=== PATIENT | female | born 1980 | race Caucasian/White ===

== ENCOUNTER 2016-06-30 07:32 | Inpatient (IN) ==
--- NOTE | 2016-06-30 07:42 | Emergency Department Note ---
Disposition Clinical Impression: Pleural effusion Anemia Qualifiers: Anemia type: unspecified type Qualified Code(s): D64.9 - Anemia, unspecified Chest pain Qualifiers: Chest pain type: unspecified Qualified Code(s): R07.9 - Chest pain, unspecified Pneumonia Qualifiers: Pneumonia type: due to unspecified organism Laterality: unspecified laterality Lung location: unspecified part of lung Qualified Code(s): J18.9 - Pneumonia, unspecified organism Disposition: Admitted As Inpatient Condition: Fair Referrals: Colt Espinoza MD [Primary Care Provider] - Time of Disposition: 09:41 SOB HPI - General Stated Complaint: MARCO/ Chest tightness Time Seen by Provider: 06/30/16 07:35 Source: patient Mode of arrival: wheelchair Limitations: no limitations Nursing Notes Reviewed: Yes Vital Signs Reviewed: Yes - History of Present Illness 35-year-old renal failure patient who comes in complaining of shortness of breath and chest pain. Patient was hospitalized outside facility discharge yesterday. Patient did have dialysis yesterday at [facility]. Renal dialysis doctor is Dr. Aly. Pt Subjective Complaint: shortness of breath, chest pain Onset (ago): week(s) (2) Context: recent illness Severity: moderate Consistency/Duration: constant Worsens with: exertion Known history of: congestive heart failure Associated symptoms: Reports: chest pain Treatment prior to arrival: none - Related Data Home Medications Medication Instructions Recorded Confirmed HYDROcodone/Acet 10/325 mg [[place] 1 tab PO QID PRN 01/21/16 04/21/16 10-325 mg] Atorvastatin [Lipitor] 40 mg PO DAILY 04/20/16 04/21/16 CloNIDine HCl [Kapvay] 0.1 mg PO DAILY 04/20/16 04/21/16 ClonazePAM [Klonopin] 2 mg PO BID PRN 04/20/16 04/20/16 Metoclopramide [Reglan] 10 mg PO Q6HR PRN 04/20/16 04/21/16 Pantoprazole Sodium [Protonix] 40 mg PO DAILY 04/20/16 04/20/16 Venlafaxine XR (24 HR) [Effexor XR] 37.5 mg PO HS 04/20/16 04/21/16 Insulin ASPART [NovoLOG] 2 - 10 unit SQ TIDWM 04/21/16 04/21/16 Previous Rx's Medication Instructions Recorded Insulin DETEMIR [Levemir] 80 unit SQ HS [id number] 12/18/15 Aspirin 81 mg PO DAILY #30 tab.chew 12/22/15 Darbepoetin [Aranesp] 60 mcg SQ QWEEK syringe 01/23/16 Ibuprofen [Motrin] 400 mg PO Q6HR PRN 10 Days 01/26/16 Metoprolol [Lopressor] 25 mg PO BID 30 Days 01/26/16 Amlodipine [Norvasc] 5 mg PO BID 30 Days 04/23/16 CloNIDine HCl 0.1 mg PO TID 14 Days 04/23/16 Clopidogrel [Plavix] 75 mg PO DAILY tablet 04/23/16 Isosorbide MONOnitrate (24 HR) 120 mg PO DAILY 30 Days 04/23/16 [Imdur] Lisinopril [Zestril] 20 mg PO BID 30 Days 04/23/16 Omeprazole [PriLOSEC] 20 mg PO BID capsule. 04/23/16 Sennosides/Docusate Sodium [Senna 2 each PO BID PRN #0 tablet 04/23/16 Plus] Allergies Allergy/AdvReac Type Severity Reaction Status Date / Time Amoxicillin Allergy Hives Verified 04/21/16 08:16 ondansetron AdvReac Vomiting Verified 01/25/16 10:04 [From Zofran (as hydrochloride)] Constitutional: Denies: fever, chills, weakness, weight change Eyes: Denies: eye pain, eye discharge, vision change ENT ED: Denies: ear pain, throat pain, dental pain, hearing loss, epistaxis, congestion, dysphagia Cardiovascular: Reports: chest pain, dyspnea on exertion. Denies: palpitations , edema, syncope Respiratory: Reports: dyspnea. Denies: cough, wheezes, hemoptysis, stridor Gastrointestinal: Denies: abdominal pain, nausea, vomiting, diarrhea, constipation, hematemesis, melena, hematochezia Genitourinary: Denies: dysuria, frequency, hematuria, discharge Musculoskeletal: Denies: back pain, neck pain, arthralgia, myalgia Integumentary: Denies: rash, abrasion, lesions Neurological: Denies: headache, weakness, numbness, paresthesias, confusion, abnormal gait, vertigo Psychiatric: Denies: anxiety, depression, suicidal thoughts, homicidal thoughts , auditory hallucinations, visual hallucinations Endocrine: Denies: fatigue Hematological/Lymphatic: Denies: easy bleeding, easy bruising Allergic/Immunologic: Denies: facial swelling, urticaria Past Medical History - Past Medical History Medical history: Reports: diabetes, dialysis, hypertension, renal disease Surgical history: Reports: hysterectomy, other Psychiatric history: Reports: anxiety, depression [employer] history: Reports: other - Social History Smoking Status: Former smoker Smokeless Tobacco Status: No Alcohol use: Reports: none Drug use: Reports: none Physical Exam - General Limitations: no limitations General appearance: alert, in no apparent distress - Head Head exam: atraumatic, normocephalic, normal inspection - Eye Eye exam: Present: normal appearance, PERRL, EOMI - ENT ENT exam: normal exam, normal oropharynx, mucous membranes moist - Neck Neck exam: Present: normal inspection, full ROM, trachea midline - Chest Chest inspection: Present: normal inspection, symmetric chest wall rise - Respiratory Respiratory exam: Present: normal lung sounds bilaterally - Cardiovascular Cardiovascular exam: Present: regular rate, normal rhythm, normal heart sounds - Abdominal Exam Abdominal exam: Present: soft, Non-Tender. Absent: tenderness, distention, guarding, rebound, rigidity - Extremities Exam Extremities exam: Present: other (Transmetatarsal amputation of the left foot). Absent: tenderness, pedal edema - Expanded Lower Extremity Exam Neurovascular/Tendon exam: Absent: motor deficit, sensory deficit, tendon deficit Gait: not tested/not observed - Back Exam Back exam: Present: normal inspection - Neurological Exam Neurological exam: Present: alert, oriented X3. Absent: motor sensory deficit - Psychiatric Psychiatric exam: Present: normal affect, normal mood Course - Consultations Consultation #1: Discussed with , admit. Time: 09:40 Consultation #2: Discussed with , admit. Time: 10:25 Vital Signs Temperature 97.8 F 06/30/16 07:40 Pulse Rate 90 06/30/16 07:40 Respiratory Rate 20 06/30/16 07:40 Blood Pressure 194/96 06/30/16 07:40 O2 Sat by Pulse Oximetry 98 06/30/16 07:40 Temperature 97.8 F 06/30/16 07:40 Pulse Rate 90 06/30/16 09:30 Respiratory Rate 18 06/30/16 09:30 Blood Pressure 181/90 06/30/16 09:30 O2 Sat by Pulse Oximetry 100 06/30/16 09:30 Oxygen Delivery Oxygen Delivery Nasal Cannula Shortness of Breath/Dyspnea - Lab Data Result diagrams: 06/30/16 08:46 06/30/16 08:46 Lab Results 06/30/16 06/30/16 06/30/16 Range/Units 08:46 08:46 08:46 WBC 6.9 (4.3-11.1) K/mcL RBC 2.55 L (3.82-4.97) M/mcL Hgb 6.8 L (11.5-15.4) g/dL Hct 21.9 L (35.3-44.9) % MCV 85.9 (83.0-100.0) fL MCH 26.7 L (28.0-33.3) pg MCHC 31.1 L (31.6-35.5) g/dL RDW 16.9 H (11.5-14.5) % Plt Count 378 (140-400) K/mcL MPV 9.8 (9.4-12.4) fL Immature Gran % 1.0 (0-4) % Seg Neutrophils % 78.9 % Lymphocytes % 7.4 % Monocytes % 10.0 % Eosinophils % 2.6 % Basophils % 0.1 % Neutrophils # 5.5 (1.6-8.9) K/mcL Lymphocytes # 0.5 L (0.6-4.6) K/mcL Monocytes # 0.7 (0.0-1.3) K/mcL Eosinophils # 0.2 (0.0-0.6) K/mcL Basophils # 0.0 (0.0-0.2) K/mcL PT 12.2 H (9.4-12.1) Seconds INR 1.1 APTT 32.0 (26.0-36.0) Seconds Sodium (136-145) mEq/L Potassium (3.5-4.5) mEq/L Chloride (98-109) mEq/L Carbon Dioxide (19-29) mEq/L BUN (7-20) mg/dL Creatinine (0.57-1.11) mg/dL Est GFR ( Amer) (> 60) Est GFR (Non-Af Amer) (> 60) BUN/Creatinine Ratio (6-26) Glucose (70-99) mg/dL Calculated Osmolality (280-300) Calcium (8.6-10.8) mg/dL Total Bilirubin (0.2-1.2) mg/dL Direct Bilirubin (0.0-0.5) mg/dL Indirect Bilirubin (0.0-1.2) mg/dL AST (5-34) Units/L ALT (0-55) Units/L Alkaline Phosphatase (38-126) Units/L Troponin I (0-0.03) ng/mL B-Natriuretic Peptide 1593 H (0-100) pg/mL Serum Total Protein (6.0-8.3) g/dL Albumin (3.5-5.0) g/dL Globulin (2.4-3.5) g/dL Albumin/Globulin Ratio (1.1-2.2) Amylase (25-125) Units/L Lipase (8-78) Units/L 06/30/16 06/30/16 Range/Units 08:46 08:46 WBC (4.3-11.1) K/mcL RBC (3.82-4.97) M/mcL Hgb (11.5-15.4) g/dL Hct (35.3-44.9) % MCV (83.0-100.0) fL MCH (28.0-33.3) pg MCHC (31.6-35.5) g/dL RDW (11.5-14.5) % Plt Count (140-400) K/mcL MPV (9.4-12.4) fL Immature Gran % (0-4) % Seg Neutrophils % % Lymphocytes % % Monocytes % % Eosinophils % % Basophils % % Neutrophils # (1.6-8.9) K/mcL Lymphocytes # (0.6-4.6) K/mcL Monocytes # (0.0-1.3) K/mcL Eosinophils # (0.0-0.6) K/mcL Basophils # (0.0-0.2) K/mcL PT (9.4-12.1) Seconds INR APTT (26.0-36.0) Seconds Sodium 129 L (136-145) mEq/L Potassium 4.5 (3.5-4.5) mEq/L Chloride 96 L (98-109) mEq/L Carbon Dioxide 20 (19-29) mEq/L BUN 59 H (7-20) mg/dL Creatinine 6.99 H (0.57-1.11) mg/dL Est GFR ( Amer) 8 L (> 60) Est GFR (Non-Af Amer) 7 L (> 60) BUN/Creatinine Ratio 8 (6-26) Glucose 158 H (70-99) mg/dL Calculated Osmolality 288 (280-300) Calcium 8.5 L (8.6-10.8) mg/dL Total Bilirubin 0.4 (0.2-1.2) mg/dL Direct Bilirubin 0.2 (0.0-0.5) mg/dL Indirect Bilirubin 0.2 (0.0-1.2) mg/dL AST 10 (5-34) Units/L ALT 7 (0-55) Units/L Alkaline Phosphatase 126 (38-126) Units/L Troponin I 0.06 H* (0-0.03) ng/mL B-Natriuretic Peptide (0-100) pg/mL Serum Total Protein 7.5 (6.0-8.3) g/dL Albumin 2.6 L (3.5-5.0) g/dL Globulin 4.9 H (2.4-3.5) g/dL Albumin/Globulin Ratio 0.5 L (1.1-2.2) Amylase 31 (25-125) Units/L Lipase 26 (8-78) Units/L - EKG Data EKG attestation: Yes I reviewed and interpreted this EKG. EKG shows normal: Reports: sinus rhythm Rate: Reports: normal Rhythm: Reports: NSR T wave inversions noted in: Reports: I, aVL, v6 When compared to previous EKG there are: changes noted (New T-wave inversion in lead 1 aVL and V6) Interpretation: Reports: no acute changes
[2016-06-30 09:00] LABS: Basophils % 0.1 %; Eosinophils # 0.2 K/mcL (0.0-0.6); Eosinophils % 2.6 %; Hematocrit 21.9 % (35.3-44.9); Hemoglobin 6.8 g/dL (11.5-15.4); Lymphocytes # 0.5 K/mcL (0.6-4.6); Lymphocytes % 7.4 %; Mean Corpuscular HGB Conc 31.1 g/dL (31.6-35.5); Mean Corpuscular Hemoglobin 26.7 pg (28.0-33.3); Mean Corpuscular Volume 85.9 fL (83.0-100.0); Mean Platelet Volume 9.8 fL (9.4-12.4); Monocytes # 0.7 K/mcL (0.0-1.3); Neutrophils # 5.5 K/mcL (1.6-8.9); Platelet Count 378 K/mcL (140-400); Red Blood Count 2.55 M/mcL (3.82-4.97); Red Cell Distribution Width 16.9 % (11.5-14.5); Segmented Neutrophils % 78.9 %
[2016-06-30] MEDS ORDERED: *HR* HYDROmorphone (PF) 1 MG/ML SYRINGE IVP ONE ×2 (09:09→10:27)
[2016-06-30 09:11] LABS: INR 1.1; Prothrombin Time 12.2 Seconds (9.4-12.1)
[2016-06-30] MEDS ORDERED: Metoclopramide 10 MG/2 ML VIAL IVP ONE (09:13)
[2016-06-30 09:16] LABS: Albumin 2.6 g/dL (3.5-5.0); Albumin/Globulin Ratio 0.5 (1.1-2.2); Bilirubin,Direct 0.2 mg/dL (0.0-0.5); Bilirubin,Indirect 0.2 mg/dL (0.0-1.2); Bilirubin,Total 0.4 mg/dL (0.2-1.2); Calcium 8.5 mg/dL (8.6-10.8); Globulin 4.9 g/dL (2.4-3.5); Potassium 4.5 mEq/L (3.5-4.5); Total Protein 7.5 g/dL (6.0-8.3)
[2016-06-30] MEDS ORDERED: Azithromycin 500 MG in D5% in Water 250 ML IVPB ONE (09:42)
[2016-06-30] MEDS ORDERED: cloNIDine HCl 0.1 MG TABLET PO ONE (10:52)
[2016-06-30] MEDS ORDERED: Acetaminophen 325 MG TABLET PO PRN (10:57)
[2016-06-30] MEDS ORDERED: Naloxone 0.4 MG/ML INJ IVP PRN (10:57)
[2016-06-30] MEDS ORDERED: Sennosides/Docusate Sodium TABLET PO PRN (11:11)
[2016-06-30] MEDS ORDERED: Metoclopramide 10 MG/10 ML UD.LIQ PO PRN (11:11)
[2016-06-30] MEDS ORDERED: *HR* HYDROcodone/Acet 10/325 mg TABLET PO PRN (11:11)
[2016-06-30] MEDS ORDERED: Isosorbide MONOnitrate (24 HR) 30 MG TAB.ER.24H PO SCH (11:15)
[2016-06-30] MEDS: *HR* Morphine 2 MG/ML SYRINGE IVP PRN ×3 (12:47→20:55)
--- NOTE | 2016-06-30 12:57 | Internal Med History&Physical ---
Date of Encounter: 06/30/16 Time of Encounter: 10:30 Assessment and Plan (1) Hypertensive urgency Current visit: Yes Status: Acute noted to have h/o- uncontrolled HTN; will give all her home meds, FIRST DOSE NOW ; she is noted to be on multiple antihypertensives- beta-keesha, ACEI, nitrate , calcium channel keesha, Clonidine; (2) Anemia Current visit: Yes Status: Acute Acute on chronic anemia, normocytic, related to chronic disease- Case d/w Nephrology by ER physician, plan to transfuse 1unit PRBC and monitor Hb; check stool for occult blood and avoid anticoagulation if possible; need to continue antiplatelets for now in light of new coronary stents; no evidence of active blood loss; receives Epogen and Aranesp; Qualifiers: Anemia type: unspecified type Qualified Code(s): D64.9 - Anemia, unspecified (3) Chest pain Current visit: Yes Status: Acute likely related to uncontrolled HTN; Troponin leak is likely related to HTN and ESRD, noted to have chronic slight elevation in Troponin; continue Telemetry monitoring; trend Troponins; continue ASA, Plavix and statin and beta-keesha; patient underwent recent stent placement, try to obtain records; will consult Cardiology if Troponins trend up or if patient has acute chest pain; Qualifiers: Chest pain type: precordial chest pain Qualified Code(s): R07.2 - Precordial pain (4) Pleural effusion Current visit: Yes Status: Chronic Recurrent chronic left pleural effusion; less likely Pneumonia after reviewing previous chest XRay imaging; this is likely due to noncompliance with HD sessions; reinforced compliance; (5) Medical non-compliance Current visit: Yes Status: Chronic (6) CAD (coronary artery disease) Current visit: Yes Status: Chronic plan as above; continue home meds; Qualifiers: Coronary Disease-Associated Artery/Lesion type: [place] artery [place] vs. transplanted heart: [place] heart Associated angina: without angina Qualified Code(s): I25.10 - Atherosclerotic heart disease of [place] coronary artery without angina pectoris (7) DM type 1 (diabetes mellitus, type 1) Current visit: Yes Status: Chronic Accucheck blood glucose monitoring with basal bolus insulin regimen; diabetic diet; noted to be non-compliant with insulin at home; Qualifiers: Diabetes mellitus complication status: with kidney complications Diabetes mellitus complication detail: with chronic kidney disease Chronic kidney disease stage: on chronic dialysis Qualified Code(s): E10.22 - Type 1 diabetes mellitus with diabetic chronic kidney disease; N18.6 - End stage renal disease; Z99.2 - Dependence on renal dialysis (8) ESRD (end stage renal disease) on dialysis Current visit: Yes Status: Chronic Reports change in HD schedule to MWF; underwent HD yesterday; Nephrology consulted by ER physician; continue home meds; (9) Gastroparesis Current visit: Yes Status: Chronic diabetic; continue prokinetics and PRN antiemetics; Internal Medicine - H&P: HPI Chief complaint: Shortness of breath Admitted From: Emergency Dept Plans for Post Hospital Care: Home History of present illness: Ms. Benavidez is a 35 year old female with history of end-stage renal disease on hemodialysis, type 1 diabetes and hypertension with medical noncompliance presents with complaints of shortness of breath and chest tightness that started last night. Patient provides a vague history and unable to provide specific details regarding her complaints. She reports her pain was retrosternal, radiating to both sides of her back, intermittent, relieved with using oxygen facemask, moderate in intensity and pressure-like sensation. No orthopnea, leg swelling, palpitations or syncope. She also had some difficulty breathing associated with the chest pain, with no wheezing. She reports chronic dry cough with no fever or chills, no nausea or vomiting. No hematemesis, melena or hematochezia. She does use oxygen at home at 2-3 L/m via nasal cannula but she also has a simple face mask that she uses during episodes of anxiety. She is noted to be noncompliant with her medications and hemodialysis sessions and noted to have uncontrolled blood pressure and chronic left-sided pleural effusion. She was recently hospitalized at [facility] with similar complaints and discharged 2 days back. Past Med Surg Social Fam HX - Past Medical History Medical history: coronary artery disease, diabetes, dialysis, hypertension, renal disease Psychiatric history: anxiety, depression - Past Surgical History Surgical History: hysterectomy (Tubal ligation), other (Adenoidectomy, right below-knee amputation) - Social History Smoking Status: Current some day smoker (Smoked about 1 pack per day for 20 years, quit smoking 2 months ago, smokes a few occasionally) Smokeless Tobacco Status: No Alcohol use: none Drug use: none Occupational status: disabled Current living situation: Home Activity Level: Independent ambulation Recent Out of Country Travel Within the Last 8 Weeks: No Exposure or Possible Exposure to Illness During Travel: No - Family History Mother Adopted: No Family Member Ethnicity: Non- Living Status: Still Living Hx Family Cardiac Disorders: Yes (Father with coronary artery disease) Hx Family Respiratory Disorders: No Hx Family Cancer: Yes (2008 breast cancer) Hx Family GI Disorders: No Hx Family Endocrine Disorder: Yes (Mother with dm) Hx Family Neuromuscular Disorders: No Hx Family Neurologic Disorders: No Hx Family HEENT Disorders: No Hx Family Autoimmune Disorders: No - Additional Family History Additional family history: Multiple family members with DM Internal Medicine - H&P: Meds Insulin DETEMIR [Levemir] 80 unit SQ HS [id number] 12/18/15 [Rx] Aspirin 81 mg PO DAILY #30 tab.chew 12/22/15 [Rx] HYDROcodone/Acet 10/325 mg [[place] 10-325 mg] 1 tab PO QID PRN 01/21/16 [History] Darbepoetin [Aranesp] 60 mcg SQ QWEEK syringe 01/23/16 [Rx] Ibuprofen [Motrin] 400 mg PO Q6HR PRN 10 Days 01/26/16 [Rx] Metoprolol [Lopressor] 25 mg PO BID 30 Days 01/26/16 [Rx] ClonazePAM [Klonopin] 2 mg PO BID PRN 04/20/16 [History] Metoclopramide [Reglan] 10 mg PO Q6HR PRN 04/20/16 [History] Pantoprazole Sodium [Protonix] 40 mg PO DAILY 04/20/16 [History] Venlafaxine XR (24 HR) [Effexor XR] 37.5 mg PO HS 04/20/16 [History] Insulin ASPART [NovoLOG] 2 - 10 unit SQ TIDWM 04/21/16 [History] Clopidogrel [Plavix] 75 mg PO DAILY tablet 04/23/16 [Rx] Isosorbide MONOnitrate (24 HR) [Imdur] 120 mg PO DAILY 30 Days 04/23/16 [Rx] Lisinopril [Zestril] 20 mg PO BID 30 Days 04/23/16 [Rx] Omeprazole [PriLOSEC] 20 mg PO BID raymond. 04/23/16 [Rx] Sennosides/Docusate Sodium [Senna Plus] 2 each PO BID PRN #0 tablet 04/23/16 [Rx ] Amlodipine/Atorvastatin [[place] 5 mg-40 mg Tablet] 1 tab PO DAILY 06/30/16 [ History] CloNIDine [Catapres-Tts 1] 0.2 mg TD QWEEK 06/30/16 [History] NIFEdipine [Nifedical Xl] 60 mg PO DAILY 06/30/16 [History] Allergies Amoxicillin Allergy (Verified 04/21/16 08:16) Hives ondansetron [From Zofran (as hydrochloride)] Adverse Reaction (Verified 10:04) Vomiting All Systems PM: A 10-system review of systems was performed and is negative for pertinent findings except as documented above in the HPI. - Constitutional Constitutional: no chills, no fever(s), no night sweats - EENT Eyes: no change in vision, no discharge, no pain, no photophobia Ears: no ear discharge, no ear pain, no tinnitus Nose, mouth and throat: no dysphagia, no nasal discharge, no neck pain, no sore throat - Cardiovascular Cardiovascular ROS IM: chest pain, dyspnea - Respiratory Respiratory: cough - Gastrointestinal Gastrointestinal: dysphagia, no abdominal pain, no diarrhea, no hematemesis, no hematochezia, no melena, no nausea, no vomiting - Genitourinary Genitourinary: no change in urinary stream, no dysuria, no flank pain, no hematuria - Musculoskeletal Musculoskeletal ROS IM: no numbness, no tingling - Integumentary Integumentary IM: no rash, no unusual bruising - Neurological Neurological ROS: no confusion, no convulsions, no focal weakness, no numbness, no tingling, no tremor(s) - Hematologic/Lymphatic Hematologic/Lymphatic: no easy bruising - Constitutional Vitals: Temp Pulse Resp BP Pulse Ox 98.4 F 89 16 173/94 100 06/30/16 11:03 06/30/16 11:03 06/30/16 11:03 06/30/16 11:03 06/30/16 11:03 General appearance: Present: A&O X 3, answers questions appropriately - Head Head exam: Present: atraumatic, normocephalic - Neck Neck exam general surgery: Present: supple, trachea midline. Absent: lymphadenopathy - Respiratory Respiratory exam: Present: decreased breath sounds (At left base), CTAB. Absent : accessory muscle use, rales, rhonchi, wheezes - Cardiovascular Cardiovascular exam: Present: RRR, +S1, +S2. Absent: diastolic murmur, gallop, rubs, systolic murmur - GI/Abdominal GI/Abdominal exam: Present: normal bowel sounds, soft (obese and nontender), no peritoneal signs. Absent: distended, tenderness - Extremities Exam Extremities exam: Present: warm, radial pulses palpable and symetrical. Absent : calf tenderness, cyanotic, pedal edema Additional comments: s/p right BKA, stump clean; no significant pedal edema in left leg - Neurological Exam Neurological exam: Present: CN II-XII intact, oriented X3, no focal deficits. Absent: pronater drift, facial droop, speech deficit - Skin Skin exam: Present: dry, intact Internal Med - H&P Results - Labs CBC & Chem 7: 06/30/16 08:46 06/30/16 08:46 Labs: Cardiac Enzymes 06/30/16 Range/Units 11:35 Troponin I 0.06 H* (0-0.03) ng/mL
[2016-06-30] MEDS ORDERED: D5% in Water 1,000 ML IV PRN (14:11)
[2016-06-30] MEDS ORDERED: *HR* Dextrose 50 % in Water (Syg) 50 ML SYRINGE IVP PRN (14:11)
[2016-06-30] MEDS ORDERED: Dextrose Gel 15 GM PO PRN ×2 (14:11)
[2016-06-30] MEDS: NIFEdipine XL (24 HR) 60 MG TAB.ER.24 PO SCH (14:31)
[2016-06-30] MEDS: Isosorbide MONOnitrate (24 HR) 60 MG TAB.ER.24H PO SCH (14:31)
[2016-06-30] MEDS: Lisinopril 20 MG TABLET PO SCH ×2 (14:31→20:54)
[2016-06-30 15:09] LABS: Hemoglobin A1C 7.4 %
[2016-06-30] MEDS: Insulin LISPRO 300 UNITS/3 ML VIAL SQ SCH ×2 (15:38→22:47)
[2016-06-30] MEDS ORDERED: 0.9 % Sodium Chloride 500 ML ONE (16:22)
[2016-06-30] MEDS: *HR* Promethazine 25 MG/ML VIAL IVP PRN (18:34)
[2016-06-30] MEDS ORDERED: Venlafaxine XR (24 HR) 75 MG CAP.ER.24H PO SCH (21:00)
[2016-06-30] MEDS: Insulin DETEMIR 100 UNIT/ML X5UNITS SQ SCH (22:47)
[2016-06-30] MEDS: Venlafaxine XR (24 HR) 37.5 MG CAP.ER.24H PO SCH (22:47)
[2016-06-30] MEDS: clonazePAM 1 MG TABLET PO PRN (22:50)
[2016-07-01] MEDS: *HR* Promethazine 25 MG/ML VIAL IVP PRN ×4 (00:46→20:59)
[2016-07-01 01:43] LABS: Basophils % 0.5 %; Eosinophils # 0.2 K/mcL (0.0-0.6); Hematocrit 27.1 % (35.3-44.9); Immature Granulocytes % 0.9 % (0-4); Lymphocytes % 12.3 %; Mean Corpuscular HGB Conc 31.4 g/dL (31.6-35.5); Mean Corpuscular Hemoglobin 27.2 pg (28.0-33.3); Mean Corpuscular Volume 86.9 fL (83.0-100.0); Mean Platelet Volume 10.2 fL (9.4-12.4); Monocytes # 0.9 K/mcL (0.0-1.3); Monocytes % 11.1 %; Neutrophils # 5.7 K/mcL (1.6-8.9); Nucleated Red Blood Cells 0.3 /100 WBC (0); Platelet Count 293 K/mcL (140-400); Red Blood Count 3.12 M/mcL (3.82-4.97); Red Cell Distribution Width 16.4 % (11.5-14.5); Segmented Neutrophils % 72.2 %
[2016-07-01 01:51] LABS: Hemoglobin 8.5 g/dL (11.5-15.4)
[2016-07-01 01:55] LABS: Calcium 8.3 mg/dL (8.6-10.8); Magnesium 2.2 mg/dL (1.6-2.6); Potassium 4.9 mEq/L (3.5-4.5)
[2016-07-01 02:20] LABS: Hypochromasia Present (Not Present); Platelet Estimate Normal (Normal)
[2016-07-01] MEDS: *HR* Morphine 2 MG/ML SYRINGE IVP PRN ×3 (04:11→20:59)
[2016-07-01 04:59] LABS: Hematocrit 24.4 % (35.3-44.9); Hemoglobin 7.7 g/dL (11.5-15.4)
[2016-07-01] MEDS ORDERED: Aspirin 81 MG TAB.CHEW ONE (06:18)
[2016-07-01] MEDS: Aspirin 81 MG TAB.CHEW PO SCH (06:20)
[2016-07-01] MEDS: Lisinopril 20 MG TABLET PO SCH ×2 (07:41→19:51)
[2016-07-01] MEDS: cloNIDine HCl 0.1 MG TABLET PO SCH (07:41)
[2016-07-01] MEDS: NIFEdipine XL (24 HR) 60 MG TAB.ER.24 PO SCH (07:41)
[2016-07-01] MEDS: Isosorbide MONOnitrate (24 HR) 60 MG TAB.ER.24H PO SCH (07:41)
[2016-07-01] MEDS: Insulin LISPRO 300 UNITS/3 ML VIAL SQ SCH ×4 (07:42→20:11)
--- NOTE | 2016-07-01 08:12 | Nephrology Consult Note ---
Date of Encounter: 07/01/16 Time of Encounter: 08:10 Assessment and Plan (1) ESRD (end stage renal disease) on dialysis Current Visit: Yes Status: Chronic The patient will undergo her usual dialysis today. We will do a workup of her anemia including iron studies and stool guaiacs. She will receive additional blood transfusions on dialysis today. She will be maintained on Aranesp. She is just received her outpatient antihypertensive medications. We will make adjustments as necessary. (2) Anemia Current Visit: Yes Status: Acute Qualifiers: Anemia type: unspecified type Qualified Code(s): D64.9 - Anemia, unspecified (3) Chest pain Current Visit: Yes Status: Acute Qualifiers: Chest pain type: precordial chest pain Qualified Code(s): R07.2 - Precordial pain (4) Hypertensive urgency Current Visit: Yes Status: Acute (5) DM type 1 (diabetes mellitus, type 1) Current Visit: Yes Status: Chronic Qualifiers: Diabetes mellitus complication status: with kidney complications Diabetes mellitus complication detail: with chronic kidney disease Chronic kidney disease stage: on chronic dialysis Qualified Code(s): E10.22 - Type 1 diabetes mellitus with diabetic chronic kidney disease; N18.6 - End stage renal disease; Z99.2 - Dependence on renal dialysis History of Present Illness - History of Present Illness This is a 35-year-old female with end-stage renal disease in the setting of insulin requiring diabetes. Patient receives dialysis in [place] via a tunneled dialysis catheter 3 days per week. Patient has a history of poor compliance with dialysis attendance as well as poor compliance with medications. She has a history of chronic nausea for which she is seeing GI in the past. She has a history of drug-seeking behavior. She is admitted at this time with chest pain. She recently was hospitalized at [place] on multiple occasions. She reports that she had a coronary stent placed back in April. Currently her main complaint is that of some chest discomfort and shortness of breath. Her blood pressure is poorly controlled. She has a history of poor compliance with her antihypertensive medications. She presents with severe anemia with a hemoglobin of about 6.7. She denies any melena or hematochezia. She does have a history of chronic nausea as noted above. Past Med Surg Social Fam HX - Past Medical History Medical history: coronary artery disease, diabetes, dialysis, hypertension, renal disease Psychiatric history: anxiety, depression - Past Surgical History Surgical History: hysterectomy, other - Social History Smoking Status: Current some day smoker Smokeless Tobacco Status: No Alcohol use: none Drug use: none - Family History Mother Adopted: No Family Member Ethnicity: Non- Living Status: Still Living Hx Family Cardiac Disorders: Yes (Father with coronary artery disease) Hx Family Respiratory Disorders: No Hx Family Cancer: Yes (Breast) Hx Family GI Disorders: No Hx Family Endocrine Disorder: Yes (Mother with dm) Hx Family Neuromuscular Disorders: No Hx Family Neurologic Disorders: No Hx Family HEENT Disorders: No Hx Family Autoimmune Disorders: No Medications and Allergies Insulin DETEMIR [Levemir] 80 unit SQ HS [id number] 12/18/15 [Rx] Aspirin 81 mg PO DAILY #30 tab.chew 12/22/15 [Rx] HYDROcodone/Acet 10/325 mg [[place] 10-325 mg] 1 tab PO QID PRN 01/21/16 [History] Darbepoetin [Aranesp] 60 mcg SQ QWEEK syringe 01/23/16 [Rx] Ibuprofen [Motrin] 400 mg PO Q6HR PRN 10 Days 01/26/16 [Rx] Metoprolol [Lopressor] 25 mg PO BID 30 Days 01/26/16 [Rx] ClonazePAM [Klonopin] 2 mg PO BID PRN 04/20/16 [History] Metoclopramide [Reglan] 10 mg PO Q6HR PRN 04/20/16 [History] Pantoprazole Sodium [Protonix] 40 mg PO DAILY 04/20/16 [History] Venlafaxine XR (24 HR) [Effexor XR] 37.5 mg PO HS 04/20/16 [History] Insulin ASPART [NovoLOG] 2 - 10 unit SQ TIDWM 04/21/16 [History] Clopidogrel [Plavix] 75 mg PO DAILY tablet 04/23/16 [Rx] Isosorbide MONOnitrate (24 HR) [Imdur] 120 mg PO DAILY 30 Days 04/23/16 [Rx] Lisinopril [Zestril] 20 mg PO BID 30 Days 04/23/16 [Rx] Omeprazole [PriLOSEC] 20 mg PO BID capsule. 04/23/16 [Rx] Sennosides/Docusate Sodium [Senna Plus] 2 each PO BID PRN #0 tablet 04/23/16 [Rx ] Amlodipine/Atorvastatin [Caduet 5 mg-40 mg Tablet] 1 tab PO DAILY 06/30/16 [ History] CloNIDine [Catapres-Tts 1] 0.2 mg TD QWEEK 06/30/16 [History] NIFEdipine [Nifedical Xl] 60 mg PO DAILY 06/30/16 [History] Allergies Amoxicillin Allergy (Verified 04/21/16 08:16) Hives ondansetron [From Zofran (as hydrochloride)] Adverse Reaction (Verified 10:04) Vomiting Review of Systems Constitutional: weakness, no excessive sweating, no weight loss Eyes: bilateral: blurred vision (patient denies), diplopia (patient denies) Nose, mouth and throat: no dizziness, no headache(s) Cardiovascular: chest pain at rest, chest pain with activity, dyspnea on exertion Respiratory: dyspnea, dyspnea on exertion Gastrointestinal: as per HPI, nausea Musculoskeletal: as per HPI Integumentary: no hirsutism, no striae Neurological: weakness Psychiatric: no depression, no difficulty concentrating Endocrine: as per HPI Hematologic/Lymphatic: no easy bruising, no lymphadenopathy Exam - Vital Signs Vital signs: Initial Vital Signs Temp Pulse Resp BP Pulse Ox 97.8 F 90 20 194/96 98 06/30/16 07:40 06/30/16 07:40 06/30/16 07:40 06/30/16 07:40 06/30/16 07:40 Vital Signs - Last 8 Hours Temp Pulse Resp BP Pulse Ox 07/01/16 08:01 96 07/01/16 07:38 97.5 F L 86 16 210/98 96 07/01/16 05:06 97.4 F L 83 18 189/111 97 07/01/16 01:27 97.5 F L 83 18 181/96 96 Intake and Output 06/30/16 07/01/16 07/01/16 23:59 07:59 15:59 Intake Total 350 / 350 Balance 350 / 350 Intake: Blood Product 350 / 350 Rbcs Leuko Poor As-1 350 / 350 Unit [id number] Other: Stool Size Large Stool Consistency loose soft Stool Characteristics Normal for Patient Stool Color Brown # Bowel Movements 1 Weight 98.883 kg Blood Glucose* 154 52 Patient Weight 07/01/16 23:59 Weight 98.883 kg - General Appearance Exam: Patient is alert and oriented. She appears chronically ill. Supple. Lungs mesh breath sounds otherwise clear. Heart regular rhythm with a 2/6 systolic ejection murmur. Abdomen demonstrates no bowel sounds no bruits masses in a megaly or tenderness. Patient is status post left transmetatarsal amputation right below-knee amputation. There is no peripheral edema. There is a tunnel dialysis catheter in the right side of the chest. Results - Lab Results 07/01/16 04:50 07/01/16 01:27 Most recent lab results Calcium 8.3 mg/dL (8.6-10.8) L 07/01/16 01:27 Magnesium 2.2 mg/dL (1.6-2.6) 07/01/16 01:27 Consult Discharge Plan - Plan
[2016-07-01] MEDS ORDERED: 0.9 % Sodium Chloride 250 ML IV PRN (08:16)
--- NOTE | 2016-07-01 09:35 | Electrocardiograph Report ---
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
[2016-07-01 11:13] LABS: Phosphorous 8.2 mg/dL (2.3-4.7)
[2016-07-01 11:39] LABS: Hepatitis B Surface Antigen Nonreactive (Nonreactive)
[2016-07-01 11:40] LABS: Hepatitis B Surface Antibody 20.87 mIU/mL
[2016-07-01 11:52] LABS: Folate 4.8 ng/mL (7.0-31.4)
[2016-07-01] MEDS ORDERED: *HR* HYDROcodone/Acet 7.5/325 mg TABLET PO PRN (13:21)
[2016-07-01] MEDS: *HR* HYDROcodone/Acet 10/325 mg TABLET PO PRN (16:28)
[2016-07-01] MEDS: clonazePAM 1 MG TABLET PO PRN (19:51)
[2016-07-01] MEDS: Venlafaxine XR (24 HR) 37.5 MG CAP.ER.24H PO SCH (19:51)
[2016-07-01] MEDS: Insulin DETEMIR 100 UNIT/ML X5UNITS SQ SCH (20:10)
[2016-07-02] MEDS: *HR* Morphine 2 MG/ML SYRINGE IVP PRN ×3 (01:45→10:22)
[2016-07-02] MEDS: *HR* Promethazine 25 MG/ML VIAL IVP PRN ×3 (03:25→17:25)
[2016-07-02 08:14] LABS: Basophils % 0.6 %; Eosinophils # 0.2 K/mcL (0.0-0.6); Eosinophils % 2.7 %; Hematocrit 29.4 % (35.3-44.9); Hemoglobin 9.6 g/dL (11.5-15.4); Immature Platelets 2.3 % (1.1-6.1); Lymphocytes # 0.8 K/mcL (0.6-4.6); Lymphocytes % 12.1 %; Mean Corpuscular HGB Conc 32.7 g/dL (31.6-35.5); Mean Corpuscular Hemoglobin 27.2 pg (28.0-33.3); Mean Corpuscular Volume 83.3 fL (83.0-100.0); Mean Platelet Volume 9.5 fL (9.4-12.4); Monocytes % 14.4 %; Neutrophils # 4.8 K/mcL (1.6-8.9); Platelet Count 427 K/mcL (140-400); Red Blood Count 3.53 M/mcL (3.82-4.97); Red Cell Distribution Width 16.7 % (11.5-14.5); Segmented Neutrophils % 69.2 %
--- NOTE | 2016-07-02 08:23 | Nephrology Progress Note ---
Date of Encounter: 07/02/16 Time of Encounter: 08:05 - Assessment and Plan (1) ESRD (end stage renal disease) on dialysis Current Visit: Yes Status: Chronic Denies CP. HD tomorrow, keeping MWF schedule. Subjective Interval history: Sitting up in bed watching tv and eating breakfast. Denies CP. Admits SOB and states cannot lay down because MAR[place]. O2NC. Does not appear in any distress and there is no conversational SOB. Objective - Vital Signs Vital signs: Vital Signs Temp Pulse Resp BP Pulse Ox 07/02/16 07:20 97.4 F L 89 18 182/81 95 07/02/16 03:32 97.4 F L 90 18 176/84 96 07/01/16 23:57 97.6 F 94 16 183/81 96 07/01/16 20:04 98.1 F 97 16 167/85 98 07/01/16 14:20 97.7 F 20 162/88 07/01/16 14:10 153/78 07/01/16 14:00 158/85 07/01/16 13:45 138/89 07/01/16 13:43 97.6 F 81 20 150/86 07/01/16 13:30 150/86 07/01/16 13:15 158/92 07/01/16 13:00 146/87 07/01/16 12:45 176/95 07/01/16 12:30 171/98 07/01/16 12:20 97.5 F L 83 20 161/99 07/01/16 12:15 161/99 07/01/16 12:05 97.7 F 84 18 175/104 07/01/16 12:00 175/104 07/01/16 11:56 97.7 F 83 18 175/104 07/01/16 11:46 97.6 F 83 20 181/105 07/01/16 11:45 181/105 07/01/16 11:31 97.6 F 96 20 93/49 07/01/16 11:30 153/102 07/01/16 11:15 186/109 07/01/16 11:00 182/111 07/01/16 10:45 196/109 07/01/16 10:40 97.5 F L 20 194/115 Intake and Output 07/01/16 07/02/16 07/02/16 23:59 07:59 15:59 Intake Total 120 / 120 480 / 480 Output Total 0 / 0 Balance 120 / 120 480 / 480 Intake: Oral 120 / 120 480 / 480 Output: Urine 0 / 0 Other: Meal SNACK JELLO Stool Size Moderate Stool Consistency soft Stool Color Brown Weight 96.116 kg Blood Glucose* 198 100 Patient Weight 07/02/16 23:59 Weight 96.116 kg - General Appearance General appearance: Present: well-developed, well-nourished, appears started age , obese EENT: Present: mucous membranes moist Neck: Present: no JVD Additional Comments: scattered rhonchi Cardiology: Present: no edema, regular rate, regular rhythm Additional Comments: R BKA Gastrointestinal: Present: hypoactive bowel sounds, no tenderness, no guarding Integumentary: Present: warm and dry Neurologic: Present: alert and oriented x3 Psychiatric: Present: mood/affect appropriate, cooperative - Lab 07/02/16 08:00 07/01/16 01:27 Most recent lab results Calcium 8.3 mg/dL (8.6-10.8) L 07/01/16 01:27 Phosphorus 8.2 mg/dL (2.3-4.7) H 07/01/16 10:42 Magnesium 2.2 mg/dL (1.6-2.6) 07/01/16 01:27 Consult Discharge Plan - Plan Referrals: Colt Espinoza MD [Primary Care Provider] - (possible ecf)
[2016-07-02] MEDS: Isosorbide MONOnitrate (24 HR) 60 MG TAB.ER.24H PO SCH (08:31)
[2016-07-02] MEDS: Lisinopril 20 MG TABLET PO SCH ×2 (08:31→21:00)
[2016-07-02] MEDS: cloNIDine HCl 0.1 MG TABLET PO SCH ×3 (08:31→20:59)
[2016-07-02] MEDS: Insulin LISPRO 300 UNITS/3 ML VIAL SQ SCH ×4 (08:32→21:30)
[2016-07-02] MEDS: Aspirin 81 MG TAB.CHEW PO SCH (08:46)
[2016-07-02] MEDS: NIFEdipine XL (24 HR) 60 MG TAB.ER.24 PO SCH ×2 (08:47→21:30)
[2016-07-02] MEDS: Metoclopramide 10 MG/10 ML UD.LIQ PO SCH ×2 (14:32→19:40)
--- NOTE | 2016-07-02 16:23 | Internal Med Progress Note ---
Date of Encounter: 07/02/16 Time of Encounter: 16:16 - Assessment and plan (1) Hypertensive urgency Current Visit: Yes Status: Acute Assessment and plan: was noted that clonidine was changed to oral daily and was using as patch will change to oral tid. have also increased to nifedipine 60mg bid. will observe for now, if BP still high will add hydralazine. (2) DM type 1 (diabetes mellitus, type 1) Current Visit: Yes Status: Chronic Qualifiers: Diabetes mellitus complication status: with kidney complications Diabetes mellitus complication detail: with chronic kidney disease Chronic kidney disease stage: on chronic dialysis Qualified Code(s): E10.22 - Type 1 diabetes mellitus with diabetic chronic kidney disease; N18.6 - End stage renal disease; Z99.2 - Dependence on renal dialysis (3) ESRD (end stage renal disease) on dialysis Current Visit: Yes Status: Chronic Assessment and plan: being managed by renal. (4) Gastroparesis Current Visit: Yes Status: Chronic (5) Abdominal pain Current Visit: No Status: Acute Assessment and plan: reports that she has persistent nausea and says that she has vomiting with blood in it. also reports that she sees blood in the stool\ Hb is stable, s/p 1 unit of trasnfusion, will consult GI today for possible EGD. Qualifiers: Abdominal location: left upper quadrant Qualified Code(s): R10.12 - Left upper quadrant pain - Time Spent With Patient 25 - 35 minutes - Subjective Interval history: Patient seen at the bedside, today complains of abdominal pain and reports that she has been vomiting and seen blood in the vomit also complains of passing blood in the stool. She did come in with drop in hemoglobin from her baseline and was transfused 1 unit yesterday at hemodialysis. She denies any chest pain, shortness of breath - Constitutional Vitals: Temp Pulse Resp BP Pulse Ox 97.6 F 88 18 170/95 98 07/02/16 10:59 07/02/16 10:59 07/02/16 10:59 07/02/16 12:15 07/02/16 10:59 General appearance: Present: A&O X 3, answers questions appropriately Exam: General appearance: Present: A&O X 3, answers questions appropriately - Head Head exam: Present: atraumatic, normocephalic - Neck Neck exam general surgery: Present: supple, trachea midline. Absent: lymphadenopathy - Respiratory Respiratory exam: Present: decreased breath sounds (At left base), CTAB. Absent : accessory muscle use, rales, rhonchi, wheezes - Cardiovascular Cardiovascular exam: Present: RRR, +S1, +S2. Absent: diastolic murmur, gallop, rubs, systolic murmur - GI/Abdominal GI/Abdominal exam: Present: normal bowel sounds, soft (obese and nontender), no peritoneal signs. Absent: distended, tenderness - Extremities Exam Extremities exam: Present: warm, radial pulses palpable and symetrical. Absent : calf tenderness, cyanotic, pedal edema Additional comments: s/p right BKA, stump clean; no significant pedal edema in left leg - Neurological Exam Neurological exam: Present: CN II-XII intact, oriented X3, no focal deficits. Absent: pronater drift, facial droop, speech deficit - Skin Skin exam: Present: dry, intact Internal Medicine: Result - Labs CBC & Chem 7: 07/02/16 08:00 07/01/16 01:27 Labs: Short CBC 07/02/16 Range/Units 08:00 WBC 7.0 (4.3-11.1) K/mcL Hgb 9.6 L D (11.5-15.4) g/dL Hct 29.4 L (35.3-44.9) % Plt Count 427 H (140-400) K/mcL Neutrophils # 4.8 (1.6-8.9) K/mcL - ABG Interpretation ABG results: PT/INR, D-dimer PT 12.2 Seconds (9.4-12.1) H 06/30/16 08:46 - Impressions Impressions Chest X-Ray 07/01/16 18:44 IMPRESSION: 1. Cardiomegaly with findings of mild congestive heart failure having slightly improved since the prior study. 2. Left greater than right pleural effusions with left base opacity that may reflect atelectasis. Superimposed pneumonia is conceivable if the patient has fever or leukocytosis. D/ / Diogenes Brannon MD / Diogenes Brannon MD Interpreting Provider: Diogenes Brannon MD Consult Discharge Plan - Plan Referrals: Colt Espinoza MD [Primary Care Provider] - 07/14/16 3:00 pm (please follow up as schedule...)
[2016-07-02] MEDS: *HR* HYDROcodone/Acet 10/325 mg TABLET PO PRN (20:56)
[2016-07-02] MEDS: Venlafaxine XR (24 HR) 37.5 MG CAP.ER.24H PO SCH (21:00)
[2016-07-03] MEDS: *HR* Promethazine 25 MG/ML VIAL IVP PRN ×4 (00:01→17:46)
[2016-07-03] MEDS ORDERED: *HR* Morphine 2 MG/ML SYRINGE IVP ONE (00:13)
[2016-07-03] MEDS ORDERED: Acetaminophen IV 1,000 MG/100 ML INFUS..BTL IVPB ONE (00:14)
[2016-07-03] MEDS: Metoclopramide 10 MG/10 ML UD.LIQ PO SCH ×6 (00:27→23:05)
[2016-07-03] MEDS: Insulin DETEMIR 100 UNIT/ML X5UNITS SQ SCH ×2 (00:28→22:57)
--- NOTE | 2016-07-03 08:30 | Nephrology Progress Note ---
Date of Encounter: 07/03/16 Time of Encounter: 08:20 - Assessment and Plan (1) ESRD (end stage renal disease) on dialysis Current Visit: Yes Status: Chronic No further chest pain, no SOB. BP improved. HD on Wednesday. Subjective Interval history: side lying, layin with head down. No respratory effort noted. denies CP. States is feeling better except has sore throat. Objective - Vital Signs Vital signs: Vital Signs Temp Pulse Resp BP Pulse Ox 07/03/16 07:20 97.5 F L 78 18 143/77 96 07/03/16 04:00 97.5 F L 80 18 152/72 99 07/03/16 00:00 97.7 F 82 17 152/76 99 07/02/16 20:00 97.6 F 86 17 160/89 99 07/02/16 16:13 97.7 F 85 18 163/93 99 07/02/16 12:15 170/95 07/02/16 10:59 97.6 F 88 18 198/110 98 Intake and Output 07/02/16 07/03/16 07/03/16 23:59 07:59 15:59 Intake Total 100 / 100 Balance 100 / 100 Intake: IV Fluids 100 / 100 Ofirmev 1,000 mg In 100 100 / 100 ml @ 400 mls/hr IVPB ONCE ONE Rx#:[id number] Other: Weight 96.7 kg Blood Glucose* 165 72 Patient Weight 07/03/16 23:59 Weight 96.7 kg - General Appearance General appearance: Present: well-developed, well-nourished, appears started age EENT: Present: mucous membranes moist Neck: Present: no JVD Respiratory: Present: clear Cardiology: Present: no edema, regular rate, regular rhythm Additional Comments: right BKA Gastrointestinal: Present: normoactive bowel sounds, no tenderness Integumentary: Present: warm and dry Neurologic: Present: alert and oriented x3 Psychiatric: Present: mood/affect appropriate, cooperative - Lab 07/02/16 08:00 07/01/16 01:27 Most recent lab results Calcium 8.3 mg/dL (8.6-10.8) L 07/01/16 01:27 Phosphorus 8.2 mg/dL (2.3-4.7) H 07/01/16 10:42 Magnesium 2.2 mg/dL (1.6-2.6) 07/01/16 01:27 Consult Discharge Plan - Plan Referrals: Colt Espinoza MD [Primary Care Provider] - 07/14/16 3:00 pm (please follow up as schedule...)
[2016-07-03] MEDS: Insulin LISPRO 300 UNITS/3 ML VIAL SQ SCH ×4 (08:39→22:24)
[2016-07-03] MEDS: cloNIDine HCl 0.1 MG TABLET PO SCH ×3 (09:12→22:57)
[2016-07-03] MEDS: Isosorbide MONOnitrate (24 HR) 60 MG TAB.ER.24H PO SCH (09:12)
[2016-07-03] MEDS: NIFEdipine XL (24 HR) 60 MG TAB.ER.24 PO SCH ×2 (09:13→22:58)
[2016-07-03] MEDS: Lisinopril 20 MG TABLET PO SCH ×2 (09:13→22:58)
[2016-07-03] MEDS ORDERED: 0.9 % Sodium Chloride 250 ML IV PRN ×2 (09:32→09:52)
[2016-07-03 09:41] LABS: Basophils % 0.5 %; Eosinophils # 0.4 K/mcL (0.0-0.6); Eosinophils % 4.1 %; Hematocrit 30.6 % (35.3-44.9); Hemoglobin 9.6 g/dL (11.5-15.4); Immature Granulocytes % 0.7 % (0-4); Lymphocytes # 1.1 K/mcL (0.6-4.6); Lymphocytes % 12.7 %; Mean Corpuscular HGB Conc 31.4 g/dL (31.6-35.5); Mean Corpuscular Hemoglobin 26.4 pg (28.0-33.3); Mean Corpuscular Volume 84.1 fL (83.0-100.0); Mean Platelet Volume 9.3 fL (9.4-12.4); Monocytes # 1.1 K/mcL (0.0-1.3); Monocytes % 12.3 %; Neutrophils # 6.1 K/mcL (1.6-8.9); Platelet Count 405 K/mcL (140-400); Red Blood Count 3.64 M/mcL (3.82-4.97); Red Cell Distribution Width 16.5 % (11.5-14.5); Segmented Neutrophils % 69.7 %
--- NOTE | 2016-07-03 10:35 | Anesthesia Evaluation PreOp ---
Date of Encounter: 07/03/16 Time of Encounter: 10:33 - Past History Planned Operation: Colonoscopy Cardiac History: HTN (Hypertensive urgency this admission 06/30/2016. Reportedly non-compliant with medications. Maintained on Metoprolol, Nifedipine, Lisinopril , Imdur, Clonidine), Hyperlipidemia (maintained on Amlodipine-Atorvastatin [ Caduet]), Other (CAD - maintained on ASA, Plavix. Anemia of Chronic dz) Pulmonary History: Smoker (1ppd x 20 yrs. "Quit" 2 months ago), Other (Recurent L-Pleural effusion) [employer] History: Other (Anxiety/Depression) Other Medical History: Renal (ESRD on hemodialysis. Non-compliance w/HD noted per chart), Diabetes Type I (maintained on Insulin), GERD (gastroparesis maintained on REglan, Protonix) Anesthesia History: Past Anesthesia (Hyster/Tubal Ligation, Adneoidectomy, R-BKA ) Alcohol Use: none Drug use: none Medications and Allergies Insulin DETEMIR [Levemir] 80 unit SQ HS [id number] 12/18/15 [Rx] Aspirin 81 mg PO DAILY #30 tab.chew 12/22/15 [Rx] HYDROcodone/Acet 10/325 mg [[place] 10-325 mg] 1 tab PO QID PRN 01/21/16 [History] Darbepoetin [Aranesp] 60 mcg SQ QWEEK syringe 01/23/16 [Rx] Ibuprofen [Motrin] 400 mg PO Q6HR PRN 10 Days 01/26/16 [Rx] Metoprolol [Lopressor] 25 mg PO BID 30 Days 01/26/16 [Rx] ClonazePAM [Klonopin] 2 mg PO BID PRN 04/20/16 [History] Metoclopramide [Reglan] 10 mg PO Q6HR PRN 04/20/16 [History] Pantoprazole Sodium [Protonix] 40 mg PO DAILY 04/20/16 [History] Venlafaxine XR (24 HR) [Effexor XR] 37.5 mg PO HS 04/20/16 [History] Insulin ASPART [NovoLOG] 2 - 10 unit SQ TIDWM 04/21/16 [History] Clopidogrel [Plavix] 75 mg PO DAILY tablet 04/23/16 [Rx] Isosorbide MONOnitrate (24 HR) [Imdur] 120 mg PO DAILY 30 Days 04/23/16 [Rx] Lisinopril [Zestril] 20 mg PO BID 30 Days 04/23/16 [Rx] Omeprazole [PriLOSEC] 20 mg PO BID capsule. 04/23/16 [Rx] Sennosides/Docusate Sodium [Senna Plus] 2 each PO BID PRN #0 tablet 04/23/16 [Rx ] Amlodipine/Atorvastatin [Caduet 5 mg-40 mg Tablet] 1 tab PO DAILY 06/30/16 [ History] CloNIDine [Catapres-Tts 1] 0.2 mg TD QWEEK 06/30/16 [History] NIFEdipine [Nifedical Xl] 60 mg PO DAILY 06/30/16 [History] Allergies Amoxicillin Allergy (Verified 04/21/16 08:16) Hives ondansetron [From Zofran (as hydrochloride)] Adverse Reaction (Verified 10:04) Vomiting Anesthesia Results - Labs 07/03/16 09:32 07/01/16 01:27
[2016-07-03] MEDS ORDERED: *HR* Midazolam HCl 5 MG/5 ML VIAL IVP ONE (11:16)
[2016-07-03] MEDS ORDERED: *HR* FentaNYL (PF) 100 MCG/2 ML VIAL ONE (11:17)
--- NOTE | 2016-07-03 11:28 | Gastroenterology Consult Note ---
<IreneChester abdullahi Noemí - Last Filed: 07/03/16 11:26> Date of Encounter: 07/03/16 Time of Encounter: 09:40 - Assessment and plan (1) Hematemesis Current Visit: Yes Status: Acute Assessment and plan: Pt with c/o nausea and vomiting, and states there was bright red blood in the vomitus. Plan for EGD today to r/o esophagitis, gastritis, duodenitis, PUD, MW tear, or AVM. Qualifiers: Nausea presence: with nausea Qualified Code(s): K92.0 - Hematemesis; R11.0 - Nausea (2) BRBPR (bright red blood per rectum) Current Visit: Yes Status: Acute Assessment and plan: Likely secondary to hemorrhoids. Recommend daily fiber supplement. Consider colonoscopy tomorrow. Will speak to Dr. Bonilla after EGD. If plan to proceed with colonoscopy: Clear liquid diet today, no red or purple. NPO at midnight. If unable tolerate NuLytely please use MiraLAX prep. If not clear by 6 AM, give 2 tap water enemas. (3) Anemia Current Visit: Yes Status: Acute Assessment and plan: Hgb 6.8 on admission and 9.6 this AM. Continue to monitor CBC and transfuse PRBC as needed. Qualifiers: Anemia type: unspecified type Qualified Code(s): D64.9 - Anemia, unspecified (4) Abdominal pain Current Visit: No Status: Acute Assessment and plan: Plan for EGD today. Continue PPI. Qualifiers: Abdominal location: left upper quadrant Qualified Code(s): R10.12 - Left upper quadrant pain (5) ESRD (end stage renal disease) on dialysis Current Visit: Yes Status: Chronic Assessment and plan: Management per nephrology (6) Constipation Current Visit: Yes Status: Acute Assessment and plan: Recommend daily fiber supplement and use MiraLAX up to twice a day. Qualifiers: Constipation type: unspecified constipation type Qualified Code(s): K59.00 - Constipation, unspecified - Time Spent With Patient Total time spent is greater than 50% in coordination of care (as documented) at patient's floor/unit and/or counseling patient: GI History of Present Illness - Data of Consult Patient: new to practice Consult date: 07/03/16 Requesting Physician: Mare Jensen - Consult Narrative Reason for consult: anemia, blood in vomit and stool History of present illness: Ms. Benavidez is a 35 year old female with PMHx of CAD, DM, ESRD on dialysis, HTN who presented with SOB and chest tightness. She uses home O2 at 2-3 L/min. She has history of being noncompliant with her medications and hemodialysis sessions. She has a history of drug-seeking behavior. She presented with an Hgb of 6.8 and has received 3 units of PRBC. Hgb yesterday AM was 9.6. Yesterday she began to complain of abdominal pain, bloody vomitus, and blood in her stool. She states she has 1 BM per week, and is using Miralax 1-2 times per week. She states when she passes stool, it is very large and will notice occasional BRBPR. Procedures: None NSAIDs: Ibuprofen, ASA Anticoagulation: Plavix Past Med Surg Social Fam HX - Past Medical History Medical history: coronary artery disease, diabetes, dialysis, hypertension, renal disease Psychiatric history: anxiety, depression - Past Surgical History Surgical History: hysterectomy, other - Social History Smoking Status: Never smoker Smokeless Tobacco Status: No Alcohol use: none Drug use: none - Family History Mother Adopted: No Family Member Ethnicity: Non- Living Status: Still Living Hx Family Cardiac Disorders: Yes (Father with coronary artery disease) Hx Family Respiratory Disorders: No Hx Family Cancer: Yes (Breast) Hx Family GI Disorders: No Hx Family Endocrine Disorder: Yes (Mother with dm) Hx Family Neuromuscular Disorders: No Hx Family Neurologic Disorders: No Hx Family HEENT Disorders: No Hx Family Autoimmune Disorders: No - Gastrointestinal Gastrointestinal: Present: as per HPI - Constitutional Constitutional: as per HPI - EENT Eyes: as per HPI Ears: Present: as per HPI Nose, mouth and throat: Present: as per HPI - Cardiovascular Cardiovascular ROS: Present: as per HPI - Respiratory Respiratory IM: Present: as per HPI - Genitourinary Genitourinary: Absent: change in color, Urinary frequency - Neurological ROS Neurological GI: Present: as per HPI - Hematologic/Lymphatic Hematologic/Lymphatic pediatric: Present: as per HPI - Musculoskeletal Musculoskeletal ROS GI: Present: as per HPI - Integumentary Integumentary GI: Present: as per HPI - Psychiatric ROS Psychiatric GI: Present: as per HPI - Endocrine Endocrine IM: Present: as per HPI - Constitutional Vitals: Temp Pulse Resp BP Pulse Ox 98.3 F 74 16 153/84 96 07/03/16 11:01 07/03/16 11:25 07/03/16 11:25 07/03/16 11:25 07/03/16 11:25 General appearance: Present: cooperative, A&O X 3, no acute distress, answers questions appropriately - Head Head exam: Present: atraumatic, normocephalic - Eye Eye exam: Present: normal appearance, sclera anicteric - ENT ENT exam: Present: mucous membranes moist - Neck Neck exam general surgery: Present: normal inspection, trachea midline - Respiratory Respiratory exam: Present: CTAB. Absent: rales, rhonchi - Cardiovascular Cardiovascular exam: Present: RRR, +S1, +S2 - GI/Abdominal GI/Abdominal exam: Present: soft, no peritoneal signs. Absent: distended, firm , guarding, tenderness Additional comments: obese - Rectal Rectal exam: Present: deferred - Extremities Exam Extremities exam: Present: warm Additional comments: Right BKA - Neurological Exam Neurological exam: Present: no focal deficits - Psychiatric Psychiatric exam: Present: normal affect, normal mood - Skin Skin exam: Present: dry, intact, normal color, warm Results - Labs CBC & Chem 7: 07/03/16 09:32 07/01/16 01:27 Labs: Last Result Calcium 8.3 mg/dL (8.6-10.8) L 07/01/16 01:27 Iron 31 mcg/dL (50-170) L 07/01/16 10:42 % Saturation 13 % (15-50) L 07/01/16 10:42 Transferrin 171 mg/dL (180-382) L 07/01/16 10:42 Ferritin 884 ng/ml (5-204) H 07/01/16 10:42 Troponin I 0.07 ng/mL (0-0.03) H* 07/01/16 01:27 Vitamin B12 481 pg/mL (213-816) 07/01/16 10:42 Folate 4.8 ng/mL (7.0-31.4) L 07/01/16 10:42 Entire Visit Hgb 9.6 g/dL (11.5-15.4) L 07/03/16 09:32 Hct 30.6 % (35.3-44.9) L 07/03/16 09:32 PT 12.2 Seconds (9.4-12.1) H 06/30/16 08:46 Ferritin 884 ng/ml (5-204) H 07/01/16 10:42 Total Bilirubin 0.4 mg/dL (0.2-1.2) 06/30/16 08:46 AST 10 Units/L (5-34) 06/30/16 08:46 ALT 7 Units/L (0-55) 06/30/16 08:46 Amylase 31 Units/L (25-125) 06/30/16 08:46 Lipase 26 Units/L (8-78) 06/30/16 08:46 Folate 4.8 ng/mL (7.0-31.4) L 07/01/16 10:42 - ABG ABG results: PT/INR, D-dimer PT 12.2 Seconds (9.4-12.1) H 06/30/16 08:46 Consult Discharge Plan - Plan Referrals: Colt Espinoza MD [Primary Care Provider] - 07/14/16 3:00 pm (please follow up as schedule...) <Mark Bonilla - Last Filed: 07/03/16 12:09> Time of Encounter: 15:00 - Time Spent With Patient Total time spent is greater than 50% in coordination of care (as documented) at patient's floor/unit and/or counseling patient: GI History of Present Illness - Data of Consult Requesting Physician: Mare Jensen - Consult Narrative History of present illness: Ms. Benavidez is a 35 year old female - Constitutional Vitals: Temp Pulse Resp BP Pulse Ox 98.6 F 83 16 162/91 95 07/03/16 12:05 07/03/16 12:05 07/03/16 12:05 07/03/16 12:05 07/03/16 12:05 Results - Labs CBC & Chem 7: 07/03/16 09:32 07/01/16 01:27 Labs: Last Result Calcium 8.3 mg/dL (8.6-10.8) L 07/01/16 01:27 Iron 31 mcg/dL (50-170) L 07/01/16 10:42 % Saturation 13 % (15-50) L 07/01/16 10:42 Transferrin 171 mg/dL (180-382) L 07/01/16 10:42 Ferritin 884 ng/ml (5-204) H 07/01/16 10:42 Troponin I 0.07 ng/mL (0-0.03) H* 07/01/16 01:27 Vitamin B12 481 pg/mL (213-816) 07/01/16 10:42 Folate 4.8 ng/mL (7.0-31.4) L 07/01/16 10:42 Entire Visit Hgb 9.6 g/dL (11.5-15.4) L 07/03/16 09:32 Hct 30.6 % (35.3-44.9) L 07/03/16 09:32 PT 12.2 Seconds (9.4-12.1) H 06/30/16 08:46 Ferritin 884 ng/ml (5-204) H 07/01/16 10:42 Total Bilirubin 0.4 mg/dL (0.2-1.2) 06/30/16 08:46 AST 10 Units/L (5-34) 06/30/16 08:46 ALT 7 Units/L (0-55) 06/30/16 08:46 Amylase 31 Units/L (25-125) 06/30/16 08:46 Lipase 26 Units/L (8-78) 06/30/16 08:46 Folate 4.8 ng/mL (7.0-31.4) L 07/01/16 10:42 - ABG ABG results: PT/INR, D-dimer PT 12.2 Seconds (9.4-12.1) H 06/30/16 08:46 - Attending Attestation I examined this patient and my medical decision-making was reviewed with the RETAIL SHIFT SUPERVISOR/PA/Advanced Practice Nurse/Resident Physician. I agree with the documented findings, disposition and treatment plan as described except to the extent set forth below. Patient with end-stage renal disease on hemodialysis. Now with anemia with melena/red blood per rectum. Plan is for EGD today and if negative then will do colonoscopy tomorrow
[2016-07-03] MEDS: *HR* Midazolam HCl 5 MG/5 ML VIAL IVP PRN ×2 (11:31→11:36)
[2016-07-03] MEDS: *HR* FentaNYL (PF) 100 MCG/2 ML VIAL IVP PRN ×2 (11:31→11:36)
[2016-07-03] MEDS ORDERED: Simethicone 40 MG/0.6 ML MLS IR ONE (11:33)
[2016-07-03] MEDS ORDERED: Tetracaine/Benzocaine/Butamben 200MG/SPRAY (100SPY/BOT) MM ONE (11:33)
[2016-07-03] MEDS ORDERED: *HR* Promethazine 25 MG/ML VIAL ONE (11:38)
[2016-07-03] MEDS ORDERED: 0.9 % Sodium Chloride 2,000 ML ONE (12:06)
[2016-07-03] MEDS ORDERED: SODIUM CHLORIDE/NAHCO3/KCL/PEG 4,000 ML SOLN.RECON PO ONE ×2 (12:13)
[2016-07-03] MEDS ORDERED: Fluconazole 100 MG/50 ML 100 MG/50 ML BAG IVPB SCH (12:30)
[2016-07-03] MEDS: Aspirin 81 MG TAB.CHEW PO SCH (12:37)
[2016-07-03] MEDS ORDERED: Fluconazole 100 MG TABLET PO SCH (16:07)
--- NOTE | 2016-07-03 17:18 | Internal Med Progress Note ---
Date of Encounter: 07/03/16 Time of Encounter: 11:00 - Assessment and plan (1) Esophageal candidiasis Current Visit: Yes Status: Acute Assessment and plan: start fluconazole (2) Anemia Current Visit: Yes Status: Chronic Qualifiers: Anemia type: other cause Other causes of anemia: chronic disease, kidney Qualified Code(s): N18.9 - Chronic kidney disease, unspecified; D63.1 - Anemia in chronic kidney disease (3) Anemia Current Visit: No Status: Chronic Assessment and plan: at base line nephrology to determine if pt needs colony stimulating factors Qualifiers: Anemia type: unspecified type Qualified Code(s): D64.9 - Anemia, unspecified (4) Pleural effusion Current Visit: Yes Status: Acute Assessment and plan: possible due to volume overload wiil repeat chest X ray in AM - Time Spent With Patient 25 - 35 minutes - Subjective Interval history: pt denies hemathemesis or melenas, had EGD today results consistant iwth esophageal candidiasis - Constitutional Vitals: Temp Pulse Resp BP Pulse Ox 97.4 F L 81 16 159/89 97 07/03/16 16:20 07/03/16 12:14 07/03/16 16:20 07/03/16 16:20 07/03/16 12:14 General appearance: Present: A&O X 3, answers questions appropriately - Respiratory Respiratory exam: Present: decreased breath sounds - Cardiovascular Cardiovascular exam: Present: RRR, +S1, +S2 - GI/Abdominal GI/Abdominal exam: Present: normal bowel sounds, soft - Extremities Exam Additional comments: bilateral feet amputation Internal Medicine: Result - Labs CBC & Chem 7: 07/03/16 09:32 07/01/16 01:27 Labs: Short CBC 07/03/16 Range/Units 09:32 WBC 8.8 (4.3-11.1) K/mcL Hgb 9.6 L (11.5-15.4) g/dL Hct 30.6 L (35.3-44.9) % Plt Count 405 H (140-400) K/mcL Neutrophils # 6.1 (1.6-8.9) K/mcL - ABG Interpretation ABG results: PT/INR, D-dimer PT 12.2 Seconds (9.4-12.1) H 06/30/16 08:46 Consult Discharge Plan - Plan Referrals: Colt Espinoza MD [Primary Care Provider] - 07/14/16 3:00 pm (please follow up as schedule...)
[2016-07-03] MEDS: Venlafaxine XR (24 HR) 37.5 MG CAP.ER.24H PO SCH (22:57)
[2016-07-03] MEDS: *HR* HYDROcodone/Acet 10/325 mg TABLET PO PRN (23:06)
[2016-07-04] MEDS: *HR* Promethazine 25 MG/ML VIAL IVP PRN ×2 (01:27→09:47)
[2016-07-04] MEDS ORDERED: Polyethylene Glycol 3350 255 GM POWDER PO ONE (02:34)
[2016-07-04] MEDS: Metoclopramide 10 MG/10 ML UD.LIQ PO SCH ×2 (04:16→11:47)
--- NOTE | 2016-07-04 08:02 | Nephrology Progress Note ---
Date of Encounter: 07/04/16 Time of Encounter: 08:00 - Assessment and Plan (1) ESRD (end stage renal disease) on dialysis Current Visit: Yes Status: Chronic Patient is stable from a dialysis perspective. Her blood pressures under much better control. She has been diagnosed with esophageal candidiasis and she is on Diflucan. She likely also has a component of gastroparesis. She is on Reglan. She is scheduled to undergo a colonoscopy later today. She will continue to receive dialysis every Wednesday and Wednesday. (2) Anemia Current Visit: Yes Status: Chronic Qualifiers: Anemia type: other cause Other causes of anemia: chronic disease, kidney Qualified Code(s): N18.9 - Chronic kidney disease, unspecified; D63.1 - Anemia in chronic kidney disease (3) Chest pain Current Visit: Yes Status: Acute Qualifiers: Chest pain type: precordial chest pain Qualified Code(s): R07.2 - Precordial pain (4) Hypertensive urgency Current Visit: Yes Status: Acute (5) DM type 1 (diabetes mellitus, type 1) Current Visit: Yes Status: Chronic Qualifiers: Diabetes mellitus complication status: with kidney complications Diabetes mellitus complication detail: with chronic kidney disease Chronic kidney disease stage: on chronic dialysis Qualified Code(s): E10.22 - Type 1 diabetes mellitus with diabetic chronic kidney disease; N18.6 - End stage renal disease; Z99.2 - Dependence on renal dialysis Subjective Interval history: Patient is complaining of some nausea this morning. EGD results are noted. She has been started on Diflucan for fungal esophagitis. She is undergoing a prep for a colonoscopy later today. Her blood pressure is better controlled. She had dialysis yesterday. Objective - Vital Signs Vital signs: Vital Signs Temp Pulse Resp BP Pulse Ox 07/04/16 07:55 98.2 F 82 16 139/78 95 07/04/16 04:38 98.2 F 80 18 143/78 98 07/03/16 23:56 98.2 F 76 18 129/73 96 07/03/16 20:05 98.2 F 84 18 137/78 96 07/03/16 17:31 97.4 F L 94 16 168/85 97 07/03/16 16:20 97.4 F L 16 150/87 07/03/16 16:05 162/80 07/03/16 15:50 164/84 07/03/16 15:35 147/87 07/03/16 15:20 137/83 07/03/16 15:05 130/81 07/03/16 14:50 135/83 07/03/16 14:35 132/73 07/03/16 14:20 141/76 07/03/16 14:05 136/85 07/03/16 13:50 140/84 07/03/16 13:35 155/84 07/03/16 13:20 148/90 07/03/16 13:05 162/94 07/03/16 12:50 97.4 F L 18 152/92 07/03/16 12:14 97.4 F L 81 18 147/85 97 07/03/16 12:05 98.6 F 83 16 162/91 95 07/03/16 11:45 90 16 160/90 95 07/03/16 11:40 88 16 155/87 96 07/03/16 11:35 980 16 166/87 94 L 07/03/16 11:25 74 16 153/84 96 07/03/16 11:01 98.3 F 77 16 161/86 96 Intake and Output 07/03/16 07/04/16 07/04/16 23:59 07:59 15:59 Intake Total 650 / 650 Output Total 3600 / 3600 Balance -2950 / -2950 Intake: Oral 650 / 650 Output: Urine 0 / 0 Total Dialysis Output 3600 / 3600 Other: Weight 100.6 kg Blood Glucose* 175 173 Hemodialysis Net Fluid 3600 Removed (mL) Patient Weight 07/04/16 23:59 Weight 100.6 kg - General Appearance Exam: Patient is alert and oriented. She is in no acute distress. Lungs clear to auscultation. Heart regular rate and rhythm. Abdomen is benign. There is no lower extremity swelling. 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 There is a tunnel dialysis catheter in the right chest. - Lab 07/03/16 09:32 07/01/16 01:27 Most recent lab results Calcium 8.3 mg/dL (8.6-10.8) L 07/01/16 01:27 Phosphorus 8.2 mg/dL (2.3-4.7) H 07/01/16 10:42 Magnesium 2.2 mg/dL (1.6-2.6) 07/01/16 01:27 Consult Discharge Plan - Plan Referrals: Colt Espinoza MD [Primary Care Provider] - 07/14/16 3:00 pm (please follow up as schedule...)
[2016-07-04] MEDS: Insulin LISPRO 300 UNITS/3 ML VIAL SQ SCH ×2 (08:20→11:47)
[2016-07-04] MEDS: cloNIDine HCl 0.1 MG TABLET PO SCH (08:25)
[2016-07-04] MEDS: NIFEdipine XL (24 HR) 60 MG TAB.ER.24 PO SCH (08:25)
[2016-07-04] MEDS: Lisinopril 20 MG TABLET PO SCH (08:25)
[2016-07-04] MEDS: Isosorbide MONOnitrate (24 HR) 60 MG TAB.ER.24H PO SCH (08:25)
[2016-07-04] MEDS: Aspirin 81 MG TAB.CHEW PO SCH (08:25)
[2016-07-04 11:42] VITALS: BP 157/80
--- NOTE | 2016-07-04 13:21 | Discharge Summary ---
Date of Encounter: 07/04/16 Time of Encounter: 11:00 - Discharge Diagnosis (1) Esophageal candidiasis Priority: Primary Status: Acute (2) Anemia Priority: Secondary Status: Chronic Qualifiers: Anemia type: other cause Other causes of anemia: chronic disease, kidney Qualified Code(s): N18.9 - Chronic kidney disease, unspecified; D63.1 - Anemia in chronic kidney disease (3) Anemia Priority: Primary Status: Chronic Qualifiers: Anemia type: unspecified type Qualified Code(s): D64.9 - Anemia, unspecified - Discharge Medications Prescriptions: CloNIDine HCl 0.2 mg PO TID #90 tablet Fluconazole [Diflucan] 100 mg PO 1600 #7 tablet Home Medications: Insulin DETEMIR [Levemir] 80 unit SQ HS [id number] 12/18/15 [Rx] Aspirin 81 mg PO DAILY #30 tab.chew 12/22/15 [Rx] HYDROcodone/Acet 10/325 mg [[place] 10-325 mg] 1 tab PO QID PRN 01/21/16 [History] Darbepoetin [Aranesp] 60 mcg SQ QWEEK syringe 01/23/16 [Rx] Metoprolol [Lopressor] 25 mg PO BID 30 Days 01/26/16 [Rx] ClonazePAM [Klonopin] 2 mg PO BID PRN 04/20/16 [History] Metoclopramide [Reglan] 10 mg PO Q6HR PRN 04/20/16 [History] Pantoprazole Sodium [Protonix] 40 mg PO DAILY 04/20/16 [History] Venlafaxine XR (24 HR) [Effexor XR] 37.5 mg PO HS 04/20/16 [History] Insulin ASPART [NovoLOG] 2 - 10 unit SQ TIDWM 04/21/16 [History] Clopidogrel [Plavix] 75 mg PO DAILY tablet 04/23/16 [Rx] Lisinopril [Zestril] 20 mg PO BID 30 Days 04/23/16 [Rx] Omeprazole [PriLOSEC] 20 mg PO BID capsule. 04/23/16 [Rx] Sennosides/Docusate Sodium [Senna Plus] 2 each PO BID PRN #0 tablet 04/23/16 [Rx ] Amlodipine/Atorvastatin [Caduet 5 mg-40 mg Tablet] 1 tab PO DAILY 06/30/16 [ History] NIFEdipine [Nifedical Xl] 60 mg PO DAILY 06/30/16 [History] CloNIDine HCl 0.2 mg PO TID #90 tablet 07/04/16 [Rx] Fluconazole [Diflucan] 100 mg PO 1600 #7 tablet 07/04/16 [Rx] Isosorbide MONOnitrate (24 HR) [Imdur] 120 mg PO DAILY tab.er.24h 07/04/16 [Rx] Allergies/Adverse Reactions: Allergies Amoxicillin Allergy (Verified 04/21/16 08:16) Hives ondansetron [From Zofran (as hydrochloride)] Adverse Reaction (Verified 10:04) Vomiting Date of admission: 06/30/16 10:57 Primary care physician: Colt Espinoza MD Consults: 06/30/16 11:11 Consult to Nephrology [CONS] Routine Consulting Provider: [facility] Reason for Consult: ESRD on HD, uncontrolled HTN Call Completed: Yes 07/01/16 08:30 Consult to Dialysis [CONS] ONCE 07/02/16 12:11 Consult to Gastroenterology [CONS] Routine Consulting Provider: [facility] [place] Reason for Consult: Hgb drop. Pt states blood in vomit and stool. Dr Urias to complete call Call Completed: No 07/03/16 09:45 Consult to Dialysis [CONS] ONCE 07/03/16 10:00 Consult to Dialysis [CONS] ONCE 07/04/16 01:45 Consult to [facility] [CONS] Stat Reason for SW Consult: D/C planning, unsafe environment (see note) Discharging clinician: Victoria García Anticipated date of discharge: 07/04/16 - Patient Status Disposition: Home, Self-Care Condition: Fair Overall status at discharge: patient is progressing back to baseline - Discharge Instructions Instructions: Anemia (GEN) Follow Up With: Colt Espinoza MD [Primary Care Provider] - 07/14/16 3:00 pm (please follow up as schedule...) Mark Bonilla MD [Partnered Physician] - Forms: ED Satisfaction Letter - Diet and Activity Activity: increase activity as tolerated Diet: diabetic diet, low fat, low cholesterol Hospital course: Ms. Benavidez is a 35 year old female WITH PMH SIGNIFICANT FOR DM TYPE II AND ESRD , PRESENTED WITH ANEMIA HB WAS 6.8 HAD EGD THAT SHOWED ESOPHAGEAL Candidiasis no overt signs of bleeding , pt was instructed to take fluconazole for 7 days, was recommended to have colonoscopy as well but pt could not take preparation, she will follow up iwth Dr Bonilla in one week to schedule procedure as an outpatient - Time Spent with Patient Total time spent providing and/or coordinating discharge services: Greater than 30 minutes - Constitutional Vitals: Temp Pulse Resp BP Pulse Ox 98.2 F 78 16 157/80 97 07/04/16 11:00 07/04/16 11:00 07/04/16 11:00 07/04/16 11:00 07/04/16 11:00 General appearance: Present: A&O X 3, answers questions appropriately - Respiratory Respiratory exam: Present: decreased breath sounds - Cardiovascular Cardiovascular exam: Present: RRR, +S1, +S2 - GI/Abdominal GI/Abdominal exam: Present: rigid, soft - Extremities Exam Additional comments: bilateral feet amputation
--- NOTE | 2016-07-04 13:47 | Physician Discharge Referral ---
Home Health/Hosp Referral Info Transfer to: Home Health Attending Provider: - Diagnosis (1) Esophageal candidiasis Priority: Secondary Status: Acute (2) Anemia Priority: Primary Status: Chronic (3) Anemia Status: Chronic - Respiratory Orders Smoking Cessation: Smoking cessation has been advised. For more information, call the [place] Tobacco Quit Line at 0-676-MRVT-NOW. - Diet/Nutrition Diet/Nutrition Orders: Renal - Activity Activity Orders: Up ad arvind - Services Needed Following services are medically necessary services: Home Health Aide - Transfer Medications Prescriptions: CloNIDine HCl 0.2 mg PO TID #90 tablet Fluconazole [Diflucan] 100 mg PO 1600 #7 tablet Home Medications: Insulin DETEMIR [Levemir] 80 unit SQ HS [id number] 12/18/15 [Rx] Aspirin 81 mg PO DAILY #30 tab.chew 12/22/15 [Rx] HYDROcodone/Acet 10/325 mg [[place] 10-325 mg] 1 tab PO QID PRN 01/21/16 [History] Darbepoetin [Aranesp] 60 mcg SQ QWEEK syringe 01/23/16 [Rx] Metoprolol [Lopressor] 25 mg PO BID 30 Days 01/26/16 [Rx] ClonazePAM [Klonopin] 2 mg PO BID PRN 04/20/16 [History] Metoclopramide [Reglan] 10 mg PO Q6HR PRN 04/20/16 [History] Pantoprazole Sodium [Protonix] 40 mg PO DAILY 04/20/16 [History] Venlafaxine XR (24 HR) [Effexor XR] 37.5 mg PO HS 04/20/16 [History] Insulin ASPART [NovoLOG] 2 - 10 unit SQ TIDWM 04/21/16 [History] Clopidogrel [Plavix] 75 mg PO DAILY tablet 04/23/16 [Rx] Lisinopril [Zestril] 20 mg PO BID 30 Days 04/23/16 [Rx] Omeprazole [PriLOSEC] 20 mg PO BID capsule. 04/23/16 [Rx] Sennosides/Docusate Sodium [Senna Plus] 2 each PO BID PRN #0 tablet 04/23/16 [Rx ] Amlodipine/Atorvastatin [Caduet 5 mg-40 mg Tablet] 1 tab PO DAILY 06/30/16 [ History] NIFEdipine [Nifedical Xl] 60 mg PO DAILY 06/30/16 [History] CloNIDine HCl 0.2 mg PO TID #90 tablet 07/04/16 [Rx] Fluconazole [Diflucan] 100 mg PO 1600 #7 tablet 07/04/16 [Rx] Isosorbide MONOnitrate (24 HR) [Imdur] 120 mg PO DAILY tab.er.24h 07/04/16 [Rx] Allergies/Adverse Reactions: Allergies Amoxicillin Allergy (Verified 04/21/16 08:16) Hives ondansetron [From Zofran (as hydrochloride)] Adverse Reaction (Verified 10:04) Vomiting Certification: Further, I certify that my clinical findings support that this patient is homebound (i.e. absences from home require considerable and taxing effort and are for medical reasons or bahai services or infrequently or short duration when for other reasons) because: Homebound Reason: Patient requires assistance of a person or device to safely leave home, Leaving home requires considerable and taxing effort due to condition Attestation: My signature below is to certify that this patient is under my care and that I, or nurse practitioner, or a physician's quality control assistant working with me, has a face-to -face encounter with this patient.
[2016-07-04] MEDS ORDERED: Fluconazole 100 MG TABLET PO SCH (16:00)
== END 2016-07-04 15:15 | disposition home or self-care (01) | DRG 304 ==
LOC: EMEROO 07:32 → 2ANU 07:32
PROVIDERS: ADMIT Internal Medicine; ATTEND Internal Medicine Endocrinology, Diabetes & Metabolism

== ENCOUNTER 2016-08-12 11:23 | Inpatient (IN) ==
--- NOTE | 2016-08-12 11:40 | Emergency Department Note ---
Disposition Clinical Impression: Hypertensive emergency, Chest pain, rule out acute myocardial infarction Disposition: Admitted As Inpatient Condition: Fair General Adult HPI - General Chief complaint: ED Chest Pain Stated complaint: "chest pain before dialysis" Time Seen by Provider: 08/12/16 11:28 Source: EMS Limitations: no limitations - History of Present Illness Pain Scale: 9 - Related Data Home Medications Medication Instructions Recorded Confirmed HYDROcodone/Acet 10/325 mg [[address] 1 tab PO QID PRN 01/21/16 08/12/16 10-325 mg] ClonazePAM [Klonopin] 2 mg PO BID PRN 04/20/16 08/12/16 Metoclopramide [Reglan] 10 mg PO Q6HR PRN 04/20/16 08/12/16 Pantoprazole Sodium [Protonix] 40 mg PO DAILY 04/20/16 08/12/16 Venlafaxine XR (24 HR) [Effexor XR] 37.5 mg PO HS 04/20/16 08/12/16 Insulin ASPART [NovoLOG] 2 - 10 unit SQ TIDWM 04/21/16 08/12/16 Amlodipine/Atorvastatin [Caduet 5 1 tab PO DAILY 06/30/16 08/12/16 mg-40 mg Tablet] NIFEdipine [Nifedical Xl] 60 mg PO DAILY 06/30/16 08/12/16 Amlodipine [Norvasc] 5 mg PO DAILY 08/12/16 08/12/16 Atorvastatin [Lipitor] 40 mg PO DAILY 08/12/16 08/12/16 Carvedilol [Carvedilol] 12.5 mg PO BID 08/12/16 08/12/16 CloNIDine [Clonidine] 0.3 mg TP Q5D 08/12/16 08/12/16 OxyCODONE Immed Rel [Roxicodone 5 5 mg PO Q4-6H PRN 08/12/16 08/12/16 MG] Prasugrel [Effient] 10 mg PO DAILY 08/12/16 08/12/16 Previous Rx's Medication Instructions Recorded Insulin DETEMIR [Levemir] 80 unit SQ HS [id number] 12/18/15 Aspirin 81 mg PO DAILY #30 tab.chew 12/22/15 Darbepoetin [Aranesp] 60 mcg SQ QWEEK syringe 01/23/16 Metoprolol [Lopressor] 25 mg PO BID 30 Days 01/26/16 Clopidogrel [Plavix] 75 mg PO DAILY tablet 04/23/16 Lisinopril [Zestril] 20 mg PO BID 30 Days 04/23/16 Omeprazole [PriLOSEC] 20 mg PO BID capsule. 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 - Social History Smoking Status: Never smoker Smokeless Tobacco Status: No Alcohol use: Reports: none Drug use: Reports: none Physical Exam - General Limitations: no limitations General appearance: alert Course Vital Signs Temperature 97.7 F 08/12/16 11:27 Pulse Rate 90 08/12/16 11:27 Respiratory Rate 16 08/12/16 11:27 Blood Pressure 235/129 08/12/16 11:27 O2 Sat by Pulse Oximetry 100 08/12/16 11:27 Temperature 98.1 F 08/12/16 20:53 Pulse Rate 102 08/12/16 20:53 Respiratory Rate 16 08/12/16 20:53 Blood Pressure 192/108 08/12/16 20:53 O2 Sat by Pulse Oximetry 94 L 08/12/16 20:53 Oxygen Delivery Oxygen Delivery Nasal Cannula Medical Decision Making - Lab Data Result diagrams: 08/12/16 13:45 08/12/16 12:20 Lab Results 08/12/16 08/12/16 08/12/16 Range/Units 12:20 12:20 13:45 WBC 5.5 (4.3-11.1) K/mcL RBC 3.12 L (3.82-4.97) M/mcL Hgb 8.2 L (11.5-15.4) g/dL Hct 27.3 L (35.3-44.9) % MCV 87.5 (83.0-100.0) fL MCH 26.3 L (28.0-33.3) pg MCHC 30.0 L (31.6-35.5) g/dL RDW 16.7 H (11.5-14.5) % Plt Count 191 (140-400) K/mcL MPV 10.3 (9.4-12.4) fL Immature Gran % 0.5 (0-4) % Seg Neutrophils % 70.3 % Lymphocytes % 17.6 % Monocytes % 6.6 % Eosinophils % 4.6 % Basophils % 0.4 % Neutrophils # 3.9 (1.6-8.9) K/mcL Lymphocytes # 1.0 (0.6-4.6) K/mcL Monocytes # 0.4 (0.0-1.3) K/mcL Eosinophils # 0.3 (0.0-0.6) K/mcL Basophils # 0.0 (0.0-0.2) K/mcL Immature Plt Fraction 3.9 (1.1-6.1) % Sodium 137 (136-145) mEq/L Potassium 5.4 H (3.5-4.5) mEq/L Chloride 99 (98-109) mEq/L Carbon Dioxide 22 (19-29) mEq/L BUN 57 H (7-20) mg/dL Creatinine 8.37 H (0.57-1.11) mg/dL Est GFR ( Amer) 7 L (> 60) Est GFR (Non-Af Amer) 5 L (> 60) BUN/Creatinine Ratio 7 (6-26) Glucose 196 H (70-99) mg/dL Calculated Osmolality 305 H (280-300) Calcium 9.6 (8.6-10.8) mg/dL Troponin I 0.13 H* (0-0.03) ng/mL Attestation Statement - Attestation Attestation: I examined this patient and my medical decision-making was reviewed with the KEY ATTENDANT/PA/Advanced Practice Nurse/Resident Physician. I agree with the documented findings, disposition and treatment plan as described except to the extent set forth below. Face to face time provided Patient is a dialysis dependent diabetic who presents with chest pain. She appears older than stated age on exam. EKG reviewed by me. Plan of care and management discussed by me with the resident physician
[2016-08-12] MEDS ORDERED: cloNIDine HCl 0.1 MG TABLET PO ONE (11:53)
[2016-08-12] MEDS ORDERED: Lisinopril 20 MG TABLET PO STA (11:53)
[2016-08-12] MEDS ORDERED: Metoprolol 100 MG TABLET PO STA (11:54)
[2016-08-12 12:44] LABS: Calcium 9.6 mg/dL (8.6-10.8); Potassium 5.4 mEq/L (3.5-4.5)
--- NOTE | 2016-08-12 12:46 | Emergency Department Note ---
Disposition Clinical Impression: Hypertensive emergency, Chest pain, rule out acute myocardial infarction Disposition: Admitted As Inpatient Condition: Fair Referrals: NO,PCP [Non-Partnered Physician] - Forms: ED Satisfaction Letter Chest Pain HPI - General Chief Complaint: ED Chest Pain Stated Complaint: "chest pain before dialysis" Time Seen by Provider: 08/12/16 11:28 Source: EMS Limitations: no limitations Vital Signs Reviewed: Yes Nursing Notes Reviewed: Yes - History of Present Illness HPI Narrative: 36-year-old female with a history of insulin-dependent diabetes, end-stage renal disease on dialysis, coronary artery disease with multiple stents who presents to the emergency department with an episode of chest pain today. When she woke up she had crampy chest pain that started in the epigastrium wrapped around the chest and radiated into her neck and axilla bilaterally. This lasted for 5-10 minutes. She has had heart stents placed in the past and the last time a car catheterization was performed was in April. Currently she feels nauseated with some vomiting. She has chronic nausea and vomiting and has been vomiting quite a bit for 3 weeks. She states she feels dehydrated and cannot keep anything down. She has not been able to keep down any of her blood pressure medications. Severity scale (1-10): 9 - Related Data Home Medications Medication Instructions Recorded Confirmed HYDROcodone/Acet 10/325 mg [[place] 1 tab PO QID PRN 01/21/16 06/30/16 10-325 mg] ClonazePAM [Klonopin] 2 mg PO BID PRN 04/20/16 06/30/16 Metoclopramide [Reglan] 10 mg PO Q6HR PRN 04/20/16 06/30/16 Pantoprazole Sodium [Protonix] 40 mg PO DAILY 04/20/16 06/30/16 Venlafaxine XR (24 HR) [Effexor XR] 37.5 mg PO HS 04/20/16 06/30/16 Insulin ASPART [NovoLOG] 2 - 10 unit SQ TIDWM 04/21/16 06/30/16 Amlodipine/Atorvastatin [Caduet 5 1 tab PO DAILY 06/30/16 06/30/16 mg-40 mg Tablet] NIFEdipine [Nifedical Xl] 60 mg PO DAILY 06/30/16 06/30/16 Previous Rx's Medication Instructions Recorded Insulin DETEMIR [Levemir] 80 unit SQ HS [id number] 12/18/15 Aspirin 81 mg PO DAILY #30 tab.chew 12/22/15 Darbepoetin [Aranesp] 60 mcg SQ QWEEK syringe 01/23/16 Metoprolol [Lopressor] 25 mg PO BID 30 Days 01/26/16 Clopidogrel [Plavix] 75 mg PO DAILY tablet 04/23/16 Lisinopril [Zestril] 20 mg PO BID 30 Days 04/23/16 Omeprazole [PriLOSEC] 20 mg PO BID capsule. 04/23/16 Sennosides/Docusate Sodium [Senna 2 each PO BID PRN #0 tablet 04/23/16 Plus] CloNIDine HCl 0.2 mg PO TID #90 tablet 07/04/16 Fluconazole [Diflucan] 100 mg PO 1600 #7 tablet 07/04/16 Isosorbide MONOnitrate (24 HR) 120 mg PO DAILY tab.er.24h 07/04/16 [Imdur] Allergies Allergy/AdvReac Type Severity Reaction Status Date / Time Amoxicillin Allergy Hives Verified 04/21/16 08:16 ondansetron AdvReac Vomiting Verified 01/25/16 10:04 [From Zofran (as hydrochloride)] All systems ED: reviewed and negative except as stated. Constitutional: Denies: fever Cardiovascular: Reports: chest pain, dyspnea on exertion. Denies: palpitations Respiratory: Reports: dyspnea. 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 S1, S2. No murmurs, rubs or gallops. Respiratory: Scant expiratory wheezing but no respiratory distress. No rales or rhonchi. No coughing. Abdomen: Abdomen is soft without any guarding, rebound or rigidity. She has diffuse mild discomfort. No focality. No palpable organomegaly. Normal bowel sounds throughout. No overlying signs of trauma or injury. Negative Nava sign. Eyes: conjunctiva clear no scleral icterus HENT: No bruits No oral mucosal lesions. 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 No signs of infection. Skin: No lesions. No diaphoresis. Normal turgor. Normal color Psych: Appropriate - General Limitations: no limitations General appearance: alert Course Course Narrative: Presents to the emergency department with chest pain. She is an insulin- dependent diabetic, end stage renal disease and history of CAD. It sounds like she had a heart catheterization about 6 months ago. Chest pain has resolved now the patient is very hypersensitive around 220/110. She has chronic nausea and vomiting has not taken any of her blood pressure medications in days. She is on lisinopril, metoprolol and clonidine. She refused any oral medications due to nausea. We could not obtain IV access so we ordered a midline to be placed. She will be given antihypertensives through her IV as well as nausea medications. Plan to keep her in the emergency department to rule out acute coronary syndrome as well as treat her hypertensive urgency. Her chest x-ray shows some pulmonary edema which may be due to fluid overload and patient will be dialyzed. I spoke with her pocket assembler, Dr. Witt who will see her in the hospital. I then spoke with Dr. Murguia who accepts for admission, no further orders at this time Vital Signs Temperature 97.7 F 08/12/16 11:27 Pulse Rate 90 08/12/16 11:27 Respiratory Rate 16 08/12/16 11:27 Blood Pressure 235/129 08/12/16 11:27 O2 Sat by Pulse Oximetry 100 08/12/16 11:27 Temperature 97.7 F 08/12/16 11:27 Pulse Rate 92 08/12/16 11:39 Respiratory Rate 16 08/12/16 11:39 Blood Pressure 235/129 08/12/16 11:39 O2 Sat by Pulse Oximetry 96 08/12/16 11:56 Oxygen Delivery Oxygen Delivery Nasal Cannula Chest Pain - Lab Data Result diagrams: 08/12/16 13:45 08/12/16 12:20 Lab Results 08/12/16 08/12/16 08/12/16 Range/Units 12:20 12:20 13:45 WBC 5.5 (4.3-11.1) K/mcL RBC 3.12 L (3.82-4.97) M/mcL Hgb 8.2 L (11.5-15.4) g/dL Hct 27.3 L (35.3-44.9) % MCV 87.5 (83.0-100.0) fL MCH 26.3 L (28.0-33.3) pg MCHC 30.0 L (31.6-35.5) g/dL RDW 16.7 H (11.5-14.5) % Plt Count 191 (140-400) K/mcL MPV 10.3 (9.4-12.4) fL Immature Gran % 0.5 (0-4) % Seg Neutrophils % 70.3 % Lymphocytes % 17.6 % Monocytes % 6.6 % Eosinophils % 4.6 % Basophils % 0.4 % Neutrophils # 3.9 (1.6-8.9) K/mcL Lymphocytes # 1.0 (0.6-4.6) K/mcL Monocytes # 0.4 (0.0-1.3) K/mcL Eosinophils # 0.3 (0.0-0.6) K/mcL Basophils # 0.0 (0.0-0.2) K/mcL Immature Plt Fraction 3.9 (1.1-6.1) % Sodium 137 (136-145) mEq/L Potassium 5.4 H (3.5-4.5) mEq/L Chloride 99 (98-109) mEq/L Carbon Dioxide 22 (19-29) mEq/L BUN 57 H (7-20) mg/dL Creatinine 8.37 H (0.57-1.11) mg/dL Est GFR ( Amer) 7 L (> 60) Est GFR (Non-Af Amer) 5 L (> 60) BUN/Creatinine Ratio 7 (6-26) Glucose 196 H (70-99) mg/dL Calculated Osmolality 305 H (280-300) Calcium 9.6 (8.6-10.8) mg/dL Troponin I 0.13 H* (0-0.03) ng/mL - EKG Data EKG results narrative: EKG shows a sinus rhythm with a rate of [address] bpm. [address] is no ST elevation or depression. She has T-wave inversions in lead 1 and aVL. Poor R-wave progression. Left axis deviation. Previous EKG and 06/30/2016 shows similar T- wave changes, similar R-wave progression, similar axis without any acute ischemic changes
[2016-08-12] MEDS ORDERED: *HR* Promethazine 25 MG/ML VIAL IVP ONE (13:46)
[2016-08-12] MEDS ORDERED: *HR* Labetalol 20 MG/4 ML SYRINGE IVP ONE (13:46)
[2016-08-12] MEDS ORDERED: *HR* Morphine 2 MG/ML SYRINGE IV ONE ×2 (13:46→18:53)
[2016-08-12 13:52] LABS: Basophils % 0.4 %; Eosinophils # 0.3 K/mcL (0.0-0.6); Eosinophils % 4.6 %; Hematocrit 27.3 % (35.3-44.9); Hemoglobin 8.2 g/dL (11.5-15.4); Immature Granulocytes % 0.5 % (0-4); Immature Platelets 3.9 % (1.1-6.1); Lymphocytes % 17.6 %; Mean Corpuscular Hemoglobin 26.3 pg (28.0-33.3); Mean Corpuscular Volume 87.5 fL (83.0-100.0); Mean Platelet Volume 10.3 fL (9.4-12.4); Monocytes # 0.4 K/mcL (0.0-1.3); Monocytes % 6.6 %; Neutrophils # 3.9 K/mcL (1.6-8.9); Platelet Count 191 K/mcL (140-400); Red Blood Count 3.12 M/mcL (3.82-4.97); Red Cell Distribution Width 16.7 % (11.5-14.5); Segmented Neutrophils % 70.3 %
[2016-08-12] MEDS ORDERED: *HR* Morphine 2 MG/ML SYRINGE ONE (18:45)
[2016-08-12] MEDS ORDERED: *HR* Promethazine 25 MG/ML VIAL ONE (18:46)
[2016-08-12] MEDS ORDERED: Acetaminophen 325 MG TABLET PO PRN ×2 (19:18→20:43)
[2016-08-12] MEDS ORDERED: MOM Conc 10 ML UD.LIQ PO PRN ×2 (19:18→20:44)
[2016-08-12] MEDS ORDERED: Ondansetron 4 MG/2 ML VIAL IVP PRN (19:18)
[2016-08-12] MEDS ORDERED: Mag Hydrox/Al Hydrox/Simeth 30 ML UDC PO PRN ×2 (19:18→20:44)
[2016-08-12] MEDS ORDERED: Naloxone 0.4 MG/ML INJ IVP PRN (19:18)
[2016-08-12] MEDS ORDERED: clonazePAM 1 MG TABLET PO PRN (19:24)
[2016-08-12] MEDS ORDERED: *HR* OxyCODONE Immed Rel 5 MG TABLET PO PRN ×2 (19:24→20:45)
[2016-08-12] MEDS ORDERED: *HR* HYDROcodone/Acet 10/325 mg TABLET PO PRN (19:24)
[2016-08-12] MEDS ORDERED: Metoclopramide 10 MG/10 ML UD.LIQ PO PRN (19:24)
[2016-08-12] MEDS ORDERED: D5% in Water 1,000 ML IV PRN ×2 (19:28→19:30)
[2016-08-12] MEDS ORDERED: Dextrose Gel 15 GM PO PRN ×4 (19:28→19:30)
[2016-08-12] MEDS ORDERED: *HR* Dextrose 50 % in Water (Syg) 50 ML SYRINGE IVP PRN ×2 (19:28→19:30)
--- NOTE | 2016-08-12 19:47 | Internal Med History&Physical ---
Date of Encounter: 08/12/16 Time of Encounter: 18:50 Assessment and Plan (1) Hypertensive emergency Current visit: Yes Status: Acute Pt has been hypertensive since trying to take her bp at home this a.m. Pt has had n/v for the last week and has not been able to keep any of her medications down. During exam pt got Hydralazine 10mg IVP for the second time and her BP dropped to 175/90. disontinue home medications, will restart if pt is not vomiting tomorrow. Nicardipine gtt 5mg/hr IV, may titrate down to 2.5mg for systolic bp 150mm/hg.. (2) Nausea and vomiting Current visit: Yes Status: Chronic Pt has long history of n/v due to gastroparesis. Pt states that she has not been able to keep her medications down for the last week and that she tried to control the n/v with diet. Pt did eat 95% of her meal tray at her bedside and does not complain of nausea while I am speaking to her. Pt does not appear to be dehydrated, mucous membranes moist. Pt is allergic to Zofran and states that Reglan does not work as well as Phenergan does for nausea. Phenergan 12.5mg IV q6h prn nausea. Qualifiers: Vomiting type: unspecified Vomiting Intractability: intractable Qualified Code(s): R11.2 - Nausea with vomiting, unspecified (3) Elevated troponin Current visit: No Status: Acute Initial troponin 0.13ng/dl today. Repeat troponin q6h x 2. EKG shows no ST elevation, T wave inversion in lead I and aVL. Previous EKG shows similar changes. Telemetry VS q 4h (4) Chest pain Current visit: No Status: Acute Pt had 2 episodes of chest pain earlier today lasting approx 5-7 minutes each. Pt has not had any since and is pain free at this time. Plan as above. Qualifiers: Chest pain type: unspecified Qualified Code(s): R07.9 - Chest pain, unspecified (5) Anemia Current visit: No Status: Chronic Anemia of chronic disease. Stable. Hgb 8.2 which is normal per trends reviewed. Will cont to monitor. Qualifiers: Anemia type: unspecified type Qualified Code(s): D64.9 - Anemia, unspecified (6) DM type 1 (diabetes mellitus, type 1) Current visit: No Status: Chronic Serum glucose 196 today. Pt states that her normal blood glucose is in the 190s and low 200s. A1c 7.4 in Jun, 2015. continue levemir home dose Sliding scale coverage Diabetic diet Accucheck achs Qualifiers: Diabetes mellitus complication status: with kidney complications Diabetes mellitus complication detail: with chronic kidney disease Chronic kidney disease stage: on chronic dialysis Qualified Code(s): E10.22 - Type 1 diabetes mellitus with diabetic chronic kidney disease; N18.6 - End stage renal disease; Z99.2 - Dependence on renal dialysis (7) ESRD (end stage renal disease) on dialysis Current visit: No Status: Chronic creat 8.37 today. Will continue to monitor. Pt reports that she is compliant with her fluid restriction and gets PD Avoid nephrotoxins and NSAIDS Monitor labs. Internal Medicine - H&P: HPI Chief complaint: chest pain, htn, n/v x 1 week Admitted From: Home Plans for Post Hospital Care: Home History of present illness: Ms. Benavidez is a 36 year old female with extensive history of Type I DM, ESRD with dialysis, anemia, CAD, HTN, gastroparesis, chronic n/v. Pt has had n/v 3-4x /day for the last week, states that she thought it was just gastroparesis again and attempted to treat it at home. Pt has not taken any of her po medications since last . Today she arrives from home with sharp mid-sternal chest pain and pressure with radiation to upper abd below ang breasts and around to ang mid back. This occurred twice this a.m., accompanied by n/v, lasting approx 5-7 min each time. She took 2 baby ASA and attempted to take her BP with her home monitor and it would not read. Pt also reports that she has been turned away from 2 EDs this week, "they said they are not going to see me anymore for non-emergencies." Pt was at dialysis this a.m when she told the nurse about her chest pain and was sent here. ON arrival here she has been hypertensive, 200s over 190s. During exam, pt was given Hydralazine 10mg IVP for the 2nd time and her BP about 15 min after was 175/90. Pt denied pain to me. Ate approximately 95 % of dinner tray and denies nausea. Past Med Surg Social Fam HX - Past Medical History Medical history: coronary artery disease, diabetes, dialysis, hypertension, renal disease Psychiatric history: anxiety, depression - Past Surgical History Surgical History: hysterectomy, other - Social History Smoking Status: Never smoker Smokeless Tobacco Status: No Alcohol use: none Drug use: none - Family History Mother Adopted: No Family Member Ethnicity: Non- Living Status: Still Living Hx Family Cardiac Disorders: Yes (Father with coronary artery disease) Hx Family Respiratory Disorders: No Hx Family Cancer: Yes (Breast) Hx Family GI Disorders: No Hx Family Endocrine Disorder: Yes (Mother with dm) Hx Family Neuromuscular Disorders: No Hx Family Neurologic Disorders: No Hx Family HEENT Disorders: No Hx Family Autoimmune Disorders: No Internal Medicine - H&P: Meds Insulin DETEMIR [Levemir] 80 unit SQ HS [id number] 12/18/15 [Rx] Aspirin 81 mg PO DAILY #30 tab.chew 12/22/15 [Rx] HYDROcodone/Acet 10/325 mg [[place] 10-325 mg] 1 tab PO QID PRN 01/21/16 [History] Darbepoetin [Aranesp] 60 mcg SQ QWEEK syringe 01/23/16 [Rx] Metoprolol [Lopressor] 25 mg PO BID 30 Days 01/26/16 [Rx] ClonazePAM [Klonopin] 2 mg PO BID PRN 04/20/16 [History] Metoclopramide [Reglan] 10 mg PO Q6HR PRN 04/20/16 [History] Pantoprazole Sodium [Protonix] 40 mg PO DAILY 04/20/16 [History] Venlafaxine XR (24 HR) [Effexor XR] 37.5 mg PO HS 04/20/16 [History] Insulin ASPART [NovoLOG] 2 - 10 unit SQ TIDWM 04/21/16 [History] Clopidogrel [Plavix] 75 mg PO DAILY tablet 04/23/16 [Rx] Lisinopril [Zestril] 20 mg PO BID 30 Days 04/23/16 [Rx] Omeprazole [PriLOSEC] 20 mg PO BID capsule. 04/23/16 [Rx] Amlodipine/Atorvastatin [Caduet 5 mg-40 mg Tablet] 1 tab PO DAILY 06/30/16 [ History] NIFEdipine [Nifedical Xl] 60 mg PO DAILY 06/30/16 [History] Isosorbide MONOnitrate (24 HR) [Imdur] 120 mg PO DAILY tab.er.24h 07/04/16 [Rx] Amlodipine [Norvasc] 5 mg PO DAILY 08/12/16 [History] Atorvastatin [Lipitor] 40 mg PO DAILY 08/12/16 [History] Carvedilol [Carvedilol] 12.5 mg PO BID 08/12/16 [History] CloNIDine [Clonidine] 0.3 mg TP Q5D 08/12/16 [History] OxyCODONE Immed Rel [Roxicodone 5 MG] 5 mg PO Q4-6H PRN 08/12/16 [History] Prasugrel [Effient] 10 mg PO DAILY 08/12/16 [History] Allergies Amoxicillin Allergy (Verified 04/21/16 08:16) Hives ondansetron [From Zofran (as hydrochloride)] Adverse Reaction (Verified 10:04) Vomiting All Systems PM: A 10-system review of systems was performed and is negative for pertinent findings except as documented above in the HPI. - Constitutional Constitutional: no chills, no fatigue, no fever(s), no malaise, no weakness - Cardiovascular Cardiovascular ROS IM: chest pain, no dyspnea, no edema, no irregular heart rhythm, no palpitations - Respiratory Respiratory: cough, no dyspnea on exertion, no pain on inspiration, no chest congestion, no pain with cough - Gastrointestinal Gastrointestinal: cramping, nausea, vomiting - Constitutional Vitals: Temp Pulse Resp BP Pulse Ox 98.5 F 93 16 199/110 94 L 08/12/16 17:18 08/12/16 17:18 08/12/16 17:39 08/12/16 17:39 08/12/16 17:18 General appearance: Present: cooperative, disheveled, A&O X 3, pleasant, no acute distress, obese - Head Head exam: Present: atraumatic - Eye Eye exam: Present: normal appearance, conjuntiva pink - ENT ENT exam: Present: mucous membranes moist - Neck Neck exam general surgery: Absent: lymphadenopathy, tenderness - Respiratory Respiratory exam: Present: decreased breath sounds, CTAB. Absent: accessory muscle use, chest wall tenderness - Cardiovascular Cardiovascular exam: Present: RRR, +S1, +S2. Absent: diastolic murmur, systolic murmur - GI/Abdominal GI/Abdominal exam: Present: distended, guarding, hyperactive bowel sounds, tenderness - Neurological Exam Neurological exam: Present: alert, oriented X3 Internal Med - H&P Results - Labs CBC & Chem 7: 08/12/16 13:45 08/12/16 12:20
[2016-08-12] MEDS ORDERED: Venlafaxine XR (24 HR) 37.5 MG CAP.ER.24H PO SCH (21:00)
[2016-08-12] MEDS ORDERED: Lisinopril 20 MG TABLET PO SCH (21:00)
[2016-08-12] MEDS: *HR* Promethazine 25 MG/ML VIAL IVP PRN (21:49)
[2016-08-12] MEDS: CloNIDine Patch 0.3 MG PATCH (WEEKLY) TP SCH (21:50)
[2016-08-12] MEDS ORDERED: 0.9 % Sodium Chloride 1,000 ML ONE (22:41)
[2016-08-12] MEDS: niCARdipine 20 MG/200 ML MLS IVC SCH (22:52)
[2016-08-12] MEDS: Insulin DETEMIR 100 UNIT/ML X5UNITS SQ SCH (22:54)
[2016-08-12] MEDS ORDERED: *HR* Morphine 2 MG/ML SYRINGE IVP STA (22:55)
[2016-08-12] MEDS: Insulin LISPRO 300 UNITS/3 ML VIAL SQ SCH (23:00)
[2016-08-13] MEDS: *HR* Morphine 2 MG/ML SYRINGE IVP PRN ×6 (01:54→20:05)
[2016-08-13] MEDS: niCARdipine 20 MG/200 ML MLS IVC SCH ×2 (02:40→08:38)
[2016-08-13] MEDS: *HR* Promethazine 25 MG/ML VIAL IVP PRN ×4 (04:10→22:38)
[2016-08-13 04:33] LABS: Basophils % 0.3 %; Eosinophils # 0.3 K/mcL (0.0-0.6); Eosinophils % 4.1 %; Hematocrit 25.6 % (35.3-44.9); Hemoglobin 7.9 g/dL (11.5-15.4); Immature Granulocytes % 0.2 % (0-4); Lymphocytes # 0.9 K/mcL (0.6-4.6); Lymphocytes % 14.6 %; Mean Corpuscular HGB Conc 30.9 g/dL (31.6-35.5); Mean Corpuscular Hemoglobin 27.1 pg (28.0-33.3); Mean Corpuscular Volume 87.7 fL (83.0-100.0); Mean Platelet Volume 10.7 fL (9.4-12.4); Monocytes # 0.5 K/mcL (0.0-1.3); Monocytes % 7.9 %; Neutrophils # 4.4 K/mcL (1.6-8.9); Platelet Count 190 K/mcL (140-400); Red Blood Count 2.92 M/mcL (3.82-4.97); Red Cell Distribution Width 17.1 % (11.5-14.5); Segmented Neutrophils % 72.9 %
[2016-08-13 04:41] LABS: Hemoglobin A1C 6.6 %
[2016-08-13 04:48] LABS: Calcium 8.9 mg/dL (8.6-10.8); Potassium 4.6 mEq/L (3.5-4.5)
[2016-08-13] MEDS: Insulin LISPRO 300 UNITS/3 ML VIAL SQ SCH ×4 (07:50→20:59)
[2016-08-13] MEDS: Venlafaxine XR (24 HR) 37.5 MG CAP.ER.24H PO SCH ×2 (07:53→22:39)
[2016-08-13] MEDS: Aspirin 81 MG TAB.CHEW PO SCH (07:53)
[2016-08-13] MEDS ORDERED: NIFEdipine XL (24 HR) 60 MG TAB.ER.24 PO SCH (09:00)
[2016-08-13] MEDS ORDERED: Aspirin 81 MG TAB.CHEW PO SCH (09:00)
[2016-08-13] MEDS ORDERED: AMLODIPINE PO SCH (09:00)
[2016-08-13] MEDS ORDERED: Isosorbide MONOnitrate (24 HR) 60 MG TAB.ER.24H PO SCH (09:00)
[2016-08-13] MEDS ORDERED: [UNRECOGNIZED DRUG - OTHER] PO SCH (09:00)
[2016-08-13] MEDS ORDERED: Pantoprazole 40 MG VIAL IVP SCH (09:00)
[2016-08-13] MEDS ORDERED: ATORVASTATIN PO SCH (09:00)
[2016-08-13] MEDS ORDERED: amLODIPine 5 MG TABLET PO SCH (09:00)
[2016-08-13] MEDS ORDERED: 0.9 % Sodium Chloride 250 ML IV PRN (10:00)
--- NOTE | 2016-08-13 10:45 | Cardiology Consult Note ---
<Wilian Kelley - Last Filed: 08/13/16 11:30> Date of Encounter: 08/13/16 Time of Encounter: 10:38 Assessment and Plan (1) Elevated troponin Current Visit: No Status: Acute Baseline troponin elevation ED was 0.13 with repeat at 0.11. No EKG changes from previous visits. No ischemic changes noted. Echocardiogram ordered (2) Hypertensive urgency Current Visit: No Status: Acute Patient placed on Cardene drip without hypertension at this time. Pain remains mild in the retro-sternal region. Overall, troponin levels are chronically elevated. Wean Cardene gtt to stop. Start Home medications. Increase Lopressor to 50mg BID, keep lisinopril 20 mg BID, and Imdur 120mg daily. (3) CAD (coronary artery disease) Current Visit: No Status: Chronic (4) ESRD (end stage renal disease) on dialysis Current Visit: No Status: Chronic Likely dialysis today. (5) Diabetes 1.5, managed as type 1 Current Visit: No Status: Chronic (6) HTN (hypertension) Current Visit: No Status: Chronic Discussion w patient/family: The assessment and plan as outlined above was discussed with the patient and/or family members who expressed understanding and agreement. All questions were answered. Thank you for involving us in the care of your patient. Please call with any questions. History of Present Illness Consult date: 08/13/16 Requesting physician: Marcelo Sloan Consult reason: Elevated Cardiac Enzymes, Chest pain Chief complaint: Chest pain History of present illness: Ms. Benavidez is a 36 year old female with ESRD on dialysis, HTN, DMII, CAD arrived to [facility] ED complaining of 2 episodes of chest pain on 08/12/16. She states that she was getting off her couch and felt retro-sternal, radiating chest pain into the epigastrium and bilateral axilla that was crampy in sensation. Pain last 5 minutes. She states after she sat down again, she went to get up again and noted the exact same pain that lasted roughly 10 minutes. She states this feels the same as her previous LA's. She states that she had a cardiac cath for LA without stent placement in 03/13. She then states that she had another LA in 05/13 with cath and stent placement x3. The patient states that for 3 weeks now she has felt nauseated and been unable to keep anything down including her medications. She arrived hypertensive yesterday with systolic in the low 200's. She was subsequently placed on Cardene drip and admitted. Her troponin is 0.11 but it has been this elevated in the past and been elevated chronically since 12/11. The patient states she has been to several ED's for her nausea and vomiting and states that she has not been treated for her nausea. She also states she has not been following up with any of her outpatient appointments. Patient is a MWF dialysis patient. Past Med Surg Social Fam HX - Past Medical History Attestation: Yes The following information was validated with the patient. Source: patient, old records reviewed Medical history: coronary artery disease, diabetes, dialysis, hypertension, renal disease (On dialysis) Psychiatric history: anxiety, depression - Past Surgical History Surgical History: hysterectomy, other - Social History Smoking Status: Never smoker Smokeless Tobacco Status: No Alcohol use: none Drug use: none Current living situation: With Family Activity Level: Mostly sedentary - Family History Mother Adopted: No Family Member Ethnicity: Non- Living Status: Still Living Hx Family Cardiac Disorders: Yes (Father with coronary artery disease) Hx Family Respiratory Disorders: No Hx Family Cancer: Yes (Breast) Hx Family GI Disorders: No Hx Family Endocrine Disorder: Yes (Mother with dm) Hx Family Neuromuscular Disorders: No Hx Family Neurologic Disorders: No Hx Family HEENT Disorders: No Hx Family Autoimmune Disorders: No Medications and Allergies Insulin DETEMIR [Levemir] 80 unit SQ HS [id number] 12/18/15 [Rx] Aspirin 81 mg PO DAILY #30 tab.chew 12/22/15 [Rx] HYDROcodone/Acet 10/325 mg [[place] 10-325 mg] 1 tab PO QID PRN 01/21/16 [History] Darbepoetin [Aranesp] 60 mcg SQ QWEEK syringe 01/23/16 [Rx] Metoprolol [Lopressor] 25 mg PO BID 30 Days 01/26/16 [Rx] ClonazePAM [Klonopin] 2 mg PO BID PRN 04/20/16 [History] Metoclopramide [Reglan] 10 mg PO Q6HR PRN 04/20/16 [History] Venlafaxine XR (24 HR) [Effexor XR] 37.5 mg PO HS 04/20/16 [History] Insulin ASPART [NovoLOG] 2 - 10 unit SQ TIDWM 04/21/16 [History] Clopidogrel [Plavix] 75 mg PO DAILY tablet 04/23/16 [Rx] Lisinopril [Zestril] 20 mg PO BID 30 Days 04/23/16 [Rx] Omeprazole [PriLOSEC] 20 mg PO BID capsule. 04/23/16 [Rx] Amlodipine/Atorvastatin [Caduet 5 mg-40 mg Tablet] 1 tab PO DAILY 06/30/16 [ History] NIFEdipine [Nifedical Xl] 60 mg PO DAILY 06/30/16 [History] Isosorbide MONOnitrate (24 HR) [Imdur] 120 mg PO DAILY tab.er.24h 07/04/16 [Rx] Amlodipine [Norvasc] 5 mg PO DAILY 08/12/16 [History] Atorvastatin [Lipitor] 40 mg PO DAILY 08/12/16 [History] Carvedilol [Carvedilol] 12.5 mg PO BID 08/12/16 [History] CloNIDine [Clonidine] 0.3 mg TP Q5D 08/12/16 [History] Allergies Amoxicillin Allergy (Verified 04/21/16 08:16) Hives ondansetron [From Zofran (as hydrochloride)] Adverse Reaction (Verified 10:04) Vomiting All Systems Review: A 10-system review of systems was performed and is negative for pertinent findings except as documented above in the HPI. - Constitutional Constitutional: fatigue - Cardiovascular Cardiovascular: chest pain with exertion - Respiratory Respiratory: wheezing - Gastrointestinal Gastrointestinal: abdominal pain, diarrhea (intermittently), nausea, no coffee ground emesis, no dysphagia, no hematemesis, no hematochezia, no melena - Genitourinary Genitourinary: no dysuria Physical Examination Vital Signs, Last 4 Hours Temp Pulse Resp BP Pulse Ox 08/13/16 08:00 97.7 F 93 17 144/99 96 08/13/16 06:50 96 135/83 General: Conversant, No Apparent Distress HEENT: Atraumatic, Normocephaly, Mucus Membranes Moist Neck: No JVD Cardiac: Reg Rate and Rhythm, Normal S1 and S2, No Murmur Lungs: Other (Coarse breath sounds bilaterally) Neuro: Alert and responsive, No focal deficits noted Abdomen: Soft, Other (mildly tender to palpation generalized) Skin: No rashes noted on visualized skin Musculoskeletal: Other (mild sternal and costosternal tenderness to palpation) Extremities: No Clubbing, No Cyanosis, No Edema, Normal Pulses Results 08/13/16 04:05 08/13/16 04:05 Lab Results 08/12/16 08/13/16 08/13/16 19:29 00:37 04:05 WBC 6.1 Hgb 7.9 L Hct 25.6 L Plt Count 190 Sodium Potassium Chloride Carbon Dioxide BUN Creatinine Glucose Calcium Troponin I 0.11 H* 0.11 H* 08/13/16 04:05 WBC Hgb Hct Plt Count Sodium 138 Potassium 4.6 H Chloride 99 Carbon Dioxide 26 BUN 63 H Creatinine 9.14 H Glucose 146 H Calcium 8.9 Troponin I - Imaging and Cardiology Chest Xray: report reviewed, image reviewed Echo: pending - EKG Interpretation EKG results cardiology: personally reviewed, sinus rhythm, no diagnostic ischemia Consult Discharge Plan - Plan Referrals: Colt Espinoza MD [Primary Care Provider] - 08/18/16 10:45 am - Attending Attestation I examined this patient and my medical decision-making was reviewed with the Resident Physician. I agree with the documented findings, disposition and treatment plan as described except to the extent set forth below. <CarlosDunia - Last Filed: 08/13/16 13:34> Date of Encounter: 08/13/16 Assessment and Plan Discussion w patient/family: The assessment and plan as outlined above was discussed with the patient and/or family members who expressed understanding and agreement. All questions were answered. Thank you for involving us in the care of your patient. Please call with any questions. History of Present Illness History of present illness: Ms. Benavidez is a 36 year old female All Systems Review: A 10-system review of systems was performed and is negative for pertinent findings except as documented above in the HPI. Physical Examination Vital Signs, Last 4 Hours Temp Pulse Resp BP Pulse Ox 08/13/16 10:54 98 F 96 16 163/95 99 Results 08/13/16 04:05 08/13/16 04:05 Lab Results 08/12/16 08/13/16 08/13/16 19:29 00:37 04:05 WBC 6.1 Hgb 7.9 L Hct 25.6 L Plt Count 190 Sodium Potassium Chloride Carbon Dioxide BUN Creatinine Glucose Calcium Troponin I 0.11 H* 0.11 H* 08/13/16 04:05 WBC Hgb Hct Plt Count Sodium 138 Potassium 4.6 H Chloride 99 Carbon Dioxide 26 BUN 63 H Creatinine 9.14 H Glucose 146 H Calcium 8.9 Troponin I - Attending Attestation I examined this patient and my medical decision-making was reviewed with the WELFARE OFFICER/PA/Advanced Practice Nurse/Resident Physician. I agree with the documented findings, disposition and treatment plan. Ms. Benavidez presents with atypical chest symptoms that are still present. Her symptoms have not gone away for more than 24h. Troponins are chronically elevated and therefore not diagnostic in this setting. Her ECG demonstrates no changes from baseline. We recommend obtaining an echo for re-evaluation of structure and function. Her main complaint is that of nausea and vomiting which are most likely the cause of her symptoms. If her echo returns without new findings, we would recommend conservative management including blood pressure control and medical therapy. She denies missing any doses of DAPT after her recent PCI in April 2016.
--- NOTE | 2016-08-13 11:33 | Nephrology Progress Note ---
Date of Encounter: 08/13/16 Time of Encounter: 09:50 - Assessment and Plan (1) ESRD (end stage renal disease) Current Visit: No Status: Chronic No acute EKG changes, chronic troponin elevation. BP controlled, cardiology following. Will consult GI management of ongoing nausea, gastroparesis, hx fungal esophagitis. Will do HD today since not done yesterday. Orders given. Subjective Interval history: Ms. Benavidez is a 36 year old female with ESRD who dialyzes in [place] on MWF via right tunneled cateter. Other PMH insulin dependent diabetes, CAD with multiple stents, gastroparesis, HTN, right BKA and left forefoot amputee. She reported to dialysis yesterday but was transferred to [place] with complaints of chest pain without having HD. Chest pain started in epigastrum and radiated to chest, neck and axilla. No EKG changes, troponins chronically elevated. She also complained of nausea which is an ongoing issue given her history of gastroparesis. Also patient states had not taken BP medication for past few days due to nausea. BP in ER 210/110. Recent EGD showed diffuse fungal esophagitis and placed on Diflucan, but given patients history of poor medication compliance am uncertain if medication was taken as prescribed. Today she states no chest pain and was able to eat and keep breakfast down. Objective - Vital Signs Vital signs: Vital Signs Temp Pulse Resp BP Pulse Ox 08/13/16 10:54 98 F 96 16 163/95 99 08/13/16 08:00 97.7 F 93 17 144/99 96 08/13/16 06:50 96 135/83 08/13/16 06:35 96 144/84 08/13/16 06:20 107 146/84 08/13/16 06:05 95 170/98 08/13/16 05:50 98 165/89 08/13/16 05:35 100 151/89 08/13/16 05:20 96 154/87 08/13/16 05:05 96 143/83 08/13/16 04:54 97.9 F 102 16 133/78 90 L 08/13/16 04:50 97 133/78 08/13/16 04:35 99 140/81 08/13/16 04:20 100 144/82 08/13/16 04:05 101 164/90 08/13/16 03:50 98 158/89 08/13/16 03:35 98 149/88 08/13/16 03:20 96 154/91 08/13/16 03:05 101 174/90 08/13/16 02:50 160/88 08/13/16 02:35 98 172/98 08/13/16 02:20 98 162/88 08/13/16 02:05 97 162/91 08/13/16 01:50 99 168/91 08/13/16 01:35 100 163/83 08/13/16 01:20 98 155/88 08/13/16 01:08 102 167/88 08/13/16 00:50 101 135/75 08/13/16 00:35 100 150/81 08/13/16 00:24 98.6 F 103 29 150/79 95 08/13/16 00:23 98.6 F 103 29 150/79 95 08/13/16 00:22 103 137/79 08/12/16 23:35 155/82 08/12/16 23:20 153/79 08/12/16 23:05 172/97 08/12/16 22:50 198/109 08/12/16 20:53 98.1 F 102 16 192/108 94 L 08/12/16 17:39 16 199/110 08/12/16 17:18 98.5 F 93 17 205/104 94 L 08/12/16 16:58 88 16 216/116 97 08/12/16 16:30 89 16 212/111 97 Intake and Output 08/12/16 08/13/16 08/13/16 23:59 07:59 15:59 Intake Total 250 / 250 601 / 601 289 / 289 Output Total 0 / 0 Balance 250 / 250 601 / 601 289 / 289 Intake: IV Fluids 351 / 351 49 / 49 Cardene Premix 20mg/200ml 351 / 351 49 / 49 20 mg In 200 ml @ 5 MG/ HR 50 mls/hr IVC .Q4H [facility] Rx#:[id number] Oral 250 / 250 250 / 250 240 / 240 Output: Urine 0 / 0 Other: Meal Breakfast Percent of Meal Consumed 100% Weight 101.6 kg Blood Glucose* 208 115 84 Patient Weight 08/13/16 23:59 Weight 101.6 kg - General Appearance General appearance: Present: well-developed, well-nourished, appears started age EENT: Present: mucous membranes moist Neck: Present: no JVD Respiratory: Present: clear Cardiology: Present: no edema, regular rate, regular rhythm Additional Comments: right BKA Gastrointestinal: Present: normoactive bowel sounds, no tenderness Integumentary: Present: warm and dry Neurologic: Present: alert and oriented x3 Psychiatric: Present: mood/affect appropriate, cooperative - Lab 08/13/16 04:05 08/13/16 04:05 Most recent lab results Calcium 8.9 mg/dL (8.6-10.8) 08/13/16 04:05 Consult Discharge Plan - Plan Referrals: Colt Espinoza MD [Primary Care Provider] - 08/18/16 10:45 am
--- NOTE | 2016-08-13 12:49 | Internal Med Progress Note ---
Date of Encounter: 08/13/16 Time of Encounter: 09:00 - Assessment and plan (1) Chest pain, rule out acute myocardial infarction Current Visit: Yes Status: Acute Assessment and plan: Patient has a constant chest pain. She has chronic elevated troponin. Cardiology consultation appreciated. We will follow echocardiogram. (2) Hypertensive emergency Current Visit: Yes Status: Acute Assessment and plan: Improved after treatment. Resume home hypertension medications. Closely monitor blood pressure level. (3) Nausea and vomiting Current Visit: Yes Status: Chronic Assessment and plan: Patient had a chronic nausea and vomiting. We will continue supportive treatment. Qualifiers: Vomiting type: unspecified Vomiting Intractability: intractable Qualified Code(s): R11.2 - Nausea with vomiting, unspecified (4) DVT prophylaxis Current Visit: No Status: Acute Assessment and plan: Haperin subcutaneously (5) Elevated troponin Current Visit: No Status: Acute (6) DM type 1 (diabetes mellitus, type 1) Current Visit: No Status: Chronic Assessment and plan: We will continue basal and sliding a single insulin. Closely monitor glucose level. Qualifiers: Diabetes mellitus complication status: with kidney complications Diabetes mellitus complication detail: with chronic kidney disease Chronic kidney disease stage: on chronic dialysis Qualified Code(s): E10.22 - Type 1 diabetes mellitus with diabetic chronic kidney disease; N18.6 - End stage renal disease; Z99.2 - Dependence on renal dialysis (7) ESRD (end stage renal disease) on dialysis Current Visit: No Status: Chronic Assessment and plan: Continue hemodialysis. Nephrology consult on case. - Time Spent With Patient 25 - 35 minutes - Subjective Interval history: Patient is a 36-year-old female admitted for chest pain. Her past medical history is significant for type 1 diabetes, end-stage renal disease with hemodialysis, anemia, CAD, hypertension, gastroparesis, chronic nausea and vomiting. Patient was seen and examined. She is still compliant mild to moderate chest pain, no shortness of breath, nausea as her usual level. Hypotension has improved with nicardipine drip, drip has been discontinued, home hypertension medications has been resumed. Patient was placed on stress test but discontinued it because positive troponin. Review of her troponin level, she has a chronic high troponin. Cardiology consult was called and saw patient. Recommendations will be followed. We will continue to closely monitor patient, continue hemodialysis. - Constitutional Vitals: Temp Pulse Resp BP Pulse Ox 98 F 96 16 163/95 99 08/13/16 10:54 08/13/16 10:54 08/13/16 10:54 08/13/16 10:54 08/13/16 10:54 General appearance: Present: cooperative, disheveled, A&O X 3, pleasant, no acute distress, obese - Head Head exam: Present: atraumatic, normocephalic - Eye Eye exam: Present: PERRL, conjuntiva pink, sclera anicteric Pupils: Present: PERRL - Neck Neck exam general surgery: Present: supple, trachea midline. Absent: lymphadenopathy - Respiratory Respiratory exam: Present: CTAB. Absent: accessory muscle use, rales, rhonchi, wheezes - Cardiovascular Cardiovascular exam: Present: RRR, +S1, +S2. Absent: diastolic murmur, gallop, rubs, systolic murmur - GI/Abdominal GI/Abdominal exam: Present: normal bowel sounds, soft, no peritoneal signs. Absent: distended, tenderness - Extremities Exam Extremities exam: Present: warm, radial pulses palpable and symetrical. Absent : calf tenderness, cyanotic, pedal edema Additional comments: Amputation of right leg and left toes - Neurological Exam Neurological exam: Present: CN II-XII intact, oriented X3, no focal deficits. Absent: pronater drift, facial droop, speech deficit - Skin Skin exam: Present: dry, intact Internal Medicine: Result - Labs CBC & Chem 7: 08/13/16 04:05 08/13/16 04:05 Labs: Short CBC 08/13/16 Range/Units 04:05 WBC 6.1 (4.3-11.1) K/mcL Hgb 7.9 L (11.5-15.4) g/dL Hct 25.6 L (35.3-44.9) % Plt Count 190 (140-400) K/mcL Neutrophils # 4.4 (1.6-8.9) K/mcL BMP 08/13/16 04:05 Sodium 138 Potassium 4.6 H Chloride 99 Carbon Dioxide 26 BUN 63 H Creatinine 9.14 H Glucose 146 H Calcium 8.9 Cardiac Enzymes 08/12/16 08/13/16 Range/Units 19:29 00:37 Troponin I 0.11 H* 0.11 H* (0-0.03) ng/mL Consult Discharge Plan - Plan Referrals: Colt Espinoza MD [Primary Care Provider] - 08/18/16 10:45 am
[2016-08-13 17:51] LABS: Hepatitis B Surface Antigen Nonreactive (Nonreactive)
[2016-08-13] MEDS ORDERED: Nitroglycerin 1 INCH/GM PACKET TP PRN (18:13)
--- NOTE | 2016-08-13 19:42 | Electrocardiograph Report ---
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
[2016-08-13] MEDS: *HR* Heparin 5,000 UNIT/ML VIAL SQ SCH (20:05)
[2016-08-13] MEDS: Insulin DETEMIR 100 UNIT/ML X5UNITS SQ SCH (21:11)
[2016-08-13] MEDS: Lisinopril 20 MG TABLET PO SCH (22:39)
[2016-08-14] MEDS: *HR* Morphine 2 MG/ML SYRINGE IVP PRN ×8 (00:12→19:35)
[2016-08-14] MEDS: *HR* Promethazine 25 MG/ML VIAL IVP PRN ×4 (04:55→19:35)
[2016-08-14 05:16] LABS: Basophils % 0.4 %; Eosinophils # 0.2 K/mcL (0.0-0.6); Eosinophils % 2.9 %; Hematocrit 26.2 % (35.3-44.9); Immature Granulocytes % 0.3 % (0-4); Lymphocytes % 13.5 %; Mean Corpuscular HGB Conc 30.5 g/dL (31.6-35.5); Mean Corpuscular Hemoglobin 27.2 pg (28.0-33.3); Mean Corpuscular Volume 89.1 fL (83.0-100.0); Mean Platelet Volume 10.7 fL (9.4-12.4); Monocytes # 0.6 K/mcL (0.0-1.3); Monocytes % 7.4 %; Neutrophils # 5.6 K/mcL (1.6-8.9); Platelet Count 220 K/mcL (140-400); Red Blood Count 2.94 M/mcL (3.82-4.97); Red Cell Distribution Width 17.4 % (11.5-14.5); Segmented Neutrophils % 75.5 %
[2016-08-14 05:47] LABS: Calcium 8.6 mg/dL (8.6-10.8); Potassium 4.8 mEq/L (3.5-4.5)
[2016-08-14] MEDS: *HR* Heparin 5,000 UNIT/ML VIAL SQ SCH ×2 (06:09→18:18)
--- NOTE | 2016-08-14 07:52 | ECHO - Doppler Report ---
Echocardiogram Name: Freya Benavidez Date of Study: 08/13/2016 Date: 1980 Ht: 68.0 in Medical Record#: [id number] Age: 36 Wt: 223.0 lb Gender: Female BSA: 2.14 Order #: [id number] Location: [facility] Room #: 2N5 Reading Physician: Benjie Newman DO, ALBIN, JOSÉ LUIS DUQUE Internal Combustion Engine Subassembler: Hannah Sy RDCS Ordering Physician: Wilian Kelley DO Primary Physician: Colt Espinoza MD Indications: Chest pain, Elevated Troponin Impressions: LVEF 55-60%. Normal LV chamber size and function. Mild concentric left ventricular hypertrophy. Moderate left ventricular diastolic dysfunction. Normal right ventricular structure and function. Moderately dilated left atrium. Mild pulmonary hypertension. Estimated RVSP is 38 mmHg. No significant valvular dysfunction. Left Ventricular Wall Motion: Rest Echo Findings All wall segments showed normal motion. Findings: Study Quality * Technically adequate exam. ECG Findings * Normal sinus rhythm. Left Ventricle * LVEF 55-60%. * Normal LV chamber size and function. * Mild concentric left ventricular hypertrophy. * Moderate left ventricular diastolic dysfunction. Right Ventricle * Normal right ventricular structure and function. Left Atrium * Moderately dilated left atrium. Right Atrium * Normal right atrial size. Interatrial Septum * Interatrial septum not well evaluated. Aortic Valve * Trileaflet aortic valve. * No aortic regurgitation. * Mild aortic sclereosis suggested by mildly increased gradients (MG 10 mmHg). Mitral Valve * Focally thickened anterior MV leaflet. * Trace mitral regurgitation. * No mitral stenosis. Tricuspid Valve * Normal tricuspid valve structure and function. * Trace tricuspid regurgitation. * Mild pulmonary hypertension. * Estimated RVSP is 38 mmHg. * Estimated RA pressure is 5 mmHg. Pulmonic Valve * Pulmonic valve is not well visualized. * No pulmonic regurgitation. Aorta * Normally sized aortic root. Pericardium * The pericardium appears normal. IVC * Normal IVC dimensions and inspiratory collapse. Pulmonary Artery * Normal visualized portions of the main pulmonary artery. History Hypertension Diabetes Family History of CAD History of CAD/PTCA 12/22/2015 a Previous Echo was performed. Measurements: BP: 172/ 99 2D Normal Values IVSd: 1.24 cm 0.6 - 1.0 cm LVIDd: 4.28 cm 3.7 - 5.6 cm LVPWd: 1.30 cm 0.6 - 1.1 cm LVIDs: 2.30 cm 1.5 - 3.6 cm AO: 2.50 cm < 4.0 cm LA: 4.70 cm 2.0 - 4.0cm %FS: 46.30 cm >25 % LA volume: 71 Mitral Valve Peak E:1.46 m/sec Peak A:.81 m/sec E/A Ratio:1.8 Peak E' Lat Rgeg:9.95 cm/s Peak E' Med Greg:6.47 cm/s E/E' Lat Ratio:14.7 E/E' Med Ratio:22.6 LVOT Peak Greg:1.29 m/sec Mean Greg:.91 m/sec Peak Grad:7.00 mmHg Mean Grad:4.00 mmHg Aortic Valve Peak Greg:2.21 m/sec Mean Greg:1.46 m/sec Peak Grad:20.00 mmHg Mean Grad:10.00 mmHg Tricuspid Valve TV Regurg Peak Grad: 24.00mmHg TV Regurg Peak Greg: 2.45m/sec Updated by Benjie Newman DO, FACNoemí, JOSÉ LUIS DUQUE on 08/14/2016 7:47:30 AM electronically signed on 08/14/2016 7:48:02 AM with status of Final Wall Motion [place]: 1=Normal, 2=Hypokinesis, 3=Akinesis, 4=Dyskinesis, 5=Aneurysmal, 6=Hyperkinetic, X=Not Visualized (Blank)=Missing
[2016-08-14] MEDS: Isosorbide MONOnitrate (24 HR) 60 MG TAB.ER.24H PO SCH (08:07)
[2016-08-14] MEDS: Lisinopril 20 MG TABLET PO SCH ×2 (08:08→19:35)
[2016-08-14] MEDS: NIFEdipine XL (24 HR) 30 MG TAB.ER.24 PO SCH (08:08)
[2016-08-14] MEDS: Venlafaxine XR (24 HR) 37.5 MG CAP.ER.24H PO SCH (08:08)
[2016-08-14] MEDS: Aspirin 81 MG TAB.CHEW PO SCH (08:08)
[2016-08-14] MEDS: Insulin LISPRO 300 UNITS/3 ML VIAL SQ SCH ×4 (08:09→19:36)
[2016-08-14] MEDS ORDERED: 0.9 % Sodium Chloride 4,000 ML ONE (08:09)
--- NOTE | 2016-08-14 08:56 | Gastroenterology Consult Note ---
Date of Encounter: 08/14/16 Time of Encounter: 10:25 - Assessment and plan (1) Current use of intermediate designer anticoagulation Current Visit: Yes Status: Acute Assessment and plan: Hx of cardiac stent placement 04/2016 (2) Nausea and vomiting Current Visit: Yes Status: Chronic Assessment and plan: R/O gastroparesis - GES. Anti-emetics, gastroparesis diet. Currently on phenergan IV, allergy listed to zofran. Consider reglan/compazine for continued symptoms. Qualifiers: Vomiting type: unspecified Vomiting Intractability: intractable Qualified Code(s): R11.2 - Nausea with vomiting, unspecified (3) Chest pain Current Visit: No Status: Acute Assessment and plan: Hx of heart disease with stents. Qualifiers: Chest pain type: chest pain on breathing Qualified Code(s): R07.1 - Chest pain on breathing; R07.81 - Pleurodynia (4) Anemia Current Visit: No Status: Chronic Assessment and plan: ESRD on dialysis, currently 7.9, baseline is 8-9. R/O s/s of active GIB. On long -term anticoagulation. Qualifiers: Anemia type: unspecified type Qualified Code(s): D64.9 - Anemia, unspecified (5) ESRD (end stage renal disease) on dialysis Current Visit: No Status: Chronic (6) BRBPR (bright red blood per rectum) Current Visit: No Status: Chronic Assessment and plan: Likely anal fissure, local therapy. She is not a candidate for invasive procedures at present time. Continue lidocaine/diltiazem cream at time of d/c home. (7) Constipation Current Visit: No Status: Chronic Assessment and plan: miralax bid, Amitiza low dose. Qualifiers: Constipation type: unspecified constipation type Qualified Code(s): K59.00 - Constipation, unspecified - Time Spent With Patient Total time spent is greater than 50% in coordination of care (as documented) at patient's floor/unit and/or counseling patient: less than 15 minutes GI History of Present Illness - Data of Consult Patient: known to practice within the last 3 years Consult date: 08/14/16 Requesting Physician: Khadra Araya MD - Consult Narrative Reason for consult: N/V, possible gastroparesis, chr anemia History of present illness: Ms. Benavidez is a 36 year old female with a PMH of ESRD on dialysis, HTN, DMII, CAD arrived to [facility] ED complaining of 2 episodes of chest pain on 08/12/16. She states that she was getting off her couch and felt retro-sternal, radiating chest pain into the epigastrium and bilateral axilla that was crampy in sensation. Pain last 5 minutes. She states after she sat down again, she went to get up again and noted the exact same pain that lasted roughly 10 minutes. She states this feels the same as her previous CT's. She states that she had a cardiac cath for CT without stent placement in 03/13. She then states that she had another CT in 05/13 with cath and stent placement x3. The patient states that for 3 weeks now she has felt nauseated and been unable to keep anything down including her medications. She arrived hypertensive yesterday with systolic in the low 200's. She was subsequently placed on Cardene drip and admitted. Her troponin is 0.11 but it has been this elevated in the past and been elevated chronically since 12/11. The patient states she has been to several ED's for her nausea and vomiting and states that she has not been treated for her nausea. She also states she has not been following up with any of her outpatient appointments. Patient is a MWF dialysis patient. Patient was last seen by GI INPT 07/03/16 at which time an EGD was performed, diagnosis of monilial esophagitis. She was given anti-fungal medication. Recommendation by Dr. Bonilla at that time was repeat EGD/Colon with MAC - it was not completed. She has a follow up scheduled with Dr. Bonilla in the GI clinic for 09/01/16. No GES to date. She is currently on Effient, recently placed heart stents (04/2016). Patient is not very compliant with her f/u appointments and medications. She is prescribed Reglan, but doesn't use as prescribed at home. She is in poor health , as is her father, she is not very mobile. She complains of continually abd pain and nausea, she is not on a low residue diet currently. She is having constipation, using some miralax, mag citrate and laxatives at home, but produces large stools, BRBPR and pain when passing a large stool. She is not a candidate for invasive procedures at this time. Colonoscopy: None noted EGD: 07/03/16 - Gul - monilial esophagitis Past Med Surg Social Fam HX - Past Medical History Medical history: coronary artery disease, diabetes, dialysis, hypertension, renal disease (On dialysis) Psychiatric history: anxiety, depression - Past Surgical History Surgical History: hysterectomy, other - Social History Smoking Status: Never smoker Smokeless Tobacco Status: No Alcohol use: none Drug use: none - Family History Mother Adopted: No Family Member Ethnicity: Non- Living Status: Still Living Hx Family Cardiac Disorders: Yes (Father with coronary artery disease) Hx Family Respiratory Disorders: No Hx Family Cancer: Yes (Breast) Hx Family GI Disorders: No Hx Family Endocrine Disorder: Yes (Mother with dm) Hx Family Neuromuscular Disorders: No Hx Family Neurologic Disorders: No Hx Family HEENT Disorders: No Hx Family Autoimmune Disorders: No - Gastrointestinal NSAID use: None noted Anticoagulation Use: Effient, heparin Number of BM Per Day: 2-3 days Gastrointestinal: Present: abdominal pain, bloating, constipation, hematochezia , nausea, vomiting - Constitutional Constitutional: fatigue - EENT Eyes: as per HPI Ears: Present: as per HPI Nose, mouth and throat: Present: as per HPI - Cardiovascular Cardiovascular ROS: Present: chest pain - Respiratory Respiratory IM: Present: as per HPI - Neurological ROS Neurological GI: Present: as per HPI - Hematologic/Lymphatic Hematologic/Lymphatic pediatric: Present: as per HPI - Musculoskeletal Musculoskeletal ROS GI: Present: as per HPI - Integumentary Integumentary GI: Present: as per HPI - Psychiatric ROS Psychiatric GI: Present: as per HPI - Endocrine Endocrine IM: Present: as per HPI - Constitutional Vitals: Temp Pulse Resp BP Pulse Ox 98.2 F 84 18 175/99 91 L 08/14/16 07:30 08/14/16 07:30 08/14/16 07:30 08/14/16 07:30 08/14/16 07:30 General appearance: Present: mild distress, A&O X 3, obese, answers questions appropriately - Head Head exam: Present: atraumatic, normocephalic - Eye Eye exam: Present: normal appearance, sclera anicteric - ENT ENT exam: Present: mucous membranes moist - Neck Neck exam general surgery: Present: normal inspection, trachea midline - Respiratory Respiratory exam: Present: CTAB - Cardiovascular Cardiovascular exam: Present: RRR, +S1, +S2 - GI/Abdominal GI/Abdominal exam: Present: distended, soft, tenderness, no peritoneal signs - Rectal Rectal exam: Present: deferred - Extremities Exam Additional comments: R BKA, L foot amputated - Neurological Exam Neurological exam: Present: no focal deficits - Psychiatric Psychiatric exam: Present: agitated - Skin Skin exam: Present: dry, intact, normal color, warm Results - Labs CBC & Chem 7: 08/14/16 04:50 08/14/16 04:50 Labs: Last Result Calcium 8.6 mg/dL (8.6-10.8) 08/14/16 04:50 Troponin I 0.11 ng/mL (0-0.03) H* 08/13/16 00:37 Entire Visit Hgb 8.0 g/dL (11.5-15.4) L 08/14/16 04:50 Hct 26.2 % (35.3-44.9) L 08/14/16 04:50 Consult Discharge Plan - Plan Referrals: Colt Espinoza MD [Primary Care Provider] - 08/18/16 10:45 am
--- NOTE | 2016-08-14 09:41 | Cardiology Progress Note ---
<Wilian Kelley - Last Filed: 08/14/16 09:36> Date of Encounter: 08/14/16 Time of Encounter: 09:36 Assessment and Plan (1) Hypertensive urgency Current Visit: No Status: Acute Patient baseline troponin elevation therefore non-diagnostic for patient Hypertension improved on home medications Echo demonstrated normal EF. Chest pain is atypical for cardiac origin We will likely sign-off patient care at this time Please call for questions or concerns. We appreciate involvement in patient's care. (2) Elevated troponin Current Visit: No Status: Acute Baseline troponin elevation (3) CAD (coronary artery disease) Current Visit: No Status: Chronic Qualifiers: Coronary Disease-Associated Artery/Lesion type: [place] artery [place] vs. transplanted heart: [place] heart Associated angina: without angina Qualified Code(s): I25.10 - Atherosclerotic heart disease of [place] coronary artery without angina pectoris (4) ESRD (end stage renal disease) on dialysis Current Visit: No Status: Chronic Likely dialysis today. (5) Diabetes 1.5, managed as type 1 Current Visit: No Status: Chronic (6) HTN (hypertension) Current Visit: No Status: Chronic Qualifiers: Hypertension type: essential hypertension Qualified Code(s): I10 - Essential (primary) hypertension Discussion w patient/family: The assessment and plan as outlined above was discussed with the patient and/or family members who expressed understanding and agreement. All questions were answered. Thank you for involving us in the care of your patient. Please call with any questions. Subjective Principal diagnosis: Chest pain Interval history: Chest pain remains present but is atypical. Patient remains nauseated despite eating food tray. No other new complaints today. Hypertension improved overnight off the cardene drip on PO meds. Objective Vital Signs, Last 4 Hours Temp Pulse Resp BP Pulse Ox 08/14/16 07:30 98.2 F 84 18 175/99 91 L General: Conversant, No Apparent Distress HEENT: Normocephaly, Mucus Membranes Moist Neck: No JVD Cardiac: Reg Rate and Rhythm, Normal S1 and S2, No Murmur Lungs: Normal Breath Sounds, No Wheeze, Rales, Rhonchi Neuro: Alert and responsive, No focal deficits noted Abdomen: Soft, Non-Tender Skin: No rashes noted on visualized skin Musculoskeletal: No Chest Wall Tenderness Extremities: No Clubbing, No Cyanosis, No Edema Results 08/14/16 04:50 08/14/16 04:50 Lab Results 08/14/16 08/14/16 04:50 04:50 WBC 7.5 Hgb 8.0 L Hct 26.2 L Plt Count 220 Sodium 136 Potassium 4.8 H Chloride 96 L Carbon Dioxide 27 BUN 67 H Creatinine 8.34 H Glucose 143 H Calcium 8.6 - Imaging and Cardiology Echo: report reviewed Consult Discharge Plan - Plan Referrals: Colt Espinoza MD [Primary Care Provider] - 08/18/16 10:45 am <Dunia Gonzalez - Last Filed: 08/14/16 16:20> Date of Encounter: 08/14/16 Assessment and Plan Discussion w patient/family: I examined this patient and my medical decision-making was reviewed with the AERIAL SURVEY TECHNICIAN/PA/Advanced Practice Nurse/Resident Physician. I agree with the documented findings, disposition and treatment plan. Ms. Benavidez continues to have atypical chest pain that has been presently consistent without resolution since her admission. She continues also to have nausea and vomiting. Her troponins are nondiagnostic, chronically elevated and unchanged from prior. There has been no change in LVEF and no new wall motion abnormalities. There is no indication for further cardiac testing at this time. She should continue DAPT uninterrupted for at least 12 months given recent PCI. We will sign off. Please call with questions. Objective Vital Signs, Last 4 Hours Temp Pulse Resp BP Pulse Ox 08/14/16 16:08 97.6 F 81 18 162/87 100 08/14/16 15:25 73 08/14/16 14:21 75 08/14/16 13:05 128/80 08/14/16 12:50 128/79 08/14/16 12:35 117/71 08/14/16 12:20 114/70 Results 08/14/16 04:50 08/14/16 04:50 Lab Results 08/14/16 08/14/16 04:50 04:50 WBC 7.5 Hgb 8.0 L Hct 26.2 L Plt Count 220 Sodium 136 Potassium 4.8 H Chloride 96 L Carbon Dioxide 27 BUN 52 H Creatinine 8.34 H Glucose 143 H Calcium 8.6
[2016-08-14] MEDS ORDERED: *HR* Promethazine 25 MG/ML VIAL IVP PRN (09:52)
--- NOTE | 2016-08-14 10:01 | Nephrology Progress Note ---
Date of Encounter: 08/14/16 Time of Encounter: 09:59 - Assessment and Plan (1) ESRD (end stage renal disease) on dialysis Current Visit: No Status: Chronic Patient will undergo dialysis today. She will be on Aranesp for her anemia. She should not have her antihypertensive medications held on dialysis days. She is awaiting further input from GI regarding her chronic nausea and dysuria she needs any follow-up with regards to her previous diagnosis of esophageal candidiasis. (2) Chest pain Current Visit: No Status: Acute Qualifiers: Chest pain type: chest pain on breathing Qualified Code(s): R07.1 - Chest pain on breathing; R07.81 - Pleurodynia (3) Hypertensive urgency Current Visit: No Status: Acute Subjective Principal diagnosis: Chest pain Interval history: Patient is complaining of nausea. She says her chest pain is better. Blood pressures under better control. She is off the Cardene drip. She is scheduled for dialysis today. Objective - Vital Signs Vital signs: Vital Signs Temp Pulse Resp BP Pulse Ox 08/14/16 07:30 98.2 F 84 18 175/99 91 L 08/14/16 04:39 97.7 F 80 17 138/85 98 08/14/16 02:21 87 18 139/78 97 08/14/16 00:13 98.4 F 87 18 178/94 97 08/13/16 20:11 98.6 F 92 17 122/89 95 08/13/16 15:58 80 16 160/93 100 08/13/16 15:21 97.6 F 81 16 172/99 100 08/13/16 14:55 98.8 F 20 179/92 08/13/16 14:40 184/96 08/13/16 14:25 182/96 08/13/16 14:10 178/94 08/13/16 13:55 162/90 08/13/16 13:40 164/97 Intake and Output 08/13/16 08/14/16 08/14/16 23:59 07:59 15:59 Intake Total 460 / 460 240 / 240 Output Total 300 / 300 Balance 160 / 160 240 / 240 Intake: Oral 460 / 460 240 / 240 Output: Urine 300 / 300 Other: Weight 101.2 kg Blood Glucose* 147 144 Patient Weight 08/14/16 23:59 Weight 101.2 kg - General Appearance Exam: Patient is alert and oriented. She is in no acute distress. Lungsbreath sounds otherwise clear. Heart regular rhythm with a 2/6 ejection murmur. Abdomen shows normal bowel sounds bruits masses, megaly or tenderness. 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 She has a tunnel dialysis catheter in the right chest. - Lab 08/14/16 04:50 08/14/16 04:50 Most recent lab results Calcium 8.6 mg/dL (8.6-10.8) 08/14/16 04:50 Consult Discharge Plan - Plan Referrals: Colt Espinoza MD [Primary Care Provider] - 08/18/16 10:45 am
[2016-08-14] MEDS ORDERED: 0.9 % Sodium Chloride 250 ML IV PRN (10:02)
[2016-08-14] MEDS ORDERED: Darbepoetin 100 MCG/0.5 ML SYRINGE SQ SCH (10:15)
[2016-08-14 10:41] LABS: Hepatitis B Surface Antibody 19.52 mIU/mL
[2016-08-14] MEDS ORDERED: *HR* Promethazine 25 MG/ML VIAL IVP SCH (12:00)
[2016-08-14] MEDS: Metoclopramide 10 MG/2 ML VIAL IVP SCH ×2 (14:34→14:57)
--- NOTE | 2016-08-14 17:04 | Internal Med Progress Note ---
Date of Encounter: 08/14/16 Time of Encounter: 09:00 - Assessment and plan (1) Chest pain, rule out acute myocardial infarction Current Visit: Yes Status: Acute Assessment and plan: Patient has a constant chest pain. She has chronic elevated troponin. Cardiology consultation appreciated. Echocardiogram shows normal EF. Ont considering ACS. Pt's pain is most likely due to chronic uremia. Patient does not have desaturation, tachycardia, recent surgery or immobilization. Chest pain has improved. (2) Hypertensive emergency Current Visit: Yes Status: Acute Assessment and plan: Improved after treatment. Resume home hypertension medications. Add nifedipine XL 30 mg po qd. Closely monitor blood pressure level. (3) Nausea and vomiting Current Visit: Yes Status: Chronic Assessment and plan: Patient had a chronic nausea and vomiting. Possibly due to gastroparesis from diabetes. We will continue supportive treatment. Qualifiers: Vomiting type: unspecified Vomiting Intractability: intractable Qualified Code(s): R11.2 - Nausea with vomiting, unspecified (4) DVT prophylaxis Current Visit: No Status: Acute Assessment and plan: Haperin subcutaneously (5) Elevated troponin Current Visit: No Status: Acute Assessment and plan: Possibly demand ischemia. Patient has a chronic elevated troponin also. Cardiology consult appreciated (6) DM type 1 (diabetes mellitus, type 1) Current Visit: No Status: Chronic Assessment and plan: We will continue basal and sliding a single insulin. Closely monitor glucose level. Qualifiers: Diabetes mellitus complication status: with kidney complications Diabetes mellitus complication detail: with chronic kidney disease Chronic kidney disease stage: on chronic dialysis Qualified Code(s): E10.22 - Type 1 diabetes mellitus with diabetic chronic kidney disease; N18.6 - End stage renal disease; Z99.2 - Dependence on renal dialysis (7) ESRD (end stage renal disease) on dialysis Current Visit: No Status: Chronic - Subjective Interval history: Patient is a 36-year-old female admitted for chest pain. Her past medical history is significant for type 1 diabetes, end-stage renal disease with hemodialysis, anemia, CAD, hypertension, gastroparesis, chronic nausea and vomiting. Patient was seen and examined. She is still compliant mild chest pain, no shortness of breath, nausea as her usual level. Vitals are stable. BP is still high but much better controlled. Patient complaining of abdominal pain, CT abdomen ordered, results are remarkable. We will continue supportive treatment, add nifedipine XL 30mg po qd today. F/U BP. - Constitutional Vitals: Temp Pulse Resp BP Pulse Ox 97.6 F 81 18 139/80 100 08/14/16 16:08 08/14/16 16:08 08/14/16 16:08 08/14/16 16:13 08/14/16 16:08 General appearance: Present: cooperative, disheveled, A&O X 3, pleasant, no acute distress, obese - Head Head exam: Present: atraumatic, normocephalic - Eye Eye exam: Present: PERRL, conjuntiva pink, sclera anicteric Pupils: Present: PERRL - Neck Neck exam general surgery: Present: supple, trachea midline. Absent: lymphadenopathy - Respiratory Respiratory exam: Present: CTAB. Absent: accessory muscle use, rales, rhonchi, wheezes - Cardiovascular Cardiovascular exam: Present: RRR, +S1, +S2. Absent: diastolic murmur, gallop, rubs, systolic murmur - GI/Abdominal GI/Abdominal exam: Present: normal bowel sounds, soft, no peritoneal signs. Absent: distended, tenderness - Extremities Exam Extremities exam: Present: warm, radial pulses palpable and symetrical. Absent : calf tenderness, cyanotic, pedal edema Additional comments: Right lower leg and left toes s/p amputation - Neurological Exam Neurological exam: Present: CN II-XII intact, oriented X3, no focal deficits. Absent: pronater drift, facial droop, speech deficit - Skin Skin exam: Present: dry, intact Internal Medicine: Result - Labs CBC & Chem 7: 08/14/16 04:50 08/14/16 04:50 Labs: Short CBC 08/14/16 Range/Units 04:50 WBC 7.5 (4.3-11.1) K/mcL Hgb 8.0 L (11.5-15.4) g/dL Hct 26.2 L (35.3-44.9) % Plt Count 220 (140-400) K/mcL Neutrophils # 5.6 (1.6-8.9) K/mcL BMP 08/14/16 04:50 Sodium 136 Potassium 4.8 H Chloride 96 L Carbon Dioxide 27 BUN 52 H Creatinine 8.34 H Glucose 143 H Calcium 8.6 - Impressions Impressions Abdomen/Pelvis CT 08/14/16 10:06 IMPRESSION: 1. No acute abdominopelvic process demonstrated 2. Bilateral pleural effusions D/ / Lc Mckeon MD / Lc Mckeon MD Interpreting Provider: Lc Mckeon MD Consult Discharge Plan - Plan Referrals: Colt Espinoza MD [Primary Care Provider] - 08/18/16 10:45 am
[2016-08-14] MEDS: Insulin DETEMIR 100 UNIT/ML X5UNITS SQ SCH (19:42)
[2016-08-15] MEDS: *HR* Morphine 2 MG/ML SYRINGE IVP PRN ×7 (00:34→23:09)
[2016-08-15] MEDS: *HR* Promethazine 25 MG/ML VIAL IVP PRN ×6 (00:34→23:09)
[2016-08-15] MEDS: *HR* Heparin 5,000 UNIT/ML VIAL SQ SCH ×2 (04:35→19:51)
[2016-08-15 06:54] LABS: Basophils % 0.4 %; Eosinophils # 0.2 K/mcL (0.0-0.6); Eosinophils % 4.7 %; Hematocrit 24.2 % (35.3-44.9); Hemoglobin 7.3 g/dL (11.5-15.4); Immature Granulocytes % 0.4 % (0-4); Lymphocytes % 21.8 %; Mean Corpuscular HGB Conc 30.2 g/dL (31.6-35.5); Mean Corpuscular Hemoglobin 26.9 pg (28.0-33.3); Mean Corpuscular Volume 89.3 fL (83.0-100.0); Mean Platelet Volume 10.3 fL (9.4-12.4); Monocytes # 0.4 K/mcL (0.0-1.3); Monocytes % 8.9 %; Neutrophils # 2.9 K/mcL (1.6-8.9); Platelet Count 208 K/mcL (140-400); Red Blood Count 2.71 M/mcL (3.82-4.97); Red Cell Distribution Width 17.2 % (11.5-14.5); Segmented Neutrophils % 63.8 %
[2016-08-15 07:09] LABS: Calcium 8.4 mg/dL (8.6-10.8); Potassium 4.8 mEq/L (3.5-4.5)
[2016-08-15] MEDS: NIFEdipine XL (24 HR) 30 MG TAB.ER.24 PO SCH (08:59)
[2016-08-15] MEDS: Venlafaxine XR (24 HR) 37.5 MG CAP.ER.24H PO SCH (08:59)
[2016-08-15] MEDS: Isosorbide MONOnitrate (24 HR) 60 MG TAB.ER.24H PO SCH (08:59)
[2016-08-15] MEDS: Aspirin 81 MG TAB.CHEW PO SCH (09:00)
[2016-08-15] MEDS: Lisinopril 20 MG TABLET PO SCH ×2 (09:00→21:34)
[2016-08-15] MEDS: Insulin LISPRO 300 UNITS/3 ML VIAL SQ SCH ×4 (09:07→21:35)
--- NOTE | 2016-08-15 09:25 | Nephrology Progress Note ---
Date of Encounter: 08/15/16 Time of Encounter: 09:00 - Assessment and Plan (1) ESRD (end stage renal disease) Current Visit: No Status: Chronic Dysuria/hematuria, urine culture pending. No further CP, GI consulted. HD on Wednesday, keeping MWF schedule. Subjective Principal diagnosis: Chest pain Interval history: Eating breakfast. Denies CP. Complains of dysuria/hematuria. Staff state urine culture sent 2 days ago. Objective - Vital Signs Vital signs: Vital Signs Temp Pulse Resp BP Pulse Ox 08/15/16 07:02 98.0 F 95 18 186/105 94 L 08/15/16 04:32 98.2 F 79 17 134/81 98 08/15/16 00:31 98.1 F 77 15 143/82 99 08/14/16 18:55 97.6 F 77 16 168/93 100 08/14/16 16:08 97.6 F 81 18 162/87 100 08/14/16 15:25 73 08/14/16 14:21 75 08/14/16 13:55 98.2 F 18 148/90 08/14/16 13:50 134/80 08/14/16 13:35 145/90 08/14/16 13:20 135/95 08/14/16 13:05 128/80 08/14/16 12:50 128/79 08/14/16 12:35 117/71 08/14/16 12:20 114/70 08/14/16 12:05 129/77 08/14/16 11:50 130/80 08/14/16 11:35 129/78 08/14/16 11:22 86 08/14/16 11:20 139/80 08/14/16 11:05 143/92 08/14/16 10:50 98.2 F 18 170/101 Intake and Output 08/14/16 08/15/16 08/15/16 23:59 07:59 15:59 Intake Total 120 / 120 790 / 790 Output Total 200 / 200 Balance 120 / 120 590 / 590 Intake: Oral 120 / 120 790 / 790 Output: Urine 200 / 200 Other: Weight 101.2 kg Blood Glucose* 114 92 Patient Weight 08/15/16 23:59 Weight 101.2 kg - General Appearance General appearance: Present: well-developed, well-nourished, appears started age EENT: Present: mucous membranes moist Neck: Present: no JVD Respiratory: Present: clear Cardiology: Present: no edema, regular rate, regular rhythm Gastrointestinal: Present: normoactive bowel sounds, no tenderness, no guarding Integumentary: Present: warm and dry Neurologic: Present: alert and oriented x3 Psychiatric: Present: mood/affect appropriate, cooperative - Lab 08/15/16 06:45 08/15/16 06:45 Most recent lab results Calcium 8.4 mg/dL (8.6-10.8) L 08/15/16 06:45 Consult Discharge Plan - Plan Referrals: Colt Espinoza MD [Primary Care Provider] - 08/18/16 10:45 am
[2016-08-15] MEDS ORDERED: NIFEdipine XL (24 HR) 30 MG TAB.ER.24 PO ONE (12:10)
--- NOTE | 2016-08-15 12:27 | Internal Med Progress Note ---
Date of Encounter: 08/15/16 Time of Encounter: 09:00 - Assessment and plan (1) Chest pain, rule out acute myocardial infarction Current Visit: Yes Status: Acute Assessment and plan: Patient has a constant chest pain. She has chronic elevated troponin. Cardiology consultation appreciated. Echocardiogram shows normal EF. Not considering ACS. Pt's pain is most likely due to chronic uremia. Patient doesn' t have desaturation, tachycardia, she denies recent surgery or immobilization. Chest pain has improved now. (2) Hypertensive emergency Current Visit: Yes Status: Acute Assessment and plan: Improved after treatment. Resume home hypertension medications. Add nifedipine XL 60 mg po qd. Closely monitor blood pressure level. (3) Nausea and vomiting Current Visit: Yes Status: Chronic Assessment and plan: Patient had a chronic nausea and vomiting. Possibly due to gastroparesis from diabetes. GI on case. Add erythromycin 125mg tid with meal. We will continue supportive treatment. Qualifiers: Vomiting type: unspecified Vomiting Intractability: intractable Qualified Code(s): R11.2 - Nausea with vomiting, unspecified (4) DVT prophylaxis Current Visit: No Status: Acute Assessment and plan: Haperin subcutaneously (5) Elevated troponin Current Visit: No Status: Acute Assessment and plan: Possibly demand ischemia. Patient has a chronic elevated troponin also. Cardiology consult appreciated (6) DM type 1 (diabetes mellitus, type 1) Current Visit: No Status: Chronic Assessment and plan: We will continue basal and sliding a single insulin. Closely monitor glucose level. Qualifiers: Diabetes mellitus complication status: with kidney complications Diabetes mellitus complication detail: with chronic kidney disease Chronic kidney disease stage: on chronic dialysis Qualified Code(s): E10.22 - Type 1 diabetes mellitus with diabetic chronic kidney disease; N18.6 - End stage renal disease; Z99.2 - Dependence on renal dialysis (7) ESRD (end stage renal disease) on dialysis Current Visit: No Status: Chronic Assessment and plan: Continue hemodialysis. Nephrology consult on case. - Time Spent With Patient 25 - 35 minutes - Subjective Interval history: Patient is a 36-year-old female admitted for chest pain. Her past medical history is significant for type 1 diabetes, end-stage renal disease with hemodialysis, anemia, CAD, hypertension, gastroparesis, chronic nausea and vomiting. Patient was seen and examined. She is still compliant nausea, mild chest pain, no shortness of breath, nausea as her usual level. Vitals are stable. BP is still high but much better controlled. Will change nifedipine XL to 60mg po qd. D/W GI, will add erythromycin 125mg po tid wm for gastroparesis. We will continue supportive treatment. - Constitutional Vitals: Temp Pulse Resp BP Pulse Ox 98.0 F 74 16 165/101 100 08/15/16 11:17 08/15/16 12:12 08/15/16 11:17 08/15/16 11:17 08/15/16 12:12 General appearance: Present: cooperative, disheveled, A&O X 3, pleasant, no acute distress, obese - Head Head exam: Present: atraumatic, normocephalic - Eye Eye exam: Present: PERRL, conjuntiva pink, sclera anicteric Pupils: Present: PERRL - Neck Neck exam general surgery: Present: supple, trachea midline. Absent: lymphadenopathy - Respiratory Respiratory exam: Present: CTAB. Absent: accessory muscle use, rales, rhonchi, wheezes - Cardiovascular Cardiovascular exam: Present: RRR, +S1, +S2. Absent: diastolic murmur, gallop, rubs, systolic murmur - GI/Abdominal GI/Abdominal exam: Present: normal bowel sounds, soft, no peritoneal signs. Absent: distended, tenderness - Extremities Exam Extremities exam: Present: warm, radial pulses palpable and symetrical. 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 - Neurological Exam Neurological exam: Present: CN II-XII intact, oriented X3, no focal deficits. Absent: pronater drift, facial droop, speech deficit - Skin Skin exam: Present: dry, intact Internal Medicine: Result - Labs CBC & Chem 7: 08/15/16 06:45 08/15/16 06:45 Labs: Short CBC 08/15/16 Range/Units 06:45 WBC 4.5 (4.3-11.1) K/mcL Hgb 7.3 L (11.5-15.4) g/dL Hct 24.2 L (35.3-44.9) % Plt Count 208 (140-400) K/mcL Neutrophils # 2.9 (1.6-8.9) K/mcL BMP 08/14/16 08/15/16 04:50 06:45 Sodium 136 135 L Potassium 4.8 H 4.8 H Chloride 96 L 94 L Carbon Dioxide 27 27 BUN 52 H 43 H Creatinine 8.34 H 6.11 H Glucose 143 H 98 Calcium 8.6 8.4 L Consult Discharge Plan - Plan Referrals: Colt Espinoza MD [Primary Care Provider] - 08/18/16 10:45 am
[2016-08-15] MEDS: Erythromycin Susp 200 MG/5 ML UDC PO SCH (21:34)
[2016-08-15] MEDS: Insulin DETEMIR 100 UNIT/ML X5UNITS SQ SCH (22:27)
[2016-08-16] MEDS: *HR* Promethazine 25 MG/ML VIAL IVP PRN ×5 (03:29→21:55)
[2016-08-16] MEDS: *HR* Morphine 2 MG/ML SYRINGE IVP PRN ×5 (04:16→21:54)
[2016-08-16 04:50] LABS: Basophils % 0.1 %; Eosinophils # 0.3 K/mcL (0.0-0.6); Eosinophils % 3.6 %; Hematocrit 25.3 % (35.3-44.9); Hemoglobin 7.7 g/dL (11.5-15.4); Immature Granulocytes % 0.4 % (0-4); Lymphocytes # 0.8 K/mcL (0.6-4.6); Lymphocytes % 11.3 %; Mean Corpuscular HGB Conc 30.4 g/dL (31.6-35.5); Mean Corpuscular Hemoglobin 26.9 pg (28.0-33.3); Mean Corpuscular Volume 88.5 fL (83.0-100.0); Mean Platelet Volume 10.8 fL (9.4-12.4); Monocytes # 0.5 K/mcL (0.0-1.3); Monocytes % 6.2 %; Platelet Count 259 K/mcL (140-400); Red Blood Count 2.86 M/mcL (3.82-4.97); Segmented Neutrophils % 78.4 %
[2016-08-16 04:54] LABS: Neutrophils # 5.6 K/mcL (1.6-8.9)
[2016-08-16] MEDS ORDERED: Nitroglycerin 0.4 MG TAB.SUBL SL PRN (05:59)
[2016-08-16] MEDS ORDERED: Nitroglycerin 0.4 MG TAB.SUBL SL ONE (06:05)
[2016-08-16] MEDS ORDERED: Nitroglycerin 25 MG/250 ML INFUS..BTL IVC SCH (06:15)
[2016-08-16] MEDS ORDERED: Prochlorperazine 10 MG/2 ML VIAL IVP ONE (06:15)
--- NOTE | 2016-08-16 06:23 | Event Note ---
<Jhoana Oquendo - Last Filed: 08/16/16 06:37> Date of Encounter: 08/16/16 Time of Encounter: 06:19 Called by nursing staff to evaluate patient because patient started complaining of new chest pain and nausea/vomiting. Patient was given hydralazine for a blood pressure of 188/97. Approximately 20 min later she developed acute onset of chest pain and nausea and vomiting. She states that her pain is "all over her chest" and is a 10/10. She says this is similar to pain she had in the past but it is not going away. She also states that she has a headache and feels hot all over. On exam, patient is sitting up, pale and sweating. Heart is normal sinus and lungs are clear. Manual blood pressure yields 194/107. EKG done and compared to admission EKG. Pericardial leads show no changes. Rhythm is normal sinus. There are no ST segment elevation or new T wave inversion. Patient given 0.4mg sublingual nitroglycerin. Patient just received morphine and phenergan 1 hour ago. She allergic to zofran so she was given 10mg IV compazine for the nausea/vomiting. Will start a terry drip for the chest pain which will also help with her blood pressure. At this point, patient reports some improvement in her chest pain but reports that the rest of her body hurts and requested more pain medication. Patient seen and examined by attending physician, Dr. Sloan. <Marcelo Sloan - Last Filed: 08/17/16 04:51> Date of Encounter: 08/17/16 I examined this patient and my medical decision-making was reviewed with the Resident Physician, Dr. Ouqendo. I agree with the documented findings, disposition and treatment plan as described except to the extent set forth below. I have personally evaluated tthe patient and reviewed her EKG. There are no acute chchanges. we will start IV nitroglycer and trend troponin.
[2016-08-16] MEDS: *HR* Heparin 5,000 UNIT/ML VIAL SQ SCH ×2 (08:40→19:28)
--- NOTE | 2016-08-16 08:57 | Nephrology Progress Note ---
Date of Encounter: 08/16/16 Time of Encounter: 08:40 - Assessment and Plan (1) ESRD (end stage renal disease) Current Visit: No Status: Chronic Dysuria/hematuria, urine culture reordered. SBP 130-140 on NTG gtt for CP onset last PM. HD on Wednesday, keeping MWF schedule. Subjective Principal diagnosis: Chest pain Interval history: Sitting up in bed. States not feeling well. Started on NTG gtt last night for CP. Continues to have dysuria. Staff stated urine culture sent on Aug 13, microbiology states they did not receive urine. Objective - Vital Signs Vital signs: Vital Signs Temp Pulse Resp BP Pulse Ox 08/16/16 06:40 105 192/102 08/16/16 06:06 190/108 08/16/16 06:00 97.5 F L 93 20 194/107 08/16/16 04:49 98.4 F 75 16 188/97 98 08/15/16 21:27 98.8 F 80 18 127/84 98 08/15/16 16:18 74 17 125/73 98 08/15/16 12:12 74 100 08/15/16 11:17 98.0 F 76 16 165/101 100 08/15/16 09:12 82 100 Intake and Output 08/15/16 08/16/16 08/16/16 23:59 07:59 15:59 Output Total 225 / 225 Balance -225 / -225 -15 / -15 Output: Urine 225 / 225 Emesis Other: Weight 101 kg Blood Glucose* 98 178 - General Appearance General appearance: Present: well-developed, well-nourished, appears started age EENT: Present: mucous membranes moist Neck: Present: no JVD Respiratory: Present: clear Cardiology: Present: no edema, regular rate, regular rhythm Additional Comments: right BKA Gastrointestinal: Present: normoactive bowel sounds, no tenderness Integumentary: Present: warm and dry Neurologic: Present: alert and oriented x3 Psychiatric: Present: mood/affect appropriate, cooperative - Lab 08/16/16 04:18 08/15/16 06:45 Most recent lab results Calcium 8.4 mg/dL (8.6-10.8) L 08/15/16 06:45 Consult Discharge Plan - Plan Referrals: Colt Espinoza MD [Primary Care Provider] - 08/18/16 10:45 am
[2016-08-16] MEDS: Insulin LISPRO 300 UNITS/3 ML VIAL SQ SCH ×4 (09:24→20:27)
[2016-08-16 09:28] LABS: Calcium 8.5 mg/dL (8.6-10.8)
[2016-08-16 09:31] LABS: Potassium 7.7 mEq/L (3.5-4.5)
[2016-08-16] MEDS ORDERED: Calcium Gluconate 1,000 MG in D5% in Water 100 ML IVPB ONE (09:39)
[2016-08-16] MEDS ORDERED: *HR* Dextrose 50 % in Water (Syg) 50 ML SYRINGE IVP ONE (09:40)
[2016-08-16] MEDS ORDERED: Insulin Human Regular 10 UNIT in 0.9 % Sodium Chloride 10 ML IV ONE (09:41)
[2016-08-16] MEDS ORDERED: *HR* Morphine 2 MG/ML SYRINGE IVP ONE (09:47)
[2016-08-16] MEDS ORDERED: 0.9 % Sodium Chloride 250 ML IV PRN (12:11)
--- NOTE | 2016-08-16 13:29 | Internal Med Progress Note ---
Date of Encounter: 08/16/16 Time of Encounter: 10:00 - Assessment and plan (1) Hyperkalemia Current Visit: Yes Status: Acute Assessment and plan: EKG showed widened QRS. Amp sodium bicarb given as well as D50, insulin and calcium gluconate. Pt to go to emergent dialysis this morning. (2) Chest pain Current Visit: No Status: Acute Assessment and plan: Pain persists despite nitro drip. Currently going to urgent dialysis. Will most likely need cardiology to reevaluate. Qualifiers: Chest pain type: precordial pain Qualified Code(s): R07.2 - Precordial pain (3) Hypertensive emergency Current Visit: Yes Status: Acute Assessment and plan: Blood pressure better controlled today. Continue PO medications. (4) Diabetes Current Visit: No Status: Chronic Assessment and plan: Continue to monitor blood sugar and cover Qualifiers: Diabetes mellitus type: type 1 Diabetes mellitus complication status: with kidney complications Diabetes mellitus complication detail: with chronic kidney disease Chronic kidney disease stage: on chronic dialysis Qualified Code(s): E10.22 - Type 1 diabetes mellitus with diabetic chronic kidney disease ; N18.6 - End stage renal disease; Z99.2 - Dependence on renal dialysis (5) Gastroparesis Current Visit: No Status: Chronic Assessment and plan: On erythromycin for treatment. (6) Insulin dependent diabetes mellitus Current Visit: No Status: Chronic - Subjective Interval history: Ms. Benavidez is currently admitted for hypertensive emergency and chest pain. She had recurrence of chest pain last evening and was transferred for a nitro drip. She is high risk due to potential for worsening cardiac status. Ms. Benavidez continues to have chest pain this morning. Her potassium is 7.7. She is also having some nausea. Arrangements are being made for urgent dialysis. - Constitutional Vitals: Temp Pulse Resp BP Pulse Ox 97.8 F 80 16 157/88 98 08/16/16 12:04 08/16/16 12:04 08/16/16 12:04 08/16/16 12:04 08/16/16 12:04 General appearance: Present: cooperative, A&O X 3 - Head Head exam: Present: normocephalic - Eye Eye exam: Present: conjuntiva pink - ENT ENT exam: Present: mucous membranes dry - Respiratory Respiratory exam: Present: decreased breath sounds, CTAB - Cardiovascular Cardiovascular exam: Present: RRR. Absent: tachycardia - GI/Abdominal GI/Abdominal exam: Present: soft. Absent: tenderness - Neurological Exam Neurological exam: Present: alert, oriented X3 Internal Medicine: Result - Labs CBC & Chem 7: 08/16/16 04:18 08/16/16 08:11 Labs: Short CBC 08/16/16 Range/Units 04:18 WBC 7.2 D (4.3-11.1) K/mcL Hgb 7.7 L (11.5-15.4) g/dL Hct 25.3 L (35.3-44.9) % Plt Count 259 (140-400) K/mcL Neutrophils # 5.6 (1.6-8.9) K/mcL BMP 08/16/16 08:11 Sodium 131 L Potassium 7.7 H* D Chloride 92 L Carbon Dioxide 21 BUN 69 H D Creatinine 7.75 H Glucose 168 H Calcium 8.5 L Cardiac Enzymes 08/16/16 Range/Units 06:11 Troponin I 0.05 H* (0-0.03) ng/mL Consult Discharge Plan - Plan Referrals: Colt Espinoza MD [Primary Care Provider] - 08/18/16 10:45 am
[2016-08-16] MEDS: Erythromycin Susp 200 MG/5 ML UDC PO SCH ×3 (13:53→17:04)
[2016-08-16] MEDS: Aspirin 81 MG TAB.CHEW PO SCH (13:53)
[2016-08-16] MEDS: NIFEdipine XL (24 HR) 30 MG TAB.ER.24 PO SCH ×2 (13:54→17:08)
[2016-08-16] MEDS: Lisinopril 20 MG TABLET PO SCH ×2 (13:54→20:26)
[2016-08-16] MEDS: Venlafaxine XR (24 HR) 37.5 MG CAP.ER.24H PO SCH ×2 (13:54→17:08)
[2016-08-16] MEDS: Isosorbide MONOnitrate (24 HR) 60 MG TAB.ER.24H PO SCH (13:54)
[2016-08-16] MEDS: Insulin DETEMIR 100 UNIT/ML X5UNITS SQ SCH (20:26)
[2016-08-17] MEDS: *HR* Morphine 2 MG/ML SYRINGE IVP PRN ×5 (03:53→21:28)
[2016-08-17] MEDS: *HR* Promethazine 25 MG/ML VIAL IVP PRN ×4 (03:53→21:39)
[2016-08-17 05:14] LABS: Albumin 2.9 g/dL (3.5-5.0); Calcium 8.2 mg/dL (8.6-10.8); Phosphorous 6.7 mg/dL (2.3-4.7)
[2016-08-17 05:18] LABS: Potassium 4.4 mEq/L (3.5-4.5)
[2016-08-17] MEDS: *HR* Heparin 5,000 UNIT/ML VIAL SQ SCH ×2 (06:24→17:28)
[2016-08-17] MEDS: Aspirin 81 MG TAB.CHEW PO SCH (08:28)
[2016-08-17] MEDS: Insulin LISPRO 300 UNITS/3 ML VIAL SQ SCH ×4 (08:36→21:21)
[2016-08-17] MEDS: Venlafaxine XR (24 HR) 37.5 MG CAP.ER.24H PO SCH (08:36)
--- NOTE | 2016-08-17 10:24 | Internal Med Progress Note ---
<Tj Good - Last Filed: 08/17/16 14:47> Date of Encounter: 08/17/16 Time of Encounter: 10:21 - Assessment and plan (1) Chest pain, rule out acute myocardial infarction Current Visit: Yes Status: Acute Assessment and plan: 36-year-old female history of diabetes type 1, end-stage renal disease, coronary artery disease presenting with chest pain and hypertensive urgency. Her troponins were elevated at baseline. Echocardiogram showed normal ejection fraction. Cardiology was consultative and noted chest pain to be atypical. Yesterday patient had 10 out of 10 chest pain and was started on nitro drip. She is noted to be hyperkalemic with low-salt 0.7. She underwent urgent dialysis and also was given insulin bicarbonate and calcium gluconate. This morning her potassium is 4.4. Her chest pain is under control. Cardiac exam within normal limits. (2) Hyperkalemia Current Visit: Yes Status: Resolved Assessment and plan: Yesterday EKG showed widened QRS. She was given Amp sodium bicarb given as well as D50, insulin and calcium gluconate. Patient went to emergent dialysis yesterday. Today her potassium is 4.4. Patient will undergo dialysis today too. (3) Hypertensive emergency Current Visit: Yes Status: Acute Assessment and plan: Patient's blood pressure continued to be controlled. Continue clonidine, hydralazine, lisinopril, nifedipine. (4) DVT prophylaxis Current Visit: No Status: Acute Assessment and plan: Haperin subcutaneously (5) Diabetes Current Visit: No Status: Acute Assessment and plan: Patient's hemoglobin 6.6. Her blood sugars are under control. We will continue her insulin regimen. Patient is also on her throat appointment for chronic anemia secondary to renal failure. Qualifiers: Diabetes mellitus type: type 1 Diabetes mellitus complication status: with circulatory complication Diabetes mellitus complication detail: with other circulatory complications Qualified Code(s): E10.59 - Type 1 diabetes mellitus with other circulatory complications (6) CAD (coronary artery disease) Current Visit: No Status: Chronic Assessment and plan: Patient had a left heart catheter in 03/13 with a stent placement and left heart catheter on 05/13 with 3 stent placement. Currently she is on parasugerl, statin, aspirin, beta keesha. We will continue this. Patient does not complain of any chest pain currently. Qualifiers: Coronary Disease-Associated Artery/Lesion type: [place] artery [place] vs. transplanted heart: [place] heart Associated angina: without angina Qualified Code(s): I25.10 - Atherosclerotic heart disease of [place] coronary artery without angina pectoris (7) ESRD (end stage renal disease) Current Visit: No Status: Chronic Assessment and plan: Patient is on Wednesday dialysis. Nephrology on board. She will receive dialysis today. - Subjective Interval history: 36 y/o F admitted for HTN emergency and CP. Yesterday patient was started on nitro drip 2nd to 04/06 chest pain. At that time EKG did not show ischemic changes. She had hyperkalemia of 7.7 underwent urgent dialysis and was given insulin, bicarb, calcium gluconate. Her potassium is 4.4. This morning nitro drip is d/c and her BP is stable around 150/90. Patient says she has chest pain thats /10. She denies sob. She does compain of chronic back pain and abdominal pain. - Constitutional Vitals: Temp Pulse Resp BP Pulse Ox 98.2 F 93 18 150/86 95 08/17/16 08:00 08/17/16 08:00 08/17/16 08:00 08/17/16 08:00 08/17/16 08:00 General appearance: Present: cooperative, A&O X 3 - Head Head exam: Present: atraumatic, normocephalic - Eye Eye exam: Present: PERRL, conjuntiva pink, sclera anicteric - Neck Neck exam general surgery: Present: supple, trachea midline. Absent: lymphadenopathy - Respiratory Respiratory exam: Present: CTAB. Absent: accessory muscle use, rales, rhonchi, wheezes - Cardiovascular Cardiovascular exam: Present: RRR, +S1, +S2. Absent: diastolic murmur, gallop, rubs, systolic murmur - GI/Abdominal GI/Abdominal exam: Present: normal bowel sounds, tenderness, no peritoneal signs. Absent: distended Additional comments: mild diffuse - Extremities Exam Extremities exam: Present: warm, radial pulses palpable and symetrical. Absent : calf tenderness, cyanotic, pedal edema Additional comments: b/l foot amputation - Neurological Exam Neurological exam: Present: CN II-XII intact, oriented X3, no focal deficits. Absent: pronater drift, facial droop, speech deficit - Skin Skin exam: Present: dry, intact Internal Medicine: Result - Labs CBC & Chem 7: 08/16/16 04:18 08/17/16 04:10 Labs: BMP 08/17/16 04:10 Sodium 133 L Potassium 4.4 D Chloride 90 L Carbon Dioxide 28 BUN 48 H D Creatinine 6.23 H Glucose 174 H Calcium 8.2 L Liver Function 08/17/16 Range/Units 04:10 Albumin 2.9 L (3.5-5.0) g/dL Consult Discharge Plan - Plan Referrals: Colt Espinoza MD [Primary Care Provider] - 08/18/16 10:45 am <Elijah Gonzalez - Last Filed: 08/17/16 18:35> Date of Encounter: 08/17/16 - Assessment and plan (1) Hyperkalemia Current Visit: Yes Status: Resolved (2) Chest pain Current Visit: No Status: Acute Qualifiers: Chest pain type: precordial pain Qualified Code(s): R07.2 - Precordial pain (3) Hypertensive emergency Current Visit: Yes Status: Acute (4) Diabetes Current Visit: No Status: Chronic Qualifiers: Diabetes mellitus type: type 1 Diabetes mellitus complication status: with kidney complications Diabetes mellitus complication detail: with chronic kidney disease Chronic kidney disease stage: on chronic dialysis Qualified Code(s): E10.22 - Type 1 diabetes mellitus with diabetic chronic kidney disease ; N18.6 - End stage renal disease; Z99.2 - Dependence on renal dialysis (5) Gastroparesis Current Visit: No Status: Chronic (6) Insulin dependent diabetes mellitus Current Visit: No Status: Chronic - Constitutional Vitals: Temp Pulse Resp BP Pulse Ox 98.2 F 86 18 157/86 95 08/17/16 17:19 08/17/16 17:19 08/17/16 17:19 08/17/16 17:19 08/17/16 17:19 Internal Medicine: Result - Labs CBC & Chem 7: 08/16/16 04:18 08/17/16 04:10 Labs: BMP 08/17/16 04:10 Sodium 133 L Potassium 4.4 D Chloride 90 L Carbon Dioxide 28 BUN 48 H D Creatinine 6.23 H Glucose 174 H Calcium 8.2 L Liver Function 08/17/16 Range/Units 04:10 Albumin 2.9 L (3.5-5.0) g/dL - Attending Attestation I examined this patient and my medical decision-making was reviewed with the Resident Physician on 08/17/16. I agree with the documented findings, disposition and treatment plan as described except to the extent set forth below. Ms. Benavidez is currently admitted for hypertensive emergency and chest pain. She remains moderate to high risk due to potential for worsening cardiac status. Ms. Benavidez has no new complaints today. She is to have dialysis. Nitro drip off. Exam Alert. Comfortable Heart reg No wheeze I/P 1. Chest pain 2. Hypertensive emergency 3. ESRD 4. Hyperkalemia - resolved Further diagnoses and plan as above.
[2016-08-17] MEDS: Lisinopril 20 MG TABLET PO SCH ×2 (11:26→21:24)
[2016-08-17] MEDS: Isosorbide MONOnitrate (24 HR) 60 MG TAB.ER.24H PO SCH (11:26)
[2016-08-17] MEDS: NIFEdipine XL (24 HR) 30 MG TAB.ER.24 PO SCH (11:26)
[2016-08-17] MEDS: Erythromycin Susp 200 MG/5 ML UDC PO SCH ×2 (12:07→17:25)
[2016-08-17] MEDS ORDERED: *HR* Heparin 10,000 UNIT/10 ML VIAL IV PRN (12:21)
[2016-08-17] MEDS ORDERED: 0.9 % Sodium Chloride 250 ML IV PRN (12:21)
--- NOTE | 2016-08-17 12:48 | Nephrology Progress Note ---
Date of Encounter: 08/17/16 Time of Encounter: 12:40 - Assessment and Plan (1) ESRD (end stage renal disease) Current Visit: No Status: Chronic Dysuria/hematuria, urine culture reordered. HD today, keeping MWF schedule. Orders given. Subjective Principal diagnosis: Chest pain Interval history: Sitting up in bed. States not feeling well. Lunch half eaten. Objective - Vital Signs Vital signs: Vital Signs Temp Pulse Resp BP Pulse Ox 08/17/16 12:00 98.4 F 92 18 196/102 96 08/17/16 08:00 98.2 F 93 18 150/86 95 08/17/16 05:04 98.9 F 80 15 142/82 98 08/17/16 04:27 142/82 08/16/16 21:44 98.8 F 95 18 153/85 95 08/16/16 16:57 184/97 08/16/16 16:35 20 178/98 08/16/16 16:25 20 178/98 08/16/16 16:20 181/96 08/16/16 16:05 172/98 08/16/16 16:00 94 16 200/100 08/16/16 15:50 184/94 08/16/16 15:35 173/97 08/16/16 15:20 187/98 08/16/16 15:05 159/90 08/16/16 14:50 175/99 08/16/16 14:35 154/88 08/16/16 14:20 179/97 08/16/16 14:05 194/102 08/16/16 13:50 20 189/105 08/16/16 13:35 20 150/100 Intake and Output 08/16/16 08/17/16 08/17/16 23:59 07:59 15:59 Intake Total 600 / 600 100 / 100 Output Total 5200 / 5200 Balance -4600 / -4600 100 / 100 Intake: IV Fluids 100 / 100 Nitroglycerin 25 mg In 100 / 100 250 ml @ 5 MCG/MIN 3 mls/ hr IVC .Q24H [facility] Rx#: [id number] Oral 0 / 0 Intake, Rinseback and 600 / 600 Flushes Output: Total Dialysis Output 5200 / 5200 Other: Weight 101.4 kg Blood Glucose* 157 102 Hemodialysis Net Fluid 2000 Removed (mL) Patient Weight 08/17/16 23:59 Weight 101.4 kg - General Appearance General appearance: Present: well-developed, well-nourished, appears started age EENT: Present: mucous membranes moist Neck: Present: no JVD Respiratory: Present: clear Cardiology: Present: no edema, regular rate, regular rhythm Additional Comments: right BKA Gastrointestinal: Present: normoactive bowel sounds, no tenderness Integumentary: Present: warm and dry Neurologic: Present: alert and oriented x3 Psychiatric: Present: mood/affect appropriate, cooperative - Lab 08/16/16 04:18 08/17/16 04:10 Most recent lab results Calcium 8.2 mg/dL (8.6-10.8) L 08/17/16 04:10 Phosphorus 6.7 mg/dL (2.3-4.7) H 08/17/16 04:10 Consult Discharge Plan - Plan Referrals: Colt Espinoza MD [Primary Care Provider] - 08/18/16 10:45 am
[2016-08-17] MEDS ORDERED: Acetaminophen 325 MG TABLET PO PRN (15:03)
[2016-08-17] MEDS ORDERED: *HR* OxyCODONE Immed Rel 5 MG TABLET PO PRN (15:03)
[2016-08-17] MEDS: Insulin DETEMIR 100 UNIT/ML X5UNITS SQ SCH (21:24)
[2016-08-17] MEDS: CloNIDine Patch 0.3 MG PATCH (WEEKLY) TP SCH (21:24)
[2016-08-18] MEDS: *HR* Morphine 2 MG/ML SYRINGE IVP PRN ×4 (01:15→11:50)
[2016-08-18] MEDS: *HR* Promethazine 25 MG/ML VIAL IVP PRN ×3 (01:43→10:34)
[2016-08-18 05:11] LABS: Basophils % 0.3 %; Eosinophils # 0.2 K/mcL (0.0-0.6); Eosinophils % 2.9 %; Hematocrit 25.3 % (35.3-44.9); Hemoglobin 7.4 g/dL (11.5-15.4); Immature Granulocytes % 0.7 % (0-4); Lymphocytes % 15.8 %; Mean Corpuscular HGB Conc 29.2 g/dL (31.6-35.5); Mean Corpuscular Hemoglobin 26.5 pg (28.0-33.3); Mean Corpuscular Volume 90.7 fL (83.0-100.0); Mean Platelet Volume 10.2 fL (9.4-12.4); Monocytes # 0.5 K/mcL (0.0-1.3); Monocytes % 8.8 %; Neutrophils # 4.4 K/mcL (1.6-8.9); Platelet Count 278 K/mcL (140-400); Red Blood Count 2.79 M/mcL (3.82-4.97); Red Cell Distribution Width 17.1 % (11.5-14.5); Segmented Neutrophils % 71.5 %
[2016-08-18 05:33] LABS: Calcium 8.2 mg/dL (8.6-10.8); Potassium 4.3 mEq/L (3.5-4.5)
[2016-08-18] MEDS: *HR* Heparin 5,000 UNIT/ML VIAL SQ SCH (06:57)
[2016-08-18 08:02] VITALS: BP 157/86
--- NOTE | 2016-08-18 08:22 | Nephrology Progress Note ---
Date of Encounter: 08/18/16 Time of Encounter: 08:20 - Assessment and Plan (1) ESRD (end stage renal disease) on dialysis Current Visit: No Status: Chronic Patient will continue to have dialysis every Wednesday. I am going to get her resumed on Reglan for her gastroparesis. She continues to be dependent on anti-emetics. (2) Chest pain Current Visit: No Status: Acute Qualifiers: Chest pain type: chest pain on breathing Qualified Code(s): R07.1 - Chest pain on breathing; R07.81 - Pleurodynia (3) Hypertensive urgency Current Visit: No Status: Acute Subjective Principal diagnosis: Chest pain Interval history: The patient reports that her chest pain is gone. However she continues to experience nausea vomiting and decreased ability to eat. She says this is just as bad as when she was admitted to the hospital. She has not been on Reglan here in the hospital symmetrical head and order that. Objective - Vital Signs Vital signs: Vital Signs Temp Pulse Resp BP Pulse Ox 08/18/16 08:00 97.8 F 87 18 157/86 97 08/18/16 01:05 98.3 F 86 18 175/96 98 08/17/16 20:43 98.5 F 85 18 151/85 97 08/17/16 17:19 98.2 F 86 18 157/86 95 08/17/16 16:33 98 F 22 120/69 08/17/16 16:30 126/67 08/17/16 16:15 134/72 08/17/16 15:45 130/75 08/17/16 15:15 126/76 08/17/16 14:45 144/78 08/17/16 14:15 143/80 08/17/16 13:45 162/86 08/17/16 13:30 97 F L 22 132/86 08/17/16 12:00 98.4 F 92 18 196/102 96 Intake and Output 08/17/16 08/18/16 08/18/16 23:59 07:59 15:59 Intake Total 240 / 240 240 / 240 Output Total 2900 / 2900 Balance -2660 / -2660 240 / 240 Intake: Oral 240 / 240 240 / 240 Output: Urine 300 / 300 Total Dialysis Output 2600 / 2600 Other: Meal Dinner Percent of Meal Consumed 100% # Voids 0 0 Blood Glucose* 131 69 Hemodialysis Net Fluid 2000 Removed (mL) - General Appearance Exam: Patient is alert and oriented. She is in no acute distress. Lungs much breath sounds otherwise clear. Heart regular rate and rhythm. Abdomen is soft. There is no tenderness. There is a tunnel dialysis catheter in the right chest. - Lab 08/18/16 04:25 08/18/16 04:25 Most recent lab results Calcium 8.2 mg/dL (8.6-10.8) L 08/18/16 04:25 Phosphorus 6.7 mg/dL (2.3-4.7) H 08/17/16 04:10 Consult Discharge Plan - Plan Referrals: Colt Espinoza MD [Primary Care Provider] - 08/18/16 10:45 am
[2016-08-18] MEDS: Insulin LISPRO 300 UNITS/3 ML VIAL SQ SCH (08:26)
--- NOTE | 2016-08-18 09:11 | Discharge Summary ---
<Tj Good - Last Filed: 08/18/16 10:53> Date of Encounter: 08/18/16 Time of Encounter: 09:06 - Discharge Diagnosis (1) Chest pain, rule out acute myocardial infarction Priority: Primary Status: Acute (2) Hyperkalemia Priority: Secondary Status: Resolved (3) Hypertensive emergency Priority: Secondary Status: Acute (4) DVT prophylaxis Priority: Secondary Status: Acute (5) Diabetes Priority: Secondary Status: Acute Qualifiers: Diabetes mellitus type: type 1 Diabetes mellitus complication status: with circulatory complication Diabetes mellitus complication detail: with other circulatory complications Qualified Code(s): E10.59 - Type 1 diabetes mellitus with other circulatory complications (6) CAD (coronary artery disease) Priority: Secondary Status: Chronic Qualifiers: Coronary Disease-Associated Artery/Lesion type: [place] artery [place] vs. transplanted heart: [place] heart Associated angina: without angina Qualified Code(s): I25.10 - Atherosclerotic heart disease of [place] coronary artery without angina pectoris (7) ESRD (end stage renal disease) Priority: Secondary Status: Chronic - Discharge Medications Prescriptions: Metoclopramide [Reglan] 5 mg PO QIDAC #30 tablet Home Medications: Insulin DETEMIR [Levemir] 80 unit SQ HS [id number] 12/18/15 [Rx] Aspirin 81 mg PO DAILY #30 tab.chew 12/22/15 [Rx] HYDROcodone/Acet 10/325 mg [[place] 10-325 mg] 1 tab PO QID PRN 01/21/16 [History] Darbepoetin [Aranesp] 60 mcg SQ QWEEK syringe 01/23/16 [Rx] Metoprolol [Lopressor] 25 mg PO BID 30 Days 01/26/16 [Rx] ClonazePAM [Klonopin] 2 mg PO BID PRN 04/20/16 [History] Metoclopramide [Reglan] 10 mg PO Q6HR PRN 04/20/16 [History] Venlafaxine XR (24 HR) [Effexor XR] 37.5 mg PO HS 04/20/16 [History] Insulin ASPART [NovoLOG] 2 - 10 unit SQ TIDWM 04/21/16 [History] Clopidogrel [Plavix] 75 mg PO DAILY tablet 04/23/16 [Rx] Lisinopril [Zestril] 20 mg PO BID 30 Days 04/23/16 [Rx] Omeprazole [PriLOSEC] 20 mg PO BID capsule. 04/23/16 [Rx] NIFEdipine [Nifedical Xl] 60 mg PO DAILY 06/30/16 [History] Isosorbide MONOnitrate (24 HR) [Imdur] 120 mg PO DAILY tab.er.24h 07/04/16 [Rx] Amlodipine [Norvasc] 5 mg PO DAILY 08/12/16 [History] Atorvastatin [Lipitor] 40 mg PO DAILY 08/12/16 [History] Carvedilol 12.5 mg PO BID 08/12/16 [History] CloNIDine [Clonidine] 0.3 mg TP Q5D 08/12/16 [History] Metoclopramide [Reglan] 5 mg PO QIDAC #30 tablet 08/18/16 [Rx] Allergies/Adverse Reactions: Allergies Amoxicillin Allergy (Verified 04/21/16 08:16) Hives ondansetron [From Zofran (as hydrochloride)] Adverse Reaction (Verified 10:04) Vomiting Procedures/tests Complete & Pending: Procedures Performed prior 72 hours Category Date Time Status ECG 12 lead ECG [ECG] Stat Y 08/16/16 09:35 Ordered Date of admission: 08/13/16 13:30 Primary care physician: Colt Espinoza MD Consults: 08/14/16 10:15 Consult to Dialysis [CONS] ONCE 08/14/16 17:04 Consult to Occupational Therapy [CONS] Routine Comment: Evaluate, develop and implement POC Consult to Physical Therapy [CONS] Routine Comment: Evaluate, develop and implement POC Consult to Call Center Assistant [CONS] Routine Reason for SW Consult: Poor self manage. 08/16/16 05:55 Consult to Invasive Line Access Team [CONS] Routine Reason for Consult: Need for labs Line Type: EPIV 08/17/16 12:30 Consult to Dialysis [CONS] ONCE Discharging clinician: Tj Good Anticipated date of discharge: 08/18/16 - Patient Status Disposition: Home, Self-Care Condition: Fair Functional capacity at discharge: wheelchair bound Overall status at discharge: patient is progressing back to baseline - Discharge Instructions Instructions: Chest Pain (DC), Acute Kidney Injury (DC), Acute Kidney Injury ( GEN), Urinary Tract Infection in Women (DC), Hemodialysis (DC), Hemodialysis ( GEN), Dialysis Diet (DC), Dialysis Diet (GEN), Diabetes Mellitus Type 2 in Adults (DC), Chronic Hypertension (DC), Anemia (GEN), Pneumonia (DC), Cigarette Smoking and Your Health, Clean Up Helper 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 Azul is a 36-year-old female with a history of type 1 diabetes, end-stage renal disease with dialysis, anemia, coronary artery disease, gastroparesis who presented with chief complaint of nausea and vomiting 3-4 days before admission. She stated that she had not taken any of her by mouth medications. In the ER patient arrived with sharp midsternal chest pain and pressure with radiation to upper abdomen below bilateral breasts and around mid back. Patient took 2 baby aspirins and attempted to take her blood pressure which did not read. Patient's blood pressure was in the systolic 200s. She was given hydralazine 10 mg IVP and her blood pressure decreased to 175/90. After patient was admitted she was started on a Cardene drip at 5 mg an hour. Even though she had nausea and vomiting as a chief complaint patient 895% of her meal in the ER. Patient had a slight elevations of troponins. Cardiology was consult to and an echocardiogram was ordered. Echo demonstrated a normal ejection fraction. Cardene drip was stopped. And patient was restarted on Lopressor and lisinopril and Imdur. GI was consulted due to bright red blood per rectum. There is evaluation indicated the patient had a anal fissure. This was treated with lidocaine/diltiazem cream. As patient was on end-stage renal disease, she was scheduled for her Wednesday dialysis. Nephrology also started patient on Aranesp due to chronic anemia. Nephrology was concerned about UTI. Patient underwent urine culture did not grow any organism. 08/16/16 patient had 10 out of 10 chest pain, she was pale and sweating. Her blood pressure at that time was 194/107. EKG was redone which did not show any ischemic changes. Patient was given sublingual nitroglycerin. , And Compazine. She was also started on a nitro drip. After this patient's chest pain improved. Repeat troponin was 0.05. Furthermore, patient had potassium of 7.7 on 08/16/16. EKG showed widening of QRS. Patient was given an amp of sodium bicarbonate, insulin with D50 and calcium gluconate and sent to emergent dialysis. Afterwards patient's potassium had decreased to 4.4. Nephrology restarted patient on Reglan for her gastroparesis. Today patient's blood pressure is averaging systolic 150s. Her vitals are stable. She denies any chest pain, shortness of breath. Patient states that she would like a referral to for colonoscopy. This will have to be done by her PCP. Patient has good oral intake. 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 She is ready for discharge. Patient has continuity of care and home health. She will follow-up with her PCP in the next 7 days. Hospital course: Ms. Benavidez is a 36 year old female - Time Spent with Patient Total time spent providing and/or coordinating discharge services: - Constitutional Vitals: Temp Pulse Resp BP Pulse Ox 97.8 F 87 18 157/86 97 08/18/16 08:00 08/18/16 08:00 08/18/16 08:00 08/18/16 08:00 08/18/16 08:00 General appearance: Present: cooperative, A&O X 3 - Head Head exam: Present: atraumatic, normocephalic - Eye Eye exam: Present: PERRL, conjuntiva pink, sclera anicteric Pupils: Present: PERRL - Neck Neck exam general surgery: Present: supple, trachea midline. Absent: lymphadenopathy - Respiratory Respiratory exam: Present: CTAB. Absent: accessory muscle use, rales, rhonchi, wheezes - Cardiovascular Cardiovascular exam: Present: RRR, +S1, +S2. Absent: diastolic murmur, gallop, rubs, systolic murmur - GI/Abdominal GI/Abdominal exam: Present: normal bowel sounds, soft, no peritoneal signs. Absent: distended, tenderness - Extremities Exam Extremities exam: Present: warm, radial pulses palpable and symetrical. Absent : calf tenderness, cyanotic, pedal edema Additional comments: B/l lower extremity foot amputation. - Neurological Exam Neurological exam: Present: CN II-XII intact, oriented X3, no focal deficits. Absent: pronater drift, facial droop, speech deficit - Skin Skin exam: Present: dry, intact <Elijah Gonzalez - Last Filed: 08/18/16 19:05> Date of Encounter: 08/18/16 - Discharge Diagnosis (1) Hypertensive emergency Priority: Primary Status: Acute (2) Chest pain Priority: Secondary Status: Acute Qualifiers: Chest pain type: precordial pain Qualified Code(s): R07.2 - Precordial pain (3) Hyperkalemia Status: Resolved (4) Diabetes Priority: Secondary Status: Chronic Qualifiers: Diabetes mellitus type: type 1 Diabetes mellitus complication status: with kidney complications Diabetes mellitus complication detail: with chronic kidney disease Chronic kidney disease stage: on chronic dialysis Qualified Code(s): E10.22 - Type 1 diabetes mellitus with diabetic chronic kidney disease ; N18.6 - End stage renal disease; Z99.2 - Dependence on renal dialysis (5) Gastroparesis Priority: Secondary Status: Chronic Date of admission: 08/13/16 13:30 Primary care physician: Colt Espinoza MD Consults: 08/14/16 10:15 Consult to Dialysis [CONS] ONCE 08/14/16 17:04 Consult to Occupational Therapy [CONS] Routine Comment: Evaluate, develop and implement POC Consult to Physical Therapy [CONS] Routine Comment: Evaluate, develop and implement POC Consult to Call Center Assistant [CONS] Routine Reason for SW Consult: Poor self manage. 08/16/16 05:55 Consult to Invasive Line Access Team [CONS] Routine Reason for Consult: Need for labs Line Type: EPIV 08/17/16 12:30 Consult to Dialysis [CONS] ONCE Hospital course: Ms. Benavidez is a 36 year old female - Time Spent with Patient Total time spent providing and/or coordinating discharge services: 39min - Constitutional Vitals: Temp Pulse Resp BP Pulse Ox 97.8 F 87 18 157/86 97 08/18/16 08:00 08/18/16 08:00 08/18/16 08:00 08/18/16 08:00 08/18/16 08:00 - Attending Attestation I examined this patient and my medical decision-making was reviewed with the Resident Physician on 08/18/16. I agree with the documented findings, disposition and treatment plan as described except to the extent set forth below. Ms. Benavidez feels at baseline at this time. No new issues overnight. To be discharged today. Exam Alert. Comfortable Heart reg No wheeze Plan D/C home today with [facility] Pt afebrile and medically stable.
[2016-08-18] MEDS: NIFEdipine XL (24 HR) 30 MG TAB.ER.24 PO SCH (09:17)
[2016-08-18] MEDS: Isosorbide MONOnitrate (24 HR) 60 MG TAB.ER.24H PO SCH (09:18)
[2016-08-18] MEDS: Aspirin 81 MG TAB.CHEW PO SCH (09:18)
[2016-08-18] MEDS: Venlafaxine XR (24 HR) 37.5 MG CAP.ER.24H PO SCH (09:18)
[2016-08-18] MEDS: Erythromycin Susp 200 MG/5 ML UDC PO SCH ×2 (09:18→11:50)
[2016-08-18] MEDS: Lisinopril 20 MG TABLET PO SCH (09:18)
--- NOTE | 2016-08-18 09:26 | Physician Discharge Referral ---
Addendum entered and electronically signed by Tj Good DO 16:38: Patient also needs nursing. Original Note: Home Health/Hosp Referral Info Transfer to: Home Health Attending Provider: Dr. Good Provider in Charge Post Discharge: PCP - Diagnosis (1) Chest pain, rule out acute myocardial infarction Priority: Primary Status: Acute (2) Hyperkalemia Priority: Secondary Status: Resolved (3) Hypertensive emergency Priority: Secondary Status: Acute (4) DVT prophylaxis Priority: Secondary Status: Acute (5) Diabetes Priority: Secondary Status: Acute (6) CAD (coronary artery disease) Priority: Secondary Status: Chronic (7) ESRD (end stage renal disease) Priority: Secondary Status: Chronic - Respiratory Orders Smoking Cessation: Smoking cessation has been advised. For more information, call the [place] Tobacco Quit Line at 8-670-FVAO-NOW. - Diet/Nutrition Diet/Nutrition Orders: Renal - Activity Activity Orders: Chair (wheel chair) - Services Needed Following services are medically necessary services: Home Health Aide, Physical Therapy - Transfer Medications Prescriptions: Metoclopramide [Reglan] 5 mg PO QIDAC #30 tablet Home Medications: Insulin DETEMIR [Levemir] 80 unit SQ HS [id number] 12/18/15 [Rx] Aspirin 81 mg PO DAILY #30 tab.chew 12/22/15 [Rx] HYDROcodone/Acet 10/325 mg [[place] 10-325 mg] 1 tab PO QID PRN 01/21/16 [History] Darbepoetin [Aranesp] 60 mcg SQ QWEEK syringe 01/23/16 [Rx] Metoprolol [Lopressor] 25 mg PO BID 30 Days 01/26/16 [Rx] ClonazePAM [Klonopin] 2 mg PO BID PRN 04/20/16 [History] Metoclopramide [Reglan] 10 mg PO Q6HR PRN 04/20/16 [History] Venlafaxine XR (24 HR) [Effexor XR] 37.5 mg PO HS 04/20/16 [History] Insulin ASPART [NovoLOG] 2 - 10 unit SQ TIDWM 04/21/16 [History] Clopidogrel [Plavix] 75 mg PO DAILY tablet 04/23/16 [Rx] Lisinopril [Zestril] 20 mg PO BID 30 Days 04/23/16 [Rx] Omeprazole [PriLOSEC] 20 mg PO BID capsule. 04/23/16 [Rx] NIFEdipine [Nifedical Xl] 60 mg PO DAILY 06/30/16 [History] Isosorbide MONOnitrate (24 HR) [Imdur] 120 mg PO DAILY tab.er.24h 07/04/16 [Rx] Amlodipine [Norvasc] 5 mg PO DAILY 08/12/16 [History] Atorvastatin [Lipitor] 40 mg PO DAILY 08/12/16 [History] Carvedilol 12.5 mg PO BID 08/12/16 [History] CloNIDine [Clonidine] 0.3 mg TP Q5D 08/12/16 [History] Metoclopramide [Reglan] 5 mg PO QIDAC #30 tablet 08/18/16 [Rx] Allergies/Adverse Reactions: Allergies Amoxicillin Allergy (Verified 04/21/16 08:16) Hives ondansetron [From Zofran (as hydrochloride)] Adverse Reaction (Verified 10:04) Vomiting Certification: Further, I certify that my clinical findings support that this patient is homebound (i.e. absences from home require considerable and taxing effort and are for medical reasons or congregation services or infrequently or short duration when for other reasons) because: Homebound Reason: Patient requires assistance of a person or device to safely leave home, Leaving home requires considerable and taxing effort due to condition Attestation: My signature below is to certify that this patient is under my care and that I, or nurse practitioner, or a physician's unit assistant working with me, has a face-to -face encounter with this patient.
== END 2016-08-18 12:26 | disposition home or self-care (01) | DRG 304 ==
LOC: 2ANU 11:23 → EMEROO 11:23 → SUATTDRO 16:04 → 2ANU 17:20 → 2NNU 08-13 00:16 → SUATTDRO 08-13 13:30 → 2NENU 08-15 16:13
PROVIDERS: ADMIT Internal Medicine; ATTEND Internal Medicine

== ENCOUNTER 2016-11-11 06:28 | Inpatient (IN) ==
[2016-11-11] MEDS ORDERED: *HR* Promethazine 25 MG/ML VIAL IM ONE ×2 (06:46→08:23)
--- NOTE | 2016-11-11 06:50 | Emergency Department Note ---
Disposition Clinical Impression: Gastroenteritis, Hyperkalemia, Elevated troponin, Benign hypertension with ESRD (end-stage renal disease) Type 1 diabetes mellitus Qualifiers: Diabetes mellitus complication status: with kidney complications Diabetes mellitus complication detail: with chronic kidney disease Chronic kidney disease stage: on chronic dialysis Qualified Code(s): E10.22 - Type 1 diabetes mellitus with diabetic chronic kidney disease; N18.6 - End stage renal disease; Z99.2 - Dependence on renal dialysis Nausea and vomiting Qualifiers: Vomiting type: unspecified Vomiting Intractability: intractable Qualified Code( s): R11.2 - Nausea with vomiting, unspecified GI bleed Qualifiers: GI bleed type/associated pathology: unspecified gastrointestinal hemorrhage type Qualified Code(s): K92.2 - Gastrointestinal hemorrhage, unspecified Disposition: Admitted As Inpatient Condition: Fair Time of Disposition: 14:11 Nausea/Vomiting/Diarrhea HPI - General Chief complaint: ED Nausea/Vomiting/Diarrhea Stated complaint: n/v Time Seen by Provider: 11/11/16 06:46 Source: patient Mode of arrival: EMS Limitations: physical limitation Nursing Notes Reviewed: Yes Vital Signs Reviewed: Yes - History of Present Illness HPI Narrative: Patient brought to the emergency department by EMS squad. She is having nausea vomiting excessive diarrhea. She states that she was supposed to collect a stool sample week ago to be tested for C. difficile but has been unable to do that up to this point. She is having a large amount of foul-smelling diarrhea at this time complaining of nausea and abdominal pain. Her past medical history is significant for chronic kidney disease she is a dialysis patient. She states that typically she has a PICC line at this time it is not functional. She is also having high blood pressure at this time. She has been unable take any of her medication due to the abdominal discomfort. She is requesting that we start a PICC line on her at this time we will look with the ultrasound to see if we can gain IV access. Plan will be to give her Phenergan IM and then also was the nausea dissipates them to attempt to get her blood pressure medication and. Pt Subjective Complaint: nausea, diarrhea, abdominal pain Onset (ago): week(s) (1) Description of emesis: watery, foul-smelling Description of Diarrhea: water Associated Abdominal Pain: Yes If pain, Location of pain: diffuse Severity: severe Severity scale (1-10): 10 Quality: sharp, constant Consistency: Worsening Improves with: nothing Worsens with: nonthing Associated symptoms: Reports: loss of appetite - Related Data Home Medications Medication Instructions Recorded Confirmed HYDROcodone/Acet 10/325 mg [[place] 1 tab PO QID PRN 01/21/16 11/11/16 10-325 mg] Metoclopramide [Reglan] 10 mg PO Q6HR PRN 04/20/16 11/11/16 Venlafaxine XR (24 HR) [Effexor XR] 37.5 mg PO HS 04/20/16 11/11/16 clonazePAM [Klonopin] 2 mg PO BID PRN 04/20/16 11/11/16 Insulin ASPART [NovoLOG] 2 - 10 unit SQ TIDWM 04/21/16 11/11/16 NIFEdipine [Nifedical Xl] 60 mg PO DAILY 06/30/16 11/11/16 Atorvastatin [Lipitor] 40 mg PO DAILY 08/12/16 11/11/16 Carvedilol 12.5 mg PO BID 08/12/16 11/11/16 amLODIPine [Norvasc] 5 mg PO DAILY 08/12/16 11/11/16 cloNIDine [Clonidine] 0.3 mg TP Q5D 08/12/16 11/11/16 Previous Rx's Medication Instructions Recorded Insulin DETEMIR [Levemir] 80 unit SQ HS [id number] 12/18/15 Aspirin 81 mg PO DAILY #30 tab.chew 12/22/15 Darbepoetin [Aranesp] 60 mcg SQ QWEEK syringe 01/23/16 Metoprolol [Lopressor] 25 mg PO BID 30 Days 01/26/16 Clopidogrel [Plavix] 75 mg PO DAILY tablet 04/23/16 Lisinopril [Zestril] 20 mg PO BID 30 Days 04/23/16 Omeprazole [PriLOSEC] 20 mg PO BID capsule.dr 04/23/16 Isosorbide MONOnitrate (24 HR) 120 mg PO DAILY tab.er.24h 07/04/16 [Imdur] Metoclopramide [Reglan] 5 mg PO QIDAC #30 tablet 08/18/16 Promethazine [Phenergan] 12.5 mg PO Q6HR #10 tablet 08/23/16 Promethazine [Phenergan] 12.5 mg RC Q6HR #10 supp.rect 08/23/16 Allergies Allergy/AdvReac Type Severity Reaction Status Date / Time Amoxicillin Allergy Hives Verified 11/11/16 08:42 ondansetron AdvReac Vomiting Verified 11/11/16 08:42 [From Zofran (as hydrochloride)] All systems ED: reviewed and negative except as stated. Constitutional: Denies: fever, chills, weakness, weight change Cardiovascular: Denies: chest pain, palpitations, dyspnea on exertion, orthopnea Gastrointestinal: Reports: abdominal pain, nausea, vomiting, diarrhea Musculoskeletal: Reports: other (BKA on the right ) Past Medical History - Past Medical History Attestation: Yes The following information was validated with the patient. 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 - Social History Smoking Status: Never smoker Smokeless Tobacco Status: No Alcohol use: Reports: none Drug use: Reports: none Physical Exam - General Limitations: no limitations, physical limitation General appearance: alert, in no apparent distress - Head Head exam: atraumatic, normocephalic, normal inspection - Eye Eye exam: Present: normal appearance, PERRL, EOMI - ENT ENT exam: normal exam, normal oropharynx, mucous membranes moist - Neck Neck exam: Present: normal inspection, full ROM, trachea midline - Chest Chest inspection: Present: normal inspection, symmetric chest wall rise - Respiratory Respiratory exam: Present: normal lung sounds bilaterally - Cardiovascular Cardiovascular exam: Present: regular rate, normal rhythm, normal heart sounds - Abdominal Exam Abdominal exam: Present: tenderness, hyperactive bowel sounds Abdominal tenderness: Present: diffuse - Extremities Exam Extremities exam: Present: normal inspection, full ROM. Absent: tenderness, pedal edema - Expanded Lower Extremity Exam Knee exam: Present: other (BKA on the right ) - Back Exam Back exam: Present: normal inspection, full ROM. Absent: tenderness - Neurological Exam Neurological exam: Present: alert, oriented X3 - Psychiatric Psychiatric exam: Present: anxious - Skin Skin exam: Present: warm, dry, intact, normal color Course - Consultations Consultation #1: Advised Dr. Biggs, hospitalist of need to admit patient to the hospital for GI Bleed, intractable vomiting, abdominal pain. Also advised she may need surgical consult for IV port access, currently has PICC line, but it is questionable the longevity of this access. He requested we place a call to nephrology for evaluation. He states they will accept her, and will come to the ED to evaluate patient. Time: 10:26 Consultation #2: Advised Dr. Aly of patient's admission to the hospital and that she was scheduled for dialysis today. Advised him of her labs, and positive GI bleed. Time: 10:50 Vital Signs Temperature 98.1 F 11/11/16 06:29 Pulse Rate 97 11/11/16 06:29 Respiratory Rate 18 11/11/16 06:29 Blood Pressure 237/111 11/11/16 06:29 O2 Sat by Pulse Oximetry 97 11/11/16 06:29 Temperature 98.1 F 11/11/16 06:29 Pulse Rate 110 11/11/16 12:28 Respiratory Rate 18 11/11/16 06:29 Blood Pressure 210/103 11/11/16 12:28 O2 Sat by Pulse Oximetry 100 11/11/16 12:28 Oxygen Delivery Oxygen Delivery Nasal Cannula Nausea/Vomiting/Diarrhea - Lab Data Result diagrams: 11/11/16 09:34 11/11/16 09:34 Lab Results 11/11/16 11/11/16 11/11/16 Range/Units 07:38 07:38 09:34 WBC 9.6 (4.3-11.1) K/mcL RBC 4.32 (3.82-4.97) M/mcL Hgb 12.4 (11.5-15.4) g/dL Hct 38.5 (35.3-44.9) % MCV 89.1 (83.0-100.0) fL MCH 28.7 (28.0-33.3) pg MCHC 32.2 (31.6-35.5) g/dL RDW 14.3 (11.5-14.5) % Plt Count 214 (140-400) K/mcL MPV 10.3 (9.4-12.4) fL Seg Neutrophils % 94.0 % Band Neutrophils % 2.0 (0-4) % Lymphocytes % 4.0 % Neutrophils # 9.2 H (1.6-8.9) K/mcL Lymphocytes # 0.4 L (0.6-4.6) K/mcL Platelet Estimate Normal (Normal) Sodium (136-145) mEq/L Potassium (3.5-4.5) mEq/L Chloride (98-109) mEq/L Carbon Dioxide (19-29) mEq/L BUN (7-20) mg/dL Creatinine (0.57-1.11) mg/dL Est GFR ( Amer) (> 60) Est GFR (Non-Af Amer) (> 60) BUN/Creatinine Ratio (6-26) Glucose (70-99) mg/dL Calculated Osmolality (280-300) Lactic Acid (0.5-2.2) mmol/L Calcium (8.6-10.8) mg/dL Total Bilirubin (0.2-1.2) mg/dL AST (5-34) Units/L ALT (0-55) Units/L Alkaline Phosphatase (38-126) Units/L Creatine Kinase (29-168) Units/L Troponin I (0-0.03) ng/mL Serum Total Protein (6.0-8.3) g/dL Albumin (3.5-5.0) g/dL Globulin (2.4-3.5) g/dL Albumin/Globulin Ratio (1.1-2.2) Stool Occult Blood Positive A (Negative) Stl C. diff Tox B Gene Negative (Negative) 11/11/16 11/11/16 11/11/16 Range/Units 09:34 09:34 09:34 WBC (4.3-11.1) K/mcL RBC (3.82-4.97) M/mcL Hgb (11.5-15.4) g/dL Hct (35.3-44.9) % MCV (83.0-100.0) fL MCH (28.0-33.3) pg MCHC (31.6-35.5) g/dL RDW (11.5-14.5) % Plt Count (140-400) K/mcL MPV (9.4-12.4) fL Seg Neutrophils % % Band Neutrophils % (0-4) % Lymphocytes % % Neutrophils # (1.6-8.9) K/mcL Lymphocytes # (0.6-4.6) K/mcL Platelet Estimate (Normal) Sodium 136 (136-145) mEq/L Potassium 6.3 H (3.5-4.5) mEq/L Chloride 96 L (98-109) mEq/L Carbon Dioxide 21 (19-29) mEq/L BUN 81 H (7-20) mg/dL Creatinine 8.91 H (0.57-1.11) mg/dL Est GFR ( Amer) 6 L (> 60) Est GFR (Non-Af Amer) 5 L (> 60) BUN/Creatinine Ratio 9 (6-26) Glucose 379 H (70-99) mg/dL Calculated Osmolality 322 H (280-300) Lactic Acid 1.0 (0.5-2.2) mmol/L Calcium 8.8 (8.6-10.8) mg/dL Total Bilirubin 0.7 (0.2-1.2) mg/dL AST 14 (5-34) Units/L ALT 18 (0-55) Units/L Alkaline Phosphatase 107 (38-126) Units/L Creatine Kinase 201 H (29-168) Units/L Troponin I 0.11 H* (0-0.03) ng/mL Serum Total Protein 8.9 H (6.0-8.3) g/dL Albumin 3.6 (3.5-5.0) g/dL Globulin 5.3 H (2.4-3.5) g/dL Albumin/Globulin Ratio 0.7 L (1.1-2.2) Stool Occult Blood (Negative) Stl C. diff Tox B Gene (Negative) Attestation Statement - Attestation Attestation: I examined this patient and my medical decision-making was reviewed with the SHELLFISH DREDGE OPERATOR/PA/Advanced Practice Nurse/Resident Physician. I agree with the documented findings, disposition and treatment plan as described except to the extent set forth below. Patient presents to emergency department vomiting and diarrhea. States she has had excessive diarrhea for 2 months. Denies antibiotics for states she was on some nystatin for thrush. Patient is a type I diabetic. States her sugars have been doing well and her last A1c was 6. On exam she has some diffuse abdominal tenderness. Actively vomiting. Plan. Obtaining a midline is patient is an extremely difficult patient to obtain vascular access on. Labs CT abdomen. Symptomatic care. Patient hyperkalemic. Calcium magnesium and insulin ordered. Nephrology is in consult at for dialysis. Admitted to medicine. 40 minutes of critical care exclusive of separately billable procedures.
[2016-11-11] MEDS ORDERED: Ketorolac 60 MG/2 ML VIAL IM ONE (06:54)
[2016-11-11] MEDS ORDERED: 0.9 % Sodium Chloride 500 ML IVC ONE (07:04)
[2016-11-11] MEDS ORDERED: *HR* HYDROmorphone 2 MG/ML SYRINGE IM ONE (08:15)
[2016-11-11] MEDS ORDERED: *HR* HYDROmorphone (PF) 1 MG/ML SYRINGE IM ONE (08:18)
[2016-11-11 09:48] LABS: Hematocrit 38.5 % (35.3-44.9); Hemoglobin 12.4 g/dL (11.5-15.4); Mean Corpuscular HGB Conc 32.2 g/dL (31.6-35.5); Mean Corpuscular Hemoglobin 28.7 pg (28.0-33.3); Mean Corpuscular Volume 89.1 fL (83.0-100.0); Mean Platelet Volume 10.3 fL (9.4-12.4); Platelet Count 214 K/mcL (140-400); Red Blood Count 4.32 M/mcL (3.82-4.97); Red Cell Distribution Width 14.3 % (11.5-14.5)
[2016-11-11 09:58] LABS: Albumin 3.6 g/dL (3.5-5.0); Albumin/Globulin Ratio 0.7 (1.1-2.2); Bilirubin,Total 0.7 mg/dL (0.2-1.2); Calcium 8.8 mg/dL (8.6-10.8); Globulin 5.3 g/dL (2.4-3.5); Potassium 6.3 mEq/L (3.5-4.5); Total Protein 8.9 g/dL (6.0-8.3)
[2016-11-11 10:16] LABS: Lymphocytes # 0.4 K/mcL (0.6-4.6); Neutrophils # 9.2 K/mcL (1.6-8.9); Platelet Estimate Normal (Normal)
[2016-11-11] MEDS ORDERED: Sodium Bicarbonate 50 MEQ/50 ML VIAL IVP ONE (10:25)
[2016-11-11] MEDS ORDERED: Calcium Gluconate 1,000 MG in D5% in Water 100 ML IVPB ONE (10:25)
[2016-11-11] MEDS ORDERED: Insulin Regular, Human 100 UNIT/ML SQ ONE (10:50)
[2016-11-11] MEDS ORDERED: Nitroglycerin 25 MG/250 ML INFUS..BTL IVC SCH (11:00)
[2016-11-11] MEDS ORDERED: *HR* Promethazine 25 MG/ML VIAL IVP PRN ×2 (11:26→20:33)
[2016-11-11] MEDS ORDERED: Dextrose Gel 15 GM PO PRN ×2 (11:37)
[2016-11-11] MEDS ORDERED: *HR* Dextrose 50 % in Water (Syg) 50 ML SYRINGE IVP PRN (11:37)
[2016-11-11] MEDS ORDERED: D5% in Water 1,000 ML IVC PRN (11:37)
--- NOTE | 2016-11-11 11:48 | Internal Med History&Physical ---
Date of Encounter: 11/11/16 Time of Encounter: 11:00 Assessment and Plan (1) Intractable nausea and vomiting Current visit: Yes Status: Acute 1 patient had a experiencing intractable nausea and vomiting has been unable to take medications eat she missed her dialysis today we will continue with antibiotics, clear liquids as tolerated 2 consult GI 3 we will give IV medications in place of oral for now 4 monitor electrolytes Qualifiers: Vomiting type: unspecified Qualified Code(s): R11.2 - Nausea with vomiting , unspecified (2) Hyperkalemia Current visit: Yes Status: Acute 1 patient's potassium 6.3. Patient given calcium gluconate as well as sodium bicarbonate consulted nephrology patient is to have dialysis today 2 continuous cardiac monitoring (3) Hypertensive urgency Current visit: Yes Status: Acute 1 patient's blood pressure systolic over 200 diastolic over 100. Patient given hydralazine IV 2 Will initiate on nitro drip titrating to keep systolic around 160 3 dialyzed patient (4) CAD (coronary artery disease) Current visit: No Status: Chronic 1 patient has history of CAD with stent placement 2 will continue with aspirin and Plavix Qualifiers: Coronary Disease-Associated Artery/Lesion type: [place] artery [place] vs. transplanted heart: pala heart Associated angina: without angina Qualified Code(s): I25.10 - Atherosclerotic heart disease of pala coronary artery without angina pectoris (5) DM type 1 (diabetes mellitus, type 1) Current visit: Yes Status: Chronic 1 patient has history of diabetes type 1 for sleep patient is unable to eat or drink at this time Accu-Cheks every 6 hours will administer sliding scale insulin 2 Diabetic diet as tolerated Qualifiers: Diabetes mellitus complication status: with kidney complications Diabetes mellitus complication detail: with chronic kidney disease Chronic kidney disease stage: on chronic dialysis Qualified Code(s): E10.22 - Type 1 diabetes mellitus with diabetic chronic kidney disease; N18.6 - End stage renal disease; Z99.2 - Dependence on renal dialysis (6) ESRD (end stage renal disease) on dialysis Current visit: Yes Status: Chronic 1 consult nephrology dialyzed patient today 2 avoid nephrotoxins 3 monitor intake and output daily weights (7) Gastroparesis Current visit: No Status: Chronic 1 we will continue with Reglan IV (8) Elevated troponin Current visit: Yes Status: Acute 1 first cardiac troponin 0.11 suspect related to recent illness as well as end- stage renal disease. We will continue to cycle troponins (9) DVT prophylaxis Current visit: No Status: Acute (10) Diarrhea Current visit: Yes Status: Acute 1 we will obtain GI stool panel 2 Immodium as needed 3 C diff is negative 4 monitor electrolytes Qualifiers: Diarrhea type: unspecified type Qualified Code(s): R19.7 - Diarrhea, unspecified Internal Medicine - H&P: HPI Chief complaint: Nausea vomiting diarrhea Admitted From: Emergency Dept Plans for Post Hospital Care: Home History of present illness: Ms. Benavidez is a 36 year old female extensive medical history including hypertension coronary artery disease with stent placement diabetes type 1 DVT left arm BKA CK D on hemodialysis gastroparesis. According to patient she has been experiencing nausea and vomiting over the past couple months and has seen GI as well as had several admissions. Presently being treated for gastroparesis. This past week patient has been experiencing increasing abdominal pain nausea vomiting as well as foul-smelling diarrhea. She has been unable to eat or take her medications. She is scheduled for hemodialysis today however unable to complete due to illness. She denies any chest pain shortness of breath fevers chills or sick contacts. She presented to the ER with the above complaints. Lab work obtained revealing elevated potassium 6.3 creatinine 8.9 stool was obtained C. difficile was negative stool occult was positive. EKG slight Tenting of T wave Patient's blood pressure was elevated systolic 200 systolic over 100 patient actively vomiting as well as experiencing loose stool. Patient was given pain medication as well as antiemetics. Nephrology was consult and for dialysis. Patient has been admitted for further workup and evaluation. Finn patient is dry heaving complaining of diffuse abdominal pain. Requesting pain medication as well as antimanic. Lung sounds are clear heart sounds S1-S2 with no rubs, clicks murmurs noted. Orders placed for calcium gluconate as well as sodium bicarbonate also ordered nitroglycerin drip. Patient has PICC line placed in right arm I reviewed this case with Dr. Biggs who agreed with plan Past Med Surg Social Fam HX - Past Medical History Medical history: coronary artery disease, diabetes, dialysis, hypertension, renal disease Psychiatric history: anxiety, depression - Past Surgical History Surgical History: hysterectomy, other - Social History Smoking Status: Never smoker Smokeless Tobacco Status: No Alcohol use: none Drug use: none - Family History Mother Adopted: No Family Member Ethnicity: Non- Living Status: Still Living Hx Family Cardiac Disorders: Yes (Father with coronary artery disease) Hx Family Respiratory Disorders: No Hx Family Cancer: Yes (Breast) Hx Family GI Disorders: No Hx Family Endocrine Disorder: Yes (Mother with dm) Hx Family Neuromuscular Disorders: No Hx Family Neurologic Disorders: No Hx Family HEENT Disorders: No Hx Family Autoimmune Disorders: No Internal Medicine - H&P: Meds Insulin DETEMIR [Levemir] 80 unit SQ HS [id number] 12/18/15 [Rx] Aspirin 81 mg PO DAILY #30 tab.chew 12/22/15 [Rx] HYDROcodone/Acet 10/325 mg [[place] 10-325 mg] 1 tab PO QID PRN 01/21/16 [History] Darbepoetin [Aranesp] 60 mcg SQ QWEEK syringe 01/23/16 [Rx] Metoprolol [Lopressor] 25 mg PO BID 30 Days 01/26/16 [Rx] Metoclopramide [Reglan] 10 mg PO Q6HR PRN 04/20/16 [History] Venlafaxine XR (24 HR) [Effexor XR] 37.5 mg PO HS 04/20/16 [History] clonazePAM [Klonopin] 2 mg PO BID PRN 04/20/16 [History] Insulin ASPART [NovoLOG] 2 - 10 unit SQ TIDWM 04/21/16 [History] Clopidogrel [Plavix] 75 mg PO DAILY tablet 04/23/16 [Rx] Lisinopril [Zestril] 20 mg PO BID 30 Days 04/23/16 [Rx] Omeprazole [PriLOSEC] 20 mg PO BID capsule. 04/23/16 [Rx] NIFEdipine [Nifedical Xl] 60 mg PO DAILY 06/30/16 [History] Isosorbide MONOnitrate (24 HR) [Imdur] 120 mg PO DAILY tab.er.24h 07/04/16 [Rx] Atorvastatin [Lipitor] 40 mg PO DAILY 08/12/16 [History] Carvedilol 12.5 mg PO BID 08/12/16 [History] amLODIPine [Norvasc] 5 mg PO DAILY 08/12/16 [History] cloNIDine [Clonidine] 0.3 mg TP Q5D 08/12/16 [History] Metoclopramide [Reglan] 5 mg PO QIDAC #30 tablet 08/18/16 [Rx] Promethazine [Phenergan] 12.5 mg PO Q6HR #10 tablet 08/23/16 [Rx] Promethazine [Phenergan] 12.5 mg RC Q6HR #10 supp.rect 08/23/16 [Rx] Allergies Amoxicillin Allergy (Verified 11/11/16 08:42) Hives ondansetron [From Zofran (as hydrochloride)] Adverse Reaction (Verified 08:42) Vomiting All Systems PM: A 10-system review of systems was performed and is negative for pertinent findings except as documented above in the HPI. - EENT Eyes: no change in vision, no discharge, no pain, no photophobia Nose, mouth and throat: no dysphagia, no nasal discharge, no neck pain, no sore throat - Cardiovascular Cardiovascular ROS IM: no chest pain, no diaphoresis, no dyspnea, no lightheadedness, no palpitations, no syncope - Respiratory Respiratory: no cough, no dyspnea, no wheezing, no excessive phlegm production - Gastrointestinal Gastrointestinal: abdominal pain, diarrhea, early satiety, nausea, vomiting - Genitourinary Genitourinary: no change in urinary stream, no dysuria, no flank pain, no hematuria - Musculoskeletal Musculoskeletal ROS IM: no numbness, no tingling - Integumentary Integumentary IM: no rash, no unusual bruising - Neurological Neurological ROS: no confusion, no convulsions, no focal weakness, no numbness, no tingling, no tremor(s) - Constitutional Vitals: Temp Pulse Resp BP Pulse Ox 98.1 F 109 18 223/16 100 11/11/16 06:29 11/11/16 11:27 11/11/16 06:29 11/11/16 11:27 11/11/16 11:27 General appearance: Present: A&O X 3, answers questions appropriately - Head Head exam: Present: atraumatic, normocephalic - Eye Eye exam: Present: PERRL, conjuntiva pink, sclera anicteric Pupils: Present: PERRL - Neck Neck exam general surgery: Present: supple, trachea midline. Absent: lymphadenopathy - Respiratory Respiratory exam: Present: CTAB. Absent: accessory muscle use, rales, rhonchi, wheezes - Cardiovascular Cardiovascular exam: Present: RRR, +S1, +S2. Absent: diastolic murmur, gallop, rubs, systolic murmur - GI/Abdominal GI/Abdominal exam: Present: normal bowel sounds, soft, no peritoneal signs. Absent: distended, tenderness - Extremities Exam Extremities exam: Present: warm, radial pulses palpable and symetrical. Absent : calf tenderness, cyanotic, pedal edema Additional comments: Right BKA left foot all toes amputated - Neurological Exam Neurological exam: Present: CN II-XII intact, oriented X3, no focal deficits. Absent: pronater drift, facial droop, speech deficit - Skin Skin exam: Present: dry, intact Internal Med - H&P Results - Labs CBC & Chem 7: 11/11/16 09:34 11/11/16 09:34 - EKG Data EKG shows normal: sinus rhythm - EKG Data Prior EKG available for review: yes When compared to previous EKG: there is no significant change - Diagnostic Studies Other Images Additional comments: Abdomen/Pelvis CT 11/11/16 08:17 IMPRESSION: Left pleural effusion and lingular atelectasis or infiltrate. Small mediastinal lymph nodes with the largest in the precarinal region measuring 12 mm in short axis diameter. This may be reactive in nature. Small pericardial effusion. Negative for nephrocalcinosis Bladder wall thickening may be related to nondistention versus cystitis D/ / Israel Gardner MD / Israel Gardner MD Interpreting Provider: Israel Gardner MD Chest CT 11/11/16 10:32
[2016-11-11] MEDS ORDERED: Insulin LISPRO 300 UNITS/3 ML VIAL SQ SCH (12:00)
[2016-11-11] MEDS ORDERED: Naloxone 0.4 MG/ML INJ IVP PRN (12:02)
[2016-11-11] MEDS: Metoclopramide 10 MG/2 ML VIAL IVP SCH ×2 (12:11→18:19)
[2016-11-11] MEDS: *HR* HYDROmorphone (PF) 1 MG/ML SYRINGE IVP PRN ×2 (12:11→17:59)
--- NOTE | 2016-11-11 12:40 | Event Note ---
Date of Encounter: 11/11/16 Time of Encounter: 12:37 Patient seen and examined with nurse practitioner. Patients with end-stage renal disease on hemodialysis Wednesday through all right suspected history of gastroparesis presents to the emergency room today with main complain of intractable nausea vomiting abdominal pain and diarrhea. No fevers chills leukocytosis. Suspect that this is related to gastroparesis or hypertensive emergency. Patient has severe hypertension. Systolic blood pressure over 200 and diastolic over 120. We will start the patient a nitroglycerin drip. Potassium is 6.3. She has not dialysis today at. Discussed with nephrology for dialysis today. Patient right now has powerglide. She has poor venous axis. Nephrology does not want to access the perma cath. If Problem persists with access, will put a central line. She has history of PCI in February 2016 with 2 stent placement. Will continue dual antiplatelet therapy with aspirin and Plavix. Initial troponin elevated likely demand ischemia will trend serial troponin. EKG shows no ischemic changes but some tenting of T waves. No focal neurological deficits. Doubt infectious etiology for diarrhea.
[2016-11-11] MEDS ORDERED: 0.9 % Sodium Chloride 250 ML IVC PRN (13:31)
[2016-11-11] MEDS ORDERED: *HR* Heparin 10,000 UNIT/10 ML VIAL IV PRN (13:36)
[2016-11-11] MEDS ORDERED: 0.9 % Sodium Chloride 1,000 ML PRIME SCH (13:45)
[2016-11-11] MEDS ORDERED: *HR* Promethazine 25 MG/ML VIAL IVP ONE (15:50)
[2016-11-11] MEDS: Insulin LISPRO 300 UNITS/3 ML VIAL SQ SCH ×2 (15:52→18:12)
[2016-11-11] MEDS ORDERED: 0.9 % Sodium Chloride 2,000 ML ONE (16:57)
[2016-11-11] MEDS: *HR* Heparin 5,000 UNIT/ML VIAL SQ SCH (18:12)
[2016-11-11] MEDS: Pantoprazole 40 MG VIAL IVP SCH (18:18)
[2016-11-11] MEDS: Nitroglycerin 25 MG/250 ML INFUS..BTL IVC SCH (20:00)
[2016-11-11] MEDS ORDERED: *HR* HYDROmorphone (PF) 1 MG/ML SYRINGE IVP ONE (20:35)
[2016-11-12] MEDS: *HR* HYDROmorphone (PF) 1 MG/ML SYRINGE IVP PRN ×4 (03:41→20:33)
[2016-11-12] MEDS: Metoclopramide 10 MG/2 ML VIAL IVP SCH ×4 (06:10→16:35)
[2016-11-12] MEDS: *HR* Heparin 5,000 UNIT/ML VIAL SQ SCH ×2 (06:17→16:34)
[2016-11-12] MEDS: Insulin LISPRO 300 UNITS/3 ML VIAL SQ SCH ×6 (06:17→22:59)
[2016-11-12 07:18] LABS: Basophils % 0.4 %; Eosinophils # 0.3 K/mcL (0.0-0.6); Eosinophils % 5.4 %; Hematocrit 32.4 % (35.3-44.9); Immature Granulocytes % 0.4 % (0-4); Lymphocytes # 0.6 K/mcL (0.6-4.6); Lymphocytes % 12.4 %; Mean Corpuscular HGB Conc 31.5 g/dL (31.6-35.5); Mean Corpuscular Hemoglobin 28.7 pg (28.0-33.3); Mean Platelet Volume 10.9 fL (9.4-12.4); Monocytes # 0.7 K/mcL (0.0-1.3); Monocytes % 15.2 %; Neutrophils # 3.1 K/mcL (1.6-8.9); Platelet Count 161 K/mcL (140-400); Red Blood Count 3.56 M/mcL (3.82-4.97); Red Cell Distribution Width 14.6 % (11.5-14.5); Segmented Neutrophils % 66.2 %
[2016-11-12 07:20] LABS: Hemoglobin 10.2 g/dL (11.5-15.4)
[2016-11-12 07:48] LABS: Calcium 8.4 mg/dL (8.6-10.8); Magnesium 1.6 mg/dL (1.6-2.6); Potassium 4.6 mEq/L (3.5-4.5)
[2016-11-12] MEDS: Aspirin 81 MG TAB.CHEW PO SCH (08:27)
[2016-11-12] MEDS: Pantoprazole 40 MG VIAL IVP SCH (08:27)
[2016-11-12] MEDS ORDERED: NIFEdipine XL (24 HR) 60 MG TAB.ER.24 PO SCH (09:00)
[2016-11-12 09:37] LABS: Beta-Hydroxybutyric Acid 0.16 mmol/L (0.02-0.27)
--- NOTE | 2016-11-12 09:40 | Nephrology Consult Note ---
Date of Encounter: 11/12/16 Time of Encounter: 08:45 Assessment and Plan (1) ESRD (end stage renal disease) on dialysis Current Visit: Yes Status: Chronic EsRD in setting DM, HTN. Hypertensive urgency most likely due to non compliance of medication. Started on PO BP medication this morning. BP managable when compliant. Hyperkalemia. Question this with "ongoing emesis and diarrhea". Potassium improved 4.6 with HD yesterday. Recommend stopping narcotics. Well known drug seeking behavior which includes other surrounding facilities. Recommend GI consult for guiac positive stool. HD tomorrow, keeping F schedule. Maturing left brachiocephalic transposed AV fistula, not ready for access. History of Present Illness - Reason for Consult end stage renal disease - History of Present Illness Ms. Benavidez is a 36 year old female who dialyzes at [facility], last dialysis yesterday here at [facility]. Other PMH-hypertension, coronary artery disease with stent placement, diabetes type 1 DVT left arm, BKA, gastroparesis. Also extensive history of drug seeking behavior and Non-Compliance with DM and HTN and ESRD/HD. Ms. Benavidez presented yesterday with intractable N/V and diarrhea. BP 200/120. States unable to keep her BP medication down due to emesis. Hyperkalemia 6.3 (? emesis and diarrhea). Guiac positive. She was started on Nitro drip, however staff states difficulty managing BP throughout night. She received Dilaudid this morning for pain and started on PO BP medication. She states able to eat breakfast this morning, had one diarrhea stool during night. Past Med Surg Social Fam HX - Past Medical History Medical history: coronary artery disease, diabetes, dialysis, hypertension, renal disease Psychiatric history: anxiety, depression - Past Surgical History Surgical History: hysterectomy, other - Social History Smoking Status: Never smoker Smokeless Tobacco Status: No Alcohol use: none Drug use: none - Family History Mother Adopted: No Family Member Ethnicity: Non- Living Status: Still Living Hx Family Cardiac Disorders: Yes (Father with coronary artery disease) Hx Family Respiratory Disorders: No Hx Family Cancer: Yes (Breast) Hx Family GI Disorders: No Hx Family Endocrine Disorder: Yes (Mother with dm) Hx Family Neuromuscular Disorders: No Hx Family Neurologic Disorders: No Hx Family HEENT Disorders: No Hx Family Autoimmune Disorders: No Medications and Allergies Insulin DETEMIR [Levemir] 80 unit SQ HS [id number] 12/18/15 [Rx] Aspirin 81 mg PO DAILY #30 tab.chew 12/22/15 [Rx] HYDROcodone/Acet 10/325 mg [[place] 10-325 mg] 1 tab PO QID PRN 01/21/16 [History] Darbepoetin [Aranesp] 60 mcg SQ QWEEK syringe 01/23/16 [Rx] Metoprolol [Lopressor] 25 mg PO BID 30 Days 01/26/16 [Rx] Metoclopramide [Reglan] 10 mg PO Q6HR PRN 04/20/16 [History] Venlafaxine XR (24 HR) [Effexor XR] 37.5 mg PO HS 04/20/16 [History] clonazePAM [Klonopin] 2 mg PO BID PRN 04/20/16 [History] Insulin ASPART [NovoLOG] 2 - 10 unit SQ TIDWM 04/21/16 [History] Clopidogrel [Plavix] 75 mg PO DAILY tablet 04/23/16 [Rx] Lisinopril [Zestril] 20 mg PO BID 30 Days 04/23/16 [Rx] Omeprazole [PriLOSEC] 20 mg PO BID capsule. 04/23/16 [Rx] NIFEdipine [Nifedical Xl] 60 mg PO DAILY 06/30/16 [History] Isosorbide MONOnitrate (24 HR) [Imdur] 120 mg PO DAILY tab.er.24h 07/04/16 [Rx] Atorvastatin [Lipitor] 40 mg PO DAILY 08/12/16 [History] Carvedilol 12.5 mg PO BID 08/12/16 [History] amLODIPine [Norvasc] 5 mg PO DAILY 08/12/16 [History] cloNIDine [Clonidine] 0.3 mg TP Q5D 08/12/16 [History] Metoclopramide [Reglan] 5 mg PO QIDAC #30 tablet 08/18/16 [Rx] Promethazine [Phenergan] 12.5 mg PO Q6HR #10 tablet 08/23/16 [Rx] Promethazine [Phenergan] 12.5 mg RC Q6HR #10 supp.rect 08/23/16 [Rx] Allergies Amoxicillin Allergy (Verified 11/11/16 08:42) Hives ondansetron [From Zofran (as hydrochloride)] Adverse Reaction (Verified 08:42) Vomiting Exam - Vital Signs Vital signs: Initial Vital Signs Temp Pulse Resp BP Pulse Ox 98.1 F 97 18 237/111 97 11/11/16 06:29 11/11/16 06:29 11/11/16 06:29 11/11/16 06:29 11/11/16 06:29 Vital Signs - Last 8 Hours Temp Pulse Resp BP Pulse Ox 11/12/16 09:07 96 217/125 11/12/16 06:21 98.1 F 97 16 174/97 100 11/12/16 06:00 174/97 11/12/16 05:45 155/91 11/12/16 05:30 159/90 11/12/16 05:15 164/85 11/12/16 05:00 97 154/77 11/12/16 04:45 153/80 11/12/16 04:30 165/94 11/12/16 04:15 216/166 11/12/16 04:00 211/114 11/12/16 03:45 219/101 11/12/16 03:30 228/122 11/12/16 03:25 98.1 F 97 16 217/114 100 11/12/16 03:15 217/114 11/12/16 03:00 201/115 11/12/16 02:45 203/109 11/12/16 02:30 156/98 11/12/16 02:15 154/88 11/12/16 02:00 158/91 11/12/16 01:45 164/83 Intake and Output 11/11/16 11/12/16 11/12/16 23:59 07:59 15:59 Intake Total 0 / 0 720 / 720 Output Total 1600 / 1600 Balance -1600 / -1600 0 / 0 720 / 720 Intake: IV Fluids 0 / 0 Nitroglycerin 25 mg In 0 / 0 250 ml @ 5 MCG/MIN 3 mls/ hr IVC .Q24H [facility] Rx#: [id number] Oral 720 / 720 Output: Urine 0 / 0 Total Dialysis Output 1600 / 1600 Other: Meal Breakfast Stool Size Small Stool Consistency liquid Stool Color Brown Weight 94.347 kg Blood Glucose* 105 123 195 Hemodialysis Net Fluid 1000 Removed (mL) Patient Weight 11/12/16 23:59 Weight 94.347 kg - General Appearance General appearance: well-developed, well-nourished, appears started age EENT: mucous membranes moist Neck: no JVD Respiratory: clear Cardiology: no edema, regular rate, regular rhythm - Dialysis Access thrill: Yes bruit: Yes Additional Comments: Maturing what appears is left brachiocephalic transposed AV fistula, not ready for access. Gastrointestinal: normoactive bowel sounds, no tenderness Integumentary: warm and dry Neurologic: alert and oriented x3 Psychiatric: mood/affect appropriate, cooperative Results - Lab Results 11/12/16 06:21 11/12/16 06:21 Most recent lab results Calcium 8.4 mg/dL (8.6-10.8) L 11/12/16 06:21 Magnesium 1.6 mg/dL (1.6-2.6) 11/12/16 06:21 Consult Discharge Plan - Plan Referrals: Colt Espinoza MD [Primary Care Provider] -
[2016-11-12] MEDS: Lisinopril 20 MG TABLET PO SCH ×2 (10:25→20:33)
[2016-11-12] MEDS: Isosorbide MONOnitrate (24 HR) 60 MG TAB.ER.24H PO SCH (10:26)
--- NOTE | 2016-11-12 10:49 | Electrocardiograph Report ---
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
--- NOTE | 2016-11-12 13:36 | Gastroenterology Consult Note ---
<Chester Irene - Last Filed: 11/12/16 13:34> Date of Encounter: 11/12/16 Time of Encounter: 11:00 - Assessment and plan (1) Intractable nausea and vomiting Current Visit: Yes Status: Acute Assessment and plan: Likely secondary to gastroparesis. Continue Phenergan PRN. Recommend erythromycin, consider holding nifedipine. Qualifiers: Vomiting type: unspecified Qualified Code(s): R11.2 - Nausea with vomiting , unspecified (2) Gastroparesis Current Visit: No Status: Chronic Assessment and plan: GES 08/18/2015 at [facility] with severly delayed gastric emptying. Recommend erythromycin 250 mg q 8hr, consider holding nifedipine.. Use Phenergan PRN. * Small frequent meals * Avoid fried and fatty foods * Chew food well * Blenderize food when symptomatic * Reduce or avoid high-fiber foods and medications * Avoid raw vegetables * If you have diabetes, keep blood sugars well controlled * Avoid medications that can delay gastric emptying such as narcotics, high- fiber medications, and high-fiber foods (3) ESRD (end stage renal disease) on dialysis Current Visit: Yes Status: Chronic Assessment and plan: Management per Nephrology. (4) Diarrhea Current Visit: Yes Status: Acute Assessment and plan: Pt reports diarrhea over the past week. CDiff negative. Check GI panel and fecal calprotectin. Qualifiers: Diarrhea type: unspecified type Qualified Code(s): R19.7 - Diarrhea, unspecified - Time Spent With Patient Total time spent is greater than 50% in coordination of care (as documented) at patient's floor/unit and/or counseling patient: GI History of Present Illness - Data of Consult Patient: known to practice within the last 3 years Consult date: 11/12/16 Requesting Physician: Rose Andrade - Consult Narrative Reason for consult: Intractable nausea and vomiting History of present illness: Ms. Benavidez is a 36 year old female with PMHx of ESRD on dialysis, HTN, DMII, CAD , BKA presented to the ED via EMS squad with nausea, vomiting, and diarrhea. This past week patient has been experiencing increasing abdominal pain, nausea, vomiting, as well as foul-smelling diarrhea. She has been unable to eat or take her medications. C. diff was negative and fecal occult blood test was positive. She was tested for gastroparesis and gastric emptying scan showed severe delayed gastric emptying on 08/18/2015 at [facility]. She denies fever, chills, chest pain, hematemesis, melena, or hematochezia. Procedures: EGD 07/03/2016 monilial esophagitis NSAIDs: Ibuprofen, ASA Anticoagulation: Plavix Past Med Surg Social Fam HX - Past Medical History Medical history: coronary artery disease, diabetes, dialysis, hypertension, renal disease Psychiatric history: anxiety, depression - Past Surgical History Surgical History: hysterectomy, other - Social History Smoking Status: Never smoker Smokeless Tobacco Status: No Alcohol use: none Drug use: none - Family History Mother Adopted: No Family Member Ethnicity: Non- Living Status: Still Living Hx Family Cardiac Disorders: Yes (Father with coronary artery disease) Hx Family Respiratory Disorders: No Hx Family Cancer: Yes (Breast) Hx Family GI Disorders: No Hx Family Endocrine Disorder: Yes (Mother with dm) Hx Family Neuromuscular Disorders: No Hx Family Neurologic Disorders: No Hx Family HEENT Disorders: No Hx Family Autoimmune Disorders: No - Gastrointestinal Gastrointestinal: Present: as per HPI - Constitutional Constitutional: as per HPI - EENT Eyes: as per HPI Ears: Present: as per HPI Nose, mouth and throat: Present: as per HPI - Cardiovascular Cardiovascular ROS: Present: as per HPI - Respiratory Respiratory IM: Present: as per HPI - Genitourinary Genitourinary: Absent: change in color, Urinary frequency - Neurological ROS Neurological GI: Present: as per HPI - Hematologic/Lymphatic Hematologic/Lymphatic pediatric: Present: as per HPI - Musculoskeletal Musculoskeletal ROS GI: Present: as per HPI - Integumentary Integumentary GI: Present: as per HPI - Psychiatric ROS Psychiatric GI: Present: as per HPI - Endocrine Endocrine IM: Present: as per HPI - Constitutional Vitals: Temp Pulse Resp BP Pulse Ox 98.3 F 97 18 188/102 99 11/12/16 11:14 11/12/16 12:00 11/12/16 11:14 11/12/16 12:00 11/12/16 11:14 General appearance: Present: cooperative, A&O X 3, no acute distress, answers questions appropriately - Head Head exam: Present: atraumatic, normocephalic - Eye Eye exam: Present: normal appearance, sclera anicteric - ENT ENT exam: Present: mucous membranes dry - Neck Neck exam general surgery: Present: normal inspection, trachea midline - Respiratory Respiratory exam: Present: CTAB. Absent: rales, rhonchi, wheezes - Cardiovascular Cardiovascular exam: Present: RRR, +S1, +S2 - GI/Abdominal GI/Abdominal exam: Present: soft, tenderness (upper abdominal tenderness), no peritoneal signs. Absent: distended, firm, guarding - Rectal Rectal exam: Present: deferred - Extremities Exam Extremities exam: Present: warm - Neurological Exam Neurological exam: Present: no focal deficits - Psychiatric Psychiatric exam: Present: normal affect, normal mood - Skin Skin exam: Present: dry, intact, normal color, warm Results - Labs CBC & Chem 7: 11/12/16 06:21 11/12/16 06:21 Labs: Last Result Calcium 8.4 mg/dL (8.6-10.8) L 11/12/16 06:21 Troponin I 0.19 ng/mL (0-0.03) H* 11/12/16 06:21 Stool Occult Blood Positive (Negative) A 11/11/16 07:38 Entire Visit Hgb 10.2 g/dL (11.5-15.4) L D 11/12/16 06:21 Hct 32.4 % (35.3-44.9) L 11/12/16 06:21 Total Bilirubin 0.7 mg/dL (0.2-1.2) 11/11/16 09:34 AST 14 Units/L (5-34) 11/11/16 09:34 ALT 18 Units/L (0-55) 11/11/16 09:34 Consult Discharge Plan - Plan Referrals: Colt Espinoza MD [Primary Care Provider] - <Mark Bonilla - Last Filed: 11/12/16 17:35> Date of Encounter: 11/12/16 Time of Encounter: 15:00 - Time Spent With Patient Total time spent is greater than 50% in coordination of care (as documented) at patient's floor/unit and/or counseling patient: GI History of Present Illness - Data of Consult Requesting Physician: Rose Andrade - Consult Narrative History of present illness: Ms. Benavidez is a 36 year old female - Constitutional Vitals: Temp Pulse Resp BP Pulse Ox 97.6 F 91 16 169/94 98 11/12/16 15:55 11/12/16 15:55 11/12/16 15:55 11/12/16 15:55 11/12/16 15:55 Results - Labs CBC & Chem 7: 11/12/16 06:21 11/12/16 06:21 Labs: Last Result Calcium 8.4 mg/dL (8.6-10.8) L 11/12/16 06:21 Troponin I 0.19 ng/mL (0-0.03) H* 11/12/16 06:21 Stool Occult Blood Positive (Negative) A 11/11/16 07:38 Entire Visit Hgb 10.2 g/dL (11.5-15.4) L D 11/12/16 06:21 Hct 32.4 % (35.3-44.9) L 11/12/16 06:21 Total Bilirubin 0.7 mg/dL (0.2-1.2) 11/11/16 09:34 AST 14 Units/L (5-34) 11/11/16 09:34 ALT 18 Units/L (0-55) 11/11/16 09:34 - Attending Attestation I examined this patient and my medical decision-making was reviewed with the SHELTER SUPERVISOR/PA/Advanced Practice Nurse/Resident Physician. I agree with the documented findings, disposition and treatment plan as described except to the extent set forth below. History of gastroparesis now with a complaint of occasional food sticking in her chest and also that occasionally she vomits after she eats. Did eat a full lunch today. Had an EGD done in June that showed Candace esophagitis. At this point recommend symptomatic treatment including a short trial of erythromycin for possible gastroparesis flare. No acute need for EGD
[2016-11-12] MEDS ORDERED: NIFEdipine XL (24 HR) 60 MG TAB.ER.24 PO ONE (13:50)
--- NOTE | 2016-11-12 18:13 | Internal Med Progress Note ---
Date of Encounter: 11/12/16 Time of Encounter: 10:45 - Assessment and plan (1) Intractable nausea and vomiting Current Visit: Yes Status: Acute Assessment and plan: Patient presents with nausea vomiting. Likely secondary to gastroparesis. Continue IV Reglan and IV Phenergan. Qualifiers: Vomiting type: unspecified Qualified Code(s): R11.2 - Nausea with vomiting , unspecified (2) Hypertensive urgency Current Visit: Yes Status: Acute Assessment and plan: Patient's blood pressure on admission over 200/100. He received IV nitro drip and then her home medications were resumed with better control of blood pressure. Hydralazine as needed. (3) ESRD (end stage renal disease) on dialysis Current Visit: Yes Status: Chronic Assessment and plan: Appreciate nephrology input. had urgent HD on admission (yesterday) (4) Diabetes Current Visit: No Status: Acute Assessment and plan: Diabetic diet. His sliding-scale insulin. Accu-Cheks in the 190s. Qualifiers: Diabetes mellitus type: type 1 Diabetes mellitus complication status: with circulatory complication Diabetes mellitus complication detail: with other circulatory complications Qualified Code(s): E10.59 - Type 1 diabetes mellitus with other circulatory complications - Subjective Interval history: Patient denies any nausea or vomiting. Minimal abdominal pain. No chest pain. No shortness of breath. - Constitutional Vitals: Temp Pulse Resp BP Pulse Ox 97.6 F 91 16 169/94 98 11/12/16 15:55 11/12/16 15:55 11/12/16 15:55 11/12/16 15:55 11/12/16 15:55 General appearance: Present: A&O X 3, answers questions appropriately - Neck Neck exam general surgery: Present: supple, trachea midline. Absent: lymphadenopathy - Respiratory Respiratory exam: Present: CTAB - Cardiovascular Cardiovascular exam: Present: RRR - GI/Abdominal GI/Abdominal exam: Present: normal bowel sounds, soft. Absent: distended, tenderness - Extremities Exam Additional comments: R BKA. left foot amputation - Neurological Exam Neurological exam: Present: alert, oriented X3. Absent: facial droop, speech deficit Internal Medicine: Result - Labs CBC & Chem 7: 11/12/16 06:21 11/12/16 06:21 Labs: Short CBC 11/12/16 Range/Units 06:21 WBC 4.6 D (4.3-11.1) K/mcL Hgb 10.2 L D (11.5-15.4) g/dL Hct 32.4 L (35.3-44.9) % Plt Count 161 (140-400) K/mcL Neutrophils # 3.1 (1.6-8.9) K/mcL BMP 11/12/16 06:21 Sodium 137 Potassium 4.6 H D Chloride 95 L Carbon Dioxide 23 BUN 50 H D Creatinine 6.29 H Glucose 172 H Calcium 8.4 L Cardiac Enzymes 11/11/16 11/12/16 Range/Units 21:21 06:21 Troponin I 0.21 H* 0.19 H* (0-0.03) ng/mL Consult Discharge Plan - Plan Referrals: Colt Espinoza MD [Primary Care Provider] -
[2016-11-12] MEDS ORDERED: hydrALAZINE 10 MG TABLET PO PRN (18:14)
[2016-11-12] MEDS ORDERED: Insulin DETEMIR 100 UNIT/ML X5UNITS SQ SCH (21:00)
[2016-11-13] MEDS: Insulin LISPRO 300 UNITS/3 ML VIAL SQ SCH ×5 (00:42→14:42)
[2016-11-13] MEDS: *HR* HYDROmorphone (PF) 1 MG/ML SYRINGE IVP PRN ×3 (00:42→08:47)
[2016-11-13] MEDS: Metoclopramide 10 MG/2 ML VIAL IVP SCH ×3 (00:42→14:41)
[2016-11-13 06:02] LABS: Basophils % 0.2 %; Eosinophils # 0.3 K/mcL (0.0-0.6); Eosinophils % 5.4 %; Hematocrit 28.8 % (35.3-44.9); Hemoglobin 9.2 g/dL (11.5-15.4); Immature Granulocytes % 0.5 % (0-4); Lymphocytes # 0.6 K/mcL (0.6-4.6); Lymphocytes % 9.9 %; Mean Corpuscular HGB Conc 31.9 g/dL (31.6-35.5); Mean Corpuscular Hemoglobin 29.1 pg (28.0-33.3); Mean Corpuscular Volume 91.1 fL (83.0-100.0); Mean Platelet Volume 10.3 fL (9.4-12.4); Monocytes # 0.8 K/mcL (0.0-1.3); Monocytes % 13.5 %; Platelet Count 167 K/mcL (140-400); Red Blood Count 3.16 M/mcL (3.82-4.97); Red Cell Distribution Width 14.4 % (11.5-14.5); Segmented Neutrophils % 70.5 %
[2016-11-13 06:05] LABS: Neutrophils # 4.4 K/mcL (1.6-8.9)
[2016-11-13 06:11] LABS: Calcium 7.8 mg/dL (8.6-10.8); Magnesium 1.7 mg/dL (1.6-2.6); Potassium 5.6 mEq/L (3.5-4.5)
[2016-11-13] MEDS: *HR* Heparin 5,000 UNIT/ML VIAL SQ SCH (06:22)
[2016-11-13 06:36] LABS: Platelet Estimate Normal (Normal)
[2016-11-13] MEDS: Pantoprazole 40 MG VIAL IVP SCH (08:47)
[2016-11-13] MEDS: Aspirin 81 MG TAB.CHEW PO SCH (08:47)
[2016-11-13] MEDS: Isosorbide MONOnitrate (24 HR) 60 MG TAB.ER.24H PO SCH (08:47)
[2016-11-13] MEDS: Lisinopril 20 MG TABLET PO SCH (08:48)
[2016-11-13] MEDS: Nitroglycerin 25 MG/250 ML INFUS..BTL IVC SCH (08:48)
[2016-11-13] MEDS ORDERED: NIFEdipine XL (24 HR) 60 MG TAB.ER.24 PO SCH (09:00)
[2016-11-13] MEDS ORDERED: 0.9 % Sodium Chloride 250 ML IVC PRN (09:26)
[2016-11-13] MEDS ORDERED: *HR* Heparin 10,000 UNIT/10 ML VIAL IV PRN (09:26)
--- NOTE | 2016-11-13 10:28 | Nephrology Progress Note ---
Date of Encounter: 11/13/16 Time of Encounter: 10:05 - Assessment and Plan (1) ESRD (end stage renal disease) on dialysis Current Visit: Yes Status: Chronic ESRD in setting DM, HTN. Hypertensive urgency most likely due to non compliance of medication. BP greatly improved. Recommend stopping narcotics. Well known drug seeking behavior which includes other surrounding facilities. GI on board. HD today, keeping MWF schedule. Maturing left brachiocephalic transposed AV fistula, not ready for access. Subjective Interval history: States feeling better, denies emesis or loose stools. Ate breakfast. Objective - Vital Signs Vital signs: Vital Signs Temp Pulse Resp BP Pulse Ox 11/13/16 08:14 102 11/13/16 07:28 98.0 F 98 20 153/91 97 11/13/16 04:30 99 11/13/16 04:18 97.8 F 102 18 146/79 96 11/13/16 00:40 96 11/13/16 00:14 98.8 F 103 17 168/85 98 11/12/16 20:30 98.4 F 98 20 191/99 98 11/12/16 15:55 97.6 F 91 16 169/94 98 11/12/16 12:00 97 188/102 11/12/16 11:14 98.3 F 98 18 177/99 99 11/12/16 11:00 99 176/99 Intake and Output 11/12/16 11/13/16 11/13/16 23:59 07:59 15:59 Intake Total 200 / 200 Output Total 0 / 0 Balance 200 / 200 Intake: Oral 200 / 200 Output: Urine 0 / 0 Other: Meal Breakfast Percent of Meal Consumed 90% # Voids 0 # Bowel Movement Diapers 0 Weight 99 kg Blood Glucose* 138 Patient Weight 11/13/16 23:59 Weight 99 kg - General Appearance General appearance: Present: well-developed, well-nourished, appears started age EENT: Present: mucous membranes moist Neck: Present: no JVD Respiratory: Present: clear Cardiology: Present: no edema, regular rate, regular rhythm Gastrointestinal: Present: normoactive bowel sounds, no tenderness Integumentary: Present: warm and dry Neurologic: Present: alert and oriented x3 Psychiatric: Present: mood/affect appropriate, cooperative - Lab 11/13/16 05:52 11/13/16 05:52 Most recent lab results Calcium 7.8 mg/dL (8.6-10.8) L 11/13/16 05:52 Magnesium 1.7 mg/dL (1.6-2.6) 11/13/16 05:52 Consult Discharge Plan - Plan Referrals: Colt Espinoza MD [Primary Care Provider] - 11/30/16 9:45 am
--- NOTE | 2016-11-13 10:40 | Internal Med Progress Note ---
Date of Encounter: 11/13/16 Time of Encounter: 09:30 - Assessment and plan (1) Intractable nausea and vomiting Current Visit: Yes Status: Acute Qualifiers: Vomiting type: unspecified Qualified Code(s): R11.2 - Nausea with vomiting , unspecified (2) Hypertensive urgency Current Visit: Yes Status: Acute (3) ESRD (end stage renal disease) on dialysis Current Visit: Yes Status: Chronic (4) Diabetes Current Visit: No Status: Acute Qualifiers: Diabetes mellitus type: type 1 Diabetes mellitus complication status: with circulatory complication Diabetes mellitus complication detail: with other circulatory complications Qualified Code(s): E10.59 - Type 1 diabetes mellitus with other circulatory complications - Subjective Interval history: Patient reports eating some, mild nausea. no vomiting. - Constitutional Vitals: Temp Pulse Resp BP Pulse Ox 98.0 F 102 20 153/91 97 11/13/16 07:28 11/13/16 08:14 11/13/16 07:28 11/13/16 07:28 11/13/16 07:28 General appearance: Present: cooperative, A&O X 3, pleasant, no acute distress, answers questions appropriately - Respiratory Respiratory exam: Present: CTAB - Cardiovascular Cardiovascular exam: Present: RRR - GI/Abdominal GI/Abdominal exam: Present: normal bowel sounds, soft. Absent: distended, tenderness - Extremities Exam Additional comments: R BKA. left mid foot amputation. - Neurological Exam Neurological exam: Present: alert, oriented X3. Absent: facial droop, speech deficit Internal Medicine: Result - Labs CBC & Chem 7: 11/13/16 05:52 11/13/16 05:52 Labs: Short CBC 11/13/16 Range/Units 05:52 WBC 6.2 (4.3-11.1) K/mcL Hgb 9.2 L (11.5-15.4) g/dL Hct 28.8 L (35.3-44.9) % Plt Count 167 (140-400) K/mcL Neutrophils # 4.4 (1.6-8.9) K/mcL BMP 11/13/16 05:52 Sodium 133 L Potassium 5.6 H D Chloride 95 L Carbon Dioxide 22 BUN 63 H D Creatinine 8.08 H Glucose 107 H Calcium 7.8 L Consult Discharge Plan - Plan Referrals: Colt Espinoza MD [Primary Care Provider] - 11/30/16 9:45 am
[2016-11-13] MEDS: hydrALAZINE 25 MG TABLET PO SCH ×2 (13:49→14:41)
[2016-11-13 14:22] VITALS: BP 160/84
--- NOTE | 2016-11-13 14:59 | Discharge Summary ---
Date of Encounter: 11/13/16 Time of Encounter: 14:30 - Discharge Diagnosis (1) Intractable nausea and vomiting Priority: Primary Status: Acute Qualifiers: Vomiting type: unspecified Qualified Code(s): R11.2 - Nausea with vomiting , unspecified (2) Hypertensive urgency Priority: Primary Status: Acute (3) ESRD (end stage renal disease) on dialysis Priority: Secondary Status: Chronic (4) Diabetes Priority: Primary Status: Acute Qualifiers: Diabetes mellitus type: type 1 Diabetes mellitus complication status: with circulatory complication Diabetes mellitus complication detail: with other circulatory complications Qualified Code(s): E10.59 - Type 1 diabetes mellitus with other circulatory complications - Discharge Medications Prescriptions: Metoclopramide [Reglan] 10 mg PO Q6HR #120 ud.liq hydrALAZINE [HydrALAZINE] 100 mg PO Q8HR #120 tablet Lisinopril [Zestril] 20 mg PO BID 60 Days Lisinopril [Zestril] 20 mg PO DAILY #60 tablet Lisinopril [Zestril] 20 mg PO BID #60 tablet Metoprolol [Lopressor] 75 mg PO BID #90 tablet Home Medications: Insulin DETEMIR [Levemir] 80 unit SQ HS [id number] 12/18/15 [Rx] Aspirin 81 mg PO DAILY #30 tab.chew 12/22/15 [Rx] HYDROcodone/Acet 10/325 mg [[place] 10-325 mg] 1 tab PO QID PRN 01/21/16 [History] Darbepoetin [Aranesp] 60 mcg SQ QWEEK syringe 01/23/16 [Rx] Venlafaxine XR (24 HR) [Effexor XR] 37.5 mg PO HS 04/20/16 [History] clonazePAM [Klonopin] 2 mg PO BID PRN 04/20/16 [History] Insulin ASPART [NovoLOG] 2 - 10 unit SQ TIDWM 04/21/16 [History] Clopidogrel [Plavix] 75 mg PO DAILY tablet 04/23/16 [Rx] Omeprazole [PriLOSEC] 20 mg PO BID capsule. 04/23/16 [Rx] Atorvastatin [Lipitor] 40 mg PO DAILY 08/12/16 [History] cloNIDine [Clonidine] 0.3 mg TP Q5D 08/12/16 [History] Metoclopramide [Reglan] 5 mg PO QIDAC #30 tablet 08/18/16 [Rx] Promethazine [Phenergan] 12.5 mg PO Q6HR #10 tablet 08/23/16 [Rx] Promethazine [Phenergan] 12.5 mg RC Q6HR #10 supp.rect 08/23/16 [Rx] Isosorbide MONOnitrate (24 HR) [Imdur] 120 mg PO DAILY #60 tab.er.24h 11/13/16 [ Rx] Lisinopril [Zestril] 20 mg PO BID #60 tablet 11/13/16 [Rx] Lisinopril [Zestril] 20 mg PO BID 60 Days 11/13/16 [Rx] Lisinopril [Zestril] 20 mg PO DAILY #60 tablet 11/13/16 [Rx] Metoclopramide [Reglan] 10 mg PO Q6HR #120 ud.liq 11/13/16 [Rx] Metoprolol [Lopressor] 75 mg PO BID #90 tablet 11/13/16 [Rx] hydrALAZINE [HydrALAZINE] 100 mg PO Q8HR #120 tablet 11/13/16 [Rx] Allergies/Adverse Reactions: Allergies Amoxicillin Allergy (Verified 11/11/16 08:42) Hives ondansetron [From Zofran (as hydrochloride)] Adverse Reaction (Verified 08:42) Vomiting Date of admission: 11/11/16 11:21 Primary care physician: Colt Espinoza MD Consults: 11/11/16 11:40 Consult to Gastroenterology [CONS] Routine Consulting Provider: Gastroenterology [place] Reason for Consult: intractable N/V Time Notified: 11:40 Call Completed: Yes 11/11/16 13:45 Consult to Dialysis [CONS] ONCE 11/13/16 09:30 Consult to Dialysis [CONS] ONCE - Patient Status Disposition: Home Health Service Condition: Good Functional capacity at discharge: wheelchair bound Overall status at discharge: patient is progressing back to baseline - Discharge Instructions Instructions: Metoprolol (By mouth), Lisinopril (By mouth), Metoclopramide (By mouth), Hydralazine (By mouth), Acute Nausea and Vomiting, Special Officer Automat (GEN) Follow Up With: Colt Espinoza MD [Primary Care Provider] - 11/30/16 9:45 am Mark Bonilla MD [Partnered Physician] - (SENT WEB REQUEST ON 11-13-16 @ [id number]) Additional Instructions: - ADVANCE DIABETIC DIET TOLERATED. - Diet and Activity Activity: resume usual activities as tolerated Diet: diabetic diet, low fat, low cholesterol, low salt diet, other (renal. fluid restriction 1.8 liters a day) Interval History: Patient has no complaints. She is eager to Eat regular food and go home. Hospital course: Ms. Beanvidez is a 36 year old female with past medical history of diabetes mellitus type 1, end-stage renal disease on hemodialysis, CAD, hypertension on Indra (and known to be noncompliant with medications and dialysis appointments. She presented with a chief complaint of nausea, vomiting and diarrhea. She was found to be on hypertensive urgency with blood pressure over 200/100s. She was started on IV nitro drip and then transition to her oral home medications with good control of her blood pressure. Procardia was discontinued due to worsening of gastroparesis. She was started on IV Reglan scheduled with good control of her vomiting. She was eating at discharge. PLAN: Follow-up with primary care physician in one week. Patient instructed to check her blood pressure daily and her blood sugars. - Time Spent with Patient Total time spent providing and/or coordinating discharge services: - Constitutional Vitals: Temp Pulse Resp BP Pulse Ox 98.0 F 95 18 160/84 96 11/13/16 13:50 11/13/16 14:20 11/13/16 14:20 11/13/16 14:20 11/13/16 14:20 General appearance: Present: cooperative, A&O X 3, pleasant, no acute distress, answers questions appropriately - Respiratory Respiratory exam: Present: CTAB - Cardiovascular Cardiovascular exam: Present: RRR - GI/Abdominal GI/Abdominal exam: Present: normal bowel sounds, soft. Absent: distended, tenderness - Extremities Exam Additional comments: Right below the knee amputation - Back Exam Back exam: Absent: CVA tenderness (L), CVA tenderness (R) - Neurological Exam Neurological exam: Present: alert, oriented X3, no focal deficits, strengths equal and symetr throughout. Absent: facial droop, speech deficit - Skin Skin exam: Absent: rash
--- NOTE | 2016-11-13 15:06 | Physician Discharge Referral ---
Home Health/Hosp Referral Info Transfer to: Home Health Attending Provider: pete Provider in Charge Post Discharge: PCP - Diagnosis (1) Intractable nausea and vomiting Status: Acute (2) Hypertensive urgency Status: Acute (3) ESRD (end stage renal disease) on dialysis Status: Chronic (4) Diabetes Status: Acute - Respiratory Orders Smoking Cessation: Smoking cessation has been advised. For more information, call the [place] Tobacco Quit Line at 7-170-UVSL-NOW. - Diet/Nutrition Diet/Nutrition Orders: No Added Salt (VANESSA), Renal (1.8 liters per day), Cardiac , No Concentrated Sweets - Activity Activity Orders: Chair - Services Needed Following services are medically necessary services: Nursing, Home Health Aide - Transfer Medications Prescriptions: Metoclopramide [Reglan] 10 mg PO Q6HR #120 ud.liq hydrALAZINE [HydrALAZINE] 100 mg PO Q8HR #120 tablet Lisinopril [Zestril] 20 mg PO BID 60 Days Metoprolol [Lopressor] 75 mg PO BID #90 tablet Home Medications: Insulin DETEMIR [Levemir] 80 unit SQ HS [id number] 12/18/15 [Rx] Aspirin 81 mg PO DAILY #30 tab.chew 12/22/15 [Rx] HYDROcodone/Acet 10/325 mg [[place] 10-325 mg] 1 tab PO QID PRN 01/21/16 [History] Darbepoetin [Aranesp] 60 mcg SQ QWEEK syringe 01/23/16 [Rx] Venlafaxine XR (24 HR) [Effexor XR] 37.5 mg PO HS 04/20/16 [History] clonazePAM [Klonopin] 2 mg PO BID PRN 04/20/16 [History] Insulin ASPART [NovoLOG] 2 - 10 unit SQ TIDWM 04/21/16 [History] Clopidogrel [Plavix] 75 mg PO DAILY tablet 04/23/16 [Rx] Omeprazole [PriLOSEC] 20 mg PO BID capsule. 04/23/16 [Rx] Atorvastatin [Lipitor] 40 mg PO DAILY 08/12/16 [History] cloNIDine [Clonidine] 0.3 mg TP Q5D 08/12/16 [History] Metoclopramide [Reglan] 5 mg PO QIDAC #30 tablet 08/18/16 [Rx] Promethazine [Phenergan] 12.5 mg PO Q6HR #10 tablet 08/23/16 [Rx] Promethazine [Phenergan] 12.5 mg RC Q6HR #10 supp.rect 08/23/16 [Rx] Isosorbide MONOnitrate (24 HR) [Imdur] 120 mg PO DAILY #60 tab.er.24h 11/13/16 [ Rx] Lisinopril [Zestril] 20 mg PO BID 60 Days 11/13/16 [Rx] Metoclopramide [Reglan] 10 mg PO Q6HR #120 ud.liq 11/13/16 [Rx] Metoprolol [Lopressor] 75 mg PO BID #90 tablet 11/13/16 [Rx] hydrALAZINE [HydrALAZINE] 100 mg PO Q8HR #120 tablet 11/13/16 [Rx] Allergies/Adverse Reactions: Allergies Amoxicillin Allergy (Verified 11/11/16 08:42) Hives ondansetron [From Zofran (as hydrochloride)] Adverse Reaction (Verified 08:42) Vomiting Certification: Further, I certify that my clinical findings support that this patient is homebound (i.e. absences from home require considerable and taxing effort and are for medical reasons or worship services or infrequently or short duration when for other reasons) because: Homebound Reason: Patient requires assistance of a person or device to safely leave home, Leaving home requires considerable and taxing effort due to condition Attestation: My signature below is to certify that this patient is under my care and that I, or nurse practitioner, or a physician's butcher's assistant working with me, has a face-to -face encounter with this patient.
[2016-11-13] MEDS ORDERED: 0.9 % Sodium Chloride 2,000 ML ONE (16:09)
[2016-11-14 19:13] LABS: CK-BB (CK isoenzymes) 0 % (0-0); CK-MB (CK isoenzymes) 0 % (0-4); CK-MM (CK-isoenzymes) 100 % (96-100)
[2016-11-16 07:10] LABS: CK Total (Ck Isoenzymes) 186 U/L (20-180)
== END 2016-11-13 16:45 | disposition home health service (06) | DRG 73 ==
LOC: EMEROO 06:28 → 2NNU 11:21
PROVIDERS: ADMIT Hospitalist; ATTEND Internal Medicine

== ENCOUNTER 2017-01-22 15:02 | Inpatient (IN) ==
[2017-01-22] MEDS ORDERED: Ondansetron 4 MG/2 ML VIAL IVP ONE (16:26)
[2017-01-22] MEDS ORDERED: Aspirin 325 MG TABLET PO ONE (16:26)
[2017-01-22] MEDS ORDERED: *HR* Morphine 2 MG/ML SYRINGE IVP ONE ×2 (16:26→18:17)
--- NOTE | 2017-01-22 16:50 | Emergency Department Note ---
Disposition Clinical Impression: Pleural effusion, ESRD (end stage renal disease) on dialysis, Pleuritic chest pain Disposition: Admitted As Inpatient Condition: Good Referrals: NONE,PCP [Primary Care Provider] - Forms: ED Satisfaction Letter Time of Disposition: 18:15 General Adult HPI - General Chief complaint: ED Shortness of Breath/Dyspnea Stated complaint: From Dialysis// Left pleural Effussion Time Seen by Provider: 01/22/17 16:08 Source: patient Limitations: no limitations Nursing Notes Reviewed: Yes Vital Signs Reviewed: Yes - History of Present Illness HPI Narrative: 36-year-old female presenting to the emergency department from dialysis for left -sided pleural effusion. She states for approximately the past 3 days she has been feeling increased weakness, pleuritic chest pain, increased shortness of breath. She has had a pleural effusion drained once in the past approximately in April. She is no fevers, cough, vomiting or diarrhea. She states she has been feeling nauseous with this is her normal baseline. She performs dialysis Wednesday and Wednesday and her alberene stone setter is Dr. Aly. She was able to complete dialysis today as needed. She has not been on any recent trips, hormonal therapy but she does have history of a previous DVT. She has a significant cardiac history of previous stent placement. She was recently taken off anticoagulation from the stent placement approximately one month ago. Pain Scale: 8 - Related Data Home Medications Medication Instructions Recorded Confirmed HYDROcodone/Acet 10/325 mg [[place] 1 tab PO QID PRN 01/21/16 11/11/16 10-325 mg] Venlafaxine XR (24 HR) [Effexor XR] 37.5 mg PO HS 04/20/16 11/11/16 clonazePAM [Klonopin] 2 mg PO BID PRN 04/20/16 11/11/16 Insulin ASPART [NovoLOG] 2 - 10 unit SQ TIDWM 04/21/16 11/11/16 Atorvastatin [Lipitor] 40 mg PO DAILY 08/12/16 11/11/16 cloNIDine [Clonidine] 0.3 mg TP Q5D 08/12/16 11/11/16 Previous Rx's Medication Instructions Recorded Insulin DETEMIR [Levemir] 80 unit SQ HS [id number] 12/18/15 Aspirin 81 mg PO DAILY #30 tab.chew 12/22/15 Darbepoetin [Aranesp] 60 mcg SQ QWEEK syringe 01/23/16 Clopidogrel [Plavix] 75 mg PO DAILY tablet 04/23/16 Omeprazole [PriLOSEC] 20 mg PO BID capsule. 04/23/16 Metoclopramide [Reglan] 5 mg PO QIDAC #30 tablet 08/18/16 Promethazine [Phenergan] 12.5 mg PO Q6HR #10 tablet 08/23/16 Promethazine [Phenergan] 12.5 mg RC Q6HR #10 supp.rect 08/23/16 Isosorbide MONOnitrate (24 HR) 120 mg PO DAILY #60 tab.er.24h 11/13/16 [Imdur] Lisinopril [Zestril] 20 mg PO BID #60 tablet 11/13/16 Lisinopril [Zestril] 20 mg PO BID 60 Days 11/13/16 Lisinopril [Zestril] 20 mg PO DAILY #60 tablet 11/13/16 Metoclopramide [Reglan] 10 mg PO Q6HR #120 ud.liq 11/13/16 Metoprolol [Lopressor] 75 mg PO BID #90 tablet 11/13/16 hydrALAZINE [HydrALAZINE] 100 mg PO Q8HR #120 tablet 11/13/16 Allergies Allergy/AdvReac Type Severity Reaction Status Date / Time Amoxicillin Allergy Hives Verified 01/22/17 15:39 ondansetron AdvReac Vomiting Verified 01/22/17 15:39 [From Zofran (as hydrochloride)] All systems ED: reviewed and negative except as stated. Constitutional: Reports: weakness Cardiovascular: Reports: chest pain, dyspnea on exertion Respiratory: Reports: dyspnea Gastrointestinal: Reports: abdominal pain, nausea Neurological: Reports: weakness Past Medical History - Past Medical History Attestation: Yes The following information was validated with the patient. Source: patient Medical history: Reports: coronary artery disease, diabetes, dialysis, hypertension, renal disease Surgical history: Reports: hysterectomy, other Psychiatric history: Reports: anxiety, depression NAPHTHALENE OPERATOR HELPER history: Reports: no NAPHTHALENE OPERATOR HELPER history, other - Social History Smoking Status: Former smoker Smokeless Tobacco Status: No Alcohol use: Reports: none Drug use: Reports: none Physical Exam - General Limitations: no limitations General appearance: alert, in no apparent distress - Head Head exam: atraumatic, normocephalic - Eye Eye exam: Present: normal appearance - Neck Neck exam: Present: normal inspection, full ROM - Chest Chest inspection: Present: normal inspection, symmetric chest wall rise. Absent : tenderness, rash - Respiratory Respiratory exam: Present: other (decreased breath sound on the posterior left side inferior and middle lung don[place]ue). Absent: respiratory distress, wheezes - Cardiovascular Cardiovascular exam: Present: regular rate, normal rhythm, normal heart sounds - Abdominal Exam Abdominal exam: Present: soft, Non-Tender. Absent: distention, guarding, rebound, rigidity - Extremities Exam Extremities exam: Present: other (patient has multiple toe amputations on the left and a BKA on the right) - Neurological Exam Neurological exam: Present: alert, oriented X3 - Psychiatric Psychiatric exam: Present: normal affect - Skin Skin exam: Present: warm, dry, intact Course Course Narrative: 36-year-old female presenting to the emergency department for left-sided pleural effusion. She is describing pleuritic chest pain and shortness of breath. We will perform a cardiac workup and had a d-dimer due to the pleuritic chest pain and history of DVTs. - Reevaluation(s) Reevaluation #1: Dr. Tai reached out to the patient's alberene stone setter Dr. Witt who recommends admitting the patient to tap the pleural effusion. The hospitalist was eleuterio. Sri Barnett accepts the patient. In the room the patient is comfortably eating dinner. She is stable at this time. Time: 18:14 Vital Signs Temperature 99.9 F H 01/22/17 15:39 Pulse Rate 97 01/22/17 15:39 Respiratory Rate 24 01/22/17 15:39 Blood Pressure 172/104 01/22/17 15:39 O2 Sat by Pulse Oximetry 96 01/22/17 15:39 Temperature 99.9 F H 01/22/17 15:39 Pulse Rate 99 01/22/17 17:38 Respiratory Rate 22 01/22/17 17:38 Blood Pressure 196/110 01/22/17 17:38 O2 Sat by Pulse Oximetry 98 01/22/17 17:38 Oxygen Delivery Oxygen Delivery Nasal Cannula Medical Decision Making - MDM Narrative Medical decision making narrative: I examined this patient and my medical decision-making was reviewed with the Resident Physician. I agree with the documented findings, disposition and treatment plan as described except to the extent set forth below. Patient was seen and evaluated by the EMR is Dr. Reyes and myself, I agree with her evaluation and management plan, supervised care the patient felt stay. Patient presents from dialysis today she dialyzes Wednesday and Wednesday sees Dr. Zafar. Finish dialysis had been complaining of some chest pain on the left. She has had coronary disease in the past with a stent. She also has a large pleural effusion which she has had in the past. Diffusion does not look any different and x-ray today compared to CT but it is large and is probably causing her symptoms. She has had a DVT in the past. Her well's score is low. Her d-dimer is elevated. She does not have good IV access for doing a CTA scan. She does have this large pleural effusion so V/Q is probably not going to be helpful. I spoke with Dr. Zafar he would like to bring her in to the hospitalist service have IR see her or CT surgery deceiving have this drained and then follow her appropriately. Kaden speak with her about this as well as hospitalists and see if we can get her admitted. - Medical Records Medical records reviewed: Yes I reviewed the patient's medical records. - Lab Data Lab results reviewed: Yes I reviewed the patient's lab results. Result diagrams: 01/22/17 17:14 01/22/17 17:14 Lab Results 01/22/17 01/22/17 01/22/17 Range/Units 17:14 17:14 17:14 WBC 6.7 (4.3-11.1) K/mcL RBC 3.25 L (3.82-4.97) M/mcL Hgb 8.9 L (11.5-15.4) g/dL Hct 28.6 L (35.3-44.9) % MCV 88.0 (83.0-100.0) fL MCH 27.4 L (28.0-33.3) pg MCHC 31.1 L (31.6-35.5) g/dL RDW 15.1 H (11.5-14.5) % Plt Count 293 (140-400) K/mcL MPV 10.5 (9.4-12.4) fL Immature Gran % 0.4 (0-4) % Seg Neutrophils % 73.5 % Lymphocytes % 12.7 % Monocytes % 9.7 % Eosinophils % 3.4 % Basophils % 0.3 % Neutrophils # 4.9 (1.6-8.9) K/mcL Lymphocytes # 0.9 (0.6-4.6) K/mcL Monocytes # 0.7 (0.0-1.3) K/mcL Eosinophils # 0.2 (0.0-0.6) K/mcL Basophils # 0.0 (0.0-0.2) K/mcL D-Dimer (0-500) ng/mLFEU Sodium 134 L (136-145) mEq/L Potassium 4.2 (3.5-4.5) mEq/L Chloride 96 L (98-109) mEq/L Carbon Dioxide 26 (19-29) mEq/L BUN 26 H (7-20) mg/dL Creatinine 5.37 H (0.57-1.11) mg/dL Est GFR ( Amer) 11 L (> 60) Est GFR (Non-Af Amer) 9 L (> 60) BUN/Creatinine Ratio 5 L (6-26) Glucose 205 H (70-99) mg/dL Calculated Osmolality 289 (280-300) Calcium 9.7 (8.6-10.8) mg/dL Troponin I 0.10 H* (0-0.03) ng/mL 01/22/17 Range/Units 17:14 WBC (4.3-11.1) K/mcL RBC (3.82-4.97) M/mcL Hgb (11.5-15.4) g/dL Hct (35.3-44.9) % MCV (83.0-100.0) fL MCH (28.0-33.3) pg MCHC (31.6-35.5) g/dL RDW (11.5-14.5) % Plt Count (140-400) K/mcL MPV (9.4-12.4) fL Immature Gran % (0-4) % Seg Neutrophils % % Lymphocytes % % Monocytes % % Eosinophils % % Basophils % % Neutrophils # (1.6-8.9) K/mcL Lymphocytes # (0.6-4.6) K/mcL Monocytes # (0.0-1.3) K/mcL Eosinophils # (0.0-0.6) K/mcL Basophils # (0.0-0.2) K/mcL D-Dimer 4446 H (0-500) ng/mLFEU Sodium (136-145) mEq/L Potassium (3.5-4.5) mEq/L Chloride (98-109) mEq/L Carbon Dioxide (19-29) mEq/L BUN (7-20) mg/dL Creatinine (0.57-1.11) mg/dL Est GFR ( Amer) (> 60) Est GFR (Non-Af Amer) (> 60) BUN/Creatinine Ratio (6-26) Glucose (70-99) mg/dL Calculated Osmolality (280-300) Calcium (8.6-10.8) mg/dL Troponin I (0-0.03) ng/mL - Radiology Data Radiology results reviewed: Yes I reviewed the patient's radiology results. - EKG Data EKG #1 EKG attestation: Yes I reviewed and interpreted this EKG. EKG results narrative: Sinus rhythm, 93 bpm. Left axis deviation. Widening of the QRS. Inversion of T waves in leads 1, V5 V6. T-wave in V1, V2 and V3. GA interval of 161 ms, QRS 109 ms, QTC 399 ms. When compared to previous EKG completed on 01/18/17 no significant changes or abnormalities noted.
[2017-01-22] MEDS ORDERED: *HR* Promethazine 25 MG/ML VIAL IVP ONE (17:19)
[2017-01-22 17:21] LABS: Basophils % 0.3 %; Eosinophils # 0.2 K/mcL (0.0-0.6); Eosinophils % 3.4 %; Hematocrit 28.6 % (35.3-44.9); Hemoglobin 8.9 g/dL (11.5-15.4); Immature Granulocytes % 0.4 % (0-4); Lymphocytes # 0.9 K/mcL (0.6-4.6); Lymphocytes % 12.7 %; Mean Corpuscular HGB Conc 31.1 g/dL (31.6-35.5); Mean Corpuscular Hemoglobin 27.4 pg (28.0-33.3); Mean Platelet Volume 10.5 fL (9.4-12.4); Monocytes # 0.7 K/mcL (0.0-1.3); Monocytes % 9.7 %; Neutrophils # 4.9 K/mcL (1.6-8.9); Platelet Count 293 K/mcL (140-400); Red Blood Count 3.25 M/mcL (3.82-4.97); Red Cell Distribution Width 15.1 % (11.5-14.5); Segmented Neutrophils % 73.5 %
[2017-01-22 17:33] LABS: Calcium 9.7 mg/dL (8.6-10.8)
[2017-01-22 17:35] LABS: Potassium 4.2 mEq/L (3.5-4.5)
[2017-01-22] MEDS ORDERED: Naloxone 0.4 MG/ML INJ IVP PRN (20:47)
[2017-01-22] MEDS ORDERED: Acetaminophen 325 MG TABLET PO PRN (20:47)
[2017-01-22] MEDS ORDERED: *HR* OxyCODONE Immed Rel 5 MG TABLET PO PRN (20:47)
[2017-01-22] MEDS ORDERED: D5% in Water 1,000 ML IVC PRN (21:28)
[2017-01-22] MEDS ORDERED: Dextrose Gel 15 GM PO PRN ×2 (21:28)
[2017-01-22] MEDS ORDERED: *HR* Dextrose 50 % in Water (Syg) 50 ML SYRINGE IVP PRN (21:28)
--- NOTE | 2017-01-22 21:33 | Internal Med History&Physical ---
<Jose F Pikephoebe Douglas - Last Filed: 01/22/17 22:12> Date of Encounter: 01/22/17 Internal Medicine - H&P: HPI History of present illness: Ms. Benavidez is a 36 year old female Internal Medicine - H&P: Meds Insulin DETEMIR [Levemir] 80 unit SQ HS [id number] 12/18/15 [Rx] Aspirin 81 mg PO DAILY #30 tab.chew 12/22/15 [Rx] HYDROcodone/Acet 10/325 mg [[place] 10-325 mg] 1 tab PO QID PRN 01/21/16 [History] Darbepoetin [Aranesp] 60 mcg SQ QWEEK syringe 01/23/16 [Rx] Venlafaxine XR (24 HR) [Effexor XR] 37.5 mg PO HS 04/20/16 [History] clonazePAM [Klonopin] 2 mg PO BID PRN 04/20/16 [History] Insulin ASPART [NovoLOG] 2 - 10 unit SQ TIDWM 04/21/16 [History] Clopidogrel [Plavix] 75 mg PO DAILY tablet 04/23/16 [Rx] Omeprazole [PriLOSEC] 20 mg PO BID capsule.dr 04/23/16 [Rx] Atorvastatin [Lipitor] 40 mg PO DAILY 08/12/16 [History] cloNIDine [Clonidine] 0.3 mg TP Q5D 08/12/16 [History] Metoclopramide [Reglan] 5 mg PO QIDAC #30 tablet 08/18/16 [Rx] Promethazine [Phenergan] 12.5 mg PO Q6HR #10 tablet 08/23/16 [Rx] Promethazine [Phenergan] 12.5 mg RC Q6HR #10 supp.rect 08/23/16 [Rx] Isosorbide MONOnitrate (24 HR) [Imdur] 120 mg PO DAILY #60 tab.er.24h 11/13/16 [ Rx] Lisinopril [Zestril] 20 mg PO BID #60 tablet 11/13/16 [Rx] Lisinopril [Zestril] 20 mg PO BID 60 Days 11/13/16 [Rx] Lisinopril [Zestril] 20 mg PO DAILY #60 tablet 11/13/16 [Rx] Metoclopramide [Reglan] 10 mg PO Q6HR #120 ud.liq 11/13/16 [Rx] Metoprolol [Lopressor] 75 mg PO BID #90 tablet 11/13/16 [Rx] hydrALAZINE [HydrALAZINE] 100 mg PO Q8HR #120 tablet 11/13/16 [Rx] Allergies Amoxicillin Allergy (Verified 01/22/17 15:39) Hives ondansetron [From Zofran (as hydrochloride)] Adverse Reaction (Verified 15:39) Vomiting All Systems PM: A 10-system review of systems was performed and is negative for pertinent findings except as documented above in the HPI. - Constitutional Vitals: Temp Pulse Resp BP Pulse Ox 99.3 F 97 22 151/87 100 01/22/17 19:25 01/22/17 19:25 01/22/17 19:25 01/22/17 19:25 01/22/17 19:25 Internal Med - H&P Results - Labs CBC & Chem 7: 01/22/17 17:14 01/22/17 17:14 - Attending Attestation I have personally performed a face to face evaluation on this patient. I have reviewed and agree with the care plan. History and Exam by me shows: 36 yo female with ESRD on HD MWF who presents with worsening SOB. Uses 3 L NC at baseline but developed worsening symptoms. Intermittent tolerance to HD with shortening of sessions intermittently. CXR wound left pleural effusion ROS 14 point review of systems reviewed as best as possible given presentation. Pertinent positive or negative as per HPI or otherwise reviewed as negative General - AAO x 3 Psych - Appropriate affect/speech. No agitation Eyes - [place]. Eye lids intact. No scleral icterus ENT - Oral mucosa pink, dentition intact. External ear clear/dry/intact. No thyromegaly Lymphatics - No cervical/inguinal lympadenopathy Neuro - No gross peripheral or central neuro deficits with intact CN 2-12 exam Heart - Sinus. RRR. S1 and S2 present. No added HS/murmurs appreciated. No elevated JVD appreciated. No calf swellings/erythema Lung - Adequate air entry b/l, left lung dullness, decreased air entry GI - Soft, non-tender. No hepatosplenomegaly/ascities. BS+ - No CVA/suprapubic tenderness or palpable bladder distension Skin - Intact. No rash/petechiae/ecchymosis. Warm extremities MSK - Joints with normal ROM. No joint swellings A/P Acute on chronic respiratory failure 2/2 left pleural effusion - consult IR for tap in the morning - hold plavix - continue HD, discussed compliance - repeat CXR after tap, doubt PNA Chronic issues: DMII HTN ESRD on HD <[place] - Last Filed: 01/22/17 22:35> Date of Encounter: 01/22/17 Time of Encounter: 21:29 Assessment and Plan (1) Pleural effusion Current visit: Yes Status: Acute Patient with shortness of breath and pleuritic chest pain. On exam, lung sounds absent posteriorly on the left. CXR shows large left pleural effusion. Titrate oxygen to maintain saturation > 92% (patient wears 3L at home) Interventional Radiology consulted for possible tap tomorrow. NPO after midnight for possible procedure. (2) Pleuritic chest pain Current visit: Yes Status: Acute Patient having pleuritic chest pain related to large left pleural effusion. She reports increased pain with deep breaths with coughing. PRN oxycodone and morphine for pain. Narcan prn for respiratory depression. (3) Type 2 diabetes mellitus Current visit: Yes Status: Acute diabetic diet, npo after midnight check blood sugars Q6hr while NPO Levemir 30u tonight (patient takes 60u at home, half normal dose tonight as she is NPO for procedure) sliding scale correction dose Q6hr hypoglycemic protocol. Qualifiers: Diabetes mellitus complication status: with kidney complications Diabetes mellitus complication detail: with chronic kidney disease Diabetes mellitus terminal carman insulin use: with terminal carman use Chronic kidney disease stage: on chronic dialysis Qualified Code(s): E11.22 - Type 2 diabetes mellitus with diabetic chronic kidney disease; N18.6 - End stage renal disease; Z79.4 - group home (current) use of insulin; Z99.2 - Dependence on renal dialysis (4) HTN (hypertension) Current visit: Yes Status: Chronic Continue home doses of clonidine patch, metoprolol, lisinopril, and hydralazine. Qualifiers: Hypertension type: essential hypertension Qualified Code(s): I10 - Essential (primary) hypertension (5) ESRD (end stage renal disease) on dialysis Current visit: Yes Status: Acute Patient with ESRD on HD. She dialyses MWF through an HD catheter. She did complete dialysis today. Dr. Aly is consulted to be on board during her hospitalization in case of need for dialysis. (6) DVT prophylaxis Current visit: Yes Status: Acute SCDs. Internal Medicine - H&P: HPI Chief complaint: shortness of breath Admitted From: Emergency Dept Plans for Post Hospital Care: Home History of present illness: Ms. Benavidez is a 36 year old female with hypertension, type 2 diabetes, coronary artery disease status post stent placement, history of DVTs, peripheral vascular disease status post right BKA and left forefoot amputation, end-stage renal disease on hemodialysis Wednesday him presented to the emergency department today with left pleural effusion. Patient reports she has been feeling weak, short of breath, and is having pain on her left side, worse with taking deep breaths for the last several days. She went to dialysis today and reported her symptoms. She completed dialysis and the Center for chest x- ray which showed a large left pleural effusion. Patient has a history of previous left pleural effusion which had to be drained, last fall. Patient reports subjective fever, chronic nausea, vomiting, and abdominal pain. She denies headache, lightheadedness, chest pain, palpitations, she denies any increased swelling, or numbness or tingling. Evaluation in the emergency department included a chest x-ray which showed a large left-sided pleural effusion. EKG showed sinus rhythm with no changes from previous. Troponin was elevated at 0.10. In the setting of end-stage renal disease. D-dimer was also elevated at 4446. Chemistry was consistent with end-stage renal disease, potassium was normal at 4.2. On exam, patient alert and oriented, in no acute distress. She is morbidly obese. Heart had regular rate and rhythm. Lungs were clear with absent lung sounds in the left posterior lung don[place]ue. Abdomen was soft and nontender with positive bowel sounds. No peripheral edema. Past Med Surg Social Fam HX - Past Medical History Medical history: coronary artery disease, DVT, diabetes, dialysis, hypertension , renal disease Psychiatric history: anxiety, depression - Past Surgical History Surgical History: angioplasty/stent, hip replacement, hysterectomy, other (left knee arthroscopy, right BKA, leftt forefoot amputation) - Social History Smoking Status: Former smoker (10 pack year history) Smokeless Tobacco Status: No Alcohol use: none Drug use: none - Family History Mother Adopted: No Family Member Ethnicity: Non- Living Status: Still Living Hx Family Cardiac Disorders: Yes (Father with coronary artery disease) Hx Family Respiratory Disorders: No Hx Family Cancer: Yes (Breast) Hx Family GI Disorders: No Hx Family Endocrine Disorder: Yes (Mother with dm) Hx Family Neuromuscular Disorders: No Hx Family Neurologic Disorders: No Hx Family HEENT Disorders: No Hx Family Autoimmune Disorders: No All Systems PM: A 10-system review of systems was performed and is negative for pertinent findings except as documented above in the HPI. - Constitutional Constitutional: fever(s), no chills, no night sweats - EENT Eyes: no change in vision, no discharge, no pain, no photophobia Ears: no ear discharge, no ear pain, no tinnitus Nose, mouth and throat: no dysphagia, no nasal discharge, no neck pain, no sore throat - Cardiovascular Cardiovascular ROS IM: dyspnea, no chest pain, no diaphoresis, no lightheadedness, no palpitations, no syncope - Respiratory Respiratory: cough, dyspnea, pain on inspiration, pain with cough, no wheezing, no excessive phlegm production - Gastrointestinal Gastrointestinal: abdominal pain, nausea, vomiting, no diarrhea, no hematemesis , no hematochezia, no melena - Genitourinary Genitourinary: no change in urinary stream, no dysuria, no flank pain, no hematuria - Musculoskeletal Musculoskeletal ROS IM: no numbness, no tingling - Integumentary Integumentary IM: no rash, no unusual bruising - Neurological Neurological ROS: no confusion, no convulsions, no focal weakness, no numbness, no tingling, no tremor(s) - Hematologic/Lymphatic Hematologic/Lymphatic: no easy bruising - Constitutional Vitals: Temp Pulse Resp BP Pulse Ox 99.3 F 97 22 151/87 100 01/22/17 19:25 01/22/17 19:25 01/22/17 19:25 01/22/17 19:25 01/22/17 19:25 General appearance: Present: A&O X 3, pleasant, no acute distress, obese - Head Head exam: Present: atraumatic, normocephalic - Eye Eye exam: Present: PERRL, conjuntiva pink, sclera anicteric Pupils: Present: PERRL - Neck Neck exam general surgery: Present: supple, trachea midline. Absent: lymphadenopathy - Respiratory Respiratory exam: Absent: accessory muscle use, rales, rhonchi, wheezes Additional comments: absent breath sounds posteriorly on left - Cardiovascular Cardiovascular exam: Present: RRR, +S1, +S2. Absent: diastolic murmur, gallop, rubs, systolic murmur - GI/Abdominal GI/Abdominal exam: Present: normal bowel sounds, soft, no peritoneal signs. Absent: distended, tenderness - Extremities Exam Extremities exam: Present: warm, radial pulses palpable and symetrical. Absent : calf tenderness, cyanotic, pedal edema Additional comments: Right BKA Left forefoot amputation with dressing in place over left lateral malleolus ulcer. - Neurological Exam Neurological exam: Present: CN II-XII intact, oriented X3, no focal deficits. Absent: facial droop, speech deficit - Skin Skin exam: Present: dry, intact Internal Med - H&P Results - Labs CBC & Chem 7: 01/22/17 17:14 01/22/17 17:14 Labs: All Lab Results (24 Hours) 01/22/17 01/22/17 01/22/17 Range/Units 17:14 17:14 17:14 WBC 6.7 (4.3-11.1) K/mcL RBC 3.25 L (3.82-4.97) M/mcL Hgb 8.9 L (11.5-15.4) g/dL Hct 28.6 L (35.3-44.9) % MCV 88.0 (83.0-100.0) fL MCH 27.4 L (28.0-33.3) pg MCHC 31.1 L (31.6-35.5) g/dL RDW 15.1 H (11.5-14.5) % Plt Count 293 (140-400) K/mcL MPV 10.5 (9.4-12.4) fL Immature Gran % 0.4 (0-4) % Seg Neutrophils % 73.5 % Lymphocytes % 12.7 % Monocytes % 9.7 % Eosinophils % 3.4 % Basophils % 0.3 % Neutrophils # 4.9 (1.6-8.9) K/mcL Lymphocytes # 0.9 (0.6-4.6) K/mcL Monocytes # 0.7 (0.0-1.3) K/mcL Eosinophils # 0.2 (0.0-0.6) K/mcL Basophils # 0.0 (0.0-0.2) K/mcL D-Dimer (0-500) ng/mLFEU Sodium 134 L (136-145) mEq/L Potassium 4.2 (3.5-4.5) mEq/L Chloride 96 L (98-109) mEq/L Carbon Dioxide 26 (19-29) mEq/L BUN 26 H (7-20) mg/dL Creatinine 5.37 H (0.57-1.11) mg/dL Est GFR ( Amer) 11 L (> 60) Est GFR (Non-Af Amer) 9 L (> 60) BUN/Creatinine Ratio 5 L (6-26) Glucose 205 H (70-99) mg/dL Calculated Osmolality 289 (280-300) Calcium 9.7 (8.6-10.8) mg/dL Troponin I 0.10 H* (0-0.03) ng/mL 01/22/17 Range/Units 17:14 WBC (4.3-11.1) K/mcL RBC (3.82-4.97) M/mcL Hgb (11.5-15.4) g/dL Hct (35.3-44.9) % MCV (83.0-100.0) fL MCH (28.0-33.3) pg MCHC (31.6-35.5) g/dL RDW (11.5-14.5) % Plt Count (140-400) K/mcL MPV (9.4-12.4) fL Immature Gran % (0-4) % Seg Neutrophils % % Lymphocytes % % Monocytes % % Eosinophils % % Basophils % % Neutrophils # (1.6-8.9) K/mcL Lymphocytes # (0.6-4.6) K/mcL Monocytes # (0.0-1.3) K/mcL Eosinophils # (0.0-0.6) K/mcL Basophils # (0.0-0.2) K/mcL D-Dimer 4446 H (0-500) ng/mLFEU Sodium (136-145) mEq/L Potassium (3.5-4.5) mEq/L Chloride (98-109) mEq/L Carbon Dioxide (19-29) mEq/L BUN (7-20) mg/dL Creatinine (0.57-1.11) mg/dL Est GFR ( Amer) (> 60) Est GFR (Non-Af Amer) (> 60) BUN/Creatinine Ratio (6-26) Glucose (70-99) mg/dL Calculated Osmolality (280-300) Calcium (8.6-10.8) mg/dL Troponin I (0-0.03) ng/mL
[2017-01-22] MEDS: *HR* Morphine 2 MG/ML SYRINGE IVP PRN (22:20)
[2017-01-22] MEDS: hydrALAZINE 25 MG TABLET PO SCH (22:20)
[2017-01-22] MEDS: Insulin DETEMIR 100 UNIT/ML X5UNITS SQ SCH (22:21)
[2017-01-22 22:27] LABS: Hemoglobin A1C 9.9 %
[2017-01-22] MEDS: CloNIDine Patch 0.3 MG PATCH (WEEKLY) TP SCH (23:39)
[2017-01-22] MEDS: *HR* Promethazine 25 MG/ML VIAL IVP PRN (23:42)
[2017-01-23] MEDS: Insulin LISPRO 300 UNITS/3 ML VIAL SQ SCH ×4 (00:42→16:31)
[2017-01-23] MEDS ORDERED: Insulin NPH 100 UNIT/ML (x5UNIT) SQ ONE (01:30)
[2017-01-23] MEDS: *HR* Morphine 2 MG/ML SYRINGE IVP PRN ×4 (06:00→20:12)
[2017-01-23] MEDS: hydrALAZINE 25 MG TABLET PO SCH ×3 (06:00→20:08)
[2017-01-23 06:27] LABS: Basophils % 0.5 %; Eosinophils # 0.2 K/mcL (0.0-0.6); Eosinophils % 3.7 %; Hematocrit 29.7 % (35.3-44.9); Hemoglobin 9.3 g/dL (11.5-15.4); Immature Granulocytes % 2.1 % (0-4); Lymphocytes # 1.2 K/mcL (0.6-4.6); Lymphocytes % 19.3 %; Mean Corpuscular HGB Conc 31.3 g/dL (31.6-35.5); Mean Corpuscular Hemoglobin 27.8 pg (28.0-33.3); Mean Corpuscular Volume 88.7 fL (83.0-100.0); Mean Platelet Volume 11.1 fL (9.4-12.4); Monocytes # 0.8 K/mcL (0.0-1.3); Neutrophils # 3.9 K/mcL (1.6-8.9); Platelet Count 265 K/mcL (140-400); Red Blood Count 3.35 M/mcL (3.82-4.97); Red Cell Distribution Width 15.4 % (11.5-14.5); Segmented Neutrophils % 62.4 %
[2017-01-23 06:38] LABS: Calcium 9.5 mg/dL (8.6-10.8)
[2017-01-23 06:48] LABS: Potassium 5.3 mEq/L (3.5-4.5)
[2017-01-23] MEDS: *HR* Promethazine 25 MG/ML VIAL IVP PRN ×3 (06:49→20:10)
[2017-01-23] MEDS: Lisinopril 20 MG TABLET PO SCH ×2 (08:21→20:08)
[2017-01-23] MEDS: Isosorbide MONOnitrate (24 HR) 60 MG TAB.ER.24H PO SCH (08:22)
[2017-01-23] MEDS: Aspirin 81 MG TAB.CHEW PO SCH (08:22)
--- NOTE | 2017-01-23 09:22 | Nephrology Consult Note ---
Date of Encounter: 01/23/17 Time of Encounter: 09:05 Assessment and Plan (1) ESRD (end stage renal disease) on dialysis Current Visit: No Status: Chronic Large left pleural effusion on CXR. Possible thorocentesis today. ESRD- no HD until Wednesday, keeping [facility] schedule. History of Present Illness - Reason for Consult end stage renal disease - History of Present Illness Ms. Benavidez is a 36 year old famale with ESRD who dialyzes at [facility]. Last dialysis on Wednesday. Other PMH- coronary artery disease, stent, diabetes, hypertension, pleural effusion with drainage. Ms. Benavidez has had pleuritic chest pain and shortness of breath for last three days. She states pain increases with cough. She denies fever or chills. Denies vomiting or diarrhea. She has her usual nausea she relates to her gastroparesis. CXR shows large left pleural effusion overlying compressive atalectasis. This morning Ms. Benavidez states pain continues. She thinks she is giong to have lung drained today. Past Med Surg Social Fam HX - Past Medical History Medical history: coronary artery disease, DVT, diabetes, dialysis, hypertension , renal disease Psychiatric history: anxiety, depression - Past Surgical History Surgical History: angioplasty/stent, hip replacement, hysterectomy, other (left knee arthroscopy, right BKA, leftt forefoot amputation) - Social History Smoking Status: Former smoker (10 pack year history) Smokeless Tobacco Status: No Alcohol use: none Drug use: none - Family History Mother Adopted: No Family Member Ethnicity: Non- Living Status: Still Living Hx Family Cardiac Disorders: Yes (Father with coronary artery disease) Hx Family Respiratory Disorders: No Hx Family Cancer: Yes (Breast) Hx Family GI Disorders: No Hx Family Endocrine Disorder: Yes (Mother with dm) Hx Family Neuromuscular Disorders: No Hx Family Neurologic Disorders: No Hx Family HEENT Disorders: No Hx Family Autoimmune Disorders: No Medications and Allergies Insulin DETEMIR [Levemir] 80 unit SQ HS [id number] 12/18/15 [Rx] Aspirin 81 mg PO DAILY #30 tab.chew 12/22/15 [Rx] HYDROcodone/Acet 10/325 mg [[place] 10-325 mg] 1 tab PO QID PRN 01/21/16 [History] Darbepoetin [Aranesp] 60 mcg SQ QWEEK syringe 01/23/16 [Rx] Venlafaxine XR (24 HR) [Effexor XR] 37.5 mg PO HS 04/20/16 [History] clonazePAM [Klonopin] 2 mg PO BID PRN 04/20/16 [History] Insulin ASPART [NovoLOG] 2 - 10 unit SQ TIDWM 04/21/16 [History] Clopidogrel [Plavix] 75 mg PO DAILY tablet 04/23/16 [Rx] Omeprazole [PriLOSEC] 20 mg PO BID capsule. 04/23/16 [Rx] Atorvastatin [Lipitor] 40 mg PO DAILY 08/12/16 [History] cloNIDine [Clonidine] 0.3 mg TP Q5D 08/12/16 [History] Metoclopramide [Reglan] 5 mg PO QIDAC #30 tablet 08/18/16 [Rx] Promethazine [Phenergan] 12.5 mg PO Q6HR #10 tablet 08/23/16 [Rx] Promethazine [Phenergan] 12.5 mg RC Q6HR #10 supp.rect 08/23/16 [Rx] Isosorbide MONOnitrate (24 HR) [Imdur] 120 mg PO DAILY #60 tab.er.24h 11/13/16 [ Rx] Lisinopril [Zestril] 20 mg PO BID #60 tablet 11/13/16 [Rx] Lisinopril [Zestril] 20 mg PO BID 60 Days 11/13/16 [Rx] Lisinopril [Zestril] 20 mg PO DAILY #60 tablet 11/13/16 [Rx] Metoclopramide [Reglan] 10 mg PO Q6HR #120 ud.liq 11/13/16 [Rx] Metoprolol [Lopressor] 75 mg PO BID #90 tablet 11/13/16 [Rx] hydrALAZINE [HydrALAZINE] 100 mg PO Q8HR #120 tablet 11/13/16 [Rx] Allergies Amoxicillin Allergy (Verified 01/22/17 15:39) Hives ondansetron [From Zofran (as hydrochloride)] Adverse Reaction (Verified 15:39) Vomiting Review of Systems All Systems: reviewed and no additional remarkable complaints except as stated Exam - Vital Signs Vital signs: Initial Vital Signs Temp Pulse Resp BP Pulse Ox 99.9 F H 97 24 172/104 96 01/22/17 15:39 01/22/17 15:39 01/22/17 15:39 01/22/17 15:39 01/22/17 15:39 Vital Signs - Last 8 Hours Temp Pulse Resp BP Pulse Ox 01/23/17 07:22 98.2 F 87 16 127/81 97 01/23/17 05:14 97.6 F 89 16 151/98 100 Intake and Output 01/22/17 01/23/17 01/23/17 23:59 07:59 15:59 Intake Total 360 / 360 0 / 0 Balance 360 / 360 0 / 0 Intake: Oral 360 / 360 0 / 0 Other: Meal Nourishment/Supplement Percent of Meal Consumed 100% # Voids 0 0 Weight 94.4 kg Blood Glucose* 217 191 - General Appearance General appearance: well-developed, well-nourished, appears started age EENT: mucous membranes moist Neck: no JVD Respiratory: clear Cardiology: no edema, regular rate, regular rhythm Additional Comments: right BKA, left forefoot amp. Gastrointestinal: normoactive bowel sounds, no tenderness Integumentary: warm and dry Neurologic: alert and oriented x3 Psychiatric: mood/affect appropriate, cooperative Results - Lab Results 01/23/17 05:34 01/23/17 05:34 Most recent lab results Calcium 9.5 mg/dL (8.6-10.8) 01/23/17 05:34 Consult Discharge Plan - Plan Referrals: NONE,PCP [Primary Care Provider] -
--- NOTE | 2017-01-23 09:54 | Internal Med Progress Note ---
Date of Encounter: 01/23/17 Time of Encounter: 09:10 - Assessment and plan (1) Acute and chronic respiratory failure ([id number]) Current Visit: Yes Status: Acute Assessment and plan: Secondary to left pleural effusion Scheduled for thoracentesis later today by IR will sent pleural fluid studies will continue O2 supplementation noted to have elevated D-dimer, will obtain V/Q scan, if concerning for PE, will start anticoagulation after thoracentesis continue to monitor respiratory status Qualifiers: Respiratory failure complication: unspecified whether with hypoxia or hypercapnia Qualified Code(s): J96.20 - Acute and chronic respiratory failure , unspecified whether with hypoxia or hypercapnia (2) ESRD (end stage renal disease) on dialysis Current Visit: No Status: Chronic Assessment and plan: Nephrology marleny appreciated to continue HD MWF (3) HTN (hypertension) Current Visit: Yes Status: Chronic Assessment and plan: BP within acceptable range continue home meds Qualifiers: Hypertension type: essential hypertension Qualified Code(s): I10 - Essential (primary) hypertension (4) Type 2 diabetes mellitus Current Visit: Yes Status: Acute Assessment and plan: continue sliding scale insulin algorithm monitor FS and BG accuchecks q6h while NPO, ACHS once ADA diet is started after thoracentesis Qualifiers: Diabetes mellitus complication status: with kidney complications Diabetes mellitus complication detail: with chronic kidney disease Diabetes mellitus taker away insulin use: with nursing home use Chronic kidney disease stage: on chronic dialysis Qualified Code(s): E11.22 - Type 2 diabetes mellitus with diabetic chronic kidney disease; N18.6 - End stage renal disease; Z79.4 - record center specialist (current) use of insulin; Z99.2 - Dependence on renal dialysis (5) DVT prophylaxis Current Visit: Yes Status: Acute Assessment and plan: Heparin SQ - Subjective Interval history: Patient seen and examined at bedside. Reports of pain with deep inspiration but saturating well on nasal cannula. Has history of recurrent pleural effusions. She is angry at the staff due to her NPO status and would like to eat. NPO for pending thoracentesis by IR later this morning. - Constitutional Vitals: Temp Pulse Resp BP Pulse Ox 98.2 F 87 16 127/81 97 01/23/17 07:22 01/23/17 07:22 01/23/17 07:22 01/23/17 07:22 01/23/17 07:22 General appearance: Present: A&O X 3, no acute distress, obese - Head Head exam: Present: atraumatic, normocephalic - Eye Eye exam: Present: conjuntiva pink, sclera anicteric - Respiratory Respiratory exam: Absent: wheezes, tachypnea (dimished breath sounds on the left ) - Cardiovascular Cardiovascular exam: Present: RRR, +S1, +S2. Absent: diastolic murmur, gallop, rubs, systolic murmur - GI/Abdominal GI/Abdominal exam: Present: normal bowel sounds, soft, no peritoneal signs. Absent: distended, tenderness - Extremities Exam Extremities exam: Present: radial pulses palpable and symetrical Additional comments: s/p b/l BKA - Neurological Exam Neurological exam: Present: alert, oriented X3 - Psychiatric Psychiatric exam: Present: normal affect, normal mood Internal Medicine: Result - Labs CBC & Chem 7: 01/23/17 05:34 01/23/17 05:34 Labs: Short CBC 01/23/17 Range/Units 05:34 WBC 6.2 (4.3-11.1) K/mcL Hgb 9.3 L (11.5-15.4) g/dL Hct 29.7 L (35.3-44.9) % Plt Count 265 (140-400) K/mcL Neutrophils # 3.9 (1.6-8.9) K/mcL BMP 01/23/17 05:34 Sodium 138 Potassium 5.3 H D Chloride 96 L Carbon Dioxide 26 BUN 43 H D Creatinine 7.24 H Glucose 178 H Calcium 9.5 - ABG Interpretation ABG results: PT/INR, D-dimer D-Dimer 4446 ng/mLFEU (0-500) H 01/22/17 17:14 Consult Discharge Plan - Plan Referrals: NONE,PCP [Primary Care Provider] -
[2017-01-23] MEDS ORDERED: *HR* Morphine 2 MG/ML SYRINGE IVP ONE (10:33)
[2017-01-23] MEDS ORDERED: *HR* Morphine 2 MG/ML SYRINGE ONE (10:40)
[2017-01-23 10:52] LABS: INR 1.1; Prothrombin Time 12.1 Seconds (9.4-12.1)
[2017-01-23 10:58] LABS: Lactate Dehydrogenase 199 Units/L (159-327); Total Protein 8.3 g/dL (6.0-8.3)
[2017-01-23] MEDS ORDERED: *HR* LORazepam 2 MG/ML VIAL IVP ONE (11:24)
[2017-01-23] MEDS ORDERED: D5% in Water 1,000 ML IVC PRN ×2 (12:05→13:43)
[2017-01-23] MEDS ORDERED: Dextrose Gel 15 GM PO PRN ×4 (12:05→13:43)
[2017-01-23] MEDS ORDERED: *HR* Dextrose 50 % in Water (Syg) 50 ML SYRINGE IVP PRN ×2 (12:05→13:43)
--- NOTE | 2017-01-23 12:06 | IR Procedure Note ---
Date of procedure: 01/23/17 Consent Obtained: Written consent Timeout: Correct patient and procedure verified, Correct site verified, Time out performed, Skin prep completed Local anesthetic: Lidocaine 1% Indications: Left effusion Procedure Performed: Left chest tube placement Site/Technique: 10fr drain used. Results/Findings: Hooked to pleur evac Estimated blood loss (cc): 1 Complications: None; Tolerated procedure well Post Procedure Treatment Plan: Monitoring in pts room
[2017-01-23 12:15] LABS: RBC,Pleural Fluid 0.022 M/mcL
[2017-01-23 12:45] LABS: Amylase,Pleural Fluid 25 Units/L (No Ref Range); Glucose,Pleural Fluid 230 mg/dL (No Ref Range); LDH,Pleural Fluid 175 Units/L (No Ref Range); Triglycerides, Pleural Fluid 48 mg/dL (No Ref Range)
[2017-01-23 12:46] LABS: Total Protein,Pleural Fluid 4.1 g/dL (No Ref Range)
[2017-01-23] MEDS ORDERED: *HR* HYDROmorphone (PF) 1 MG/ML SYRINGE IVP ONE (13:15)
[2017-01-23 13:20] LABS: Appearance of Pleural Fl Bloody (Clear)
[2017-01-23] MEDS: Venlafaxine XR (24 HR) 37.5 MG CAP.ER.24H PO SCH (20:08)
[2017-01-23] MEDS: clonazePAM 1 MG TABLET PO PRN (20:08)
[2017-01-23] MEDS: *HR* Heparin 5,000 UNIT/ML VIAL SQ SCH (20:29)
[2017-01-23] MEDS ORDERED: Insulin LISPRO 300 UNITS/3 ML VIAL SQ SCH (21:00)
[2017-01-23] MEDS: Insulin DETEMIR 100 UNIT/ML X5UNITS SQ SCH (21:24)
[2017-01-24] MEDS: *HR* Promethazine 25 MG/ML VIAL IVP PRN ×3 (02:13→18:14)
[2017-01-24] MEDS: *HR* Morphine 2 MG/ML SYRINGE IVP PRN ×6 (02:14→23:41)
[2017-01-24 05:22] LABS: Basophils % 0.4 %; Eosinophils # 0.3 K/mcL (0.0-0.6); Eosinophils % 3.5 %; Hematocrit 28.4 % (35.3-44.9); Hemoglobin 8.6 g/dL (11.5-15.4); Immature Granulocytes % 0.5 % (0-4); Lymphocytes # 0.8 K/mcL (0.6-4.6); Lymphocytes % 9.5 %; Mean Corpuscular HGB Conc 30.3 g/dL (31.6-35.5); Mean Corpuscular Hemoglobin 27.6 pg (28.0-33.3); Mean Platelet Volume 10.8 fL (9.4-12.4); Monocytes # 0.9 K/mcL (0.0-1.3); Monocytes % 10.6 %; Neutrophils # 6.5 K/mcL (1.6-8.9); Platelet Count 295 K/mcL (140-400); Red Blood Count 3.12 M/mcL (3.82-4.97); Red Cell Distribution Width 15.5 % (11.5-14.5); Segmented Neutrophils % 75.5 %
[2017-01-24 05:35] LABS: Calcium 8.6 mg/dL (8.6-10.8); Magnesium 2.1 mg/dL (1.6-2.6); Phosphorous 11.1 mg/dL (2.3-4.7)
[2017-01-24 05:46] LABS: Potassium 6.7 mEq/L (3.5-4.5)
[2017-01-24] MEDS: *HR* Heparin 5,000 UNIT/ML VIAL SQ SCH ×2 (06:38→18:14)
[2017-01-24] MEDS: hydrALAZINE 25 MG TABLET PO SCH ×3 (06:39→21:15)
[2017-01-24] MEDS ORDERED: *HR* Dextrose 50 % in Water (Syg) 50 ML SYRINGE IVP ONE (06:49)
[2017-01-24] MEDS ORDERED: Insulin Human Regular 10 UNIT in 0.9 % Sodium Chloride 10 ML IV ONE (07:48)
[2017-01-24 08:10] LABS: Calcium 8.7 mg/dL (8.6-10.8)
[2017-01-24 08:20] LABS: Potassium 6.9 mEq/L (3.5-4.5)
[2017-01-24] MEDS: Calcium Chloride 1,000 MG in 0.9 % Sodium Chloride 100 ML IVPB ONE ×2 (08:24→09:03)
[2017-01-24] MEDS: Insulin LISPRO 300 UNITS/3 ML VIAL SQ SCH ×6 (08:25→21:13)
--- NOTE | 2017-01-24 09:26 | Nephrology Progress Note ---
Date of Encounter: 01/24/17 Time of Encounter: 09:00 - Assessment and Plan (1) ESRD (end stage renal disease) on dialysis Current Visit: No Status: Chronic S/P left chest tube placement for large plural effusion, [id number] cc output. Kaexylate for K 6.9. No HD today, Will dialyze Wednesday, keeping MWF schedule. Subjective Interval history: Sitting up in bed, states having pain from chest tube. Also states N/V this morning, having difficulty keeping Kaexylate down. Objective - Vital Signs Vital signs: Vital Signs Temp Pulse Resp BP Pulse Ox 01/24/17 06:00 97.7 F 80 15 105/66 95 01/23/17 22:12 97.7 F 92 16 109/68 95 01/23/17 20:30 96 01/23/17 15:57 98.7 F 85 16 123/76 98 Intake and Output 01/23/17 01/24/17 01/24/17 23:59 07:59 15:59 Intake Total 720 / 720 475 / 475 Output Total 320 / 320 25 / 25 Balance 400 / 400 450 / 450 Intake: Oral 720 / 720 475 / 475 Output: Urine 0 / 0 Chest Tube Drainage 320 / 320 25 / 25 Left Lateral Chest 320 / 320 25 / 25 Other: Blood Glucose* 196 304 - General Appearance General appearance: Present: well-developed, well-nourished, appears started age EENT: Present: mucous membranes moist Neck: Present: no JVD Respiratory: Present: clear Additional Comments: diminished on left. chest tube to drainage. Cardiology: Present: no edema, regular rate, regular rhythm Additional Comments: right BKA, left forefoot amp. Gastrointestinal: Present: normoactive bowel sounds, no tenderness Integumentary: Present: warm and dry Neurologic: Present: alert and oriented x3 Psychiatric: Present: mood/affect appropriate, cooperative - Lab 01/24/17 04:45 01/24/17 07:47 Most recent lab results Calcium 8.7 mg/dL (8.6-10.8) 01/24/17 07:47 Phosphorus 11.1 mg/dL (2.3-4.7) H 01/24/17 04:45 Magnesium 2.1 mg/dL (1.6-2.6) 01/24/17 04:45 Consult Discharge Plan - Plan Referrals: NONE,PCP [Primary Care Provider] -
--- NOTE | 2017-01-24 09:38 | Pulmonology Consult Note ---
Date of Encounter: 01/24/17 Time of Encounter: 09:38 Assessment and Plan (1) Pleural effusion Current Visit: Yes Status: Acute Patient presented with large left-sided pleural effusion which appears increased from prior studies. Suspect this is related to underlying end-stage renal disease and likely cardiogenic pulmonary edema pleural fluid analysis is somewhat interesting in that it is neutrophilic predominant and noted to be bloody. PH is normal and glucose is also high overall picture I suspect is related to uremic pleuritis and this is also the cause of her chest pain. Cannot entirely exclude the possibility of pneumonia and parapneumonic effusion on top of baseline pleural effusion however clinically I think that this is equivocal at best. Cytology is pending and we will follow this up as well Chest tube output thus far is about 1500 mL but is trailed off significantly over the last few hours recommend CT scan at this time to further evaluate pleural effusion and underlying lung parenchyma and possibility of there is any loculation to this effusion I would keep chest tube in presently but could likely be removed later if output remains less than 250 mL in 24 hours. I did flush the chest tube with 10 mL of sterile saline today. For the release of recommend blood and sputum cultures to be obtained could consider starting empiric antimicrobials such as a respiratory fluoroquinolone pending this workup. I would also discuss with the lab to see if Gram stain and culture could be sent off pleural fluid if it was not done and do not see that this has resulted in the computer as of yet I discussed with primary nephrology services no contraindication from their standpoint nonsteroidal anti-inflammatory medications are excellent agents to decrease pleuritic chest pain and could consider using this given the patient's her dialysis I am not sure exactly what the contraindication would be but it would be worth while discussing this with the nephrology service Acute on a few liters supplemental oxygen this can be weaned to keep saturation around 92% We will continue to follow (2) Acute and chronic respiratory failure ([id number]) Current Visit: Yes Status: Acute Qualifiers: Respiratory failure complication: unspecified whether with hypoxia or hypercapnia Qualified Code(s): J96.20 - Acute and chronic respiratory failure , unspecified whether with hypoxia or hypercapnia (3) ESRD (end stage renal disease) on dialysis Current Visit: Yes Status: Acute (4) Pleuritic chest pain Current Visit: Yes Status: Acute History of Present Illness Consult date: 01/24/17 Requesting physician: Gail Rosario Reason for consult: pleural effusion Chief complaint: Shortness of breath History of present illness: This is a 36-year-old woman past medical history of end-stage renal disease diabetes hypertension coronary artery disease status post stent placement in the past presenting with 2 days of pleuritic chest pain found to have a large left-sided pleural effusion status post chest tube placement by interventional radiology pulmonary was consulted for further management of the chest tube. She states that over the last week she had been feeling unwell and had increasing pain under her breast bone and under rib cage especially when taking deep breaths. Also says that she has had a dry cough and has felt "bubbling" in her chest she also reports a fever to 101F at home (measured once) that has not been noted while inpatient. She has a long-standing history of left-sided pleural effusion including undergoing thoracentesis last February at an outside facility somewhat remarkably she had a picture of the pleural fluid that was removed which appeared bloody. She does try to make all her dialysis appointments and take her medications although it has been documented that has been poor compliance at times in the past. Past Med Surg Social Fam HX - Past Medical History Medical history: coronary artery disease, DVT, diabetes, dialysis, hypertension , renal disease Psychiatric history: anxiety, depression - Past Surgical History Surgical History: angioplasty/stent, hip replacement, hysterectomy, other (left knee arthroscopy, right BKA, leftt forefoot amputation) - Social History Smoking Status: Former smoker (10 pack year history) Smokeless Tobacco Status: No Alcohol use: none Drug use: none - Family History Mother Adopted: No Family Member Ethnicity: Non- Living Status: Still Living Hx Family Cardiac Disorders: Yes (Father with coronary artery disease) Hx Family Respiratory Disorders: No Hx Family Cancer: Yes (Breast) Hx Family GI Disorders: No Hx Family Endocrine Disorder: Yes (Mother with dm) Hx Family Neuromuscular Disorders: No Hx Family Neurologic Disorders: No Hx Family HEENT Disorders: No Hx Family Autoimmune Disorders: No Medications and Allergies Aspirin 81 mg PO DAILY #30 tab.chew 12/22/15 [Rx] HYDROcodone/Acet 10/325 mg [[place] 10-325 mg] 1 tab PO QID PRN 01/21/16 [History] Venlafaxine XR (24 HR) [Effexor XR] 37.5 mg PO HS 04/20/16 [History] clonazePAM [Klonopin] 2 mg PO BID PRN 04/20/16 [History] Insulin ASPART [NovoLOG] 5 - 10 unit SQ TIDWM 04/21/16 [History] Clopidogrel [Plavix] 75 mg PO DAILY tablet 04/23/16 [Rx] Omeprazole [PriLOSEC] 20 mg PO BID capsule.dr 04/23/16 [Rx] Atorvastatin [Lipitor] 40 mg PO DAILY 08/12/16 [History] Isosorbide MONOnitrate (24 HR) [Imdur] 120 mg PO DAILY #60 tab.er.24h 11/13/16 [ Rx] Lisinopril [Zestril] 20 mg PO BID 60 Days 11/13/16 [Rx] Metoprolol [Lopressor] 75 mg PO BID #90 tablet 11/13/16 [Rx] Carvedilol [Coreg] 25 mg PO QID 01/23/17 [History] CloNIDine Patch [Catapres-TTS] 0.2 mg TD QWEEK 01/23/17 [History] Insulin DETEMIR [Levemir] 60 - 80 unit SQ HS 01/23/17 [History] Allergies Amoxicillin Allergy (Verified 01/22/17 15:39) Hives ondansetron [From Zofran (as hydrochloride)] Adverse Reaction (Verified 15:39) Vomiting All Systems: A 10-system review of systems was performed and is negative for pertinent findings except as documented above in the HPI. Physical Examination Vital Signs: Vital Signs, Last 4 Hours Temp Pulse Resp BP Pulse Ox 01/24/17 06:00 97.7 F 80 15 105/66 95 General appearance: no acute distress Eyes: nonicteric ENT: oropharynx moist Neck: supple Effort: normal Auscultation: left: diminished breath sounds, right: rales Cardiovascular: regular rate and rhythm Gastrointestinal: normoactive bowel sounds, soft, non-tender Extremities: no edema Musculoskeletal: no deformities normal mental status, non-focal exam mood appropriate Results - Laboratory Findings CBC and BMP: 01/24/17 04:45 01/24/17 07:47 PT/INR, D-dimer PT 12.1 Seconds (9.4-12.1) 01/23/17 10:22 D-Dimer 4446 ng/mLFEU (0-500) H 01/22/17 17:14 Abnormal lab findings: Abnormal lab results RBC 3.12 M/mcL (3.82-4.97) L 01/24/17 04:45 Hgb 8.6 g/dL (11.5-15.4) L 01/24/17 04:45 Hct 28.4 % (35.3-44.9) L 01/24/17 04:45 MCH 27.6 pg (28.0-33.3) L 01/24/17 04:45 MCHC 30.3 g/dL (31.6-35.5) L 01/24/17 04:45 RDW 15.5 % (11.5-14.5) H 01/24/17 04:45 D-Dimer 4446 ng/mLFEU (0-500) H 01/22/17 17:14 Sodium 128 mEq/L (136-145) L 01/24/17 07:47 Potassium 6.9 mEq/L (3.5-4.5) H* 01/24/17 07:47 Chloride 96 mEq/L (98-109) L 01/24/17 07:47 BUN 70 mg/dL (7-20) H 01/24/17 07:47 Creatinine 9.32 mg/dL (0.57-1.11) H 01/24/17 07:47 Est GFR ( Amer) 6 (> 60) L 01/24/17 07:47 Est GFR (Non-Af Amer) 5 (> 60) L 01/24/17 07:47 Glucose 292 mg/dL (70-99) H 01/24/17 07:47 POC Glucose 196 (58-89) H 01/23/17 21:23 Hemoglobin A1c 9.9 % (-5.6) H 01/22/17 17:14 Phosphorus 11.1 mg/dL (2.3-4.7) H 01/24/17 04:45 Troponin I 0.10 ng/mL (0-0.03) H* 01/22/17 17:14 Pleural Appearance Bloody (Clear) A 01/23/17 11:36 Pleural RBC 0.022 M/mcL (0.000-0.002) H 01/23/17 11:36 - Diagnostic Findings Chest x-ray: report reviewed, image reviewed - Clinical Findings Intake & Output: Intake & Output 01/23/17 01/24/17 01/24/17 23:59 07:59 15:59 Intake Total 720 / 720 475 / 475 Output Total 320 / 320 25 / Balance 400 / 400 450 / 450 Consult Discharge Plan - Plan Referrals: NONE,PCP [Primary Care Provider] -
--- NOTE | 2017-01-24 09:49 | Internal Med Progress Note ---
Date of Encounter: 01/24/17 Time of Encounter: 09:05 - Assessment and plan (1) Acute and chronic respiratory failure ([id number]) Current Visit: Yes Status: Acute Assessment and plan: Secondary to left pleural effusion s/p left chest tube placement repeat CXR requested-will follow up pulmonary input requested for management of chest tube pleural fluid analysis consistent with exudative process will continue O2 supplementation V/Q scan showed low probability for PE will closely monitor respiratory status Qualifiers: Respiratory failure complication: unspecified whether with hypoxia or hypercapnia Qualified Code(s): J96.20 - Acute and chronic respiratory failure , unspecified whether with hypoxia or hypercapnia (2) ESRD (end stage renal disease) on dialysis Current Visit: No Status: Chronic Assessment and plan: Nephrology marleny appreciated to continue HD MWF Hyperkalemia: Pt adamantly refusing kayxelate, refusing EKG risks associated with hyperkalemia including fatal arrhythmias were discussed in great detail with the patients, she states "I have had heart attacks in the past, and am willing to take that risk" (3) HTN (hypertension) Current Visit: Yes Status: Chronic Assessment and plan: BP within acceptable range continue home meds Qualifiers: Hypertension type: essential hypertension Qualified Code(s): I10 - Essential (primary) hypertension (4) Type 2 diabetes mellitus Current Visit: Yes Status: Acute Assessment and plan: Noted to be hyperglycemic added humalog 4units SQ TIDAC and increased to high dose insulin algorithm will continue to monitor FS and BG ADA/Renal diet Qualifiers: Diabetes mellitus complication status: with kidney complications Diabetes mellitus complication detail: with chronic kidney disease Diabetes mellitus assistant terminal manager insulin use: with assistant terminal manager use Chronic kidney disease stage: on chronic dialysis Qualified Code(s): E11.22 - Type 2 diabetes mellitus with diabetic chronic kidney disease; N18.6 - End stage renal disease; Z79.4 - assistant terminal manager (current) use of insulin; Z99.2 - Dependence on renal dialysis (5) DVT prophylaxis Current Visit: Yes Status: Acute Assessment and plan: Heparin SQ - Subjective Interval history: Patient seen and examined at bedside. Pt is reported to have hyperkalemia (K: 6.7) and adamantly refusing kayexalate. She has been hostile and aggressive towards the medical staff, has been screaming and asking everyone to leave her alone. S/P left chest tube placement for large left pleural effusion. No overnight issues reported - Constitutional Vitals: Temp Pulse Resp BP Pulse Ox 97.7 F 80 15 105/66 95 01/24/17 06:00 01/24/17 06:00 01/24/17 06:00 01/24/17 06:00 01/24/17 06:00 General appearance: Present: A&O X 3, no acute distress, obese - Head Head exam: Present: atraumatic, normocephalic - Eye Eye exam: Present: conjuntiva pink, sclera anicteric - Respiratory Respiratory exam: Absent: respiratory distress, wheezes (left chest tube ) - Cardiovascular Cardiovascular exam: Present: RRR, +S1, +S2. Absent: diastolic murmur, gallop, rubs, systolic murmur - GI/Abdominal GI/Abdominal exam: Present: normal bowel sounds, soft, no peritoneal signs. Absent: distended, tenderness - Extremities Exam Extremities exam: Present: warm, radial pulses palpable and symetrical Additional comments: s/p b/l BKA - Neurological Exam Neurological exam: Present: alert, oriented X3 - Psychiatric Psychiatric exam: Present: agitated Internal Medicine: Result - Labs CBC & Chem 7: 01/24/17 04:45 01/24/17 07:47 Labs: Short CBC 01/24/17 Range/Units 04:45 WBC 8.6 (4.3-11.1) K/mcL Hgb 8.6 L (11.5-15.4) g/dL Hct 28.4 L (35.3-44.9) % Plt Count 295 (140-400) K/mcL Neutrophils # 6.5 (1.6-8.9) K/mcL BMP 01/24/17 01/24/17 04:45 07:47 Sodium 130 L D 128 L Potassium 6.7 H* D 6.9 H* Chloride 95 L 96 L Carbon Dioxide 19 19 BUN 69 H D 70 H Creatinine 9.11 H 9.32 H Glucose 306 H 292 H Calcium 8.6 8.7 - ABG Interpretation ABG results: PT/INR, D-dimer PT 12.1 Seconds (9.4-12.1) 01/23/17 10:22 D-Dimer 4446 ng/mLFEU (0-500) H 01/22/17 17:14 - Impressions Impressions Pulmonary Perfusion Imaging 01/23/17 09:49 IMPRESSION: Low Probability for Pulmonary Embolus. Large left-sided pleural effusion limits evaluation of the mid and lower left lung with extensive compressive atelectasis as seen on the recent chest x-ray. D/ / Zach Adame MD / Zach Adame MD Interpreting Provider: Zach Adame MD Chest X-Ray 01/23/17 12:02 IMPRESSION: Interval decrease in size of small left pleural effusion following pleural catheter placement. D/ / Francine Covarrubias MD / Francine Covarrubias MD Interpreting Provider: Francine Covarrubias MD Consult Discharge Plan - Plan Referrals: NONE,PCP [Primary Care Provider] -
[2017-01-24] MEDS ORDERED: Calcium Gluconate 1,000 MG in D5% in Water 100 ML IVPB ONE (09:53)
[2017-01-24] MEDS: Lisinopril 20 MG TABLET PO SCH ×2 (11:27→20:22)
[2017-01-24] MEDS: Isosorbide MONOnitrate (24 HR) 60 MG TAB.ER.24H PO SCH (11:28)
[2017-01-24] MEDS: clonazePAM 1 MG TABLET PO PRN (11:28)
[2017-01-24] MEDS: Aspirin 81 MG TAB.CHEW PO SCH (11:28)
[2017-01-24 18:06] LABS: Calcium 9.1 mg/dL (8.6-10.8)
--- NOTE | 2017-01-24 18:10 | Electrocardiograph Report ---
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
[2017-01-24 18:11] LABS: Potassium 6.9 mEq/L (3.5-4.5)
[2017-01-24] MEDS: Venlafaxine XR (24 HR) 37.5 MG CAP.ER.24H PO SCH (20:22)
[2017-01-24] MEDS: Insulin DETEMIR 100 UNIT/ML X5UNITS SQ SCH (21:12)
[2017-01-25] MEDS: *HR* Promethazine 25 MG/ML VIAL IVP PRN ×4 (00:44→21:31)
[2017-01-25] MEDS: *HR* Morphine 2 MG/ML SYRINGE IVP PRN ×5 (03:35→21:30)
[2017-01-25 03:50] LABS: Basophils % 0.1 %; Eosinophils # 0.3 K/mcL (0.0-0.6); Eosinophils % 3.7 %; Hematocrit 24.9 % (35.3-44.9); Hemoglobin 7.5 g/dL (11.5-15.4); Immature Granulocytes % 0.5 % (0-4); Lymphocytes # 0.8 K/mcL (0.6-4.6); Lymphocytes % 9.6 %; Mean Corpuscular HGB Conc 30.1 g/dL (31.6-35.5); Mean Corpuscular Hemoglobin 27.6 pg (28.0-33.3); Mean Corpuscular Volume 91.5 fL (83.0-100.0); Mean Platelet Volume 10.6 fL (9.4-12.4); Monocytes # 0.8 K/mcL (0.0-1.3); Monocytes % 10.5 %; Neutrophils # 6.1 K/mcL (1.6-8.9); Platelet Count 261 K/mcL (140-400); Red Blood Count 2.72 M/mcL (3.82-4.97); Red Cell Distribution Width 15.8 % (11.5-14.5); Segmented Neutrophils % 75.6 %
[2017-01-25 04:02] LABS: Calcium 8.8 mg/dL (8.6-10.8); Magnesium 2.3 mg/dL (1.6-2.6); Phosphorous 11.7 mg/dL (2.3-4.7)
[2017-01-25 04:07] LABS: Potassium 7.4 mEq/L (3.5-4.5)
[2017-01-25] MEDS ORDERED: *HR* Dextrose 50 % in Water (Syg) 50 ML SYRINGE IVP ONE (04:27)
[2017-01-25] MEDS ORDERED: Insulin Human Regular 15 UNIT in 0.9 % Sodium Chloride 10 ML IV ONE (04:27)
[2017-01-25 04:30] LABS: Platelet Estimate Normal (Normal)
[2017-01-25] MEDS: *HR* Heparin 5,000 UNIT/ML VIAL SQ SCH ×2 (04:46→17:29)
[2017-01-25] MEDS: hydrALAZINE 25 MG TABLET PO SCH ×2 (04:48→17:29)
[2017-01-25] MEDS ORDERED: Calcium Gluconate 2,000 MG in D5% in Water 100 ML IVPB ONE (06:11)
[2017-01-25] MEDS ORDERED: Albuterol 2.5 MG/3 ML NEBULIZER IH ONE (06:12)
--- NOTE | 2017-01-25 06:15 | Event Note ---
Date of Encounter: 01/25/17 Time of Encounter: 06:12 I was called by the patient's nurse to evaluate for hyperkalemia. Potassium increased to 7.4 from 6.9. The patient refused to take Kayexalate. She is in no acute distress arousable. Heart is regular. I obtained a stat EKG which shows normal sinus rhythm, narrow QRS complex, peaked T waves in precordial leads. I will order IV insulin with IV dextrose, IV bicarbonate, IV calcium chloride, inhaled albuterol. 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
[2017-01-25] MEDS: Insulin LISPRO 300 UNITS/3 ML VIAL SQ SCH ×7 (08:07→21:30)
[2017-01-25] MEDS: Aspirin 81 MG TAB.CHEW PO SCH (08:11)
[2017-01-25] MEDS ORDERED: 0.9 % Sodium Chloride 250 ML IVC PRN ×2 (09:17→09:21)
--- NOTE | 2017-01-25 09:27 | Nephrology Progress Note ---
Date of Encounter: 01/25/17 Time of Encounter: 09:15 - Assessment and Plan (1) ESRD (end stage renal disease) on dialysis Current Visit: No Status: Chronic S/P left chest tube placement for large plural effusion, initial 1370 cc output. HD scheduled for first this AM. for K 7.4.today, orders given. Subjective Interval history: Sitting up in bed, states having pain from chest tube. Emesis this AM. K 7.4. Having difficulty keeping Kaexylate down. Objective - Vital Signs Vital signs: Vital Signs Temp Pulse Resp BP Pulse Ox 01/25/17 07:33 97.7 F 76 16 108/61 96 01/25/17 06:36 18 92 01/24/17 23:58 78 13 113/63 96 01/24/17 21:12 98.8 F 85 18 128/64 98 01/24/17 20:30 83 18 98 01/24/17 16:00 98.3 F 83 18 133/72 98 01/24/17 12:00 97.7 F 85 15 142/76 98 Intake and Output 01/24/17 01/25/17 01/25/17 23:59 07:59 15:59 Intake Total 400 / 400 Output Total 90 / 90 Balance 310 / 310 Intake: Oral 400 / 400 Output: Urine 0 / 0 Chest Tube Drainage 90 / 90 Left Lateral Chest 90 / 90 Other: Blood Glucose* 104 105 - General Appearance General appearance: Present: well-developed, well-nourished, appears started age EENT: Present: mucous membranes moist Neck: Present: no JVD Respiratory: Present: clear Cardiology: Present: no edema, regular rate, regular rhythm Additional Comments: right BKA, left forefoot amp Gastrointestinal: Present: normoactive bowel sounds, no tenderness Integumentary: Present: warm and dry Neurologic: Present: alert and oriented x3 Psychiatric: Present: mood/affect appropriate, cooperative - Lab 01/25/17 03:30 01/25/17 03:30 Most recent lab results Calcium 8.8 mg/dL (8.6-10.8) 01/25/17 03:30 Phosphorus 11.7 mg/dL (2.3-4.7) H 01/25/17 03:30 Magnesium 2.3 mg/dL (1.6-2.6) 01/25/17 03:30 Consult Discharge Plan - Plan Referrals: NONE,PCP [Primary Care Provider] -
[2017-01-25] MEDS ORDERED: *HR* Promethazine 25 MG/ML VIAL IVP ONE (09:29)
[2017-01-25] MEDS ORDERED: 0.9 % Sodium Chloride 1,000 ML PRIME SCH (09:30)
--- NOTE | 2017-01-25 09:58 | Pulmonology Progress Note ---
Date of Encounter: 01/25/17 Time of Encounter: 07:55 Assessment and Plan (1) Pleural effusion Current Visit: Yes Status: Acute Patient is to have drainage and output around 200 mL. Continue with chest tube drainage at this time and fluid to be sent for microbiology. (2) ESRD (end stage renal disease) on dialysis Current Visit: Yes Status: Acute Patient will have dialysis which I feel it will help this effusion. Subjective Principal diagnosis: Pleural effusion Interval history: Patient denies any significant changes and continued to drain the chest tube. Objective PUL Vital signs: Last Vital Signs Temp 97.7 F 01/25/17 07:33 Pulse 76 01/25/17 07:33 Resp 16 01/25/17 07:33 BP 108/61 01/25/17 07:33 Pulse Ox 96 01/25/17 07:33 General appearance: appears uncomfortable Eyes: nonicteric Mallampati (class): 3 Neck: supple Effort: normal Auscultation: left: diminished breath sounds (Chest tube in the left side), right: clear Percussion: left: dull Cardiovascular: regular rate and rhythm Gastrointestinal: normoactive bowel sounds Extremities: no cyanosis normal mental status, non-focal exam mood appropriate Results - Laboratory Findings CBC and BMP: 01/25/17 03:30 01/25/17 03:30 PT/INR, D-dimer PT 12.1 Seconds (9.4-12.1) 01/23/17 10:22 D-Dimer 4446 ng/mLFEU (0-500) H 01/22/17 17:14 Abnormal lab findings: Abnormal lab results RBC 2.72 M/mcL (3.82-4.97) L 01/25/17 03:30 Hgb 7.5 g/dL (11.5-15.4) L 01/25/17 03:30 Hct 24.9 % (35.3-44.9) L 01/25/17 03:30 MCH 27.6 pg (28.0-33.3) L 01/25/17 03:30 MCHC 30.1 g/dL (31.6-35.5) L 01/25/17 03:30 RDW 15.8 % (11.5-14.5) H 01/25/17 03:30 D-Dimer 4446 ng/mLFEU (0-500) H 01/22/17 17:14 Sodium 129 mEq/L (136-145) L 01/25/17 03:30 Potassium 7.4 mEq/L (3.5-4.5) H* 01/25/17 03:30 Chloride 93 mEq/L (98-109) L 01/25/17 03:30 BUN 86 mg/dL (7-20) H 01/25/17 03:30 Creatinine 10.63 mg/dL (0.57-1.11) H 01/25/17 03:30 Est GFR ( Amer) 5 (> 60) L 01/25/17 03:30 Est GFR (Non-Af Amer) 4 (> 60) L 01/25/17 03:30 Glucose 154 mg/dL (70-99) H 01/25/17 03:30 POC Glucose 105 (58-89) H 01/25/17 07:37 Hemoglobin A1c 9.9 % (-5.6) H 01/22/17 17:14 Phosphorus 11.7 mg/dL (2.3-4.7) H 01/25/17 03:30 Troponin I 0.10 ng/mL (0-0.03) H* 01/22/17 17:14 Pleural Appearance Bloody (Clear) A 01/23/17 11:36 Pleural RBC 0.022 M/mcL (0.000-0.002) H 01/23/17 11:36 - Clinical Findings Intake & Output: Intake & Output 01/24/17 01/25/17 01/25/17 23:59 07:59 15:59 Intake Total 400 / 400 Output Total 90 / 90 Balance 310 / 310 Consult Discharge Plan - Plan Referrals: NONE,PCP [Primary Care Provider] -
--- NOTE | 2017-01-25 11:58 | Internal Med Progress Note ---
Date of Encounter: 01/25/17 Time of Encounter: 11:57 - Assessment and plan (1) Acute and chronic respiratory failure ([id number]) Current Visit: Yes Status: Acute Assessment and plan: Secondary to left pleural effusion s/p left chest tube placement pulmonary input appreciated will continue O2 supplementation V/Q scan showed low probability for PE will closely monitor respiratory status Qualifiers: Respiratory failure complication: unspecified whether with hypoxia or hypercapnia Qualified Code(s): J96.20 - Acute and chronic respiratory failure , unspecified whether with hypoxia or hypercapnia (2) ESRD (end stage renal disease) on dialysis Current Visit: No Status: Chronic Assessment and plan: Nephrology marleny appreciated to continue HD MWF Hyperkalemia: Pt agreed to kayexalate this morning however did not take the medication completely scheduled for HD today (3) HTN (hypertension) Current Visit: Yes Status: Chronic Assessment and plan: BP within acceptable range continue home meds Qualifiers: Hypertension type: essential hypertension Qualified Code(s): I10 - Essential (primary) hypertension (4) Type 2 diabetes mellitus Current Visit: Yes Status: Acute Assessment and plan: Noted to be hyperglycemic continue humalog 4units SQ TIDAC and high dose insulin algorithm will continue to monitor FS and BG ADA/Renal diet Qualifiers: Diabetes mellitus complication status: with kidney complications Diabetes mellitus complication detail: with chronic kidney disease Diabetes mellitus prison insulin use: with prison use Chronic kidney disease stage: on chronic dialysis Qualified Code(s): E11.22 - Type 2 diabetes mellitus with diabetic chronic kidney disease; N18.6 - End stage renal disease; Z79.4 - oysterman (current) use of insulin; Z99.2 - Dependence on renal dialysis (5) DVT prophylaxis Current Visit: Yes Status: Acute Assessment and plan: Heparin SQ - Subjective Interval history: Patient seen and examined at bedside. Pt noted to be hyperkalemic again, agreed to taking her Kayexalate today, however continues to demonstrate drug seeking behavior. Refusing NSAID, PO pain medication and only demanding dilaudid and phenergan IVP simultaneously. She has been screaming and aggressive towards the staff and has been noncompliant with her care. scheduled for HD today (01/25/17) S/P left chest tube placement for large left pleural effusion. No overnight issues reported - Constitutional Vitals: Temp Pulse Resp BP Pulse Ox 97.7 F 76 16 121/67 96 01/25/17 07:33 01/25/17 07:33 01/25/17 07:33 01/25/17 09:59 01/25/17 07:33 General appearance: Present: A&O X 3, no acute distress, obese - Head Head exam: Present: atraumatic, normocephalic - Eye Eye exam: Present: conjuntiva pink, sclera anicteric - Respiratory Respiratory exam: Present: CTAB. Absent: accessory muscle use, rales, rhonchi, wheezes - Cardiovascular Cardiovascular exam: Present: RRR, +S1, +S2. Absent: diastolic murmur, gallop, rubs, systolic murmur - GI/Abdominal GI/Abdominal exam: Present: normal bowel sounds, soft, no peritoneal signs. Absent: distended, tenderness - Extremities Exam Extremities exam: Present: warm, radial pulses palpable and symetrical. Absent : calf tenderness (BKA ) - Neurological Exam Neurological exam: Present: alert, oriented X3 - Psychiatric Psychiatric exam: Present: agitated Internal Medicine: Result - Labs CBC & Chem 7: 01/25/17 03:30 01/25/17 03:30 Labs: Short CBC 01/25/17 Range/Units 03:30 WBC 8.0 (4.3-11.1) K/mcL Hgb 7.5 L (11.5-15.4) g/dL Hct 24.9 L (35.3-44.9) % Plt Count 261 (140-400) K/mcL Neutrophils # 6.1 (1.6-8.9) K/mcL BMP 01/24/17 01/25/17 17:42 03:30 Sodium 131 L 129 L Potassium 6.9 H* 7.4 H* Chloride 95 L 93 L Carbon Dioxide 19 21 BUN 79 H 86 H Creatinine 9.95 H 10.63 H Glucose 117 H 154 H Calcium 9.1 8.8 - ABG Interpretation ABG results: PT/INR, D-dimer PT 12.1 Seconds (9.4-12.1) 01/23/17 10:22 D-Dimer 4446 ng/mLFEU (0-500) H 01/22/17 17:14 - Impressions Impressions Chest CT 01/24/17 10:11 IMPRESSION: Left-sided chest tube terminating in the posteroinferior left lung. Moderate to large left pleural effusion with small apical left hydropneumothorax. Patchy ground-glass attenuation throughout both lungs likely related to edema as well as partial consolidation in the lower lungs which may represent atelectasis. D/ / 01/24/2017 16:46:43 Bernice Arevalo MD / Corinne Brown Interpreting Provider: Bernice Arevalo MD Consult Discharge Plan - Plan Referrals: NONE,PCP [Primary Care Provider] -
[2017-01-25] MEDS ORDERED: 0.9 % Sodium Chloride 2,000 ML ONE (15:33)
--- NOTE | 2017-01-25 17:04 | Electrocardiograph Report ---
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
[2017-01-25] MEDS: Isosorbide MONOnitrate (24 HR) 60 MG TAB.ER.24H PO SCH (17:28)
[2017-01-25] MEDS: clonazePAM 1 MG TABLET PO PRN (17:28)
--- NOTE | 2017-01-25 18:24 | Electrocardiograph Report ---
[address] [place] [address] Test Date: 2017-01-25 Pat Name: Freya Benavidez Department: 111 Room: 2NE31 Gender: F [employer] Operator: KIM : [id number] Requested By: Gail Rosario Order Number: [id number] Reading MD: Tone Bowen MD Measurements Intervals Sylvester Rate: 75 P: 32 FL: 198 QRS: -11 QRSD: 122 T: 112 QT: 384 QTc: 413 Interpretive Statements SINUS RHYTHM ATYPICAL LBBB Poor R wave progression Electronically Signed On 01-25-2017 18:22:41 EDT by Tone Bowen MD
[2017-01-25] MEDS: Venlafaxine XR (24 HR) 37.5 MG CAP.ER.24H PO SCH (21:29)
[2017-01-25] MEDS: Insulin DETEMIR 100 UNIT/ML X5UNITS SQ SCH (21:30)
[2017-01-26] MEDS: hydrALAZINE 25 MG TABLET PO SCH ×4 (00:38→17:12)
[2017-01-26] MEDS: *HR* Morphine 2 MG/ML SYRINGE IVP PRN ×4 (02:42→23:22)
[2017-01-26] MEDS: *HR* Heparin 5,000 UNIT/ML VIAL SQ SCH ×2 (06:26→17:14)
[2017-01-26] MEDS: *HR* Promethazine 25 MG/ML VIAL IVP PRN ×3 (06:26→18:24)
[2017-01-26 06:55] LABS: Calcium 8.2 mg/dL (8.6-10.8); Magnesium 2.1 mg/dL (1.6-2.6); Phosphorous 9.7 mg/dL (2.3-4.7)
[2017-01-26 07:05] LABS: Hematocrit 23.8 % (35.3-44.9); Hemoglobin 7.1 g/dL (11.5-15.4); Immature Granulocytes % 0.7 % (0-4); Lymphocytes % 7.3 %; Mean Corpuscular HGB Conc 29.8 g/dL (31.6-35.5); Mean Corpuscular Hemoglobin 27.4 pg (28.0-33.3); Mean Corpuscular Volume 91.9 fL (83.0-100.0); Mean Platelet Volume 11.1 fL (9.4-12.4); Monocytes % 11.9 %; Platelet Count 231 K/mcL (140-400); Red Blood Count 2.59 M/mcL (3.82-4.97); Red Cell Distribution Width 16.1 % (11.5-14.5)
[2017-01-26 07:06] LABS: Basophils % 0.1 %; Eosinophils # 0.1 K/mcL (0.0-0.6); Lymphocytes # 0.5 K/mcL (0.6-4.6); Monocytes # 0.8 K/mcL (0.0-1.3); Neutrophils # 5.4 K/mcL (1.6-8.9)
--- NOTE | 2017-01-26 08:10 | Pulmonology Progress Note ---
Date of Encounter: 01/26/17 Time of Encounter: 07:50 Assessment and Plan (1) Pleural effusion Current Visit: Yes Status: Acute Patient is to have drainage and output around 200 mL. Continue with chest tube drainage at this time and fluid to be sent for microbiology. 01/26 Fluid drainage is less, to check Portable CXR and possible removal of the chest tube (2) ESRD (end stage renal disease) on dialysis Current Visit: Yes Status: Acute Patient will have dialysis which I feel it will help this effusion. Subjective Principal diagnosis: Pleural effusion Interval history: Patient denies any significant changes and continued to drain the chest tube. 01/26 Patient feels slightly better Objective PUL Vital signs: Last Vital Signs Temp 98.5 F 01/26/17 07:44 Pulse 89 01/26/17 07:44 Resp 16 01/26/17 07:44 BP 97/62 01/26/17 07:44 Pulse Ox 99 01/26/17 07:44 General appearance: no acute distress Eyes: nonicteric Mallampati (class): 3 Effort: normal Auscultation: left: diminished breath sounds, right: clear Percussion: left: dull (chest tube in place) Cardiovascular: regular rate and rhythm Gastrointestinal: normoactive bowel sounds Extremities: no cyanosis normal mental status, non-focal exam mood appropriate Results - Laboratory Findings CBC and BMP: 01/26/17 06:26 01/26/17 06:26 PT/INR, D-dimer PT 12.1 Seconds (9.4-12.1) 01/23/17 10:22 D-Dimer 4446 ng/mLFEU (0-500) H 01/22/17 17:14 Abnormal lab findings: Abnormal lab results RBC 2.59 M/mcL (3.82-4.97) L 01/26/17 06:26 Hgb 7.1 g/dL (11.5-15.4) L 01/26/17 06:26 Hct 23.8 % (35.3-44.9) L 01/26/17 06:26 MCH 27.4 pg (28.0-33.3) L 01/26/17 06:26 MCHC 29.8 g/dL (31.6-35.5) L 01/26/17 06:26 RDW 16.1 % (11.5-14.5) H 01/26/17 06:26 Lymphocytes # 0.5 K/mcL (0.6-4.6) L 01/26/17 06:26 D-Dimer 4446 ng/mLFEU (0-500) H 01/22/17 17:14 Sodium 133 mEq/L (136-145) L 01/26/17 06:26 Potassium 5.0 mEq/L (3.5-4.5) H D 01/26/17 06:26 Chloride 96 mEq/L (98-109) L 01/26/17 06:26 BUN 63 mg/dL (7-20) H D 01/26/17 06:26 Creatinine 7.86 mg/dL (0.57-1.11) H 01/26/17 06:26 Est GFR ( Amer) 7 (> 60) L 01/26/17 06:26 Est GFR (Non-Af Amer) 6 (> 60) L 01/26/17 06:26 Glucose 281 mg/dL (70-99) H 01/26/17 06:26 POC Glucose 105 (58-89) H 01/25/17 07:37 Hemoglobin A1c 9.9 % (-5.6) H 01/22/17 17:14 Calculated Osmolality 304 (280-300) H 01/26/17 06:26 Calcium 8.2 mg/dL (8.6-10.8) L 01/26/17 06:26 Phosphorus 9.7 mg/dL (2.3-4.7) H 01/26/17 06:26 Troponin I 0.10 ng/mL (0-0.03) H* 01/22/17 17:14 Pleural Appearance Bloody (Clear) A 01/23/17 11:36 Pleural RBC 0.022 M/mcL (0.000-0.002) H 01/23/17 11:36 - Clinical Findings Intake & Output: Intake & Output 01/25/17 01/26/17 01/26/17 23:59 07:59 15:59 Output Total 425 / 425 Balance -425 / -425 Weight 99.5 kg Consult Discharge Plan - Plan Referrals: NONE,PCP [Primary Care Provider] -
--- NOTE | 2017-01-26 08:34 | Nephrology Progress Note ---
Date of Encounter: 01/26/17 Time of Encounter: 08:31 - Assessment and Plan (1) ESRD (end stage renal disease) Current Visit: No Status: Chronic Patient will continue to receive dialysis every Wednesday. She will be placed on Aranesp for anemia. She may require blood transfusion with dialysis tomorrow. (2) Anemia in chronic kidney disease (CKD) Current Visit: Yes Status: Acute Qualifiers: Chronic kidney disease stage: on chronic dialysis Qualified Code(s): N18.6 - End stage renal disease; D63.1 - Anemia in chronic kidney disease; Z99.2 - Dependence on renal dialysis (3) End stage renal disease on dialysis due to type 1 diabetes mellitus Current Visit: Yes Status: Acute (4) Pleural effusion, left Current Visit: No Status: Acute Subjective Principal diagnosis: Pleural effusion Interval history: Patient reports her breathing is improved. She continues to have chest tube in place. She received dialysis yesterday. Hemoglobin is 7.1. She will be started on Aranesp. She may require transfusion with her next dialysis tomorrow. Blood pressure is controlled. Objective - Vital Signs Vital signs: Vital Signs Temp Pulse Resp BP Pulse Ox 01/26/17 07:44 98.5 F 89 16 97/62 99 01/26/17 06:16 103/51 01/26/17 05:19 97.8 F 91 12 102/58 94 01/26/17 00:00 105/48 01/25/17 21:48 97.7 F 99 17 120/62 98 Intake and Output 01/25/17 01/26/17 01/26/17 23:59 07:59 15:59 Output Total 425 / 425 Balance -425 / -425 -10 / -10 Output: Chest Tube Drainage 425 / 425 Left Lateral Chest 425 / 425 Other: Weight 99.5 kg Blood Glucose* 296 Patient Weight 01/26/17 23:59 Weight 99.5 kg - General Appearance Exam: Patient is alert and oriented. She is in no acute distress. She appears chronically ill. Lungs demonstrate diminished breath sounds in the bases. Heart regular rate and rhythm with a 2/6 talk ejection murmur. Abdomen is benign. There is no lower extremity swelling. Patient is status post right below-knee amputation. There is a tunnel dialysis catheter in the right chest. - Lab 01/26/17 06:26 01/26/17 06:26 Most recent lab results Calcium 8.2 mg/dL (8.6-10.8) L 01/26/17 06:26 Phosphorus 9.7 mg/dL (2.3-4.7) H 01/26/17 06:26 Magnesium 2.1 mg/dL (1.6-2.6) 01/26/17 06:26 Consult Discharge Plan - Plan Referrals: NONE,PCP [Primary Care Provider] -
[2017-01-26] MEDS ORDERED: Darbepoetin 100 MCG/0.5 ML SYRINGE SQ SCH (08:45)
[2017-01-26] MEDS: Isosorbide MONOnitrate (24 HR) 60 MG TAB.ER.24H PO SCH (09:32)
[2017-01-26] MEDS: Aspirin 81 MG TAB.CHEW PO SCH (09:32)
[2017-01-26] MEDS: Insulin LISPRO 300 UNITS/3 ML VIAL SQ SCH ×7 (09:33→23:36)
[2017-01-26] MEDS ORDERED: Mag Hydrox/Al Hydrox/Simeth 30 ML UDC PO PRN (16:25)
--- NOTE | 2017-01-26 19:01 | Internal Med Progress Note ---
Date of Encounter: 01/26/17 Time of Encounter: 18:57 - Assessment and plan (1) Anemia Current Visit: No Status: Chronic Qualifiers: Anemia type: unspecified type Qualified Code(s): D64.9 - Anemia, unspecified (2) Hyperkalemia Current Visit: No Status: Acute (3) Pleural effusion Current Visit: Yes Status: Acute (4) ESRD (end stage renal disease) on dialysis Current Visit: Yes Status: Acute (5) Pleuritic chest pain Current Visit: Yes Status: Acute (6) Type 2 diabetes mellitus Current Visit: Yes Status: Acute Qualifiers: Diabetes mellitus complication status: with kidney complications Diabetes mellitus complication detail: with chronic kidney disease Diabetes mellitus senior living insulin use: with senior living use Chronic kidney disease stage: on chronic dialysis Qualified Code(s): E11.22 - Type 2 diabetes mellitus with diabetic chronic kidney disease; N18.6 - End stage renal disease; 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 Benavidez is a 36 year old female with hypertension, type 2 diabetes, coronary artery disease status post stent placement, history of DVTs, peripheral vascular disease status post right BKA and left forefoot amputation, end-stage renal disease on hemodialysis Wednesday presented to ER with left- sided pleuritic chest pain and chest x-ray left-sided effusion noted. Stain Dipper consulted to do a chest tube and cytology is pending. Patient is still complaining of left-sided pleuritic chest pain. Chest tube is still draining. Chest x-ray did not show any pneumothorax. Post chest tube was removed patient planned to be discharged. - Constitutional Vitals: Temp Pulse Resp BP Pulse Ox 97.6 F 82 16 125/79 97 01/26/17 15:53 01/26/17 15:53 01/26/17 15:53 01/26/17 15:53 01/26/17 15:53 General appearance: Present: A&O X 3, no acute distress, obese - Head Head exam: Present: atraumatic, normocephalic - Eye Eye exam: Present: PERRL, conjuntiva pink, sclera anicteric Pupils: Present: PERRL - Neck Neck exam general surgery: Present: supple, trachea midline. Absent: lymphadenopathy - Respiratory Respiratory exam: Present: CTAB. Absent: accessory muscle use, rales, rhonchi, wheezes - Cardiovascular Cardiovascular exam: Present: RRR, +S1, +S2. Absent: diastolic murmur, gallop, rubs, systolic murmur - GI/Abdominal GI/Abdominal exam: Present: normal bowel sounds, soft, no peritoneal signs. Absent: distended, tenderness - Extremities Exam Extremities exam: Present: warm, radial pulses palpable and symetrical. Absent : calf tenderness, cyanotic, pedal edema - Neurological Exam Neurological exam: Present: CN II-XII intact, oriented X3, no focal deficits. Absent: pronater drift, facial droop, speech deficit - Skin Skin exam: Present: dry, intact Internal Medicine: Result - Labs CBC & Chem 7: 01/26/17 06:26 01/26/17 06:26 Labs: Short CBC 01/26/17 Range/Units 06:26 WBC 6.9 (4.3-11.1) K/mcL Hgb 7.1 L (11.5-15.4) g/dL Hct 23.8 L (35.3-44.9) % Plt Count 231 (140-400) K/mcL Neutrophils # 5.4 (1.6-8.9) K/mcL BMP 01/26/17 06:26 Sodium 133 L Potassium 5.0 H D Chloride 96 L Carbon Dioxide 23 BUN 63 H D Creatinine 7.86 H Glucose 281 H Calcium 8.2 L - ABG Interpretation ABG results: PT/INR, D-dimer PT 12.1 Seconds (9.4-12.1) 01/23/17 10:22 D-Dimer 4446 ng/mLFEU (0-500) H 01/22/17 17:14 - Impressions Impressions Chest X-Ray 01/26/17 07:55 IMPRESSION: Stable left-sided chest tube. No evidence of pneumothorax. Stable cardiomegaly. Stable low lung volumes. Mild pulmonary vascular congestion. Atelectasis and moderate pleural effusion at the left lung base, stable. D/ / Home Horvath MD / Home Horvath MD Interpreting Provider: Home Horvath MD Consult Discharge Plan - Plan Referrals: NONE,PCP [Primary Care Provider] -
[2017-01-26] MEDS: Venlafaxine XR (24 HR) 37.5 MG CAP.ER.24H PO SCH (23:21)
[2017-01-26] MEDS: Insulin DETEMIR 100 UNIT/ML X5UNITS SQ SCH (23:37)
[2017-01-27] MEDS: hydrALAZINE 25 MG TABLET PO SCH ×3 (01:29→16:48)
[2017-01-27] MEDS: *HR* Promethazine 25 MG/ML VIAL IVP PRN ×4 (01:31→23:01)
[2017-01-27 04:02] LABS: Albumin 2.3 g/dL (3.5-5.0); Albumin/Globulin Ratio 0.5 (1.1-2.2); Bilirubin,Total 0.6 mg/dL (0.2-1.2); Calcium 8.4 mg/dL (8.6-10.8); Potassium 5.5 mEq/L (3.5-4.5); Total Protein 7.3 g/dL (6.0-8.3)
[2017-01-27 04:11] LABS: Basophils % 0.2 %; Eosinophils # 0.2 K/mcL (0.0-0.6); Eosinophils % 2.2 %; Hematocrit 21.9 % (35.3-44.9); Hemoglobin 6.6 g/dL (11.5-15.4); Immature Granulocytes % 0.9 % (0-4); Lymphocytes # 0.7 K/mcL (0.6-4.6); Lymphocytes % 8.7 %; Mean Corpuscular HGB Conc 30.1 g/dL (31.6-35.5); Mean Corpuscular Hemoglobin 27.7 pg (28.0-33.3); Mean Platelet Volume 11.1 fL (9.4-12.4); Monocytes # 0.8 K/mcL (0.0-1.3); Monocytes % 9.4 %; Neutrophils # 6.4 K/mcL (1.6-8.9); Platelet Count 221 K/mcL (140-400); Red Blood Count 2.38 M/mcL (3.82-4.97); Red Cell Distribution Width 16.1 % (11.5-14.5); Segmented Neutrophils % 78.6 %
[2017-01-27] MEDS: *HR* Heparin 5,000 UNIT/ML VIAL SQ SCH ×2 (06:10→16:49)
[2017-01-27] MEDS: *HR* Morphine 2 MG/ML SYRINGE IVP PRN ×4 (06:26→22:17)
[2017-01-27] MEDS: Insulin LISPRO 300 UNITS/3 ML VIAL SQ SCH ×7 (07:52→20:24)
--- NOTE | 2017-01-27 07:54 | Pulmonology Progress Note ---
Date of Encounter: 01/27/17 Time of Encounter: 08:10 Assessment and Plan (1) Pleural effusion Current Visit: Yes Status: Acute Patient is to have drainage and output around 200 mL. Continue with chest tube drainage at this time and fluid to be sent for microbiology. 01/26 Fluid drainage is less, to check Portable CXR and possible removal of the chest tube 01/27 since there is minimal drainage of the fluid, chest tube removed without any immediate complication. I suspect this is all secondary to her underlying renal disease and most likely it will reaccumulate. Considering her pleurX catheter is reasonable which would be assessed as outpatient. (2) ESRD (end stage renal disease) on dialysis Current Visit: Yes Status: Acute Patient will have dialysis which I feel it will help this effusion. Subjective Principal diagnosis: Pleural effusion Interval history: Patient denies any significant changes and continued to drain the chest tube. 01/26 Patient feels slightly better 82/ no significant changes, patient has minimal drainage of the fluid. Objective PUL Vital signs: Last Vital Signs Temp 97.8 F 01/27/17 07:45 Pulse 82 01/27/17 07:45 Resp 16 01/27/17 07:45 BP 149/92 01/27/17 07:45 Pulse Ox 95 01/27/17 07:45 General appearance: no acute distress Eyes: nonicteric Neck: supple Effort: normal Auscultation: left: diminished breath sounds, right: clear Percussion: left: dull Cardiovascular: regular rate and rhythm Gastrointestinal: normoactive bowel sounds Extremities: no cyanosis normal mental status, non-focal exam Results - Laboratory Findings CBC and BMP: 01/27/17 03:39 01/27/17 03:39 PT/INR, D-dimer PT 12.1 Seconds (9.4-12.1) 01/23/17 10:22 D-Dimer 4446 ng/mLFEU (0-500) H 01/22/17 17:14 Abnormal lab findings: Abnormal lab results RBC 2.38 M/mcL (3.82-4.97) L 01/27/17 03:39 Hgb 6.6 g/dL (11.5-15.4) L 01/27/17 03:39 Hct 21.9 % (35.3-44.9) L 01/27/17 03:39 MCH 27.7 pg (28.0-33.3) L 01/27/17 03:39 MCHC 30.1 g/dL (31.6-35.5) L 01/27/17 03:39 RDW 16.1 % (11.5-14.5) H 01/27/17 03:39 D-Dimer 4446 ng/mLFEU (0-500) H 01/22/17 17:14 Sodium 133 mEq/L (136-145) L 01/27/17 03:39 Potassium 5.5 mEq/L (3.5-4.5) H 01/27/17 03:39 Chloride 94 mEq/L (98-109) L 01/27/17 03:39 BUN 87 mg/dL (7-20) H D 01/27/17 03:39 Creatinine 9.25 mg/dL (0.57-1.11) H 01/27/17 03:39 Est GFR ( Amer) 6 (> 60) L 01/27/17 03:39 Est GFR (Non-Af Amer) 5 (> 60) L 01/27/17 03:39 Glucose 110 mg/dL (70-99) H 01/27/17 03:39 POC Glucose 124 (58-89) H 01/27/17 07:12 Hemoglobin A1c 9.9 % (-5.6) H 01/22/17 17:14 Calculated Osmolality 303 (280-300) H 01/27/17 03:39 Calcium 8.4 mg/dL (8.6-10.8) L 01/27/17 03:39 Phosphorus 9.7 mg/dL (2.3-4.7) H 01/26/17 06:26 Iron 37 mcg/dL (50-170) L 01/26/17 06:26 Transferrin 122 mg/dL (180-382) L 01/26/17 06:26 Ferritin 2220 ng/ml (5-204) H 01/26/17 06:26 Troponin I 0.10 ng/mL (0-0.03) H* 01/22/17 17:14 Albumin 2.3 g/dL (3.5-5.0) L 01/27/17 03:39 Globulin 5.0 g/dL (2.4-3.5) H 01/27/17 03:39 Albumin/Globulin Ratio 0.5 (1.1-2.2) L 01/27/17 03:39 Pleural Appearance Bloody (Clear) A 01/23/17 11:36 Pleural RBC 0.022 M/mcL (0.000-0.002) H 01/23/17 11:36 - Clinical Findings Intake & Output: Intake & Output 01/26/17 01/26/17 01/27/17 15:59 23:59 07:59 Intake Total 720 / 720 Output Total 0 / 0 Balance 710 / 710 0 / 0 Weight 99.5 kg Consult Discharge Plan - Plan Referrals: NONE,PCP [Primary Care Provider] -
[2017-01-27] MEDS: Isosorbide MONOnitrate (24 HR) 60 MG TAB.ER.24H PO SCH (08:17)
[2017-01-27] MEDS: Aspirin 81 MG TAB.CHEW PO SCH (08:17)
--- NOTE | 2017-01-27 08:31 | Nephrology Progress Note ---
Date of Encounter: 01/27/17 Time of Encounter: 08:30 - Assessment and Plan (1) ESRD (end stage renal disease) Current Visit: No Status: Chronic The patient will undergo dialysis today. She will be transfused 2 units of packed red blood cells on dialysis. Potassium is 5.5. She will be dialyzed on a 2K bath. (2) Anemia in chronic kidney disease (CKD) Current Visit: Yes Status: Acute Qualifiers: Chronic kidney disease stage: on chronic dialysis Qualified Code(s): N18.6 - End stage renal disease; D63.1 - Anemia in chronic kidney disease; Z99.2 - Dependence on renal dialysis (3) End stage renal disease on dialysis due to type 1 diabetes mellitus Current Visit: Yes Status: Acute (4) Pleural effusion, left Current Visit: No Status: Acute Subjective Principal diagnosis: Pleural effusion Interval history: The patient's chest tube has been removed. She reports her breathing is improved. Hemoglobin has dropped further down to 6.6. She is scheduled for dialysis today. She will be transfused on dialysis. Blood pressure is stable. Objective - Vital Signs Vital signs: Vital Signs Temp Pulse Resp BP Pulse Ox 01/27/17 07:45 97.8 F 82 16 149/92 95 01/27/17 06:25 143/82 01/27/17 03:40 83 17 97/56 96 01/27/17 00:48 82 15 116/66 97 01/26/17 21:00 98.0 F 79 16 119/59 96 01/26/17 15:53 97.6 F 82 16 125/79 97 01/26/17 11:58 97.7 F 83 16 109/63 98 01/26/17 09:46 97/62 Intake and Output 01/26/17 01/27/17 01/27/17 23:59 07:59 15:59 Output Total 0 / 0 Balance 0 / 0 Output: Chest Tube Drainage 0 / 0 Left Lateral Chest 0 / 0 Other: Weight 99.5 kg Blood Glucose* 146 124 - General Appearance Exam: Patient is alert and oriented. She is in no acute distress. Lung sounds otherwise clear. Heart regular rhythm with 2/6 ejection murmur. Abdomen is benign. Patient is status post right below-knee amputation. There is no lower extremity swelling. There is a tunnel dialysis catheter in the right chest. - Lab 01/27/17 03:39 01/27/17 03:39 Most recent lab results Calcium 8.4 mg/dL (8.6-10.8) L 01/27/17 03:39 Phosphorus 9.7 mg/dL (2.3-4.7) H 01/26/17 06:26 Magnesium 2.1 mg/dL (1.6-2.6) 01/26/17 06:26 Consult Discharge Plan - Plan Referrals: NONE,PCP [Primary Care Provider] -
[2017-01-27] MEDS ORDERED: 0.9 % Sodium Chloride 250 ML IVC PRN (08:32)
[2017-01-27] MEDS ORDERED: 0.9 % Sodium Chloride 2,000 ML ONE (16:37)
[2017-01-27] MEDS ORDERED: Iron Dextran Complex 100 MG in 0.9 % Sodium Chloride 500 ML IVPB ONE (18:09)
--- NOTE | 2017-01-27 18:16 | Internal Med Progress Note ---
Date of Encounter: 01/27/17 Time of Encounter: 18:14 - Assessment and plan (1) Anemia Current Visit: No Status: Chronic Qualifiers: Anemia type: unspecified type Qualified Code(s): D64.9 - Anemia, unspecified (2) Hyperkalemia Current Visit: No Status: Acute (3) Pleural effusion Current Visit: Yes Status: Acute (4) ESRD (end stage renal disease) on dialysis Current Visit: Yes Status: Acute (5) Pleuritic chest pain Current Visit: Yes Status: Acute (6) Type 2 diabetes mellitus Current Visit: Yes Status: Acute Qualifiers: Diabetes mellitus complication status: with kidney complications Diabetes mellitus complication detail: with chronic kidney disease Diabetes mellitus long-term insulin use: with long-term use Chronic kidney disease stage: on chronic dialysis Qualified Code(s): E11.22 - Type 2 diabetes mellitus with diabetic chronic kidney disease; N18.6 - End stage renal disease; 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 Benavidez is a 36 year old female with hypertension, type 2 diabetes, coronary artery disease status post stent placement, history of DVTs, peripheral vascular disease status post right BKA and left forefoot amputation, end-stage renal disease on hemodialysis Wednesday presented to ER with left- sided pleuritic chest pain and chest x-ray left-sided effusion noted. Disaster Recovery Specialist consulted to do a chest tube and cytology is pending. Patient is still complaining of left-sided pleuritic chest pain. Chest tube is still draining. Chest x-ray did not show any pneumothorax. Post chest tube was removed patient planned to be discharged. 01/27 the patient had dialysis today Her chest tube has been removed. Hemoglobin drops to 6.6 plan to transfuse 1 unitand give iron supplementation toda. Consult GI. Stool heme occult stat. - Constitutional Vitals: Temp Pulse Resp BP Pulse Ox 98.8 F 102 16 191/100 98 01/27/17 16:44 01/27/17 16:44 01/27/17 16:44 01/27/17 16:44 01/27/17 16:44 General appearance: Present: A&O X 3, no acute distress, obese - Head Head exam: Present: atraumatic, normocephalic - Eye Eye exam: Present: PERRL, conjuntiva pink, sclera anicteric Pupils: Present: PERRL - Neck Neck exam general surgery: Present: supple, trachea midline. Absent: lymphadenopathy - Respiratory Respiratory exam: Present: CTAB. Absent: accessory muscle use, rales, rhonchi, wheezes - Cardiovascular Cardiovascular exam: Present: RRR, +S1, +S2. Absent: diastolic murmur, gallop, rubs, systolic murmur - GI/Abdominal GI/Abdominal exam: Present: normal bowel sounds, soft, no peritoneal signs. Absent: distended, tenderness - Extremities Exam Extremities exam: Present: warm, radial pulses palpable and symetrical. Absent : calf tenderness, cyanotic, pedal edema - Neurological Exam Neurological exam: Present: CN II-XII intact, oriented X3, no focal deficits. Absent: pronater drift, facial droop, speech deficit - Skin Skin exam: Present: dry, intact Internal Medicine: Result - Labs CBC & Chem 7: 01/27/17 03:39 01/27/17 03:39 Labs: Short CBC 01/27/17 Range/Units 03:39 WBC 8.1 (4.3-11.1) K/mcL Hgb 6.6 L (11.5-15.4) g/dL Hct 21.9 L (35.3-44.9) % Plt Count 221 (140-400) K/mcL Neutrophils # 6.4 (1.6-8.9) K/mcL BMP 01/27/17 03:39 Sodium 133 L Potassium 5.5 H Chloride 94 L Carbon Dioxide 20 BUN 87 H D Creatinine 9.25 H Glucose 110 H Calcium 8.4 L Liver Function 01/27/17 Range/Units 03:39 Total Bilirubin 0.6 (0.2-1.2) mg/dL AST 11 (5-34) Units/L ALT 10 (0-55) Units/L Alkaline Phosphatase 95 (38-126) Units/L Albumin 2.3 L (3.5-5.0) g/dL - ABG Interpretation ABG results: PT/INR, D-dimer PT 12.1 Seconds (9.4-12.1) 01/23/17 10:22 D-Dimer 4446 ng/mLFEU (0-500) H 01/22/17 17:14 Consult Discharge Plan - Plan Referrals: NONE,PCP [Primary Care Provider] -
[2017-01-27] MEDS ORDERED: Ferumoxytol 510 MG in 0.9 % Sodium Chloride 100 ML IVPB ONE (18:25)
[2017-01-27] MEDS: Insulin DETEMIR 100 UNIT/ML X5UNITS SQ SCH (20:24)
[2017-01-27] MEDS: Venlafaxine XR (24 HR) 37.5 MG CAP.ER.24H PO SCH (20:24)
[2017-01-28] MEDS: hydrALAZINE 25 MG TABLET PO SCH ×4 (03:00→23:42)
[2017-01-28] MEDS: *HR* Morphine 2 MG/ML SYRINGE IVP PRN ×3 (04:45→14:08)
[2017-01-28] MEDS: *HR* Heparin 5,000 UNIT/ML VIAL SQ SCH ×2 (05:40→17:31)
[2017-01-28] MEDS: *HR* Promethazine 25 MG/ML VIAL IVP PRN ×4 (05:40→23:36)
--- NOTE | 2017-01-28 08:27 | Nephrology Progress Note ---
Date of Encounter: 01/28/17 Time of Encounter: 08:25 - Assessment and Plan (1) ESRD (end stage renal disease) Current Visit: No Status: Chronic Patient is stable from a renal perspective. We will recheck a CBC today fundus not already been done. She will continue to be supported with dialysis every Wednesday. Blood pressure is stable. (2) Anemia in chronic kidney disease (CKD) Current Visit: Yes Status: Acute Qualifiers: Chronic kidney disease stage: on chronic dialysis Qualified Code(s): N18.6 - End stage renal disease; D63.1 - Anemia in chronic kidney disease; Z99.2 - Dependence on renal dialysis (3) End stage renal disease on dialysis due to type 1 diabetes mellitus Current Visit: Yes Status: Acute (4) Pleural effusion, left Current Visit: No Status: Acute Subjective Principal diagnosis: Pleural effusion Interval history: Patient denies any new complaints. She received blood transfusion yesterday on dialysis. CBC is pending for today. Patient is afebrile. Blood pressure is 129/70. Objective - Vital Signs Vital signs: Vital Signs Temp Pulse Resp BP Pulse Ox 01/28/17 07:00 98.4 F 75 15 129/70 94 01/28/17 04:00 97.9 F 80 20 143/76 98 01/27/17 22:16 154/82 01/27/17 19:12 99.4 F 94 16 149/76 95 01/27/17 18:46 97.7 F 70 16 150/72 96 01/27/17 16:44 98.8 F 102 16 191/100 98 01/27/17 16:06 97.4 F L 18 164/80 01/27/17 15:55 155/77 01/27/17 15:40 144/74 01/27/17 15:25 152/76 01/27/17 15:10 155/73 01/27/17 14:55 153/71 01/27/17 14:40 133/59 01/27/17 14:35 98.0 F 87 18 146/67 01/27/17 14:25 134/76 01/27/17 14:10 154/83 01/27/17 13:55 97.4 F L 82 18 138/74 01/27/17 13:40 97.2 F L 80 18 147/68 01/27/17 13:38 97.2 F L 82 18 126/68 01/27/17 13:25 153/79 01/27/17 13:10 145/75 01/27/17 12:55 148/75 01/27/17 12:51 97.2 F L 82 18 146/79 01/27/17 12:50 97.2 F L 82 20 146/79 01/27/17 12:40 149/73 01/27/17 12:36 97.5 F L 18 147/67 01/27/17 12:25 97.5 F L 18 144/70 Intake and Output 01/27/17 01/28/17 01/28/17 23:59 07:59 15:59 Intake Total 200 / 200 1000 / 1000 Output Total 4300 / 4300 Balance -4100 / -4100 1000 / 1000 Intake: Oral 1000 / 1000 Free Water 200 / 200 Output: Urine 0 / 0 Total Dialysis (HD) 4300 / 4300 Output Chest Tube Drainage 0 / 0 Left Lateral Chest 0 / 0 Other: Stool Size Moderate Stool Consistency loose liquid Stool Characteristics Normal for Patient Stool Color Brown # Voids 2 # Urine Diapers 1 # Bowel Movements 1 Weight 99.2 kg Blood Glucose* 290 222 Hemodialysis Net Fluid 3000 Removed (mL) Patient Weight 01/28/17 23:59 Weight 99.2 kg - General Appearance Exam: Patient is alert and oriented. She is in no acute distress. Lung sounds otherwise clear. Heart regular rate and rhythm with a 2/6 start ejection murmur. Abdomen is benign. There is no peripheral edema. Patient status post left BKA. There is a tunnel dialysis catheter in the right chest. 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 - Lab 01/27/17 03:39 01/27/17 03:39 Most recent lab results Calcium 8.4 mg/dL (8.6-10.8) L 01/27/17 03:39 Phosphorus 9.7 mg/dL (2.3-4.7) H 01/26/17 06:26 Magnesium 2.1 mg/dL (1.6-2.6) 01/26/17 06:26 Consult Discharge Plan - Plan Referrals: NONE,PCP [Primary Care Provider] -
[2017-01-28 08:54] LABS: Basophils % 0.5 %; Eosinophils # 0.2 K/mcL (0.0-0.6); Eosinophils % 3.2 %; Hematocrit 29.6 % (35.3-44.9); Immature Granulocytes % 0.6 % (0-4); Lymphocytes # 0.6 K/mcL (0.6-4.6); Mean Corpuscular HGB Conc 30.4 g/dL (31.6-35.5); Mean Corpuscular Hemoglobin 27.7 pg (28.0-33.3); Mean Corpuscular Volume 91.1 fL (83.0-100.0); Mean Platelet Volume 10.6 fL (9.4-12.4); Monocytes # 0.7 K/mcL (0.0-1.3); Monocytes % 11.3 %; Neutrophils # 4.6 K/mcL (1.6-8.9); Nucleated Red Blood Cells 0.3 /100 WBC (0); Platelet Count 225 K/mcL (140-400); Red Blood Count 3.25 M/mcL (3.82-4.97); Segmented Neutrophils % 74.4 %
[2017-01-28] MEDS: Isosorbide MONOnitrate (24 HR) 60 MG TAB.ER.24H PO SCH (08:55)
[2017-01-28] MEDS: Insulin LISPRO 300 UNITS/3 ML VIAL SQ SCH ×7 (08:55→21:17)
[2017-01-28] MEDS: clonazePAM 1 MG TABLET PO PRN (08:56)
[2017-01-28] MEDS: Aspirin 81 MG TAB.CHEW PO SCH (08:56)
--- NOTE | 2017-01-28 09:50 | Gastroenterology Consult Note ---
<Corazon Arias - Last Filed: 01/28/17 11:20> Date of Encounter: 01/28/17 Time of Encounter: 10:45 - Assessment and plan (1) Positive occult stool blood test Current Visit: Yes Status: Acute Assessment and plan: Plan for EGD/Colon, possibly tomorrow. Will discuss with Dr. Bonilla. (2) Anemia in chronic kidney disease (CKD) Current Visit: Yes Status: Chronic Assessment and plan: Acute on chronic, r/o GIB, no previous Cscope evaluation Qualifiers: Chronic kidney disease stage: on chronic dialysis Qualified Code(s): N18.6 - End stage renal disease; D63.1 - Anemia in chronic kidney disease; Z99.2 - Dependence on renal dialysis (3) ESRD (end stage renal disease) on dialysis Current Visit: No Status: Chronic (4) Gastroparesis Current Visit: No Status: Chronic Assessment and plan: Continue reglan, dietary modification - Time Spent With Patient Total time spent is greater than 50% in coordination of care (as documented) at patient's floor/unit and/or counseling patient: less than 15 minutes GI History of Present Illness - Data of Consult Patient: known to practice within the last 3 years Consult date: 01/28/17 Requesting Physician: Gail Rosario MD - Consult Narrative Reason for consult: anemia, + occult blood History of present illness: Ms. Benavidez is a 36 year old female with PMH significant for HTN, DM type 2, CAD with stent, hx of DVT, PVD s/p R BKA and L forefoot amputation, ESRD on HD M/W/ F who presented to ED 01/22 with dyspnea. Patient had pleural effusion, chest tube was placed by IR. She was admitted. Her hgb has dropped to current low of 6.6 which is 1-2 points off her baseline. She did receive 3 units PRBC. Her last EGD 06/[address] Bonilla showed diffuse monilial esophagitis, per [facility] records, no prior Cscope noted. She did have positive occult blood in stool. Patient states she has constipation for days, then all of a sudden, multiple loose bowel movements, then back to constipation. Has tried probiotics with poor response. Sees BRBPR, complains of a 'paper cut' laceration to perineum with BRB noted. Lower abdominal cramping, N/V continues as does complaint of dysphagia. Admits dyspepsia, acid reflux symptoms. She is no longer using PLAVIX. Colonoscopy: None noted EGD: 06/2016 - [facility] - monilial esophagitis, food residue Past Med Surg Social Fam HX - Past Medical History Medical history: coronary artery disease, DVT, diabetes, dialysis, hypertension , renal disease Psychiatric history: anxiety, depression - Past Surgical History Surgical History: angioplasty/stent, hip replacement, hysterectomy, other (left knee arthroscopy, right BKA, leftt forefoot amputation) - Social History Smoking Status: Former smoker (10 pack year history) Smokeless Tobacco Status: No Alcohol use: none Drug use: none - Family History Mother Adopted: No Family Member Ethnicity: Non- Living Status: Still Living Hx Family Cardiac Disorders: Yes (Father with coronary artery disease) Hx Family Respiratory Disorders: No Hx Family Cancer: Yes (Breast) Hx Family GI Disorders: No Hx Family Endocrine Disorder: Yes (Mother with dm) Hx Family Neuromuscular Disorders: No Hx Family Neurologic Disorders: No Hx Family HEENT Disorders: No Hx Family Autoimmune Disorders: No - Gastrointestinal NSAID use: None Anticoagulation Use: None Number of BM Per Day: 0-5 Gastrointestinal: Present: abdominal pain, constipation, diarrhea, dyspepsia, heartburn, nausea, vomiting - Constitutional Constitutional: as per HPI - EENT Eyes: as per HPI Ears: Present: as per HPI Nose, mouth and throat: Present: dysphagia - Cardiovascular Cardiovascular ROS: Present: as per HPI - Respiratory Respiratory IM: Present: dyspnea - Neurological ROS Neurological GI: Present: as per HPI - Hematologic/Lymphatic Hematologic/Lymphatic pediatric: Present: as per HPI - Musculoskeletal Musculoskeletal ROS GI: Present: as per HPI - Integumentary Integumentary GI: Present: as per HPI - Psychiatric ROS Psychiatric GI: Present: as per HPI - Endocrine Endocrine IM: Present: as per HPI - Constitutional Vitals: Temp Pulse Resp BP Pulse Ox 98.4 F 75 15 129/70 94 01/28/17 07:00 01/28/17 07:00 01/28/17 07:00 01/28/17 07:00 01/28/17 08:23 General appearance: Present: cooperative, A&O X 3, no acute distress, answers questions appropriately - Head Head exam: Present: atraumatic, normocephalic - Eye Eye exam: Present: normal appearance, sclera anicteric - ENT ENT exam: Present: mucous membranes moist - Neck Neck exam general surgery: Present: normal inspection, trachea midline - Respiratory Respiratory exam: Present: decreased breath sounds - Cardiovascular Cardiovascular exam: Present: RRR, +S1, +S2 - GI/Abdominal GI/Abdominal exam: Present: soft, tenderness, no peritoneal signs - Rectal Rectal exam: Present: deferred - Extremities Exam Additional comments: BKA, partial foot - Neurological Exam Neurological exam: Present: no focal deficits - Psychiatric Psychiatric exam: Present: flat affect - Skin Skin exam: Present: dry, intact, normal color, warm Results - Labs CBC & Chem 7: 01/28/17 08:35 01/27/17 03:39 Labs: Last Result Calcium 8.4 mg/dL (8.6-10.8) L 01/27/17 03:39 Iron 37 mcg/dL (50-170) L 01/26/17 06:26 % Saturation 22 % (15-50) 01/26/17 06:26 Transferrin 122 mg/dL (180-382) L 01/26/17 06:26 Ferritin 2220 ng/ml (5-204) H 01/26/17 06:26 Troponin I 0.10 ng/mL (0-0.03) H* 01/22/17 17:14 Stool Occult Blood Positive (Negative) A 01/27/17 20:25 Entire Visit Hgb 9.0 g/dL (11.5-15.4) L D 01/28/17 08:35 Hct 29.6 % (35.3-44.9) L 01/28/17 08:35 PT 12.1 Seconds (9.4-12.1) 01/23/17 10:22 Ferritin 2220 ng/ml (5-204) H 01/26/17 06:26 Total Bilirubin 0.6 mg/dL (0.2-1.2) 01/27/17 03:39 AST 11 Units/L (5-34) 01/27/17 03:39 ALT 10 Units/L (0-55) 01/27/17 03:39 - ABG ABG results: PT/INR, D-dimer PT 12.1 Seconds (9.4-12.1) 01/23/17 10:22 D-Dimer 4446 ng/mLFEU (0-500) H 01/22/17 17:14 - Impressions Impressions Chest X-Ray 01/27/17 07:45 IMPRESSION: Left basilar pleural effusion and adjacent atelectasis or airspace disease is stable. There is no pneumothorax, following removal of chest tube. Cardiomegaly. D/ / Link Valdes MD / Link Valdes MD Interpreting Provider: Link Valdes MD Consult Discharge Plan - Plan Referrals: Colt Espinoza MD [Non-Partnered Physician] - <Mark Bonilla - Last Filed: 01/28/17 18:56> Date of Encounter: 01/28/17 Time of Encounter: 17:55 - Time Spent With Patient Total time spent is greater than 50% in coordination of care (as documented) at patient's floor/unit and/or counseling patient: GI History of Present Illness - Data of Consult Requesting Physician: Gail Rosario MD - Consult Narrative History of present illness: Ms. Benavidez is a 36 year old female - Constitutional Vitals: Temp Pulse Resp BP Pulse Ox 98.6 F 71 19 160/85 95 01/28/17 15:00 01/28/17 15:00 01/28/17 15:00 01/28/17 15:00 01/28/17 15:00 Results - Labs CBC & Chem 7: 01/28/17 08:35 01/27/17 03:39 Labs: Last Result Calcium 8.4 mg/dL (8.6-10.8) L 01/27/17 03:39 Iron 37 mcg/dL (50-170) L 01/26/17 06:26 % Saturation 22 % (15-50) 01/26/17 06:26 Transferrin 122 mg/dL (180-382) L 01/26/17 06:26 Ferritin 2220 ng/ml (5-204) H 01/26/17 06:26 Troponin I 0.10 ng/mL (0-0.03) H* 01/22/17 17:14 Stool Occult Blood Positive (Negative) A 01/27/17 20:25 Entire Visit Hgb 9.0 g/dL (11.5-15.4) L D 01/28/17 08:35 Hct 29.6 % (35.3-44.9) L 01/28/17 08:35 PT 12.1 Seconds (9.4-12.1) 01/23/17 10:22 Ferritin 2220 ng/ml (5-204) H 01/26/17 06:26 Total Bilirubin 0.6 mg/dL (0.2-1.2) 01/27/17 03:39 AST 11 Units/L (5-34) 01/27/17 03:39 ALT 10 Units/L (0-55) 01/27/17 03:39 - ABG ABG results: PT/INR, D-dimer PT 12.1 Seconds (9.4-12.1) 01/23/17 10:22 D-Dimer 4446 ng/mLFEU (0-500) H 01/22/17 17:14 - Impressions Impressions Chest X-Ray 01/27/17 07:45 IMPRESSION: Left basilar pleural effusion and adjacent atelectasis or airspace disease is stable. There is no pneumothorax, following removal of chest tube. Cardiomegaly. D/ / Link Valdes MD / Link Valdes MD Interpreting Provider: Link Valdes MD - Attending Attestation I examined this patient and my medical decision-making was reviewed with the Resident Physician. I agree with the documented findings, disposition and treatment plan as described except to the extent set forth below. Long-standing anemia now with positive stool occult blood. Never had a colonoscopy done. Patient for EGD/colon in the morning
--- NOTE | 2017-01-28 17:04 | Pulmonology Progress Note ---
Date of Encounter: 01/28/17 Time of Encounter: 09:00 Assessment and Plan (1) Pleural effusion Current Visit: Yes Status: Chronic Patient is to have drainage and output around 200 mL. Continue with chest tube drainage at this time and fluid to be sent for microbiology. 01/26 Fluid drainage is less, to check Portable CXR and possible removal of the chest tube 01/27 since there is minimal drainage of the fluid, chest tube removed without any immediate complication. I suspect this is all secondary to her underlying renal disease and most likely it will reaccumulate. Considering her pleurX catheter is reasonable which would be assessed as outpatient. 01/28 I suspect this will be a chronic problem and explained to patient I suspect this will reaccumelate and same recommendations as above. Will follow up PRN. please call for any questions. (2) ESRD (end stage renal disease) on dialysis Current Visit: Yes Status: Acute Patient will have dialysis which I feel it will help this effusion. Subjective Principal diagnosis: Pleural effusion Interval history: Patient denies any significant changes and continued to drain the chest tube. 01/26 Patient feels slightly better 82/ no significant changes, patient has minimal drainage of the fluid. 01/28 no major complaints today and she felt last night that fluid is reaccumelated, but she feels better now. Objective PUL Vital signs: Last Vital Signs Temp 98.6 F 01/28/17 15:00 Pulse 71 01/28/17 15:00 Resp 19 01/28/17 15:00 BP 160/85 01/28/17 15:00 Pulse Ox 95 01/28/17 15:00 General appearance: no acute distress Eyes: nonicteric ENT: oropharynx moist Neck: supple Effort: normal Auscultation: left: diminished breath sounds, right: clear Percussion: left: dull Cardiovascular: regular rate and rhythm Gastrointestinal: normoactive bowel sounds Integumentary: normal Extremities: no cyanosis normal mental status, non-focal exam mood appropriate Results - Laboratory Findings CBC and BMP: 01/28/17 08:35 01/27/17 03:39 PT/INR, D-dimer PT 12.1 Seconds (9.4-12.1) 01/23/17 10:22 D-Dimer 4446 ng/mLFEU (0-500) H 01/22/17 17:14 Abnormal lab findings: Abnormal lab results RBC 3.25 M/mcL (3.82-4.97) L 01/28/17 08:35 Hgb 9.0 g/dL (11.5-15.4) L D 01/28/17 08:35 Hct 29.6 % (35.3-44.9) L 01/28/17 08:35 MCH 27.7 pg (28.0-33.3) L 01/28/17 08:35 MCHC 30.4 g/dL (31.6-35.5) L 01/28/17 08:35 RDW 17.0 % (11.5-14.5) H 01/28/17 08:35 Nucleated RBCs/100 WBC 0.3 /100 WBC (0) H 01/28/17 08:35 D-Dimer 4446 ng/mLFEU (0-500) H 01/22/17 17:14 Sodium 133 mEq/L (136-145) L 01/27/17 03:39 Potassium 5.5 mEq/L (3.5-4.5) H 01/27/17 03:39 Chloride 94 mEq/L (98-109) L 01/27/17 03:39 BUN 87 mg/dL (7-20) H D 01/27/17 03:39 Creatinine 9.25 mg/dL (0.57-1.11) H 01/27/17 03:39 Est GFR ( Amer) 6 (> 60) L 01/27/17 03:39 Est GFR (Non-Af Amer) 5 (> 60) L 01/27/17 03:39 Glucose 110 mg/dL (70-99) H 01/27/17 03:39 POC Glucose 136 (58-89) H 01/27/17 16:42 Hemoglobin A1c 9.9 % (-5.6) H 01/22/17 17:14 Calculated Osmolality 303 (280-300) H 01/27/17 03:39 Calcium 8.4 mg/dL (8.6-10.8) L 01/27/17 03:39 Phosphorus 9.7 mg/dL (2.3-4.7) H 01/26/17 06:26 Iron 37 mcg/dL (50-170) L 01/26/17 06:26 Transferrin 122 mg/dL (180-382) L 01/26/17 06:26 Ferritin 2220 ng/ml (5-204) H 01/26/17 06:26 Troponin I 0.10 ng/mL (0-0.03) H* 01/22/17 17:14 Albumin 2.3 g/dL (3.5-5.0) L 01/27/17 03:39 Globulin 5.0 g/dL (2.4-3.5) H 01/27/17 03:39 Albumin/Globulin Ratio 0.5 (1.1-2.2) L 01/27/17 03:39 Pleural Appearance Bloody (Clear) A 01/23/17 11:36 Pleural RBC 0.022 M/mcL (0.000-0.002) H 01/23/17 11:36 Stool Occult Blood Positive (Negative) A 01/27/17 20:25 - Clinical Findings Intake & Output: Intake & Output 01/28/17 01/28/17 01/28/17 07:59 15:59 23:59 Intake Total 1000 / 1000 940 / 940 Balance 1000 / 1000 940 / 940 Weight 99.2 kg 99.2 kg Consult Discharge Plan - Plan Referrals: Colt Espinoza MD [Non-Partnered Physician] -
[2017-01-28] MEDS: *HR* HYDROcodone/Acet 10/325 mg TABLET PO PRN ×2 (17:30→23:42)
--- NOTE | 2017-01-28 18:08 | Internal Med Progress Note ---
Date of Encounter: 01/29/17 Time of Encounter: 18:06 - Assessment and plan (1) Anemia Current Visit: No Status: Chronic Qualifiers: Anemia type: unspecified type Qualified Code(s): D64.9 - Anemia, unspecified (2) Hyperkalemia Current Visit: No Status: Acute (3) Pleural effusion Current Visit: Yes Status: Chronic (4) ESRD (end stage renal disease) on dialysis Current Visit: Yes Status: Acute (5) Pleuritic chest pain Current Visit: Yes Status: Acute (6) Type 2 diabetes mellitus Current Visit: Yes Status: Acute Qualifiers: Diabetes mellitus complication status: with kidney complications Diabetes mellitus complication detail: with chronic kidney disease Diabetes mellitus 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 Benavidez is a 36 year old female with hypertension, type 2 diabetes, coronary artery disease status post stent placement, history of DVTs, peripheral vascular disease status post right BKA and left forefoot amputation, end-stage renal disease on hemodialysis Wednesday presented to ER with left- sided pleuritic chest pain and chest x-ray left-sided effusion noted. She had chest tube which has been taken out and since then she has been doing well. 01/27 the patient had dialysis today Her chest tube has been removed. Hemoglobin drops to 6.6 plan to transfuse 1 unitand give iron supplementation toda. Consult GI. Stool heme occult stat. 01/28 posttransfusion hemoglobin above 9 which is satisfactory. She knows gastroenterology and they were planning to do colonoscopy on her as outpatient. This oncologist informed and they plan to proceed with the scope. - Constitutional Vitals: Temp Pulse Resp BP Pulse Ox 98.6 F 71 19 160/85 95 01/28/17 15:00 01/28/17 15:00 01/28/17 15:00 01/28/17 15:00 01/28/17 15:00 General appearance: Present: A&O X 3, no acute distress, obese - Head Head exam: Present: atraumatic, normocephalic - Eye Eye exam: Present: PERRL, conjuntiva pink, sclera anicteric Pupils: Present: PERRL - Neck Neck exam general surgery: Present: supple, trachea midline. Absent: lymphadenopathy - Respiratory Respiratory exam: Present: CTAB. Absent: accessory muscle use, rales, rhonchi, wheezes - Cardiovascular Cardiovascular exam: Present: RRR, +S1, +S2. Absent: diastolic murmur, gallop, rubs, systolic murmur - GI/Abdominal GI/Abdominal exam: Present: normal bowel sounds, soft, no peritoneal signs. Absent: distended, tenderness - Extremities Exam Extremities exam: Present: warm, radial pulses palpable and symetrical. Absent : calf tenderness, cyanotic, pedal edema - Neurological Exam Neurological exam: Present: CN II-XII intact, oriented X3, no focal deficits. Absent: pronater drift, facial droop, speech deficit - Skin Skin exam: Present: dry, intact Internal Medicine: Result - Labs CBC & Chem 7: 01/29/17 06:23 01/29/17 06:23 Labs: Short CBC 01/28/17 Range/Units 08:35 WBC 6.2 (4.3-11.1) K/mcL Hgb 9.0 L D (11.5-15.4) g/dL Hct 29.6 L (35.3-44.9) % Plt Count 225 (140-400) K/mcL Neutrophils # 4.6 (1.6-8.9) K/mcL - ABG Interpretation ABG results: PT/INR, D-dimer PT 12.1 Seconds (9.4-12.1) 01/23/17 10:22 D-Dimer 4446 ng/mLFEU (0-500) H 01/22/17 17:14 - Impressions Impressions Chest X-Ray 01/27/17 07:45 IMPRESSION: Left basilar pleural effusion and adjacent atelectasis or airspace disease is stable. There is no pneumothorax, following removal of chest tube. Cardiomegaly. D/ / Link Vlades MD / Link Valdes MD Interpreting Provider: Link Valdes MD Consult Discharge Plan - Plan Referrals: Colt Espinoza MD [Non-Partnered Physician] -
[2017-01-28] MEDS ORDERED: Polyethylene Glycol 3350 255 GM POWDER PO ONE (19:00)
[2017-01-28] MEDS: Venlafaxine XR (24 HR) 37.5 MG CAP.ER.24H PO SCH (20:12)
[2017-01-28] MEDS: Insulin DETEMIR 100 UNIT/ML X5UNITS SQ SCH (21:19)
[2017-01-29] MEDS: *HR* Heparin 5,000 UNIT/ML VIAL SQ SCH ×2 (05:33→20:49)
[2017-01-29] MEDS: *HR* Promethazine 25 MG/ML VIAL IVP PRN ×3 (05:36→20:52)
[2017-01-29 06:41] LABS: Basophils % 0.5 %; Eosinophils # 0.3 K/mcL (0.0-0.6); Eosinophils % 3.9 %; Hematocrit 25.4 % (35.3-44.9); Hemoglobin 7.9 g/dL (11.5-15.4); Immature Granulocytes % 0.6 % (0-4); Lymphocytes # 0.6 K/mcL (0.6-4.6); Lymphocytes % 8.8 %; Mean Corpuscular HGB Conc 31.1 g/dL (31.6-35.5); Mean Corpuscular Hemoglobin 28.4 pg (28.0-33.3); Mean Corpuscular Volume 91.4 fL (83.0-100.0); Mean Platelet Volume 10.4 fL (9.4-12.4); Monocytes # 0.7 K/mcL (0.0-1.3); Monocytes % 10.1 %; Platelet Count 222 K/mcL (140-400); Red Blood Count 2.78 M/mcL (3.82-4.97); Red Cell Distribution Width 16.6 % (11.5-14.5); Segmented Neutrophils % 76.1 %
[2017-01-29 06:53] LABS: Albumin 2.4 g/dL (3.5-5.0); Albumin/Globulin Ratio 0.5 (1.1-2.2); Bilirubin,Total 0.5 mg/dL (0.2-1.2); Calcium 9.1 mg/dL (8.6-10.8); Globulin 5.2 g/dL (2.4-3.5); Potassium 5.3 mEq/L (3.5-4.5); Total Protein 7.6 g/dL (6.0-8.3)
[2017-01-29] MEDS: Insulin LISPRO 300 UNITS/3 ML VIAL SQ SCH ×7 (07:59→23:29)
[2017-01-29] MEDS: hydrALAZINE 25 MG TABLET PO SCH ×3 (08:10→20:49)
[2017-01-29] MEDS ORDERED: 0.9 % Sodium Chloride 250 ML IVC PRN (08:38)
--- NOTE | 2017-01-29 08:38 | Nephrology Progress Note ---
Date of Encounter: 01/29/17 Time of Encounter: 08:37 - Assessment and Plan (1) ESRD (end stage renal disease) Current Visit: No Status: Chronic Patient will undergo hemodialysis today. I did request that the nurse give the patient her usual oral antihypertensive medications today even though she is nothing by mouth. She is scheduled for a colonoscopy later today I believe. (2) Anemia in chronic kidney disease (CKD) Current Visit: Yes Status: Chronic Qualifiers: Chronic kidney disease stage: on chronic dialysis Qualified Code(s): N18.6 - End stage renal disease; D63.1 - Anemia in chronic kidney disease; Z99.2 - Dependence on renal dialysis (3) End stage renal disease on dialysis due to type 1 diabetes mellitus Current Visit: Yes Status: Acute (4) Pleural effusion, left Current Visit: No Status: Acute Subjective Principal diagnosis: Pleural effusion Interval history: Patient reports she continues to feel tired and has some shortness of breath. She did undergo a colonoscopy later today I believe. Blood pressure is currently 195 systolic. She did not receive her antihypertensive medications this morning. She will have her usual dialysis today as well. Hemoglobin is back down to 7.9. Yesterday was 9.0. Objective - Vital Signs Vital signs: Vital Signs Temp Pulse Resp BP Pulse Ox 01/29/17 07:14 98.4 F 82 20 142/88 97 01/29/17 03:41 97.5 F L 72 19 134/75 97 01/28/17 23:04 68 18 137/63 98 01/28/17 20:01 97.5 F L 71 15 124/71 98 01/28/17 15:00 98.6 F 71 19 160/85 95 Intake and Output 01/28/17 01/29/17 01/29/17 23:59 07:59 15:59 Intake Total 600 / 600 Balance 600 / 600 Intake: Oral 600 / 600 Other: Meal Dinner Stool Size Large Stool Consistency liquid Stool Color Brown Weight 100.4 kg Blood Glucose* 142 87 Patient Weight 01/29/17 23:59 Weight 100.4 kg - General Appearance Exam: Patient is alert and oriented. She is in no acute distress. Lung sounds otherwise clear. Heart regular rate and rhythm. Abdomen is benign. There is no peripheral edema. Is a tunnel dialysis catheter in the right chest. 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 - Lab 01/29/17 06:23 01/29/17 06:23 Most recent lab results Calcium 9.1 mg/dL (8.6-10.8) 01/29/17 06:23 Phosphorus 9.7 mg/dL (2.3-4.7) H 01/26/17 06:26 Magnesium 2.1 mg/dL (1.6-2.6) 01/26/17 06:26 Consult Discharge Plan - Plan Referrals: Colt Espinoza MD [Non-Partnered Physician] -
[2017-01-29] MEDS: Isosorbide MONOnitrate (24 HR) 60 MG TAB.ER.24H PO SCH (09:07)
[2017-01-29] MEDS: *HR* HYDROcodone/Acet 10/325 mg TABLET PO PRN (09:07)
--- NOTE | 2017-01-29 10:14 | Anesthesia Evaluation PreOp ---
Date of Encounter: 01/29/17 Time of Encounter: 10:11 - Past History Planned Operation: EGD/Colonoscopy Cardiac History: HTN, Hyperlipidemia Pulmonary History: Smoker, Pack/yr (1ppd x 20years) TEAM PSYCHOLOGIST History: Other (Anxiety/Depression) Other Medical History: Renal (ESRD), Diabetes Type I, GERD Anesthesia History: No Prior Anesthetic Complications, Past Anesthesia (VALENTIN, tubal, adenoidctomy, R-BKA) : No (VALENTIN) Alcohol Use: none Drug use: none Medications and Allergies Aspirin 81 mg PO DAILY #30 tab.chew 12/22/15 [Rx] HYDROcodone/Acet 10/325 mg [[place] 10-325 mg] 1 tab PO QID PRN 01/21/16 [History] Venlafaxine XR (24 HR) [Effexor XR] 37.5 mg PO HS 04/20/16 [History] clonazePAM [Klonopin] 2 mg PO BID PRN 04/20/16 [History] Insulin ASPART [NovoLOG] 5 - 10 unit SQ TIDWM 04/21/16 [History] Clopidogrel [Plavix] 75 mg PO DAILY tablet 04/23/16 [Rx] Omeprazole [PriLOSEC] 20 mg PO BID capsule. 04/23/16 [Rx] Atorvastatin [Lipitor] 40 mg PO DAILY 08/12/16 [History] Isosorbide MONOnitrate (24 HR) [Imdur] 120 mg PO DAILY #60 tab.er.24h 11/13/16 [ Rx] Lisinopril [Zestril] 20 mg PO BID 60 Days 11/13/16 [Rx] Metoprolol [Lopressor] 75 mg PO BID #90 tablet 11/13/16 [Rx] Carvedilol [Coreg] 25 mg PO QID 01/23/17 [History] CloNIDine Patch [Catapres-TTS] 0.2 mg TD QWEEK 01/23/17 [History] Insulin DETEMIR [Levemir] 60 - 80 unit SQ HS 01/23/17 [History] Allergies Amoxicillin Allergy (Verified 01/22/17 15:39) Hives ondansetron [From Zofran (as hydrochloride)] Adverse Reaction (Verified 15:39) Vomiting - Meds/Allergy Pre-op Review Medications Reviewed: Yes Allergies Reviewed: Yes Beta Blockers on Current Med List: No If Beta Blockers taken, Date/Time (Last Dose taken): 09:07 01/29/2017 Anesthesia Results - Labs 01/29/17 06:23 01/29/17 06:23 Echocardiogram Date of Study: 08/13/2016 Impressions: LVEF 55-60%. Normal LV chamber size and function. Mild concentric left ventricular hypertrophy. Moderate left ventricular diastolic dysfunction. Normal right ventricular structure and function. Moderately dilated left atrium. Mild pulmonary hypertension. Estimated RVSP is 38 mmHg. No significant valvular dysfunction. - Imaging EKG: image reviewed (SINUS RHYTHM ATYPICAL LBBB Poor R wave progression) Anesthesia Exam O2 Sat Weight 100.4 kg Weight 99.2 kg O2 Sat by Pulse Oximetry 97 O2 Sat by Pulse Oximetry 97 O2 Sat by Pulse Oximetry 98 O2 Sat by Pulse Oximetry 98 O2 Sat by Pulse Oximetry 95 Vital Signs Temp Pulse Resp BP Pulse Ox 99.9 F H 97 24 172/104 96 01/22/17 15:39 01/22/17 15:39 01/22/17 15:39 01/22/17 15:39 01/22/17 15:39 Vital Signs/O2 Sat, Most Current Temp Pulse Resp BP Pulse Ox 98.4 F 82 20 142/88 97 01/29/17 07:14 01/29/17 07:14 01/29/17 07:14 01/29/17 07:14 01/29/17 07:14 Height: 5'8'' Weight: 221# NPO (# of Hours): > 8 hrs Pain Scale: 0 Pain Scale Used: Numeric (1 - 10) - HEENT Pupil (Motor): Pupils equal, EOMI Mallampati: III Teeth: Poor dentition Oral Opening: Greater than 3 - TEAM PSYCHOLOGIST LOC: Oriented TEAM PSYCHOLOGIST Motor: Normal RUE, Normal LUE, Normal RLE, Normal LLE, Normal Face TEAM PSYCHOLOGIST Sensory: Normal: RUE, LUE, RLE, LLE, Face - Cardiac Rhythm: Regular Murmur: None JVD: No Carotid Bruit: No - Pulmonary Breath Sounds: bilateral Clear Respiratory Effort: Symmetrical Anesthesia Assess/Plan ASA Score: 3 Modified [place] Scale for Level of Consciousness: Cooperative, oriented, and tranquil Anesthetic Plan: MAC Autologous Blood: Yes Monitoring Plan: Standard Monitors Recovery Plan: Other
--- NOTE | 2017-01-29 10:15 | Anesthesia Evaluation PreOp ---
Date of Encounter: 01/29/17 Time of Encounter: 10:09 - Past History Planned Operation: EGD/Colonoscopy Alcohol Use: none Drug use: none Medications and Allergies Aspirin 81 mg PO DAILY #30 tab.chew 12/22/15 [Rx] HYDROcodone/Acet 10/325 mg [[place] 10-325 mg] 1 tab PO QID PRN 01/21/16 [History] Venlafaxine XR (24 HR) [Effexor XR] 37.5 mg PO HS 04/20/16 [History] clonazePAM [Klonopin] 2 mg PO BID PRN 04/20/16 [History] Insulin ASPART [NovoLOG] 5 - 10 unit SQ TIDWM 04/21/16 [History] Clopidogrel [Plavix] 75 mg PO DAILY tablet 04/23/16 [Rx] Omeprazole [PriLOSEC] 20 mg PO BID capsule. 04/23/16 [Rx] Atorvastatin [Lipitor] 40 mg PO DAILY 08/12/16 [History] Isosorbide MONOnitrate (24 HR) [Imdur] 120 mg PO DAILY #60 tab.er.24h 11/13/16 [ Rx] Lisinopril [Zestril] 20 mg PO BID 60 Days 11/13/16 [Rx] Metoprolol [Lopressor] 75 mg PO BID #90 tablet 11/13/16 [Rx] Carvedilol [Coreg] 25 mg PO QID 01/23/17 [History] CloNIDine Patch [Catapres-TTS] 0.2 mg TD QWEEK 01/23/17 [History] Insulin DETEMIR [Levemir] 60 - 80 unit SQ HS 01/23/17 [History] Allergies Amoxicillin Allergy (Verified 01/22/17 15:39) Hives ondansetron [From Zofran (as hydrochloride)] Adverse Reaction (Verified 15:39) Vomiting Anesthesia Results - Labs 01/29/17 06:23 01/29/17 06:23
[2017-01-29] MEDS: 0.9 % Sodium Chloride 1,000 ML IVC SCH (10:21)
[2017-01-29] MEDS ORDERED: *HR* Heparin 10,000 UNIT/10 ML VIAL IV PRN (11:06)
[2017-01-29] MEDS ORDERED: Oxymetazoline Nasal SPRAY BOTTLE NS ONE (12:43)
[2017-01-29] MEDS: Aspirin 81 MG TAB.CHEW PO SCH (14:10)
[2017-01-29] MEDS: *HR* Morphine 2 MG/ML SYRINGE IVP PRN ×2 (14:43→20:51)
[2017-01-29] MEDS ORDERED: *HR* Promethazine 25 MG/ML VIAL IVP PRN (14:53)
[2017-01-29] MEDS ORDERED: *HR* HYDROmorphone (PF) 1 MG/ML SYRINGE IVP PRN (14:53)
--- NOTE | 2017-01-29 18:04 | Internal Med Progress Note ---
Date of Encounter: 01/29/17 Time of Encounter: 18:03 - Assessment and plan (1) Anemia Current Visit: No Status: Chronic Qualifiers: Anemia type: unspecified type Qualified Code(s): D64.9 - Anemia, unspecified (2) Hyperkalemia Current Visit: No Status: Acute (3) Pleural effusion Current Visit: Yes Status: Chronic (4) ESRD (end stage renal disease) on dialysis Current Visit: Yes Status: Acute (5) Pleuritic chest pain Current Visit: Yes Status: Acute (6) Type 2 diabetes mellitus Current Visit: Yes Status: Acute Qualifiers: Diabetes mellitus complication status: with kidney complications Diabetes mellitus complication detail: with chronic kidney disease Diabetes mellitus nursing home insulin use: with terminal carman use Chronic kidney disease stage: on chronic dialysis Qualified Code(s): E11.22 - Type 2 diabetes mellitus with diabetic chronic kidney disease; N18.6 - End stage renal disease; Z79.4 - prison (current) use of insulin; Z99.2 - Dependence on renal dialysis - Subjective Interval history: Ms. Benavidez is a 36 year old female with hypertension, type 2 diabetes, coronary artery disease status post stent placement, history of DVTs, peripheral vascular disease status post right BKA and left forefoot amputation, end-stage renal disease on hemodialysis Wednesday presented to ER with left- sided pleuritic chest pain and chest x-ray left-sided effusion noted. She had chest tube which has been taken out and since then she has been doing well. 01/27 the patient had dialysis today Her chest tube has been removed. Hemoglobin drops to 6.6 plan to transfuse 1 unitand give iron supplementation toda. Consult GI. Stool heme occult stat. 01/28 posttransfusion hemoglobin above 9 which is satisfactory. She knows gastroenterology and they were planning to do colonoscopy on her as outpatient. This oncologist informed and they plan to proceed with the scope. 8 slight drop in hemoglobin. Endoscopy planned for today. Continue watching hemoglobin. Potassium slightly elevated but today she will get dialysis. She had 2 units transfused. No signs of CHF. - Constitutional Vitals: Temp Pulse Resp BP Pulse Ox 97.5 F L 79 18 141/74 90 01/29/17 14:52 01/29/17 14:52 01/29/17 14:52 01/29/17 14:52 01/29/17 14:52 General appearance: Present: A&O X 3, no acute distress, obese - Head Head exam: Present: atraumatic, normocephalic - Eye Eye exam: Present: PERRL, conjuntiva pink, sclera anicteric Pupils: Present: PERRL - Neck Neck exam general surgery: Present: supple, trachea midline. Absent: lymphadenopathy - Respiratory Respiratory exam: Present: CTAB. Absent: accessory muscle use, rales, rhonchi, wheezes - Cardiovascular Cardiovascular exam: Present: RRR, +S1, +S2. Absent: diastolic murmur, gallop, rubs, systolic murmur - GI/Abdominal GI/Abdominal exam: Present: normal bowel sounds, soft, no peritoneal signs. Absent: distended, tenderness - Extremities Exam Extremities exam: Present: warm, radial pulses palpable and symetrical. Absent : calf tenderness, cyanotic, pedal edema - Neurological Exam Neurological exam: Present: CN II-XII intact, oriented X3, no focal deficits. Absent: pronater drift, facial droop, speech deficit - Skin Skin exam: Present: dry, intact Internal Medicine: Result - Labs CBC & Chem 7: 01/29/17 06:23 01/29/17 06:23 Labs: Short CBC 01/29/17 Range/Units 06:23 WBC 6.6 (4.3-11.1) K/mcL Hgb 7.9 L (11.5-15.4) g/dL Hct 25.4 L (35.3-44.9) % Plt Count 222 (140-400) K/mcL Neutrophils # 5.0 (1.6-8.9) K/mcL BMP 01/29/17 06:23 Sodium 129 L Potassium 5.3 H Chloride 92 L Carbon Dioxide 22 BUN 70 H Creatinine 7.22 H Glucose 83 Calcium 9.1 Liver Function 01/29/17 Range/Units 06:23 Total Bilirubin 0.5 (0.2-1.2) mg/dL AST 20 (5-34) Units/L ALT 17 (0-55) Units/L Alkaline Phosphatase 124 (38-126) Units/L Albumin 2.4 L (3.5-5.0) g/dL - ABG Interpretation ABG results: PT/INR, D-dimer PT 12.1 Seconds (9.4-12.1) 01/23/17 10:22 D-Dimer 4446 ng/mLFEU (0-500) H 01/22/17 17:14 Consult Discharge Plan - Plan Referrals: Colt Espinoza MD [Non-Partnered Physician] -
[2017-01-29] MEDS: clonazePAM 1 MG TABLET PO PRN (20:51)
[2017-01-29] MEDS: Venlafaxine XR (24 HR) 37.5 MG CAP.ER.24H PO SCH (20:51)
[2017-01-29] MEDS: Insulin DETEMIR 100 UNIT/ML X5UNITS SQ SCH (23:29)
[2017-01-30] MEDS: *HR* Promethazine 25 MG/ML VIAL IVP PRN ×3 (03:22→15:40)
[2017-01-30] MEDS: hydrALAZINE 25 MG TABLET PO SCH ×2 (03:23→08:45)
[2017-01-30] MEDS: *HR* Morphine 2 MG/ML SYRINGE IVP PRN ×3 (03:23→13:12)
[2017-01-30] MEDS: CloNIDine Patch 0.3 MG PATCH (WEEKLY) TP SCH (03:47)
[2017-01-30 04:46] LABS: Basophils % 0.5 %; Eosinophils # 0.2 K/mcL (0.0-0.6); Eosinophils % 3.5 %; Hematocrit 25.5 % (35.3-44.9); Immature Granulocytes % 0.7 % (0-4); Lymphocytes # 0.7 K/mcL (0.6-4.6); Lymphocytes % 11.9 %; Mean Corpuscular HGB Conc 31.4 g/dL (31.6-35.5); Mean Corpuscular Hemoglobin 28.2 pg (28.0-33.3); Mean Corpuscular Volume 89.8 fL (83.0-100.0); Mean Platelet Volume 10.8 fL (9.4-12.4); Monocytes # 0.6 K/mcL (0.0-1.3); Monocytes % 10.2 %; Neutrophils # 4.5 K/mcL (1.6-8.9); Nucleated Red Blood Cells 0.3 /100 WBC (0); Platelet Count 225 K/mcL (140-400); Red Blood Count 2.84 M/mcL (3.82-4.97); Red Cell Distribution Width 16.2 % (11.5-14.5); Segmented Neutrophils % 73.2 %
[2017-01-30] MEDS: *HR* Heparin 5,000 UNIT/ML VIAL SQ SCH (06:16)
[2017-01-30] MEDS: Isosorbide MONOnitrate (24 HR) 60 MG TAB.ER.24H PO SCH (08:45)
[2017-01-30] MEDS: Insulin LISPRO 300 UNITS/3 ML VIAL SQ SCH ×4 (08:46→13:12)
[2017-01-30] MEDS: clonazePAM 1 MG TABLET PO PRN (08:46)
[2017-01-30] MEDS: Aspirin 81 MG TAB.CHEW PO SCH (08:47)
--- NOTE | 2017-01-30 10:21 | Nephrology Progress Note ---
Date of Encounter: 01/30/17 Time of Encounter: 10:10 - Assessment and Plan (1) ESRD (end stage renal disease) on dialysis Current Visit: No Status: Chronic 1. ESRD. was dialyzed yesterday. mild hyperkalemia. rpt serum p04. add phoslo 2. HTN. BP stable this morning . cont current meds 3. Anemia. GI w.u neg for any acute source of bleed. cont aranesp. HB stable today at 8 Subjective Principal diagnosis: Pleural effusion Interval history: egd; retained food in stomch c/w gastroparesis. colonoscop; 10 mm non bleeding polp, poor prep, no bleeding stable over night, feels weak Objective - Vital Signs Vital signs: Vital Signs Temp Pulse Resp BP Pulse Ox 01/30/17 07:00 84 15 133/60 92 01/30/17 04:58 97.9 F 82 90 167/90 01/29/17 21:42 98.0 F 90 22 131/59 94 01/29/17 20:00 97.4 F L 18 161/72 01/29/17 19:40 154/42 01/29/17 19:10 129/28 01/29/17 18:40 163/36 01/29/17 18:10 154/59 01/29/17 17:40 131/50 01/29/17 17:10 148/59 01/29/17 16:40 150/46 01/29/17 16:10 97.4 F L 18 185/50 01/29/17 14:52 97.5 F L 79 18 141/74 90 01/29/17 11:48 98.2 F 87 18 115/42 92 01/29/17 10:17 98.4 F 82 20 142/88 97 Intake and Output 01/29/17 01/30/17 01/30/17 23:59 07:59 15:59 Intake Total 600 / 600 100 / 100 Output Total 3600 / 3600 Balance -3000 / -3000 100 / 100 Intake: Oral 0 / 0 100 / 100 Intake, Rinseback and 600 / 600 Flushes Output: Urine 0 / 0 Total Dialysis (HD) 3600 / 3600 Output Other: Meal Breakfast Weight 101.5 kg Blood Glucose* 83 204 Hemodialysis Net Fluid 3000 Removed (mL) Patient Weight 01/30/17 23:59 Weight 101.5 kg - General Appearance Exam: CVS; s1s2 present, reg, no murmurs RESP; decreased air entry at bases, left greter than rt ABD;soft, NT, BS present, no organomegaly 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 dp pulse hard to palpate - Lab 01/30/17 04:06 01/29/17 06:23 Most recent lab results Calcium 9.1 mg/dL (8.6-10.8) 01/29/17 06:23 Phosphorus 9.7 mg/dL (2.3-4.7) H 01/26/17 06:26 Magnesium 2.1 mg/dL (1.6-2.6) 01/26/17 06:26 Consult Discharge Plan - Plan Referrals: Colt Espinoza MD [Non-Partnered Physician] -
[2017-01-30] MEDS ORDERED: Calcium Acetate 667 MG CAPSULE PO SCH (12:00)
[2017-01-30] MEDS: 0.9 % Sodium Chloride 1,000 ML IVC SCH (13:05)
[2017-01-30 15:37] VITALS: BP 179/83
--- NOTE | 2017-01-30 15:39 | Discharge Summary ---
Date of Encounter: 01/30/17 Time of Encounter: 15:34 - Discharge Diagnosis (1) Anemia Priority: Secondary Status: Chronic Qualifiers: Anemia type: due to chronic kidney disease Chronic kidney disease stage: on chronic dialysis Qualified Code(s): N18.6 - End stage renal disease; D63.1 - Anemia in chronic kidney disease; Z99.2 - Dependence on renal dialysis (2) Hyperkalemia Priority: Secondary Status: Acute (3) Pleural effusion Priority: Secondary Status: Chronic (4) ESRD (end stage renal disease) on dialysis Priority: Secondary Status: Acute (5) Pleuritic chest pain Priority: Secondary Status: Acute (6) Type 2 diabetes mellitus Priority: Secondary Status: Acute Qualifiers: Diabetes mellitus complication status: with kidney complications Diabetes mellitus complication detail: with chronic kidney disease Diabetes mellitus long-term insulin use: with long-term use Chronic kidney disease stage: on chronic dialysis Qualified Code(s): E11.22 - Type 2 diabetes mellitus with diabetic chronic kidney disease; N18.6 - End stage renal disease; Z79.4 - retirement (current) use of insulin; Z99.2 - Dependence on renal dialysis - Discharge Medications Prescriptions: Omeprazole [PriLOSEC] 20 mg PO BIDAC #60 cap Home Medications: Aspirin 81 mg PO DAILY #30 tab.chew 12/22/15 [Rx] HYDROcodone/Acet 10/325 mg [[place] 10-325 mg] 1 tab PO QID PRN 01/21/16 [History] Venlafaxine XR (24 HR) [Effexor XR] 37.5 mg PO HS 04/20/16 [History] clonazePAM [Klonopin] 2 mg PO BID PRN 04/20/16 [History] Insulin ASPART [NovoLOG] 5 - 10 unit SQ TIDWM 04/21/16 [History] Clopidogrel [Plavix] 75 mg PO DAILY tablet 04/23/16 [Rx] Omeprazole [PriLOSEC] 20 mg PO BID raymond. 04/23/16 [Rx] Atorvastatin [Lipitor] 40 mg PO DAILY 08/12/16 [History] Isosorbide MONOnitrate (24 HR) [Imdur] 120 mg PO DAILY #60 tab.er.24h 11/13/16 [ Rx] Lisinopril [Zestril] 20 mg PO BID 60 Days 11/13/16 [Rx] Metoprolol [Lopressor] 75 mg PO BID #90 tablet 11/13/16 [Rx] Carvedilol [Coreg] 25 mg PO QID 01/23/17 [History] CloNIDine Patch [Catapres-Tts] 0.2 mg TD QWEEK 01/23/17 [History] Insulin DETEMIR [Levemir] 60 - 80 unit SQ HS 01/23/17 [History] Acetaminophen [Tylenol] 650 mg PO Q6HR PRN tab 01/30/17 [Rx] Omeprazole [PriLOSEC] 20 mg PO BIDAC #60 cap 01/30/17 [Rx] Allergies/Adverse Reactions: Allergies Amoxicillin Allergy (Verified 01/22/17 15:39) Hives ondansetron [From Zofran (as hydrochloride)] Adverse Reaction (Verified 15:39) Vomiting Date of admission: 01/25/17 16:57 Primary care physician: PCP NONE Consults: 01/27/17 08:45 Consult to Dialysis [CONS] ONCE 01/27/17 18:11 Consult to Gastroenterology [CONS] Routine Consulting Provider: Gastroenterology [facility] Reason for Consult: Anaemia Time Notified: 18:11 Call Completed: No 01/29/17 08:45 Consult to Dialysis [CONS] ONCE - Patient Status Disposition: Home, Self-Care Condition: Good Overall status at discharge: patient is progressing back to baseline - Discharge Instructions Follow Up With: Colt Espinoza MD [Non-Partnered Physician] - - Diet and Activity Activity: resume usual activities as tolerated Diet: advance to your usual diet Hospital course: Ms. Benavidez is a 36 year old female with hypertension, type 2 diabetes, coronary artery disease status post stent placement, history of DVTs, peripheral vascular disease status post right BKA and left forefoot amputation, end-stage renal disease on hemodialysis Wednesday presented to ER with left- sided pleuritic chest pain and chest x-ray left-sided effusion noted. She had chest tube which has been taken out and since then she has been doing well. Her Hemoglobin droped to 6.6. She was transfused 2 unit PRBC and given iron supplementation .. Dr Bonilla did EGD and Cscope. EGD showed gastroparesis/ Cscope showed and non bleeding polyp whcih is removed. posttransfusion hemoglobin above 8 x 2 which is satisfactory. She was seen by her overlock collar setter during this her hospital stay. - Time Spent with Patient Total time spent providing and/or coordinating discharge services: Greater than 30 minutes - Constitutional Vitals: Temp Pulse Resp BP Pulse Ox 97.9 F 84 15 133/60 92 01/30/17 04:58 01/30/17 07:00 01/30/17 07:00 01/30/17 07:00 01/30/17 07:00 General appearance: Present: A&O X 3, no acute distress, obese - Head Head exam: Present: atraumatic, normocephalic - Eye Eye exam: Present: PERRL, conjuntiva pink, sclera anicteric Pupils: Present: PERRL - Neck Neck exam general surgery: Present: supple, trachea midline. Absent: lymphadenopathy - Respiratory Respiratory exam: Present: CTAB. Absent: accessory muscle use, rales, rhonchi, wheezes - Cardiovascular Cardiovascular exam: Present: RRR, +S1, +S2. Absent: diastolic murmur, gallop, rubs, systolic murmur - GI/Abdominal GI/Abdominal exam: Present: normal bowel sounds, soft, no peritoneal signs. Absent: distended, tenderness - Extremities Exam Extremities exam: Present: warm, radial pulses palpable and symetrical. Absent : calf tenderness, cyanotic, pedal edema - Neurological Exam Neurological exam: Present: CN II-XII intact, oriented X3, no focal deficits. Absent: pronater drift, facial droop, speech deficit - Skin Skin exam: Present: dry, intact
--- NOTE | 2017-01-30 16:37 | Physician Discharge Referral ---
Home Health/Hosp Referral Info Transfer to: Home Health Attending Provider: graciela Provider in Charge Post Discharge: PCP - Diagnosis (1) Anemia Status: Chronic (2) Hyperkalemia Status: Acute (3) Pleural effusion Status: Chronic (4) ESRD (end stage renal disease) on dialysis Status: Acute (5) Pleuritic chest pain Status: Acute (6) Type 2 diabetes mellitus Status: Acute - Respiratory Orders Oxygen / L per min Smoking Cessation: Smoking cessation has been advised. For more information, call the [place] Tobacco Quit Line at 0-240-SWHN-NOW. - Activity Activity Orders: Ambulate - Services Needed Following services are medically necessary services: Nursing, Home Health Aide, Physical Therapy, Occupational Therapy - Transfer Medications Prescriptions: Omeprazole [PriLOSEC] 20 mg PO BIDAC #60 cap Home Medications: Aspirin 81 mg PO DAILY #30 tab.chew 12/22/15 [Rx] HYDROcodone/Acet 10/325 mg [[place] 10-325 mg] 1 tab PO QID PRN 01/21/16 [History] Venlafaxine XR (24 HR) [Effexor XR] 37.5 mg PO HS 04/20/16 [History] clonazePAM [Klonopin] 2 mg PO BID PRN 04/20/16 [History] Insulin ASPART [NovoLOG] 5 - 10 unit SQ TIDWM 04/21/16 [History] Clopidogrel [Plavix] 75 mg PO DAILY tablet 04/23/16 [Rx] Omeprazole [PriLOSEC] 20 mg PO BID capsule. 04/23/16 [Rx] Atorvastatin [Lipitor] 40 mg PO DAILY 08/12/16 [History] Isosorbide MONOnitrate (24 HR) [Imdur] 120 mg PO DAILY #60 tab.er.24h 11/13/16 [ Rx] Lisinopril [Zestril] 20 mg PO BID 60 Days 11/13/16 [Rx] Metoprolol [Lopressor] 75 mg PO BID #90 tablet 11/13/16 [Rx] Carvedilol [Coreg] 25 mg PO QID 01/23/17 [History] CloNIDine Patch [Catapres-Tts] 0.2 mg TD QWEEK 01/23/17 [History] Insulin DETEMIR [Levemir] 60 - 80 unit SQ HS 01/23/17 [History] Acetaminophen [Tylenol] 650 mg PO Q6HR PRN tab 01/30/17 [Rx] Omeprazole [PriLOSEC] 20 mg PO BIDAC #60 cap 01/30/17 [Rx] Allergies/Adverse Reactions: Allergies Amoxicillin Allergy (Verified 01/22/17 15:39) Hives ondansetron [From Zofran (as hydrochloride)] Adverse Reaction (Verified 15:39) Vomiting Certification: Further, I certify that my clinical findings support that this patient is homebound (i.e. absences from home require considerable and taxing effort and are for medical reasons or advent services or infrequently or short duration when for other reasons) because: Homebound Reason: Patient requires assistance of a person or device to safely leave home Attestation: My signature below is to certify that this patient is under my care and that I, or nurse practitioner, or a physician's assistant toddler teacher working with me, has a face-to -face encounter with this patient.
== END 2017-01-30 17:09 | disposition home or self-care (01) | DRG 682 ==
LOC: EMEROO 15:02 → 2NENU 15:02
PROVIDERS: ADMIT Family Medicine; ATTEND Internal Medicine

== ENCOUNTER 2017-02-01 03:22 | Inpatient (IN) ==
--- NOTE | 2017-02-01 04:45 | Emergency Department Note ---
Disposition Clinical Impression: Hypoxia, Dyspnea, HCAP (healthcare-associated pneumonia) Disposition: Still a Patient Condition: Fair Referrals: NONE,PCP [Non-Partnered Physician] - Forms: ED Satisfaction Letter Time of Disposition: 07:12 SOB HPI - General Chief Complaint: ED Shortness of Breath/Dyspnea Stated Complaint: MARCO Time Seen by Provider: 02/01/17 04:40 Source: patient, EMS Limitations: no limitations Nursing Notes Reviewed: Yes Vital Signs Reviewed: Yes - History of Present Illness 36-year-old female history of ESRD HD on MWF, hypertension, diabetes, congestive heart failure presents to the ED for difficulty breathing. Patients typically on 3 L home oxygen supplementation. This evening patient woke up short of breath checked her pulse ox and was 79%. She after oxygen 25 L became appropriately. She has been complaining of nonproductive cough. Denies any fever, chest pain, headache, abdominal pain or nausea or vomiting. She was just recently discharged on Wednesday with fluid over the lungs requiring a chest tube in the left chest wall. She has a follow-up appointment sometime next week. Patient is currently on 4 liters 98%. Will check a to view chest x- ray and basic labs. Disposition pending workup. She states she fell asleep this afternoon admits her afternoon dose of her antihypertensives. She is hypertensive here. Will attempt to get IV animal sitter labetalol for blood pressure control. Pt Subjective Complaint: shortness of breath, cough - Related Data Home Medications Medication Instructions Recorded Confirmed HYDROcodone/Acet 10/325 mg [[place] 1 tab PO QID PRN 01/21/16 01/23/17 10-325 mg] Venlafaxine XR (24 HR) [Effexor XR] 37.5 mg PO HS 04/20/16 01/23/17 clonazePAM [Klonopin] 2 mg PO BID PRN 04/20/16 01/23/17 Insulin ASPART [NovoLOG] 5 - 10 unit SQ TIDWM 04/21/16 01/23/17 Atorvastatin [Lipitor] 40 mg PO DAILY 08/12/16 01/23/17 Carvedilol [Coreg] 25 mg PO QID 01/23/17 01/23/17 CloNIDine Patch [Catapres-Tts] 0.2 mg TD QWEEK 01/23/17 01/23/17 Insulin DETEMIR [Levemir] 60 - 80 unit SQ HS 01/23/17 01/23/17 Previous Rx's Medication Instructions Recorded Aspirin 81 mg PO DAILY #30 tab.chew 12/22/15 Clopidogrel [Plavix] 75 mg PO DAILY tablet 04/23/16 Omeprazole [PriLOSEC] 20 mg PO BID capsule. 04/23/16 Isosorbide MONOnitrate (24 HR) 120 mg PO DAILY #60 tab.er.24h 11/13/16 [Imdur] Lisinopril [Zestril] 20 mg PO BID 60 Days 11/13/16 Metoprolol [Lopressor] 75 mg PO BID #90 tablet 11/13/16 Acetaminophen [Tylenol] 650 mg PO Q6HR PRN tab 01/30/17 Omeprazole [PriLOSEC] 20 mg PO BIDAC #60 cap 01/30/17 Allergies Allergy/AdvReac Type Severity Reaction Status Date / Time Amoxicillin Allergy Hives Verified 01/22/17 15:39 ondansetron AdvReac Vomiting Verified 01/22/17 15:39 [From Zofran (as hydrochloride)] All systems ED: reviewed and negative except as stated. Review of Systems: As Per HPI Constitutional: Denies: fever, chills Cardiovascular: Denies: chest pain Respiratory: Reports: cough, dyspnea Gastrointestinal: Denies: abdominal pain, nausea, vomiting Genitourinary: Denies: urgency, dysuria Musculoskeletal: Denies: back pain, neck pain Integumentary: Denies: rash, abrasion Neurological: Denies: headache Past Medical History - Past Medical History Attestation: Yes The following information was validated with the patient. Source: patient Medical history: Reports: coronary artery disease, DVT, diabetes, dialysis, hypertension, renal disease Surgical history: Reports: angioplasty/stent, hip replacement, hysterectomy, other (left knee arthroscopy, right BKA, leftt forefoot amputation) Psychiatric history: Reports: anxiety, depression PATTERN HAND history: Reports: no PATTERN HAND history, other - Social History Smoking Status: Never smoker Smokeless Tobacco Status: No Alcohol use: Reports: none Drug use: Reports: none Physical Exam - General Limitations: no limitations General appearance: alert, in no apparent distress, obese - Head Head exam: atraumatic, normocephalic, normal inspection - Eye Eye exam: Present: normal appearance, PERRL, EOMI - ENT ENT exam: normal exam, normal oropharynx, mucous membranes moist - Neck Neck exam: Present: normal inspection, full ROM, trachea midline - Chest Chest inspection: Present: normal inspection, symmetric chest wall rise, tenderness (left lateral chest wall from prior chest tube), other (pleura-cath in right chest wall) - Respiratory Respiratory exam: Present: normal lung sounds bilaterally, wheezes - Expanded Respiratory Exam Location: rales: Lower - Cardiovascular Cardiovascular exam: Present: regular rate, normal rhythm, normal heart sounds - Abdominal Exam Abdominal exam: Present: soft, Non-Tender, normal bowel sounds. Absent: tenderness, distention, guarding, rebound, rigidity - Extremities Exam Extremities exam: Present: full ROM, other (Above knee right amputation, left foot amputation) - Neurological Exam Neurological exam: Present: alert, oriented X3 - Skin Skin exam: Present: warm, dry, intact, normal color. Absent: rash Course - Reevaluation(s) Reevaluation #1: 2 view chest x-ray shows opacity in the right lung base suggestive of active Lexuses versus pneumonia. Given her symptoms of hypoxia difficulty breathing with cough will treat as pneumonia, healthcare acquired pneumonia. Patient is a vascular path we have attempted to extended peripheral IVs. Also attempted a ultrasound guided external jugular vein with no success. We then elected to do a right femoral central line with patient's consent. Guide wire was easily past with good dilation of the vessel however the triple lumen catheter was difficult to pass greater than 2 cm. A single lumen was advanced and blood work and blood cultures were drawn. I sutured the catheter in place however it stopped flushing and would not withdraw. The catheter was therefore withdrawn. Pressure was held with good hemostasis. States she is had difficulty with line placement on prior admission. PICC was able to place a line, it is currently 0640, will await for PICC team and placement. Blood cultures drawn. Will initiate Zosyn, Vanc, and Levaquin for antibiotic coverage. Awaiting lab results. Time: 06:35 Reevaluation #2: No leukocytosis. Creatinine appear stable. Potassium 5. She has stable chronic anemia. Serum ketones her elevated 0.42. BNP significantly elevated 2920. Slight acidosis without significant gap. At this time will treat for possible HCAP. Due to difficult vascular access team has been consulted for line placement. Amoxicillin allergy, will treat with Ertapenem and Vancomycin. Patient signed out to daytime physician Dr. Jackson and Dr. Ghanshyam Gonzalez. Pending vascular access information to medicine. Remains stable with good oxygen saturation. Scheduled for hemodialysis on [facility] with Dr. Aly her jacker. Her BP has come down without intervention SBP 200 --> 172. Vital Signs Temperature 98.0 F 02/01/17 03:23 Pulse Rate 94 02/01/17 03:23 Respiratory Rate 20 02/01/17 03:23 Blood Pressure 203/90 02/01/17 03:23 O2 Sat by Pulse Oximetry 98 02/01/17 03:23 Temperature 98.0 F 02/01/17 03:23 Pulse Rate 86 02/01/17 07:18 Respiratory Rate 18 02/01/17 07:18 Blood Pressure 172/87 02/01/17 07:18 O2 Sat by Pulse Oximetry 98 02/01/17 07:18 Oxygen Delivery Oxygen Delivery Room Air Procedures - Central Line Placement Right Femoral Central Line Inserted*: Yes Central Line Catheter Replacement*: Yes Central Line Insertion: elective Consent Obtained: written consent Procedural Pause: verify patient name and date of , timeout performed per policy, shelby and assess the site, assemble equipment and verify supplies, perform hand hygiene Patient Placed on Monitor/Pulse Ox: Yes During the Procedure: clinician is wearing sterile gloves, cap, mask,& gown during insertion, sterile field and sterile technique are maintained, patient's face is covered with drape or mask and wearing a cap, everyone in room is wearing a mask Central Line Prep: Chlorhexidine scrub Prep the Procedure Site: apply chloraprep to the skin using a back and forth scrubbing motion, apply chloraprep for 30 seconds (upper body), 1-2 min ( femoral sites), allow prep to dry, drape the patient with a full body drape Local Anesthetic: lidocaine 1% Amount of anesthesia used (mL): 2 Ultrasound Used for Placement: Yes Central Line Lumen Inserted: single, triple Patient Tolerated Procedure: well Complications: other (unable to pass triple lumen catheter, exchanged with single lumen with good flush and withdrew blood, single lumen sutured into placed but malpositioned (unable to flush and withdraw), line was therefore pulled) Name of Clinician Inserting Central Line: Diogenes Arauz DO Date: 02/01/17 Time: 06:42 Additional Comments: unable to pass triple lumen catheter, exchanged with single lumen with good flush and withdrew blood, single lumen sutured into placed but malpositioned ( unable to flush and withdraw), line was therefore pulled - Phlebotomy Reason for Blood Draw by MD: to place line Obtained Bloods via: femoral vein stick, during central line insertion Estimated cc's Blood Obtained: 50 Shortness of Breath/Dyspnea - Medical Records Medical records reviewed: Yes I reviewed the patient's medical records. - Lab Data Lab results reviewed: Yes I reviewed the patient's lab results. Result diagrams: 02/01/17 06:20 02/01/17 06:20 Lab Results 02/01/17 02/01/17 02/01/17 Range/Units 06:20 06:20 06:20 WBC 7.7 (4.3-11.1) K/mcL RBC 2.77 L (3.82-4.97) M/mcL Hgb 7.6 L (11.5-15.4) g/dL Hct 25.2 L (35.3-44.9) % MCV 91.0 (83.0-100.0) fL MCH 27.4 L (28.0-33.3) pg MCHC 30.2 L (31.6-35.5) g/dL RDW 15.9 H (11.5-14.5) % Plt Count 247 (140-400) K/mcL MPV 10.0 (9.4-12.4) fL Immature Gran % 0.7 (0-4) % Seg Neutrophils % 84.9 % Lymphocytes % 5.9 % Monocytes % 6.8 % Eosinophils % 1.3 % Basophils % 0.4 % Neutrophils # 6.5 (1.6-8.9) K/mcL Lymphocytes # 0.5 L (0.6-4.6) K/mcL Monocytes # 0.5 (0.0-1.3) K/mcL Eosinophils # 0.1 (0.0-0.6) K/mcL Basophils # 0.0 (0.0-0.2) K/mcL VBG pH (7.32-7.42) pH Units VBG pCO2 (41-51) mmHg VBG pO2 (25-40) mmHg VBG HCO3 (21-27) mEq/L Sodium 136 D (136-145) mEq/L Potassium 5.0 H (3.5-4.5) mEq/L Chloride 96 L (98-109) mEq/L Carbon Dioxide 25 (19-29) mEq/L BUN 85 H (7-20) mg/dL Creatinine 8.60 H (0.57-1.11) mg/dL Est GFR ( Amer) 6 L (> 60) Est GFR (Non-Af Amer) 5 L (> 60) BUN/Creatinine Ratio 10 (6-26) Glucose 237 H (70-99) mg/dL Calculated Osmolality 316 H (280-300) Lactic Acid 1.0 (0.5-2.2) mmol/L Calcium 8.6 (8.6-10.8) mg/dL Troponin I (0-0.03) ng/mL B-Natriuretic Peptide (0-100) pg/mL Beta-Hydroxybutyric Acd 0.42 H (0.02-0.27) mmol/L 02/01/17 02/01/17 02/01/17 Range/Units 06:20 06:20 06:20 WBC (4.3-11.1) K/mcL RBC (3.82-4.97) M/mcL Hgb (11.5-15.4) g/dL Hct (35.3-44.9) % MCV (83.0-100.0) fL MCH (28.0-33.3) pg MCHC (31.6-35.5) g/dL RDW (11.5-14.5) % Plt Count (140-400) K/mcL MPV (9.4-12.4) fL Immature Gran % (0-4) % Seg Neutrophils % % Lymphocytes % % Monocytes % % Eosinophils % % Basophils % % Neutrophils # (1.6-8.9) K/mcL Lymphocytes # (0.6-4.6) K/mcL Monocytes # (0.0-1.3) K/mcL Eosinophils # (0.0-0.6) K/mcL Basophils # (0.0-0.2) K/mcL VBG pH 7.31 L (7.32-7.42) pH Units VBG pCO2 49 (41-51) mmHg VBG pO2 83 H (25-40) mmHg VBG HCO3 24.7 (21-27) mEq/L Sodium (136-145) mEq/L Potassium (3.5-4.5) mEq/L Chloride (98-109) mEq/L Carbon Dioxide (19-29) mEq/L BUN (7-20) mg/dL Creatinine (0.57-1.11) mg/dL Est GFR ( Amer) (> 60) Est GFR (Non-Af Amer) (> 60) BUN/Creatinine Ratio (6-26) Glucose (70-99) mg/dL Calculated Osmolality (280-300) Lactic Acid (0.5-2.2) mmol/L Calcium (8.6-10.8) mg/dL Troponin I 0.07 H* (0-0.03) ng/mL B-Natriuretic Peptide 2920 H (0-100) pg/mL Beta-Hydroxybutyric Acd (0.02-0.27) mmol/L - Radiology Data Radiology results reviewed: Yes I reviewed the patient's radiology results. Chest X-Ray 02/01/17 03:28 IMPRESSION: New right basilar atelectasis or pneumonia with grossly stable left-sided pleuroparenchymal disease. D/ / Fidencio Rosenthal MD / Fidencio Rosenthal MD Interpreting Provider: Fidencio Rosenthal MD - EKG Data EKG attestation: Yes I reviewed and interpreted this EKG. EKG results narrative: EKG performed 0 330 normal sinus rhythm 92 bpm, poor R-R wave progression, normal axis, there are no ST elevations or depressions, no T-wave inversions. Intervals are within normal limits DC interval 167 QRS 106 QT QTC 347 396. This is an abnormal EKG. Compared to old EKG performed 01/25/2017 shows consistent findings normal sinus rhythm with poor R-R wave progression. No acute ischemic changes. Critical Care Time Critical Care Time: Yes Total Critical Care Time: 40 Attestation: Critical care performed: Time is exclusive of separately billable procedures. Time includes: direct patient care, patient reassessment, coordination of patient care, interpretation of data (laboratory data, radiology data, and respiratory data), review of patient's medical records, medical consultation and documentation of patient care. Procedures included in critical care time: Procedures excluded from critical care time: Central line placement attempt S.Agnieszka. - Carmina Situation: Demographics, MOA Background: Presenting Complaint, Relevant PMH, Meds, & Allergies Assessment: Vital Signs, Course and respsone to treatment, Exam Concerns, Patient/Family Expectation, Pertinant Lab Results, Outstanding Labs Recommendation: Barrier(s) to disposition, Recommendation based on pending studies, treatments, or consults Carmina Report Given to: Dr. Jackson and Dr. Torrie Grewal Repor Time: 07:00 Attestation Statement - Attestation Attestation: I, Nolberto Mcguire MD, personally evaluated this patient and discussed their management with the resident physician. I reviewed the resident's note and agree with the documented findings, medical decision making, and plan of care. 36-year-old female presents to the emergency department with a complaint of increased shortness of breath. Patient was just discharged from the hospital yesterday after she had a chest tube in her left chest for a pleural effusion. She is on home oxygen. She has had some nonproductive cough. No fever. Some pleuritic chest pain with coughing and deep breathing. On examination patient is a well-developed well-nourished female in no acute distress. She is alert and oriented 3. There is no cyanosis or diaphoresis. There is some tenderness to palpation over the left chest. Breath sounds are decreased on the left. Heart regular. Abdomen soft and nontender with normal bowel sounds. 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 Chest x-ray shows the left pleural effusion which is improved from previously. There is some new right basilar airspace disease. Labs reviewed. At shift change take patient is being signed out to the oncoming dayshift team, Dr. Ghanshyam Gonzalez and Dr. Jackson.
[2017-02-01 06:34] LABS: Basophils % 0.4 %; Eosinophils # 0.1 K/mcL (0.0-0.6); Eosinophils % 1.3 %; Hematocrit 25.2 % (35.3-44.9); Immature Granulocytes % 0.7 % (0-4); Lymphocytes # 0.5 K/mcL (0.6-4.6); Lymphocytes % 5.9 %; Mean Corpuscular HGB Conc 30.2 g/dL (31.6-35.5); Mean Corpuscular Hemoglobin 27.4 pg (28.0-33.3); Monocytes # 0.5 K/mcL (0.0-1.3); Monocytes % 6.8 %; Neutrophils # 6.5 K/mcL (1.6-8.9); Platelet Count 247 K/mcL (140-400); Red Blood Count 2.77 M/mcL (3.82-4.97); Red Cell Distribution Width 15.9 % (11.5-14.5); Segmented Neutrophils % 84.9 %; VBG HCO3 24.7 mEq/L (21-27); VBG PH 7.31 pH Units (7.32-7.42)
[2017-02-01] MEDS ORDERED: *HR* HYDROcodone/Acet 5/325 mg TABLET PO ONE (06:37)
[2017-02-01 06:46] LABS: Calcium 8.6 mg/dL (8.6-10.8)
[2017-02-01 06:47] LABS: Beta-Hydroxybutyric Acid 0.42 mmol/L (0.02-0.27)
[2017-02-01 06:48] LABS: Hemoglobin 7.6 g/dL (11.5-15.4)
[2017-02-01] MEDS ORDERED: Vancomycin 1,250 MG in D5% in Water 250 ML IVPB ONE (07:05)
[2017-02-01] MEDS ORDERED: Levofloxacin 750 MG/150 ML 750 MG/150 ML BAG IVPB ONE (07:05)
--- NOTE | 2017-02-01 07:59 | Emergency Department Note ---
Disposition Clinical Impression: Hypoxia, HCAP (healthcare-associated pneumonia) Dyspnea Qualifiers: Dyspnea type: unspecified Qualified Code(s): R06.00 - Dyspnea, unspecified Disposition: Admitted As Inpatient Condition: Fair Referrals: NONE,PCP [Non-Partnered Physician] - Forms: ED Satisfaction Letter Time of Disposition: 07:59 SOB HPI - General Chief Complaint: ED Shortness of Breath/Dyspnea Stated Complaint: MARCO Time Seen by Provider: 02/01/17 04:40 Source: patient, EMS Mode of arrival: wheelchair Limitations: no limitations Nursing Notes Reviewed: Yes Vital Signs Reviewed: Yes - Related Data Home Medications Medication Instructions Recorded Confirmed HYDROcodone/Acet 10/325 mg [[place] 1 tab PO QID PRN 01/21/16 01/23/17 10-325 mg] Venlafaxine XR (24 HR) [Effexor XR] 37.5 mg PO HS 04/20/16 01/23/17 clonazePAM [Klonopin] 2 mg PO BID PRN 04/20/16 01/23/17 Insulin ASPART [NovoLOG] 5 - 10 unit SQ TIDWM 04/21/16 01/23/17 Atorvastatin [Lipitor] 40 mg PO DAILY 08/12/16 01/23/17 Carvedilol [Coreg] 25 mg PO QID 01/23/17 01/23/17 CloNIDine Patch [Catapres-Tts] 0.2 mg TD QWEEK 01/23/17 01/23/17 Insulin DETEMIR [Levemir] 60 - 80 unit SQ HS 01/23/17 01/23/17 Previous Rx's Medication Instructions Recorded Aspirin 81 mg PO DAILY #30 tab.chew 12/22/15 Clopidogrel [Plavix] 75 mg PO DAILY tablet 04/23/16 Omeprazole [PriLOSEC] 20 mg PO BID capsule. 04/23/16 Isosorbide MONOnitrate (24 HR) 120 mg PO DAILY #60 tab.er.24h 11/13/16 [Imdur] Lisinopril [Zestril] 20 mg PO BID 60 Days 11/13/16 Metoprolol [Lopressor] 75 mg PO BID #90 tablet 11/13/16 Acetaminophen [Tylenol] 650 mg PO Q6HR PRN tab 01/30/17 Omeprazole [PriLOSEC] 20 mg PO BIDAC #60 cap 01/30/17 Allergies Allergy/AdvReac Type Severity Reaction Status Date / Time Amoxicillin Allergy Hives Verified 01/22/17 15:39 ondansetron AdvReac Vomiting Verified 01/22/17 15:39 [From Zofran (as hydrochloride)] Constitutional: Denies: fever, chills Cardiovascular: Denies: chest pain Respiratory: Reports: cough, dyspnea Gastrointestinal: Denies: abdominal pain, nausea, vomiting Genitourinary: Denies: urgency, dysuria Musculoskeletal: Denies: back pain, neck pain Integumentary: Denies: rash, abrasion Neurological: Denies: headache Past Medical History - Past Medical History Medical history: Reports: coronary artery disease, DVT, diabetes, dialysis, hypertension, renal disease Surgical history: Reports: angioplasty/stent, hip replacement, hysterectomy, other (left knee arthroscopy, right BKA, leftt forefoot amputation) Psychiatric history: Reports: anxiety, depression 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 Arauz, I spoke with the hospitalist will be admitting the patient, PICC line consult was called, vancomycin and ertapenem and Levaquin were started empirically however not given in the ER prior to line placement after several unsuccessful attempts at ultrasound- guided peripheral and a R fem central venous catheter. Patient is hemodynamically stable at the time of the disposition, satting 98% on 3 L nasal cannula, will be readmitted for age, effusions, MARCO, ESRD. Vital Signs Temperature 98.0 F 02/01/17 03:23 Pulse Rate 94 02/01/17 03:23 Respiratory Rate 20 02/01/17 03:23 Blood Pressure 203/90 02/01/17 03:23 O2 Sat by Pulse Oximetry 98 02/01/17 03:23 Temperature 98.0 F 02/01/17 03:23 Pulse Rate 86 02/01/17 07:18 Respiratory Rate 18 02/01/17 07:18 Blood Pressure 172/87 02/01/17 07:18 O2 Sat by Pulse Oximetry 98 02/01/17 07:18 Oxygen Delivery Oxygen Delivery Room Air Shortness of Breath/Dyspnea - MDM Narrative Medical decision making narrative: Please See Dr Corley's note for H&P - Differential Diagnosis Likely: acute exacerbation of chronic obstructive airways disease, pneumonia, pulmonary embolism - Lab Data Lab results reviewed: Yes I reviewed the patient's lab results. Result diagrams: 02/01/17 06:20 02/01/17 06:20 Lab Results 02/01/17 02/01/17 02/01/17 Range/Units 06:20 06:20 06:20 WBC 7.7 (4.3-11.1) K/mcL RBC 2.77 L (3.82-4.97) M/mcL Hgb 7.6 L (11.5-15.4) g/dL Hct 25.2 L (35.3-44.9) % MCV 91.0 (83.0-100.0) fL MCH 27.4 L (28.0-33.3) pg MCHC 30.2 L (31.6-35.5) g/dL RDW 15.9 H (11.5-14.5) % Plt Count 247 (140-400) K/mcL MPV 10.0 (9.4-12.4) fL Immature Gran % 0.7 (0-4) % Seg Neutrophils % 84.9 % Lymphocytes % 5.9 % Monocytes % 6.8 % Eosinophils % 1.3 % Basophils % 0.4 % Neutrophils # 6.5 (1.6-8.9) K/mcL Lymphocytes # 0.5 L (0.6-4.6) K/mcL Monocytes # 0.5 (0.0-1.3) K/mcL Eosinophils # 0.1 (0.0-0.6) K/mcL Basophils # 0.0 (0.0-0.2) K/mcL VBG pH (7.32-7.42) pH Units VBG pCO2 (41-51) mmHg VBG pO2 (25-40) mmHg VBG HCO3 (21-27) mEq/L Sodium 136 D (136-145) mEq/L Potassium 5.0 H (3.5-4.5) mEq/L Chloride 96 L (98-109) mEq/L Carbon Dioxide 25 (19-29) mEq/L BUN 85 H (7-20) mg/dL Creatinine 8.60 H (0.57-1.11) mg/dL Est GFR ( Amer) 6 L (> 60) Est GFR (Non-Af Amer) 5 L (> 60) BUN/Creatinine Ratio 10 (6-26) Glucose 237 H (70-99) mg/dL Calculated Osmolality 316 H (280-300) Lactic Acid 1.0 (0.5-2.2) mmol/L Calcium 8.6 (8.6-10.8) mg/dL Troponin I (0-0.03) ng/mL B-Natriuretic Peptide (0-100) pg/mL Beta-Hydroxybutyric Acd 0.42 H (0.02-0.27) mmol/L 02/01/17 02/01/17 02/01/17 Range/Units 06:20 06:20 06:20 WBC (4.3-11.1) K/mcL RBC (3.82-4.97) M/mcL Hgb (11.5-15.4) g/dL Hct (35.3-44.9) % MCV (83.0-100.0) fL MCH (28.0-33.3) pg MCHC (31.6-35.5) g/dL RDW (11.5-14.5) % Plt Count (140-400) K/mcL MPV (9.4-12.4) fL Immature Gran % (0-4) % Seg Neutrophils % % Lymphocytes % % Monocytes % % Eosinophils % % Basophils % % Neutrophils # (1.6-8.9) K/mcL Lymphocytes # (0.6-4.6) K/mcL Monocytes # (0.0-1.3) K/mcL Eosinophils # (0.0-0.6) K/mcL Basophils # (0.0-0.2) K/mcL VBG pH 7.31 L (7.32-7.42) pH Units VBG pCO2 49 (41-51) mmHg VBG pO2 83 H (25-40) mmHg VBG HCO3 24.7 (21-27) mEq/L Sodium (136-145) mEq/L Potassium (3.5-4.5) mEq/L Chloride (98-109) mEq/L Carbon Dioxide (19-29) mEq/L BUN (7-20) mg/dL Creatinine (0.57-1.11) mg/dL Est GFR ( Amer) (> 60) Est GFR (Non-Af Amer) (> 60) BUN/Creatinine Ratio (6-26) Glucose (70-99) mg/dL Calculated Osmolality (280-300) Lactic Acid (0.5-2.2) mmol/L Calcium (8.6-10.8) mg/dL Troponin I 0.07 H* (0-0.03) ng/mL B-Natriuretic Peptide 2920 H (0-100) pg/mL Beta-Hydroxybutyric Acd (0.02-0.27) mmol/L - Radiology Data Radiology results reviewed: Yes I reviewed the patient's radiology results. Chest X-Ray 02/01/17 03:28 IMPRESSION: New right basilar atelectasis or pneumonia with grossly stable left-sided pleuroparenchymal disease. D/ / Fidencio Rosenthal MD / Fidencio Rosenthal MD Interpreting Provider: Fidencio Rosenthal MD Attestation Statement - Attestation Attestation: I personally interviewed and examined this patient and my medical decision- making was reviewed with the Resident Physician, Dr. Jackson. I agree with the documented findings, disposition and treatment plan as described except to the extent set forth below. Patient is a 36-year-old white female with an unfortunate history of chronic renal failure secondary to uncontrolled diabetes who is on hemodialysis Wednesday. Patient was recently discharged from hospital this past Wednesday following dyspnea secondary to a left pleural effusion which required thoracostomy placement. Patient's chest tube was discontinued and she was discharged home on Wednesday. Patient states since that time she has had subjective fever and chills, gradually worsening shortness of breath and diffuse thoracic back pain. Patient arrives hypoxic on room air was placed on nasal cannula O2. Patient was signed out to spend the night club manager team and Dr. Mcguire following initial evaluation, multiple attempts at IV placement and completion of labs. Patient initially had a chest x-ray during their assessment which shows a stable left pleural effusion as well as questionable changes in the right base consistent with atelectasis versus pneumonia. Patient 's white count is within normal limits. Patient's hemoglobin is stable and she has chronic anemia secondary to her kidney disease. Patient is hyperglycemic but CO2 normal. Elevated beta hydroxybutyrate. Patient's oxygen status is improved on nasal cannula oxygen she is satting 98% on 3 L. Patient with elevated blood pressure on arrival we will reevaluate that during ED course. At this time we are awaiting the PICC team to place a peripheral line so we can initiate IV antibiotics and patient will be admitted for further evaluation. We will also administer calcium for mild elevation in her potassium as her dialysis will be delayed today. Case was discussed with the hospitalist who accepted the patient for admission and will follow up on initiating meds once vascular access is obtained.
[2017-02-01] MEDS ORDERED: Ertapenem 1,000 MG in 0.9 % Sodium Chloride Mini Bag 100 ML IVPB SCH (08:00)
[2017-02-01] MEDS: *HR* HYDROcodone/Acet 10/325 mg TABLET PO PRN ×2 (11:07→22:44)
[2017-02-01] MEDS: *HR* Promethazine 25 MG/ML VIAL IVP PRN ×2 (11:07→18:39)
--- NOTE | 2017-02-01 11:42 | Internal Med History&Physical ---
Date of Encounter: 02/01/17 Time of Encounter: 11:36 Assessment and Plan (1) Hypoxia Current visit: Yes Status: Acute currently sating 98% on 3 l. unclear etiology,due for HD today cxr does show rt. sided consolidation vs atelectasis however a chest CT done recently also shows bilateral consolidation most likely atelectasis. She received stat doses of IV antibiotics at ED, She does not have fever or leukocytosis, denies worsening cough. will observe after HD today, less likely pneumonia, will send serum procalcitonin, currently sating 98% on 3l and the effusion on the left side is stable. patinet to be reasessed tomm for the need of antibiotics. (2) ESRD (end stage renal disease) on dialysis Current visit: No Status: Acute consulted nephrology for maintenance HD. she is regular M-W-F HD. (3) Hypertensive urgency Current visit: No Status: Acute patient has not taken her meds this morning. will restart her home meds. will give one dose of hydralazine 10 mg stat. monitor BP, to receive HD today. (4) Pleural effusion on left Current visit: No Status: Acute CXR shows stable effusion on the left. she is s/p chest tube placement on the last admission for pleural effusion, most likely from ESRD. consideration of pleurix catheter to be assesed as OP, no urgent need for now. (5) Elevated troponin Current visit: No Status: Acute Troponin chronically elevated in the setting of ESRD. Troponin today 0.07, possible troponin leak from hypertensive urgency and ESRD. Less likely ACS at this time. (6) Anemia in chronic kidney disease (CKD) Current visit: No Status: Chronic hgb stable at 7.6, most llikely from anemia of chronic kidney disease received 2 units blood trasnfusion on last admission recently will monitro cbc. renal following. Qualifiers: Chronic kidney disease stage: on chronic dialysis Qualified Code(s): N18.6 - End stage renal disease; D63.1 - Anemia in chronic kidney disease; Z99.2 - Dependence on renal dialysis Internal Medicine - H&P: HPI Chief complaint: difficulty in breathing Admitted From: Emergency Dept Plans for Post Hospital Care: Home History of present illness: Ms. Benavidez is a 36 year old female with history of ESRD HD on MWF, hypertension , diabetes, congestive heart failure presents to the ED for difficulty breathing. Patient was recently discharged, was treated for pleural effusion status post chest tube placement most likely from ESRD. Patients typically on 3 L home oxygen supplementation after the discharge. She has no history of COPD or asthma and was not previously on oxygen. Today morning, patient woke up short of breath checked her pulse ox and was 79%. She reports that she increase her oxygen to 5 L but was still having difficulty in breathing. She has been complaining of nonproductive cough. Denies any fever, chest pain, headache, abdominal pain or nausea or vomiting. She reports that she had nausea and has not taken her home medications this morning. At ED her blood pressure was elevated and at the time of my assessment her blood pressure is 200/134. currently sating 98% on 3l. She is complaining of nausea and back pain. She is due for dialysis today, renal has been consulted for maintenance hemodialysis. She received IV antibiotics for possible HCAP, chest x-ray showed right-sided atelectasis versus pneumonia. Past Med Surg Social Fam HX - Past Medical History Medical history: coronary artery disease, DVT, diabetes, dialysis, hypertension , renal disease Psychiatric history: anxiety, depression - Past Surgical History Surgical History: angioplasty/stent, hip replacement, hysterectomy, other - Social History Smoking Status: Never smoker Smokeless Tobacco Status: No Alcohol use: none Drug use: none - Family History Mother Adopted: No Family Member Ethnicity: Non- Living Status: Still Living Hx Family Cardiac Disorders: Yes (Father with coronary artery disease) Hx Family Respiratory Disorders: No Hx Family Cancer: Yes (Breast) Hx Family GI Disorders: No Hx Family Endocrine Disorder: Yes (Mother with dm) Hx Family Neuromuscular Disorders: No Hx Family Neurologic Disorders: No Hx Family HEENT Disorders: No Hx Family Autoimmune Disorders: No Internal Medicine - H&P: Meds Aspirin 81 mg PO DAILY #30 tab.chew 12/22/15 [Rx] HYDROcodone/Acet 10/325 mg [[place]ohoes 10-325 mg] 1 tab PO QID PRN 01/21/16 [History] Venlafaxine XR (24 HR) [Effexor XR] 37.5 mg PO HS 04/20/16 [History] Insulin ASPART [NovoLOG] 5 - 10 unit SQ TIDWM 04/21/16 [History] Clopidogrel [Plavix] 75 mg PO DAILY tablet 04/23/16 [Rx] Omeprazole [PriLOSEC] 20 mg PO BID capsule. 04/23/16 [Rx] Atorvastatin [Lipitor] 40 mg PO DAILY 08/12/16 [History] Isosorbide MONOnitrate (24 HR) [Imdur] 120 mg PO DAILY #60 tab.er.24h 11/13/16 [ Rx] Lisinopril [Zestril] 20 mg PO BID 60 Days 11/13/16 [Rx] Metoprolol [Lopressor] 75 mg PO BID #90 tablet 11/13/16 [Rx] Carvedilol [Coreg] 25 mg PO QID 01/23/17 [History] CloNIDine Patch [Catapres-Tts] 0.2 mg TD QWEEK 01/23/17 [History] Insulin DETEMIR [Levemir] 60 - 80 unit SQ HS 01/23/17 [History] Acetaminophen [Tylenol] 650 mg PO Q6HR PRN tab 01/30/17 [Rx] Omeprazole [PriLOSEC] 20 mg PO BIDAC #60 cap 01/30/17 [Rx] Allergies Amoxicillin Allergy (Verified 01/22/17 15:39) Hives ondansetron [From Zofran (as hydrochloride)] Adverse Reaction (Verified 15:39) Vomiting All Systems PM: A 10-system review of systems was performed and is negative for pertinent findings except as documented above in the HPI. - Constitutional Constitutional: as per HPI - EENT Eyes: as per HPI Ears: as per HPI Nose, mouth and throat: as per HPI - Breasts Breasts: as per HPI - Cardiovascular Cardiovascular ROS IM: as per HPI - Respiratory Respiratory: as per HPI - Gastrointestinal Gastrointestinal: as per HPI - Genitourinary Genitourinary: as per HPI Menstruation: as per HPI - Constitutional Vitals: Temp Pulse Resp BP Pulse Ox 98.0 F 86 18 184/79 98 02/01/17 03:23 02/01/17 07:18 02/01/17 08:33 02/01/17 08:33 02/01/17 07:18 General appearance: Present: A&O X 3, no acute distress Exam: neck- supple chest- decreased breath sounds on the left side cvs-s1 and s2, no m/r/g abd-soft, non tender, bs are presen ext- BKA on rt. 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 no swelling neuro- alert and awake, no focal neuro deficits. Internal Med - H&P Results - Labs CBC & Chem 7: 02/01/17 06:20 02/01/17 06:20
[2017-02-01] MEDS ORDERED: *HR* Heparin 10,000 UNIT/10 ML VIAL IV PRN (11:44)
[2017-02-01] MEDS ORDERED: 0.9 % Sodium Chloride 250 ML IVC PRN (11:44)
[2017-02-01] MEDS ORDERED: CLONAZEPAM 2 MG PO PRN (11:45)
[2017-02-01] MEDS ORDERED: 0.9 % Sodium Chloride 1,000 ML PRIME SCH (11:45)
[2017-02-01] MEDS ORDERED: CloNIDine Patch 0.2 MG PATCH (WEEKLY) TD SCH (11:45)
--- NOTE | 2017-02-01 12:15 | Nephrology Consult Note ---
Date of Encounter: 02/01/17 Time of Encounter: 11:55 Assessment and Plan (1) ESRD (end stage renal disease) on dialysis Current Visit: No Status: Chronic HCAP with ATB coverage. HD today, keeping MWF schedule. Orders given. History of Present Illness - Reason for Consult end stage renal disease - History of Present Illness Ms. Benavidez is a 36 year old female with ESRD who dialyzes at [facility] on MWF. Last dialysis on Wednesday. Ms. benavidez presented early Wednesday morning with shortness of breath., home O2 sat 79% and is on supplemental home O2 at 3L NC. Ms. Benavidez was discharged from hospital on Wednesday following large left pleural effusion , S/P chest tube placement and subsequent removal. Other PMH- coronary artery disease, DVT, diabetes, dialysis, hypertension, renal disease, angioplasty/stent, hip replacement, hysterectomy, other (left knee arthroscopy, right BKA, leftt forefoot amputation), anxiety, depression. CXR-new bibasilar atalectasis or pneumonia and grossly stable left-sided pleuroparenchymal disease. She was admitted with hypoxia, HCAP. Empiric Vanco, Levequin, Ertapenem. This morning she states she is breathing easier, though has increased pain on inspiration and some nausea. Past Med Surg Social Fam HX - Past Medical History Medical history: coronary artery disease, DVT, diabetes, dialysis, hypertension , renal disease Psychiatric history: anxiety, depression - Past Surgical History Surgical History: angioplasty/stent, hip replacement, hysterectomy, other - Social History Smoking Status: Never smoker Smokeless Tobacco Status: No Alcohol use: none Drug use: none - Family History Mother Adopted: No Family Member Ethnicity: Non- Living Status: Still Living Hx Family Cardiac Disorders: Yes (Father with coronary artery disease) Hx Family Respiratory Disorders: No Hx Family Cancer: Yes (Breast) Hx Family GI Disorders: No Hx Family Endocrine Disorder: Yes (Mother with dm) Hx Family Neuromuscular Disorders: No Hx Family Neurologic Disorders: No Hx Family HEENT Disorders: No Hx Family Autoimmune Disorders: No Medications and Allergies Aspirin 81 mg PO DAILY #30 tab.chew 12/22/15 [Rx] HYDROcodone/Acet 10/325 mg [[place] 10-325 mg] 1 tab PO QID PRN 01/21/16 [History] Venlafaxine XR (24 HR) [Effexor XR] 37.5 mg PO HS 04/20/16 [History] clonazePAM [Klonopin] 2 mg PO BID PRN 04/20/16 [History] Insulin ASPART [NovoLOG] 5 - 10 unit SQ TIDWM 04/21/16 [History] Clopidogrel [Plavix] 75 mg PO DAILY tablet 04/23/16 [Rx] Omeprazole [PriLOSEC] 20 mg PO BID capsule. 04/23/16 [Rx] Atorvastatin [Lipitor] 40 mg PO DAILY 08/12/16 [History] Isosorbide MONOnitrate (24 HR) [Imdur] 120 mg PO DAILY #60 tab.er.24h 11/13/16 [ Rx] Lisinopril [Zestril] 20 mg PO BID 60 Days 11/13/16 [Rx] Metoprolol [Lopressor] 75 mg PO BID #90 tablet 11/13/16 [Rx] Carvedilol [Coreg] 25 mg PO QID 01/23/17 [History] CloNIDine Patch [Catapres-Tts] 0.2 mg TD QWEEK 01/23/17 [History] Insulin DETEMIR [Levemir] 60 - 80 unit SQ HS 01/23/17 [History] Acetaminophen [Tylenol] 650 mg PO Q6HR PRN tab 01/30/17 [Rx] Omeprazole [PriLOSEC] 20 mg PO BIDAC #60 cap 01/30/17 [Rx] Allergies Amoxicillin Allergy (Verified 01/22/17 15:39) Hives ondansetron [From Zofran (as hydrochloride)] Adverse Reaction (Verified 15:39) Vomiting Review of Systems All Systems: reviewed and no additional remarkable complaints except as stated Exam - Vital Signs Vital signs: Initial Vital Signs Temp Pulse Resp BP Pulse Ox 98.0 F 94 20 203/90 98 02/01/17 03:23 02/01/17 03:23 02/01/17 03:23 02/01/17 03:23 02/01/17 03:23 Vital Signs - Last 8 Hours Resp BP 02/01/17 08:33 18 184/79 Intake and Output 01/31/17 02/01/17 02/01/17 23:59 07:59 15:59 Intake Total 100 / 100 Balance 100 / 100 Intake: IV Fluids 100 / 100 INVanz 1,000 MG In 0.9 % 100 / 100 Sodium Chloride (Mini-Bag +) 100 ML @ 100 mls/hr IVPB Q24H [facility] Rx#: [id number] Other: Blood Glucose* 187 - General Appearance General appearance: well-developed, well-nourished, appears started age, obese EENT: mucous membranes moist Neck: no JVD Additional Comments: diminished in bases, especially left base. Cardiology: no edema, regular rate, regular rhythm Additional Comments: right BKA, left forefoot amp Gastrointestinal: normoactive bowel sounds, no tenderness Integumentary: warm and dry Neurologic: alert and oriented x3 Psychiatric: mood/affect appropriate, cooperative Results - Lab Results 02/01/17 06:20 02/01/17 06:20 Most recent lab results Calcium 8.6 mg/dL (8.6-10.8) 02/01/17 06:20 Consult Discharge Plan - Plan Referrals: Colt Espinoza MD [Primary Care Provider] -
[2017-02-01] MEDS ORDERED: *HR* HYDROmorphone (PF) 1 MG/ML SYRINGE IVP ONE (12:34)
[2017-02-01] MEDS ORDERED: Naloxone 0.4 MG/ML INJ IVP PRN (12:48)
[2017-02-01] MEDS: Isosorbide MONOnitrate (24 HR) 60 MG TAB.ER.24H PO SCH (12:55)
[2017-02-01] MEDS: Lisinopril 20 MG TABLET PO SCH ×2 (12:55→22:44)
--- NOTE | 2017-02-01 16:50 | Electrocardiograph Report ---
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
[2017-02-01] MEDS: *HR* Heparin 5,000 UNIT/ML VIAL SQ SCH (18:39)
[2017-02-01] MEDS ORDERED: 0.9 % Sodium Chloride 1,000 ML ONE (19:47)
[2017-02-01] MEDS: Venlafaxine XR (24 HR) 37.5 MG CAP.ER.24H PO SCH (22:44)
[2017-02-02] MEDS: *HR* Promethazine 25 MG/ML VIAL IVP PRN ×3 (02:06→16:45)
[2017-02-02 05:56] LABS: Calcium 8.6 mg/dL (8.6-10.8); Potassium 4.7 mEq/L (3.5-4.5)
[2017-02-02] MEDS: *HR* Heparin 5,000 UNIT/ML VIAL SQ SCH ×2 (06:36→17:14)
--- NOTE | 2017-02-02 08:23 | Nephrology Progress Note ---
Date of Encounter: 02/02/17 Time of Encounter: 08:05 - Assessment and Plan (1) ESRD (end stage renal disease) on dialysis Current Visit: No Status: Chronic No HD today, keeping MWF schedule. Subjective Interval history: Laying in bed. States breathing easier but continues to have pain on on inspiration. States Runge not helping. Objective - Vital Signs Vital signs: Vital Signs Temp Pulse Resp BP Pulse Ox 02/02/17 07:39 97.6 F 73 14 200/105 99 02/02/17 03:18 98.2 F 74 18 178/88 97 02/01/17 23:16 98.2 F 87 17 175/74 96 02/01/17 19:35 98.4 F 92 19 181/71 98 02/01/17 18:30 97.8 F 18 184/88 02/01/17 18:00 174/71 02/01/17 17:30 182/90 02/01/17 17:00 162/85 02/01/17 16:30 131/59 02/01/17 16:00 130/60 02/01/17 15:30 176/87 02/01/17 15:00 147/82 02/01/17 14:30 97.2 F L 18 179/98 02/01/17 08:33 18 184/79 Intake and Output 02/01/17 02/02/17 02/02/17 23:59 07:59 15:59 Intake Total 360 / 360 Output Total 4100 / 4100 Balance -3740 / -3740 Intake: Oral 360 / 360 Output: Urine 0 / 0 Total Dialysis (HD) 4100 / 4100 Output Other: Blood Glucose* 264 159 Hemodialysis Net Fluid 3500 Removed (mL) - General Appearance General appearance: Present: well-developed, well-nourished, appears started age EENT: Present: mucous membranes moist Neck: Present: no JVD Respiratory: Present: clear Additional Comments: diminished Cardiology: Present: no edema, regular rate, regular rhythm Additional Comments: right BKA Gastrointestinal: Present: normoactive bowel sounds, no tenderness Integumentary: Present: warm and dry Neurologic: Present: alert and oriented x3 Psychiatric: Present: mood/affect appropriate, cooperative - Lab 02/01/17 06:20 02/02/17 05:20 Most recent lab results Calcium 8.6 mg/dL (8.6-10.8) 02/02/17 05:20 Consult Discharge Plan - Plan Referrals: Colt Espinoza MD [Primary Care Provider] -
[2017-02-02] MEDS ORDERED: Acetaminophen 325 MG TABLET PO PRN (08:34)
[2017-02-02] MEDS ORDERED: Dextrose Gel 15 GM PO PRN ×2 (09:20)
[2017-02-02] MEDS ORDERED: *HR* Dextrose 50 % in Water (Syg) 50 ML SYRINGE IVP PRN (09:20)
[2017-02-02] MEDS ORDERED: D5% in Water 1,000 ML IVC PRN (09:20)
[2017-02-02] MEDS: Lisinopril 20 MG TABLET PO SCH ×2 (09:27→20:36)
[2017-02-02] MEDS: Isosorbide MONOnitrate (24 HR) 60 MG TAB.ER.24H PO SCH (09:27)
[2017-02-02] MEDS: Aspirin 81 MG TAB.CHEW PO SCH (09:28)
--- NOTE | 2017-02-02 09:59 | Internal Med Progress Note ---
<Ashok Bonilla - Last Filed: 02/02/17 16:37> Date of Encounter: 02/02/17 Time of Encounter: 09:54 - Assessment and plan (1) Hypoxia Current Visit: Yes Status: Acute Assessment and plan: Fluid overload from ESRD vs. acute exacerbation of CHF vs. less likely pneumonia. SatO2 99% 4L NC. ct. monitor SatO2. will re-evaluate after dialysis tomorrow. cxr does show rt. sided consolidation vs atelectasis however a chest CT done recently also shows bilateral consolidation most likely atelectasis. ED received Vanc + Levoquin empirically. No fever, leukocytosis. Pain 01/04 - currently on [place]. patient reports it's muscle pain from coughing and causing her significant distress. Effexor XR prescribed. - chest CT pending - cultures pending (2) Hypertensive urgency Current Visit: Yes Status: Acute Assessment and plan: patient did not take her home meds yesterday morning and was not given to her this morning. Have restarted home meds should receive them today. Pain most likely contributing. No end organ involvement at this time. (3) ESRD (end stage renal disease) on dialysis Current Visit: Yes Status: Chronic Assessment and plan: Neph is following. HD MWF. HD tomorrow. (4) Pleural effusion on left Current Visit: Yes Status: Acute Assessment and plan: Current visit: No Status: Acute CXR shows stable effusion on the left. she is s/p chest tube placement on the last admission for pleural effusion, most likely from ESRD. (5) Anemia in chronic kidney disease (CKD) Current Visit: Yes Status: Chronic Assessment and plan: hgb stable 7.6 today. most likely anemia in CKD. continue to closely monitor CBC. renal is follwoing. Qualifiers: Chronic kidney disease stage: on chronic dialysis Qualified Code(s): N18.6 - End stage renal disease; D63.1 - Anemia in chronic kidney disease; Z99.2 - Dependence on renal dialysis (6) Elevated troponin Current Visit: No Status: Acute Assessment and plan: Troponin chronically elevated in the setting of ESRD. Troponin today 0.07, possible troponin leak from hypertensive urgency and ESRD. Less likely ACS at this time. - Subjective Interval history: 36 yo F on Day of admission. Admitted due to SOB with recent D/C on saturday with chest tube placement, ESRD HD MWF, HTN, T2DM, CHF, BKA, stent 04/2016, DVT. Patient woke up in the middle of the night unable to catch her breath. she reports recent increase of SOB on exertion, inability to lay flat, recent increase in # of pillows she uses to sleep wiht now 4, and a recent increase in peripheral edema in her arms and legs. She continues to have c/o non- productive cough, and 20 pack year history which she stopped in 2015. denies f/ CP/COSTELLO/Abd pain/N/V/Diaphoresis/wt gain. She does report significant amount of muscle pain from all the coughing 01/04. Home dose of norco not controlling her pain. - Constitutional Vitals: Temp Pulse Resp BP Pulse Ox 97.6 F 73 14 200/105 99 02/02/17 07:39 02/02/17 07:39 02/02/17 07:39 02/02/17 07:39 02/02/17 07:39 General appearance: Present: cooperative, mild distress, A&O X 3, answers questions appropriately - Head Head exam: Present: atraumatic, normocephalic - Respiratory Respiratory exam: Present: decreased breath sounds, respiratory distress, wheezes - Cardiovascular Cardiovascular exam: Present: distant heart sounds - GI/Abdominal GI/Abdominal exam: Present: normal bowel sounds, soft, no peritoneal signs. Absent: distended, tenderness - Neurological Exam Neurological exam: Present: oriented X3 Internal Medicine: Result - Labs CBC & Chem 7: 02/01/17 06:20 02/02/17 05:20 Labs: BMP 02/02/17 05:20 Sodium 134 L Potassium 4.7 H Chloride 99 Carbon Dioxide 24 BUN 44 H D Creatinine 5.56 H Glucose 174 H Calcium 8.6 Consult Discharge Plan - Plan Referrals: Colt Espinoza MD [Primary Care Provider] - <Jim Barbosa - Last Filed: 02/02/17 16:50> Date of Encounter: 02/02/17 - Constitutional Vitals: Temp Pulse Resp BP Pulse Ox 97.6 F 74 17 180/95 97 02/02/17 11:14 02/02/17 11:14 02/02/17 11:14 02/02/17 11:14 02/02/17 11:14 Internal Medicine: Result - Labs CBC & Chem 7: 02/01/17 06:20 02/02/17 05:20 - Impressions Impressions Chest CT 02/02/17 15:00 IMPRESSION: Pulmonary edema with moderate left and small right pleural effusions. There is slightly more focal consolidation within the left lung which may be related to atelectasis versus superimposed pneumonia. Mild mediastinal adenopathy, slightly increased compared to prior. D/ / Misty Ceballos MD / Misty Ceballos MD Interpreting Provider: Misty Ceballos MD - Attending Attestation I examined this patient and my medical decision-making was reviewed with the Resident Physician on 02/02/17. I agree with the documented findings, disposition and treatment plan as described except to the extent set forth below. 36 F, recently discharged after chest tube placement for large pleural efffusion , chronic hypoxic failure on home O2 Represented with shortness of breath and cough productive of whitish phlegm CXR on admission with no new changes, suspected pneumonia Chest CT done today shows possibly increasing consolidation, pulmonary edema, bilateral pleural effusion Patient is afebrile, and reports her cough is not worse Her BP has been uncontrolled, her home medications have been resumed She is hemodynamically stable Procalcitonin was sent by admitting team, takes a while to come back HB is stable Will add sputum culture Patient is on 3L O2 at home and is requiring same inpatient Physical Exam; VSS, R BKA, L TMA, no edema, no evidence of fluid overload, Continue HD, renal is following, no indications for antibiotics at this time, her SOB can be explained by her pulmonary edema Continue to monitor closely
[2017-02-02] MEDS: Insulin LISPRO 300 UNITS/3 ML VIAL SQ SCH ×3 (11:55→20:28)
[2017-02-02] MEDS ORDERED: *HR* HYDROcodone/Acet 10/325 mg TABLET PO PRN (13:11)
[2017-02-02] MEDS: hydrALAZINE 25 MG TABLET PO SCH ×2 (17:10→23:45)
[2017-02-02] MEDS: Venlafaxine XR (24 HR) 37.5 MG CAP.ER.24H PO SCH (20:36)
[2017-02-03] MEDS: *HR* Promethazine 25 MG/ML VIAL IVP PRN ×3 (04:05→17:37)
[2017-02-03] MEDS: *HR* Heparin 5,000 UNIT/ML VIAL SQ SCH ×2 (06:01→21:01)
[2017-02-03 06:52] LABS: Hematocrit 22.3 % (35.3-44.9); Hemoglobin 6.7 g/dL (11.5-15.4); Mean Corpuscular Hemoglobin 27.5 pg (28.0-33.3); Mean Corpuscular Volume 91.4 fL (83.0-100.0); Platelet Count 212 K/mcL (140-400); Red Blood Count 2.44 M/mcL (3.82-4.97)
[2017-02-03 06:58] LABS: Calcium 8.7 mg/dL (8.6-10.8); Potassium 5.5 mEq/L (3.5-4.5)
[2017-02-03] MEDS: Aspirin 81 MG TAB.CHEW PO SCH (07:43)
[2017-02-03] MEDS: hydrALAZINE 25 MG TABLET PO SCH ×2 (07:44→16:51)
[2017-02-03] MEDS: Lisinopril 20 MG TABLET PO SCH ×2 (07:44→21:00)
[2017-02-03] MEDS: Isosorbide MONOnitrate (24 HR) 60 MG TAB.ER.24H PO SCH (07:44)
[2017-02-03] MEDS: Insulin LISPRO 300 UNITS/3 ML VIAL SQ SCH ×4 (07:45→22:44)
--- NOTE | 2017-02-03 08:47 | Nephrology Progress Note ---
Date of Encounter: 02/03/17 Time of Encounter: 08:35 - Assessment and Plan (1) ESRD (end stage renal disease) on dialysis Current Visit: No Status: Chronic HD today, keeping MWF schedule. Orders given. Will give two units PRBC for Hgb 6.7. BP elevated. Increased Amlodipine 10mg BID. Subjective Interval history: Laying in bed. States breathing easier but continues to have pain on on inspiration. Denies emesis today. Objective - Vital Signs Vital signs: Vital Signs Temp Pulse Resp BP Pulse Ox 02/03/17 06:55 97.8 F 75 20 207/98 99 02/03/17 03:56 97.8 F 80 16 192/76 98 02/02/17 23:48 78 185/71 02/02/17 19:07 97.6 F 78 17 191/68 97 02/02/17 17:07 97.8 F 80 16 213/82 94 Intake and Output 02/02/17 02/03/17 02/03/17 23:59 07:59 15:59 Other: Weight 86.2 kg Blood Glucose* 124 201 Patient Weight 02/03/17 23:59 Weight 86.2 kg - General Appearance General appearance: Present: well-developed, well-nourished, appears started age , obese EENT: Present: mucous membranes moist Neck: Present: no JVD Respiratory: Present: clear Additional Comments: diminished Cardiology: Present: no edema, regular rate, regular rhythm Additional Comments: right BKA Gastrointestinal: Present: normoactive bowel sounds, no tenderness Integumentary: Present: warm and dry Neurologic: Present: alert and oriented x3 Psychiatric: Present: mood/affect appropriate, cooperative - Lab 02/03/17 05:49 02/03/17 05:49 Most recent lab results Calcium 8.7 mg/dL (8.6-10.8) 02/03/17 05:49 Consult Discharge Plan - Plan Referrals: Colt Espinoza MD [Primary Care Provider] -
[2017-02-03] MEDS ORDERED: 0.9 % Sodium Chloride 1,000 ML PRIME SCH (09:00)
[2017-02-03] MEDS ORDERED: 0.9 % Sodium Chloride 250 ML IVC PRN (09:00)
[2017-02-03] MEDS ORDERED: amLODIPine 5 MG TABLET PO SCH (09:00)
[2017-02-03] MEDS ORDERED: *HR* Heparin 10,000 UNIT/10 ML VIAL IV PRN (09:00)
[2017-02-03] MEDS ORDERED: 0.9 % Sodium Chloride 1,000 ML ONE (09:30)
[2017-02-03] MEDS: amLODIPine 5 MG TABLET PO SCH ×2 (10:02→22:44)
--- NOTE | 2017-02-03 10:47 | Internal Med Progress Note ---
<Ashok Bonilla - Last Filed: 02/03/17 13:48> Date of Encounter: 02/03/17 Time of Encounter: 10:44 - Assessment and plan (1) Hypoxia Current Visit: Yes Status: Acute Assessment and plan: Fluid overload from ESRD vs. acute exacerbation of CHF vs. less likely pneumonia. SatO2 99% 4L NC. ct. monitor SatO2. cxr does show rt. sided consolidation vs atelectasis however a chest CT done recently also shows bilateral consolidation most likely atelectasis. ED received Vanc + Levoquin empirically. No fever, leukocytosis. Pain 01/04 - currently on [place]. patient reports it's muscle pain from coughing and causing her significant distress. (2) Hypertensive urgency Current Visit: Yes Status: Acute Assessment and plan: Have restarted home meds should receive them today. Pain most likely contributing. No end organ involvement at this time. closely monitor BP and will reevaluate after HD. (3) ESRD (end stage renal disease) on dialysis Current Visit: Yes Status: Chronic Assessment and plan: Neph is following. HD MWF. HD today. (4) Pleural effusion on left Current Visit: Yes Status: Acute Assessment and plan: Current visit: No Status: Acute CXR shows stable effusion on the left. she is s/p chest tube placement on the last admission for pleural effusion, most likely from ESRD. (5) Anemia in chronic kidney disease (CKD) Current Visit: Yes Status: Chronic Assessment and plan: hgb downtrending 6.7 today. most likely anemia in CKD. continue to closely monitor CBC. renal is follwoing. will receive 2 units prbc during dialysis today. Qualifiers: Chronic kidney disease stage: on chronic dialysis Qualified Code(s): N18.6 - End stage renal disease; D63.1 - Anemia in chronic kidney disease; Z99.2 - Dependence on renal dialysis (6) Elevated troponin Current Visit: No Status: Acute Assessment and plan: Troponin chronically elevated in the setting of ESRD. Troponin today 0.07, possible troponin leak from hypertensive urgency and ESRD. Less likely ACS at this time. - Subjective Interval history: 36 yo F on Day of admission. Admitted due to SOB with recent D/C on wednesday with chest tube placement, ESRD HD MWF, HTN, T2DM, CHF, BKA, stent 04/2016, DVT. Patient woke up in the middle of the night unable to catch her breath. she reports recent increase of SOB on exertion, inability to lay flat, recent increase in # of pillows she uses to sleep wiht now 4, and a recent increase in peripheral edema in her arms and legs. She continues to have c/o non- productive cough, and 20 pack year history which she stopped in 2016. denies f/ CP/COSTELLO/Abd pain/N/V/Diaphoresis/wt gain. She does report significant amount of muscle pain from all the coughing 01/04. Home dose of norco not controlling her pain and flexoril didn't help. she reports her breathing has improved today but still has significant back and rib cage pain/soreness. - Constitutional Vitals: Temp Pulse Resp BP Pulse Ox 97.8 F 75 20 172/91 99 02/03/17 06:55 02/03/17 06:55 02/03/17 06:55 02/03/17 09:24 02/03/17 06:55 General appearance: Present: cooperative, mild distress, A&O X 3, answers questions appropriately - Head Head exam: Present: atraumatic, normocephalic - Respiratory Respiratory exam: Present: CTAB. Absent: accessory muscle use, rales, rhonchi, wheezes - Cardiovascular Cardiovascular exam: Present: RRR, +S1, +S2. Absent: diastolic murmur, gallop, rubs, systolic murmur - GI/Abdominal GI/Abdominal exam: Present: normal bowel sounds, soft, no peritoneal signs. Absent: distended, tenderness Internal Medicine: Result - Labs CBC & Chem 7: 02/03/17 05:49 02/03/17 05:49 Labs: Short CBC 02/03/17 Range/Units 05:49 WBC 5.0 (4.3-11.1) K/mcL Hgb 6.7 L (11.5-15.4) g/dL Hct 22.3 L (35.3-44.9) % Plt Count 212 (140-400) K/mcL BMP 02/03/17 05:49 Sodium 135 L Potassium 5.5 H Chloride 98 Carbon Dioxide 22 BUN 62 H D Creatinine 7.34 H Glucose 187 H Calcium 8.7 - Impressions Impressions Chest CT 02/02/17 15:00 IMPRESSION: Pulmonary edema with moderate left and small right pleural effusions. There is slightly more focal consolidation within the left lung which may be related to atelectasis versus superimposed pneumonia. Mild mediastinal adenopathy, slightly increased compared to prior. D/ / Misty Ceballos MD / Misty Ceballos MD Interpreting Provider: Misty Ceballos MD Consult Discharge Plan - Plan Referrals: Colt Espinoza MD [Primary Care Provider] - (Patient need to call for an appointment) <Jim Barbosa T - Last Filed: 02/03/17 16:18> Date of Encounter: 02/03/17 - Constitutional Vitals: Temp Pulse Resp BP Pulse Ox 97.6 F 81 18 164/75 97 02/03/17 14:34 02/03/17 14:34 02/03/17 14:34 02/03/17 14:34 02/03/17 12:14 Internal Medicine: Result - Labs CBC & Chem 7: 02/03/17 05:49 02/03/17 05:49 Labs: Short CBC 02/03/17 Range/Units 05:49 WBC 5.0 (4.3-11.1) K/mcL Hgb 6.7 L (11.5-15.4) g/dL Hct 22.3 L (35.3-44.9) % Plt Count 212 (140-400) K/mcL BMP 02/03/17 05:49 Sodium 135 L Potassium 5.5 H Chloride 98 Carbon Dioxide 22 BUN 62 H D Creatinine 7.34 H Glucose 187 H Calcium 8.7 - Attending Attestation I examined this patient and my medical decision-making was reviewed with the Resident Physician on 02/03/17. I agree with the documented findings, disposition and treatment plan as described except to the extent set forth below. 36 F, recently discharged after chest tube placement for large pleural efffusion , chronic hypoxic failure on home O2 Represented with shortness of breath and cough productive of whitish phlegm CXR on admission with no new changes, suspected pneumonia Chest CT done 02/02 shows possibly increasing consolidation, pulmonary edema, bilateral pleural effusion Patient remains afebrile, and reports her cough is not worse Her O2 saturation has been acceptable with her home dose oxygen She is seen this morning sleeping soundly but rousable Denies new complains States "I just want to rest" Physical Exam; VSS, R BKA, L TMA, no edema, no evidence of fluid overload, Labs and imagign reviewed: Acute on chronic anemia, Chem at baseline Transfuse 2 units with HD, Continue HD, renal is following, no indications for antibiotics at this time, her SOB can be explained by her pulmonary edema Continue to monitor closely Anticipate d/c a.m Rest of details as in resident physician's documentation
[2017-02-03] MEDS: Venlafaxine XR (24 HR) 37.5 MG CAP.ER.24H PO SCH (21:00)
[2017-02-04] MEDS: hydrALAZINE 25 MG TABLET PO SCH ×2 (01:01→08:05)
[2017-02-04] MEDS: *HR* Promethazine 25 MG/ML VIAL IVP PRN ×3 (01:01→16:16)
[2017-02-04 05:48] LABS: Mean Corpuscular HGB Conc 32.2 g/dL (31.6-35.5); Mean Corpuscular Hemoglobin 28.4 pg (28.0-33.3); Mean Corpuscular Volume 88.2 fL (83.0-100.0); Mean Platelet Volume 10.4 fL (9.4-12.4); Platelet Count 214 K/mcL (140-400); Red Blood Count 3.06 M/mcL (3.82-4.97); Red Cell Distribution Width 16.1 % (11.5-14.5)
[2017-02-04 05:50] LABS: Hemoglobin 8.7 g/dL (11.5-15.4)
[2017-02-04 06:10] LABS: Calcium 8.6 mg/dL (8.6-10.8)
[2017-02-04 06:14] LABS: Potassium 4.6 mEq/L (3.5-4.5)
[2017-02-04] MEDS: *HR* Heparin 5,000 UNIT/ML VIAL SQ SCH (06:43)
[2017-02-04] MEDS: Lisinopril 20 MG TABLET PO SCH (08:05)
[2017-02-04] MEDS: amLODIPine 5 MG TABLET PO SCH (08:05)
[2017-02-04] MEDS: Aspirin 81 MG TAB.CHEW PO SCH (08:06)
[2017-02-04] MEDS: Isosorbide MONOnitrate (24 HR) 60 MG TAB.ER.24H PO SCH (08:06)
[2017-02-04] MEDS: Insulin LISPRO 300 UNITS/3 ML VIAL SQ SCH ×2 (08:07→12:09)
--- NOTE | 2017-02-04 09:17 | Discharge Summary ---
<Ashok Bonilla - Last Filed: 02/04/17 18:01> Date of Encounter: 02/04/17 Time of Encounter: 09:10 - Discharge Diagnosis (1) Hypoxia Priority: Primary Status: Resolved (2) Hypertensive urgency Priority: Secondary Status: Acute (3) ESRD (end stage renal disease) on dialysis Priority: Secondary Status: Chronic (4) Pleural effusion on left Priority: Secondary Status: Acute (5) Anemia in chronic kidney disease (CKD) Priority: Secondary Status: Chronic Qualifiers: Chronic kidney disease stage: on chronic dialysis Qualified Code(s): N18.6 - End stage renal disease; D63.1 - Anemia in chronic kidney disease; Z99.2 - Dependence on renal dialysis (6) Elevated troponin Priority: Secondary Status: Acute - Discharge Medications Home Medications: Aspirin 81 mg PO DAILY #30 tab.chew 12/22/15 [Rx] HYDROcodone/Acet 10/325 mg [[place] 10-325 mg] 1 tab PO QID PRN 01/21/16 [History] Venlafaxine XR (24 HR) [Effexor XR] 37.5 mg PO HS 04/20/16 [History] Insulin ASPART [NovoLOG] 5 - 10 unit SQ TIDWM 04/21/16 [History] Clopidogrel [Plavix] 75 mg PO DAILY tablet 04/23/16 [Rx] Atorvastatin [Lipitor] 40 mg PO DAILY 08/12/16 [History] Isosorbide MONOnitrate (24 HR) [Imdur] 120 mg PO DAILY #60 tab.er.24h 11/13/16 [ Rx] Lisinopril [Zestril] 20 mg PO BID 60 Days 11/13/16 [Rx] Carvedilol [Coreg] 25 mg PO BIDWM 01/23/17 [History] CloNIDine Patch [Catapres-Tts] 0.2 mg TD QWEEK 01/23/17 [History] Insulin DETEMIR [Levemir] 60 - 80 unit SQ HS 01/23/17 [History] Acetaminophen [Tylenol] 650 mg PO Q6HR PRN tab 01/30/17 [Rx] Omeprazole [PriLOSEC] 20 mg PO BIDAC #60 cap 01/30/17 [Rx] amLODIPine [Norvasc] 10 mg PO DAILY 02/02/17 [History] cloNIDine HCl [CloNIDine HCl] 0.1 mg PO BID 02/02/17 [History] hydrALAZINE [HydrALAZINE] 50 mg PO Q8HR 02/02/17 [History] Allergies/Adverse Reactions: Allergies Amoxicillin Allergy (Verified 01/22/17 15:39) Hives ondansetron [From Zofran (as hydrochloride)] Adverse Reaction (Verified 15:39) Vomiting Date of admission: 02/02/17 14:54 Primary care physician: Colt Espinoza MD Consults: 02/03/17 09:00 Consult to Dialysis [CONS] ONCE 02/04/17 09:00 Consult to Dialysis [CONS] ONCE - Patient Status Disposition: Home, Self-Care Condition: Fair Functional capacity at discharge: wheelchair bound - Discharge Instructions Instructions: Diabetes Mellitus Type 2 in Adults (DC), Chronic Hypertension (DC ) Follow Up With: Colt Espinoza MD [Primary Care Provider] - 02/12/17 10:00 am () Hospital course: Ms. Benavidez is a 36 year old female with history of ESRD HD on MWF, hypertension , diabetes, congestive heart failure presents to the ED for difficulty breathing. Patient was recently discharged, was treated for pleural effusion status post chest tube placement most likely from ESRD. In the ED her blood pressure was as high as 200/134. In the emergency department she recieved IV vancomycin and levoquin due to possible concern of HCAP, CXR which showed right sided atelectasis or pneumonia. Patient was admitted and complained of having a lot of chest and back pain from the coughing. Due to concerns of HTN, ESRD, and breathing complications patient was started on effexor which patient reported only made her tired. Patient remained feverless, and without an elevation of WBC. HD was given MWF. CT chest showed mild mediastinal adenopathy, slightly increased to prior. - Time Spent with Patient Total time spent providing and/or coordinating discharge services: - Constitutional Vitals: Temp Pulse Resp BP Pulse Ox 98.2 F 75 16 156/70 93 02/04/17 07:48 02/04/17 07:48 02/04/17 07:48 02/04/17 07:48 02/04/17 07:48 General appearance: Present: cooperative, mild distress, A&O X 3, answers questions appropriately - Head Head exam: Present: atraumatic, normocephalic - Respiratory Respiratory exam: Present: CTAB. Absent: accessory muscle use, rales, rhonchi, wheezes - Cardiovascular Cardiovascular exam: Present: RRR, +S1, +S2. Absent: diastolic murmur, gallop, rubs, systolic murmur - GI/Abdominal GI/Abdominal exam: Present: normal bowel sounds, soft, no peritoneal signs. Absent: distended, tenderness - Neurological Exam Neurological exam: Present: alert, oriented X3 - Psychiatric Psychiatric exam: Present: normal affect, normal mood <ChelseyJim T - Last Filed: 02/05/17 07:37> Date of Encounter: 02/05/17 Date of admission: 02/02/17 14:54 Primary care physician: Colt Espinoza MD Consults: 02/03/17 09:00 Consult to Dialysis [CONS] ONCE 02/04/17 09:00 Consult to Dialysis [CONS] ONCE Hospital course: Ms. Benavidez is a 36 year old female - Time Spent with Patient Total time spent providing and/or coordinating discharge services: - Constitutional Vitals: Temp Pulse Resp BP Pulse Ox 97.8 F 73 18 113/58 96 02/04/17 11:26 02/04/17 11:26 02/04/17 11:26 02/04/17 11:26 02/04/17 11:26 - Attending Attestation I examined this patient and my medical decision-making was reviewed with the Resident Physician on 02/04/17. I agree with the documented findings, disposition and treatment plan as described except to the extent set forth below. 36 F, admitted and managed for acute on chronic hypoxia secondary to pulmonary edema, and hypertensive urgency She has made significant improvement Physical Exam; VSS, R BKA, L TMA, no edema, no evidence of fluid overload, Labs and imaging reviewed: Acute on chronic anemia, Chem at baseline Stable for discharge Rest as in resident physician's documentation
--- NOTE | 2017-02-04 09:47 | Physician Discharge Referral ---
Home Health/Hosp Referral Info Transfer to: Home Health Provider in Charge Post Discharge: PCP - Diagnosis (1) Hypoxia Priority: Primary Status: Resolved (2) Hypertensive urgency Priority: Secondary Status: Acute (3) ESRD (end stage renal disease) on dialysis Priority: Secondary Status: Chronic (4) Pleural effusion on left Priority: Secondary Status: Acute (5) Anemia in chronic kidney disease (CKD) Priority: Secondary Status: Chronic (6) Elevated troponin Priority: Secondary Status: Acute - Respiratory Orders Smoking Cessation: Smoking cessation has been advised. For more information, call the [place] Tobacco Quit Line at 6-347-QHKD-NOW. - Diet/Nutrition Diet/Nutrition: List: follow diabetic diet - Services Needed Following services are medically necessary services: Home Health Aide, Physical Therapy, Occupational Therapy - Transfer Medications Home Medications: Aspirin 81 mg PO DAILY #30 tab.chew 12/22/15 [Rx] HYDROcodone/Acet 10/325 mg [[place] 10-325 mg] 1 tab PO QID PRN 01/21/16 [History] Venlafaxine XR (24 HR) [Effexor XR] 37.5 mg PO HS 04/20/16 [History] Insulin ASPART [NovoLOG] 5 - 10 unit SQ TIDWM 04/21/16 [History] Clopidogrel [Plavix] 75 mg PO DAILY tablet 04/23/16 [Rx] Atorvastatin [Lipitor] 40 mg PO DAILY 08/12/16 [History] Isosorbide MONOnitrate (24 HR) [Imdur] 120 mg PO DAILY #60 tab.er.24h 11/13/16 [ Rx] Lisinopril [Zestril] 20 mg PO BID 60 Days 11/13/16 [Rx] Carvedilol [Coreg] 25 mg PO BIDWM 01/23/17 [History] CloNIDine Patch [Catapres-Tts] 0.2 mg TD QWEEK 01/23/17 [History] Insulin DETEMIR [Levemir] 60 - 80 unit SQ HS 01/23/17 [History] Acetaminophen [Tylenol] 650 mg PO Q6HR PRN tab 01/30/17 [Rx] Omeprazole [PriLOSEC] 20 mg PO BIDAC #60 cap 01/30/17 [Rx] amLODIPine [Norvasc] 10 mg PO DAILY 02/02/17 [History] cloNIDine HCl [CloNIDine HCl] 0.1 mg PO BID 02/02/17 [History] hydrALAZINE [HydrALAZINE] 50 mg PO Q8HR 02/02/17 [History] Allergies/Adverse Reactions: Allergies Amoxicillin Allergy (Verified 01/22/17 15:39) Hives ondansetron [From Zofran (as hydrochloride)] Adverse Reaction (Verified 15:39) Vomiting Certification: Further, I certify that my clinical findings support that this patient is homebound (i.e. absences from home require considerable and taxing effort and are for medical reasons or anabaptism services or infrequently or short duration when for other reasons) because: Homebound Reason: Patient requires assistance of a person or device to safely leave home Attestation: My signature below is to certify that this patient is under my care and that I, or nurse practitioner, or a physician's sales assistant working with me, has a face-to -face encounter with this patient.
--- NOTE | 2017-02-04 10:11 | Nephrology Progress Note ---
Date of Encounter: 02/04/17 Time of Encounter: 09:30 - Assessment and Plan (1) ESRD (end stage renal disease) on dialysis Current Visit: No Status: Chronic No HD today, keeping MWF schedule. Hgb 8.7 following 2 units PRBC's yesterday. Increased Amlodipine 10mg BID yesterday, BP improved. Subjective Interval history: Laying in bed. States breathing easier but continues to have pain on on inspiration. States going home today. Objective - Vital Signs Vital signs: Vital Signs Temp Pulse Resp BP Pulse Ox 02/04/17 07:48 98.2 F 75 16 156/70 93 02/04/17 05:25 98.2 F 75 16 156/84 96 02/04/17 00:00 98.8 F 80 16 169/81 96 02/03/17 21:03 98 02/03/17 19:35 98.3 F 82 16 120/62 98 02/03/17 17:07 97.7 F 83 16 172/89 97 02/03/17 16:15 97.5 F L 18 138/70 02/03/17 15:50 160/78 02/03/17 15:35 160/78 02/03/17 15:20 162/79 02/03/17 15:05 166/94 02/03/17 14:50 154/82 02/03/17 14:35 143/83 02/03/17 14:34 97.6 F 81 18 164/75 02/03/17 14:20 97.6 F 85 18 158/70 02/03/17 14:05 97.6 F 78 18 141/80 02/03/17 13:50 155/79 02/03/17 13:35 97 F L 80 18 159/74 02/03/17 13:25 97.4 F L 79 20 152/76 02/03/17 13:20 165/75 02/03/17 13:10 97.1 F L 77 19 135/70 02/03/17 13:05 136/64 02/03/17 12:50 137/67 02/03/17 12:35 125/44 02/03/17 12:20 97 F L 18 123/41 02/03/17 12:14 97.7 F 75 16 158/79 97 Intake and Output 02/03/17 02/04/17 02/04/17 23:59 07:59 15:59 Intake Total 100 / 100 240 / 240 Output Total 4800 / 4800 Balance -4700 / -4700 240 / 240 Intake: Oral 100 / 100 240 / 240 Output: Urine 0 / 0 Total Dialysis (HD) 4800 / 4800 Output Other: Meal Dinner Breakfast Percent of Meal Consumed 90% 100% Weight 98 kg Blood Glucose* 170 178 Hemodialysis Net Fluid 3500 Removed (mL) Patient Weight 02/04/17 23:59 Weight 98 kg - General Appearance General appearance: Present: well-developed, well-nourished, appears started age EENT: Present: mucous membranes moist Neck: Present: no JVD Respiratory: Present: clear Additional Comments: diminished Cardiology: Present: no edema, regular rate, regular rhythm Gastrointestinal: Present: normoactive bowel sounds, no tenderness Integumentary: Present: warm and dry Neurologic: Present: alert and oriented x3 Psychiatric: Present: mood/affect appropriate, cooperative - Lab 02/04/17 05:13 02/04/17 05:13 Most recent lab results Calcium 8.6 mg/dL (8.6-10.8) 02/04/17 05:13 Consult Discharge Plan - Plan Instructions: Diabetes Mellitus Type 2 in Adults (DC), Chronic Hypertension (DC ) Referrals: Colt Espinoza MD [Primary Care Provider] - 02/12/17 10:00 am ()
[2017-02-04 11:30] VITALS: BP 113/58
== END 2017-02-04 17:18 | disposition home or self-care (01) | DRG 291 ==
LOC: EMEROO 03:22 → 2ANU 03:22 → SUATTDRO 02-02 14:54
PROVIDERS: ADMIT Internal Medicine Endocrinology, Diabetes & Metabolism; ATTEND Internal Medicine

== ENCOUNTER 2017-04-06 12:27 | Inpatient (IN) ==
[2017-04-06] MEDS ORDERED: *HR* Promethazine 25 MG/ML VIAL IVP ONE ×2 (12:55→16:17)
[2017-04-06] MEDS ORDERED: 0.9 % Sodium Chloride 500 ML IVC ONE (12:55)
[2017-04-06] MEDS ORDERED: *HR* Morphine 2 MG/ML SYRINGE IVP ONE (13:02)
[2017-04-06] MEDS ORDERED: *HR* HYDROmorphone (PF) 1 MG/ML SYRINGE IVP ONE ×2 (13:45→16:03)
[2017-04-06 14:25] LABS: Basophils % 0.7 %; Eosinophils # 0.3 K/mcL (0.0-0.6); Eosinophils % 5.6 %; Hematocrit 27.8 % (35.3-44.9); Hemoglobin 8.8 g/dL (11.5-15.4); Immature Granulocytes % 0.7 % (0-4); Immature Platelets 4.7 % (1.1-6.1); Lymphocytes # 0.5 K/mcL (0.6-4.6); Lymphocytes % 11.4 %; Mean Corpuscular HGB Conc 31.7 g/dL (31.6-35.5); Mean Corpuscular Hemoglobin 27.8 pg (28.0-33.3); Mean Corpuscular Volume 87.7 fL (83.0-100.0); Mean Platelet Volume 11.2 fL (9.4-12.4); Monocytes # 0.3 K/mcL (0.0-1.3); Monocytes % 7.2 %; Neutrophils # 3.3 K/mcL (1.6-8.9); Platelet Count 200 K/mcL (140-400); Red Blood Count 3.17 M/mcL (3.82-4.97); Red Cell Distribution Width 15.3 % (11.5-14.5); Segmented Neutrophils % 74.4 %
[2017-04-06 14:30] LABS: VBG HCO3 22 mEq/L (21-27); VBG PCO2 30 mmHg (41-51); VBG PH 7.47 pH Units (7.32-7.42); VBG PO2 155 mmHg (25-50)
[2017-04-06 14:33] LABS: Beta-Hydroxybutyric Acid 0.21 mmol/L (0.02-0.27)
[2017-04-06 14:37] LABS: Calcium 9.1 mg/dL (8.6-10.8); Magnesium 1.9 mg/dL (1.6-2.6); Phosphorous 6.3 mg/dL (2.3-4.7); Potassium 4.7 mEq/L (3.5-4.5)
--- NOTE | 2017-04-06 15:18 | Emergency Department Note ---
Disposition Clinical Impression: Dehydration, ESRD (end stage renal disease) Intractable nausea and vomiting Qualifiers: Vomiting type: unspecified Qualified Code(s): R11.2 - Nausea with vomiting, unspecified Type 1 diabetes mellitus Qualifiers: Diabetes mellitus complication status: with unspecified complications Qualified Code(s): E10.8 - Type 1 diabetes mellitus with unspecified complications HTN (hypertension) Qualifiers: Hypertension type: essential hypertension Qualified Code(s): I10 - Essential ( primary) hypertension Disposition: Admitted As Inpatient Condition: Fair Referrals: Colt Espinoza MD [Primary Care Provider] - Time of Disposition: 16:29 Nausea/Vomiting/Diarrhea HPI - General Chief complaint: ED Nausea/Vomiting/Diarrhea Stated complaint: N/V Time Seen by Provider: 04/06/17 12:29 Source: patient, EMS Mode of arrival: EMS Limitations: no limitations Nursing Notes Reviewed: Yes Vital Signs Reviewed: Yes - History of Present Illness HPI Narrative: Patient presents from dialysis clinic for evaluation of nausea vomiting and abdominal pain. She says that she has been compliant with her dialysis treatments at this time. Patient follows up with Dr. Witt. Denies any other issues complaints or symptoms. Patient denies chest pain shortness of breath headaches vision changes fevers or chills. She has persistent nausea vomiting and diarrhea. Patient does not make any urine at this time. She also has abdominal pain. 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 Abdominal Pain: Yes If pain, Location of pain: diffuse Radiation: diffuse Severity: moderate Severity scale (1-10): 5 Quality: aching Worsens with: nonthing Associated symptoms: Reports: denies other symptoms - Related Data Home Medications Medication Instructions Recorded Confirmed HYDROcodone/Acet 10/325 mg [[place] 1 tab PO QID PRN 01/21/16 04/06/17 10-325 mg] Venlafaxine XR (24 HR) [Effexor XR] 37.5 mg PO HS 04/20/16 04/06/17 Insulin ASPART [NovoLOG] 5 - 10 unit SQ TIDWM 04/21/16 04/06/17 Carvedilol [Coreg] 25 mg PO BIDWM 01/23/17 04/06/17 CloNIDine Patch [Catapres-Tts] 0.2 mg TD QWEEK 01/23/17 04/06/17 Insulin DETEMIR [Levemir] 60 - 80 unit SQ HS 01/23/17 04/06/17 Colesevelam HCl [Welchol] 625 mg PO TID 04/06/17 04/06/17 Previous Rx's Medication Instructions Recorded Aspirin 81 mg PO DAILY #30 tab.chew 12/22/15 Clopidogrel [Plavix] 75 mg PO DAILY tablet 04/23/16 Lisinopril [Zestril] 20 mg PO BID 60 Days tablet 11/13/16 Acetaminophen [Tylenol] 650 mg PO Q6HR PRN tab 01/30/17 Omeprazole [PriLOSEC] 20 mg PO BIDAC #60 cap 01/30/17 Allergies Allergy/AdvReac Type Severity Reaction Status Date / Time Amoxicillin Allergy Hives Verified 04/06/17 16:20 metoclopramide [From Reglan] AdvReac Shakiness Verified 04/06/17 16:20 ondansetron AdvReac Vomiting Verified 04/06/17 16:20 [From Zofran (as hydrochloride)] All systems ED: reviewed and negative except as stated. Review of Systems: As Per HPI Constitutional: Denies: fever, chills, weakness Cardiovascular: Denies: chest pain, palpitations, dyspnea on exertion, orthopnea Respiratory: Denies: cough, dyspnea, wheezes, hemoptysis Gastrointestinal: Reports: abdominal pain, nausea, vomiting. Denies: diarrhea, constipation Genitourinary: Denies: urgency, dysuria Musculoskeletal: Denies: back pain, neck pain Neurological: Denies: headache Endocrine: Denies: fatigue Past Medical History - Past Medical History Attestation: Yes The following information was validated with the patient. Source: patient Medical history: Reports: coronary artery disease, diabetes, dialysis, hypertension, renal disease Surgical history: Reports: angioplasty/stent, hip replacement, hysterectomy, other Psychiatric history: Reports: anxiety, depression DESIGNER/WRITER history: Reports: no DESIGNER/WRITER history, other - Social History Smoking Status: Former smoker Smokeless Tobacco Status: No Alcohol use: Reports: none Drug use: Reports: none Physical Exam - General Limitations: no limitations General appearance: alert, anxious - ENT ENT exam: normal exam, normal oropharynx, mucous membranes moist - Neck Neck exam: Present: normal inspection, full ROM, trachea midline - Chest Chest inspection: Present: normal inspection, symmetric chest wall rise - Respiratory Respiratory exam: Present: normal lung sounds bilaterally. Absent: respiratory distress, wheezes - Cardiovascular Cardiovascular exam: Present: regular rate, normal rhythm, normal heart sounds - Abdominal Exam Abdominal exam: Present: soft, tenderness, normal bowel sounds. Absent: distention, guarding, rebound, rigidity, Nava's sign, Rovsing's sign, tenderness at McBurney's Point - Extremities Exam Extremities exam: Present: normal inspection, full ROM, normal capillary refill. Absent: tenderness - Back Exam Back exam: Present: normal inspection, full ROM. Absent: tenderness - Neurological Exam Neurological exam: Present: alert, oriented X3, CN II-XII intact, normal gait - Skin Skin exam: Present: warm, dry, intact, normal color Course Course Narrative: Patient seen and examined the time of arrival. See history of present illness. Chronically debilitated 36-year-old female with known end-stage renal disease presents to emergency room with complaint of persistent nausea, vomiting, abdominal pain. She has had these issues multiple times in the past. She has been seen and evaluated and treated for this several times prior. She is currently a Wednesday dialysis patient. She denies any recent injuries fevers chills chest pain shortness of breath headache or vision change. Her main complaint is persistent nausea and vomiting. She is also poorly controlled diabetic. Accu-Chek in transit was greater than 500. Vital signs at presentation shows poorly controlled hypertension but the patient has not been taking her home medications. She is in some mild distress appears to be slightly dehydrated. Lungs are clear heart is regular abdomen has diffuse tenderness based on physical exam but there is no specific guarding rigidity or peritoneal-like symptoms. Patient has poor skin turgor on presentation. Fluid boluses to be given, detailed medical evaluation to be completed for diabetic ketoacidosis as well as infectious etiology. Chest x-ray and CT imaging of the abdomen to be ordered. Clinically patient is concerning for infectious source causing poorly controlled diabetes as well as noncompliance with her medications. Patient will have detailed workup completed here. EKG and imaging studies are resulted. Patient will most likely need admission for definitive evaluation. Midline IV access to be obtained secondary to patient having poor IV access. Patient is otherwise stable resting in the bed at this time. Disposition pending treatment course. Fluids nausea medication pain medication to be provided as needed. - Reevaluation(s) Reevaluation #1: Patient found a stable ESRD with elevated creatinine be And decreased GFR. Patient otherwise has no visible signs of infectious etiology. She is not currently in diabetic ketoacidosis. CT imaging the abdomen is unremarkable. Chest x-ray stable. Patient will require admission for evaluation and medical management patient is to have her medications controlled and treated. Patient understands this is accommodating to this plan. Patient will be provided pain medication fluids here. Consultation placed to Dr. Witt for his recommendations to make sure the patient is scheduled for her dialysis tomorrow. Hospitalist Wilian mireles and I reviewed the patient's presentation medical intervention as well as physical exam findings. No other concerns or recommendations undeformed this time. Patient is otherwise resting comfortably in bed. Pain medication control. Admission process to be completed this point what appears to be dehydration diabetic-induced nausea and vomiting and gastroparesis. Patient will be admitted for definitive management. Time: 16:26 Vital Signs Temperature 98.6 F 04/06/17 12:28 Pulse Rate 94 04/06/17 12:28 Respiratory Rate 22 04/06/17 12:28 Blood Pressure 205/106 04/06/17 12:28 O2 Sat by Pulse Oximetry 95 04/06/17 12:28 Temperature 98.6 F 04/06/17 12:28 Pulse Rate 84 04/06/17 14:20 Respiratory Rate 18 04/06/17 14:20 Blood Pressure 194/110 04/06/17 14:20 O2 Sat by Pulse Oximetry 96 04/06/17 14:20 Oxygen Delivery Oxygen Delivery Room Air Nausea/Vomiting/Diarrhea - MDM Narrative Medical decision making narrative: Nausea and vomiting, gastroparesis, abdominal pain, dialysis - Medical Records Medical records reviewed: Yes I reviewed the patient's medical records. - Lab Data Lab results reviewed: Yes I reviewed the patient's lab results. Result diagrams: 04/06/17 14:12 04/06/17 14:12 Lab Results 04/06/17 04/06/17 04/06/17 Range/Units 12:33 12:34 14:12 WBC 4.5 (4.3-11.1) K/mcL RBC 3.17 L (3.82-4.97) M/mcL Hgb 8.8 L (11.5-15.4) g/dL Hct 27.8 L (35.3-44.9) % MCV 87.7 (83.0-100.0) fL MCH 27.8 L (28.0-33.3) pg MCHC 31.7 (31.6-35.5) g/dL RDW 15.3 H (11.5-14.5) % Plt Count 200 (140-400) K/mcL MPV 11.2 (9.4-12.4) fL Immature Gran % 0.7 (0-4) % Seg Neutrophils % 74.4 % Lymphocytes % 11.4 % Monocytes % 7.2 % Eosinophils % 5.6 % Basophils % 0.7 % Neutrophils # 3.3 (1.6-8.9) K/mcL Lymphocytes # 0.5 L (0.6-4.6) K/mcL Monocytes # 0.3 (0.0-1.3) K/mcL Eosinophils # 0.3 (0.0-0.6) K/mcL Basophils # 0.0 (0.0-0.2) K/mcL Immature Plt Fraction 4.7 (1.1-6.1) % VBG pH (7.32-7.42) pH Units VBG pCO2 (41-51) mmHg VBG pO2 (25-50) mmHg VBG HCO3 (21-27) mEq/L Sodium (136-145) mEq/L Potassium (3.5-4.5) mEq/L Chloride (98-109) mEq/L Carbon Dioxide (19-29) mEq/L BUN (7-20) mg/dL Creatinine (0.57-1.11) mg/dL Est GFR ( Amer) (> 60) Est GFR (Non-Af Amer) (> 60) BUN/Creatinine Ratio (6-26) Glucose (70-99) mg/dL POC Glucose 532 H* 521 H* (58-89) Calculated Osmolality (280-300) Lactic Acid (0.5-2.2) mmol/L Calcium (8.6-10.8) mg/dL Phosphorus (2.3-4.7) mg/dL Magnesium (1.6-2.6) mg/dL Beta-Hydroxybutyric Acd (0.02-0.27) mmol/L 04/06/17 04/06/17 04/06/17 Range/Units 14:12 14:12 14:27 WBC (4.3-11.1) K/mcL RBC (3.82-4.97) M/mcL Hgb (11.5-15.4) g/dL Hct (35.3-44.9) % MCV (83.0-100.0) fL MCH (28.0-33.3) pg MCHC (31.6-35.5) g/dL RDW (11.5-14.5) % Plt Count (140-400) K/mcL MPV (9.4-12.4) fL Immature Gran % (0-4) % Seg Neutrophils % % Lymphocytes % % Monocytes % % Eosinophils % % Basophils % % Neutrophils # (1.6-8.9) K/mcL Lymphocytes # (0.6-4.6) K/mcL Monocytes # (0.0-1.3) K/mcL Eosinophils # (0.0-0.6) K/mcL Basophils # (0.0-0.2) K/mcL Immature Plt Fraction (1.1-6.1) % VBG pH 7.47 H (7.32-7.42) pH Units VBG pCO2 30 L (41-51) mmHg VBG pO2 155 H (25-50) mmHg VBG HCO3 22 (21-27) mEq/L Sodium 130 L (136-145) mEq/L Potassium 4.7 H (3.5-4.5) mEq/L Chloride 96 L (98-109) mEq/L Carbon Dioxide 22 (19-29) mEq/L BUN 44 H (7-20) mg/dL Creatinine 6.64 H (0.57-1.11) mg/dL Est GFR ( Amer) 9 L (> 60) Est GFR (Non-Af Amer) 7 L (> 60) BUN/Creatinine Ratio 7 (6-26) Glucose 526 H* (70-99) mg/dL POC Glucose (58-89) Calculated Osmolality 305 H (280-300) Lactic Acid 1.3 (0.5-2.2) mmol/L Calcium 9.1 (8.6-10.8) mg/dL Phosphorus 6.3 H (2.3-4.7) mg/dL Magnesium 1.9 (1.6-2.6) mg/dL Beta-Hydroxybutyric Acd 0.21 (0.02-0.27) mmol/L - Radiology Data Radiology results reviewed: Yes I reviewed the patient's radiology results. CT imaging the abdomen is negative for acute intra-abdominal pathology. Chest x -ray is stable Critical Care Time Critical Care Time: Yes Total Critical Care Time: 30 Attestation: Critical care performed: Time is exclusive of separately billable procedures. Time includes: direct patient care, patient reassessment, coordination of patient care, interpretation of data (laboratory data, radiology data, and respiratory data), review of patient's medical records, medical consultation and documentation of patient care. Procedures included in critical care time: Procedures excluded from critical care time:
[2017-04-06] MEDS ORDERED: Insulin Human Regular 10 UNIT in 0.9 % Sodium Chloride 10 ML IV ONE (15:39)
[2017-04-06] MEDS: Metoclopramide 10 MG/2 ML VIAL IVP ONE ×2 (16:10→16:35)
[2017-04-06] MEDS ORDERED: *HR* Promethazine 25 MG/ML VIAL IVP PRN (22:30)
[2017-04-06] MEDS ORDERED: *HR* HYDROmorphone 2 MG TABLET PO ONE (22:30)
[2017-04-06] MEDS ORDERED: *HR* Dextrose 50 % in Water (Syg) 50 ML SYRINGE IVP PRN (22:32)
[2017-04-06] MEDS ORDERED: Dextrose Gel 15 GM PO PRN ×2 (22:32)
[2017-04-06] MEDS ORDERED: D5% in Water 1,000 ML IVC PRN (22:32)
[2017-04-06] MEDS ORDERED: *HR* HYDROmorphone 2 MG/ML SYRINGE IVP ONE (22:48)
[2017-04-06] MEDS ORDERED: *HR* HYDROmorphone 2 MG/ML SYRINGE ONE (22:49)
[2017-04-06] MEDS: Insulin LISPRO 300 UNITS/3 ML VIAL SQ SCH (22:51)
--- NOTE | 2017-04-06 22:56 | Internal Med History&Physical ---
<Fritz Juares - Last Filed: 04/07/17 00:22> Date of Encounter: 04/07/17 Time of Encounter: 21:30 Assessment and Plan (1) Abdominal pain Current visit: No Status: Acute Patient's abdominal pain is diffuse, nonradiating, aching, rated 5/10. Possibly secondary to diabetic gastroparesis. -CT scan of the abdomen and pelvis showed no acute changes. -Patient's pain improved with Dilaudid in the emergency department. -Dilaudid 1 mg Q4hr PRN. Qualifiers: Abdominal location: left upper quadrant Qualified Code(s): R10.12 - Left upper quadrant pain (2) Intractable nausea and vomiting Current visit: Yes Status: Acute Patient has severe nausea and vomiting, possibly secondary to Diabetic gastroparesis. -Patient states that she is unable to take Zofran, as she has a severe reaction to it. -Reglan 10mg Q6hr. -Phenergan as needed. Qualifiers: Vomiting type: unspecified Qualified Code(s): R11.2 - Nausea with vomiting , unspecified (3) Dehydration Current visit: Yes Status: Acute Patient demonstrated several signs of dehydration, likely due to patient's repeated vomiting. -Patient had poor skin turgor and dry mucous membranes. -IV fluids. (4) HTN (hypertension) Current visit: Yes Status: Chronic Patient has a history of hypertension. -On arrival, patient's blood pressure was 205/106. Blood pressure is currently stable at 133/77. -Patient admits that she does not take her hypertension medication regularly. -She is prescribed lisinopril 20 mg by mouth twice a day, and Coreg 25 mg by mouth twice a day. -Resume home medications. -Continue to monitor vital signs. Qualifiers: Hypertension type: essential hypertension Qualified Code(s): I10 - Essential (primary) hypertension (5) DVT prophylaxis Current visit: No Status: Acute Heparin 5000 subcutaneous. (6) ESRD (end stage renal disease) on dialysis Current visit: No Status: Acute Patient receives dialysis on Wednesday, Wednesday, and Wednesday. -Claims to be compliant with dialysis. -Consult to nephrology. (7) Gastroparesis Current visit: No Status: Chronic Patient describes a history that is consistent with the diagnosis of gastroparesis. -Patient has had 4 EGDs in the past, and these diagnostic tests have shown the presence of yeast and rotten food in the stomach. -Patient is an uncontrolled diabetic. Patient's Accu-Chek in transit to the hospital was greater than 500. Last glucose was 526. -Patient will need additional evaluation, possibly in the form of an another EGD or motility studies. -Consult to food and nutrition teacher. (8) DM type 1 (diabetes mellitus, type 1) Current visit: Yes Status: Chronic Patient is an uncontrolled diabetic. -Patient's glucose on arrival was 526. -Sliding scale insulin. -Diabetic diet. -Consult to food and nutrition teacher. Qualifiers: Diabetes mellitus complication status: with unspecified complications Qualified Code(s): E10.8 - Type 1 diabetes mellitus with unspecified complications Internal Medicine - H&P: HPI Chief complaint: Abdominal pain Admitted From: Home History of present illness: Ms. Benavidez is a 36 year old female with a past medical history of coronary artery disease, diabetes, renal disease, and hypertension who presented to the emergency department with the chief complaint of nausea, vomiting, and abdominal pain of 2 weeks' duration. Patient says that she has had these issues multiple times in the past. She has been seen several times this year alone for similar complaints. Patient states that she has been vomiting any time she has attempted to eat anything for the last 2 weeks. She is even unable to keep down ice chips. Patient admits to vomiting approximately 10 times today, and has vomited anywhere between 5-10 times per day in the last 2 weeks. Consistency and appearance of her vomit depends on what she ate. She states that she has had several EGD studies done in the past, and that they have revealed the presence of both yeast and rotten food in her stomach. She also complains of diffuse abdominal pain. She describes this pain as a constant ache, rated 5 out of 10, non-radiating, with no exacerbations or remissions. The pain is not improved with vomiting. Patient's issues with abdominal pain of been going on for the past 3 years, and patient's vomiting and nausea have been on and off for the last year. Patient also admits to having some difficulty swallowing. This happens with both solids and liquids. Patient does not have any pain with swallowing, although whenever she tries to swallow a piece of food, she feels that it gets stuck in the lower portion of her neck. She states that she usually has to take a culprit of water in order to keep her food down. Patient is a dialysis patient, who normally receives dialysis on Wednesday, Wednesday, and Wednesday. Patient claims to be compliant with dialysis. However, patient admits that she has not been taking hypertension medications regularly. Has not been compliant with her hypertension medications. She denies any fever, chills, chest pain, abdominal distention, diarrhea, and constipation. Past Med Surg Social Fam HX - Past Medical History Medical history: coronary artery disease, diabetes, dialysis, hypertension, renal disease Psychiatric history: anxiety, depression - Past Surgical History Surgical History: angioplasty/stent, hip replacement, hysterectomy, other - Social History Smoking Status: Former smoker Smokeless Tobacco Status: No Alcohol use: none Drug use: none - Family History Mother Adopted: No Family Member Ethnicity: Non- Living Status: Still Living Hx Family Cardiac Disorders: Yes (Father with coronary artery disease) Hx Family Respiratory Disorders: No Hx Family Cancer: Yes (Breast) Hx Family GI Disorders: No Hx Family Endocrine Disorder: Yes (Mother with dm) Hx Family Neuromuscular Disorders: No Hx Family Neurologic Disorders: No Hx Family HEENT Disorders: No Hx Family Autoimmune Disorders: No Internal Medicine - H&P: Meds Aspirin 81 mg PO DAILY #30 tab.chew 12/22/15 [Rx] HYDROcodone/Acet 10/325 mg [[place] 10-325 mg] 1 tab PO QID PRN 01/21/16 [History] Venlafaxine XR (24 HR) [Effexor XR] 37.5 mg PO HS 04/20/16 [History] Insulin ASPART [NovoLOG] 5 - 10 unit SQ TIDWM 04/21/16 [History] Clopidogrel [Plavix] 75 mg PO DAILY tablet 04/23/16 [Rx] Lisinopril [Zestril] 20 mg PO BID 60 Days tablet 11/13/16 [Rx] Carvedilol [Coreg] 25 mg PO BIDWM 01/23/17 [History] CloNIDine Patch [Catapres-Tts] 0.2 mg TD QWEEK 01/23/17 [History] Insulin DETEMIR [Levemir] 60 - 80 unit SQ HS 01/23/17 [History] Acetaminophen [Tylenol] 650 mg PO Q6HR PRN tab 01/30/17 [Rx] Omeprazole [PriLOSEC] 20 mg PO BIDAC #60 cap 01/30/17 [Rx] Colesevelam HCl [Welchol] 625 mg PO TID 04/06/17 [History] 3 Allergy/AdvReac Type Severity Reaction Status Date / Time Amoxicillin Allergy Hives Verified 04/06/17 16:20 metoclopramide [From Reglan] AdvReac Shakiness Verified 04/06/17 16:20 ondansetron AdvReac Vomiting Verified 04/06/17 16:20 [From Zofran (as hydrochloride)] All Systems PM: A 10-system review of systems was performed and is negative for pertinent findings except as documented above in the HPI. - Constitutional Constitutional: as per HPI, no chills, no fatigue, no fever(s), no lethargy - EENT Nose, mouth and throat: dry mouth - Cardiovascular Cardiovascular ROS IM: no chest pain, no diaphoresis, no dyspnea, no edema, no palpitations - Respiratory Respiratory: no cough, no dyspnea, no dyspnea on exertion, no wheezing - Gastrointestinal Gastrointestinal: abdominal pain, nausea, vomiting, no bloating, no change in bowel habits, no change in stool character, no constipation, no diarrhea, no early satiety, no heartburn, no loose stools Additional comments: Diffuse abdominal pain, 5 out of 10, aching in character. - Genitourinary Genitourinary: no difficulty urinating, no difficulty voiding, no dysuria, no flank pain - Musculoskeletal Musculoskeletal ROS IM: joint swelling Additional comments: Patient appears to have bursitis on her right elbow. - Integumentary Integumentary IM: skin ulcer Additional comments: Patient has a diabetic ulcer on her left foot. - Neurological Neurological ROS: no paresthesias, no tingling, no weakness - Constitutional Vitals: Temp Pulse Resp BP Pulse Ox 97.3 F L 97 18 133/77 92 04/06/17 20:18 04/06/17 20:18 04/06/17 20:18 04/06/17 20:18 04/06/17 20:18 General appearance: Present: severe distress, answers questions appropriately - Head Head exam: Present: normal inspection - ENT ENT exam: Present: mucous membranes dry - Neck Neck exam general surgery: Present: normal inspection - Respiratory Respiratory exam: Present: CTAB. Absent: accessory muscle use, chest wall tenderness, rales, rhonchi, wheezes - Cardiovascular Cardiovascular exam: Present: RRR, +S1, +S2. Absent: diastolic murmur, gallop, rubs, systolic murmur - GI/Abdominal GI/Abdominal exam: Present: normal bowel sounds, soft, tenderness, no peritoneal signs. 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 Patient has a diabetic ulcer on her left foot. Patient sees a moisture conditioner operator for this. - Skin Skin exam: Present: dry. Absent: diaphoretic, rash Internal Med - H&P Results - Labs CBC & Chem 7: 04/06/17 14:12 04/06/17 14:12 <Billy Rosales - Last Filed: 04/07/17 02:04> Date of Encounter: 04/06/17 Internal Medicine - H&P: HPI History of present illness: Ms. Benavidez is a 36 year old female All Systems PM: A 10-system review of systems was performed and is negative for pertinent findings except as documented above in the HPI. 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 I agree with the documented findings, disposition and treatment plan as described except to the extent set forth below. Patient has had multiple admissions for nausea and vomiting, she had a gastric emptying study 2 years ago at [facility] that was inconclusive because she was on pain medications at the time she was informed. She was doing well on reglan until the dose was increased and she started having muscle twitches so this was stopped. She most likely has gastroparesis, she had EGD/colonoscopy in 01/2017. We will do supportive therapy pending outpatient GI followup when stable. Her hyperglycemia has resolved so we will do basal bolus insulin regimen instead of insulin drip. Her A1c when checked last week was 7% per self report. Billy Rosales MD, MPH Hospitalist
[2017-04-06] MEDS ORDERED: *HR* HYDROcodone/Acet 10/325 mg TABLET PO PRN (23:18)
[2017-04-06] MEDS ORDERED: Acetaminophen 325 MG TABLET PO PRN (23:18)
[2017-04-07] MEDS: Lisinopril 20 MG TABLET PO SCH ×3 (00:30→20:46)
[2017-04-07] MEDS ORDERED: CloNIDine Patch 0.2 MG PATCH (WEEKLY) TD SCH (01:00)
[2017-04-07] MEDS: *HR* HYDROmorphone 2 MG/ML SYRINGE IVP PRN ×2 (03:06→08:21)
[2017-04-07] MEDS ORDERED: *HR* Metoprolol 5 MG/5 ML VIAL IVP ONE (04:38)
[2017-04-07] MEDS: *HR* Heparin 5,000 UNIT/ML VIAL SQ SCH ×2 (06:16→18:24)
[2017-04-07] MEDS ORDERED: Prochlorperazine 10 MG/2 ML VIAL IVP ONE (08:21)
--- NOTE | 2017-04-07 08:21 | Nephrology Consult Note ---
Date of Encounter: 04/07/17 Time of Encounter: 08:19 Assessment and Plan (1) ESRD (end stage renal disease) on dialysis Current Visit: No Status: Chronic The patient will undergo dialysis today. Volume removal should help with her shortness of breath and blood pressure. She will be placed on Aranesp for her anemia. I would suggest consulting GI. She may benefit from another EGD to check the status of previous diagnosis of fungal esophagitis, to see if she has developed an esophageal stricture, and to check the status of her gastroparesis. (2) Type 1 diabetes mellitus with end-stage renal disease (ESRD) Current Visit: Yes Status: Acute (3) Benign hypertensive kidney disease with end stage renal disease Current Visit: Yes Status: Acute (4) Anemia in chronic kidney disease (CKD) Current Visit: Yes Status: Acute Qualifiers: Chronic kidney disease stage: on chronic dialysis Qualified Code(s): N18.6 - End stage renal disease; D63.1 - Anemia in chronic kidney disease; D63.1 - Anemia in chronic kidney disease; Z99.2 - Dependence on renal dialysis; Z99.2 - Dependence on renal dialysis; Z99.2 - Dependence on renal dialysis; Z99.2 - Dependence on renal dialysis (5) Intractable nausea and vomiting Current Visit: Yes Status: Acute Qualifiers: Vomiting type: unspecified Qualified Code(s): R11.2 - Nausea with vomiting , unspecified (6) Gastroparesis Current Visit: No Status: Chronic History of Present Illness - History of Present Illness This is a 36-year-old female who was admitted through emergency room with complaints of abdominal pain, nausea and vomiting, and shortness of breath. Patient has end-stage renal disease related type I diabetic nephropathy. She receives dialysis every Wednesday and . Her last dialysis was this past Wednesday. Patient has a history of poor compliance with antihypertensive medications and managing her glucose. She has a history of gastroparesis. She has had multiple EGDs in the past which have shown fungal esophagitis as well as evidence of old food in her stomach. She has been treated with medication but usually fails to respond. She also reports that she was recently told that she may have an esophageal stricture when she was hospitalized at [facility]. Currently she complains of nausea vomiting and abdominal pain. She says she is only able to eat ice. She reports that she has lost about 75 pounds of weight over the past few months. Chest x-ray shows evidence of pulmonary edema and some small pleural effusions. She has had larger pleural effusions in the past and has required thoracentesis in the past Blood pressure in the ER was 205/106. Patient reports that because of her chronic nausea and vomiting she is unable to take her antihypertensive medications. Current blood pressure is 172/91. Glucose is 526. CT scan of the abdomen was unremarkable. Past Med Surg Social Fam HX - Past Medical History Medical history: coronary artery disease, diabetes, dialysis, hypertension, renal disease Psychiatric history: anxiety, depression - Past Surgical History Surgical History: angioplasty/stent, hip replacement, hysterectomy, other - Social History Smoking Status: Former smoker Smokeless Tobacco Status: No Alcohol use: none Drug use: none - Family History Mother Adopted: No Family Member Ethnicity: Non- Living Status: Still Living Hx Family Cardiac Disorders: Yes (Father with coronary artery disease) Hx Family Respiratory Disorders: No Hx Family Cancer: Yes (Breast) Hx Family GI Disorders: No Hx Family Endocrine Disorder: Yes (Mother with dm) Hx Family Neuromuscular Disorders: No Hx Family Neurologic Disorders: No Hx Family HEENT Disorders: No Hx Family Autoimmune Disorders: No Medications and Allergies Aspirin 81 mg PO DAILY #30 tab.chew 12/22/15 [Rx] HYDROcodone/Acet 10/325 mg [Norris 10-325 mg] 1 tab PO QID PRN 01/21/16 [History] Venlafaxine XR (24 HR) [Effexor XR] 37.5 mg PO HS 04/20/16 [History] Insulin ASPART [NovoLOG] 5 - 10 unit SQ TIDWM 04/21/16 [History] Clopidogrel [Plavix] 75 mg PO DAILY tablet 04/23/16 [Rx] Lisinopril [Zestril] 20 mg PO BID 60 Days tablet 11/13/16 [Rx] Carvedilol [Coreg] 25 mg PO BIDWM 01/23/17 [History] CloNIDine Patch [Catapres-Tts] 0.2 mg TD QWEEK 01/23/17 [History] Insulin DETEMIR [Levemir] 60 - 80 unit SQ HS 01/23/17 [History] Acetaminophen [Tylenol] 650 mg PO Q6HR PRN tab 01/30/17 [Rx] Omeprazole [PriLOSEC] 20 mg PO BIDAC #60 cap 01/30/17 [Rx] Colesevelam HCl [Welchol] 625 mg PO TID 04/06/17 [History] 3 Allergy/AdvReac Type Severity Reaction Status Date / Time Amoxicillin Allergy Hives Verified 04/06/17 16:20 metoclopramide [From Reglan] AdvReac Shakiness Verified 04/06/17 16:20 ondansetron AdvReac Vomiting Verified 04/06/17 16:20 [From Zofran (as hydrochloride)] Review of Systems Constitutional: as per HPI, weight loss Eyes: bilateral: blurred vision (patient denies), diplopia (patient denies) Nose, mouth and throat: no dizziness, no headache(s) Cardiovascular: chest pain, dyspnea, dyspnea on exertion, no palpitations Respiratory: dyspnea, dyspnea on exertion Gastrointestinal: abdominal pain, coffee ground emesis, diarrhea, nausea, vomiting Musculoskeletal: no muscle weakness, no numbness Integumentary: no hirsutism, no striae Neurological: as per HPI Psychiatric: no depression, no difficulty concentrating Endocrine: as per HPI Exam - Vital Signs Vital signs: Initial Vital Signs Temp Pulse Resp BP Pulse Ox 98.6 F 94 22 205/106 95 04/06/17 12:28 04/06/17 12:28 04/06/17 12:28 04/06/17 12:28 04/06/17 12:28 Vital Signs - Last 8 Hours Temp Pulse Resp BP Pulse Ox 04/07/17 06:55 98.3 F 88 17 172/91 93 04/07/17 04:04 98.7 F 101 17 175/98 93 Intake and Output 04/06/17 04/07/17 04/07/17 23:59 07:59 15:59 Intake Total 0 / 0 Balance 0 / 0 Intake: Oral 0 / 0 Other: Weight 89.9 kg Blood Glucose* 323 Patient Weight 04/07/17 23:59 Weight 89.9 kg - General Appearance Exam: Patient is alert and oriented. She is in no acute distress. Neck is supple. Lungs symmetric breath sounds in the bases. Heart regular rhythm with a 2/6 soft ejection murmur. Abdomen shows normal bowel sounds. There is diffuse tenderness. There is no guarding nor rigidity. There is no lower extremity swelling. 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 There is a tunnel dialysis catheter in the right chest. Results - Lab Results 04/06/17 14:12 04/06/17 14:12 Most recent lab results Calcium 9.1 mg/dL (8.6-10.8) 04/06/17 14:12 Phosphorus 6.3 mg/dL (2.3-4.7) H 04/06/17 14:12 Magnesium 1.9 mg/dL (1.6-2.6) 04/06/17 14:12 Consult Discharge Plan - Plan Referrals: Colt Espinoza MD [Primary Care Provider] -
[2017-04-07] MEDS: Insulin LISPRO 300 UNITS/3 ML VIAL SQ SCH ×4 (08:24→20:54)
[2017-04-07] MEDS ORDERED: 0.9 % Sodium Chloride 250 ML IVC PRN (08:24)
[2017-04-07] MEDS ORDERED: Darbepoetin 100 MCG/0.5 ML SYRINGE SQ SCH (08:30)
[2017-04-07] MEDS: Aspirin 81 MG TAB.CHEW PO SCH (11:53)
[2017-04-07 14:16] LABS: Basophils % 0.7 %; Eosinophils # 0.4 K/mcL (0.0-0.6); Eosinophils % 7.2 %; Hematocrit 26.1 % (35.3-44.9); Hemoglobin 8.3 g/dL (11.5-15.4); Immature Granulocytes % 0.5 % (0-4); Lymphocytes # 0.8 K/mcL (0.6-4.6); Lymphocytes % 13.3 %; Mean Corpuscular HGB Conc 31.8 g/dL (31.6-35.5); Mean Corpuscular Hemoglobin 27.7 pg (28.0-33.3); Mean Platelet Volume 10.5 fL (9.4-12.4); Monocytes # 0.6 K/mcL (0.0-1.3); Monocytes % 9.7 %; Neutrophils # 4.1 K/mcL (1.6-8.9); Platelet Count 223 K/mcL (140-400); Red Cell Distribution Width 15.6 % (11.5-14.5); Segmented Neutrophils % 68.6 %
[2017-04-07 14:23] LABS: Calcium 9.2 mg/dL (8.6-10.8); Potassium 4.6 mEq/L (3.5-4.5)
--- NOTE | 2017-04-07 18:02 | Internal Med Progress Note ---
Date of Encounter: 04/07/17 Time of Encounter: 16:00 - Assessment and plan (1) Intractable nausea and vomiting Current Visit: Yes Status: Acute Assessment and plan: Long history, known to Dr. Baez, who was consulted. She states she is allergic to Zofran and Reglan. Giving IV Phenergan with Dilaudid can cause sedation. Dilauded can worsen gastroparesis. Compazine will be tried in the mean time. These will be discontinued. Appreciate GI recs on medical management of symptoms. Qualifiers: Vomiting type: unspecified Qualified Code(s): R11.2 - Nausea with vomiting , unspecified (2) Dehydration Current Visit: Yes Status: Acute Assessment and plan: Continue IVF (3) Hyperglycemia Current Visit: No Status: Acute Assessment and plan: Adding basal insulin to better control glucose and gastroparesis symptoms. (4) HTN (hypertension) Current Visit: Yes Status: Chronic Qualifiers: Hypertension type: essential hypertension Qualified Code(s): I10 - Essential (primary) hypertension (5) Gastroparesis Current Visit: No Status: Chronic Assessment and plan: Appreciate GI recs for management . (6) ESRD (end stage renal disease) on dialysis Current Visit: No Status: Chronic Assessment and plan: Nephrology following, patient dialysis today. - Subjective Interval history: Patient upset because nausea is uncontrolled. Wishes for IV Phenergan. Also requests IV Dilaudid. - Constitutional Vitals: Temp Pulse Resp BP Pulse Ox 97.5 F L 86 17 151/81 95 04/07/17 11:03 04/07/17 11:03 04/07/17 11:03 04/07/17 12:42 04/07/17 11:03 General appearance: Present: severe distress, answers questions appropriately Exam: - Head Head exam: Present: normal inspection - Respiratory Respiratory exam: Present: CTAB. Absent: accessory muscle use, chest wall tenderness, rales, rhonchi, wheezes - Cardiovascular Cardiovascular exam: Present: RRR, +S1, +S2. Absent: diastolic murmur, gallop, rubs, systolic murmur - GI/Abdominal GI/Abdominal exam: Present: normal bowel sounds, soft, + tenderness, no peritoneal signs. 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 Patient has a diabetic ulcer on her left foot. Patient sees a specialty sales consultant for this. - Skin Skin exam: Present: dry. Absent: diaphoretic, rash Internal Medicine: Result - Labs CBC & Chem 7: 04/07/17 13:16 04/07/17 13:16 Labs: Short CBC 04/07/17 Range/Units 13:16 WBC 6.0 (4.3-11.1) K/mcL Hgb 8.3 L (11.5-15.4) g/dL Hct 26.1 L (35.3-44.9) % Plt Count 223 (140-400) K/mcL Neutrophils # 4.1 (1.6-8.9) K/mcL BMP 04/07/17 13:16 Sodium 131 L Potassium 4.6 H Chloride 95 L Carbon Dioxide 22 BUN 55 H Creatinine 8.27 H Glucose 130 H Calcium 9.2 Consult Discharge Plan - Plan Referrals: Colt Espinoza MD [Primary Care Provider] -
[2017-04-07] MEDS ORDERED: *HR* Heparin 10,000 UNIT/10 ML VIAL IV PRN (18:38)
[2017-04-07] MEDS ORDERED: 0.9 % Sodium Chloride 2,000 ML ONE (19:05)
--- NOTE | 2017-04-07 20:13 | Electrocardiograph Report ---
[address] [place], [place] [address] Test Date: 2017-04-06 Pat Name: Freya Benavidez Department: 103 Room: 2A Gender: F [employer] [place]: JOÃO : 1980 Requested By: Terrance Barksdale Order Number: [id number] Reading MD: Tone Bowen MD Measurements Intervals [place] Rate: 100 P: TX: 0 QRS: 1 QRSD: 110 T: 130 QT: 359 QTc: 416 Interpretive Statements SINUS TACHYCARDIA LATERAL ISCHEMIA Electronically Signed On 04-07-2017 20:12:04 EDT by Tone Bowen MD
[2017-04-07] MEDS ORDERED: Dicyclomine 20 MG/2 ML AMPUL IM ONE (20:32)
[2017-04-07] MEDS: Prochlorperazine 10 MG/2 ML VIAL IVP PRN (20:43)
[2017-04-07] MEDS: Venlafaxine XR (24 HR) 37.5 MG CAP.ER.24H PO SCH (20:46)
[2017-04-07] MEDS ORDERED: Insulin DETEMIR 100 UNIT/ML X5UNITS SQ SCH (21:00)
[2017-04-08 05:15] LABS: Basophils % 0.6 %; Eosinophils # 0.3 K/mcL (0.0-0.6); Eosinophils % 5.7 %; Hematocrit 27.9 % (35.3-44.9); Hemoglobin 8.9 g/dL (11.5-15.4); Immature Granulocytes % 0.2 % (0-4); Lymphocytes # 0.7 K/mcL (0.6-4.6); Lymphocytes % 14.7 %; Mean Corpuscular HGB Conc 31.9 g/dL (31.6-35.5); Mean Corpuscular Hemoglobin 27.5 pg (28.0-33.3); Mean Corpuscular Volume 86.1 fL (83.0-100.0); Mean Platelet Volume 11.4 fL (9.4-12.4); Monocytes # 0.5 K/mcL (0.0-1.3); Monocytes % 9.5 %; Neutrophils # 3.3 K/mcL (1.6-8.9); Platelet Count 209 K/mcL (140-400); Red Blood Count 3.24 M/mcL (3.82-4.97); Red Cell Distribution Width 15.8 % (11.5-14.5); Segmented Neutrophils % 69.3 %
[2017-04-08 05:28] LABS: Calcium 9.3 mg/dL (8.6-10.8)
[2017-04-08 05:34] LABS: Potassium 4.4 mEq/L (3.5-4.5)
[2017-04-08] MEDS: *HR* Heparin 5,000 UNIT/ML VIAL SQ SCH ×2 (06:19→17:15)
[2017-04-08] MEDS: Insulin LISPRO 300 UNITS/3 ML VIAL SQ SCH ×4 (08:43→20:06)
[2017-04-08] MEDS: Aspirin 81 MG TAB.CHEW PO SCH (08:44)
[2017-04-08] MEDS: Lisinopril 20 MG TABLET PO SCH ×2 (08:44→20:04)
[2017-04-08] MEDS: Prochlorperazine 10 MG/2 ML VIAL IVP PRN ×3 (08:49→23:18)
--- NOTE | 2017-04-08 09:36 | Nephrology Progress Note ---
Date of Encounter: 04/08/17 Time of Encounter: 09:20 - Assessment and Plan (1) ESRD (end stage renal disease) on dialysis Current Visit: No Status: Chronic Continues to have GI issues. GI consulted. Respiratory issue resolved. HD tomorrow, keeping MWF schedule. (2) Gastroparesis Current Visit: No Status: Chronic Subjective Interval history: States nauseated, antiemetic not effective. States abdominal discomfort that starts in lower abdomen and radiates to epigastric area. Denies SOB. Objective - Vital Signs Vital signs: Vital Signs Temp Pulse Resp BP Pulse Ox 04/08/17 08:22 98.7 F 98 17 208/90 92 04/08/17 04:17 97.4 F L 91 19 168/92 99 04/08/17 01:04 97.6 F 98 19 174/88 97 04/07/17 19:44 97.8 F 100 20 212/109 96 04/07/17 19:10 97.6 F 17 183/102 04/07/17 19:00 159/90 04/07/17 18:30 162/82 04/07/17 18:00 187/99 04/07/17 17:30 180/93 04/07/17 17:00 168/99 04/07/17 16:30 166/92 04/07/17 16:00 159/89 04/07/17 15:30 97.4 F L 18 177/102 04/07/17 12:42 151/81 04/07/17 11:03 97.5 F L 86 17 151/81 95 Intake and Output 04/07/17 04/08/17 04/08/17 23:59 07:59 15:59 Intake Total 0 / 0 600 / 600 120 / 120 Output Total 4600 / 4600 Balance -4600 / -4600 600 / 600 120 / 120 Intake: Oral 0 / 0 600 / 600 120 / 120 Output: Urine 0 / 0 Total Dialysis (HD) Output 4600 / 4600 Other: Meal Breakfast Percent of Meal Consumed 100% Blood Glucose* 201 257 Hemodialysis Net Fluid Removed 4000 (mL) - General Appearance General appearance: Present: well-developed, well-nourished, appears started age EENT: Present: mucous membranes moist Neck: Present: no JVD Respiratory: Present: clear Cardiology: Present: no edema, regular rate, regular rhythm Additional Comments: right BKA Gastrointestinal: Present: normoactive bowel sounds, no tenderness Integumentary: Present: warm and dry Neurologic: Present: alert and oriented x3 Psychiatric: Present: mood/affect appropriate, cooperative - Lab 04/08/17 04:52 04/08/17 04:52 Most recent lab results Calcium 9.3 mg/dL (8.6-10.8) 04/08/17 04:52 Phosphorus 6.3 mg/dL (2.3-4.7) H 04/06/17 14:12 Magnesium 1.9 mg/dL (1.6-2.6) 04/06/17 14:12 Consult Discharge Plan - Plan Referrals: Colt Espinoza MD [Primary Care Provider] -
--- NOTE | 2017-04-08 10:48 | Gastroenterology Consult Note ---
<Marija Emanuel - Last Filed: 04/08/17 10:57> Date of Encounter: 04/08/17 Time of Encounter: 09:15 - Assessment and plan (1) Intractable nausea and vomiting Current Visit: Yes Status: Acute Assessment and plan: Pt has chronic nausea and vomiting for at least the past year. EGD 02/11 showed severe gastroparesis. She is being treated with compazine, and prilosec. Will add carafate. She is scheduled for outpatient EGD. Qualifiers: Vomiting type: unspecified Qualified Code(s): R11.2 - Nausea with vomiting , unspecified (2) Dysphagia Current Visit: Yes Status: Acute Assessment and plan: Pt complains of dysphagia, she is unable to have EGD and dilation due to plavix. Will continue with outpatient EGD as planned and continue symptomatic treatment with carafate and PPI.. Qualifiers: Dysphagia type: pharyngoesophageal phase Qualified Code(s): R13.14 - Dysphagia, pharyngoesophageal phase (3) Gastroparesis Current Visit: No Status: Chronic (4) Abdominal pain Current Visit: No Status: Acute Assessment and plan: Chronic abdominal pain may be related to gastroparesis. She has some relief with po bentyl at home will restart. Qualifiers: Abdominal location: generalized Qualified Code(s): R10.84 - Generalized abdominal pain - Time Spent With Patient Total time spent is greater than 50% in coordination of care (as documented) at patient's floor/unit and/or counseling patient: GI History of Present Illness - Data of Consult Patient: known to practice within the last 3 years Consult date: 04/08/17 Requesting Physician: Edmar Mcclure MD - Consult Narrative History of present illness: Ms. Benavidez is a 36 year old female who presented with abdominal pain, nausea and vomiting. She has a PMH of HTN, DM type 2, CAD with stent, hx of DVT, PVD s/ p R BKA and L forefoot amputation, ESRD on HD.She is known to me from the office and had EGD/colonoscopy 02/11. She has severe gastroparesis likely due to longstanding uncontrolled DM. She is complaining of lower abdominal cramping, was on bentyl at home with some relief. She also complains of nausea and vomiting 5-10 times a day for the past 2 weeks. She has dyspepsia, dysphagia with solids and liquids and chronic acid reflux symptoms. She denies pain with swallowing, but reports that whenever she tries to swallow a piece of food it gets stuck in the lower portion of her neck. Labs show Hgb 8.9, PLT 209, BUN 34 , CREAT 5.54, Colonoscopy: 02/11 one 10 mm non-bleeding polyp in descending colon Path tubular adenoma EGD: 02/11 large amount of food residue consistent with severe gastroparesis 2016 - Gul - monilial esophagitis, food residue NSAIDS: ASA Anticoagulants: Plavix Past Med Surg Social Fam HX - Past Medical History Medical history: coronary artery disease, diabetes, dialysis, hypertension, renal disease Psychiatric history: anxiety, depression - Past Surgical History Surgical History: angioplasty/stent, hip replacement, hysterectomy, other - Social History Smoking Status: Former smoker Smokeless Tobacco Status: No Alcohol use: none Drug use: none - Family History Mother Adopted: No Family Member Ethnicity: Non- Living Status: Still Living Hx Family Cardiac Disorders: Yes (Father with coronary artery disease) Hx Family Respiratory Disorders: No Hx Family Cancer: Yes (Breast) Hx Family GI Disorders: No Hx Family Endocrine Disorder: Yes (Mother with dm) Hx Family Neuromuscular Disorders: No Hx Family Neurologic Disorders: No Hx Family HEENT Disorders: No Hx Family Autoimmune Disorders: No Review of Systems: GI: as per [place] [facility]: denies fever, has some chills EYES: denies yellow discoloration ENT: see HPI CARDIO: denies chest pain, palpitations RESP: chronic shortness of breath with exertion : denies change in color of urine NEURO: reports weakness HEME: has bruising MS: chronic joint pain, and back pain. DERM: denies rash or itching PSYCH: history of anxiety or depression - Constitutional Vitals: Temp Pulse Resp BP Pulse Ox 98.7 F 98 17 182/92 92 04/08/17 08:22 04/08/17 08:22 04/08/17 08:22 04/08/17 10:00 04/08/17 08:22 Exam: CONSTITUTIONAL:~alert, no acute distress.~HEAD:~normocephalic.~EYES:~no jaundice.~NECK:~no obvious swelling.~HEART:~regular rate and rhythm, no murmurs. ~LUNGS:~fair air entry bilaterally.~ABDOMEN:~non distended, soft, diffuse tenderness, no masses palpable, no organomegaly, .~RECTAL EXAM:~Deferred.~ EXTREMITIES:~no clubbing, cyanosis or edema, right BKA left forefront amputation , left arm AV fistula with dressing intact.~SKIN:~no stigmata of chronic liver disease, pallor noted.~NEUROLOGIC:~no obvious focal defect.~~~~ Results - Labs CBC & Chem 7: 04/08/17 04:52 04/08/17 04:52 Labs: Last Result Calcium 9.3 mg/dL (8.6-10.8) 04/08/17 04:52 Entire Visit Hgb 8.9 g/dL (11.5-15.4) L 04/08/17 04:52 Hct 27.9 % (35.3-44.9) L 04/08/17 04:52 Consult Discharge Plan - Plan Referrals: Colt Espinoza MD [Primary Care Provider] - <Mark Bonilla - Last Filed: 04/08/17 17:51> Date of Encounter: 04/08/17 Time of Encounter: 17:35 - Time Spent With Patient Total time spent is greater than 50% in coordination of care (as documented) at patient's floor/unit and/or counseling patient: GI History of Present Illness - Data of Consult Requesting Physician: Edmar Mcclure MD - Consult Narrative History of present illness: Ms. Benavidez is a 36 year old female - Constitutional Vitals: Temp Pulse Resp BP Pulse Ox 100.2 F H 93 17 159/81 97 04/08/17 15:21 04/08/17 15:21 04/08/17 15:21 04/08/17 15:21 04/08/17 15:21 Results - Labs CBC & Chem 7: 04/08/17 04:52 04/08/17 04:52 Labs: Last Result Calcium 9.3 mg/dL (8.6-10.8) 04/08/17 04:52 Entire Visit Hgb 8.9 g/dL (11.5-15.4) L 04/08/17 04:52 Hct 27.9 % (35.3-44.9) L 04/08/17 04:52 Total Bilirubin 0.4 mg/dL (0.2-1.2) 04/08/17 15:35 AST 10 Units/L (5-34) 04/08/17 15:35 ALT 7 Units/L (0-55) 04/08/17 15:35 - Attending Attestation I examined this patient and my medical decision-making was reviewed with the Resident Physician. I agree with the documented findings, disposition and treatment plan as described except to the extent set forth below. Patient seen. Continued complaint of nausea vomiting along with dysphagia. Per patient she is not taking any Plavix for the last 3-4 month. And per patient she did not look any while in the hospital. Patient will be scheduled for EGD possible dilation in the morning
[2017-04-08] MEDS: *HR* HYDROcodone/Acet 10/325 mg TABLET PO PRN ×3 (10:55→23:18)
[2017-04-08] MEDS: Sucralfate 1 GM TABLET PO SCH ×3 (12:19→20:04)
[2017-04-08 17:04] LABS: Albumin 2.8 g/dL (3.5-5.0); Albumin/Globulin Ratio 0.6 (1.1-2.2); Bilirubin,Direct 0.2 mg/dL (0.0-0.5); Bilirubin,Indirect 0.2 mg/dL (0.0-1.2); Bilirubin,Total 0.4 mg/dL (0.2-1.2); Globulin 4.5 g/dL (2.4-3.5); Total Protein 7.3 g/dL (6.0-8.3)
--- NOTE | 2017-04-08 18:32 | Internal Med Progress Note ---
Date of Encounter: 04/08/17 Time of Encounter: 16:00 - Assessment and plan (1) Intractable nausea and vomiting Current Visit: Yes Status: Acute Assessment and plan: Seen by GI today. EGD in AM. Qualifiers: Vomiting type: unspecified Qualified Code(s): R11.2 - Nausea with vomiting , unspecified (2) Dehydration Current Visit: Yes Status: Resolved (3) Hyperglycemia Current Visit: No Status: Chronic (4) HTN (hypertension) Current Visit: Yes Status: Chronic Qualifiers: Hypertension type: essential hypertension Qualified Code(s): I10 - Essential (primary) hypertension (5) Gastroparesis Current Visit: No Status: Chronic (6) ESRD (end stage renal disease) on dialysis Current Visit: No Status: Chronic - Subjective Interval history: No complaints, no acute events. - Constitutional Vitals: Temp Pulse Resp BP Pulse Ox 99.3 F 93 17 159/81 97 04/08/17 18:07 04/08/17 15:21 04/08/17 15:21 04/08/17 15:21 04/08/17 15:21 Exam: General appearance: Present: severe distress, answers questions appropriately Exam: - Head Head exam: Present: normal inspection - Respiratory Respiratory exam: Present: CTAB. Absent: accessory muscle use, chest wall tenderness, rales, rhonchi, wheezes - Cardiovascular Cardiovascular exam: Present: RRR, +S1, +S2. Absent: diastolic murmur, gallop, rubs, systolic murmur - GI/Abdominal GI/Abdominal exam: Present: normal bowel sounds, soft, + tenderness, no peritoneal signs. 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 Patient has a diabetic ulcer on her left foot. - Skin Skin exam: Present: dry. Absent: diaphoretic, rash Internal Medicine: Result - Labs CBC & Chem 7: 04/08/17 04:52 04/08/17 04:52 Labs: Short CBC 04/08/17 Range/Units 04:52 WBC 4.8 (4.3-11.1) K/mcL Hgb 8.9 L (11.5-15.4) g/dL Hct 27.9 L (35.3-44.9) % Plt Count 209 (140-400) K/mcL Neutrophils # 3.3 (1.6-8.9) K/mcL BMP 04/08/17 04:52 Sodium 133 L Potassium 4.4 Chloride 96 L Carbon Dioxide 25 BUN 34 H D Creatinine 5.54 H Glucose 210 H Calcium 9.3 Liver Function 04/08/17 Range/Units 15:35 Total Bilirubin 0.4 (0.2-1.2) mg/dL Direct Bilirubin 0.2 (0.0-0.5) mg/dL AST 10 (5-34) Units/L ALT 7 (0-55) Units/L Alkaline Phosphatase 101 (38-126) Units/L Albumin 2.8 L (3.5-5.0) g/dL Consult Discharge Plan - Plan Referrals: Colt Espinoza MD [Primary Care Provider] -
[2017-04-08] MEDS: Venlafaxine XR (24 HR) 37.5 MG CAP.ER.24H PO SCH (20:03)
[2017-04-08] MEDS ORDERED: Insulin DETEMIR 100 UNIT/ML X5UNITS SQ SCH (21:00)
[2017-04-09] MEDS: *HR* Heparin 5,000 UNIT/ML VIAL SQ SCH ×2 (05:38→17:25)
[2017-04-09] MEDS: Sucralfate 1 GM TABLET PO SCH ×3 (07:49→14:49)
[2017-04-09] MEDS: Lisinopril 20 MG TABLET PO SCH (07:56)
[2017-04-09] MEDS: Aspirin 81 MG TAB.CHEW PO SCH (07:57)
[2017-04-09] MEDS: Insulin LISPRO 300 UNITS/3 ML VIAL SQ SCH ×3 (07:57→16:42)
[2017-04-09] MEDS ORDERED: *HR* Heparin 10,000 UNIT/10 ML VIAL IV PRN (08:05)
[2017-04-09] MEDS ORDERED: 0.9 % Sodium Chloride 250 ML IVC PRN (08:05)
[2017-04-09 08:12] LABS: Basophils % 0.5 %; Eosinophils # 0.2 K/mcL (0.0-0.6); Eosinophils % 5.1 %; Hematocrit 28.4 % (35.3-44.9); Hemoglobin 8.6 g/dL (11.5-15.4); Immature Granulocytes % 0.3 % (0-4); Lymphocytes # 0.4 K/mcL (0.6-4.6); Lymphocytes % 9.8 %; Mean Corpuscular HGB Conc 30.3 g/dL (31.6-35.5); Mean Corpuscular Hemoglobin 27.4 pg (28.0-33.3); Mean Corpuscular Volume 90.4 fL (83.0-100.0); Mean Platelet Volume 10.5 fL (9.4-12.4); Monocytes # 0.3 K/mcL (0.0-1.3); Monocytes % 9.2 %; Neutrophils # 2.8 K/mcL (1.6-8.9); Platelet Count 167 K/mcL (140-400); Red Blood Count 3.14 M/mcL (3.82-4.97); Red Cell Distribution Width 15.6 % (11.5-14.5); Segmented Neutrophils % 75.1 %
[2017-04-09] MEDS ORDERED: 0.9 % Sodium Chloride 1,000 ML PRIME SCH (08:15)
[2017-04-09 08:25] LABS: Calcium 8.9 mg/dL (8.6-10.8)
[2017-04-09 08:26] LABS: Potassium 5.8 mEq/L (3.5-4.5)
--- NOTE | 2017-04-09 09:43 | Nephrology Progress Note ---
Date of Encounter: 04/09/17 Time of Encounter: 09:00 - Assessment and Plan (1) ESRD (end stage renal disease) on dialysis Current Visit: No Status: Chronic Continues to have GI issues. GI consulted, scheduled for EGD today. Respiratory issue resolved. HD today, keeping MWF schedule. Orders given. (2) Gastroparesis Current Visit: No Status: Chronic Subjective Interval history: Sleeping, arouses easily. States had rough night with nausea. Scheduled for EGD today. Objective - Vital Signs Vital signs: Vital Signs Temp Pulse Resp BP Pulse Ox 04/09/17 06:46 98.2 F 82 18 169/92 96 04/09/17 04:03 98.4 F 82 16 161/82 94 04/08/17 23:46 98.6 F 91 16 189/95 92 04/08/17 19:15 98.3 F 89 16 165/70 98 04/08/17 18:07 99.3 F 04/08/17 15:21 100.2 F H 93 17 159/81 97 04/08/17 12:11 98.5 F 94 17 132/79 95 04/08/17 10:00 182/92 Intake and Output 04/08/17 04/09/17 04/09/17 23:59 07:59 15:59 Intake Total 360 / 360 0 / 0 0 / 0 Balance 360 / 360 0 / 0 0 / 0 Intake: Oral 360 / 360 0 / 0 0 / 0 Other: Meal snack npo Percent of Meal Consumed 100% 0% Weight 91.557 kg Blood Glucose* 287 332 281 Patient Weight 04/09/17 23:59 Weight 91.557 kg - General Appearance General appearance: Present: well-developed, well-nourished, appears started age EENT: Present: mucous membranes moist Neck: Present: no JVD Respiratory: Present: clear Cardiology: Present: no edema, regular rate, regular rhythm Gastrointestinal: Present: normoactive bowel sounds, no guarding Integumentary: Present: warm and dry Neurologic: Present: alert and oriented x3 Psychiatric: Present: mood/affect appropriate, cooperative - Lab 04/09/17 07:54 04/09/17 07:54 Most recent lab results Calcium 8.9 mg/dL (8.6-10.8) 04/09/17 07:54 Phosphorus 6.3 mg/dL (2.3-4.7) H 04/06/17 14:12 Magnesium 1.9 mg/dL (1.6-2.6) 04/06/17 14:12 Consult Discharge Plan - Plan Referrals: Colt Espinoza MD [Primary Care Provider] - 04/15/17 8:30 am (Please follow as schedule...)
[2017-04-09] MEDS ORDERED: *HR* Promethazine 25 MG/ML VIAL ONE (09:54)
--- NOTE | 2017-04-09 10:01 | Anesthesia Evaluation PreOp ---
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 HX Other Medical History: Renal Anesthesia History: No Prior Anesthetic Complications Alcohol Use: none Drug use: none Medications and Allergies Aspirin 81 mg PO DAILY #30 tab.chew 12/22/15 [Rx] HYDROcodone/Acet 10/325 mg [[place] 10-325 mg] 1 tab PO QID PRN 01/21/16 [History] Venlafaxine XR (24 HR) [Effexor XR] 37.5 mg PO HS 04/20/16 [History] Insulin ASPART [NovoLOG] 5 - 10 unit SQ TIDWM 04/21/16 [History] Clopidogrel [Plavix] 75 mg PO DAILY tablet 04/23/16 [Rx] Lisinopril [Zestril] 20 mg PO BID 60 Days tablet 11/13/16 [Rx] Carvedilol [Coreg] 25 mg PO BIDWM 01/23/17 [History] CloNIDine Patch [Catapres-Tts] 0.2 mg TD QWEEK 01/23/17 [History] Insulin DETEMIR [Levemir] 60 - 80 unit SQ HS 01/23/17 [History] Acetaminophen [Tylenol] 650 mg PO Q6HR PRN tab 01/30/17 [Rx] Omeprazole [PriLOSEC] 20 mg PO BIDAC #60 cap 01/30/17 [Rx] Colesevelam HCl [Welchol] 625 mg PO TID 04/06/17 [History] 3 Allergy/AdvReac Type Severity Reaction Status Date / Time Amoxicillin Allergy Hives Verified 04/06/17 16:20 metoclopramide [From Reglan] AdvReac Shakiness Verified 04/06/17 16:20 ondansetron AdvReac Vomiting Verified 04/06/17 16:20 [From Zofran (as hydrochloride)] - Meds/Allergy Pre-op Review Medications Reviewed: Yes Allergies Reviewed: Yes Beta Blockers on Current Med List: No Anesthesia Results - Labs 04/09/17 07:54 04/09/17 07:54 Anesthesia Exam Vital Signs/O2 Sat/Glucose, Most Recent Temp Pulse Resp BP Pulse Ox 98.2 F 82 18 169/92 96 04/09/17 06:46 04/09/17 06:46 04/09/17 06:46 04/09/17 06:46 04/09/17 06:46 Blood Glucose* 281 Height: 1.73 Weight: 92 NPO (# of Hours): 8 - HEENT Pupil (Motor): Pupils equal Mallampati: II Oral Opening: Greater than 3 - 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
--- NOTE | 2017-04-09 10:11 | Anesthesia Evaluation Post Op ---
Date of Encounter: 04/09/17 Time of Encounter: 10:11 - Vital Signs Vital Signs: vss - Lungs Lungs: Rhonchi - Airway Airway: Non-obstructed - Cardiovascular Baseline Rhythm - Mental Status Mental Status: Asleep with brisk response to light stimulation - Pain Pain Scale used: Jeffrey (Faces) - Nausea Vomiting Nausea Vomiting: Not Present - Discharge PostOp Status: Transfer Patient to floor
[2017-04-09] MEDS: Prochlorperazine 10 MG/2 ML VIAL IVP PRN (10:33)
--- NOTE | 2017-04-09 12:43 | Discharge Summary ---
Date of Encounter: 04/09/17 Time of Encounter: 12:28 - Discharge Diagnosis (1) Intractable nausea and vomiting Priority: Primary Status: Acute Qualifiers: Vomiting type: unspecified Qualified Code(s): R11.2 - Nausea with vomiting , unspecified (2) Dehydration Priority: Secondary Status: Resolved (3) Hyperglycemia Priority: Secondary Status: Chronic (4) HTN (hypertension) Priority: Secondary Status: Chronic Qualifiers: Hypertension type: essential hypertension Qualified Code(s): I10 - Essential (primary) hypertension (5) Gastroparesis Priority: Secondary Status: Chronic (6) ESRD (end stage renal disease) on dialysis Priority: Secondary Status: Chronic - Discharge Medications Prescriptions: Sucralfate [Carafate] 1 gm PO QIDAC #60 tablet Home Medications: Aspirin 81 mg PO DAILY #30 tab.chew 12/22/15 [Rx] HYDROcodone/Acet 10/325 mg [[place] 10-325 mg] 1 tab PO QID PRN 01/21/16 [History] Venlafaxine XR (24 HR) [Effexor XR] 37.5 mg PO HS 04/20/16 [History] Insulin ASPART [NovoLOG] 5 - 10 unit SQ TIDWM 04/21/16 [History] Clopidogrel [Plavix] 75 mg PO DAILY tablet 04/23/16 [Rx] Lisinopril [Zestril] 20 mg PO BID 60 Days tablet 11/13/16 [Rx] Carvedilol [Coreg] 25 mg PO BIDWM 01/23/17 [History] CloNIDine Patch [Catapres-Tts] 0.2 mg TD QWEEK 01/23/17 [History] Insulin DETEMIR [Levemir] 60 - 80 unit SQ HS 01/23/17 [History] Acetaminophen [Tylenol] 650 mg PO Q6HR PRN tab 01/30/17 [Rx] Omeprazole [PriLOSEC] 20 mg PO BIDAC #60 cap 01/30/17 [Rx] Colesevelam HCl [Welchol] 625 mg PO TID 04/06/17 [History] Sucralfate [Carafate] 1 gm PO QIDAC #60 tablet 04/09/17 [Rx] Allergies/Adverse Reactions: 3 Allergy/AdvReac Type Severity Reaction Status Date / Time Amoxicillin Allergy Hives Verified 04/06/17 16:20 metoclopramide [From Reglan] AdvReac Shakiness Verified 04/06/17 16:20 ondansetron AdvReac Vomiting Verified 04/06/17 16:20 [From Zofran (as hydrochloride)] Date of admission: 04/06/17 23:42 Primary care physician: Colt Espinoza MD Consults: 04/07/17 08:30 Consult to Dialysis [CONS] ONCE 04/07/17 12:54 Consult to Gastroenterology [CONS] Routine Consulting Provider: Gastroenterology [place] Reason for Consult: Intractible N/V, abdominal pain. Call Completed: Yes 04/07/17 13:45 Consult to Wound Care [CONS] Routine Reason for Consult: Cyst on [place], L. ankle trauma, and elbow. Time Notified: 14:01 Call Completed: Yes 04/09/17 08:15 Consult to Dialysis [CONS] ONCE Discharging clinician: Edmar Mcclure - Patient Status Disposition: Home Health Service Condition: Fair Functional capacity at discharge: wheelchair bound Overall status at discharge: patient is progressing back to baseline - Discharge Instructions Follow Up With: Colt Espinoza MD [Primary Care Provider] - 04/15/17 8:30 am (Please follow as schedule...) - Diet and Activity Activity: resume usual activities as tolerated Diet: advance to your usual diet Interval History: Ms. Benavidez is a 36 year old female with a past medical history of coronary artery disease, diabetes, renal disease, and hypertension who presented to the emergency department with the chief complaint of nausea, vomiting, and abdominal pain of 2 weeks' duration. Patient says that she has had these issues multiple times in the past. She has been seen several times this year alone for similar complaints. Patient states that she has been vomiting any time she has attempted to eat anything for the last 2 weeks. She is even unable to keep down ice chips. Patient admits to vomiting approximately 10 times today, and has vomited anywhere between 5-10 times per day in the last 2 weeks. Consistency and appearance of her vomit depends on what she ate. She states that she has had several EGD studies done in the past, and that they have revealed the presence of both yeast and rotten food in her stomach. She also complains of diffuse abdominal pain. She describes this pain as a constant ache, rated 5 out of 10, non-radiating, with no exacerbations or remissions. The pain is not improved with vomiting. Patient's issues with abdominal pain of been going on for the past 3 years, and patient's vomiting and nausea have been on and off for the last year. Patient also admits to having some difficulty swallowing. This happens with both solids and liquids. Patient does not have any pain with swallowing, although whenever she tries to swallow a piece of food, she feels that it gets stuck in the lower portion of her neck. She states that she usually has to take a culprit of water in order to keep her food down. Patient is a dialysis patient, who normally receives dialysis on Wednesday, Wednesday, and Wednesday. Patient claims to be compliant with dialysis. However, patient admits that she has not been taking hypertension medications regularly. Has not been compliant with her hypertension medications. She denies any fever, chills, chest pain, abdominal distention, diarrhea, and constipation. Hospital course: A CT of abdomen/pelvis was done in ED that showed no abnormalities. Patient stated she had relief from Dilaudid only. She did receive a few doses of IV Dilaudid but was discontinued as patient known to have gastroparesis. She showed signs of dehydration and was given IV fluids. Her dehydration improved. Placed on Reglan 10 mg every 6 hours but she refused stating it does not help. Her hypertension her home medications were resumed and her blood pressure improved. Her glucose on arrival was 526. She was placed on basal insulin with sliding scale. Patient's nausea did not improve despite Zofran and IV Compazine. GI was consulted as she is known to Dr. Gonzales's group. She had endoscopy done on 04/09 which showed severe gastroparesis, esophagitis, bleeding, erythematous mucosa without bleeding. Noted that there was some poor visualization of the stomach because there was a large amount of old food in the stomach which covered 50% of the stomach mucosa but did appreciate a normal duodenum. GI reccomended continuing current medications. Was also recommended that she has 6 small meals per day with management of underlying anxiety and vomiting and avoiding medication such as narcotics medications. She was discharged home in stable condition. She was continued on [place] because this is a chronic medication for her and would like to avoid opiate withdrawal. Discussed to patient that opiates are worsening symptoms. She currently takes [place] regularly as a home medication. To avoid opiate withdrawal, she will be discharged home and to continue these medications. However, it is recommended she taper this as much as possible to improve gastroparesis. - Time Spent with Patient Total time spent providing and/or coordinating discharge services: - Constitutional Vitals: Temp Pulse Resp BP Pulse Ox 97.6 F 78 18 163/89 93 04/09/17 11:02 04/09/17 11:02 04/09/17 11:02 04/09/17 11:02 04/09/17 11:02 General appearance: Present: severe distress, answers questions appropriately Exam: General appearance: Present: agitated, answers questions appropriately Exam: - Head Head exam: Present: normal inspection - Respiratory Respiratory exam: Present: CTAB. Absent: accessory muscle use, chest wall tenderness, rales, rhonchi, wheezes - Cardiovascular Cardiovascular exam: Present: RRR, +S1, +S2. Absent: diastolic murmur, gallop, rubs, systolic murmur - GI/Abdominal GI/Abdominal exam: Present: normal bowel sounds, soft, + tenderness, no peritoneal signs. 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 Patient has a diabetic ulcer on her left foot. - Skin Skin exam: Present: dry. Absent: diaphoretic, rash
--- NOTE | 2017-04-09 13:07 | Physician Discharge Referral ---
Home Health/Hosp Referral Info Transfer to: Home Health Provider in Charge Post Discharge: PCP - Diagnosis (1) Intractable nausea and vomiting Priority: Primary Status: Acute (2) Dehydration Priority: Secondary Status: Resolved (3) Hyperglycemia Priority: Secondary Status: Chronic (4) HTN (hypertension) Priority: Secondary Status: Chronic (5) Gastroparesis Priority: Secondary Status: Chronic (6) ESRD (end stage renal disease) on dialysis Priority: Secondary Status: Chronic - Respiratory Orders Smoking Cessation: Smoking cessation has been advised. For more information, call the [place] [email or web address] Quit Line at 6-603-XNJY-NOW. - Diet/Nutrition Diet/Nutrition Orders: Renal - Activity Activity Orders: Chair - Services Needed Following services are medically necessary services: Nursing - Transfer Medications Prescriptions: Sucralfate [Carafate] 1 gm PO QIDAC #60 tablet Home Medications: Aspirin 81 mg PO DAILY #30 tab.chew 12/22/15 [Rx] HYDROcodone/Acet 10/325 mg [[place] 10-325 mg] 1 tab PO QID PRN 01/21/16 [History] Venlafaxine XR (24 HR) [Effexor XR] 37.5 mg PO HS 04/20/16 [History] Insulin ASPART [NovoLOG] 5 - 10 unit SQ TIDWM 04/21/16 [History] Clopidogrel [Plavix] 75 mg PO DAILY tablet 04/23/16 [Rx] Lisinopril [Zestril] 20 mg PO BID 60 Days tablet 11/13/16 [Rx] Carvedilol [Coreg] 25 mg PO BIDWM 01/23/17 [History] CloNIDine Patch [Catapres-Tts] 0.2 mg TD QWEEK 01/23/17 [History] Insulin DETEMIR [Levemir] 60 - 80 unit SQ HS 01/23/17 [History] Acetaminophen [Tylenol] 650 mg PO Q6HR PRN tab 01/30/17 [Rx] Omeprazole [PriLOSEC] 20 mg PO BIDAC #60 cap 01/30/17 [Rx] Colesevelam HCl [Welchol] 625 mg PO TID 04/06/17 [History] Sucralfate [Carafate] 1 gm PO QIDAC #60 tablet 04/09/17 [Rx] Allergies/Adverse Reactions: 3 Allergy/AdvReac Type Severity Reaction Status Date / Time Amoxicillin Allergy Hives Verified 04/06/17 16:20 metoclopramide [From Reglan] AdvReac Shakiness Verified 04/06/17 16:20 ondansetron AdvReac Vomiting Verified 04/06/17 16:20 [From Zofran (as hydrochloride)] Certification: Further, I certify that my clinical findings support that this patient is homebound (i.e. absences from home require considerable and taxing effort and are for medical reasons or mandaen services or infrequently or short duration when for other reasons) because: Homebound Reason: Patient requires assistance of a person or device to safely leave home, Post-surgery restriction and or conditions limit ability to leave home Attestation: My signature below is to certify that this patient is under my care and that I, or nurse practitioner, or a physician's care team assistant working with me, has a face-to -face encounter with this patient.
[2017-04-09 17:52] VITALS: BP 158/82
[2017-04-09] MEDS ORDERED: 0.9 % Sodium Chloride 1,000 ML ONE (17:56)
[2017-04-09] MEDS ORDERED: *HR* Propofol 200 MG/20 ML VIAL IVP ONE (18:21)
== END 2017-04-09 18:22 | disposition home health service (06) | DRG 73 ==
LOC: EMEROO 12:27 → 2ANU 12:27 → SUATTDRO 23:42
PROVIDERS: ADMIT Internal Medicine; ATTEND Student in an Organized Health Care Education/Training Program
PROC: ENDOORB (2017-04-09 10:00)

== ENCOUNTER 2017-05-10 12:36 | Inpatient (IN) ==
[2017-05-10] MEDS ORDERED: cloNIDine HCl 0.1 MG TABLET PO ONE (12:54)
[2017-05-10] MEDS ORDERED: *HR* FentaNYL (PF) 100 MCG/2 ML VIAL IVP ONE (13:05)
--- NOTE | 2017-05-10 13:17 | Emergency Department Note ---
Disposition Clinical Impression: Hypertensive urgency, Elevated troponin Altered mental status Qualifiers: Altered mental status type: unspecified Qualified Code(s): R41.82 - Altered mental status, unspecified CKD (chronic kidney disease) Qualifiers: Chronic kidney disease stage: unspecified stage Qualified Code(s): N18.9 - Chronic kidney disease, unspecified Disposition: Admitted As Inpatient Altered Mental Status HPI - General Chief Complaint: ED Altered Mental Status Stated Complaint: AMS Time Seen by Provider: 05/10/17 12:37 Source: EMS Mode of arrival: EMS Limitations: altered mental status Nursing Notes Reviewed: Yes Vital Signs Reviewed: Yes - History of Present Illness HPI Narrative: 36-year-old female history of diabetes, ESRD on dialysis, hypertension who presents to the ER due to altered mental status. Patient was at dialysis this morning. Initial report was that they were called for facial paresthesias and nausea and vomiting. However the patient tells me that she is altered. On the room she is able to answer some questions but not all. She is alert and oriented 3 and tearful on exam. Noted to be profoundly hypertensive of around 220 systolic over 110 diastolic. Prior history of poorly controlled hypertension that I reviewed in her chart. She currently complains of pain all over. MD complaint: altered mental status Onset (ago): unknown Context: other (ESRD) Associated symptoms: Reports: chest pain. Denies: fever, nausea/vomiting - Related Data Home Medications Medication Instructions Recorded Confirmed HYDROcodone/Acet 10/325 mg [[place] 1 tab PO QID PRN 01/21/16 04/27/17 10-325 mg] Insulin ASPART [NovoLOG] 5 - 10 unit SQ TIDWM PRN 04/21/16 04/27/17 Carvedilol [Coreg] 25 mg PO BIDWM 01/23/17 04/27/17 CloNIDine Patch [Catapres-Tts] 0.2 mg TD QWEEK 01/23/17 04/27/17 Insulin DETEMIR [Levemir] 60 - 80 unit SQ HS 01/23/17 04/27/17 Colesevelam HCl [Welchol] 625 mg PO TID 04/06/17 04/06/17 Previous Rx's Medication Instructions Recorded Clopidogrel [Plavix] 75 mg PO DAILY tablet 04/23/16 Lisinopril [Zestril] 20 mg PO BID 60 Days tablet 11/13/16 Allergies Allergy/AdvReac Type Severity Reaction Status Date / Time Amoxicillin Allergy Hives Verified 05/10/17 18:16 metoclopramide [From Reglan] AdvReac Shakiness Verified 05/10/17 18:16 ondansetron AdvReac Vomiting Verified 05/10/17 18:16 [From Zofran (as hydrochloride)] All systems ED: reviewed and negative except as stated. Constitutional: Denies: fever Cardiovascular: Reports: chest pain Respiratory: Reports: dyspnea Gastrointestinal: Reports: abdominal pain. Denies: nausea, vomiting, diarrhea Genitourinary: Denies: dysuria, hematuria Neurological: Reports: paresthesias. Denies: headache Past Medical History - Past Medical History Attestation: Yes The following information was validated with the patient. Source: patient, old records reviewed Medical history: Reports: coronary artery disease, diabetes, dialysis, hypertension, renal disease Surgical history: Reports: angioplasty/stent, hip replacement, hysterectomy, other Psychiatric history: Reports: anxiety, depression YOUTH ADVOCATE history: Reports: no YOUTH ADVOCATE history, other - Social History Smoking Status: Former smoker Smokeless Tobacco Status: No Alcohol use: Reports: none Drug use: Reports: none Physical Exam - General Limitations: altered mental status General appearance: alert, anxious - Head Head exam: atraumatic, normocephalic - Eye Eye exam: Present: normal appearance, EOMI - ENT ENT exam: normal exam - Neck Neck exam: Present: normal inspection - Chest Chest inspection: Present: normal inspection, symmetric chest wall rise - Respiratory Respiratory exam: Present: normal lung sounds bilaterally - Cardiovascular Cardiovascular exam: Present: regular rate, normal rhythm, normal heart sounds - Abdominal Exam Abdominal exam: Present: soft, tenderness (Diffuse mild tenderness to palpation. Nonrigid, no guarding.) - Extremities Exam Extremities exam: Present: normal inspection, full ROM - Expanded Upper Extremity Exam Shoulder exam: Present: normal inspection, full ROM Arm exam: Present: normal inspection, full ROM Elbow exam: Present: normal inspection, full ROM Forearm/Wrist exam: Present: normal inspection, full ROM Hand exam: Present: normal inspection, full ROM Vascular exam: Normal: radial pulse - Expanded Lower Extremity Exam Hip/Pelvis exam: Present: normal inspection, full ROM Upper leg exam: Present: normal inspection, full ROM Knee exam: Present: normal inspection, full ROM Lower leg exam: Present: normal inspection, full ROM, other (Right BKA) Ankle exam: Present: normal inspection, full ROM Foot/toe exam: Present: normal inspection, full ROM, other (Left foot partial amputation) - Neurological Exam Neurological exam: Present: alert, oriented X3, other (GCS 15. She moves all extremities equally. She is unable to fully comply with the exam but does report some paresthesias of her upper extremities.) Course Course Narrative: Patient seen and examined. She has abdominal pain here which is chronic for her with a history of gastroparesis. She is profoundly hypertensive which we will correct starting with clonidine. We will also obtain a CT scan of her head as well as labs and urinalysis. - Reevaluation(s) Reevaluation #1: Patient refuses to lay flat for CT scan. We pulled her milligram of Dilaudid to get to the patient for comfort during the scan. However she was unable to lay flat so she was brought back. She appears drowsy upon arrival and was not given the Dilaudid. Reevaluation #2: Patient was crying out. Upon arrival into the room she is tearful. Nursing reports she was trying to put her hand down her throat to induce vomiting and would not use it emesis bags that she would vomit on herself. Ativan, Haldol ordered. Reevaluation #3: CT scan with no acute findings. There is concern for low attenuation and recommended MRI. Order placed at the request of the hospitalist. Vital Signs Temperature 98.5 F 05/10/17 12:42 Pulse Rate 83 05/10/17 12:42 Respiratory Rate 18 05/10/17 12:42 Blood Pressure 196/117 05/10/17 12:42 O2 Sat by Pulse Oximetry 97 05/10/17 12:42 Temperature 98.2 F 05/10/17 19:11 Pulse Rate 81 05/10/17 18:42 Respiratory Rate 16 05/10/17 18:42 Blood Pressure 219/109 05/10/17 18:42 O2 Sat by Pulse Oximetry 97 05/10/17 18:42 Oxygen Delivery Oxygen Delivery Nasal Cannula Altered Mental Status - MDM Narrative Medical decision making narrative: 36-year-old female with history of dialysis-dependent ESRD and poorly controlled hypertension presents to the ER due to altered mental status. Profoundly hypertensive here. She is alert and oriented 3 and moves all extremities equally. She is tearful and anxious on exam. Patient was treated with clonidine as well as labetalol with mild improvement of her hypertension. CT scan shows no acute abnormalities with recommendation for MRI given abnormal findings. Creatinine is at baseline. Troponin of 0.17 which is also around her baseline. EKG shows no acute changes from prior. Admitted to the hospitalist service for altered mental status, hypertensive urgency. - Lab Data Lab results reviewed: Yes I reviewed the patient's lab results. Result diagrams: 05/10/17 15:33 05/10/17 14:58 Lab Results 05/10/17 05/10/17 05/10/17 Range/Units 14:58 14:58 14:58 WBC (4.3-11.1) K/mcL RBC (3.82-4.97) M/mcL Hgb (11.5-15.4) g/dL Hct (35.3-44.9) % MCV (83.0-100.0) fL MCH (28.0-33.3) pg MCHC (31.6-35.5) g/dL RDW (11.5-14.5) % Plt Count (140-400) K/mcL MPV (9.4-12.4) fL Immature Gran % (0-4) % Seg Neutrophils % % Lymphocytes % % Monocytes % % Eosinophils % % Basophils % % Neutrophils # (1.6-8.9) K/mcL Lymphocytes # (0.6-4.6) K/mcL Monocytes # (0.0-1.3) K/mcL Eosinophils # (0.0-0.6) K/mcL Basophils # (0.0-0.2) K/mcL Immature Plt Fraction (1.1-6.1) % PT 11.9 (9.4-12.1) Seconds INR 1.1 APTT 35.1 (26.0-36.0) Seconds Sodium 134 L (136-145) mEq/L Potassium 4.9 H (3.5-4.5) mEq/L Chloride 95 L (98-109) mEq/L Carbon Dioxide 24 (19-29) mEq/L BUN 57 H (7-20) mg/dL Creatinine 6.35 H (0.57-1.11) mg/dL Est GFR ( Amer) 9 L (> 60) Est GFR (Non-Af Amer) 8 L (> 60) BUN/Creatinine Ratio 9 (6-26) Glucose 139 H (70-99) mg/dL Calculated Osmolality 296 (280-300) Calcium 9.4 (8.6-10.8) mg/dL Total Bilirubin 0.5 (0.2-1.2) mg/dL Direct Bilirubin 0.2 (0.0-0.5) mg/dL Indirect Bilirubin 0.3 (0.0-1.2) mg/dL AST 10 (5-34) Units/L ALT 6 (0-55) Units/L Alkaline Phosphatase 109 (38-126) Units/L Ammonia 36 (18-72) mcmol/L Troponin I (0-0.03) ng/mL B-Natriuretic Peptide (0-100) pg/mL Serum Total Protein 8.7 H (6.0-8.3) g/dL Albumin 3.1 L (3.5-5.0) g/dL Globulin 5.6 H (2.4-3.5) g/dL Albumin/Globulin Ratio 0.6 L (1.1-2.2) TSH 0.384 (0.350-4.840) mcIU/mL Ethyl Alcohol < 10 (0-10) mg/dL 05/10/17 05/10/17 05/10/17 Range/Units 14:58 14:58 15:33 WBC 8.7 (4.3-11.1) K/mcL RBC 3.92 (3.82-4.97) M/mcL Hgb 10.8 L (11.5-15.4) g/dL Hct 33.4 L (35.3-44.9) % MCV 85.2 (83.0-100.0) fL MCH 27.6 L (28.0-33.3) pg MCHC 32.3 (31.6-35.5) g/dL RDW 15.5 H (11.5-14.5) % Plt Count 242 (140-400) K/mcL MPV 10.5 (9.4-12.4) fL Immature Gran % 0.5 (0-4) % Seg Neutrophils % 82.7 % Lymphocytes % 6.4 % Monocytes % 5.8 % Eosinophils % 4.3 % Basophils % 0.3 % Neutrophils # 7.2 (1.6-8.9) K/mcL Lymphocytes # 0.6 (0.6-4.6) K/mcL Monocytes # 0.5 (0.0-1.3) K/mcL Eosinophils # 0.4 (0.0-0.6) K/mcL Basophils # 0.0 (0.0-0.2) K/mcL Immature Plt Fraction 4.9 (1.1-6.1) % PT (9.4-12.1) Seconds INR APTT (26.0-36.0) Seconds Sodium (136-145) mEq/L Potassium (3.5-4.5) mEq/L Chloride (98-109) mEq/L Carbon Dioxide (19-29) mEq/L BUN (7-20) mg/dL Creatinine (0.57-1.11) mg/dL Est GFR ( Amer) (> 60) Est GFR (Non-Af Amer) (> 60) BUN/Creatinine Ratio (6-26) Glucose (70-99) mg/dL Calculated Osmolality (280-300) Calcium (8.6-10.8) mg/dL Total Bilirubin (0.2-1.2) mg/dL Direct Bilirubin (0.0-0.5) mg/dL Indirect Bilirubin (0.0-1.2) mg/dL AST (5-34) Units/L ALT (0-55) Units/L Alkaline Phosphatase (38-126) Units/L Ammonia (18-72) mcmol/L Troponin I 0.17 H* (0-0.03) ng/mL B-Natriuretic Peptide 2664 H (0-100) pg/mL Serum Total Protein (6.0-8.3) g/dL Albumin (3.5-5.0) g/dL Globulin (2.4-3.5) g/dL Albumin/Globulin Ratio (1.1-2.2) TSH (0.350-4.840) mcIU/mL Ethyl Alcohol (0-10) mg/dL - Radiology Data Radiology results reviewed: Yes I reviewed the patient's radiology results. Chest X-Ray 05/10/17 12:51 IMPRESSION: Improved pulmonary edema pattern since the previous exam. D/ / Zach Adame MD / Zach Adame MD Interpreting Provider: Zach Adame MD Head CT 05/10/17 12:51 IMPRESSION: No acute intracranial abnormality. There is continued evidence of periventricular low-attenuation, greatest in the left frontal region. Some volume loss is suggested in that location as well. If MRI has not already been performed, that would be recommended to better evaluate this in this relatively young patient D/ / Adryan Noe MD / Adryan Noe MD Interpreting Provider: Adryan Noe MD - EKG Data EKG attestation: Yes I reviewed and interpreted this EKG. EKG results narrative: EKG demonstrates sinus rhythm with a rate of 81 bpm. Normal axis. Normal intervals. Poor R-wave progression. T-wave inversions in lead 1, aVL unchanged from prior EKG. Slight less than [address] depressions in leads V5 and V6 unchanged from previous EKG. No gross ST elevations. No significant changes from previous EKG dated 04/06/17. S.B.A.R. - S.B.A.R. Situation: Demographics, MOA Background: Presenting Complaint, Relevant PMH, Meds, & Allergies Assessment: Vital Signs, Course and respsone to treatment, Exam Concerns, Patient/Family Expectation, Pertinant Lab Results Recommendation: Barrier(s) to disposition, Recommendation based on pending studies, treatments, or consults S.B.A.R. Report Given to: Dr. Anaya Grewal Repor Time: 17:23 (Request MRI) Attestation Statement - Attestation Attestation: I, Abad Kenny, examined this patient and my medical decision-making was reviewed with the LATEX DIPPER/PA/Advanced Practice Nurse/Resident Physician. I agree with the documented findings, disposition and treatment plan as described except to the extent set forth below. 36-year-old female presents emergency Department with multiple complaints. Patient states that she has been consistently attending her dialysis sessions, today she was having dialysis and developed pain to her right ribs. She then started to become very anxious and had tingling to her bilateral upper and lower extremities and states that she was initially unable to move any of her extremities for multiple minutes. Patient also states that she had paresthesias to the bilateral lower face. Patient is able to move all extremities during evaluation the emergency department. Patient also concerned about altered mental status, she intermittently refuses to answer questions during the evaluation. It is unclear if this is secondary to lack of effort with the examination or if patient is having true altered mental status. Patient complains of abdominal pain however she also states that this has been present multiple times in the past and he has been worked up for gastroparesis many times in the past. EKG shows normal sinus rhythm with a rate of 81 with T- wave inversions and leads 1 and aVL that are unchanged from previous EKG. She also has ST depression in V5 V6 which is slightly worse than previous EKG. She does have elevated troponin however this is been elevated multiple times in the past. Patient had significantly elevated blood pressure in the emergency department required labetalol 2 bring to a manageable level. Patient states that she has a clonidine patch that was placed greater than 1 week ago. Patient will be admitted to the hospital for further care and evaluation regarding troponin and her altered mental status.
[2017-05-10] MEDS ORDERED: *HR* Promethazine 25 MG/ML VIAL IVP ONE (13:53)
[2017-05-10] MEDS ORDERED: *HR* HYDROmorphone (PF) 1 MG/ML SYRINGE ONE (14:32)
[2017-05-10] MEDS ORDERED: Prochlorperazine 10 MG/2 ML VIAL IVP ONE (14:53)
[2017-05-10 15:16] LABS: INR 1.1; Prothrombin Time 11.9 Seconds (9.4-12.1)
[2017-05-10 15:19] LABS: Activated Partial Thrombo Time 35.1 Seconds (26.0-36.0)
[2017-05-10] MEDS ORDERED: *HR* LORazepam 2 MG/ML VIAL IVP ONE ×3 (15:22→16:28)
[2017-05-10 15:23] LABS: Alanine Aminotransferase 6 Units/L (0-55); Albumin 3.1 g/dL (3.5-5.0); Alkaline Phosphatase 109 Units/L (38-126); Aspartate Amino Transferase 10 Units/L (5-34); Bilirubin,Direct 0.2 mg/dL (0.0-0.5); Blood Urea Nitrogen 57 mg/dL (7-20); Chloride 95 mEq/L (98-109); Potassium 4.9 mEq/L (3.5-4.5); Sodium 134 mEq/L (136-145)
[2017-05-10] MEDS ORDERED: *HR* Labetalol 20 MG/4 ML SYRINGE IVP ONE ×2 (15:26→17:52)
[2017-05-10] MEDS ORDERED: Haloperidol Lactate 5 MG/ML VIAL IM ONE (15:27)
[2017-05-10 15:34] LABS: Albumin/Globulin Ratio 0.6 (1.1-2.2); BUN/Creatinine Ratio 9 (6-26); Bilirubin,Indirect 0.3 mg/dL (0.0-1.2); Bilirubin,Total 0.5 mg/dL (0.2-1.2); Calcium 9.4 mg/dL (8.6-10.8); Carbon Dioxide 24 mEq/L (19-29); Globulin 5.6 g/dL (2.4-3.5); Glucose 139 mg/dL (70-99); Osmolality,Calculated 296 (280-300); Total Protein 8.7 g/dL (6.0-8.3); eGFR For African Americans 9 (> 60); eGFR For Non-African Americans 8 (> 60)
[2017-05-10 15:35] LABS: Ethanol < 10 mg/dL (0-10)
[2017-05-10] MEDS ORDERED: Haloperidol Lactate 5 MG/ML VIAL IVP ONE (15:42)
[2017-05-10 15:43] LABS: Thyroid Stimulating Hormone 0.384 mcIU/mL (0.350-4.840)
[2017-05-10 15:45] LABS: Basophils % 0.3 %; Eosinophils # 0.4 K/mcL (0.0-0.6); Eosinophils % 4.3 %; Hematocrit 33.4 % (35.3-44.9); Hemoglobin 10.8 g/dL (11.5-15.4); Immature Granulocytes % 0.5 % (0-4); Immature Platelets 4.9 % (1.1-6.1); Lymphocytes # 0.6 K/mcL (0.6-4.6); Lymphocytes % 6.4 %; Mean Corpuscular HGB Conc 32.3 g/dL (31.6-35.5); Mean Corpuscular Hemoglobin 27.6 pg (28.0-33.3); Mean Corpuscular Volume 85.2 fL (83.0-100.0); Mean Platelet Volume 10.5 fL (9.4-12.4); Monocytes # 0.5 K/mcL (0.0-1.3); Monocytes % 5.8 %; Neutrophils # 7.2 K/mcL (1.6-8.9); Platelet Count 242 K/mcL (140-400); Red Blood Count 3.92 M/mcL (3.82-4.97); Red Cell Distribution Width 15.5 % (11.5-14.5); Segmented Neutrophils % 82.7 %
[2017-05-10] MEDS ORDERED: CloNIDine Patch 0.2 MG PATCH (WEEKLY) TD STA (16:30)
[2017-05-10] MEDS ORDERED: CloNIDine Patch 0.2 MG PATCH (WEEKLY) TD SCH (16:30)
[2017-05-10] MEDS ORDERED: Nitroglycerin 25 MG/250 ML INFUS..BTL IVC ONE (19:44)
[2017-05-10] MEDS ORDERED: 0.9 % Sodium Chloride 1,000 ML ONE ×2 (19:45→21:02)
[2017-05-10] MEDS ORDERED: Naloxone 0.4 MG/ML INJ IVP PRN (19:53)
[2017-05-10] MEDS ORDERED: *HR* Dextrose 50 % in Water (Syg) 50 ML SYRINGE IVP PRN (20:07)
[2017-05-10] MEDS ORDERED: Dextrose Gel 15 GM PO PRN ×2 (20:07)
[2017-05-10] MEDS ORDERED: D5% in Water 1,000 ML IVC PRN (20:07)
--- NOTE | 2017-05-10 20:12 | Internal Med History&Physical ---
Date of Encounter: 05/10/17 Time of Encounter: 20:10 Assessment and Plan (1) Hypertensive emergency Current visit: No Status: Acute 1 patient has been experiencing elevated blood pressure systolic greater than 200 diastolic greater than 100. Also experiencing altered mental state elevated troponin. We will initiate patient on nicardipine drip with a goal of systolic 180 diastolic of 100. 2 did consult nephrology for dialysis (2) Acute encephalopathy Current visit: Yes Status: Acute Ensure that this is related to hypertensive crisis or the patient has received numerous sedating medications in the ER. CT of head with no acute intracranial abnormalities however there is evidence of periventricular low attenuation in the frontal region we will obtain MRI Neuro checks Aspiration precautions (3) Diabetes mellitus Current visit: No Status: Chronic 1 presently patient is nothing by mouth due to altered mental state. We will place on Accu-Cheks every 6 hours with sliding scale insulin Qualifiers: Diabetes mellitus type: type 2 Diabetes mellitus complication status: with kidney complications Diabetes mellitus complication detail: with chronic kidney disease Diabetes mellitus fpc insulin use: with compensation consulting manager use Chronic kidney disease stage: on chronic dialysis Qualified Code(s): E11.22 - Type 2 diabetes mellitus with diabetic chronic kidney disease; N18.6 - End stage renal disease; Z99.2 - Dependence on renal dialysis; Z99.2 - Dependence on renal dialysis; Z99.2 - Dependence on renal dialysis; N18.6 - End stage renal disease; N18.6 - End stage renal disease; N18.6 - End stage renal disease ; Z79.4 - prison (current) use of insulin; Z79.4 - prison (current) use of insulin; Z79.4 - prison (current) use of insulin; 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 However she does experience hypertensive emergency with blood pressure greater than 200/100. We will continue to trend troponins Continuous cardiac monitoring (5) CAD (coronary artery disease) Current visit: No Status: Chronic Patient does have a history of coronary artery disease with stent placement. We will continue with Plavix attempt to lower blood pressure with a goal systolic 180 Continuous cardiac monitoring Qualifiers: Coronary Disease-Associated Artery/Lesion type: [place] artery [place] vs. transplanted heart: [place] heart Associated angina: without angina Qualified Code(s): I25.10 - Atherosclerotic heart disease of [place] coronary artery without angina pectoris (6) ESRD (end stage renal disease) on dialysis Current visit: No Status: Chronic 1 patient did undergo 90 minutes of dialysis today. She receives dialysis Wednesday and Wednesday. We will consult nephrology Dr. Hilton 2 monitor intake output daily weights Continue with nicardipine drip to maintain systolic around 180 Internal Medicine - H&P: HPI Chief complaint: hypertension Admitted From: Emergency Dept Plans for Post Hospital Care: Home History of present illness: Ms. Benavidez is a 36 year old female past medical history of end-stage renal disease on dialysis Wednesday hypertension diabetes gastroparesis coronary artery disease with stents. Information is obtained from medical records due to patient's altered mental state according to records. Patient was at dialysis today received approximately 90 minutes of dialysis when she began to experience nausea vomiting as well as she felt "altered" she was transported to the ER for evaluation. According to ER notes upon presentation patient was alert and oriented 3 hours she was profoundly hypertensive with systolic greater than 220 diastolic 110. Upon review of chart patient does have poorly controlled hypertension patient was given several rounds of labetalol as well as clonidine with very slow response. She was also given several doses of Ativan and Haldol and fentanyl due to anxiety and pain. Troponin was elevated which seems throughout her baseline EKG with no acute changes from previous EKG CT scan shows no acute abnormalities however he was continued evidence of periventricular low attenuation greatest in the left frontal region recommended MRI She has been admitted for further workup and evaluation. Presently patient is stuporous, unable to follow directions or answer questions. Low pressure continues to be elevated with systolic greater than 200, greater than 100. Dr. Biggs is at bedside patient is to be transferred to [facility] and will be initiated on nicardipine drip with a goal blood pressure of 180/100 No acute intracranial abnormality. There is continued evidence of periventricular low-attenuation, greatest in the left frontal region. Some volume loss is suggested in that location as well. If MRI has not already been performed, that would be recommended to better evaluate this in this relatively young patient Past Med Surg Social Fam HX - Past Medical History Medical history: coronary artery disease, diabetes, dialysis, hypertension, renal disease Psychiatric history: anxiety, depression - Past Surgical History Surgical History: angioplasty/stent, hip replacement, hysterectomy, other - Social History Smoking Status: Former smoker Smokeless Tobacco Status: No Alcohol use: none Drug use: none - Family History Mother Adopted: No Family Member Ethnicity: Non- Living Status: Still Living Hx Family Cardiac Disorders: Yes (Father with coronary artery disease) Hx Family Respiratory Disorders: No Hx Family Cancer: Yes (Breast) Hx Family GI Disorders: No Hx Family Endocrine Disorder: Yes (Mother with dm) Hx Family Neuromuscular Disorders: No Hx Family Neurologic Disorders: No Hx Family HEENT Disorders: No Hx Family Autoimmune Disorders: No Internal Medicine - H&P: Meds HYDROcodone/Acet 10/325 mg [[place] 10-325 mg] 1 tab PO QID PRN 01/21/16 [History] Insulin ASPART [NovoLOG] 5 - 10 unit SQ TIDWM PRN 04/21/16 [History] Clopidogrel [Plavix] 75 mg PO DAILY tablet 04/23/16 [Rx] Lisinopril [Zestril] 20 mg PO BID 60 Days tablet 11/13/16 [Rx] Carvedilol [Coreg] 25 mg PO BIDWM 01/23/17 [History] CloNIDine Patch [Catapres-Tts] 0.2 mg TD QWEEK 01/23/17 [History] Insulin DETEMIR [Levemir] 60 - 80 unit SQ HS 01/23/17 [History] Colesevelam HCl [Welchol] 625 mg PO TID 04/06/17 [History] 3 Allergy/AdvReac Type Severity Reaction Status Date / Time Amoxicillin Allergy Hives Verified 05/10/17 18:16 metoclopramide [From Reglan] AdvReac Shakiness Verified 05/10/17 18:16 ondansetron AdvReac Vomiting Verified 05/10/17 18:16 [From Zofran (as hydrochloride)] ROS unobtainable: due to mental status All Systems PM: A 10-system review of systems was performed and is negative for pertinent findings except as documented above in the HPI. - Constitutional Vitals: Temp Pulse Resp BP Pulse Ox 98.2 F 81 16 219/109 97 05/10/17 19:11 05/10/17 18:42 05/10/17 18:42 05/10/17 18:42 05/10/17 18:42 General appearance: Present: A&O X 0 Exam: Patient is lethargic - Head Head exam: Present: atraumatic, normocephalic - Eye Eye exam: Present: PERRL, conjuntiva pink, sclera anicteric Pupils: Present: PERRL - Neck Neck exam general surgery: Present: supple, trachea midline. Absent: lymphadenopathy - Respiratory Respiratory exam: Present: CTAB. Absent: accessory muscle use, rales, rhonchi, wheezes - Cardiovascular Cardiovascular exam: Present: RRR, +S1, +S2. Absent: diastolic murmur, gallop, rubs, systolic murmur - GI/Abdominal GI/Abdominal exam: Present: normal bowel sounds, soft, no peritoneal signs. Absent: distended, tenderness - Extremities Exam Extremities exam: Present: warm, radial pulses palpable and symmetrical. Absent : calf tenderness, cyanotic, pedal edema - Neurological Exam Neurological exam: Present: altered. Absent: pronater drift, facial droop, speech deficit - Skin Skin exam: Present: dry, intact Internal Med - H&P Results - Labs CBC & Chem 7: 05/10/17 15:33 05/10/17 14:58 - EKG Data EKG shows normal: sinus rhythm - EKG Data Prior EKG available for review: yes When compared to previous EKG: there is no significant change - Diagnostic Studies Other Images Additional comments: Chest X-Ray 05/10/17 12:51 IMPRESSION: Improved pulmonary edema pattern since the previous exam. D/ / Zach Adame MD / Zach Adame MD Interpreting Provider: Zach Adame MD Head CT 05/10/17 12:51 IMPRESSION: No acute intracranial abnormality. There is continued evidence of periventricular low-attenuation, greatest in the left frontal region. Some volume loss is suggested in that location as well. If MRI has not already been performed, that would be recommended to better evaluate this in this relatively young patient D/ / Adryan Noe MD / Adryan Noe MD Interpreting Provider: Adryan Noe MD
[2017-05-10] MEDS: niCARdipine 40 MG/200 ML MLS IVC SCH (20:55)
--- NOTE | 2017-05-10 21:30 | Event Note ---
Date of Encounter: 05/10/17 Time of Encounter: 21:29 Patient standing around with nurse practitioner. Patient was sent to the emergency room because of severe hypertension and chest pain. Patients to press during our interview either related to hypertensive encephalopathy versus multiple opiates and sedated medications given in the emergency room. Transfer the patient start nicardipine drip. It is known that the patient is noncompliant with blood pressure medications. We will attempt to decrease blood pressure by around 15% 1st 8 hours. Keep target pressure 180/100. Serious troponin. The echocardiogram shows more pronounced lateral ST segment depression. Cardiology consultation.
[2017-05-11] MEDS ORDERED: Insulin LISPRO 300 UNITS/3 ML VIAL SQ SCH
[2017-05-11] MEDS: Insulin LISPRO 300 UNITS/3 ML VIAL SQ SCH ×6 (00:22→19:48)
[2017-05-11 01:50] LABS: Hematocrit 28.6 % (35.3-44.9); Immature Granulocytes % 0.3 % (0-4); Lymphocytes % 14.5 %; Mean Corpuscular HGB Conc 31.8 g/dL (31.6-35.5); Mean Corpuscular Hemoglobin 27.5 pg (28.0-33.3); Mean Corpuscular Volume 86.4 fL (83.0-100.0); Mean Platelet Volume 10.7 fL (9.4-12.4); Platelet Count 219 K/mcL (140-400); Red Blood Count 3.31 M/mcL (3.82-4.97); Red Cell Distribution Width 15.6 % (11.5-14.5); Segmented Neutrophils % 73.4 %
[2017-05-11 01:51] LABS: Basophils % 0.3 %; Eosinophils # 0.3 K/mcL (0.0-0.6); Monocytes # 0.4 K/mcL (0.0-1.3); Monocytes % 6.5 %; Neutrophils # 4.8 K/mcL (1.6-8.9)
[2017-05-11 01:53] LABS: Hemoglobin 9.1 g/dL (11.5-15.4)
[2017-05-11 02:05] LABS: Calcium 9.1 mg/dL (8.6-10.8)
[2017-05-11] MEDS ORDERED: *HR* Heparin 5,000 UNIT/ML VIAL SQ SCH (06:00)
[2017-05-11] MEDS: *HR* HYDROcodone/Acet 10/325 mg TABLET PO PRN ×2 (06:30→19:47)
--- NOTE | 2017-05-11 06:34 | Electrocardiograph Report ---
[facility] Test Date: 2017-05-10 Pat Name: Freya Benavidez Department: 102 Room: 2N07 Gender: F Patient Relations Representative: Vl : 1980 Requested By: Behzad Robles Order Number: [id number] Reading MD: Rosalino Rivera MD Measurements Intervals [place] Rate: 81 P: 30 W[place]: 176 QRS: -3 QRSD: 110 T: 145 QT: 398 QTc: 435 Interpretive Statements SINUS RHYTHM ST DEVIATION AND MODERATE T-WAVE ABNORMALITY, CONSIDER LATERAL ISCHEMIA Electronically Signed On 05-11-2017 6:32:31 EST by Rosalino Rivera MD
[2017-05-11] MEDS: niCARdipine 40 MG/200 ML MLS IVC SCH ×2 (07:43→16:00)
--- NOTE | 2017-05-11 07:50 | Nephrology Consult Note ---
Date of Encounter: 05/11/17 Time of Encounter: 07:47 Assessment and Plan (1) ESRD (end stage renal disease) on dialysis Current Visit: No Status: Chronic The patient has end-stage renal disease related to type I diabetic nephropathy. She receives dialysis every Wednesday. Main issue at this hospitalization his poor blood pressure control with some neurologic symptoms. She currently is on a Cardene drip with better control of her blood pressure. We will resume some of her outpatient antihypertensive medications. She will continue to be supported with dialysis every Wednesday. Hemoglobin is 9.1. She will be maintained on Aranesp. (2) Medical non-compliance Current Visit: No Status: Chronic (3) Hypertensive urgency Current Visit: Yes Status: Acute (4) Anemia in chronic kidney disease (CKD) Current Visit: No Status: Chronic Qualifiers: Chronic kidney disease stage: on chronic dialysis Qualified Code(s): N18.6 - End stage renal disease; D63.1 - Anemia in chronic kidney disease; Z99.2 - Dependence on renal dialysis (5) Type 1 diabetes mellitus with end-stage renal disease (ESRD) Current Visit: No Status: Acute History of Present Illness - History of Present Illness This is a 36-year-old female with end-stage renal disease related to diabetic nephropathy. The patient dialyzes in [place] every Wednesday. Patient is about [facility] her [facility] dialysis session yesterday when she complained of numbness of her face and left arm. She subsequently was sent to the emergency room. Patient was noted to be extremely hypertensive in the emergency room. She now is on a Cardene drip. Patient has a history of very poorly controlled hypertension primarily related to poor compliance with antihypertensive medications. Generally when she is hospitalized and placed on her typical outpatient medications for blood pressure is under excellent control. This morning the patient is alert and oriented. She says overall she does not feel well but has no other specific complaints. She denies any neurologic complaints. Specifically she denies any numbness in her face or arm. Her speech is normal. She denies any chest pain or shortness of breath. Past Med Surg Social Fam HX - Past Medical History Medical history: coronary artery disease, diabetes, dialysis, hypertension, renal disease Psychiatric history: anxiety, depression - Past Surgical History Surgical History: angioplasty/stent, hip replacement, hysterectomy, other - Social History Smoking Status: Former smoker Smokeless Tobacco Status: No Alcohol use: none Drug use: none - Family History Mother Adopted: No Family Member Ethnicity: Non- Living Status: Still Living Hx Family Cardiac Disorders: Yes (Father with coronary artery disease) Hx Family Respiratory Disorders: No Hx Family Cancer: Yes (Breast) Hx Family GI Disorders: No Hx Family Endocrine Disorder: Yes (Mother with dm) Hx Family Neuromuscular Disorders: No Hx Family Neurologic Disorders: No Hx Family HEENT Disorders: No Hx Family Autoimmune Disorders: No Medications and Allergies HYDROcodone/Acet 10/325 mg [[place] 10-325 mg] 1 tab PO QID PRN 01/21/16 [History] Insulin ASPART [NovoLOG] 5 - 10 unit SQ TIDWM PRN 04/21/16 [History] Clopidogrel [Plavix] 75 mg PO DAILY tablet 04/23/16 [Rx] Lisinopril [Zestril] 20 mg PO BID 60 Days tablet 11/13/16 [Rx] Carvedilol [Coreg] 25 mg PO BIDWM 01/23/17 [History] CloNIDine Patch [Catapres-Tts] 0.2 mg TD QWEEK 01/23/17 [History] Insulin DETEMIR [Levemir] 60 - 80 unit SQ HS 01/23/17 [History] Colesevelam HCl [Welchol] 625 mg PO TID 04/06/17 [History] 3 Allergy/AdvReac Type Severity Reaction Status Date / Time Amoxicillin Allergy Hives Verified 05/10/17 18:16 metoclopramide [From Reglan] AdvReac Shakiness Verified 05/10/17 18:16 ondansetron AdvReac Vomiting Verified 05/10/17 18:16 [From Zofran (as hydrochloride)] Review of Systems Constitutional: as per HPI Eyes: bilateral: blurred vision (patient denies), diplopia (patient denies) Cardiovascular: no chest pain, no palpitations Respiratory: no cough, no dyspnea Gastrointestinal: abdominal pain, nausea, vomiting Musculoskeletal: no muscle weakness, no numbness Integumentary: no hirsutism, no striae Neurological: as per HPI, numbness Psychiatric: no depression, no difficulty concentrating Hematologic/Lymphatic: no easy bruising, no lymphadenopathy Exam - Vital Signs Vital signs: Initial Vital Signs Temp Pulse Resp BP Pulse Ox 98.5 F 83 18 196/117 97 05/10/17 12:42 05/10/17 12:42 05/10/17 12:42 05/10/17 12:42 05/10/17 12:42 Vital Signs - Last 8 Hours Temp Pulse Resp BP Pulse Ox 05/11/17 07:38 98.6 F 93 16 156/71 94 05/11/17 06:45 149/87 05/11/17 05:55 177/74 05/11/17 04:55 148/82 05/11/17 03:41 170/32 05/11/17 03:39 98.1 F 91 19 154/87 97 05/11/17 02:55 126/63 05/11/17 01:55 147/84 05/11/17 00:55 161/87 05/10/17 23:55 185/101 Intake and Output 05/10/17 05/10/17 05/11/17 15:59 23:59 07:59 Intake Total 5 / 5 315.0 / 315.0 Balance 5 / 5 315.0 / 315.0 Intake: IV Fluids 5 / 5 195.0 / 195.0 Cardene Premix 40mg/200ml 40 mg 5 / 5 195.0 / 195.0 In 200 ml @ 5 MG/HR 25 mls/hr IVC .Q8H PENDING SALE TO [facility] Rx#:[id number] Oral 0 / 0 120 / 120 Other: Weight 94.4 kg 94.9 kg Blood Glucose* 176 188 Patient Weight 05/11/17 23:59 Weight 94.9 kg - General Appearance Exam: The patient is alert and oriented. She is currently is in no acute distress. She is on a Cardene drip. Blood pressure is 149/87. Neck is supple. Lungs breath sounds otherwise clear. Heart regular rate and rhythm with a 2/6 systolic ejection murmur. Abdomen is soft. Bowel sounds are present. There is no guarding or rigidity. 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 There is no peripheral edema. He tunnel dialysis catheter is present. Results - Lab Results 05/11/17 01:18 05/11/17 01:18 Most recent lab results Calcium 9.1 mg/dL (8.6-10.8) 05/11/17 01:18 Phosphorus 8.0 mg/dL (2.3-4.7) H 05/11/17 01:18 Magnesium 2.0 mg/dL (1.6-2.6) 05/11/17 01:18 Consult Discharge Plan - Plan Referrals: NONE,PCP [Primary Care Provider] -
[2017-05-11] MEDS ORDERED: CloNIDine Patch 0.2 MG PATCH (WEEKLY) TD SCH (08:00)
--- NOTE | 2017-05-11 09:02 | Cardiology Consult Note ---
<Ashok Bonilla - Last Filed: 05/11/17 11:26> Date of Encounter: 05/11/17 Time of Encounter: 08:59 Assessment and Plan (1) Elevated troponin Current Visit: Yes Status: Acute trops 0.17, 0.18, 0.21, 0.20. Patient has chronic elevation of troponins, on this admission slightly higher then previous. Baseline trops 0.17. BNP 2664. EKG showed no new ischemic changes compared to EKG from 03/2017, and 12/2016. Patient is ESRD and was not able to complete dialysis. Most likely due to demand ischemia vs less likely due to ACS. Patient is in HTN emergency. - continue home lisinopril 20 BID, carvedilol 25 BID - restarted home plavix - should be started on statin, unclear why she currently is not on statin - echo pending - conservative management for now (2) Abnormal EKG Current Visit: Yes Status: Acute EKG showed ST deviation and moderate T-wave anbormality. Review multiple old EKG's does not appear new. Patient does have a past history of CAD with stent placement. CXR - improved pulmonary edema since previous exam. Patient does not report clinical symptoms of ACS. (3) ESRD (end stage renal disease) on dialysis Current Visit: Yes Status: Chronic per management of nephology (4) Hypertensive emergency Current Visit: Yes Status: Acute per management of medicine team Discussion w patient/family: The assessment and plan as outlined above was discussed with the patient and/or family members who expressed understanding and agreement. All questions were answered. Thank you for involving us in the care of your patient. Please call with any questions. History of Present Illness Consult date: 05/11/17 Requesting physician: Jake Biggs Consult reason: abnormal EKG Chief complaint: AMS/HTN encephalopathy History of present illness: Ms. Benavidez is a 36 year old female w/ Hx ESRD 2/2 diabetic nephropathy, poorly controlled DM and HTN, gastroparesis, CAD w/ stents presented with AMS. Cardiology is consulted for suspected new changes on EKG. Patient was at dialysis after 90 minutes patient began started feeling slightly confused, nauseated then vomited. Patient was then trasnferred to [place] ED. On chart review, pateint BP was >220/>110. When patient was seen this morning she was alert and oriented, and was able to answer questions. Patient reports that she tries to remain compliant with medications but she is nauseated all the time that every time she takes her pills she vomits them up. Patient reports feeling nauseated today. Patient denies chest pain, diaphoresis, numb/tingling of her extremities or neck. Patient also does not report having similar symptoms to her previous [place]. Patient is familiar to [place], patient has history of HTN urgency/emergencies which resolve after patient is restarted on home rx. Past Med Surg Social Fam HX - Past Medical History Medical history: coronary artery disease, diabetes, dialysis, hypertension, renal disease Psychiatric history: anxiety, depression - Past Surgical History Surgical History: angioplasty/stent, hip replacement, hysterectomy, other - Social History Smoking Status: Former smoker Smokeless Tobacco Status: No Alcohol use: none Drug use: none - Family History Mother Adopted: No Family Member Ethnicity: Non- Living Status: Still Living Hx Family Cardiac Disorders: Yes (Father with coronary artery disease) Hx Family Respiratory Disorders: No Hx Family Cancer: Yes (Breast) Hx Family GI Disorders: No Hx Family Endocrine Disorder: Yes (Mother with dm) Hx Family Neuromuscular Disorders: No Hx Family Neurologic Disorders: No Hx Family HEENT Disorders: No Hx Family Autoimmune Disorders: No Medications and Allergies HYDROcodone/Acet 10/325 mg [[place] 10-325 mg] 1 tab PO QID PRN 01/21/16 [History] Insulin ASPART [NovoLOG] 5 - 10 unit SQ TIDWM PRN 04/21/16 [History] Clopidogrel [Plavix] 75 mg PO DAILY tablet 04/23/16 [Rx] Lisinopril [Zestril] 20 mg PO BID 60 Days tablet 11/13/16 [Rx] Carvedilol [Coreg] 25 mg PO BIDWM 01/23/17 [History] CloNIDine Patch [Catapres-Tts] 0.2 mg TD QWEEK 01/23/17 [History] Insulin DETEMIR [Levemir] 60 - 80 unit SQ HS 01/23/17 [History] Colesevelam HCl [Welchol] 625 mg PO TID 04/06/17 [History] 3 Allergy/AdvReac Type Severity Reaction Status Date / Time Amoxicillin Allergy Hives Verified 05/10/17 18:16 metoclopramide [From Reglan] AdvReac Shakiness Verified 05/10/17 18:16 ondansetron AdvReac Vomiting Verified 05/10/17 18:16 [From Zofran (as hydrochloride)] All Systems Review: A 10-system review of systems was performed and is negative for pertinent findings except as documented above in the HPI. - Constitutional Constitutional: fatigue, headache(s), weakness, no chills, no fever(s) - EENT Eyes: no blurred vision - Cardiovascular Cardiovascular: as per HPI - Respiratory Respiratory: no cough, no dyspnea, no hemoptysis, no wheezing - Gastrointestinal Gastrointestinal: no abdominal pain - Integumentary Integumentary: no erythema, no rash - Neurological Neurological: dizziness, no abnormal speech, no focal weakness - Psychiatric Psychiatric: no anxiety, no depression, no hallucinations, no panic attacks Physical Examination Vital Signs, Last 4 Hours Temp Pulse Resp BP Pulse Ox 05/11/17 07:38 98.6 F 93 16 156/71 94 05/11/17 06:45 149/87 05/11/17 05:55 177/74 General: Conversant, Other (slight discomfort from feeling nauseated) HEENT: Atraumatic, Normocephaly, Mucus Membranes Moist Neck: No JVD, Normal carotid pulses Cardiac: Reg Rate and Rhythm, Normal S1 and S2, No Murmur Lungs: Normal Breath Sounds, No Wheeze, Rales, Rhonchi Neuro: Alert and responsive, No focal deficits noted Abdomen: Soft, Non-Tender Skin: No rashes noted on visualized skin Musculoskeletal: No Chest Wall Tenderness Extremities: No Clubbing, No Cyanosis, No Edema, Other (bilateral BKA) Results 05/11/17 01:18 05/11/17 01:18 Lab Results 05/10/17 05/11/17 05/11/17 21:30 01:18 01:18 WBC 6.6 Hgb 9.1 L D Hct 28.6 L Plt Count 219 Sodium Potassium Chloride Carbon Dioxide BUN Creatinine Glucose Calcium Magnesium Troponin I 0.18 H* 0.21 H* 05/11/17 05/11/17 01:18 07:54 WBC Hgb Hct Plt Count Sodium 133 L Potassium 5.0 H Chloride 95 L Carbon Dioxide 23 BUN 64 H Creatinine 7.37 H Glucose 163 H Calcium 9.1 Magnesium 2.0 Troponin I 0.20 H* Consult Discharge Plan - Plan Referrals: Colt Espinoza MD [Non-Partnered Physician] - 05/18/17 10:45 am NONE,PCP [Primary Care Provider] - <Dunia Gonzalez - Last Filed: 05/11/17 13:51> Date of Encounter: 05/11/17 - Attending Attestation I examined this patient and my medical decision-making was reviewed with the Resident Physician. I agree with the documented findings, disposition and treatment plan. Ms. Benavidez presented with confusion, nausea and vomiting during dialysis and was found to have very high blood pressures. Incidentally discovered is an elevated troponin. At the bedside, she is alert conversant and oriented x3. She denies recent chest pain. Her ECG demonstrates diffuse nonspecific ST abnormalities that are similar when compared to prior ECGs. Looking back, she has chronically elevated troponins. Current troponin is not diagnostic for ischemia and there are no new ischemic ECG findings. Patient is not having chest pain. Recommend an echo for review of structure and function. She should restart her antiplatelet agent and statin. If echo returns without new findings, we recommend conservative management with blood pressure control and medical therapy. Assessment and Plan Discussion w patient/family: The assessment and plan as outlined above was discussed with the patient and/or family members who expressed understanding and agreement. All questions were answered. Thank you for involving us in the care of your patient. Please call with any questions. History of Present Illness History of present illness: Ms. Benavidez is a 36 year old female All Systems Review: A 10-system review of systems was performed and is negative for pertinent findings except as documented above in the HPI. Physical Examination Vital Signs, Last 4 Hours Temp Pulse Resp BP Pulse Ox 05/11/17 11:20 97.6 F 85 17 157/81 94 05/11/17 10:21 145/72 Results 05/11/17 01:18 05/11/17 01:18 Lab Results 05/10/17 05/11/17 05/11/17 21:30 01:18 01:18 WBC 6.6 Hgb 9.1 L D Hct 28.6 L Plt Count 219 Sodium Potassium Chloride Carbon Dioxide BUN Creatinine Glucose Calcium Magnesium Troponin I 0.18 H* 0.21 H* 05/11/17 05/11/17 01:18 07:54 WBC Hgb Hct Plt Count Sodium 133 L Potassium 5.0 H Chloride 95 L Carbon Dioxide 23 BUN 64 H Creatinine 7.37 H Glucose 163 H Calcium 9.1 Magnesium 2.0 Troponin I 0.20 H*
[2017-05-11] MEDS ORDERED: *HR* Promethazine 25 MG/ML VIAL IVP ONE (09:09)
[2017-05-11] MEDS: Lisinopril 20 MG TABLET PO SCH ×2 (09:12→19:48)
[2017-05-11 09:56] LABS: Hepatitis B Surface Antigen Nonreactive (Nonreactive)
[2017-05-11] MEDS ORDERED: Acetaminophen 325 MG TABLET PO PRN (11:47)
[2017-05-11] MEDS: Insulin DETEMIR 100 UNIT/ML X5UNITS SQ SCH ×2 (14:11→19:47)
[2017-05-11] MEDS: *HR* Promethazine 25 MG/ML VIAL IVP PRN ×2 (14:11→19:47)
--- NOTE | 2017-05-11 15:46 | Internal Med Progress Note ---
<Paramjit Whipple - Last Filed: 05/11/17 17:08> Date of Encounter: 05/11/17 Time of Encounter: 20:00 - Assessment and plan (1) Hypertensive emergency Current Visit: Yes Status: Acute Assessment and plan: Currently on nicardipine drip; sub optimally controlled blood pressure patient is scheduled for dialysis in the morning; expected that blood pressures will improve after HD will discontinue nicardipine when control is exhibited as evidenced by systolic blood pressure less than 140 mmHg (2) Acute encephalopathy Current Visit: Yes Status: Acute Assessment and plan: Alert and oriented x3 (3) Elevated troponin Current Visit: Yes Status: Acute Assessment and plan: Republicans have plateaued despite being above patient's baseline following with cardiology agree with cardiology that current troponin to represent demand ischemia due to volume overload and hypertensive emergency follow with cardiology recommendations including lisinopril, Plavix, starting statin; echo pending (4) Diabetes Current Visit: No Status: Acute Assessment and plan: Rn Oncology patient on dietary factors; on exam, patient was eating [place] ranjayesh started patient on 15 unit Levemir b.i.d. increased SSI to medium dose schedule diabetic diet will continue to monitor Qualifiers: Diabetes mellitus type: type 2 Diabetes mellitus complication status: with circulatory complication Diabetes mellitus complication detail: with other circulatory complications Diabetes mellitus supervisor long goods insulin use: with shelter use Qualified Code(s): E11.59 - Type 2 diabetes mellitus with other circulatory complications; Z79.4 - emt intermediate (current) use of insulin (5) ESRD (end stage renal disease) on dialysis Current Visit: No Status: Chronic Assessment and plan: Nephrology consulted on case plan to adhere to Xrdbvc-Duydtfvnc-Mitmyn dialysis schedule will continue to monitor BMP QAM (6) CAD (coronary artery disease) Current Visit: No Status: Chronic Assessment and plan: As above Qualifiers: Coronary Disease-Associated Artery/Lesion type: [place] artery [place] vs. transplanted heart: [place] heart Associated angina: without angina Qualified Code(s): I25.10 - Atherosclerotic heart disease of [place] coronary artery without angina pectoris (7) DVT prophylaxis Current Visit: No Status: Acute Assessment and plan: Continue subQ heparin - Time Spent With Patient less than 15 minutes - Subjective Interval history: Continues to have diffuse pain; denies any episodes of emesis this a.m. Patient also complains of mild headache and requests additional pain medications. On exam, patient is alert and oriented to person, place, and time. Patient otherwise denies any acute complaints. - Constitutional Vitals: Temp Pulse Resp BP Pulse Ox 97.6 F 85 17 157/81 94 05/11/17 11:20 05/11/17 11:20 05/11/17 11:20 05/11/17 11:20 05/11/17 11:20 General appearance: Present: A&O X 0 - Head Head exam: Present: atraumatic, normocephalic - Eye Eye exam: Present: PERRL, conjuntiva pink, sclera anicteric - Neck Neck exam general surgery: Present: supple, trachea midline. Absent: lymphadenopathy - Respiratory Respiratory exam: Present: CTAB. Absent: accessory muscle use, rales, respiratory distress, rhonchi, stridor, wheezes, tachypnea - Cardiovascular Cardiovascular exam: Present: RRR, +S1, +S2. Absent: diastolic murmur, gallop, rubs, +S3, +S4, systolic murmur, tachycardia - GI/Abdominal GI/Abdominal exam: Present: normal bowel sounds, soft, no peritoneal signs. Absent: distended, firm, guarding, hyperactive bowel sounds, hypoactive bowel sounds, tenderness - Extremities Exam Extremities exam: Present: warm, radial pulses palpable and symmetrical. Absent : calf tenderness, cyanotic, mottling Additional comments: Multiple amputations apparent on gross examination of lower extremities including BKA and TMA. - Neurological Exam Neurological exam: Present: oriented X3, no focal deficits. Absent: facial droop, speech deficit - Skin Skin exam: Present: dry, intact, normal color. Absent: cyanosis, diaphoretic, mottled, pallor Internal Medicine: Result - Labs CBC & Chem 7: 05/11/17 01:18 05/11/17 01:18 Labs: Short CBC 05/11/17 Range/Units 01:18 WBC 6.6 (4.3-11.1) K/mcL Hgb 9.1 L D (11.5-15.4) g/dL Hct 28.6 L (35.3-44.9) % Plt Count 219 (140-400) K/mcL Neutrophils # 4.8 (1.6-8.9) K/mcL BMP 05/11/17 01:18 Sodium 133 L Potassium 5.0 H Chloride 95 L Carbon Dioxide 23 BUN 64 H Creatinine 7.37 H Glucose 163 H Calcium 9.1 Cardiac Enzymes 05/10/17 05/11/17 05/11/17 Range/Units 21:30 01:18 07:54 Troponin I 0.18 H* 0.21 H* 0.20 H* (0-0.03) ng/mL Laboratory Last Values WBC 6.6 K/mcL (4.3-11.1) 05/11/17 01:18 RBC 3.31 M/mcL (3.82-4.97) L 05/11/17 01:18 Hgb 9.1 g/dL (11.5-15.4) L D 05/11/17 01:18 Hct 28.6 % (35.3-44.9) L 05/11/17 01:18 MCV 86.4 fL (83.0-100.0) 05/11/17 01:18 MCH 27.5 pg (28.0-33.3) L 05/11/17 01:18 MCHC 31.8 g/dL (31.6-35.5) 05/11/17 01:18 RDW 15.6 % (11.5-14.5) H 05/11/17 01:18 Plt Count 219 K/mcL (140-400) 05/11/17 01:18 MPV 10.7 fL (9.4-12.4) 05/11/17 01:18 Immature Gran % 0.3 % (0-4) 05/11/17 01:18 Seg Neutrophils % 73.4 % 05/11/17 01:18 Lymphocytes % 14.5 % 05/11/17 01:18 Monocytes % 6.5 % 05/11/17 01:18 Eosinophils % 5.0 % 05/11/17 01:18 Basophils % 0.3 % 05/11/17 01:18 Neutrophils # 4.8 K/mcL (1.6-8.9) 05/11/17 01:18 Lymphocytes # 1.0 K/mcL (0.6-4.6) 05/11/17 01:18 Monocytes # 0.4 K/mcL (0.0-1.3) 05/11/17 01:18 Eosinophils # 0.3 K/mcL (0.0-0.6) 05/11/17 01:18 Basophils # 0.0 K/mcL (0.0-0.2) 05/11/17 01:18 Immature Plt Fraction 4.9 % (1.1-6.1) 05/10/17 15:33 PT 11.9 Seconds (9.4-12.1) 05/10/17 14:58 INR 1.1 05/10/17 14:58 APTT 35.1 Seconds (26.0-36.0) 05/10/17 14:58 Sodium 133 mEq/L (136-145) L 05/11/17 01:18 Potassium 5.0 mEq/L (3.5-4.5) H 05/11/17 01:18 Chloride 95 mEq/L (98-109) L 05/11/17 01:18 Carbon Dioxide 23 mEq/L (19-29) 05/11/17 01:18 BUN 64 mg/dL (7-20) H 05/11/17 01:18 Creatinine 7.37 mg/dL (0.57-1.11) H 05/11/17 01:18 Est GFR ( Amer) 8 (> 60) L 05/11/17 01:18 Est GFR (Non-Af Amer) 6 (> 60) L 05/11/17 01:18 BUN/Creatinine Ratio 9 (6-26) 05/11/17 01:18 Glucose 163 mg/dL (70-99) H 05/11/17 01:18 POC Glucose 351 (58-89) H 05/11/17 11:26 Calculated Osmolality 298 (280-300) 05/11/17 01:18 Calcium 9.1 mg/dL (8.6-10.8) 05/11/17 01:18 Phosphorus 8.0 mg/dL (2.3-4.7) H 05/11/17 01:18 Magnesium 2.0 mg/dL (1.6-2.6) 05/11/17 01:18 Total Bilirubin 0.5 mg/dL (0.2-1.2) 05/10/17 14:58 Direct Bilirubin 0.2 mg/dL (0.0-0.5) 05/10/17 14:58 Indirect Bilirubin 0.3 mg/dL (0.0-1.2) 05/10/17 14:58 AST 10 Units/L (5-34) 05/10/17 14:58 ALT 6 Units/L (0-55) 05/10/17 14:58 Alkaline Phosphatase 109 Units/L (38-126) 05/10/17 14:58 Ammonia 36 mcmol/L (18-72) 05/10/17 14:58 Troponin I 0.20 ng/mL (0-0.03) H* 05/11/17 07:54 B-Natriuretic Peptide 2664 pg/mL (0-100) H 05/10/17 14:58 Serum Total Protein 8.7 g/dL (6.0-8.3) H 05/10/17 14:58 Albumin 3.1 g/dL (3.5-5.0) L 05/10/17 14:58 Globulin 5.6 g/dL (2.4-3.5) H 05/10/17 14:58 Albumin/Globulin Ratio 0.6 (1.1-2.2) L 05/10/17 14:58 TSH 0.384 mcIU/mL (0.350-4.840) 05/10/17 14:58 Ethyl Alcohol < 10 mg/dL (0-10) 05/10/17 14:58 Hep Bs Antigen Nonreactive (Nonreactive) 05/11/17 07:54 - ABG Interpretation ABG results: PT/INR, D-dimer PT 11.9 Seconds (9.4-12.1) 05/10/17 14:58 Consult Discharge Plan - Plan Referrals: Colt Espinoza MD [Non-Partnered Physician] - 05/18/17 10:45 am NONE,PCP [Primary Care Provider] - <Marcelo Sloan - Last Filed: 05/11/17 18:20> Date of Encounter: 05/11/17 - Constitutional Vitals: Temp Pulse Resp BP Pulse Ox 97.6 F 90 16 153/83 94 05/11/17 16:33 05/11/17 16:33 05/11/17 16:33 05/11/17 16:33 05/11/17 16:33 Internal Medicine: Result - Labs CBC & Chem 7: 05/11/17 01:18 05/11/17 01:18 Labs: Short CBC 05/11/17 Range/Units 01:18 WBC 6.6 (4.3-11.1) K/mcL Hgb 9.1 L D (11.5-15.4) g/dL Hct 28.6 L (35.3-44.9) % Plt Count 219 (140-400) K/mcL Neutrophils # 4.8 (1.6-8.9) K/mcL BMP 05/11/17 01:18 Sodium 133 L Potassium 5.0 H Chloride 95 L Carbon Dioxide 23 BUN 64 H Creatinine 7.37 H Glucose 163 H Calcium 9.1 Cardiac Enzymes 05/10/17 05/11/17 05/11/17 Range/Units 21:30 01:18 07:54 Troponin I 0.18 H* 0.21 H* 0.20 H* (0-0.03) ng/mL - ABG Interpretation ABG results: PT/INR, D-dimer PT 11.9 Seconds (9.4-12.1) 05/10/17 14:58 - Attending Attestation I conducted a face to face diagnostic evaluation of this patient and my medical decision-making was reviewed with the Resident Physician, Dr. Sarabjit Yusuf. I agree with the documented findings, disposition and treatment plan as described except to the extent set forth below: When I entered the room patient was eating from a bag of sugar candy and admitted that she had a few pieces of candy earlier today. Patient reports severe back pain which she states has been chronic. She has been asking for pain medications. She states that she takes [place] at home and gives her some relief but does not completely eased the pain. On exam she is in no acute distress. Heart is regular. Lungs are clear. Plan: First I emphasized the importance of dietary compliance with the patient. Continue with [place] for back pain. There is no indication for IV opiates given the chronicity of pain and good oral intake. I explained this to the patient.
[2017-05-11] MEDS ORDERED: Insulin Human Regular 10 UNIT in 0.9 % Sodium Chloride 10 ML IV ONE (16:43)
[2017-05-11] MEDS: *HR* Heparin 5,000 UNIT/ML VIAL SQ SCH (17:35)
[2017-05-11] MEDS ORDERED: Insulin DETEMIR 100 UNIT/ML X5UNITS SQ SCH (21:00)
[2017-05-12] MEDS: *HR* Promethazine 25 MG/ML VIAL IVP PRN ×3 (03:25→20:17)
[2017-05-12] MEDS: *HR* Heparin 5,000 UNIT/ML VIAL SQ SCH ×2 (04:07→17:13)
--- NOTE | 2017-05-12 05:43 | Electrocardiograph Report ---
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
[2017-05-12] MEDS: niCARdipine 40 MG/200 ML MLS IVC SCH ×2 (07:21)
[2017-05-12] MEDS: *HR* HYDROcodone/Acet 10/325 mg TABLET PO PRN ×3 (07:38→20:17)
[2017-05-12] MEDS: Lisinopril 20 MG TABLET PO SCH ×2 (07:39→20:17)
[2017-05-12] MEDS: Insulin LISPRO 300 UNITS/3 ML VIAL SQ SCH ×5 (08:03→20:26)
--- NOTE | 2017-05-12 08:55 | Nephrology Progress Note ---
Date of Encounter: 05/12/17 Time of Encounter: 08:54 - Assessment and Plan (1) ESRD (end stage renal disease) on dialysis Current Visit: Yes Status: Chronic The patient will undergo dialysis today. We will make additional changes to her antihypertensive regimen in an effort to wean her off the Cardene infusion. (2) Medical non-compliance Current Visit: No Status: Chronic (3) Hypertensive urgency Current Visit: Yes Status: Acute (4) Anemia in chronic kidney disease (CKD) Current Visit: No Status: Chronic Qualifiers: Chronic kidney disease stage: on chronic dialysis Qualified Code(s): N18.6 - End stage renal disease; D63.1 - Anemia in chronic kidney disease; Z99.2 - Dependence on renal dialysis (5) Type 1 diabetes mellitus with end-stage renal disease (ESRD) Current Visit: No Status: Acute Subjective Interval history: The patient reports she is feeling tired. Otherwise she voices no new complaints. Blood pressures improved but she is still on the Cardene drip to help maintain adequate blood pressure control. Objective - Vital Signs Vital signs: Vital Signs Temp Pulse Resp BP Pulse Ox 05/12/17 08:09 148/87 05/12/17 07:42 98.3 F 88 20 156/96 95 05/12/17 03:16 98.2 F 86 18 127/72 99 05/12/17 01:00 81 143/91 05/12/17 00:09 98.5 F 82 18 118/66 98 05/11/17 20:00 95 155/97 05/11/17 19:05 99.4 F 94 20 155/97 99 05/11/17 16:33 97.6 F 90 16 153/83 94 05/11/17 11:20 97.6 F 85 17 157/81 94 05/11/17 10:21 145/72 Intake and Output 05/11/17 05/12/17 05/12/17 23:59 07:59 15:59 Intake Total 240 / 240 400 / 400 Output Total 0 / 0 Balance 240 / 240 400 / 400 Intake: IV Fluids 400 / 400 Cardene Premix 40mg/200ml 40 mg 400 / 400 In 200 ml @ 5 MG/HR 25 mls/hr IVC .Q8H [facility] Rx#:[id number] Oral 240 / 240 Output: Urine 0 / 0 Other: Meal Dinner Percent of Meal Consumed 100% Weight 95.4 kg Blood Glucose* 461 421 Patient Weight 05/12/17 23:59 Weight 95.4 kg - General Appearance Exam: Patient is alert and oriented. She is in no acute distress. Lungs essentially clear to auscultation. Heart regular rate and rhythm. Abdomen is benign. 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 There is a tunnel dialysis catheter present in the chest. - Lab 05/11/17 01:18 05/11/17 01:18 Most recent lab results Calcium 9.1 mg/dL (8.6-10.8) 05/11/17 01:18 Phosphorus 8.0 mg/dL (2.3-4.7) H 05/11/17 01:18 Magnesium 2.0 mg/dL (1.6-2.6) 05/11/17 01:18 Consult Discharge Plan - Plan Referrals: Colt Espinoza MD [Non-Partnered Physician] - 05/18/17 10:45 am NONE,PCP [Primary Care Provider] -
[2017-05-12] MEDS ORDERED: 0.9 % Sodium Chloride 250 ML IVC PRN (08:56)
[2017-05-12] MEDS: Insulin DETEMIR 100 UNIT/ML X5UNITS SQ SCH ×2 (09:01→20:18)
--- NOTE | 2017-05-12 10:13 | Cardiology Progress Note ---
Date of Encounter: 05/12/17 Time of Encounter: 10:11 Assessment and Plan (1) Elevated troponin Current Visit: Yes Status: Acute trops 0.17, 0.18, 0.21, 0.20. Patient has chronic elevation of troponins, on this admission slightly higher then previous. Baseline trops 0.17. EKG showed no new ischemic changes compared to EKG from 03/2017, and 12/2016. Most likely due to demand ischemia in the setting of ESRD and hypertensive urgency. H/o CAD. Denies CV symptoms. Continue asa, plavix, statin, and bb. TTE shows preserved LV function. Normal RV function. No significant valvular disease. No further cardiac testing indicated at this time. Cardiology will sign off. Call with questions. 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 (2) Hypertensive emergency Current Visit: Yes Status: Acute B/p improved. Continue norvasc, carvedilol, and zestril. Consider adding hydralizine if needed. Low sodium diet. (3) Abnormal EKG Current Visit: Yes Status: Chronic EKG showed ST deviation and moderate T-wave anbormality. Compared to old EKG st changes are not new. (4) CAD (coronary artery disease) Current Visit: Yes Status: Chronic H/o CAD s/p previous PCI. Follows with Cardiology in [place]. Continue asa, statin, plavix, and bb. Qualifiers: Coronary Disease-Associated Artery/Lesion type: [place] artery [place] vs. transplanted heart: [place] heart Associated angina: without angina Qualified Code(s): I25.10 - Atherosclerotic heart disease of [place] coronary artery without angina pectoris Discussion w patient/family: The assessment and plan as outlined above was discussed with the patient and/or family members who expressed understanding and agreement. All questions were answered. Thank you for involving us in the care of your patient. Please call with any questions. Subjective Principal diagnosis: elevated troponin Interval history: Ms. Benavidez denies chest pain or SOB. Nausea improved. Patient was unable to complete TTE due to rib pain with test. Objective Vital Signs, Last 4 Hours Temp Pulse Resp BP Pulse Ox 05/12/17 09:13 157/96 05/12/17 08:09 148/87 05/12/17 07:42 98.3 F 88 20 156/96 95 General: Conversant, No Apparent Distress HEENT: Atraumatic, Normocephaly, Mucus Membranes Moist Neck: No JVD, Normal carotid pulses, Other (KISHOR catheter in-place) Cardiac: Reg Rate and Rhythm, Normal S1 and S2, No Murmur Lungs: Normal Breath Sounds, No Wheeze, Rales, Rhonchi Neuro: Alert and responsive, No focal deficits noted Abdomen: Soft, Non-Tender Skin: No rashes noted on visualized skin Musculoskeletal: No Chest Wall Tenderness Extremities: No Clubbing, No Cyanosis, No Edema, Normal Pulses, Other (right BKA , trace edema in left lower extremity. ) Results 05/11/17 01:18 05/11/17 01:18 - Imaging and Cardiology Echo: pending, report reviewed Consult Discharge Plan - Plan Referrals: Colt Espinoza MD [Non-Partnered Physician] - 05/18/17 10:45 am NONE,PCP [Primary Care Provider] -
[2017-05-12 10:19] LABS: Hepatitis B Surface Antibody 8.73 mIU/mL
[2017-05-12 10:43] LABS: Hemoglobin 9.1 g/dL (11.5-15.4); Mean Corpuscular HGB Conc 31.4 g/dL (31.6-35.5); Mean Corpuscular Hemoglobin 27.6 pg (28.0-33.3); Mean Corpuscular Volume 87.9 fL (83.0-100.0); Mean Platelet Volume 10.6 fL (9.4-12.4); Platelet Count 217 K/mcL (140-400); Red Cell Distribution Width 15.8 % (11.5-14.5)
[2017-05-12 11:53] LABS: Calcium 8.4 mg/dL (8.6-10.8); Potassium 4.5 mEq/L (3.5-4.5)
[2017-05-12] MEDS: Aspirin Enteric Coated 81 MG Tablet PO SCH (13:13)
[2017-05-12] MEDS: amLODIPine 5 MG TABLET PO SCH ×2 (13:13→20:17)
[2017-05-12] MEDS ORDERED: 0.9 % Sodium Chloride 1,000 ML ONE (13:32)
[2017-05-12] MEDS ORDERED: *HR* Heparin 10,000 UNIT/10 ML VIAL IV PRN (13:37)
[2017-05-12] MEDS: Vancomycin 1,000 MG in D5% in Water 250 ML IVPB SCH (15:11)
[2017-05-12] MEDS ORDERED: *HR* Promethazine 25 MG/ML VIAL IV ONE (15:15)
[2017-05-12] MEDS: *HR* HYDROmorphone 4 MG TABLET PO PRN ×2 (15:35→21:33)
--- NOTE | 2017-05-12 16:33 | Internal Med Progress Note ---
Addendum entered and electronically signed by Paramjit Whipple DO 05/13/17 07:16: Original Note: <Paramjit Whipple - Last Filed: 05/12/17 16:46> Date of Encounter: 05/12/17 Time of Encounter: 16:31 - Assessment and plan (1) Hypertensive emergency Status: Acute Assessment and plan: Currently on nicardipine drip; continues to be hypertensive patient had dialysis this morning; blood pressure continues to be elevated despite HD output of 3600 ML nephrology is currently adjusting patient's antihypertensives and we will attempt to wean from nicardipine drip continue to follow with nephrology will discontinue nicardipine when control is exhibited as evidenced by systolic blood pressure less than 140 mmHg no acute signs or findings of end organ damage due to in-progress management of patients persistently elevated blood pressure, discharge planning pending; hopefully next 1-2 days (2) Acute encephalopathy Status: Acute Assessment and plan: Resolved (3) Elevated troponin Status: Acute Assessment and plan: Troponins have plateaued despite being above patient's baseline in agreement with cardiology who maintains a patient's elevation of troponin is likely secondary to demand ischemia cardiology has signed off as banking consultant echocardiogram was performed which was limited due to patient refusal to continue the exam; examine demonstrated an EF of ~55% per cardiology recommendation, will have patient follow-up with [place] [facility] 1-2 weeks after discharge (4) Diabetes Status: Acute Assessment and plan: Assembler Adjuster patient on dietary factors; patient continues to downplay significance of dietary contributor started patient on 15 unit Levemir b.i.d.; consider escalating in a.m. continue SSI continue to encourage diabetic diet will continue to monitor Qualifiers: Diabetes mellitus type: type 2 Diabetes mellitus complication status: with circulatory complication Diabetes mellitus complication detail: with other circulatory complications Diabetes mellitus correction insulin use: with termination clerk use Qualified Code(s): E11.59 - Type 2 diabetes mellitus with other circulatory complications; Z79.4 - termination clerk (current) use of insulin (5) ESRD (end stage renal disease) on dialysis Status: Chronic Assessment and plan: Nephrology consulted on case plan to adhere to Kcroqn-Jsgkczqmp-Lpyibl dialysis schedule patient's dialysis catheter is apparently improperly dressed and patient refuses to allow nursing to dress appropriately per nursing, nephrology service has initiated vancomycin IV therapy for positive culture done in their office continue to follow with nephrology will continue to monitor BMP QAM (6) CAD (coronary artery disease) Status: Chronic Assessment and plan: As above Qualifiers: Coronary Disease-Associated Artery/Lesion type: [place] artery [place] vs. transplanted heart: [place] heart Associated angina: without angina Qualified Code(s): I25.10 - Atherosclerotic heart disease of [place] coronary artery without angina pectoris (7) DVT prophylaxis Status: Acute Assessment and plan: Continue subQ heparin - Time Spent With Patient less than 15 minutes - Subjective Interval history: Continues to have diffuse pain; pain regimen was adjusted. Patient did have hemodialysis and continues to have elevated blood pressure per nursing. Patient does ask whether or not her swollen area to posterior right elbow has anything to do with her "blood infection". On exam, this appears to be an olecranon bursitis without any signs of acute inflammation. Patient otherwise denies any acute complaints. - Constitutional Vitals: Temp Pulse Resp BP Pulse Ox 98.5 F 91 20 189/104 98 05/12/17 15:57 05/12/17 15:57 05/12/17 15:57 05/12/17 15:57 05/12/17 15:57 General appearance: Present: A&O X 0, no acute distress, answers questions appropriately - Head Head exam: Present: atraumatic, normocephalic - Eye Eye exam: Present: conjuntiva pink, sclera anicteric - Neck Neck exam general surgery: Present: supple, trachea midline - Respiratory Respiratory exam: Present: CTAB. Absent: accessory muscle use, rales, respiratory distress, rhonchi, stridor, wheezes, tachypnea - Cardiovascular Cardiovascular exam: Present: RRR, +S1, +S2. Absent: diastolic murmur, gallop, JVD, rubs, +S3, +S4, systolic murmur - GI/Abdominal GI/Abdominal exam: Present: soft. Absent: distended, tenderness - Extremities Exam Extremities exam: Present: warm, radial pulses palpable and symmetrical. Absent : calf tenderness, cyanotic, pedal edema Additional comments: Patient directed my attention to her right elbow wondering whether or not the swollen region has anything to do with her current medical status. Posterior right elbow has a protuberant, non-tense, fluid filled cavity that has no erythema, edema, or tenderness. Likely olecranon bursa. - Neurological Exam Neurological exam: Present: oriented X3. Absent: facial droop, speech deficit - Skin Skin exam: Present: dry, intact, normal color. Absent: cyanosis, diaphoretic, mottled, pallor Internal Medicine: Result - Labs CBC & Chem 7: 05/12/17 10:30 05/12/17 11:20 Labs: Short CBC 05/12/17 Range/Units 10:30 WBC 6.0 (4.3-11.1) K/mcL Hgb 9.1 L (11.5-15.4) g/dL Hct 29.0 L (35.3-44.9) % Plt Count 217 (140-400) K/mcL BMP 05/12/17 11:20 Sodium 138 Potassium 4.5 Chloride 97 L Carbon Dioxide 29 BUN 50 H D Creatinine 5.78 H Glucose 187 H Calcium 8.4 L Laboratory Last Values WBC 6.0 K/mcL (4.3-11.1) 05/12/17 10:30 RBC 3.30 M/mcL (3.82-4.97) L 05/12/17 10:30 Hgb 9.1 g/dL (11.5-15.4) L 05/12/17 10:30 Hct 29.0 % (35.3-44.9) L 05/12/17 10:30 MCV 87.9 fL (83.0-100.0) 05/12/17 10:30 MCH 27.6 pg (28.0-33.3) L 05/12/17 10:30 MCHC 31.4 g/dL (31.6-35.5) L 05/12/17 10:30 RDW 15.8 % (11.5-14.5) H 05/12/17 10:30 Plt Count 217 K/mcL (140-400) 05/12/17 10:30 MPV 10.6 fL (9.4-12.4) 05/12/17 10:30 Immature Gran % 0.3 % (0-4) 05/11/17 01:18 Seg Neutrophils % 73.4 % 05/11/17 01:18 Lymphocytes % 14.5 % 05/11/17 01:18 Monocytes % 6.5 % 05/11/17 01:18 Eosinophils % 5.0 % 05/11/17 01:18 Basophils % 0.3 % 05/11/17 01:18 Neutrophils # 4.8 K/mcL (1.6-8.9) 05/11/17 01:18 Lymphocytes # 1.0 K/mcL (0.6-4.6) 05/11/17 01:18 Monocytes # 0.4 K/mcL (0.0-1.3) 05/11/17 01:18 Eosinophils # 0.3 K/mcL (0.0-0.6) 05/11/17 01:18 Basophils # 0.0 K/mcL (0.0-0.2) 05/11/17 01:18 Immature Plt Fraction 4.9 % (1.1-6.1) 05/10/17 15:33 PT 11.9 Seconds (9.4-12.1) 05/10/17 14:58 INR 1.1 05/10/17 14:58 APTT 35.1 Seconds (26.0-36.0) 05/10/17 14:58 Sodium 138 mEq/L (136-145) 05/12/17 11:20 Potassium 4.5 mEq/L (3.5-4.5) 05/12/17 11:20 Chloride 97 mEq/L (98-109) L 05/12/17 11:20 Carbon Dioxide 29 mEq/L (19-29) 05/12/17 11:20 BUN 50 mg/dL (7-20) H D 05/12/17 11:20 Creatinine 5.78 mg/dL (0.57-1.11) H 05/12/17 11:20 Est GFR ( Amer) 10 (> 60) L 05/12/17 11:20 Est GFR (Non-Af Amer) 8 (> 60) L 05/12/17 11:20 BUN/Creatinine Ratio 9 (6-26) 05/12/17 11:20 Glucose 187 mg/dL (70-99) H 05/12/17 11:20 POC Glucose 179 (58-89) H 05/12/17 13:18 Calculated Osmolality 304 (280-300) H 05/12/17 11:20 Calcium 8.4 mg/dL (8.6-10.8) L 05/12/17 11:20 Phosphorus 8.0 mg/dL (2.3-4.7) H 05/11/17 01:18 Magnesium 2.0 mg/dL (1.6-2.6) 05/11/17 01:18 Total Bilirubin 0.5 mg/dL (0.2-1.2) 05/10/17 14:58 Direct Bilirubin 0.2 mg/dL (0.0-0.5) 05/10/17 14:58 Indirect Bilirubin 0.3 mg/dL (0.0-1.2) 05/10/17 14:58 AST 10 Units/L (5-34) 05/10/17 14:58 ALT 6 Units/L (0-55) 05/10/17 14:58 Alkaline Phosphatase 109 Units/L (38-126) 05/10/17 14:58 Ammonia 36 mcmol/L (18-72) 05/10/17 14:58 Troponin I 0.20 ng/mL (0-0.03) H* 05/11/17 07:54 B-Natriuretic Peptide 2664 pg/mL (0-100) H 05/10/17 14:58 Serum Total Protein 8.7 g/dL (6.0-8.3) H 05/10/17 14:58 Albumin 3.1 g/dL (3.5-5.0) L 05/10/17 14:58 Globulin 5.6 g/dL (2.4-3.5) H 05/10/17 14:58 Albumin/Globulin Ratio 0.6 (1.1-2.2) L 05/10/17 14:58 TSH 0.384 mcIU/mL (0.350-4.840) 05/10/17 14:58 Ethyl Alcohol < 10 mg/dL (0-10) 05/10/17 14:58 Hep Bs Antigen Nonreactive (Nonreactive) 05/11/17 07:54 Hep Bs Antibody 8.73 mIU/mL 05/11/17 07:54 Specimen Rejected Contaminated 05/12/17 10:10 - ABG Interpretation ABG results: PT/INR, D-dimer PT 11.9 Seconds (9.4-12.1) 05/10/17 14:58 - Impressions Impressions Echocardiogram 05/11/17 10:39 Impressions: Technically sub-optimal due to clinical status. Incomplete study, patient refused to complete the examination. LVEF 55-60%. Normal LV chamber size. Atypical septal motion of unclear etiology. Mild concentric left ventricular hypertrophy. Indeterminate diastolic function. Grossly normal right ventricular structure and function. No evidence of pulmonary hypertension in the views obtained. No significant valvular dysfunction in the views obtained. Left Ventricular Wall Motion: Rest Echo Findings All wall segments showed normal motion. Findings: Study Quality * Technically sub-optimal due to clinical status. Incomplete study, patient refused to complete the examination. ECG Findings * Normal sinus rhythm. Left Ventricle * LVEF 55-60%. LV function appeared normal in the views obtained. * Normal LV chamber size. * Mild concentric left ventricular hypertrophy. * Indeterminate diastolic function. * Atypical septal motion of unclear etiology. Right Ventricle * Grossly normal right ventricular structure and function. Left Atrium * Mild to moderately dilated left atrium. Right Atrium * Normal right atrial size. Interatrial Septum * Interatrial septum not well evaluated. Aortic Valve * Aortic valve not well visualized. * No aortic regurgitation. * No aortic stenosis. Mitral Valve * Mildly thickened mitral valve leaflets. * No mitral regurgitation. * No mitral stenosis. Tricuspid Valve * Normal tricuspid valve structure and function. * Trace tricuspid regurgitation. * No evidence of pulmonary hypertension in the views obtained. Pulmonic Valve * Pulmonic valve is not well visualized. * No pulmonic regurgitation. Aorta * Normally sized aortic root. Pericardium * There is a trivial pericardial effusion present. IVC * The IVC is not well evaluated. Pulmonary Artery * Pulmonary artery not well visualized. Consult Discharge Plan - Plan Instructions: Aspirin (By mouth), Amlodipine (By mouth), Atorvastatin (By mouth ), Clopidogrel (By mouth), Chest Pain (DC), Meal Planning with Diabetes Exchanges (DC) Additional Instructions: Follow-up with your primary care provider within one to 2 weeks follow-up nephrology at regular scheduled dialysis appointment on Wednesday please take all medications as prescribed please attempt to adhere to diabetic diet as we discussed have any changes, new symptoms, or recurrence of previous symptoms, please return to the emergency department for further evaluation Referrals: Colt Espinoza MD [Non-Partnered Physician] - 05/18/17 10:45 am NONE,PCP [Primary Care Provider] - Prescriptions: amLODIPine [Norvasc] 10 mg PO BID #60 tablet Aspirin Enteric Coated [Aspirin EC] 81 mg PO DAILY #30 tablet.dr Metcalf [Lipitor] 40 mg PO HS #30 tablet Clopidogrel [Plavix] 75 mg PO DAILY #30 tablet <Marcelo Sloan - Last Filed: 05/18/17 19:49> Date of Encounter: 05/12/17 - Constitutional Vitals: Temp Pulse Resp BP Pulse Ox 97.7 F 84 17 171/83 97 05/14/17 12:15 05/14/17 11:27 05/14/17 12:15 05/14/17 13:08 05/14/17 11:27 Internal Medicine: Result - Labs CBC & Chem 7: 05/14/17 06:34 05/14/17 06:34 - ABG Interpretation ABG results: PT/INR, D-dimer PT 11.9 Seconds (9.4-12.1) 05/10/17 14:58 - Attending Attestation I conducted a face to face diagnostic evaluation of this patient and my medical decision-making was reviewed with the Resident Physician, Dr. Sarabjit Yusuf. I agree with the documented findings, disposition and treatment plan as described except to the extent set forth below: Please see event note for 05/12/17
--- NOTE | 2017-05-12 19:06 | Event Note ---
Date of Encounter: 05/12/17 Time of Encounter: 14:00 I conducted a face to face diagnostic evaluation of this patient and my medical decision-making was reviewed with the Resident Physician, Dr. Sarabjit Yusuf. I agree with the documented findings, disposition and treatment plan as described except to the extent set forth below: Patient reports severe nausea and severe headache. She says that Allen does not fully control her headache. She is asking for stronger pain medications. On exam she is in no acute distress awake alert oriented. Heart is regular abdomen is soft. Plan: Increase Phenergan to 25 mg IV every 6 hours. Advance diet. Avoid IV opiates. We will add oral Dilaudid for severe pain uncontrolled by Allen.
[2017-05-13] MEDS: *HR* Promethazine 25 MG/ML VIAL IVP PRN ×2 (03:43→11:38)
[2017-05-13] MEDS: *HR* HYDROmorphone 4 MG TABLET PO PRN ×2 (03:43→11:45)
[2017-05-13] MEDS: *HR* Heparin 5,000 UNIT/ML VIAL SQ SCH ×2 (03:45→16:47)
[2017-05-13 03:53] LABS: Hematocrit 27.7 % (35.3-44.9); Hemoglobin 8.5 g/dL (11.5-15.4); Mean Corpuscular HGB Conc 30.7 g/dL (31.6-35.5); Mean Corpuscular Hemoglobin 27.2 pg (28.0-33.3); Mean Corpuscular Volume 88.5 fL (83.0-100.0); Mean Platelet Volume 10.6 fL (9.4-12.4); Platelet Count 198 K/mcL (140-400); Red Blood Count 3.13 M/mcL (3.82-4.97)
[2017-05-13 04:12] LABS: Calcium 8.7 mg/dL (8.6-10.8); Potassium 5.2 mEq/L (3.5-4.5)
[2017-05-13] MEDS: *HR* HYDROcodone/Acet 10/325 mg TABLET PO PRN ×2 (08:23→16:46)
[2017-05-13] MEDS: amLODIPine 5 MG TABLET PO SCH ×2 (08:23→20:19)
[2017-05-13] MEDS: Lisinopril 20 MG TABLET PO SCH ×2 (08:24→20:20)
[2017-05-13] MEDS: Aspirin Enteric Coated 81 MG Tablet PO SCH (08:24)
[2017-05-13] MEDS: Insulin LISPRO 300 UNITS/3 ML VIAL SQ SCH ×7 (08:25→22:32)
[2017-05-13] MEDS: Insulin DETEMIR 100 UNIT/ML X5UNITS SQ SCH ×2 (08:49→22:33)
--- NOTE | 2017-05-13 09:47 | Nephrology Progress Note ---
Date of Encounter: 05/13/17 Time of Encounter: 09:25 - Assessment and Plan (1) ESRD (end stage renal disease) on dialysis Current Visit: Yes Status: Chronic Off cardene drip. SBP 135-148. No HD today, keeping MWF schedule. Subjective Principal diagnosis: elevated troponin Interval history: Ate breakfast. Watching tv. Denies any numbness or tingling. No new complaints. Objective - Vital Signs Vital signs: Vital Signs Temp Pulse Resp BP Pulse Ox 05/13/17 08:53 18 140/83 95 05/13/17 08:20 133/79 05/13/17 07:45 97.6 F 86 16 137/76 93 05/13/17 05:06 97.6 F 87 16 149/85 87 05/13/17 04:00 89 151/86 05/13/17 03:00 87 149/85 05/13/17 02:00 89 148/81 05/13/17 01:00 87 153/86 05/13/17 00:23 98.8 F 91 15 150/82 91 05/12/17 23:00 94 150/82 05/12/17 22:00 92 161/81 05/12/17 21:00 84 190/104 05/12/17 20:20 98.1 F 89 16 179/107 92 05/12/17 17:18 170/86 05/12/17 15:57 98.5 F 91 20 189/104 98 05/12/17 13:24 98.1 F 18 171/91 05/12/17 13:17 98.3 F 18 164/84 92 05/12/17 13:00 161/87 05/12/17 12:30 176/91 05/12/17 12:00 171/94 05/12/17 11:30 192/99 05/12/17 11:00 169/91 05/12/17 10:30 169/94 05/12/17 10:00 194/102 Intake and Output 05/12/17 05/13/17 05/13/17 23:59 07:59 15:59 Intake Total 120 / 120 480 / 480 Output Total 0 / 0 0 / 0 Balance 120 / 120 0 / 0 480 / 480 Intake: IV Fluids 0 / 0 0 / 0 Cardene Premix 40mg/200ml 40 mg 0 / 0 0 / 0 In 200 ml @ 5 MG/HR 25 mls/hr IVC .Q8H [facility] Rx#:[id number] Oral 120 / 120 480 / 480 Output: Urine 0 / 0 0 / 0 Other: Meal Dinner Breakfast Percent of Meal Consumed 95% 100% Weight 99 kg Blood Glucose* 285 280 Patient Weight 05/13/17 23:59 Weight 99 kg - General Appearance General appearance: Present: well-developed, well-nourished, appears started age EENT: Present: mucous membranes moist Neck: Present: no JVD Respiratory: Present: clear Cardiology: Present: no edema, regular rate, regular rhythm Additional Comments: right BKA Gastrointestinal: Present: normoactive bowel sounds, no tenderness Integumentary: Present: warm and dry Neurologic: Present: alert and oriented x3 Psychiatric: Present: mood/affect appropriate, cooperative - Lab 05/13/17 03:42 05/13/17 03:42 Most recent lab results Calcium 8.7 mg/dL (8.6-10.8) 05/13/17 03:42 Phosphorus 8.0 mg/dL (2.3-4.7) H 05/11/17 01:18 Magnesium 2.0 mg/dL (1.6-2.6) 05/11/17 01:18 Consult Discharge Plan - Plan Referrals: Colt Espinoaz MD [Non-Partnered Physician] - 05/18/17 10:45 am NONE,PCP [Primary Care Provider] -
--- NOTE | 2017-05-13 11:43 | Internal Med Progress Note ---
<Paramjit Whipple - Last Filed: 05/13/17 16:52> Date of Encounter: 05/13/17 Time of Encounter: 11:40 - Assessment and plan (1) Hypertensive emergency Current Visit: Yes Status: Acute Assessment and plan: Moderate elevated BP not currently on nicardipine drip hemodialysis planned on continued Wednesday schedule continue to monitor blood pressures continue to follow with nephrology no acute signs or findings of end organ damage due to in-progress management of patients persistently elevated blood pressure, discharge planning pending; hopefully tomorrow (2) Acute encephalopathy Current Visit: Yes Status: Acute Assessment and plan: Resolved and stable (3) Elevated troponin Current Visit: Yes Status: Acute Assessment and plan: Troponins have plateaued despite being above patient's baseline in agreement with cardiology who maintains a patient's elevation of troponin is likely secondary to demand ischemia cardiology has signed off as production support consultant echocardiogram was performed which was limited due to patient refusal to continue the exam; examine demonstrated an EF of ~55% per cardiology recommendation, will have patient follow-up with [facility] 1-2 weeks after discharge (4) Diabetes Current Visit: No Status: Acute Assessment and plan: Psychiatric Aide patient on dietary factors; patient continues to downplay significance of dietary contributor escalated Levemir to 20 units BID; added short-acting insulin with meals continue SSI continue to encourage diabetic diet will continue to monitor Qualifiers: Diabetes mellitus type: type 2 Diabetes mellitus complication status: with circulatory complication Diabetes mellitus complication detail: with other circulatory complications Diabetes mellitus mcc insulin use: with adjunct faculty for medical terminology use Qualified Code(s): E11.59 - Type 2 diabetes mellitus with other circulatory complications; Z79.4 - long term care pharmacist (current) use of insulin (5) ESRD (end stage renal disease) on dialysis Current Visit: No Status: Chronic Assessment and plan: Nephrology consulted on case plan to adhere to [id number] dialysis schedule per nursing, nephrology service has initiated vancomycin IV therapy for positive culture done in their office continue to follow with nephrology will continue to monitor BMP QAM (6) CAD (coronary artery disease) Current Visit: No Status: Chronic Assessment and plan: As above Qualifiers: Coronary Disease-Associated Artery/Lesion type: [place] artery [place] vs. transplanted heart: [place] heart Associated angina: without angina Qualified Code(s): I25.10 - Atherosclerotic heart disease of [place] coronary artery without angina pectoris (7) DVT prophylaxis Current Visit: No Status: Acute Assessment and plan: Continue subQ heparin - Time Spent With Patient less than 15 minutes - Subjective Interval history: Continues to have moderate to severe pain requiring frequent doses of [place] and hydromorphone PO. Patient describes the pain as chronic and multifocal including abdominal and low back; patient does take [place] 10 mg QID on an outpatient basis for this pain pattern. Patient denies any other new or acute complaints. This am, nicardipine drip was held and patient is sustaining systolic blood pressures in the range of 130 to 155. No overnight incidents per nursing. - Constitutional Vitals: Temp Pulse Resp BP Pulse Ox 98.3 F 82 16 155/77 96 05/13/17 10:56 05/13/17 10:56 05/13/17 10:56 05/13/17 10:56 05/13/17 10:56 General appearance: Present: A&O X 0, no acute distress, answers questions appropriately Exam: Patient is sleeping on initial contact this a.m. Patient appears in no acute distress when awakened. - Head Head exam: Present: atraumatic, normocephalic - Eye Eye exam: Present: PERRL, conjuntiva pink, sclera anicteric - Neck Neck exam general surgery: Present: supple, trachea midline - Respiratory Respiratory exam: Present: CTAB. Absent: accessory muscle use, rales, respiratory distress, rhonchi, stridor, wheezes, tachypnea - Cardiovascular Cardiovascular exam: Present: RRR, +S1, +S2. Absent: diastolic murmur, gallop, rubs, systolic murmur - GI/Abdominal GI/Abdominal exam: Present: soft, no peritoneal signs. Absent: distended, firm , guarding, rebound, rigid, tenderness - Extremities Exam Extremities exam: Present: warm, radial pulses palpable and symmetrical. Absent : calf tenderness, cyanotic, mottling, pedal edema - Neurological Exam Neurological exam: Present: oriented X3. Absent: facial droop, speech deficit - Skin Skin exam: Present: dry, intact, normal color. Absent: cyanosis, diaphoretic, mottled, pallor Internal Medicine: Result - Labs CBC & Chem 7: 05/13/17 03:42 05/13/17 03:42 Labs: Short CBC 05/13/17 Range/Units 03:42 WBC 5.2 (4.3-11.1) K/mcL Hgb 8.5 L (11.5-15.4) g/dL Hct 27.7 L (35.3-44.9) % Plt Count 198 (140-400) K/mcL BMP 05/12/17 05/13/17 11:20 03:42 Sodium 138 139 Potassium 4.5 5.2 H Chloride 97 L 99 Carbon Dioxide 29 25 BUN 50 H D 64 H D Creatinine 5.78 H 7.47 H Glucose 187 H 258 H Calcium 8.4 L 8.7 Laboratory Last Values WBC 5.2 K/mcL (4.3-11.1) 05/13/17 03:42 RBC 3.13 M/mcL (3.82-4.97) L 05/13/17 03:42 Hgb 8.5 g/dL (11.5-15.4) L 05/13/17 03:42 Hct 27.7 % (35.3-44.9) L 05/13/17 03:42 MCV 88.5 fL (83.0-100.0) 05/13/17 03:42 MCH 27.2 pg (28.0-33.3) L 05/13/17 03:42 MCHC 30.7 g/dL (31.6-35.5) L 05/13/17 03:42 RDW 16.0 % (11.5-14.5) H 05/13/17 03:42 Plt Count 198 K/mcL (140-400) 05/13/17 03:42 MPV 10.6 fL (9.4-12.4) 05/13/17 03:42 Immature Gran % 0.3 % (0-4) 05/11/17 01:18 Seg Neutrophils % 73.4 % 05/11/17 01:18 Lymphocytes % 14.5 % 05/11/17 01:18 Monocytes % 6.5 % 05/11/17 01:18 Eosinophils % 5.0 % 05/11/17 01:18 Basophils % 0.3 % 05/11/17 01:18 Neutrophils # 4.8 K/mcL (1.6-8.9) 05/11/17 01:18 Lymphocytes # 1.0 K/mcL (0.6-4.6) 05/11/17 01:18 Monocytes # 0.4 K/mcL (0.0-1.3) 05/11/17 01:18 Eosinophils # 0.3 K/mcL (0.0-0.6) 05/11/17 01:18 Basophils # 0.0 K/mcL (0.0-0.2) 05/11/17 01:18 Immature Plt Fraction 4.9 % (1.1-6.1) 05/10/17 15:33 PT 11.9 Seconds (9.4-12.1) 05/10/17 14:58 INR 1.1 05/10/17 14:58 APTT 35.1 Seconds (26.0-36.0) 05/10/17 14:58 Sodium 139 mEq/L (136-145) 05/13/17 03:42 Potassium 5.2 mEq/L (3.5-4.5) H 05/13/17 03:42 Chloride 99 mEq/L (98-109) 05/13/17 03:42 Carbon Dioxide 25 mEq/L (19-29) 05/13/17 03:42 BUN 64 mg/dL (7-20) H D 05/13/17 03:42 Creatinine 7.47 mg/dL (0.57-1.11) H 05/13/17 03:42 Est GFR ( Amer) 8 (> 60) L 05/13/17 03:42 Est GFR (Non-Af Amer) 6 (> 60) L 05/13/17 03:42 BUN/Creatinine Ratio 9 (6-26) 05/13/17 03:42 Glucose 258 mg/dL (70-99) H 05/13/17 03:42 POC Glucose 225 (58-89) H 05/13/17 10:50 Calculated Osmolality 315 (280-300) H 05/13/17 03:42 Calcium 8.7 mg/dL (8.6-10.8) 05/13/17 03:42 Phosphorus 8.0 mg/dL (2.3-4.7) H 05/11/17 01:18 Magnesium 2.0 mg/dL (1.6-2.6) 05/11/17 01:18 Total Bilirubin 0.5 mg/dL (0.2-1.2) 05/10/17 14:58 Direct Bilirubin 0.2 mg/dL (0.0-0.5) 05/10/17 14:58 Indirect Bilirubin 0.3 mg/dL (0.0-1.2) 05/10/17 14:58 AST 10 Units/L (5-34) 05/10/17 14:58 ALT 6 Units/L (0-55) 05/10/17 14:58 Alkaline Phosphatase 109 Units/L (38-126) 05/10/17 14:58 Ammonia 36 mcmol/L (18-72) 05/10/17 14:58 Troponin I 0.20 ng/mL (0-0.03) H* 05/11/17 07:54 B-Natriuretic Peptide 2664 pg/mL (0-100) H 05/10/17 14:58 Serum Total Protein 8.7 g/dL (6.0-8.3) H 05/10/17 14:58 Albumin 3.1 g/dL (3.5-5.0) L 05/10/17 14:58 Globulin 5.6 g/dL (2.4-3.5) H 05/10/17 14:58 Albumin/Globulin Ratio 0.6 (1.1-2.2) L 05/10/17 14:58 TSH 0.384 mcIU/mL (0.350-4.840) 05/10/17 14:58 Ethyl Alcohol < 10 mg/dL (0-10) 05/10/17 14:58 Hep Bs Antigen Nonreactive (Nonreactive) 05/11/17 07:54 Hep Bs Antibody 8.73 mIU/mL 05/11/17 07:54 Specimen Rejected Contaminated 05/12/17 10:10 - ABG Interpretation ABG results: PT/INR, D-dimer PT 11.9 Seconds (9.4-12.1) 05/10/17 14:58 Consult Discharge Plan - Plan Referrals: Colt Espinoza MD [Non-Partnered Physician] - 05/18/17 10:45 am NONE,PCP [Primary Care Provider] - <Elijah Gonzalez - Last Filed: 05/13/17 18:08> Date of Encounter: 05/13/17 - Assessment and plan (1) Hypertensive emergency Current Visit: Yes Status: Acute (2) Acute encephalopathy Current Visit: Yes Status: Acute (3) Diabetes Current Visit: No Status: Acute Qualifiers: Diabetes mellitus type: type 2 Diabetes mellitus complication status: with circulatory complication Diabetes mellitus complication detail: with other circulatory complications Diabetes mellitus mcc insulin use: with mcc use Qualified Code(s): E11.59 - Type 2 diabetes mellitus with other circulatory complications; Z79.4 - longterm (current) use of insulin (4) ESRD (end stage renal disease) on dialysis Current Visit: Yes Status: Chronic (5) Anemia Current Visit: No Status: Chronic Qualifiers: Anemia type: due to chronic kidney disease Chronic kidney disease stage: on chronic dialysis Qualified Code(s): N18.6 - End stage renal disease; D63.1 - Anemia in chronic kidney disease; Z99.2 - Dependence on renal dialysis (6) CAD (coronary artery disease) Current Visit: No Status: Chronic Qualifiers: Coronary Disease-Associated Artery/Lesion type: [place] artery [place] vs. transplanted heart: [place] heart Associated angina: without angina Qualified Code(s): I25.10 - Atherosclerotic heart disease of [place] coronary artery without angina pectoris - Time Spent With Patient My time today was 35min - Constitutional Vitals: Temp Pulse Resp BP Pulse Ox 98.0 F 85 18 160/90 99 05/13/17 16:18 05/13/17 16:18 05/13/17 16:18 05/13/17 16:18 05/13/17 16:18 Internal Medicine: Result - Labs CBC & Chem 7: 05/13/17 03:42 05/13/17 03:42 Labs: Short CBC 05/13/17 Range/Units 03:42 WBC 5.2 (4.3-11.1) K/mcL Hgb 8.5 L (11.5-15.4) g/dL Hct 27.7 L (35.3-44.9) % Plt Count 198 (140-400) K/mcL BMP 05/13/17 03:42 Sodium 139 Potassium 5.2 H Chloride 99 Carbon Dioxide 25 BUN 64 H D Creatinine 7.47 H Glucose 258 H Calcium 8.7 - ABG Interpretation ABG results: PT/INR, D-dimer PT 11.9 Seconds (9.4-12.1) 05/10/17 14:58 - Attending Attestation I examined this patient and my medical decision-making was reviewed with the Resident Physician on 05/13/17. I agree with the documented findings, disposition and treatment plan as described except to the extent set forth below. Ms Benavidez is currently admitted for hypertensive emergency and encephalopathy. She remains moderate to high risk due to potential for worsening cardiac and clinical status. Ms Benavidez is requesting IV pain meds ("I have an IV I don't see why we don't use it.") BP OK so far on PO meds. No fever or chills. No other issues at this time. Exam Alert. Comfortable Heart reg - distant Lungs diminished Abd soft Mucus membranes dry I/P 1. HTN emergency 2. Chronic pain 3. DM Further diagnoses and plan as above. Anticipate d/c tomorrow.
[2017-05-13] MEDS: *HR* OxyCODONE/APAP 5/325 TABLET PO PRN (20:48)
[2017-05-14] MEDS: *HR* HYDROcodone/Acet 10/325 mg TABLET PO PRN (01:12)
[2017-05-14] MEDS: *HR* OxyCODONE/APAP 5/325 TABLET PO PRN ×2 (06:03→12:49)
[2017-05-14] MEDS: *HR* Heparin 5,000 UNIT/ML VIAL SQ SCH (06:10)
[2017-05-14 06:53] LABS: Calcium 8.7 mg/dL (8.6-10.8)
[2017-05-14 06:55] LABS: Potassium 6.7 mEq/L (3.5-4.5)
[2017-05-14 07:02] LABS: Hematocrit 28.2 % (35.3-44.9); Hemoglobin 8.6 g/dL (11.5-15.4); Mean Corpuscular HGB Conc 30.5 g/dL (31.6-35.5); Mean Corpuscular Hemoglobin 28.1 pg (28.0-33.3); Mean Corpuscular Volume 92.2 fL (83.0-100.0); Platelet Count 200 K/mcL (140-400); Red Blood Count 3.06 M/mcL (3.82-4.97); Red Cell Distribution Width 15.8 % (11.5-14.5)
[2017-05-14] MEDS ORDERED: 0.9 % Sodium Chloride 250 ML IVC PRN (07:26)
[2017-05-14] MEDS ORDERED: *HR* Heparin 10,000 UNIT/10 ML VIAL IV PRN (07:26)
[2017-05-14] MEDS: Lisinopril 20 MG TABLET PO SCH (08:14)
[2017-05-14] MEDS: amLODIPine 5 MG TABLET PO SCH (08:14)
[2017-05-14] MEDS: Insulin LISPRO 300 UNITS/3 ML VIAL SQ SCH ×4 (08:14→12:51)
[2017-05-14] MEDS: Aspirin Enteric Coated 81 MG Tablet PO SCH (08:14)
--- NOTE | 2017-05-14 08:21 | Event Note ---
<Paramjit Whipple - Last Filed: 05/14/17 08:18> Date of Encounter: 05/14/17 Time of Encounter: 08:18 Patient is no longer on nicardipine drip into sustaining blood pressures of systolic and 176; has not had any lapses up into the 200s since initial presentation. Patient also has hyperkalemia at 6.7 this a.m. Patient is pending hemodialysis. Checked EKG as well this morning which shows some modest hyperacute t waves that are new as compared to recent EKG. Considered temporizing measures including insulin or calcium, however, patient is slated for hemodialysis within the next 45 minutes so may defer until then. If for any reason that hemodialysis is delayed, will give calcium gluconate in the interim. Overall, patient's clinical picture is improved patient is likely viable candidate for discharge. We will reassess after dialysis. <Elijah Gonzalez - Last Filed: 05/14/17 13:51> Date of Encounter: 05/14/17 I discussed plan as above with Dr Whipple and agree.
[2017-05-14] MEDS: Insulin DETEMIR 100 UNIT/ML X5UNITS SQ SCH (08:23)
--- NOTE | 2017-05-14 08:53 | Nephrology Progress Note ---
Date of Encounter: 05/14/17 Time of Encounter: 08:20 - Assessment and Plan (1) ESRD (end stage renal disease) on dialysis Current Visit: Yes Status: Chronic Off cardene drip. SBP increasing, 160-170. Will increase Amlodipine. K 6.7. HD today, keeping MWF schedule. Orders given. Subjective Principal diagnosis: elevated troponin Interval history: Eating breakfast, . Watching tv. Denies any numbness or tingling. No new complaints. Objective - Vital Signs Vital signs: Vital Signs Temp Pulse Resp BP Pulse Ox 05/14/17 07:27 98.3 F 82 16 177/108 92 05/14/17 04:00 98.6 F 85 174/92 95 05/14/17 00:44 169/95 05/14/17 00:22 98.3 F 78 18 169/95 95 05/13/17 20:03 98.3 F 82 18 158/95 94 05/13/17 16:18 98.0 F 85 18 160/90 99 05/13/17 11:51 80 05/13/17 10:56 98.3 F 82 16 155/77 96 05/13/17 10:20 84 18 136/84 05/13/17 08:53 18 140/83 95 Intake and Output 05/13/17 05/14/17 05/14/17 23:59 07:59 15:59 Intake Total 440 / 440 Balance 440 / 440 Intake: Oral 440 / 440 Other: Meal Dinner Percent of Meal Consumed 80% Weight 99.4 kg Blood Glucose* 179 222 Patient Weight 05/14/17 23:59 Weight 99.4 kg - General Appearance General appearance: Present: well-developed, well-nourished, appears started age EENT: Present: mucous membranes moist Neck: Present: no JVD Respiratory: Present: clear Cardiology: Present: no edema, regular rate, regular rhythm Additional Comments: right BKA Gastrointestinal: Present: normoactive bowel sounds, no tenderness Integumentary: Present: warm and dry Neurologic: Present: alert and oriented x3 Psychiatric: Present: mood/affect appropriate, cooperative - Lab 05/14/17 06:34 05/14/17 06:34 Most recent lab results Calcium 8.7 mg/dL (8.6-10.8) 05/14/17 06:34 Phosphorus 8.0 mg/dL (2.3-4.7) H 05/11/17 01:18 Magnesium 2.0 mg/dL (1.6-2.6) 05/11/17 01:18 Consult Discharge Plan - Plan Referrals: Colt Espinoza MD [Non-Partnered Physician] - 05/18/17 10:45 am NONE,PCP [Primary Care Provider] -
[2017-05-14] MEDS ORDERED: amLODIPine 5 MG TABLET PO SCH (09:00)
[2017-05-14] MEDS: Vancomycin 1,000 MG in D5% in Water 250 ML IVPB SCH (09:26)
[2017-05-14] MEDS ORDERED: 0.9 % Sodium Chloride 1,000 ML ONE (11:19)
--- NOTE | 2017-05-14 12:01 | Internal Med Progress Note ---
Date of Encounter: 05/14/17 Time of Encounter: 10:00 - Assessment and plan (1) Hypertensive emergency Current Visit: Yes Status: Acute (2) Acute encephalopathy Current Visit: Yes Status: Acute (3) Elevated troponin Current Visit: Yes Status: Acute (4) Diabetes Current Visit: No Status: Acute Qualifiers: Diabetes mellitus type: type 2 Diabetes mellitus complication status: with circulatory complication Diabetes mellitus complication detail: with other circulatory complications Diabetes mellitus parts counterman insulin use: with fdc use Qualified Code(s): E11.59 - Type 2 diabetes mellitus with other circulatory complications; Z79.4 - FDC (current) use of insulin (5) ESRD (end stage renal disease) on dialysis Current Visit: No Status: Chronic (6) CAD (coronary artery disease) Current Visit: No Status: Chronic Qualifiers: Coronary Disease-Associated Artery/Lesion type: [place] artery [place] vs. transplanted heart: [place] heart Associated angina: without angina Qualified Code(s): I25.10 - Atherosclerotic heart disease of [place] coronary artery without angina pectoris (7) DVT prophylaxis Current Visit: No Status: Acute - Subjective Interval history: No acute complaints. Nicardipine drip discontinued and patient maintains blood pressures between 150-170 systolic. Patient is scheduled to have hemodialysis this a.m. Discussed discharging patient this a.m. and patient is eager to go home. Hemodialysis will be completed prior to discharge. - Constitutional Vitals: Temp Pulse Resp BP Pulse Ox 98.3 F 84 16 177/101 97 05/14/17 10:00 05/14/17 10:00 05/14/17 10:00 05/14/17 11:00 05/14/17 10:00 General appearance: Present: A&O X 0, no acute distress, answers questions appropriately Internal Medicine: Result - Labs CBC & Chem 7: 05/14/17 06:34 05/14/17 06:34 Labs: Short CBC 05/14/17 Range/Units 06:34 WBC 6.2 (4.3-11.1) K/mcL Hgb 8.6 L (11.5-15.4) g/dL Hct 28.2 L (35.3-44.9) % Plt Count 200 (140-400) K/mcL BMP 05/14/17 06:34 Sodium 135 L Potassium 6.7 H* D Chloride 98 Carbon Dioxide 21 BUN 87 H D Creatinine 9.39 H Glucose 220 H Calcium 8.7 - ABG Interpretation ABG results: PT/INR, D-dimer PT 11.9 Seconds (9.4-12.1) 05/10/17 14:58 Consult Discharge Plan - Plan Referrals: Colt Espinoza MD [Non-Partnered Physician] - 05/18/17 10:45 am NONE,PCP [Primary Care Provider] -
--- NOTE | 2017-05-14 12:07 | Discharge Summary ---
<Paramjit Whipple - Last Filed: 05/14/17 17:11> Date of Encounter: 05/14/17 Time of Encounter: 08:45 - Discharge Diagnosis (1) Hypertensive emergency Priority: Primary Status: Acute (2) Acute encephalopathy Priority: Secondary Status: Acute (3) Elevated troponin Priority: Secondary Status: Acute (4) Diabetes Priority: Secondary Status: Acute Qualifiers: Diabetes mellitus type: type 2 Diabetes mellitus complication status: with circulatory complication Diabetes mellitus complication detail: with other circulatory complications Diabetes mellitus custodial insulin use: with long term care phlebotomist use Qualified Code(s): E11.59 - Type 2 diabetes mellitus with other circulatory complications; Z79.4 - termite helper (current) use of insulin (5) ESRD (end stage renal disease) on dialysis Priority: Secondary Status: Chronic (6) CAD (coronary artery disease) Priority: Secondary Status: Chronic Qualifiers: Coronary Disease-Associated Artery/Lesion type: circle artery [place] vs. transplanted heart: circle heart Associated angina: without angina Qualified Code(s): I25.10 - Atherosclerotic heart disease of circle coronary artery without angina pectoris - Discharge Medications Prescriptions: amLODIPine [Norvasc] 10 mg PO BID #60 tablet Aspirin Enteric Coated [Aspirin EC] 81 mg PO DAILY #30 tablet. Atorvastatin [Lipitor] 40 mg PO HS #30 tablet Clopidogrel [Plavix] 75 mg PO DAILY #30 tablet Home Medications: HYDROcodone/Acet 10/325 mg [[place] 10-325 mg] 1 tab PO QID PRN 01/21/16 [History] Insulin ASPART [NovoLOG] 5 - 10 unit SQ TIDWM PRN 04/21/16 [History] Clopidogrel [Plavix] 75 mg PO DAILY tablet 04/23/16 [Rx] Lisinopril [Zestril] 20 mg PO BID 60 Days tablet 11/13/16 [Rx] Carvedilol [Coreg] 25 mg PO BIDWM 01/23/17 [History] CloNIDine Patch [Catapres-Tts] 0.2 mg TD QWEEK 01/23/17 [History] Insulin DETEMIR [Levemir] 60 - 80 unit SQ HS 01/23/17 [History] Colesevelam HCl [Welchol] 625 mg PO TID 04/06/17 [History] Aspirin Enteric Coated [Aspirin EC] 81 mg PO DAILY #30 tablet. 05/14/17 [Rx] Atorvastatin [Lipitor] 40 mg PO HS #30 tablet 05/14/17 [Rx] Clopidogrel [Plavix] 75 mg PO DAILY #30 tablet 05/14/17 [Rx] amLODIPine [Norvasc] 10 mg PO BID #60 tablet 05/14/17 [Rx] Allergies/Adverse Reactions: 3 Allergy/AdvReac Type Severity Reaction Status Date / Time Amoxicillin Allergy Hives Verified 05/10/17 18:16 metoclopramide [From Reglan] AdvReac Shakiness Verified 05/10/17 18:16 ondansetron AdvReac Vomiting Verified 05/10/17 18:16 [From Zofran (as hydrochloride)] Date of admission: 05/10/17 19:53 Primary care physician: PCP NONE Consults: 05/10/17 20:06 Consult to Nephrology [CONS] Routine Consulting Provider: [facility] Reason for Consult: Dialysis patient Time Notified: 20:07 Call Completed: No 05/10/17 21:30 Consult to Cardiology [CONS] Routine Comment: Consulting Provider: Cardiology Edna Reason for Consult: hypertensive encephalopathy, NSTEMI Call Completed: No 05/12/17 09:00 Consult to Dialysis [CONS] ONCE 05/14/17 07:30 Consult to Dialysis [CONS] ONCE Discharging clinician: Paramjit Whipple Anticipated date of discharge: 05/14/17 - Patient Status Disposition: Home, Self-Care Condition: Fair Functional capacity at discharge: wheelchair bound Overall status at discharge: patient is progressing back to baseline - Discharge Instructions Instructions: Aspirin (By mouth), Amlodipine (By mouth), Atorvastatin (By mouth ), Clopidogrel (By mouth), Chest Pain (DC), Meal Planning with Diabetes Exchanges (DC) Follow Up With: Colt Espinoza MD [Non-Partnered Physician] - 05/18/17 10:45 am NONE,PCP [Primary Care Provider] - Additional Instructions: Follow-up with your primary care provider within one to 2 weeks follow-up nephrology at regular scheduled dialysis appointment on Wednesday please take all medications as prescribed please attempt to adhere to diabetic diet as we discussed have any changes, new symptoms, or recurrence of previous symptoms, please return to the emergency department for further evaluation - Diet and Activity Activity: resume usual activities as tolerated Diet: diabetic diet Interval History: No acute complaints. Nicardipine ip discontinued and patient maintains blood pressures between 150-170 systolic. Patient is scheduled to have hemodialysis this a.m. Discussed discharging patient this a.m. and patient is eager to go home. Hemodialysis will be completed prior to discharge. Hospital course: Ms. Benavidez is a 36 year old female with history significant of type I diabetes, hypertension, end-stage renal disease on hemodialysis who presented to the emergency department for significantly elevated blood pressures as well as apparent altered mentation. Initial blood pressures were elevated above 200. Patient was started on a nicardipine dripping admitted to step down unit for hypertensive emergency. Patient has received 2 courses of hemodialysis as an inpatient. Blood pressures continue to be elevated though significantly improved over admitting pressures. They have been sustained in systolic range between 150-170 off nicardipine drip. Patient did have significant pain throughout hospital course which is not new and was controlled with PO medications. Patient did have a mild plateaued trend of elevated troponins above baseline; cardiology was consulted but signed off considering these healthcare representative of demand ischemia. Patient will be discharged this afternoon in improved and stable condition. Several medication changes were made at recommendation of cardiology and nephrology and will be written as outpatient prescriptions for patient. Patient will require close follow up by her primary care physician and telecommunications sales representative. - Time Spent with Patient Total time spent providing and/or coordinating discharge services: Less than 30 minutes - Constitutional Vitals: Temp Pulse Resp BP Pulse Ox 98.3 F 84 16 177/101 97 05/14/17 10:00 05/14/17 10:00 05/14/17 10:00 05/14/17 11:00 05/14/17 10:00 General appearance: Present: A&O X 0, no acute distress, answers questions appropriately Exam: CONSTITUTIONAL: Alert and oriented X3, well-nourished, well appearing, in no apparent distress HEAD: Normocephalic; atraumatic. EYES: PERRL, no scleral icterus. NOSE: The nose is normal in appearance without rhinorrhea RESP: Normal chest excursion with respiration; breath sounds clear and equal bilaterally; no wheezes, rhonchi, or rales CARD: Regular rhythm, without murmurs, rub or gallop ABD: Non-distended; non-tender, soft,without rigidity, rebound or guarding SKIN: Normal for age and race; warm and dry; no apparent lesions <CarlosModestoElijah A - Last Filed: 05/14/17 17:54> Date of Encounter: 05/14/17 - Discharge Diagnosis (1) Hypertensive emergency Status: Acute (2) Acute encephalopathy Status: Resolved (3) Diabetes Status: Acute Qualifiers: Diabetes mellitus type: type 2 Diabetes mellitus complication status: with circulatory complication Diabetes mellitus complication detail: with other circulatory complications Diabetes mellitus long term care phlebotomist insulin use: with long term care phlebotomist use Qualified Code(s): E11.59 - Type 2 diabetes mellitus with other circulatory complications; Z79.4 - penitentiary (current) use of insulin (4) ESRD (end stage renal disease) on dialysis Priority: Secondary Status: Chronic (5) Anemia Priority: Secondary () Status: Chronic Qualifiers: Anemia type: due to chronic kidney disease Chronic kidney disease stage: on chronic dialysis Qualified Code(s): N18.6 - End stage renal disease; D63.1 - Anemia in chronic kidney disease; Z99.2 - Dependence on renal dialysis (6) CAD (coronary artery disease) Status: Chronic Qualifiers: Coronary Disease-Associated Artery/Lesion type: circle artery [place] vs. transplanted heart: circle heart Associated angina: without angina Qualified Code(s): I25.10 - Atherosclerotic heart disease of circle coronary artery without angina pectoris Procedures/tests Complete & Pending: Procedures Performed prior 72 hours Category Date Time Status ECG 12 lead ECG [ECG] Routine Y 05/14/17 07:31 Completed Date of admission: 05/10/17 19:53 Primary care physician: PCP NONE Consults: 05/10/17 20:06 Consult to Nephrology [CONS] Routine Consulting Provider: [facility] Ganesh SUAREZ Reason for Consult: Dialysis patient Time Notified: 20:07 Call Completed: No 05/10/17 21:30 Consult to Cardiology [CONS] Routine Comment: Consulting Provider: Cardiology Edna Reason for Consult: hypertensive encephalopathy, NSTEMI Call Completed: No 05/12/17 09:00 Consult to Dialysis [CONS] ONCE 05/14/17 07:30 Consult to Dialysis [CONS] ONCE Hospital course: Ms. Benavidez is a 36 year old female - Time Spent with Patient Total time spent providing and/or coordinating discharge services: 28min - Constitutional Vitals: Temp Pulse Resp BP Pulse Ox 97.7 F 84 17 171/83 97 05/14/17 12:15 05/14/17 11:27 05/14/17 12:15 05/14/17 13:08 05/14/17 11:27 - Attending Attestation I examined this patient and my medical decision-making was reviewed with the Resident Physician on 05/14/17. I agree with the documented findings, disposition and treatment plan as described except to the extent set forth below. Ms Benavidez has been admitted for hypertensive emergency. Her blood pressure has been stable off IV med for last 24 hours. She had dialysis today. She is afebrile and ready for discharge home. Exam Alert. Comfortable Heart reg No wheeze Plan D/C home today.
[2017-05-14 13:17] VITALS: BP 171/83
--- NOTE | 2017-05-14 18:31 | Electrocardiograph Report ---
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
== END 2017-05-14 15:26 | disposition home or self-care (01) | DRG 304 ==
LOC: EMEROO 12:36 → 2ANU 12:36 → SUATTDRO 17:39 → 2ANU 17:40 → 2NNU 21:05
PROVIDERS: ADMIT Internal Medicine; ATTEND Internal Medicine

== ENCOUNTER 2017-06-22 14:05 | Inpatient (IN) ==
[2017-06-22] MEDS ORDERED: *HR* Promethazine 25 MG/ML VIAL IVP ONE ×2 (14:21→16:18)
[2017-06-22] MEDS ORDERED: *HR* HYDROmorphone (PF) 1 MG/ML SYRINGE IVP ONE ×2 (14:21→16:18)
--- NOTE | 2017-06-22 14:59 | Emergency Department Note ---
Disposition Clinical Impression: Dehydration, Benign hypertension with ESRD (end-stage renal disease), Accelerated hypertension Diarrhea Qualifiers: Diarrhea type: unspecified type Qualified Code(s): R19.7 - Diarrhea, unspecified Disposition: Admitted As Inpatient Condition: Good Time of Disposition: 17:59 Nausea/Vomiting/Diarrhea HPI - General Chief complaint: ED Nausea/Vomiting/Diarrhea Stated complaint: vomiting, dizziness Time Seen by Provider: 06/22/17 14:10 Source: patient, EMS Limitations: no limitations Nursing Notes Reviewed: Yes Vital Signs Reviewed: Yes - History of Present Illness HPI Narrative: 36-year-old female end-stage renal disease dialysis Wednesday presents to the ED via EMS for nausea vomiting diarrhea and abdominal pain. Abdominal pain over the past 3 days. She describes a diffuse cramping sensation to the upper and lower abdomen. Loose diarrhea that started today while at dialysis. She has some nausea vomiting that started yesterday. Abdominal pain is worse with the bowel movements. She received only 2 hours of her dialysis treatment. Here the patient has had over 30 minutes of persistent diarrhea. Nausea is controlled with medications. Patient denies any recent antibiotic use. Denies any recent hospitalization. Denies any recent travel. Denies any fevers. No cough or rhinorrhea. Patient reports history of hysterectomy. No history of C. diff infection. Senior Support Analyst is Dr. Aly. Contact precautions initiated. Pt Subjective Complaint: nausea, vomiting, diarrhea, abdominal pain Onset (ago): day(s) Description of Diarrhea: water Associated Abdominal Pain: Yes If pain, Location of pain: diffuse Severity: moderate Consistency: constant Worsens with: bowel movement - Related Data Home Medications Medication Instructions Recorded Confirmed HYDROcodone/Acet 10/325 mg [[place] 1 tab PO QID PRN 01/21/16 04/27/17 10-325 mg] Insulin ASPART [NovoLOG] 5 - 10 unit SQ TIDWM PRN 04/21/16 04/27/17 Carvedilol [Coreg] 25 mg PO BIDWM 01/23/17 04/27/17 CloNIDine Patch [Catapres-Tts] 0.2 mg TD QWEEK 01/23/17 04/27/17 Insulin DETEMIR [Levemir] 60 - 80 unit SQ HS 01/23/17 04/27/17 Colesevelam HCl [Welchol] 625 mg PO TID 04/06/17 04/06/17 Previous Rx's Medication Instructions Recorded Clopidogrel [Plavix] 75 mg PO DAILY tablet 04/23/16 Lisinopril [Zestril] 20 mg PO BID 60 Days tablet 11/13/16 Aspirin Enteric Coated [Aspirin EC] 81 mg PO DAILY #30 tablet. 05/14/17 Atorvastatin [Lipitor] 40 mg PO HS #30 tablet 05/14/17 Clopidogrel [Plavix] 75 mg PO DAILY #30 tablet 05/14/17 amLODIPine [Norvasc] 10 mg PO BID #60 tablet 05/14/17 Allergies Allergy/AdvReac Type Severity Reaction Status Date / Time Amoxicillin Allergy Hives Verified 06/22/17 14:08 metoclopramide [From Reglan] AdvReac Shakiness Verified 06/22/17 14:08 ondansetron AdvReac Vomiting Verified 06/22/17 14:08 [From Zofran (as hydrochloride)] All systems ED: reviewed and negative except as stated. Review of Systems: As Per HPI Constitutional: Denies: fever, chills ENT ED: Denies: congestion Cardiovascular: Denies: chest pain Respiratory: Denies: cough, dyspnea Gastrointestinal: Reports: abdominal pain, nausea, vomiting, diarrhea. Denies: hematemesis, melena, hematochezia Genitourinary: Denies: urgency, dysuria Musculoskeletal: Denies: back pain, neck pain Integumentary: Denies: rash, abrasion, lesions Neurological: Denies: headache Past Medical History - Past Medical History Attestation: Yes The following information was validated with the patient. Source: patient Medical history: Reports: coronary artery disease, diabetes, dialysis, hypertension, renal disease Surgical history: Reports: angioplasty/stent, hip replacement, hysterectomy, other Psychiatric history: Reports: anxiety, depression OYSTER GROWER history: Reports: no OYSTER GROWER history, other - Social History Smoking Status: Former smoker Smokeless Tobacco Status: No Alcohol use: Reports: none Drug use: Reports: none Physical Exam - General Limitations: no limitations General appearance: alert, in no apparent distress - Head Head exam: atraumatic, normocephalic, normal inspection - Eye Eye exam: Present: normal appearance, PERRL, EOMI - ENT ENT exam: normal exam, normal oropharynx, mucous membranes dry - Neck Neck exam: Present: normal inspection, full ROM, trachea midline - Chest Chest inspection: Present: normal inspection, symmetric chest wall rise, other ( dialysis port in right anterior chest) - Respiratory Respiratory exam: Present: normal lung sounds bilaterally - Cardiovascular Cardiovascular exam: Present: normal rhythm, tachycardia, normal heart sounds - Abdominal Exam Abdominal exam: Present: soft, tenderness, hyperactive bowel sounds. Absent: distention, guarding, rebound, rigidity, Rovsing's sign, tenderness at McBurney' s Point Abdominal tenderness: Present: diffuse - Extremities Exam Extremities exam: Present: other (below knee right amputation, left midfoot amputation) - Back Exam Back exam: Present: normal inspection, full ROM. Absent: tenderness - Neurological Exam Neurological exam: Present: alert, oriented X3 - Skin Skin exam: Present: warm, dry, intact, normal color. Absent: rash, cyanosis, diaphoresis Course - Reevaluation(s) Reevaluation #1: Patient has had multiple loose bowels here the emergency department. Concern for C. diff. Her stool was tested in negative. Patient appears slightly dehydrated due to the symptoms and was given a 500 mL normal saline bolus. Her blood pressure continues to the elevated here. Oral mucosal membranes are tacky. Heart's regular rate and rhythm. Lungs are clear auscultation bilaterally. Her abdomen is diffusely tender with no focal tenderness. No peritoneal signs. Review for basic labs show anionic gap of 15. Glucose is 230. Serum ketones positive. No acidosis pH 7.35. Bicarb 24. Troponin is elevated 0.15 but this is lowers or trends. She denies any chest pain. EKG does not reveal acute ischemic changes. CT and abdomen and pelvis to not reveal any acute abnormality. Suspect this is unlikely gastroenteritis. Due to her intractable diarrhea and incomplete dialysis session will admit for observation and monitoring. Impression is badominal pain, intractible diarrhea, incomplete HD, accelerated hypertension. Patient is in agreement with this plan. Patient's blood pressure improved with labetalol from initial 250 systolic to SBP [address] 06/22/17 14:22 IMPRESSION: 1. No acute abnormality is detected. 2. Again, there is periventricular low-attenuation, greater on the left frontal region. As recommended previously, if that has not been previously evaluated with MRI, MRI would be recommended in a patient this age. 3. There are vascular calcifications noted within the vertebral arteries, advanced for the patient's age. Any risk factors for atherosclerosis should be managed aggressively. D/ / Adryan Noe MD / Adryan Noe MD Interpreting Provider: Adryan Noe MD - Consultations Consultation #1: Spoke with on-call hospitalist ifeoma Verdin to admit for abdominal pain, intractible nausea/diarrhea, ESRD incomplete dialysis, accelerated hypertension. No further orders at this time Vital Signs Temperature 98.7 F 06/22/17 14:06 Pulse Rate 95 06/22/17 14:06 Respiratory Rate 20 06/22/17 14:06 Blood Pressure 255/137 06/22/17 14:06 O2 Sat by Pulse Oximetry 100 06/22/17 14:06 Temperature 98.7 F 06/22/17 14:06 Pulse Rate 98 06/22/17 19:05 Respiratory Rate 20 06/22/17 19:05 Blood Pressure 201/103 06/22/17 19:05 O2 Sat by Pulse Oximetry 100 06/22/17 19:05 Oxygen Delivery Oxygen Delivery Room Air Nausea/Vomiting/Diarrhea - MDM Narrative Medical decision making narrative: Patient was discussed with my attending physician who agrees with ED management and final disposition. They independently evaluated the patient. Please refer to their attestation to this encounter for additional information. This note was generated by [employer] voice recognition software and as a result grammatical or spelling errors may occur using this program. - Differential Diagnosis Likely: gastroenteritis, clostridium difficile infection - Medical Records Medical records reviewed: Yes I reviewed the patient's medical records. - Lab Data Lab results reviewed: Yes I reviewed the patient's lab results. Result diagrams: 06/22/17 15:32 06/22/17 15:32 Lab Results 06/22/17 06/22/17 06/22/17 Range/Units 15:25 15:32 15:32 WBC 10.5 (4.3-11.1) K/mcL RBC 4.42 (3.82-4.97) M/mcL Hgb 12.2 (11.5-15.4) g/dL Hct 37.9 (35.3-44.9) % MCV 85.7 D (83.0-100.0) fL MCH 27.6 L (28.0-33.3) pg MCHC 32.2 (31.6-35.5) g/dL RDW 16.8 H (11.5-14.5) % Plt Count 258 (140-400) K/mcL MPV 10.0 (9.4-12.4) fL Immature Gran % 0.5 (0-4) % Seg Neutrophils % 87.4 % Lymphocytes % 2.9 % Monocytes % 6.0 % Eosinophils % 3.0 % Basophils % 0.2 % Neutrophils # 9.1 H (1.6-8.9) K/mcL Lymphocytes # 0.3 L (0.6-4.6) K/mcL Monocytes # 0.6 (0.0-1.3) K/mcL Eosinophils # 0.3 (0.0-0.6) K/mcL Basophils # 0.0 (0.0-0.2) K/mcL PT (9.4-12.1) Seconds INR APTT (26.0-36.0) Seconds VBG pH (7.32-7.42) pH Units VBG pCO2 (41-51) mmHg VBG pO2 (25-50) mmHg VBG HCO3 (21-27) mEq/L Sodium 133 L (136-145) mEq/L Potassium 4.1 (3.5-5.1) mEq/L Chloride 96 L (98-107) mEq/L Carbon Dioxide 22 L (23-29) mEq/L BUN 45 H (6-20) mg/dL Creatinine 6.12 H (0.60-1.20) mg/dL Est GFR ( Amer) 10 L (> 60) Est GFR (Non-Af Amer) 8 L (> 60) BUN/Creatinine Ratio 7 (6-26) Glucose 238 H (70-105) mg/dL Calculated Osmolality 295 (280-300) Calcium 9.2 (8.6-10.3) mg/dL Troponin I (< 0.04) ng/mL Beta-Hydroxybutyric Acd (0.02-0.27) mmol/L Stl C. diff Tox B Gene Negative (Negative) 06/22/17 06/22/17 06/22/17 Range/Units 15:32 15:32 17:00 WBC (4.3-11.1) K/mcL RBC (3.82-4.97) M/mcL Hgb (11.5-15.4) g/dL Hct (35.3-44.9) % MCV (83.0-100.0) fL MCH (28.0-33.3) pg MCHC (31.6-35.5) g/dL RDW (11.5-14.5) % Plt Count (140-400) K/mcL MPV (9.4-12.4) fL Immature Gran % (0-4) % Seg Neutrophils % % Lymphocytes % % Monocytes % % Eosinophils % % Basophils % % Neutrophils # (1.6-8.9) K/mcL Lymphocytes # (0.6-4.6) K/mcL Monocytes # (0.0-1.3) K/mcL Eosinophils # (0.0-0.6) K/mcL Basophils # (0.0-0.2) K/mcL PT 11.1 (9.4-12.1) Seconds INR 1.0 APTT 35.1 (26.0-36.0) Seconds VBG pH (7.32-7.42) pH Units VBG pCO2 (41-51) mmHg VBG pO2 (25-50) mmHg VBG HCO3 (21-27) mEq/L Sodium (136-145) mEq/L Potassium (3.5-5.1) mEq/L Chloride (98-107) mEq/L Carbon Dioxide (23-29) mEq/L BUN (6-20) mg/dL Creatinine (0.60-1.20) mg/dL Est GFR ( Amer) (> 60) Est GFR (Non-Af Amer) (> 60) BUN/Creatinine Ratio (6-26) Glucose (70-105) mg/dL Calculated Osmolality (280-300) Calcium (8.6-10.3) mg/dL Troponin I 0.15 H* (< 0.04) ng/mL Beta-Hydroxybutyric Acd 0.51 H (0.02-0.27) mmol/L Stl C. diff Tox B Gene (Negative) 06/22/17 Range/Units 17:19 WBC (4.3-11.1) K/mcL RBC (3.82-4.97) M/mcL Hgb (11.5-15.4) g/dL Hct (35.3-44.9) % MCV (83.0-100.0) fL MCH (28.0-33.3) pg MCHC (31.6-35.5) g/dL RDW (11.5-14.5) % Plt Count (140-400) K/mcL MPV (9.4-12.4) fL Immature Gran % (0-4) % Seg Neutrophils % % Lymphocytes % % Monocytes % % Eosinophils % % Basophils % % Neutrophils # (1.6-8.9) K/mcL Lymphocytes # (0.6-4.6) K/mcL Monocytes # (0.0-1.3) K/mcL Eosinophils # (0.0-0.6) K/mcL Basophils # (0.0-0.2) K/mcL PT (9.4-12.1) Seconds INR APTT (26.0-36.0) Seconds VBG pH 7.35 (7.32-7.42) pH Units VBG pCO2 43 (41-51) mmHg VBG pO2 55 H (25-50) mmHg VBG HCO3 24 (21-27) mEq/L Sodium (136-145) mEq/L Potassium (3.5-5.1) mEq/L Chloride (98-107) mEq/L Carbon Dioxide (23-29) mEq/L BUN (6-20) mg/dL Creatinine (0.60-1.20) mg/dL Est GFR ( Amer) (> 60) Est GFR (Non-Af Amer) (> 60) BUN/Creatinine Ratio (6-26) Glucose (70-105) mg/dL Calculated Osmolality (280-300) Calcium (8.6-10.3) mg/dL Troponin I (< 0.04) ng/mL Beta-Hydroxybutyric Acd (0.02-0.27) mmol/L Stl C. diff Tox B Gene (Negative) - Radiology Data Radiology results reviewed: Yes I reviewed the patient's radiology results. Head CT 06/22/17 14:22 IMPRESSION: 1. No acute abnormality is detected. 2. Again, there is periventricular low-attenuation, greater on the left frontal region. As recommended previously, if that has not been previously evaluated with MRI, MRI would be recommended in a patient this age. 3. There are vascular calcifications noted within the vertebral arteries, advanced for the patient's age. Any risk factors for atherosclerosis should be managed aggressively. D/ / Adryan Noe MD / Adryan Noe MD Interpreting Provider: Adryan Noe MD - EKG Data EKG attestation: Yes I reviewed and interpreted this EKG. EKG results narrative: EKG performed 1520 normal sinus rhythm 95 bpm, left atrial enlargement, minimal ST depression in lateral leads the 5 and V-6, T wave inversion in lateral lead 1 and lead aVL, intervals are within normal limits. These findings are slightly new from prior EKG performed 05/14/2017 which shows consistent T wave inversion in lead I and aVL but no ST changes in V5 V-6. Denies any chest pain. Attestation Statement - Attestation Attestation: I, Terrance Barksdael DO, examined this patient [id number] and my medical decision-making was reviewed with Diogenes Arauz DO ), Resident Physician. I agree with the documented findings, disposition and treatment plan as described except to the extent set forth below. Please see my progress notes for details. 36-year-old female presents emergency room from dialysis for generalized weakness dizziness and profuse diarrhea. Her blood pressure was elevated to 250 range. Patient is well known to our facility has been seen multiple times for diabetic related issues, dialysis related issues, respiratory problems, infectious etiology. Patient presentation does have profuse diarrhea and retching. Lungs are clear on evaluation. Abdomen is soft she does not have any guarding or rigidity. Patient has poor vascular access with our vascular access team was contacted to have them evaluate the patient emergency room place IV access this time. For resuscitation be given as needed. Antibiotic regimen will be started as needed. Patient will have screening laboratory workup including chest x-ray and screening labs. Urinalysis to be collected. Vital signs are otherwise unremarkable except for the hypertension. Patient is alert she is oriented she answers questions appropriately. Patient will screening labs completed looking for diabetic ketoacidosis and infectious pathology. Patient stable at this point. She will require admission was treatment course is established and resulted. Clostridium difficile cultures will be sent for evaluation as well. Patient informed of plan she is comfortable with this time. See detailed documentation of physical exam, medical intervention, medical decision-making and disposition. Patient has family centered specialist in place and received 2-1/2 hours of her 3-1/2 hour dialysis treatment today. 1835 Patient has stabilization of the symptoms in the emergency room. Concern is noted for possible gastritis secondary to known etiology. Labs are otherwise unremarkable except for being slightly ketotic. Other labs are stable in arranged at this time. Fluids given here in the emergency room. Patient will be admitted for observation make sure she does not have any occlusive fluid resuscitated with her needs or issues. Patient will be admitted this time for definitive evaluation.
[2017-06-22 15:40] LABS: Basophils % 0.2 %; Eosinophils # 0.3 K/mcL (0.0-0.6); Hematocrit 37.9 % (35.3-44.9); Hemoglobin 12.2 g/dL (11.5-15.4); Immature Granulocytes % 0.5 % (0-4); Lymphocytes # 0.3 K/mcL (0.6-4.6); Lymphocytes % 2.9 %; Mean Corpuscular HGB Conc 32.2 g/dL (31.6-35.5); Mean Corpuscular Hemoglobin 27.6 pg (28.0-33.3); Monocytes # 0.6 K/mcL (0.0-1.3); Neutrophils # 9.1 K/mcL (1.6-8.9); Platelet Count 258 K/mcL (140-400); Red Blood Count 4.42 M/mcL (3.82-4.97); Red Cell Distribution Width 16.8 % (11.5-14.5); Segmented Neutrophils % 87.4 %
[2017-06-22] MEDS ORDERED: 0.9 % Sodium Chloride 500 ML IVC ONE (15:41)
[2017-06-22 15:42] LABS: Mean Corpuscular Volume 85.7 fL (83.0-100.0)
[2017-06-22 16:00] LABS: Prothrombin Time 11.1 Seconds (9.4-12.1)
[2017-06-22 16:03] LABS: Activated Partial Thrombo Time 35.1 Seconds (26.0-36.0)
[2017-06-22 16:04] LABS: Calcium 9.2 mg/dL (8.6-10.3); Potassium 4.1 mEq/L (3.5-5.1)
[2017-06-22] MEDS ORDERED: *HR* Labetalol 20 MG/4 ML SYRINGE IVP ONE (16:55)
[2017-06-22 17:22] LABS: VBG HCO3 24 mEq/L (21-27); VBG PCO2 43 mmHg (41-51); VBG PH 7.35 pH Units (7.32-7.42); VBG PO2 55 mmHg (25-50)
[2017-06-22] MEDS ORDERED: Chloraseptic Spray 177 ML BOTTLE MM PRN (19:57)
[2017-06-22 20:51] LABS: Hepatitis B Surface Antigen Nonreactive (Nonreactive)
[2017-06-22] MEDS ORDERED: Naloxone 0.4 MG/ML INJ IVP PRN (21:10)
[2017-06-22] MEDS ORDERED: Acetaminophen 325 MG TABLET PO PRN (21:10)
[2017-06-22] MEDS ORDERED: D5% in Water 1,000 ML IVC PRN (21:13)
[2017-06-22] MEDS ORDERED: Dextrose Gel 15 GM/37.5 ML TUBE PO PRN ×2 (21:13)
[2017-06-22] MEDS ORDERED: *HR* Dextrose 50 % in Water (Syg) 50 ML SYRINGE IVP PRN (21:13)
[2017-06-22] MEDS ORDERED: *HR* HYDROcodone/Acet 10/325 mg TABLET PO PRN (21:14)
--- NOTE | 2017-06-22 21:36 | Internal Med History&Physical ---
Date of Encounter: 06/22/17 Time of Encounter: 21:00 Assessment and Plan (1) Gastroenteritis Current visit: Yes Status: Acute Probably viral. No fever or leukocytosis. CT abdomen/pelvis ordered and reviewed-shows dilated small and large intestine suggestive of enteritis, possible small bowel ileus. Received a small IV fluid bolus in the emergency room. Continue to monitor along with supportive care with when necessary antiemetics, loperamide. Stool for Clostridium difficile toxin is negative. Check stool WBC, GI panel and culture. Clear liquid Diet as tolerated. (2) Hypertensive urgency Current visit: Yes Status: Acute Likely related to medical noncompliance and end-stage renal disease. Patient was recently discharged from the hospital with new antihypertensive medications. Will restart home medications with first dose now. Will use when necessary IV hydralazine for appropriate blood pressure control. Continue to monitor vitals closely. High risk for complications. (3) Intractable nausea and vomiting Current visit: Yes Status: Acute Plan as above. Continue supportive care with when necessary antiemetics. Qualifiers: Vomiting type: unspecified Qualified Code(s): R11.2 - Nausea with vomiting , unspecified (4) Low back pain Current visit: Yes Status: Chronic Qualifiers: Chronicity: chronic Back pain laterality: midline Sciatica presence: without sciatica Qualified Code(s): M54.5 - Low back pain; G89.29 - Other chronic pain; G89.29 - Other chronic pain (5) HTN (hypertension) Current visit: Yes Status: Chronic Continue home medications. Remaining plan as above. Qualifiers: Hypertension type: essential hypertension Qualified Code(s): I10 - Essential (primary) hypertension (6) ESRD (end stage renal disease) on dialysis Current visit: Yes Status: Chronic Will consult nephrology for hemodialysis needs. Anticipate dialysis in a.m. (7) CAD (coronary artery disease) Current visit: Yes Status: Chronic Patient reports not taking aspirin or Plavix at home, however recent discharge notes show that patient has been discharged on aspirin, Plavix, statin and beta keesha. Continue home medications. Qualifiers: Coronary Disease-Associated Artery/Lesion type: [place] artery [place] vs. transplanted heart: [place] heart Associated angina: without angina Qualified Code(s): I25.10 - Atherosclerotic heart disease of [place] coronary artery without angina pectoris (8) Diabetes mellitus Current visit: Yes Status: Chronic Accu-Chek blood glucose monitoring with basal bolus insulin regimen. Monitor blood sugars closely. Clear liquid diet as tolerated. Qualifiers: Diabetes mellitus type: type 1 Diabetes mellitus complication status: with kidney complications Diabetes mellitus complication detail: with chronic kidney disease Chronic kidney disease stage: on chronic dialysis Qualified Code(s): E10.22 - Type 1 diabetes mellitus with diabetic chronic kidney disease ; N18.6 - End stage renal disease; N18.6 - End stage renal disease; N18.6 - End stage renal disease; N18.6 - End stage renal disease; Z99.2 - Dependence on renal dialysis; Z99.2 - Dependence on renal dialysis; Z99.2 - Dependence on renal dialysis; Z99.2 - Dependence on renal dialysis Internal Medicine - H&P: HPI Chief complaint: Abdominal pain, emesis, diarrhea Admitted From: Emergency Dept Plans for Post Hospital Care: Home History of present illness: Ms. Benavidez is a 36 year old female with history of end-stage renal disease on hemodialysis, who presents with complaints of sudden onset of nausea, vomiting and diarrhea since yesterday. Patient reports feeling well until yesterday when she started developing multiple episodes of nonbloody, bilious emesis associated with loose, watery, nonbloody diarrhea and diffuse abdominal pains/ cramps. She reports presenting only for 2 hours of hemodialysis today due to these ongoing symptoms. No fever, chills, chest pain or shortness of breath. No sick contacts at home. No recent antibiotic use. Patient was also noted to have uncontrolled hypertension since arrival in the emergency room. Of note, she is noted to be noncompliant with most of her medications as an outpatient and is unable to remember her home medications. Past Med Surg Social Fam HX - Past Medical History Medical history: coronary artery disease, diabetes, dialysis, hypertension, renal disease Psychiatric history: anxiety, depression - Past Surgical History Surgical History: angioplasty/stent, hysterectomy, other (Right below knee amputation, left transmetatarsal amputation) - Social History Smoking Status: Former smoker Smokeless Tobacco Status: No Alcohol use: none Drug use: none Occupational status: disabled Current living situation: Home, With Family Activity Level: Wheelchair bound Recent Out of Country Travel Within the Last 8 Weeks: No Exposure or Possible Exposure to Illness During Travel: No - Family History Mother Adopted: No Family Member Ethnicity: Non- Living Status: Still Living Hx Family Cardiac Disorders: Yes (Father with coronary artery disease) Hx Family Respiratory Disorders: No Hx Family Cancer: Yes (Breast) Hx Family GI Disorders: No Hx Family Endocrine Disorder: Yes (Mother with dm) Hx Family Neuromuscular Disorders: No Hx Family Neurologic Disorders: No Hx Family HEENT Disorders: No Hx Family Autoimmune Disorders: No Internal Medicine - H&P: Meds HYDROcodone/Acet 10/325 mg [[place] 10-325 mg] 1 tab PO QID PRN 01/21/16 [History] Atorvastatin [Lipitor] 40 mg PO HS #30 tablet 05/14/17 [Rx] [place]chol Chloride [Urecholine] 5 mg PO BID 06/22/17 [History] Omeprazole [PriLOSEC] 40 mg PO DAILY 06/22/17 [History] 3 Allergy/AdvReac Type Severity Reaction Status Date / Time Amoxicillin Allergy Hives Verified 06/22/17 14:08 metoclopramide [From Reglan] AdvReac Shakiness Verified 06/22/17 14:08 ondansetron AdvReac Vomiting Verified 06/22/17 14:08 [From Zofran (as hydrochloride)] All Systems PM: A 10-system review of systems was performed and is negative for pertinent findings except as documented above in the HPI. - Constitutional Constitutional: no chills, no fever(s), no night sweats - EENT Eyes: no change in vision, no discharge, no pain, no photophobia Ears: no ear discharge, no ear pain, no tinnitus Nose, mouth and throat: no dysphagia, no nasal discharge, no neck pain, no sore throat - Cardiovascular Cardiovascular ROS IM: no chest pain, no diaphoresis, no dyspnea, no lightheadedness, no palpitations, no syncope - Respiratory Respiratory: no cough, no dyspnea, no wheezing, no excessive phlegm production - Gastrointestinal Gastrointestinal: abdominal pain, diarrhea, nausea, vomiting - Genitourinary Genitourinary: no change in urinary stream, no dysuria, no flank pain, no hematuria - Musculoskeletal Musculoskeletal ROS IM: no numbness, no tingling - Integumentary Integumentary IM: no rash, no unusual bruising - Neurological Neurological ROS: no confusion, no convulsions, no focal weakness, no numbness, no tingling, no tremor(s) - Hematologic/Lymphatic Hematologic/Lymphatic: no easy bruising - Constitutional Vitals: Temp Pulse Resp BP Pulse Ox 99.8 F H 101 16 209/103 99 06/22/17 19:58 06/22/17 19:58 06/22/17 19:58 06/22/17 19:58 06/22/17 19:58 General appearance: Present: mild distress, A&O X 3, answers questions appropriately - Respiratory Respiratory exam: Present: CTAB. Absent: accessory muscle use, rales, rhonchi, wheezes - Cardiovascular Cardiovascular exam: Present: RRR, +S1, +S2. Absent: diastolic murmur, gallop, rubs, systolic murmur - GI/Abdominal GI/Abdominal exam: Present: normal bowel sounds, soft (tenderness diffusely- central, LLQ, RLQ; no guarding or rigidity), no peritoneal signs. Absent: distended, tenderness - Extremities Exam Extremities exam: Present: pedal edema (trace left leg), warm, radial pulses palpable and symmetrical. Absent: calf tenderness, cyanotic Additional comments: right BKA, left TMSA+ - Neurological Exam Neurological exam: Present: CN II-XII intact, oriented X3, no focal deficits. Absent: pronater drift, facial droop, speech deficit Internal Med - H&P Results - Labs CBC & Chem 7: 06/22/17 15:32 06/22/17 15:32
[2017-06-22] MEDS: Lisinopril 20 MG TABLET PO SCH (21:42)
[2017-06-22] MEDS: *HR* Promethazine 25 MG/ML VIAL IVP PRN (21:42)
[2017-06-22] MEDS: *HR* Morphine 2 MG/ML SYRINGE IVP PRN (21:43)
[2017-06-22 22:33] LABS: Hemoglobin A1C 10.1 %
[2017-06-22] MEDS: *HR* Heparin 5,000 UNIT/ML VIAL SQ SCH (23:01)
[2017-06-23] MEDS: *HR* Promethazine 25 MG/ML VIAL IVP PRN ×3 (04:22→18:25)
[2017-06-23] MEDS: *HR* Morphine 2 MG/ML SYRINGE IVP PRN ×5 (04:22→22:42)
[2017-06-23 04:56] LABS: Basophils % 0.6 %; Eosinophils # 0.2 K/mcL (0.0-0.6); Eosinophils % 4.5 %; Hematocrit 32.7 % (35.3-44.9); Immature Granulocytes % 0.4 % (0-4); Lymphocytes # 0.4 K/mcL (0.6-4.6); Lymphocytes % 6.8 %; Mean Corpuscular HGB Conc 31.8 g/dL (31.6-35.5); Mean Corpuscular Volume 87.9 fL (83.0-100.0); Mean Platelet Volume 10.7 fL (9.4-12.4); Monocytes # 0.4 K/mcL (0.0-1.3); Monocytes % 7.1 %; Neutrophils # 4.3 K/mcL (1.6-8.9); Platelet Count 175 K/mcL (140-400); Red Blood Count 3.72 M/mcL (3.82-4.97); Red Cell Distribution Width 17.1 % (11.5-14.5); Segmented Neutrophils % 80.6 %
[2017-06-23 04:58] LABS: Hemoglobin 10.4 g/dL (11.5-15.4)
[2017-06-23 05:06] LABS: Calcium 8.3 mg/dL (8.6-10.3); Magnesium 1.8 mg/dL (1.6-2.6); Phosphorous 7.6 mg/dL (2.7-4.5); Potassium 4.3 mEq/L (3.5-5.1)
[2017-06-23] MEDS: Insulin LISPRO 300 UNITS/3 ML VIAL SQ SCH ×4 (08:05→21:26)
[2017-06-23] MEDS: *HR* Heparin 5,000 UNIT/ML VIAL SQ SCH ×2 (08:05→16:15)
[2017-06-23] MEDS: Aspirin Enteric Coated 81 MG Tablet PO SCH (08:06)
[2017-06-23] MEDS: Lisinopril 20 MG TABLET PO SCH ×2 (08:06→21:25)
[2017-06-23] MEDS ORDERED: amLODIPine 5 MG TABLET PO SCH (09:00)
[2017-06-23] MEDS ORDERED: *HR* Heparin 10,000 UNIT/10 ML VIAL IV PRN (09:40)
[2017-06-23] MEDS ORDERED: 0.9 % Sodium Chloride 250 ML IVC PRN (09:40)
[2017-06-23] MEDS ORDERED: 0.9 % Sodium Chloride 1,000 ML PRIME SCH (09:45)
[2017-06-23 09:55] LABS: Hepatitis B Surface Antibody 8.11 mIU/mL
--- NOTE | 2017-06-23 10:08 | Internal Med Progress Note ---
<Jesús Saavedra - Last Filed: 06/23/17 13:34> Date of Encounter: 06/23/17 Time of Encounter: 08:45 - Assessment and plan (1) Gastroenteritis Current Visit: Yes Status: Acute Assessment and plan: Most likely viral. No fever or WBC elevation. Awaiting stool culture, GI panel. Supportive care with IVF if patient does not tolerate clear liquids. (2) Hypertensive urgency Current Visit: Yes Status: Acute Assessment and plan: Resolved. Continue home medications with hydralazine as necessary. (3) Intractable nausea and vomiting Current Visit: Yes Status: Acute Assessment and plan: Improved somewhat with antiemetics Qualifiers: Vomiting type: unspecified Qualified Code(s): R11.2 - Nausea with vomiting , unspecified (4) HTN (hypertension) Current Visit: Yes Status: Chronic Assessment and plan: Controlled at 129/70 Continue current management Qualifiers: Hypertension type: essential hypertension Qualified Code(s): I10 - Essential (primary) hypertension (5) ESRD (end stage renal disease) on dialysis Current Visit: Yes Status: Chronic Assessment and plan: Cr 7.04, BUN 58 Nephrology consulted Anticipate hemodialysis today (6) CAD (coronary artery disease) Current Visit: Yes Status: Chronic Assessment and plan: Continue aspirin, Plavix, statin and beta keesha Qualifiers: Coronary Disease-Associated Artery/Lesion type: [place] artery [place] vs. transplanted heart: [place] heart Associated angina: without angina Qualified Code(s): I25.10 - Atherosclerotic heart disease of [place] coronary artery without angina pectoris (7) Diabetes mellitus Current Visit: Yes Status: Chronic Assessment and plan: Glucose 243 this morning Detemir 14 units HS and low dose SSI Patient intaking small amounts of clear liquids Qualifiers: Diabetes mellitus type: type 1 Diabetes mellitus complication status: with kidney complications Diabetes mellitus complication detail: with chronic kidney disease Chronic kidney disease stage: on chronic dialysis Qualified Code(s): E10.22 - Type 1 diabetes mellitus with diabetic chronic kidney disease ; N18.6 - End stage renal disease; N18.6 - End stage renal disease; N18.6 - End stage renal disease; N18.6 - End stage renal disease; Z99.2 - Dependence on renal dialysis; Z99.2 - Dependence on renal dialysis; Z99.2 - Dependence on renal dialysis; Z99.2 - Dependence on renal dialysis - Subjective Interval history: Patient admits some improvement in nausea and vomiting since last night, though she still endorses diarrhea. She is not tolerating clear liquids very well. - Constitutional Vitals: Temp Pulse Resp BP Pulse Ox 98.2 F 96 15 129/70 97 06/23/17 06:58 06/23/17 06:58 06/23/17 06:58 06/23/17 06:58 06/23/17 08:12 General appearance: Present: A&O X 3, answers questions appropriately - Head Head exam: Present: atraumatic, normal inspection, normocephalic - ENT ENT exam: Present: mucous membranes moist - Neck Neck exam general surgery: Present: trachea midline - Respiratory Respiratory exam: Present: CTAB. Absent: accessory muscle use, respiratory distress - Cardiovascular Cardiovascular exam: Present: RRR, +S1, +S2 - GI/Abdominal GI/Abdominal exam: Present: soft, tenderness (Upper abdomen, mostly RUQ), no peritoneal signs - Neurological Exam Neurological exam: Present: alert, oriented X3, no focal deficits - Psychiatric Psychiatric exam: Present: normal affect, normal mood - Skin Skin exam: Present: dry, warm Internal Medicine: Result - Labs CBC & Chem 7: 06/23/17 04:40 06/23/17 04:40 Labs: Short CBC 06/23/17 Range/Units 04:40 WBC 5.3 (4.3-11.1) K/mcL Hgb 10.4 L D (11.5-15.4) g/dL Hct 32.7 L (35.3-44.9) % Plt Count 175 (140-400) K/mcL Neutrophils # 4.3 (1.6-8.9) K/mcL BMP 06/23/17 04:40 Sodium 135 L Potassium 4.3 Chloride 101 Carbon Dioxide 21 L BUN 58 H Creatinine 7.04 H Glucose 243 H Calcium 8.3 L - ABG Interpretation ABG results: PT/INR, D-dimer PT 11.1 Seconds (9.4-12.1) 06/22/17 15:32 Consult Discharge Plan - Plan Referrals: Colt Espinoza MD [Primary Care Provider] - 07/06/17 4:00 pm <Jim Barbosa - Last Filed: 06/23/17 15:57> Date of Encounter: 06/23/17 - Constitutional Vitals: Temp Pulse Resp BP Pulse Ox 97.8 F 96 17 134/74 97 06/23/17 10:05 06/23/17 06:58 06/23/17 10:05 06/23/17 12:35 06/23/17 08:12 Internal Medicine: Result - Labs CBC & Chem 7: 06/23/17 04:40 06/23/17 04:40 Labs: Short CBC 06/23/17 Range/Units 04:40 WBC 5.3 (4.3-11.1) K/mcL Hgb 10.4 L D (11.5-15.4) g/dL Hct 32.7 L (35.3-44.9) % Plt Count 175 (140-400) K/mcL Neutrophils # 4.3 (1.6-8.9) K/mcL BMP 06/23/17 04:40 Sodium 135 L Potassium 4.3 Chloride 101 Carbon Dioxide 21 L BUN 58 H Creatinine 7.04 H Glucose 243 H Calcium 8.3 L Cardiac Enzymes 06/23/17 Range/Units 11:59 Troponin I 0.26 H* (< 0.04) ng/mL - ABG Interpretation ABG results: PT/INR, D-dimer PT 11.1 Seconds (9.4-12.1) 06/22/17 15:32 - Attending Attestation I have seen and examined this patient n 06/23/17 and discussed plan of care with patient and the resident physician 36 F with DM, uncontrolled, complicated by ESRD, multiple amputations, gastroparesis, Uncontrolled HTN, Chronic pain syndrome, known hx of non- complaince with medications (including DaPT) and hemodialysis, as well as follow ups Admitted and being managed for gastroenteritis, HTN Urgency, Fluid overload from missed HD and elevated troponins She has no new complains Receiving HD at time of eval, tolerating clear liquids Imaging evidence of enteritis, no C.diff on testing, GI panel is pending Exam; VSS, NAD, speaks full sentences, mild epigastric tenderness, not aute, bowel sounds present, no pedal edema, chest is CTAB. s/p L TMA, Rt above ankle amputation. Labs and Imaging reviewed A/P: Enteritis-possibly viral, continue supportive care, follow GI panel, no current indication for antibiotics, HTN Urgency improved with reinitiation of patient's medications. Chronic medical conditions are stable Continue current care Rest of details as in the resident physician's documentation
--- NOTE | 2017-06-23 12:38 | Nephrology Consult Note ---
Date of Encounter: 06/23/17 Time of Encounter: 12:10 Assessment and Plan (1) ESRD (end stage renal disease) on dialysis Current Visit: Yes Status: Chronic Intractable N/V may be due to gastroparesis, this is an ongoing issue. ESRD-HD today, orders given. (2) Gastroparesis Current Visit: No Status: Chronic History of Present Illness - Reason for Consult end stage renal disease - History of Present Illness Ms. Benavidez is a 36 year old female with ESRD who dialyzes at [facility] on MWF. Currently off of regular schedule due to Holiday. Did dialyze for two hours yesterday, coming off early due to diarrhea, nausea and vomiting and presented to ER. Other PMH-coronary artery disease, diabetes, gastroparesis, esophageal dilitation, hypertension, angioplasty/stent, hip replacement, hysterectomy, right BKA, anxiety, depression. Seen on HD today. She states she feels better today with only one emesis earlier this morning. States continues to have diarrhea but is much less. C-Diff negative. CT abd/pelvis- no acute process. BP elevated in ER SBP 250, given Labatalol. SBP today 124-148. Past Med Surg Social Fam HX - Past Medical History Medical history: coronary artery disease, diabetes, dialysis, hypertension, renal disease Psychiatric history: anxiety, depression - Past Surgical History Surgical History: angioplasty/stent, hysterectomy, other (Right below knee amputation, left transmetatarsal amputation) - Social History Smoking Status: Former smoker Smokeless Tobacco Status: No Alcohol use: none Drug use: none - Family History Mother Adopted: No Family Member Ethnicity: Non- Living Status: Still Living Hx Family Cardiac Disorders: Yes (Father with coronary artery disease) Hx Family Respiratory Disorders: No Hx Family Cancer: Yes (Breast) Hx Family GI Disorders: No Hx Family Endocrine Disorder: Yes (Mother with dm) Hx Family Neuromuscular Disorders: No Hx Family Neurologic Disorders: No Hx Family HEENT Disorders: No Hx Family Autoimmune Disorders: No Medications and Allergies HYDROcodone/Acet 10/325 mg [Dana 10-325 mg] 1 tab PO QID PRN 01/21/16 [History] Atorvastatin [Lipitor] 40 mg PO HS #30 tablet 05/14/17 [Rx] Bethanechol Chloride [Urecholine] 5 mg PO BID 06/22/17 [History] Omeprazole [PriLOSEC] 40 mg PO DAILY 06/22/17 [History] 3 Allergy/AdvReac Type Severity Reaction Status Date / Time Amoxicillin Allergy Hives Verified 06/22/17 14:08 metoclopramide [From Reglan] AdvReac Shakiness Verified 06/22/17 14:08 ondansetron AdvReac Vomiting Verified 06/22/17 14:08 [From Zofran (as hydrochloride)] Review of Systems All Systems: reviewed and no additional remarkable complaints except as stated Exam - Vital Signs Vital signs: Initial Vital Signs Temp Pulse Resp BP Pulse Ox 98.7 F 95 20 255/137 100 06/22/17 14:06 06/22/17 14:06 06/22/17 14:06 06/22/17 14:06 06/22/17 14:06 Vital Signs - Last 8 Hours Temp Pulse Resp BP Pulse Ox 06/23/17 12:20 124/73 06/23/17 12:05 118/69 06/23/17 11:50 144/88 06/23/17 11:35 147/84 06/23/17 11:20 125/79 06/23/17 11:05 129/75 06/23/17 10:50 144/78 06/23/17 10:35 145/88 06/23/17 10:20 149/89 06/23/17 10:05 97.8 F 17 157/94 06/23/17 08:12 97 06/23/17 06:58 98.2 F 96 15 129/70 97 06/23/17 04:43 98.9 F 103 14 196/123 98 Intake and Output 06/22/17 06/23/17 06/23/17 23:59 07:59 15:59 Intake Total 720 / 720 Balance 720 / 720 Intake: Oral 120 / 120 Intake, Rinseback and Flushes 600 / 600 Other: Meal Breakfast Percent of Meal Consumed 100% Weight 91.9 kg Blood Glucose* 205 128 Hemodialysis Net Fluid Removed 2707 (mL) Patient Weight 06/23/17 23:59 Weight 91.9 kg - General Appearance General appearance: well-developed, well-nourished, appears started age EENT: mucous membranes moist Neck: no JVD Respiratory: clear Cardiology: no edema, regular rate, regular rhythm Additional Comments: right BKA Gastrointestinal: normoactive bowel sounds, tenderness Integumentary: warm and dry Neurologic: alert and oriented x3 Results - Lab Results 06/23/17 04:40 06/23/17 04:40 Most recent lab results Calcium 8.3 mg/dL (8.6-10.3) L 06/23/17 04:40 Phosphorus 7.6 mg/dL (2.7-4.5) H 06/23/17 04:40 Magnesium 1.8 mg/dL (1.6-2.6) 06/23/17 04:40 Consult Discharge Plan - Plan Referrals: Colt Espinoza MD [Primary Care Provider] - 07/06/17 4:00 pm
[2017-06-23] MEDS ORDERED: 0.9 % Sodium Chloride 2,000 ML ONE (13:02)
[2017-06-23] MEDS: Insulin DETEMIR 100 UNIT/ML X5UNITS SQ SCH (21:25)
[2017-06-24] MEDS: *HR* Heparin 5,000 UNIT/ML VIAL SQ SCH ×3 (00:12→14:50)
[2017-06-24] MEDS: *HR* Promethazine 25 MG/ML VIAL IVP PRN ×4 (00:13→21:31)
[2017-06-24 05:43] LABS: Basophils % 0.8 %; Eosinophils # 0.2 K/mcL (0.0-0.6); Eosinophils % 6.6 %; Hematocrit 33.1 % (35.3-44.9); Hemoglobin 10.4 g/dL (11.5-15.4); Immature Granulocytes % 0.6 % (0-4); Lymphocytes # 0.7 K/mcL (0.6-4.6); Lymphocytes % 18.8 %; Mean Corpuscular HGB Conc 31.4 g/dL (31.6-35.5); Mean Corpuscular Hemoglobin 28.1 pg (28.0-33.3); Mean Corpuscular Volume 89.5 fL (83.0-100.0); Monocytes # 0.6 K/mcL (0.0-1.3); Monocytes % 16.9 %; Platelet Count 170 K/mcL (140-400); Red Cell Distribution Width 16.8 % (11.5-14.5); Segmented Neutrophils % 56.3 %
[2017-06-24 05:57] LABS: Calcium 8.1 mg/dL (8.6-10.3); Potassium 4.4 mEq/L (3.5-5.1)
[2017-06-24] MEDS: amLODIPine 5 MG TABLET PO SCH (07:54)
[2017-06-24] MEDS: Lisinopril 20 MG TABLET PO SCH ×2 (07:54→21:30)
[2017-06-24] MEDS: Aspirin Enteric Coated 81 MG Tablet PO SCH (07:54)
[2017-06-24] MEDS: *HR* Morphine 2 MG/ML SYRINGE IVP PRN (07:55)
[2017-06-24] MEDS: Insulin LISPRO 300 UNITS/3 ML VIAL SQ SCH ×6 (07:56→21:32)
[2017-06-24] MEDS ORDERED: amLODIPine 5 MG TABLET PO SCH (09:00)
--- NOTE | 2017-06-24 09:30 | Nephrology Progress Note ---
Date of Encounter: 06/24/17 Time of Encounter: 08:40 - Assessment and Plan (1) ESRD (end stage renal disease) on dialysis Current Visit: Yes Status: Chronic GI issues improved, hx gastroparesis. No HD today, keeping MWF schedule. (2) Gastroparesis Current Visit: No Status: Chronic Subjective Interval history: Ate breakfast. States no further emesis since yesterday and diarrhea greatly decreased. No new complaints. Objective - Vital Signs Vital signs: Vital Signs Temp Pulse Resp BP Pulse Ox 06/24/17 07:12 97.6 F 81 16 166/99 100 06/24/17 04:15 99.1 F 84 16 145/91 99 06/23/17 19:31 100.2 F H 92 16 143/80 99 06/23/17 15:50 98.5 F 92 16 151/91 96 06/23/17 13:15 17 159/93 06/23/17 13:05 138/83 06/23/17 12:50 142/90 06/23/17 12:35 134/74 06/23/17 12:20 124/73 06/23/17 12:05 118/69 06/23/17 11:50 144/88 06/23/17 11:35 147/84 06/23/17 11:20 125/79 06/23/17 11:05 129/75 06/23/17 10:50 144/78 06/23/17 10:35 145/88 06/23/17 10:20 149/89 06/23/17 10:05 97.8 F 17 157/94 Intake and Output 06/23/17 06/24/17 06/24/17 23:59 07:59 15:59 Intake Total 240 / 240 Balance 240 / 240 Intake: Oral 240 / 240 Other: Meal Dinner Percent of Meal Consumed 100% Weight 89.8 kg Blood Glucose* 223 225 Patient Weight 06/24/17 23:59 Weight 89.8 kg - General Appearance General appearance: Present: well-developed, well-nourished, appears started age EENT: Present: mucous membranes moist Neck: Present: no JVD Respiratory: Present: clear Cardiology: Present: no edema, regular rate, regular rhythm Additional Comments: right BKA Gastrointestinal: Present: tenderness Additional Comments: hyperactive BS Integumentary: Present: warm and dry Neurologic: Present: alert and oriented x3 Psychiatric: Present: mood/affect appropriate, cooperative - Lab 06/24/17 05:23 06/24/17 05:23 Most recent lab results Calcium 8.1 mg/dL (8.6-10.3) L 06/24/17 05:23 Phosphorus 7.6 mg/dL (2.7-4.5) H 06/23/17 04:40 Magnesium 1.8 mg/dL (1.6-2.6) 06/23/17 04:40 - VTE Documentation of Mechanical Device: Intermittent pneumatic compression device Consult Discharge Plan - Plan Referrals: Colt Espinoza MD [Primary Care Provider] - 07/06/17 4:00 pm
[2017-06-24 09:33] LABS: Adenovirus F 40/41 PCR Not detected (Not detect); Astrovirus PCR Not detected (Not detect); C.difficile Toxin A/B by PCR Not detected (Not detect); Campylobacter by PCR Not detected (Not detect); Cryptosporidium by PCR Not detected (Not detect); Cyclospora cayetanensis PCR Not detected (Not detect); E. coli O157 by PCR Not detected (Not detect); Entamoeba histolytica PCR Not detected (Not detect); Enteroaggregative E.coli(EAEC) Not detected (Not detect); Enteropathogenic E.coli(EPEC) Not detected (Not detect); Enterotoxigenic E.coli (ETEC) Not detected (Not detect); Giardia lamblia PCR Not detected (Not detect); Norovirus GI/GII PCR ***DETECTED*** (Not detect); Plesiomonas shigelloides PCR Not detected (Not detect); Rotavirus A PCR Not detected (Not detect); Salmonella PCR Not detected (Not detect); Sapovirus PCR Not detected (Not detect); Shig/EnteroinvasiveE coli EIEC Not detected (Not detect); Shigalike tox-prod E coli STEC Not detected (Not detect); Vibrio PCR Not detected (Not detect); Vibrio cholerae PCR Not detected (Not detect); Yersinia enterocolitica PCR Not detected (Not detect)
--- NOTE | 2017-06-24 12:13 | Internal Med Progress Note ---
<Jesús Saavedra - Last Filed: 06/24/17 12:10> Date of Encounter: 06/24/17 Time of Encounter: 09:00 - Assessment and plan (1) Gastroenteritis due to norovirus Current Visit: Yes Status: Acute Assessment and plan: Tested positive for norovirus. Continue supportive care. (2) Hypertensive urgency Current Visit: Yes Status: Acute Assessment and plan: Resolved. Continue home medications with hydralazine as necessary. (3) Intractable nausea and vomiting Current Visit: Yes Status: Acute Assessment and plan: Improved Continue antiemetics Qualifiers: Vomiting type: unspecified Qualified Code(s): R11.2 - Nausea with vomiting , unspecified (4) HTN (hypertension) Current Visit: Yes Status: Chronic Assessment and plan: 153/96 Continue current management Qualifiers: Hypertension type: essential hypertension Qualified Code(s): I10 - Essential (primary) hypertension (5) ESRD (end stage renal disease) on dialysis Current Visit: Yes Status: Chronic Assessment and plan: Cr 6.11 Nephrology following Hemodialysis MWF (6) CAD (coronary artery disease) Current Visit: Yes Status: Chronic Assessment and plan: Continue aspirin, Plavix, statin and beta keesha Qualifiers: Coronary Disease-Associated Artery/Lesion type: [place] artery [place] vs. transplanted heart: [place] heart Associated angina: without angina Qualified Code(s): I25.10 - Atherosclerotic heart disease of [place] coronary artery without angina pectoris (7) Diabetes mellitus Current Visit: Yes Status: Chronic Assessment and plan: Glucose 224 this morning Detemir 14 units HS and low dose SSI Patient now eating regular diet Consider increasing levemir (home dose is 60-80 units) Qualifiers: Diabetes mellitus type: type 1 Diabetes mellitus complication status: with kidney complications Diabetes mellitus complication detail: with chronic kidney disease Chronic kidney disease stage: on chronic dialysis Qualified Code(s): E10.22 - Type 1 diabetes mellitus with diabetic chronic kidney disease ; N18.6 - End stage renal disease; N18.6 - End stage renal disease; N18.6 - End stage renal disease; N18.6 - End stage renal disease; Z99.2 - Dependence on renal dialysis; Z99.2 - Dependence on renal dialysis; Z99.2 - Dependence on renal dialysis; Z99.2 - Dependence on renal dialysis - Subjective Interval history: Patient admits improvement of the nausea, vomiting, and diarrhea. Tolerated advancing of diet. - Constitutional Vitals: Temp Pulse Resp BP Pulse Ox 98.0 F 80 16 153/96 99 06/24/17 11:08 06/24/17 11:08 06/24/17 11:08 06/24/17 11:08 06/24/17 11:08 General appearance: Present: A&O X 3, answers questions appropriately - Head Head exam: Present: atraumatic, normal inspection, normocephalic - ENT ENT exam: Present: mucous membranes moist - Neck Neck exam general surgery: Present: trachea midline - Respiratory Respiratory exam: Present: CTAB. Absent: accessory muscle use, prolonged expiratory phase - Cardiovascular Cardiovascular exam: Present: RRR, +S1, +S2 - GI/Abdominal GI/Abdominal exam: Present: hyperactive bowel sounds, soft, tenderness (RLQ) - Neurological Exam Neurological exam: Present: alert, oriented X3 - Psychiatric Psychiatric exam: Present: normal affect, normal mood - Skin Skin exam: Present: dry, warm Internal Medicine: Result - Labs CBC & Chem 7: 06/24/17 05:23 06/24/17 05:23 Labs: Short CBC 06/24/17 Range/Units 05:23 WBC 3.6 L (4.3-11.1) K/mcL Hgb 10.4 L (11.5-15.4) g/dL Hct 33.1 L (35.3-44.9) % Plt Count 170 (140-400) K/mcL Neutrophils # 2.0 (1.6-8.9) K/mcL BMP 06/24/17 05:23 Sodium 134 L Potassium 4.4 Chloride 98 Carbon Dioxide 23 BUN 42 H Creatinine 6.11 H Glucose 224 H Calcium 8.1 L Cardiac Enzymes 06/23/17 06/23/17 Range/Units 11:59 22:30 Troponin I 0.26 H* 0.17 H* (< 0.04) ng/mL - ABG Interpretation ABG results: PT/INR, D-dimer PT 11.1 Seconds (9.4-12.1) 06/22/17 15:32 - VTE Documentation of Mechanical Device: Intermittent pneumatic compression device Consult Discharge Plan - Plan Referrals: Colt Espinoza MD [Primary Care Provider] - 07/06/17 4:00 pm <Jim Barbosa T - Last Filed: 06/24/17 16:14> Date of Encounter: 06/24/17 - Constitutional Vitals: Temp Pulse Resp BP Pulse Ox 98.0 F 80 16 153/96 99 06/24/17 11:08 06/24/17 11:08 06/24/17 11:08 06/24/17 11:08 06/24/17 11:08 Internal Medicine: Result - Labs CBC & Chem 7: 06/24/17 05:23 06/24/17 05:23 Labs: Short CBC 06/24/17 Range/Units 05:23 WBC 3.6 L (4.3-11.1) K/mcL Hgb 10.4 L (11.5-15.4) g/dL Hct 33.1 L (35.3-44.9) % Plt Count 170 (140-400) K/mcL Neutrophils # 2.0 (1.6-8.9) K/mcL BMP 06/24/17 05:23 Sodium 134 L Potassium 4.4 Chloride 98 Carbon Dioxide 23 BUN 42 H Creatinine 6.11 H Glucose 224 H Calcium 8.1 L Cardiac Enzymes 06/23/17 Range/Units 22:30 Troponin I 0.17 H* (< 0.04) ng/mL - ABG Interpretation ABG results: PT/INR, D-dimer PT 11.1 Seconds (9.4-12.1) 06/22/17 15:32 - Attending Attestation I have seen and examined this patient n 05/29/17 and discussed plan of care with patient and the resident physician 36 F with DM, uncontrolled, complicated by ESRD, multiple amputations, gastroparesis, Uncontrolled HTN, Chronic pain syndrome, known hx of non- complaince with medications (including DaPT) and hemodialysis, as well as follow ups Admitted and being managed for vial gastroenteritis, HTN Urgency, Fluid overload from missed HD and elevated troponins She has no new complains, tolerating po, requesting IV pain meds, no indication for same at this time GI panel noted-positive for norovirus Exam; VSS, NAD, speaks full sentences, abdomen is not tender, bowel sounds present, no pedal edema, chest is CTAB. s/p L TMA, Rt above ankle amputation. Labs and Imaging reviewed A/P: Enteritis-viral, continue supportive care, follow GI panel, no current indication for antibiotics, HTN Urgency improved with reinitiation of patient's medications. Chronic medical conditions are stable Continue current care Rest of details as in the resident physician's documentation
[2017-06-24] MEDS ORDERED: Acetaminophen IV 1,000 MG/100 ML INFUS..BTL IVPB ONE (13:08)
--- NOTE | 2017-06-24 16:08 | Electrocardiograph Report ---
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
[2017-06-24] MEDS: *HR* HYDROcodone/Acet 10/325 mg TABLET PO PRN ×2 (16:13→22:21)
[2017-06-24] MEDS: Insulin DETEMIR 100 UNIT/ML X5UNITS SQ SCH (21:31)
[2017-06-24] MEDS ORDERED: *HR* Morphine 2 MG/ML SYRINGE IVP ONE (23:36)
[2017-06-25] MEDS: *HR* Heparin 5,000 UNIT/ML VIAL SQ SCH ×3 (00:23→15:53)
[2017-06-25] MEDS: *HR* Promethazine 25 MG/ML VIAL IVP PRN ×2 (04:07→10:08)
[2017-06-25 04:15] LABS: Hematocrit 30.7 % (35.3-44.9); Hemoglobin 9.5 g/dL (11.5-15.4); Mean Corpuscular HGB Conc 30.9 g/dL (31.6-35.5); Mean Corpuscular Volume 90.6 fL (83.0-100.0); Mean Platelet Volume 11.1 fL (9.4-12.4); Platelet Count 164 K/mcL (140-400); Red Blood Count 3.39 M/mcL (3.82-4.97); Red Cell Distribution Width 16.5 % (11.5-14.5)
[2017-06-25 04:34] LABS: Potassium 4.8 mEq/L (3.5-5.1)
[2017-06-25] MEDS ORDERED: *HR* Heparin 10,000 UNIT/10 ML VIAL IV PRN (07:32)
[2017-06-25] MEDS ORDERED: 0.9 % Sodium Chloride 250 ML IVC PRN (07:32)
[2017-06-25] MEDS: Insulin LISPRO 300 UNITS/3 ML VIAL SQ SCH ×5 (08:26→16:10)
--- NOTE | 2017-06-25 09:30 | Nephrology Progress Note ---
Date of Encounter: 06/25/17 Time of Encounter: 09:05 - Assessment and Plan (1) ESRD (end stage renal disease) on dialysis Current Visit: Yes Status: Chronic GI issues improved, hx gastroparesis. HD today, keeping MWF schedule. If discharged home will dialyze at [facility] unit on Wednesday due to Holiday schedule. Patient informed. (2) Gastroparesis Current Visit: No Status: Chronic Subjective Interval history: Seen in dialysis unit. States some nausea, no emesis, no further diarrhea. Objective - Vital Signs Vital signs: Vital Signs Temp Pulse Resp BP Pulse Ox 06/25/17 06:58 98.2 F 79 18 151/95 99 06/25/17 03:14 97.8 F 80 16 138/86 97 06/24/17 23:23 98.2 F 81 18 156/92 98 06/24/17 18:35 98.2 F 79 18 154/92 99 06/24/17 16:34 97.4 F L 77 16 150/97 98 06/24/17 11:08 98.0 F 80 16 153/96 99 Intake and Output 06/24/17 06/25/17 06/25/17 23:59 07:59 15:59 Intake Total 0 / 0 240 / 240 Output Total 1000 / 1000 Balance 0 / 0 -1000 / -1000 240 / 240 Intake: Oral 0 / 0 240 / 240 Output: Urine 1000 / 1000 Other: Meal Dinner Breakfast Percent of Meal Consumed 100% 100% Weight 91.2 kg Blood Glucose* 202 168 Patient Weight 06/25/17 23:59 Weight 91.2 kg - General Appearance General appearance: Present: well-developed, well-nourished, appears started age EENT: Present: mucous membranes moist Neck: Present: no JVD Respiratory: Present: clear Cardiology: Present: no edema, regular rate, regular rhythm Additional Comments: right bka Gastrointestinal: Present: normoactive bowel sounds, tenderness Integumentary: Present: warm and dry Neurologic: Present: alert and oriented x3 - Lab 06/25/17 04:00 06/25/17 04:00 Most recent lab results Calcium 8.0 mg/dL (8.6-10.3) L 06/25/17 04:00 Phosphorus 7.6 mg/dL (2.7-4.5) H 06/23/17 04:40 Magnesium 1.8 mg/dL (1.6-2.6) 06/23/17 04:40 - VTE Documentation of Mechanical Device: Intermittent pneumatic compression device Consult Discharge Plan - Plan Referrals: Colt Espinoza MD [Primary Care Provider] - 07/06/17 4:00 pm
--- NOTE | 2017-06-25 11:34 | Discharge Summary ---
<Tj Good - Last Filed: 06/25/17 14:19> Date of Encounter: 06/25/17 Time of Encounter: 11:26 - Discharge Diagnosis (1) Gastroenteritis due to norovirus Priority: Primary Status: Acute (2) Intractable nausea and vomiting Priority: Secondary Status: Acute Qualifiers: Vomiting type: unspecified Qualified Code(s): R11.2 - Nausea with vomiting , unspecified (3) CAD (coronary artery disease) Priority: Secondary Status: Chronic Qualifiers: Coronary Disease-Associated Artery/Lesion type: [place] artery [place] vs. transplanted heart: [place] heart Associated angina: without angina Qualified Code(s): I25.10 - Atherosclerotic heart disease of [place] coronary artery without angina pectoris (4) Diabetes mellitus Priority: Secondary Status: Chronic Qualifiers: Diabetes mellitus type: type 2 Diabetes mellitus complication status: with kidney complications Diabetes mellitus complication detail: with chronic kidney disease Diabetes mellitus fpc insulin use: with fpc use Chronic kidney disease stage: on chronic dialysis Qualified Code(s): E11.22 - Type 2 diabetes mellitus with diabetic chronic kidney disease; N18.6 - End stage renal disease; Z99.2 - Dependence on renal dialysis; Z99.2 - Dependence on renal dialysis; Z99.2 - Dependence on renal dialysis; N18.6 - End stage renal disease; N18.6 - End stage renal disease; N18.6 - End stage renal disease ; Z79.4 - intermodal customer service (current) use of insulin; Z79.4 - care home (current) use of insulin; Z79.4 - intermodal customer service (current) use of insulin; Z79.4 - intermodal customer service ( current) use of insulin; Z99.2 - Dependence on renal dialysis (5) ESRD (end stage renal disease) Priority: Secondary Status: Chronic (6) HTN (hypertension) Priority: Secondary Status: Chronic Qualifiers: Hypertension type: essential hypertension Qualified Code(s): I10 - Essential (primary) hypertension (7) Hypertensive urgency Priority: Secondary Status: Acute - Discharge Medications Prescriptions: Promethazine [Phenergan] 12.5 mg PO Q6HR #30 tablet amLODIPine [Norvasc] 10 mg PO DAILY #30 tablet Aspirin Enteric Coated [Aspirin EC] 81 mg PO DAILY #30 tablet. Carvedilol [Coreg] 25 mg PO BIDWM #60 tablet Clopidogrel [Plavix] 75 mg PO DAILY #30 tablet Lisinopril [Zestril] 20 mg PO BID #30 tablet Home Medications: HYDROcodone/Acet 10/325 mg [[place] 10-325 mg] 1 tab PO QID PRN 01/21/16 [History] Atorvastatin [Lipitor] 40 mg PO HS #30 tablet 05/14/17 [Rx] Bethanechol Chloride [Urecholine] 5 mg PO BID 06/22/17 [History] Omeprazole [PriLOSEC] 40 mg PO DAILY 06/22/17 [History] Aspirin Enteric Coated [Aspirin EC] 81 mg PO DAILY #30 tablet. 06/25/17 [Rx] Carvedilol [Coreg] 25 mg PO BIDWM #60 tablet 06/25/17 [Rx] Clopidogrel [Plavix] 75 mg PO DAILY #30 tablet 06/25/17 [Rx] Lisinopril [Zestril] 20 mg PO BID #30 tablet 06/25/17 [Rx] Promethazine [Phenergan] 12.5 mg PO Q6HR #30 tablet 06/25/17 [Rx] amLODIPine [Norvasc] 10 mg PO DAILY #30 tablet 06/25/17 [Rx] Allergies/Adverse Reactions: 3 Allergy/AdvReac Type Severity Reaction Status Date / Time Amoxicillin Allergy Hives Verified 06/22/17 14:08 metoclopramide [From Reglan] AdvReac Shakiness Verified 06/22/17 14:08 ondansetron AdvReac Vomiting Verified 06/22/17 14:08 [From Zofran (as hydrochloride)] Date of admission: 06/23/17 01:13 Primary care physician: Colt Espinoza MD Consults: 06/23/17 09:45 Consult to Dialysis [CONS] ONCE 06/25/17 07:45 Consult to Dialysis [CONS] ONCE Discharging clinician: Tj Good Anticipated date of discharge: 06/25/17 - Patient Status Disposition: Home, Self-Care Condition: Fair Functional capacity at discharge: independent ambulation Overall status at discharge: patient is progressing back to baseline - Discharge Instructions Follow Up With: Colt Espinoza MD [Primary Care Provider] - 07/06/17 4:00 pm - Diet and Activity Activity: increase activity as tolerated Diet: diabetic diet, low fat, low cholesterol, low salt diet Interval History: 36 LC with history of end-stage renal disease, diabetes presents with chief complaint of abdominal pain more prominent on the right lower quadrant that is cramping with nausea and dry heaves. Patient also had 1 episode of watery diarrhea. CT of the abdomen and pelvis showed fluid-filled distention of small bowel, large bowel. Patient was supported with IV fluids and started on a clear liquid diet. On admission she denied a fever or white blood cell count elevation. GI panel showed the patient had gastroenteritis secondary to neuro virus. Nausea and vomiting controlled by Phenergan and Zofran. The next 72 hours patient was able to advance her diet to solids. She had resolution of her diarrhea. She underwent her regular Wednesday dialysis. Today patient is stable for discharge. Plan: Continue diabetic diet. Patient was instructed to stay hydrated. If her symptoms of nausea/vomiting/diarrhea worsen and she is unable to have any oral intake she will have to return to the ER. Follow up with primary care physician outpatient. Continue Wednesday dialysis. Patient will have her Wednesday dialysis on Wednesday due to holiday. Hospital course: Ms. Benavidez is a 36 year old female - Time Spent with Patient Total time spent providing and/or coordinating discharge services: - Constitutional Vitals: Temp Pulse Resp BP Pulse Ox 98.2 F 79 18 151/95 99 06/25/17 06:58 06/25/17 06:58 06/25/17 06:58 06/25/17 06:58 06/25/17 06:58 General appearance: Present: A&O X 3, answers questions appropriately - Other Additional findings: General: Pleasant without distress HEENT: Head atraumatic, normocephalic, EOMI, PERRL, neck nontender to palpation , absent lymphadenopathy, Moist Mucous Membranes, Heart: Regular rate and rhythm with no murmur Lungs: Clear to auscultation bilaterally Abdomen: Soft nontender, nondistended positive bowel sounds Skin: warm and dry Extremities: Absent pedal edema, 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 Neuro: alert and oriented x3 - VTE Documentation of Mechanical Device: Intermittent pneumatic compression device <[place] - Last Filed: 06/25/17 14:43> Date of Encounter: 06/25/17 Date of admission: 06/23/17 01:13 Primary care physician: Colt Espinoza MD Consults: 06/23/17 09:45 Consult to Dialysis [CONS] ONCE 06/25/17 07:45 Consult to Dialysis [CONS] ONCE Hospital course: Ms. Benavidez is a 36 year old female - Time Spent with Patient Total time spent providing and/or coordinating discharge services: - Constitutional Vitals: Temp Pulse Resp BP Pulse Ox 97.7 F 79 18 174/100 99 06/25/17 13:00 06/25/17 06:58 06/25/17 13:00 06/25/17 13:00 06/25/17 06:58 - Attending Attestation I have reviewed the discharge summary obtained and documented by the resident, and I personally participated in the santos components. I have discussed the case and management of the patient's care.
[2017-06-25] MEDS: Lisinopril 20 MG TABLET PO SCH (13:03)
[2017-06-25] MEDS: amLODIPine 5 MG TABLET PO SCH (13:03)
[2017-06-25] MEDS: Aspirin Enteric Coated 81 MG Tablet PO SCH (13:03)
[2017-06-25 13:09] VITALS: BP 174/100
== END 2017-06-25 16:36 | disposition home or self-care (01) | DRG 391 ==
LOC: EMEROO 14:05 → 2ANU 14:05 → SUATTDRO 06-23 01:13
PROVIDERS: ADMIT Nurse Practitioner; ATTEND Internal Medicine

== ENCOUNTER 2017-07-21 13:53 | Observation (INO) ==
[2017-07-21] MEDS ORDERED: Metoclopramide 10 MG/2 ML VIAL IVP ONE (14:07)
--- NOTE | 2017-07-21 15:02 | Emergency Department Note ---
Disposition Clinical Impression: ESRD (end stage renal disease), Dizziness TIA (transient ischemic attack) Qualifiers: Transient cerebral ischemia type: unspecified Qualified Code(s): G45.9 - Transient cerebral ischemic attack, unspecified Disposition: Admitted As Inpatient Condition: Fair Referrals: Colt Espinoza MD [Primary Care Provider] - Forms: ED Satisfaction Letter Time of Disposition: 16:40 General Adult HPI - General Chief complaint: ED Neuro Symptoms/Deficit Stated complaint: numbness/tingling Time Seen by Provider: 07/21/17 14:02 Source: patient Mode of arrival: EMS Limitations: no limitations Nursing Notes Reviewed: Yes Vital Signs Reviewed: Yes - History of Present Illness HPI Narrative: 37 year old female with extensive history of diabetes, end-stage renal disease, hypertension CAD presents for evaluation of dizziness as well as numbness and tingling. Patient notes symptom onset was approximately 45 minutes prior to arrival. Patient was receiving approximately half of her dialysis therapy. Nursing staff noted the patient did have slurred speech has since resolved. Patient notes that she feels dizzy that is not necessarily correlated with position. Patient had several episodes of emesis. 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 Hilton. Patient denies any chest pain or dyspnea. No abdominal pain. Pain Scale: 0 - Related Data Home Medications Medication Instructions Recorded Confirmed HYDROcodone/Acet 10/325 mg [[place] 1 tab PO QID PRN 01/21/16 07/21/17 10-325 mg] Bethanechol Chloride [Urecholine] 5 mg PO BID 06/22/17 07/21/17 Omeprazole [PriLOSEC] 40 mg PO DAILY 06/22/17 07/21/17 Previous Rx's Medication Instructions Recorded Atorvastatin [Lipitor] 40 mg PO HS #30 tablet 05/14/17 Carvedilol [Coreg] 25 mg PO BIDWM #60 tablet 06/25/17 Lisinopril [Zestril] 20 mg PO BID #30 tablet 06/25/17 amLODIPine [Norvasc] 10 mg PO DAILY #30 tablet 06/25/17 Allergies Allergy/AdvReac Type Severity Reaction Status Date / Time Amoxicillin Allergy Hives Verified 06/22/17 14:08 metoclopramide [From Reglan] AdvReac Shakiness Verified 06/22/17 14:08 ondansetron AdvReac Vomiting Verified 06/22/17 14:08 [From Zofran (as hydrochloride)] All systems ED: reviewed and negative except as stated. Constitutional: Reports: as per HPI. Denies: fever Eyes: Reports: as per HPI ENT ED: Reports: as per HPI Cardiovascular: Reports: as per HPI. Denies: chest pain Respiratory: Reports: as per HPI. Denies: cough, dyspnea Gastrointestinal: Reports: as per HPI, nausea, vomiting. Denies: abdominal pain Genitourinary: Reports: as per HPI Musculoskeletal: Reports: as per HPI Integumentary: Reports: as per HPI Neurological: Reports: as per HPI Psychiatric: Reports: as per HPI Endocrine: Reports: as per HPI Past Medical History - Past Medical History Medical history: Reports: coronary artery disease, diabetes, dialysis, hyperlipidemia, hypertension, myocardial infarction, renal disease Surgical history: Reports: angioplasty/stent, hysterectomy, other (Right below knee amputation, left transmetatarsal amputation) Psychiatric history: Reports: anxiety, depression COMPUTER TECHNICIAN history: Reports: no COMPUTER TECHNICIAN history, other - Social History Smoking Status: Former smoker Smokeless Tobacco Status: No Alcohol use: Reports: none Drug use: Reports: none Physical Exam - General Limitations: no limitations General appearance: alert, in no apparent distress - Head Head exam: atraumatic, normocephalic, normal inspection - Eye Eye exam: Present: normal appearance, PERRL, EOMI - ENT ENT exam: normal exam, mucous membranes moist - Neck Neck exam: Present: normal inspection, trachea midline - Chest Chest inspection: Present: normal inspection, symmetric chest wall rise - Respiratory Respiratory exam: Present: other (Diffusely diminished). Absent: respiratory distress, accessory muscle use - Cardiovascular Cardiovascular exam: Present: regular rate, normal rhythm. Absent: systolic murmur - Abdominal Exam Abdominal exam: Present: soft, Non-Tender - Extremities Exam Extremities exam: Present: normal inspection - Back Exam Back exam: Present: normal inspection - Neurological Exam Neurological exam: Present: alert, oriented X3 - Skin Skin exam: Present: warm, dry, intact, normal color Course Course Narrative: Patient seen and examined. Patient was on a stroke alert. Patient's neurovascular intact. Patient is having dry emesis with nausea. Multiple IV attempts however the patient's declining further attempts. Patient once PICC placement. Patient will get MRI of the brain - Reevaluation(s) Reevaluation #1: Patient seen and examined and updated on plan of care. Time: 16:39 Vital Signs Temperature 97.8 F 07/21/17 13:57 Pulse Rate 84 07/21/17 13:57 Respiratory Rate 18 07/21/17 13:57 Blood Pressure 181/105 07/21/17 13:57 O2 Sat by Pulse Oximetry 96 07/21/17 13:57 Temperature 97.8 F 07/21/17 13:57 Pulse Rate 87 07/21/17 18:11 Respiratory Rate 97 07/21/17 18:11 Blood Pressure 146/114 07/21/17 18:11 O2 Sat by Pulse Oximetry 96 07/21/17 15:44 Oxygen Delivery Oxygen Delivery Nasal Cannula Medical Decision Making - MDM Narrative Medical decision making narrative: 37-year-old female percent for evaluation of neuro symptoms. Patient was not a stroke alert given resolution of symptoms upon arrival. Patient initially was complaining of slurred speech that was noted at the nursing facility at dialysis. Patient received half of her dialysis treatment. Patient also had numbness of her upper extremities primarily her left. Patient had a nonfocal neurologic exam however was continually having nausea and vomiting requesting pain medicine for her chronic back pain. Patient did have a MRI of the head performed which showed no acute findings. Patient supposedly was complaining of a headache. Patient was given appropriate dose of pain medication prior to however given the patient's headache she will be given ketamine. Patient is aware that she is to be admitted for TIA evaluation workup. Patient would likely need stroke reduction and risk stratification as an inpatient. - Lab Data Lab results reviewed: Yes I reviewed the patient's lab results. Result diagrams: 07/21/17 15:59 07/21/17 15:59 Lab Results 07/21/17 07/21/17 07/21/17 Range/Units 14:37 15:59 15:59 WBC 10.3 (4.3-11.1) K/mcL RBC 3.83 (3.82-4.97) M/mcL Hgb 10.6 L (11.5-15.4) g/dL Hct 33.1 L (35.3-44.9) % MCV 86.4 (83.0-100.0) fL MCH 27.7 L (28.0-33.3) pg MCHC 32.0 (31.6-35.5) g/dL RDW 16.0 H (11.5-14.5) % Plt Count 251 (140-400) K/mcL MPV 11.6 (9.4-12.4) fL Immature Gran % 1.2 (0-4) % Seg Neutrophils % 84.9 % Lymphocytes % 4.9 % Monocytes % 5.8 % Eosinophils % 2.9 % Basophils % 0.3 % Neutrophils # 8.7 (1.6-8.9) K/mcL Lymphocytes # 0.5 L (0.6-4.6) K/mcL Monocytes # 0.6 (0.0-1.3) K/mcL Eosinophils # 0.3 (0.0-0.6) K/mcL Basophils # 0.0 (0.0-0.2) K/mcL Sodium 132 L (136-145) mEq/L Potassium 3.6 (3.5-5.1) mEq/L Chloride 94 L (98-107) mEq/L Carbon Dioxide 25 (23-29) mEq/L BUN 36 H (6-20) mg/dL Creatinine 4.98 H (0.60-1.20) mg/dL Est GFR ( Amer) 12 L (> 60) Est GFR (Non-Af Amer) 10 L (> 60) BUN/Creatinine Ratio 7 (6-26) Glucose 300 H (70-105) mg/dL Calculated Osmolality 294 (280-300) Calcium 9.0 (8.6-10.3) mg/dL Phosphorus 4.9 H (2.7-4.5) mg/dL Magnesium 1.9 (1.6-2.6) mg/dL Total Bilirubin 0.4 (0.3-1.0) mg/dL AST 8 L (13-39) Units/L ALT 9 (7-52) Units/L Alkaline Phosphatase 118 H (34-104) Units/L Troponin I (< 0.04) ng/mL Serum Total Protein 8.1 (6.4-8.9) g/dL Albumin 3.7 (3.5-5.7) g/dL Globulin 4.4 H (2.4-3.5) g/dL Albumin/Globulin Ratio 0.8 L (1.1-2.2) Specimen Rejected Clotted 07/21/17 Range/Units 15:59 WBC (4.3-11.1) K/mcL RBC (3.82-4.97) M/mcL Hgb (11.5-15.4) g/dL Hct (35.3-44.9) % MCV (83.0-100.0) fL MCH (28.0-33.3) pg MCHC (31.6-35.5) g/dL RDW (11.5-14.5) % Plt Count (140-400) K/mcL MPV (9.4-12.4) fL Immature Gran % (0-4) % Seg Neutrophils % % Lymphocytes % % Monocytes % % Eosinophils % % Basophils % % Neutrophils # (1.6-8.9) K/mcL Lymphocytes # (0.6-4.6) K/mcL Monocytes # (0.0-1.3) K/mcL Eosinophils # (0.0-0.6) K/mcL Basophils # (0.0-0.2) K/mcL Sodium (136-145) mEq/L Potassium (3.5-5.1) mEq/L Chloride (98-107) mEq/L Carbon Dioxide (23-29) mEq/L BUN (6-20) mg/dL Creatinine (0.60-1.20) mg/dL Est GFR ( Amer) (> 60) Est GFR (Non-Af Amer) (> 60) BUN/Creatinine Ratio (6-26) Glucose (70-105) mg/dL Calculated Osmolality (280-300) Calcium (8.6-10.3) mg/dL Phosphorus (2.7-4.5) mg/dL Magnesium (1.6-2.6) mg/dL Total Bilirubin (0.3-1.0) mg/dL AST (13-39) Units/L ALT (7-52) Units/L Alkaline Phosphatase (34-104) Units/L Troponin I 0.15 H* (< 0.04) ng/mL Serum Total Protein (6.4-8.9) g/dL Albumin (3.5-5.7) g/dL Globulin (2.4-3.5) g/dL Albumin/Globulin Ratio (1.1-2.2) Specimen Rejected - Radiology Data Radiology results reviewed: Yes I reviewed the patient's radiology results. Brain MRI 07/21/17 14:06 IMPRESSION: 1. No acute intracranial abnormality. No acute infarct. 2. Scattered foci of T2 FLAIR hyperintensity are seen within the supratentorial white matter, which are nonspecific. Diagnostic considerations include sequelae of chronic migraines, demyelinating lesions or perhaps vasculitis. Early chronic microvascular ischemic changes are also a possibility given advanced atherosclerosis seen on the prior CT. 3. Minimal global parenchymal volume loss. D/ / Francisco Javier Solorzano MD / Francisco Javier Solorzano MD Interpreting Provider: Francisco Javier Solorzano MD - EKG Data EKG #1 EKG attestation: Yes I reviewed and interpreted this EKG. EKG shows normal: sinus rhythm Rate: normal Rhythm: NSR [place]/QRS: left axis deviation T wave inversions noted in: I, III Interpretation: unchanged when compared to prior tracing (date) (05/2017) Carmina - Carmina Situation: Demographics Background: Presenting Complaint Assessment: Vital Signs, Course and respsone to treatment, Patient/Family Expectation Recommendation: Barrier(s) to disposition, Recommendation based on pending studies, treatments, or consults S.B.ACatina Report Given to: Hospitalist Carmina Repor Time: 18:11 Attestation Statement - Attestation Attestation: I examined this patient and my medical decision-making was reviewed with the Resident Physician. I agree with the documented findings, disposition and treatment plan as described except to the extent set forth below. Neurologically normal at time of ED arrival. Agree w TIA diagnosis. Admit for further work up.
[2017-07-21] MEDS ORDERED: *HR* Promethazine 25 MG/ML VIAL IM ONE (15:42)
[2017-07-21 16:16] LABS: Basophils % 0.3 %; Eosinophils # 0.3 K/mcL (0.0-0.6); Eosinophils % 2.9 %; Hematocrit 33.1 % (35.3-44.9); Hemoglobin 10.6 g/dL (11.5-15.4); Immature Granulocytes % 1.2 % (0-4); Lymphocytes # 0.5 K/mcL (0.6-4.6); Lymphocytes % 4.9 %; Mean Corpuscular Hemoglobin 27.7 pg (28.0-33.3); Mean Corpuscular Volume 86.4 fL (83.0-100.0); Mean Platelet Volume 11.6 fL (9.4-12.4); Monocytes # 0.6 K/mcL (0.0-1.3); Monocytes % 5.8 %; Neutrophils # 8.7 K/mcL (1.6-8.9); Platelet Count 251 K/mcL (140-400); Red Blood Count 3.83 M/mcL (3.82-4.97); Segmented Neutrophils % 84.9 %
[2017-07-21] MEDS ORDERED: *HR* FentaNYL (PF) 100 MCG/2 ML VIAL IVP ONE ×2 (16:32→16:35)
[2017-07-21 16:54] LABS: Albumin 3.7 g/dL (3.5-5.7); Albumin/Globulin Ratio 0.8 (1.1-2.2); Bilirubin,Total 0.4 mg/dL (0.3-1.0); Globulin 4.4 g/dL (2.4-3.5); Magnesium 1.9 mg/dL (1.6-2.6); Phosphorous 4.9 mg/dL (2.7-4.5); Potassium 3.6 mEq/L (3.5-5.1); Total Protein 8.1 g/dL (6.4-8.9)
[2017-07-21] MEDS: *HR* LORazepam 2 MG/ML VIAL IVP ONE (17:07)
[2017-07-21] MEDS ORDERED: Aspirin 81 MG TAB.CHEW PO ONE (17:47)
[2017-07-21] MEDS ORDERED: Ketamine *HR* 500 MG/10 ML MDV IVP ONE (18:14)
[2017-07-21] MEDS ORDERED: Ketamine *HR* 500 MG/10 ML MDV IV ONE (18:33)
[2017-07-21] MEDS ORDERED: Naloxone 0.4 MG/ML INJ IVP PRN (21:24)
--- NOTE | 2017-07-21 21:32 | Internal Med History&Physical ---
Date of Encounter: 07/21/17 Time of Encounter: 21:31 Assessment and Plan (1) TIA (transient ischemic attack) Current visit: Yes Status: Acute uncertain whether this is TIA ?? but this may be related to hypoperfusion due to dialysis with volume shifts ?? , MRI negative for CVA. start asa 81, already on lipitor monitor with neuro checks tele Qualifiers: Transient cerebral ischemia type: other Qualified Code(s): G45.8 - Other transient cerebral ischemic attacks and related syndromes (2) ESRD (end stage renal disease) Current visit: Yes Status: Chronic gets MWF HD with Dr Aly (3) HTN (hypertension) Current visit: No Status: Chronic continue BP. Adjust as needed Qualifiers: Hypertension type: essential hypertension Qualified Code(s): I10 - Essential (primary) hypertension Internal Medicine - H&P: HPI Chief complaint: neurological symptoms History of present illness: Ms. Benavidez is a 37 year old female ESRD on HD who presents with acute onset neurological change after awakening up from HD. She is with Dr Aly if nephrology and gets MWF HD. Today after HD when she woke up at 1-2 pm, she developed symptoms of "couldn't hear", "blurry tunnel vision" associated with paresthesia symptoms of right finger, arm up to the face and neck which did not get better initially. In the ED, she was given an ASA and completed MRI which r/o CVA. On evaluation by myself in the ED, she reported that her symptoms (vision, hearing) have resolved and now has headache , body aches. EKG personally reviewed with rate 88, NSR, non-specific T changes MR/MR head/brain wo con IMPRESSION: 1. No acute intracranial abnormality. No acute infarct. 2. Scattered foci of T2 FLAIR hyperintensity are seen within the supratentorial white matter, which are nonspecific. Diagnostic considerations include sequelae of chronic migraines, demyelinating lesions or perhaps vasculitis. Early chronic microvascular ischemic changes are also a possibility given advanced atherosclerosis seen on the prior CT. 3. Minimal global parenchymal volume loss. Past Med Surg Social Fam HX - Past Medical History Medical history: coronary artery disease, diabetes, dialysis, hyperlipidemia, hypertension, myocardial infarction, renal disease Psychiatric history: anxiety, depression - Past Surgical History Surgical History: angioplasty/stent, hysterectomy, other (Right below knee amputation, left transmetatarsal amputation) - Social History Smoking Status: Former smoker Smokeless Tobacco Status: No Alcohol use: none Drug use: none - Family History Mother Adopted: No Family Member Ethnicity: Non- Living Status: Still Living Hx Family Cardiac Disorders: Yes (Father with coronary artery disease) Hx Family Respiratory Disorders: No Hx Family Cancer: Yes (Breast) Hx Family GI Disorders: No Hx Family Endocrine Disorder: Yes (Mother with dm) Hx Family Neuromuscular Disorders: No Hx Family Neurologic Disorders: No Hx Family HEENT Disorders: No Hx Family Autoimmune Disorders: No Internal Medicine - H&P: Meds HYDROcodone/Acet 10/325 mg [[place] 10-325 mg] 1 tab PO QID PRN 01/21/16 [History] Atorvastatin [Lipitor] 40 mg PO HS #30 tablet 05/14/17 [Rx] Bethanechol Chloride [Urecholine] 5 mg PO BID 06/22/17 [History] Omeprazole [PriLOSEC] 40 mg PO DAILY 06/22/17 [History] Carvedilol [Coreg] 25 mg PO BIDWM #60 tablet 06/25/17 [Rx] Lisinopril [Zestril] 20 mg PO BID #30 tablet 06/25/17 [Rx] amLODIPine [Norvasc] 10 mg PO DAILY #30 tablet 06/25/17 [Rx] 3 Allergy/AdvReac Type Severity Reaction Status Date / Time Amoxicillin Allergy Hives Verified 06/22/17 14:08 metoclopramide [From Reglan] AdvReac Shakiness Verified 06/22/17 14:08 ondansetron AdvReac Vomiting Verified 06/22/17 14:08 [From Zofran (as hydrochloride)] All Systems PM: A 10-system review of systems was performed and is negative for pertinent findings except as documented above in the HPI. Review of systems: ROS 14 point review of systems reviewed as best as possible given presentation. Pertinent positive or negative as per HPI or otherwise reviewed as negative - Constitutional Vitals: Temp Pulse Resp BP Pulse Ox 97.8 F 85 18 178/91 96 07/21/17 13:57 07/21/17 19:49 07/21/17 19:49 07/21/17 19:49 07/21/17 19:49 Exam: General - AAO x 3 Psych - Appropriate affect/speech. No agitation Eyes - [place]. Eye lids intact. No scleral icterus Neuro - No gross peripheral or central neuro deficits with intact CN 2-12 exam Heart - Sinus. RRR. S1 and S2 present. No added HS/murmurs appreciated. No elevated JVD appreciated. Lung - Adequate air entry b/l, No crackles/wheezes appreciated GI - Soft, non-tender. No hepatosplenomegaly/ascites. BS+ - No CVA/suprapubic tenderness or palpable bladder distension Skin - Intact. No rash/petechiae/ecchymosis. Warm extremities MSK - Joints with normal ROM. No joint swellings Internal Med - H&P Results - Labs CBC & Chem 7: 07/21/17 15:59 07/21/17 15:59
[2017-07-21] MEDS ORDERED: Promethazine 12.5 MG in 0.9 % Sodium Chloride 50 ML IVPB PRN (22:33)
[2017-07-21] MEDS: *HR* HYDROcodone/Acet 10/325 mg TABLET PO PRN (23:19)
[2017-07-22] MEDS ORDERED: Insulin DETEMIR 100 UNIT/ML X5UNITS SQ SCH (00:30)
[2017-07-22] MEDS ORDERED: *HR* Dextrose 50 % in Water (Syg) 50 ML SYRINGE IVP PRN ×2 (00:37→00:55)
[2017-07-22] MEDS ORDERED: D5% in Water 1,000 ML IVC PRN ×2 (00:37→00:55)
[2017-07-22] MEDS ORDERED: Dextrose Gel 15 GM/37.5 ML TUBE PO PRN ×4 (00:37→00:55)
[2017-07-22] MEDS ORDERED: Insulin LISPRO 300 UNITS/3 ML VIAL SQ ONE (00:56)
[2017-07-22 05:08] LABS: Basophils % 0.3 %; Eosinophils # 0.3 K/mcL (0.0-0.6); Hematocrit 29.8 % (35.3-44.9); Hemoglobin 9.3 g/dL (11.5-15.4); Immature Granulocytes % 0.3 % (0-4); Lymphocytes # 0.8 K/mcL (0.6-4.6); Lymphocytes % 13.9 %; Mean Corpuscular HGB Conc 31.2 g/dL (31.6-35.5); Mean Corpuscular Hemoglobin 27.9 pg (28.0-33.3); Mean Corpuscular Volume 89.5 fL (83.0-100.0); Mean Platelet Volume 11.8 fL (9.4-12.4); Monocytes # 0.4 K/mcL (0.0-1.3); Monocytes % 6.8 %; Neutrophils # 4.5 K/mcL (1.6-8.9); Nucleated Red Blood Cells 0.5 /100 WBC (0); Platelet Count 216 K/mcL (140-400); Red Blood Count 3.33 M/mcL (3.82-4.97); Red Cell Distribution Width 16.2 % (11.5-14.5); Segmented Neutrophils % 73.7 %
[2017-07-22] MEDS: *HR* Heparin 5,000 UNIT/ML VIAL SQ SCH ×2 (05:35→16:07)
[2017-07-22 05:46] LABS: Calcium 8.4 mg/dL (8.6-10.3)
[2017-07-22] MEDS ORDERED: Insulin LISPRO 300 UNITS/3 ML VIAL SQ SCH ×3 (07:30→21:00)
[2017-07-22] MEDS: Insulin LISPRO 300 UNITS/3 ML VIAL SQ SCH ×6 (07:41→16:07)
[2017-07-22] MEDS: Aspirin 81 MG TAB.CHEW PO SCH (07:41)
[2017-07-22] MEDS: Lisinopril 20 MG TABLET PO SCH ×2 (07:41→20:24)
[2017-07-22] MEDS: amLODIPine 5 MG TABLET PO SCH (07:41)
[2017-07-22 08:36] LABS: Hepatitis B Surface Antigen Nonreactive (Nonreactive)
[2017-07-22] MEDS ORDERED: BETHANECHOL CHLORIDE 5 MG PO SCH (09:00)
--- NOTE | 2017-07-22 10:04 | Nephrology Consult Note ---
Date of Encounter: 07/22/17 Time of Encounter: 08:20 Assessment and Plan (1) ESRD (end stage renal disease) on dialysis Current Visit: No Status: Chronic TIA versus hypoperfusion while on HD. No HD today. Will continue to monitor. History of Present Illness - Reason for Consult end stage renal disease - History of Present Illness Ms. Benavidez is a 37 year old female who dialyzes at [facility] on MWF, last HD yesterday, coming of somewhat early when Ms. Benavidez was transferred from dialysis unit with dizziness, numbness and slurred speech. Other PMH-coronary artery disease, diabetes, dialysis, hyperlipidemia, hypertension, myocardial infarction, renal disease, angioplasty/stent, hysterectomy, Right below knee amputation, left transmetatarsal amputation, anxiety, depression. MR of head/ brain negative for acute findings. Symptoms resolved while still in ER. This morning patient is at her known baseline, denies any symptoms. Past Med Surg Social Fam HX - Past Medical History Medical history: coronary artery disease, diabetes, dialysis, hyperlipidemia, hypertension, myocardial infarction, renal disease Psychiatric history: anxiety, depression - Past Surgical History Surgical History: angioplasty/stent, hysterectomy, other - Social History Smoking Status: Former smoker Smokeless Tobacco Status: No Alcohol use: none Drug use: none - Family History Mother Adopted: No Family Member Ethnicity: Non- Living Status: Still Living Hx Family Cardiac Disorders: Yes (Father with coronary artery disease) Hx Family Respiratory Disorders: No Hx Family Cancer: Yes (Breast) Hx Family GI Disorders: No Hx Family Endocrine Disorder: Yes (Mother with dm) Hx Family Neuromuscular Disorders: No Hx Family Neurologic Disorders: No Hx Family HEENT Disorders: No Hx Family Autoimmune Disorders: No Medications and Allergies HYDROcodone/Acet 10/325 mg [[place] 10-325 mg] 1 tab PO QID PRN 01/21/16 [History] Atorvastatin [Lipitor] 40 mg PO HS #30 tablet 05/14/17 [Rx] Bethanechol Chloride [Urecholine] 5 mg PO BID 06/22/17 [History] Omeprazole [PriLOSEC] 40 mg PO DAILY 06/22/17 [History] Carvedilol [Coreg] 25 mg PO BIDWM #60 tablet 06/25/17 [Rx] Lisinopril [Zestril] 20 mg PO BID #30 tablet 06/25/17 [Rx] amLODIPine [Norvasc] 10 mg PO DAILY #30 tablet 06/25/17 [Rx] 3 Allergy/AdvReac Type Severity Reaction Status Date / Time Amoxicillin Allergy Hives Verified 06/22/17 14:08 metoclopramide [From Reglan] AdvReac Shakiness Verified 06/22/17 14:08 ondansetron AdvReac Vomiting Verified 06/22/17 14:08 [From Zofran (as hydrochloride)] Review of Systems All Systems: reviewed and no additional remarkable complaints except as stated Exam - Vital Signs Vital signs: Initial Vital Signs Temp Pulse Resp BP Pulse Ox 97.8 F 84 18 181/105 96 07/21/17 13:57 07/21/17 13:57 07/21/17 13:57 07/21/17 13:57 07/21/17 13:57 Vital Signs - Last 8 Hours Temp Pulse Resp BP Pulse Ox 07/22/17 06:29 98.1 F 90 18 177/77 98 07/22/17 04:47 97.4 F L 91 20 150/86 99 Intake and Output 07/21/17 07/22/17 07/22/17 23:59 07:59 15:59 Intake Total 0 / 0 170.5 / 170.5 Output Total 0 / 0 Balance 0 / 0 170.5 / 170.5 Intake: IV Fluids 50.5 / 50.5 Phenergan 12.5 MG In 0.9 % 50.5 / 50.5 Sodium Chloride 50 ML @ 204 mls /hr IVPB Q6HR PRN Rx#: [id number] Oral 0 / 0 120 / 120 Output: Urine 0 / 0 Other: Meal Dinner Percent of Meal Consumed 100% Blood Glucose* 393 - General Appearance General appearance: well-developed, well-nourished, appears started age EENT: mucous membranes moist Neck: no JVD Respiratory: clear Cardiology: no edema, regular rate, regular rhythm Additional Comments: right BKA Gastrointestinal: normoactive bowel sounds, no tenderness Integumentary: warm and dry Neurologic: alert and oriented x3 Psychiatric: mood/affect appropriate, cooperative Results - Lab Results 07/22/17 04:25 07/22/17 04:25 Most recent lab results Calcium 8.4 mg/dL (8.6-10.3) L 07/22/17 04:25 Phosphorus 4.9 mg/dL (2.7-4.5) H 07/21/17 15:59 Magnesium 1.9 mg/dL (1.6-2.6) 07/21/17 15:59 Consult Discharge Plan - Plan Referrals: Colt Espinoza MD [Primary Care Provider] -
[2017-07-22] MEDS: *HR* HYDROcodone/Acet 10/325 mg TABLET PO PRN ×2 (10:11→23:17)
[2017-07-22] MEDS: *HR* Promethazine 25 MG/ML VIAL IVP PRN ×2 (11:20→15:58)
[2017-07-22] MEDS: Insulin DETEMIR 100 UNIT/ML X5UNITS SQ SCH ×2 (11:20→20:25)
[2017-07-22] MEDS ORDERED: *HR* Morphine 2 MG/ML SYRINGE IVP ONE ×2 (16:10→19:58)
--- NOTE | 2017-07-22 16:20 | Electrocardiograph Report ---
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
[2017-07-22 17:14] LABS: Hemoglobin A1C 10.7 %
--- NOTE | 2017-07-22 18:35 | Internal Med Progress Note ---
Date of Encounter: 07/22/17 Time of Encounter: 09:15 - Assessment and plan (1) TIA (transient ischemic attack) Current Visit: Yes Status: Acute Assessment and plan: Blurred vision, hearing loss, diffuse numbness currently resolved; c/o- headache. MRI brain in the ER showed no e/o acute infarct/bleed, but diffuse microvascular disease; continue ASA and statin; Telemetry monitoring; patient has chronic Troponin leak, around 0.15; Echocardiogram from 04/2017 showed preserved EF, mild concentric LVH, indeterminate diastolic function; will check CTA head/neck; Qualifiers: Transient cerebral ischemia type: other Qualified Code(s): G45.8 - Other transient cerebral ischemic attacks and related syndromes (2) Gastroparesis Current Visit: Yes Status: Chronic Assessment and plan: continues to have nausea; continue PRN antiemetics; (3) CAD (coronary artery disease) Current Visit: Yes Status: Chronic Assessment and plan: not noted to be on ASA, started here; continue beta keesha, statin, Telemetry monitoring; Qualifiers: Coronary Disease-Associated Artery/Lesion type: [place] artery [place] vs. transplanted heart: [place] heart Associated angina: without angina Qualified Code(s): I25.10 - Atherosclerotic heart disease of [place] coronary artery without angina pectoris (4) End stage renal disease on dialysis due to type 1 diabetes mellitus Current Visit: Yes Status: Chronic Assessment and plan: Nephrology has been consulted for HD needs; (5) Diabetes mellitus Current Visit: Yes Status: Chronic Assessment and plan: Noted to have uncontrolled blood sugars; will increase basal insulin and sliding scale; continue Accucheck blood glucose monitoring; HbA1C; Qualifiers: Diabetes mellitus type: type 1 Diabetes mellitus complication status: with kidney complications Diabetes mellitus complication detail: with chronic kidney disease Chronic kidney disease stage: on chronic dialysis Qualified Code(s): E10.22 - Type 1 diabetes mellitus with diabetic chronic kidney disease ; N18.6 - End stage renal disease; N18.6 - End stage renal disease; N18.6 - End stage renal disease; N18.6 - End stage renal disease; Z99.2 - Dependence on renal dialysis; Z99.2 - Dependence on renal dialysis; Z99.2 - Dependence on renal dialysis; Z99.2 - Dependence on renal dialysis - Subjective Interval history: Reports generalized weakness and back pain, requesting at least one dose of IV narcotic pain med to help with this; resolved neurological symptoms of hearing loss, blurred vision, numbness; Patient continued to be verbally abusive and difficult to the nursing staff during the day, and towards evening, reported severe headache, not relived with PO pain meds; mother at bedside, reporting patient's father had similar symptoms and with brain aneurysmal rupture; d/w them that plan is to obtain CTA head and neck and give a dose of IV Morphine; - Constitutional Vitals: Temp Pulse Resp BP Pulse Ox 97.7 F 98 18 198/116 98 07/22/17 15:59 07/22/17 15:59 07/22/17 15:59 07/22/17 15:59 07/22/17 15:59 General appearance: Present: mild distress, A&O X 3, answers questions appropriately - Respiratory Respiratory exam: Present: CTAB. Absent: accessory muscle use, rales, rhonchi, wheezes - Cardiovascular Cardiovascular exam: Present: RRR, +S1, +S2. Absent: diastolic murmur, gallop, rubs, systolic murmur - GI/Abdominal GI/Abdominal exam: Present: normal bowel sounds, soft, no peritoneal signs. Absent: distended, tenderness - Extremities Exam Extremities exam: Present: normal inspection (B/L distal amputations, TMSA), pedal edema (trace), warm, radial pulses palpable and symmetrical. Absent: calf tenderness, cyanotic - Neurological Exam Neurological exam: Present: CN II-XII intact, oriented X3, no focal deficits. Absent: pronater drift, facial droop, speech deficit Internal Medicine: Result - Labs CBC & Chem 7: 07/23/17 03:35 07/23/17 03:35 Labs: Short CBC 07/22/17 Range/Units 04:25 WBC 6.1 (4.3-11.1) K/mcL Hgb 9.3 L (11.5-15.4) g/dL Hct 29.8 L (35.3-44.9) % Plt Count 216 (140-400) K/mcL Neutrophils # 4.5 (1.6-8.9) K/mcL BMP 07/22/17 04:25 Sodium 132 L Potassium 4.0 Chloride 97 L Carbon Dioxide 22 L BUN 49 H Creatinine 6.17 H Glucose 485 H Calcium 8.4 L Cardiac Enzymes 07/21/17 07/22/17 Range/Units 22:39 04:25 Troponin I 0.15 H* 0.16 H* (< 0.04) ng/mL Consult Discharge Plan - Plan Instructions: Aspirin (By mouth), Insulin Detemir (Injection) Additional Instructions: F/up with HD 3times/week- [facility] Referrals: Colt Espinoza MD [Primary Care Provider] - 08/05/17 2:00 pm Prescriptions: Aspirin 81 mg PO DAILY #30 tab.chew Insulin DETEMIR [Levemir] 70 unit SQ BID 30 Days [id number]
[2017-07-22] MEDS ORDERED: *HR* Promethazine 25 MG/ML VIAL IVP ONE (19:46)
[2017-07-23] MEDS: *HR* Promethazine 25 MG/ML VIAL IVP PRN ×3 (00:02→17:37)
[2017-07-23] MEDS ORDERED: *HR* Morphine 2 MG/ML SYRINGE IVP ONE (01:33)
[2017-07-23 03:59] LABS: Basophils % 0.4 %; Eosinophils # 0.3 K/mcL (0.0-0.6); Eosinophils % 3.5 %; Hematocrit 30.3 % (35.3-44.9); Hemoglobin 9.4 g/dL (11.5-15.4); Immature Granulocytes % 0.4 % (0-4); Lymphocytes # 1.2 K/mcL (0.6-4.6); Lymphocytes % 15.6 %; Mean Corpuscular Hemoglobin 27.9 pg (28.0-33.3); Mean Corpuscular Volume 89.9 fL (83.0-100.0); Mean Platelet Volume 11.1 fL (9.4-12.4); Monocytes # 0.7 K/mcL (0.0-1.3); Monocytes % 10.1 %; Neutrophils # 5.2 K/mcL (1.6-8.9); Platelet Count 235 K/mcL (140-400); Red Blood Count 3.37 M/mcL (3.82-4.97); Red Cell Distribution Width 16.9 % (11.5-14.5)
[2017-07-23 04:14] LABS: Albumin 3.3 g/dL (3.5-5.7); Calcium 8.9 mg/dL (8.6-10.3); Phosphorous 8.8 mg/dL (2.7-4.5); Potassium 4.7 mEq/L (3.5-5.1)
[2017-07-23 04:43] LABS: Hepatitis B Surface Antibody 5.57 mIU/mL
[2017-07-23] MEDS: *HR* Heparin 5,000 UNIT/ML VIAL SQ SCH ×2 (05:36→18:43)
--- NOTE | 2017-07-23 09:35 | Nephrology Progress Note ---
Date of Encounter: 07/23/17 Time of Encounter: 09:10 - Assessment and Plan (1) ESRD (end stage renal disease) on dialysis Current Visit: No Status: Chronic HD today, keeping MWF schedule. Orders given. Subjective Interval history: Sitting up in bed, breakfast tray half eaten. States had emesis throughout night. Objective - Vital Signs Vital signs: Vital Signs Temp Pulse Resp BP Pulse Ox 07/23/17 08:15 97.8 F 89 14 109/75 98 07/23/17 05:14 98.5 F 87 18 128/76 98 07/23/17 00:44 99.2 F 101 18 147/81 97 07/22/17 20:48 108 149/79 07/22/17 20:13 100 07/22/17 19:55 98.4 F 105 16 189/102 100 07/22/17 15:59 97.7 F 98 18 198/116 98 07/22/17 10:47 97.7 F 87 17 146/79 99 Intake and Output 07/22/17 07/23/17 07/23/17 23:59 07:59 15:59 Intake Total 200 / 200 650 / 650 Output Total 0 / 0 0 / 0 Balance 200 / 200 650 / 650 Intake: Oral 200 / 200 650 / 650 Output: Urine 0 / 0 0 / 0 Other: # Urine Diapers 1 Weight 89.5 kg Blood Glucose* 88 136 166 Patient Weight 07/23/17 23:59 Weight 89.5 kg - General Appearance General appearance: Present: well-developed, well-nourished, appears started age EENT: Present: mucous membranes moist Neck: Present: no JVD Respiratory: Present: clear Cardiology: Present: no edema, regular rate, regular rhythm Additional Comments: right BKA Gastrointestinal: Present: normoactive bowel sounds, no tenderness Integumentary: Present: warm and dry Neurologic: Present: alert and oriented x3 - Lab 07/23/17 03:35 07/23/17 03:35 Most recent lab results Calcium 8.9 mg/dL (8.6-10.3) 07/23/17 03:35 Phosphorus 8.8 mg/dL (2.7-4.5) H 07/23/17 03:35 Magnesium 1.9 mg/dL (1.6-2.6) 07/21/17 15:59 Consult Discharge Plan - Plan Referrals: Colt Espinoza MD [Primary Care Provider] - 08/05/17 2:00 pm
[2017-07-23] MEDS ORDERED: *HR* Heparin 10,000 UNIT/10 ML VIAL IV PRN (09:38)
[2017-07-23] MEDS ORDERED: 0.9 % Sodium Chloride 250 ML IVC PRN (09:38)
[2017-07-23] MEDS: Insulin DETEMIR 100 UNIT/ML X5UNITS SQ SCH (10:13)
[2017-07-23] MEDS: Insulin LISPRO 300 UNITS/3 ML VIAL SQ SCH ×6 (10:14→17:37)
[2017-07-23] MEDS: *HR* HYDROcodone/Acet 10/325 mg TABLET PO PRN (10:15)
[2017-07-23] MEDS: Aspirin 81 MG TAB.CHEW PO SCH (10:15)
--- NOTE | 2017-07-23 12:34 | Discharge Summary ---
Date of Encounter: 07/23/17 Time of Encounter: 10:30 - Discharge Diagnosis (1) TIA (transient ischemic attack) Priority: Primary Status: Acute Qualifiers: Transient cerebral ischemia type: other Qualified Code(s): G45.8 - Other transient cerebral ischemic attacks and related syndromes (2) HTN (hypertension) Priority: Secondary Status: Chronic Qualifiers: Hypertension type: essential hypertension Qualified Code(s): I10 - Essential (primary) hypertension (3) Gastroparesis Priority: Secondary Status: Chronic (4) ESRD (end stage renal disease) on dialysis Priority: Secondary Status: Chronic (5) Anemia Priority: Secondary Status: Chronic Qualifiers: Anemia type: due to chronic kidney disease Chronic kidney disease stage: on chronic dialysis Qualified Code(s): N18.6 - End stage renal disease; D63.1 - Anemia in chronic kidney disease; Z99.2 - Dependence on renal dialysis (6) CAD (coronary artery disease) Priority: Secondary Status: Chronic Qualifiers: Coronary Disease-Associated Artery/Lesion type: [place] artery [place] vs. transplanted heart: [place] heart Associated angina: without angina Qualified Code(s): I25.10 - Atherosclerotic heart disease of [place] coronary artery without angina pectoris (7) Medical non-compliance Priority: Primary Status: Chronic (8) Diabetes Priority: Secondary Status: Chronic Qualifiers: Diabetes mellitus type: type 2 Diabetes mellitus complication status: with circulatory complication Diabetes mellitus complication detail: with other circulatory complications Diabetes mellitus detention insulin use: with detention use Qualified Code(s): E11.59 - Type 2 diabetes mellitus with other circulatory complications; Z79.4 - skilled nursing (current) use of insulin - Discharge Medications Prescriptions: Aspirin 81 mg PO DAILY #30 tab.chew Insulin DETEMIR [Levemir] 70 unit SQ BID 30 Days [id number] Home Medications: HYDROcodone/Acet 10/325 mg [[place] 10-325 mg] 1 tab PO QID PRN 01/21/16 [History] Atorvastatin [Lipitor] 40 mg PO HS #30 tablet 05/14/17 [Rx] Bethanechol Chloride [Urecholine] 5 mg PO BID 06/22/17 [History] Omeprazole [PriLOSEC] 40 mg PO DAILY 06/22/17 [History] Carvedilol [Coreg] 25 mg PO BIDWM #60 tablet 06/25/17 [Rx] Lisinopril [Zestril] 20 mg PO BID #30 tablet 06/25/17 [Rx] amLODIPine [Norvasc] 10 mg PO DAILY #30 tablet 06/25/17 [Rx] Aspirin 81 mg PO DAILY #30 tab.chew 07/23/17 [Rx] Insulin DETEMIR [Levemir] 70 unit SQ BID 30 Days [id number] 07/23/17 [Rx] Allergies/Adverse Reactions: 3 Allergy/AdvReac Type Severity Reaction Status Date / Time Amoxicillin Allergy Hives Verified 06/22/17 14:08 metoclopramide [From Reglan] AdvReac Shakiness Verified 06/22/17 14:08 ondansetron AdvReac Vomiting Verified 06/22/17 14:08 [From Zofran (as hydrochloride)] Procedures/tests Complete & Pending: Procedures Performed prior 72 hours Category Date Time Status CT angio head [CT] Routine Cat Scan 07/23/17 08:[address] angio neck [CT] Routine Cat Scan 07/23/17 08:00 Draft EV carotid duplex imaging BI Routine Y 07/23/17 09:25 Completed Date of admission: 07/21/17 21:24 Primary care physician: Colt Espinoza MD Consults: 07/21/17 21:29 Consult to Nephrology [CONS] Routine Consulting Provider: [facility] Ganesh SUAREZ Reason for Consult: ESRD on MWF HD Call Completed: No 07/21/17 23:56 Consult to Coat Padder [CONS] Routine Reason for SW Consult: [place] [id number], [facility], [facility] [place] 07/22/17 00:11 Consult to Wound Care [CONS] Routine Reason for Consult: Left outter ankle wound, diabetic with amputations and CAD, states Dr. Gatica is suppose to see Call Completed: No 07/22/17 15:42 Consult to Podiatry [CONS] Routine Consulting Provider: [facility] Reason for Consult: diabetic ulcer to the left lateral ankle Time Notified: 15:43 Call Completed: No 07/23/17 09:45 Consult to Dialysis [CONS] ONCE Discharging clinician: Ruthann Turner Anticipated date of discharge: 07/23/17 - Patient Status Disposition: Home Health Service Condition: Fair Functional capacity at discharge: uses cane/walker Overall status at discharge: patient is progressing back to baseline - Discharge Instructions Instructions: Aspirin (By mouth), Insulin Detemir (Injection) Follow Up With: Colt Espinoza MD [Primary Care Provider] - 08/05/17 2:00 pm Additional Instructions: F/up with HD 3times/week- MWF - Diet and Activity Activity: as per physical therapy, resume usual activities as tolerated, wear oxygen at all times Diet: diabetic diet, low fat, low cholesterol, low salt diet, other (renal diet) Hospital course: Ms. Benavidez is a 37 year old female with the above multiple medical problems, who was admitted with neurological symptoms from hemodialysis unit. Patient had sudden and transient tunnel vision, hearing loss and nonspecific numbness. MRI brain was done in the emergency room, showed no evidence of acute infarct but did show chronic microvascular disease. Patient was noted to have uncontrolled diabetes with hemoglobin A1c 10.7% and her insulin was adjusted white in the hospital. She continued to report portal generalized body aches and significant headache, demanded IV narcotic analgesics while in the hospital. CT angiogram of head and neck revealed no evidence of aneurysm/bleed but did show calcified atherosclerotic plaque in the cavernous segment of the internal carotid artery with mild to moderate stenosis bilaterally. Patient was extensively counseled regarding blood sugar and blood pressure control, which were noted to be elevated, along with dietary restrictions and regular hemodialysis. She is currently medically stable for discharge with outpatient follow-up. Home health services are being resumed. - Time Spent with Patient Total time spent providing and/or coordinating discharge services: Greater than 30 minutes (50 min) - Constitutional Vitals: Temp Pulse Resp BP Pulse Ox 97.9 F 93 18 167/82 98 07/23/17 11:04 07/23/17 11:04 07/23/17 11:04 07/23/17 11:04 07/23/17 11:04 General appearance: Present: A&O X 3, answers questions appropriately - Respiratory Respiratory exam: Present: CTAB. Absent: accessory muscle use, rales, rhonchi, wheezes
--- NOTE | 2017-07-23 12:40 | Physician Discharge Referral ---
Home Health/Hosp Referral Info Transfer to: Home Health Attending Provider: Ruthann Turner Provider in Charge Post Discharge: PCP - Diagnosis (1) TIA (transient ischemic attack) Priority: Primary Status: Acute (2) HTN (hypertension) Priority: Secondary Status: Chronic (3) Gastroparesis Priority: Secondary Status: Chronic (4) ESRD (end stage renal disease) on dialysis Priority: Secondary Status: Chronic (5) Anemia Priority: Secondary Status: Chronic (6) CAD (coronary artery disease) Priority: Secondary Status: Chronic (7) Medical non-compliance Priority: Primary Status: Chronic (8) Diabetes Priority: Secondary Status: Chronic - Respiratory Orders Oxygen / L per min (3L/min via [place]) Smoking Cessation: Smoking cessation has been advised. For more information, call the [employer] Quit Line at 7-960-DROI-NOW. - Diet/Nutrition Diet/Nutrition Orders: Renal, Cardiac, No Concentrated Sweets (diabetic) - Activity Activity Orders: Ambulate - Services Needed Following services are medically necessary services: Nursing, Home Health Aide, Physical Therapy, Occupational Therapy - Transfer Medications Prescriptions: Aspirin 81 mg PO DAILY #30 tab.chew Insulin DETEMIR [Levemir] 70 unit SQ BID 30 Days [id number] Home Medications: HYDROcodone/Acet 10/325 mg [[place] 10-325 mg] 1 tab PO QID PRN 01/21/16 [History] Atorvastatin [Lipitor] 40 mg PO HS #30 tablet 05/14/17 [Rx] Bethanechol Chloride [Urecholine] 5 mg PO BID 06/22/17 [History] Omeprazole [PriLOSEC] 40 mg PO DAILY 06/22/17 [History] Carvedilol [Coreg] 25 mg PO BIDWM #60 tablet 06/25/17 [Rx] Lisinopril [Zestril] 20 mg PO BID #30 tablet 06/25/17 [Rx] amLODIPine [Norvasc] 10 mg PO DAILY #30 tablet 06/25/17 [Rx] Aspirin 81 mg PO DAILY #30 tab.chew 07/23/17 [Rx] Insulin DETEMIR [Levemir] 70 unit SQ BID 30 Days [id number] 07/23/17 [Rx] Allergies/Adverse Reactions: 3 Allergy/AdvReac Type Severity Reaction Status Date / Time Amoxicillin Allergy Hives Verified 06/22/17 14:08 metoclopramide [From Reglan] AdvReac Shakiness Verified 06/22/17 14:08 ondansetron AdvReac Vomiting Verified 06/22/17 14:08 [From Zofran (as hydrochloride)] Certification: Further, I certify that my clinical findings support that this patient is homebound (i.e. absences from home require considerable and taxing effort and are for medical reasons or mu-ism services or infrequently or short duration when for other reasons) because: Homebound Reason: Patient requires assistance of a person or device to safely leave home, Leaving home requires considerable and taxing effort due to condition Attestation: My signature below is to certify that this patient is under my care and that I, or nurse practitioner, or a physician's licensed physical therapy assistant working with me, has a face-to -face encounter with this patient.
[2017-07-23] MEDS ORDERED: 0.9 % Sodium Chloride 1,000 ML ONE (14:19)
[2017-07-23 18:14] VITALS: BP 200/96
[2017-07-23] MEDS: amLODIPine 5 MG TABLET PO SCH (18:46)
[2017-07-23] MEDS: Lisinopril 20 MG TABLET PO SCH (18:46)
== END 2017-07-23 19:40 | disposition home health service (06) ==
LOC: 2ANU 13:53 → EMEROO 13:53 → 2ANU 20:34 → SUATTDRO 21:24
PROVIDERS: ADMIT Internal Medicine; ATTEND Internal Medicine

== ENCOUNTER 2017-08-04 20:03 | Observation (INO) ==
[2017-08-04] MEDS ORDERED: *HR* HYDROcodone/Acet 5/325 mg TABLET PO PRN (21:38)
[2017-08-04] MEDS ORDERED: Ondansetron 4 MG/2 ML VIAL IVP PRN (21:38)
[2017-08-04] MEDS ORDERED: Naloxone 0.4 MG/ML INJ IVP PRN (21:38)
[2017-08-04] MEDS ORDERED: traMADol 50 MG TABLET PO PRN (21:38)
[2017-08-04] MEDS ORDERED: *HR* Dextrose 50 % in Water (Syg) 50 ML SYRINGE IVP PRN (21:40)
[2017-08-04] MEDS ORDERED: Dextrose Gel 15 GM/37.5 ML TUBE PO PRN ×2 (21:40)
[2017-08-04] MEDS ORDERED: D5% in Water 1,000 ML IVC PRN (21:40)
[2017-08-04] MEDS ORDERED: Ipratropium/Albuterol Neb 3 ML IH PRN (21:40)
[2017-08-04] MEDS ORDERED: Insulin LISPRO 300 UNITS/3 ML VIAL SQ SCH (21:45)
--- NOTE | 2017-08-04 21:46 | Internal Med History&Physical ---
Date of Encounter: 08/04/17 Time of Encounter: 21:43 Assessment and Plan (1) Shortness of breath Current visit: No Status: Acute Will place the pt into Tele for observation her SOB is due to volume overload with missing HD Reviewed her CXR report from [facility] interstitial lung markings with small left pleural effusion..Concern for volume overload Her SOB seems to be stable, does not need any IV Lasix or emergent HD tonight watch it closely for now At this point will continue her on O2, Will give Duoneb PRN will consult Nephro in AM for possible HD in AM Reviewed her labs from [facility] WBC; 9.1, Hb 11.4 BS; 440, BUN/Cr : 66/9.15 K+ 5.1 Influenza A & B - Neg Lactic acid - 1.4 (2) Volume overload Current visit: Yes Status: Acute Pt seems to be non compliance with her HD counseled about this Qualifiers: Qualified Code(s): E87.70 - Fluid overload, unspecified (3) Chronic respiratory failure with hypoxia Current visit: Yes Status: Acute stable..not in exacerbation currently on 2 lit O2 cont close monitoring (4) ESRD (end stage renal disease) on dialysis Current visit: No Status: Chronic on M/W/F (5) HTN (hypertension) Current visit: No Status: Chronic Slightly elevated BP 174/80 will resume all her pO meds also will give IV hydralazine PRN Qualifiers: Hypertension type: essential hypertension Qualified Code(s): I10 - Essential (primary) hypertension (6) Hyperglycemia Current visit: No Status: Chronic Noticed her BS in 440 at [facility] Had given SQ insulin there cont close monitoring ISS ACHS + Levemir ADA diet (7) Insulin dependent diabetes mellitus Current visit: No Status: Chronic (8) Medical non-compliance Current visit: No Status: Chronic (9) Leg ulcer, left Current visit: Yes Status: Chronic Chronic ulcer does not look infected no need of abx cont local wound care Qualifiers: Non-pressure ulcer stage: with fat layer exposed Qualified Code(s): L97.922 - Non-pressure chronic ulcer of unspecified part of left lower leg with fat layer exposed Internal Medicine - H&P: HPI Chief complaint: Shortness of breath Admitted From: Hospital to Hospital Transfer Plans for Post Hospital Care: Home History of present illness: Ms. Benavidez is a 37 year old female with known Gastroparesis, DM2- uncontrolled, HTN, CAD , ESRD with HD on /, who missed HD today went to [facility] c/o progressively worsening SOB, chets congestion and cough. Denied any expectoration. She denied any CP. She denied any fever / sick contacts. Pt was transferred here for further care and possible HD in AM. Pt is alert, awake and x 3. Currently on 2 lit O2. She did mention she does use Home O2 @ 3lit at home. Past Med Surg Social Fam HX - Past Medical History Medical history: coronary artery disease, diabetes, dialysis, hyperlipidemia, hypertension, myocardial infarction, renal disease Psychiatric history: anxiety, depression - Past Surgical History Surgical History: angioplasty/stent, hysterectomy, other - Social History Smoking Status: Former smoker Smokeless Tobacco Status: No Alcohol use: none Drug use: none - Family History Mother Adopted: No Family Member Ethnicity: Non- Living Status: Still Living Hx Family Cardiac Disorders: Yes (Father with coronary artery disease) Hx Family Respiratory Disorders: No Hx Family Cancer: Yes (Breast) Hx Family GI Disorders: No Hx Family Endocrine Disorder: Yes (Mother with dm) Hx Family Neuromuscular Disorders: No Hx Family Neurologic Disorders: No Hx Family HEENT Disorders: No Hx Family Autoimmune Disorders: No Internal Medicine - H&P: Meds HYDROcodone/Acet 10/325 mg [[place] 10-325 mg] 1 tab PO QID PRN 01/21/16 [History] Atorvastatin [Lipitor] 40 mg PO HS #30 tablet 05/14/17 [Rx] Bethanechol Chloride [Urecholine] 5 mg PO BID 06/22/17 [History] Omeprazole [PriLOSEC] 40 mg PO DAILY 06/22/17 [History] Carvedilol [Coreg] 25 mg PO BIDWM #60 tablet 06/25/17 [Rx] Lisinopril [Zestril] 20 mg PO BID #30 tablet 06/25/17 [Rx] amLODIPine [Norvasc] 10 mg PO DAILY #30 tablet 06/25/17 [Rx] Aspirin 81 mg PO DAILY #30 tab.chew 07/23/17 [Rx] Insulin DETEMIR [Levemir] 70 unit SQ BID 30 Days [id number] 07/23/17 [Rx] 3 Allergy/AdvReac Type Severity Reaction Status Date / Time Amoxicillin Allergy Hives Verified 06/22/17 14:08 metoclopramide [From Reglan] AdvReac Shakiness Verified 06/22/17 14:08 ondansetron AdvReac Vomiting Verified 06/22/17 14:08 [From Zofran (as hydrochloride)] All Systems PM: A 10-system review of systems was performed and is negative for pertinent findings except as documented above in the HPI. Review of systems: Reviewed all the systems everything is bening except the systems and symptoms I mentioned in HPI - Constitutional Vitals: Temp Pulse Resp BP Pulse Ox 98 F 89 18 174/80 97 08/04/17 21:36 08/04/17 21:36 08/04/17 21:36 08/04/17 21:36 08/04/17 21:36 General appearance: Present: cooperative, A&O X 3, answers questions appropriately - Head Head exam: Present: atraumatic, normocephalic - Neck Neck exam general surgery: Present: supple - Respiratory Respiratory exam: Present: decreased breath sounds, wheezes (mild to moderate). Absent: rales, respiratory distress, rhonchi - Cardiovascular Cardiovascular exam: Present: RRR, +S1, +S2. Absent: tachycardia - GI/Abdominal GI/Abdominal exam: Present: normal bowel sounds, soft. Absent: rebound, rigid, tenderness - Extremities Exam Extremities exam: Absent: calf tenderness, pedal edema, tenderness Additional comments: s/p b/l foot amputation. She does have chronic non healing ulcer over Left foot stump on lateral region. No purulent discharge noticed..No erythema noticed,, no signs of infection noticed - Back Exam Back exam: Absent: CVA tenderness (L), CVA tenderness (R) - Neurological Exam Neurological exam: Present: alert, oriented X3, no focal deficits - Psychiatric Psychiatric exam: Present: normal affect, normal mood - Skin Skin exam: Absent: rash
[2017-08-04] MEDS ORDERED: amLODIPine 5 MG TABLET PO SCH (22:00)
[2017-08-04] MEDS ORDERED: Lisinopril 20 MG TABLET PO SCH (22:00)
[2017-08-04] MEDS: Insulin DETEMIR 100 UNIT/ML X5UNITS SQ SCH (22:34)
[2017-08-05 03:34] LABS: Basophils % 0.6 %; Eosinophils # 0.3 K/mcL (0.0-0.6); Eosinophils % 5.2 %; Hematocrit 30.8 % (35.3-44.9); Hemoglobin 9.6 g/dL (11.5-15.4); Immature Granulocytes % 0.8 % (0-4); Immature Platelets 5.4 % (1.1-6.1); Lymphocytes # 0.9 K/mcL (0.6-4.6); Lymphocytes % 14.9 %; Mean Corpuscular HGB Conc 31.2 g/dL (31.6-35.5); Mean Corpuscular Hemoglobin 28.2 pg (28.0-33.3); Mean Corpuscular Volume 90.3 fL (83.0-100.0); Mean Platelet Volume 11.4 fL (9.4-12.4); Monocytes # 0.6 K/mcL (0.0-1.3); Monocytes % 9.9 %; Neutrophils # 4.2 K/mcL (1.6-8.9); Nucleated Red Blood Cells 0.5 /100 WBC (0); Platelet Count 179 K/mcL (140-400); Red Blood Count 3.41 M/mcL (3.82-4.97); Red Cell Distribution Width 16.1 % (11.5-14.5); Segmented Neutrophils % 68.6 %
[2017-08-05 03:54] LABS: Calcium 8.6 mg/dL (8.6-10.3); Magnesium 2.3 mg/dL (1.6-2.6); Potassium 4.7 mEq/L (3.5-5.1)
[2017-08-05] MEDS ORDERED: BETHANECHOL CHLORIDE 5 MG PO SCH (09:00)
[2017-08-05] MEDS ORDERED: Aspirin 81 MG TAB.CHEW PO SCH (09:00)
--- NOTE | 2017-08-05 09:27 | Nephrology Consult Note ---
Date of Encounter: 08/05/17 Time of Encounter: 09:05 Assessment and Plan (1) ESRD (end stage renal disease) on dialysis Current Visit: No Status: Chronic Volume overload in setting of missed HD. Will do HD today, orders given. History of Present Illness - Reason for Consult end stage renal disease - History of Present Illness Ms. Benavidez is a 37 year old female with ESRD who dialyzes at [place] on MWF. Other PMH- coronary artery disease, diabetes, dialysis, hyperlipidemia, hypertension, myocardial infarction, anxiety, depression, angioplasty/stent, hysterectomy, She did not dialyze yesterday due to transportation issues and inclement weather. Yesterday during course of day she became SOB and went to [facility]. CXR there-interstitial lung markings with small left pleural effusion. She was subsequently transferred to [facility] for continuance of care. It was felt last night that she did not need Lasix or HD, since SOB stablized. This morning she states as long as she doesnt move around her breathing is okay , but admits dyspnea with little exertion. Past Med Surg Social Fam HX - Past Medical History Medical history: coronary artery disease, diabetes, dialysis, hyperlipidemia, hypertension, myocardial infarction, renal disease Psychiatric history: anxiety, depression - Past Surgical History Surgical History: angioplasty/stent, hysterectomy, other - Social History Smoking Status: Former smoker Smokeless Tobacco Status: No Alcohol use: none Drug use: none - Family History Mother Adopted: No Family Member Ethnicity: Non- Living Status: Still Living Hx Family Cardiac Disorders: Yes (Father with coronary artery disease) Hx Family Respiratory Disorders: No Hx Family Cancer: Yes (Breast) Hx Family GI Disorders: No Hx Family Endocrine Disorder: Yes (Mother with dm) Hx Family Neuromuscular Disorders: No Hx Family Neurologic Disorders: No Hx Family HEENT Disorders: No Hx Family Autoimmune Disorders: No Medications and Allergies HYDROcodone/Acet 10/325 mg [[place] 10-325 mg] 1 tab PO QID PRN 01/21/16 [History] Atorvastatin [Lipitor] 40 mg PO HS #30 tablet 05/14/17 [Rx] Bethanechol Chloride [Urecholine] 5 mg PO BID 06/22/17 [History] Omeprazole [PriLOSEC] 40 mg PO DAILY 06/22/17 [History] Carvedilol [Coreg] 25 mg PO BIDWM #60 tablet 06/25/17 [Rx] Lisinopril [Zestril] 20 mg PO BID #30 tablet 06/25/17 [Rx] amLODIPine [Norvasc] 10 mg PO DAILY #30 tablet 06/25/17 [Rx] Aspirin 81 mg PO DAILY #30 tab.chew 07/23/17 [Rx] Insulin DETEMIR [Levemir] 70 unit SQ BID 30 Days [id number] 07/23/17 [Rx] Clopidogrel [Plavix] 75 mg PO DAILY 08/05/17 [History] 3 Allergy/AdvReac Type Severity Reaction Status Date / Time Amoxicillin Allergy Hives Verified 06/22/17 14:08 metoclopramide [From Reglan] AdvReac Shakiness Verified 06/22/17 14:08 ondansetron AdvReac Vomiting Verified 06/22/17 14:08 [From Zofran (as hydrochloride)] Review of Systems All Systems: reviewed and no additional remarkable complaints except as stated Exam - Vital Signs Vital signs: Initial Vital Signs Temp Pulse Resp BP Pulse Ox 98 F 89 18 174/80 97 08/04/17 21:36 08/04/17 21:36 08/04/17 21:36 08/04/17 21:36 08/04/17 21:36 Vital Signs - Last 8 Hours Temp Pulse Resp BP Pulse Ox 08/05/17 07:49 97.8 F 83 18 143/68 97 08/05/17 05:13 97.8 F 82 16 165/92 96 Intake and Output 08/04/17 08/05/17 08/05/17 23:59 07:59 15:59 Intake Total 0 / 0 Balance 0 / 0 Intake: Oral 0 / 0 Other: Weight 94.971 kg 94.9 kg Blood Glucose* 248 128 Patient Weight 08/05/17 23:59 Weight 94.9 kg - General Appearance General appearance: well-developed, well-nourished, appears started age EENT: mucous membranes moist Neck: no JVD Respiratory: clear Cardiology: no edema, regular rate, regular rhythm Gastrointestinal: normoactive bowel sounds, no tenderness Results - Lab Results 08/05/17 02:57 08/05/17 02:57 Most recent lab results Calcium 8.6 mg/dL (8.6-10.3) 08/05/17 02:57 Magnesium 2.3 mg/dL (1.6-2.6) 08/05/17 02:57 Consult Discharge Plan - Plan Referrals: Colt Espinoza MD [Primary Care Provider] -
[2017-08-05] MEDS ORDERED: 0.9 % Sodium Chloride 250 ML IVC PRN (09:47)
[2017-08-05] MEDS ORDERED: *HR* Heparin 10,000 UNIT/10 ML VIAL IV PRN (09:47)
[2017-08-05] MEDS ORDERED: 0.9 % Sodium Chloride 1,000 ML PRIME SCH (10:00)
[2017-08-05] MEDS: Insulin DETEMIR 100 UNIT/ML X5UNITS SQ SCH (10:03)
[2017-08-05] MEDS: Insulin LISPRO 300 UNITS/3 ML VIAL SQ SCH ×2 (10:16→12:12)
[2017-08-05] MEDS ORDERED: *HR* Promethazine 25 MG/ML VIAL IVP PRN (11:46)
--- NOTE | 2017-08-05 12:32 | Discharge Summary ---
Date of Encounter: 08/05/17 Time of Encounter: 12:29 - Discharge Diagnosis (1) Volume overload Priority: Primary Status: Acute Qualifiers: Hypervolemia type: other Qualified Code(s): E87.79 - Other fluid overload (2) Chronic respiratory failure with hypoxia Priority: Secondary Status: Chronic (3) Anemia in chronic kidney disease (CKD) Priority: Secondary Status: Chronic Qualifiers: Chronic kidney disease stage: on chronic dialysis Qualified Code(s): N18.6 - End stage renal disease; D63.1 - Anemia in chronic kidney disease; D63.1 - Anemia in chronic kidney disease; Z99.2 - Dependence on renal dialysis; Z99.2 - Dependence on renal dialysis; Z99.2 - Dependence on renal dialysis; Z99.2 - Dependence on renal dialysis (4) ESRD (end stage renal disease) on dialysis Priority: Secondary Status: Chronic (5) CAD (coronary artery disease) Priority: Secondary Status: Chronic Qualifiers: Coronary Disease-Associated Artery/Lesion type: [place] artery [place] vs. transplanted heart: marshall heart Associated angina: without angina Qualified Code(s): I25.10 - Atherosclerotic heart disease of marshall coronary artery without angina pectoris (6) DM type 1 (diabetes mellitus, type 1) Priority: Secondary Status: Chronic Qualifiers: Diabetes mellitus complication status: with kidney complications Diabetes mellitus complication detail: with chronic kidney disease Chronic kidney disease stage: on chronic dialysis Qualified Code(s): E10.22 - Type 1 diabetes mellitus with diabetic chronic kidney disease; N18.6 - End stage renal disease; N18.6 - End stage renal disease; N18.6 - End stage renal disease; N18.6 - End stage renal disease; Z99.2 - Dependence on renal dialysis; Z99.2 - Dependence on renal dialysis; Z99.2 - Dependence on renal dialysis; Z99.2 - Dependence on renal dialysis (7) Gastroparesis Priority: Secondary Status: Chronic (8) HTN (hypertension) Priority: Secondary Status: Chronic Qualifiers: Hypertension type: essential hypertension Qualified Code(s): I10 - Essential (primary) hypertension (9) Medical non-compliance Priority: Secondary Status: Chronic - Discharge Medications Home Medications: HYDROcodone/Acet 10/325 mg [[place] 10-325 mg] 1 tab PO QID PRN 01/21/16 [History] Atorvastatin [Lipitor] 40 mg PO HS #30 tablet 11/17/17 [Rx] Bethanechol Chloride [Urecholine] 5 mg PO BID 06/22/17 [History] Omeprazole [PriLOSEC] 40 mg PO DAILY 06/22/17 [History] Carvedilol [Coreg] 25 mg PO BIDWM #60 tablet 06/25/17 [Rx] Lisinopril [Zestril] 20 mg PO BID #30 tablet 06/25/17 [Rx] amLODIPine [Norvasc] 10 mg PO DAILY #30 tablet 06/25/17 [Rx] Aspirin 81 mg PO DAILY #30 tab.chew 07/23/17 [Rx] Insulin DETEMIR [Levemir] 70 unit SQ BID 30 Days [id number] 07/23/17 [Rx] Clopidogrel [Plavix] 75 mg PO DAILY 08/05/17 [History] Allergies/Adverse Reactions: 3 Allergy/AdvReac Type Severity Reaction Status Date / Time Amoxicillin Allergy Hives Verified 06/22/17 14:08 metoclopramide [From Reglan] AdvReac Shakiness Verified 06/22/17 14:08 ondansetron AdvReac Vomiting Verified 06/22/17 14:08 [From Zofran (as hydrochloride)] Date of admission: 08/04/17 21:21 Primary care physician: Colt Espinoza MD Consults: 08/04/17 21:41 Consult to Nephrology [CONS] Routine Consulting Provider: [facility] Reason for Consult: Acute SOB ..Missed HD today Call Completed: No 08/05/17 10:00 Consult to Dialysis [CONS] ONCE Discharging clinician: Ruthann Turner Anticipated date of discharge: 08/05/17 - Patient Status Disposition: Home Health Service Condition: Fair Functional capacity at discharge: wheelchair bound Overall status at discharge: patient is progressing back to baseline - Discharge Instructions Follow Up With: Colt Espinoza MD [Primary Care Provider] - 08/19/17 2:00 pm Additional Instructions: F/up with PCP in 1-2 weeks F/up with HD 3 times/week- MWF - Diet and Activity Activity: as per physical therapy, wear oxygen at all times Diet: diabetic diet, low fat, low cholesterol, low salt diet, other (renal diet , fluid restriction to 1.5L/day) Hospital course: Ms. Benavidez is a 37 year old female with the above medical problems including medical noncompliance, well known to our service with frequent admissions, was transferred from [place] emergency room for evaluation of shortness of breath. Patient was due for hemodialysis on the day of presentation, but could not make it due to inclement weather conditions. She was admitted for dyspnea secondary to possible volume overload. Chest x-ray from the emergency room apparently showed Increased interstitial lung markings with small left pleural effusion. Nephrology was consulted and patient underwent hemodialysis with significant improvement in symptoms. Her labs and telemetry monitoring showed no other acute abnormalities. Patient is currently medically stable for discharge. Home health services are being resumed. - Time Spent with Patient Total time spent providing and/or coordinating discharge services: Greater than 30 minutes (40 min) - Constitutional Vitals: Temp Pulse Resp BP Pulse Ox 97.8 F 83 18 143/68 97 08/05/17 07:49 08/05/17 07:49 08/05/17 07:49 08/05/17 07:49 08/05/17 07:49 General appearance: Present: cooperative, A&O X 3, obese, answers questions appropriately - Cardiovascular Cardiovascular exam: Present: RRR, +S1, +S2. Absent: diastolic murmur, gallop, rubs, systolic murmur
--- NOTE | 2017-08-05 12:35 | Physician Discharge Referral ---
Home Health/Hosp Referral Info Transfer to: Home Health Attending Provider: Ruthann Turner Provider in Charge Post Discharge: PCP - Diagnosis (1) Volume overload Priority: Primary Status: Acute (2) Chronic respiratory failure with hypoxia Priority: Secondary Status: Chronic (3) Anemia in chronic kidney disease (CKD) Priority: Secondary Status: Chronic (4) ESRD (end stage renal disease) on dialysis Priority: Secondary Status: Chronic (5) CAD (coronary artery disease) Priority: Secondary Status: Chronic (6) DM type 1 (diabetes mellitus, type 1) Priority: Secondary Status: Chronic (7) Gastroparesis Priority: Secondary Status: Chronic (8) HTN (hypertension) Priority: Secondary Status: Chronic (9) Medical non-compliance Priority: Secondary Status: Chronic - Respiratory Orders Oxygen / L per min (2-3L/min via [place]) Smoking Cessation: Smoking cessation has been advised. For more information, call the [employer] Tobacco Quit Line at 6-779-MATZ-NOW. - Diet/Nutrition Diet/Nutrition Orders: Renal, Cardiac, No Concentrated Sweets (diabetic) - Activity Activity Orders: Chair - Services Needed Following services are medically necessary services: Nursing, Home Health Aide, Physical Therapy, Occupational Therapy - Transfer Medications Home Medications: HYDROcodone/Acet 10/325 mg [[place] 10-325 mg] 1 tab PO QID PRN 01/21/16 [History] Atorvastatin [Lipitor] 40 mg PO HS #30 tablet 05/14/17 [Rx] Bethanechol Chloride [Urecholine] 5 mg PO BID 06/22/17 [History] Omeprazole [PriLOSEC] 40 mg PO DAILY 06/22/17 [History] Carvedilol [Coreg] 25 mg PO BIDWM #60 tablet 06/25/17 [Rx] Lisinopril [Zestril] 20 mg PO BID #30 tablet 06/25/17 [Rx] amLODIPine [Norvasc] 10 mg PO DAILY #30 tablet 06/25/17 [Rx] Aspirin 81 mg PO DAILY #30 tab.chew 07/23/17 [Rx] Insulin DETEMIR [Levemir] 70 unit SQ BID 30 Days [id number] 07/23/17 [Rx] Clopidogrel [Plavix] 75 mg PO DAILY 08/05/17 [History] Dextromethorphan Hb/Doxylamine [Robitussin Nighttime Cough Dm] 5 ml PO Q6HR PRN #1 bottle 08/10/17 [Rx] Allergies/Adverse Reactions: 3 Allergy/AdvReac Type Severity Reaction Status Date / Time Amoxicillin Allergy Hives Verified 06/22/17 14:08 metoclopramide [From Reglan] AdvReac Shakiness Verified 06/22/17 14:08 ondansetron AdvReac Vomiting Verified 06/22/17 14:08 [From Zofran (as hydrochloride)] Certification: Further, I certify that my clinical findings support that this patient is homebound (i.e. absences from home require considerable and taxing effort and are for medical reasons or [employer] services or infrequently or short duration when for other reasons) because: Homebound Reason: Patient requires assistance of a person or device to safely leave home, Leaving home requires considerable and taxing effort due to condition Attestation: My signature below is to certify that this patient is under my care and that I, or nurse practitioner, or a physician's social and human services assistant working with me, has a face-to -face encounter with this patient.
[2017-08-05] MEDS ORDERED: 0.9 % Sodium Chloride 1,000 ML ONE (14:07)
[2017-08-05 15:46] VITALS: BP 169/93
[2017-08-05] MEDS ORDERED: *HR* Heparin 5,000 UNIT/ML VIAL SQ SCH (18:00)
== END 2017-08-05 17:29 | disposition home health service (06) ==
LOC: 2ANU → SUATTDRO 21:21
PROVIDERS: ADMIT Family Medicine; ATTEND Internal Medicine